=== PATIENT | female | born 1950 | race Caucasian/White ===

== ENCOUNTER 2017-06-07 08:33 | Emergency (ER) | payer MEDICARE ==
[2017-06-07 09:12] LABS: BASOPHILS 0.1 % (0-2); EOSINOPHILS 0 % (0-7); HEMATOCRIT 36.7 % (36.0-48.0); HEMOGLOBIN 11.9 g/dL (12-16); IMMATURE GRANULOCYTES 0.1 % (0-5); LYMPHOCYTES 7.4 % (15-50); MCH 28.7 pg (26.0-34.0); MCHC 32.4 g/dL (31.0-37.0); MCV 88.4 fL (80.0-100.0); MEAN PLATELET VOLUME 8.7 fL (7.4-10.4); MONOCYTES 7.2 % (2-11); NEUTROPHILS 85.2 % (40-80); PLATELET COUNT 190 10x3/uL (130-400); RBC 4.15 10x6/uL (4.00-5.40); WBC 8.9 10x3/uL (4.8-10.8)
[2017-06-07 09:29] LABS: ALBUMIN 3.5 g/dL (3.4-5.0); ANION GAP 12.9 mmol/L (8-16); BILIRUBIN - TOTAL 0.43 mg/dL (0.2-1.3); CALCIUM 9.4 mg/dL (8.5-10.1); CARBON DIOXIDE 27.6 mmol/L (21.0-32.0); POTASSIUM - SERUM 3.5 mmol/L (3.5-5.1); PROTEIN - SERUM 7.9 g/dL (6.4-8.2)
[2017-06-07 10:12] LABS: APPEARANCE SLT CLOUDY (CLEAR); BACTERIA FEW /hpf (NONE SEEN); BILIRUBIN NEGATIVE (NEGATIVE); COLOR YELLOW (YELLOW); EPITHELIAL CELLS 0-5 /hpf (0-5); GLUCOSE NEGATIVE (NEGATIVE); KETONE NEGATIVE (NEGATIVE); NITRITE NEGATIVE (NEGATIVE); PROTEIN NEGATIVE (NEGATIVE); RED CELLS - URINE OCC /hpf (0-5); SPECIFIC GRAVITY 1.005 (1.005-1.020); UROBILINOGEN NORMAL (NORMAL); WHITE CELLS - URINE OCC /hpf (0-5)
[2017-06-07 10:13] LABS: HYALINE CAST 0-5 /lpf (NONE SEEN); MUCUS >1+ /lpf (NONE SEEN); WAXY CAST RARE /lpf (NONE SEEN)
== END 2017-06-07 13:24 | disposition home or self-care (01) ==
LOC: D.ER 08:33
PROVIDERS: Emergency Medicine
DX: K52.9 Noninfective gastroenteritis and colitis, unspecified (principal); R00.0 Tachycardia, unspecified

== ENCOUNTER 2018-11-04 16:21 | Inpatient (IN) | payer OTHER ==
[~2018-11-04] VITALS: Ht 160 cm; Wt 55.2 kg
--- NOTE | ~2018-11-04 | OP ---
PATIENT NAME: CHON LUI MEDICAL RECORD: [id number] :50 LOCATION:[facility] D.2316 ADMISSION DATE:11/04/18 SURGEON: RINA RITTER MD DATE OF OPERATION: 11/23/2018 PREOPERATIVE DIAGNOSES: 1. 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 2. Bilateral pneumonia. POSTOPERATIVE DIAGNOSES: 1. 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 2. Bilateral pneumonia. 3. Very thick secretions in both lungs. The secretions were so thick, they were almost sludge-like. PROCEDURE: 1. Resection of gastrocutaneous stoma with partial gastrectomy. 2. Placement of wound VAC over the resection site. 3. Therapeutic bronchoscopy with bronchoalveolar lavage. SURGEON: Rina Ritter MD BLOCK GREASER: None. BLOOD LOSS: Minimal. ANESTHESIA: General. COMPLICATIONS: None. OPERATIVE COURSE: The patient was conveyed to the operating room electively on 11/23/2018. General anesthesia was induced by the anesthesia staff. A bronchoscopic adapter was applied to the tracheostomy tube. I then advanced a well-lubricated bronchoscope. I first interrogated the right lung and then the left lung. The secretions were dark and almost sludge-like. This required a good bit of bronchoalveolar lavage with normal saline. Cultures were obtained. I irrigated all the segmental bronchi until they were all completely clear. This was done on both sides. The bronchoscope was then withdrawn. The bronchoscopic adapter was then removed. The abdomen was then sterilely prepped and draped. A circular incision was accomplished around the gastrocutaneous stoma in the left upper quadrant. I dissected down to the abdominal wall fascia. I then dissected in toward the gastrocutaneous stoma. The stomach was identified. I then bluntly dissected the stomach from around the peritoneum. I was able to elevate the stomach out through the fascial defect. I then stapled across the opening in the stomach performing a partial tangential gastrectomy with a TA-30 stapler. I transected the stomach distal to the staple line. I then oversewed the staple line with multiple interrupted horizontal mattress 3-0 Vicryl sutures. The stomach was then returned to the abdominal cavity. The muscle and fascia of the abdominal wall was closed with multiple interrupted horizontal mattress #1 Vicryls. Subcutaneous tissues were closed loosely with horizontal mattress #1 Vicryls. I then applied a cellophane type dressing over OPERATIVE REPORT [id number] CHON LUI the open area and then scored this and placed a black wound VAC sponge over the wound. I then bridged this out onto the left flank. An incision was accomplished over the cellophane type dressings on the left flank and a wound VAC disc was then applied and attached to suction, which held a good "raisin." The patient was then extubated and conveyed to the post-anesthesia care unit where she was in stable condition. We can begin using the indwelling gastrostomy tube immediately for food and medications. From my standpoint, the patient could travel and go to the long-term care facility in [place] in transfer tomorrow. TRANSINT:[id number] Voice Confirmation ID: [id number] DOCUMENT ID: [id number] RINA RITTER MD CC: DIANA PRUITT MD, MARY KAY SARKAR MD and DEEPALI MONTAÑO DO [id number] DICTATION DATE: 11/23/182212 LITHOGRAPHED PLATE INSPECTOR: 11/24/18 0250 ADM IN [place] [address] [place] [address]
[2018-11-04 17:37] VITALS: BP 131/47
[2018-11-04 17:56] LABS: BASOPHILS 0.2 % (0-2); EOSINOPHILS 0.5 % (0-7); HEMOGLOBIN 11.6 g/dL (12-16); IMMATURE GRANULOCYTES 0.5 % (0-5); LYMPHOCYTES 8.5 % (15-50); MCH 27.5 pg (26.0-34.0); MCHC 32.2 g/dL (31.0-37.0); MCV 85.3 fL (80.0-100.0); MEAN PLATELET VOLUME 8.7 fL (7.4-10.4); MONOCYTES 3.8 % (2-11); NEUTROPHILS 86.5 % (40-80); RBC 4.22 10x6/uL (4.00-5.40); RDW 18.9 % (11.5-14.5); WBC 6.4 10x3/uL (4.8-10.8)
[2018-11-04 18:10] LABS: PLATELET COUNT 280 10x3/uL (130-400)
[2018-11-04 18:31] LABS: ALBUMIN 2.8 g/dL (3.4-5.0); ALKALINE PHOSPHATASE 92 U/L (46-116); ALT (SGPT) 18 U/L (10-68); BILIRUBIN - TOTAL 0.52 mg/dL (0.2-1.3); CALC OSMOLALITY 275 mosm/kg (275-300); CALCIUM 8.6 mg/dL (8.5-10.1); CARBON DIOXIDE 28.9 mmol/L (21.0-32.0); CHLORIDE - SERUM 96 mmol/L (98-107); CREATININE - SERUM 0.7 mg/dL (0.6-1.3); GLUCOSE 114 mg/dL (74-106); POTASSIUM - SERUM 3.8 mmol/L (3.5-5.1); SODIUM 136 mmol/L (136-145); UREA NITROGEN 20 mg/dL (7-18); eGFR NON AFRICAN AMERICAN 88 mL/min (90-120)
[2018-11-04 20:00] VITALS: BP 96/53
--- NOTE | 2018-11-04 21:50 | NUR ---
PT ALERT & ORIENTED. RED DRAINAGE AROUND PEG TUBE. PT C/O PAIN AND ASKS IF SHE CAN EAT/DRINK. PAGED ON-CALL PHYSICIAN. PT ON REGULAR DIET AND GAVE NORCO-5 FOR PAIN PER TELEPHONE ORDER. PT'S DAUGHTER BRINGING HOME MED LIST UP LATER. NO OTHER NEEDS. WILL CONTINUE TO MONITOR.
[2018-11-04] MEDS ORDERED: IPRAT-ALBUT 0.5-3 ML UPD (23:05)
[2018-11-04] MEDS ORDERED: ASPIRIN EC81 M1 PO (23:06)
[2018-11-04] MEDS ORDERED: LIPITOR20 MG PO (23:07)
[2018-11-04] MEDS ORDERED: SYNTHROID75 MCG PO (23:08)
[2018-11-04] MEDS ORDERED: LOPRESSOR25 MG PO (23:09)
[2018-11-04] MEDS ORDERED: PLAVIX75 MG PO (23:09)
[2018-11-04] MEDS ORDERED: HYDROCODON-ACE1 EAC2 PO (23:11)
[2018-11-04] MEDS ORDERED: HYDROCODON-ACET15 ML PO (23:12)
[2018-11-04 23:55] VITALS: BP 86/40
[2018-11-05 04:00] VITALS: BP 116/59
[2018-11-05 06:31] LABS: ALBUMIN 2.2 g/dL (3.4-5.0); ALKALINE PHOSPHATASE 72 U/L (46-116); BASOPHILS 0.2 % (0-2); BILIRUBIN - TOTAL 0.38 mg/dL (0.2-1.3); CALCIUM 7.8 mg/dL (8.5-10.1); CARBON DIOXIDE 28.5 mmol/L (21.0-32.0); CHLORIDE - SERUM 101 mmol/L (98-107); CREATININE - SERUM 0.6 mg/dL (0.6-1.3); GLUCOSE 85 mg/dL (74-106); HEMATOCRIT 30.6 % (36.0-48.0); HEMOGLOBIN 9.7 g/dL (12-16); IMMATURE GRANULOCYTES 0.2 % (0-5); LYMPHOCYTES 13.8 % (15-50); MCH 27.4 pg (26.0-34.0); MCHC 31.7 g/dL (31.0-37.0); MCV 86.4 fL (80.0-100.0); MEAN PLATELET VOLUME 8.5 fL (7.4-10.4); MONOCYTES 6.2 % (2-11); NEUTROPHILS 77.6 % (40-80); PLATELET COUNT 226 10x3/uL (130-400); PROTEIN - SERUM 6.1 g/dL (6.4-8.2); RBC 3.54 10x6/uL (4.00-5.40); SODIUM 136 mmol/L (136-145); eGFR NON AFRICAN AMERICAN > 90 mL/min (90-120)
[2018-11-05 06:33] LABS: ALT (SGPT) 13 U/L (10-68); CALC OSMOLALITY 270 mosm/kg (275-300); POTASSIUM - SERUM 3.2 mmol/L (3.5-5.1); UREA NITROGEN 12 mg/dL (7-18)
[2018-11-05 06:43] LABS: WBC 4.1 10x3/uL (4.8-10.8)
[2018-11-05 09:04] VITALS: BP 103/46
--- NOTE | 2018-11-05 10:33 | NUR ---
ALERT AND ORIENTED X3. SLIGHT SOB NOTED WITH INSPIRATORY CRACKLES NOTED TO BUQ ANTERIOR. TELEMETRY INTACT SR100 WITH PAC. PEG TUBE INTACT WITH DRAINAGE NOTED WITH DRESSING CHANGED. ENCOURAGD TO USE CALL LIGHT FOR ASSIST.
[2018-11-05 12:54] VITALS: BMI 20.5
[2018-11-05 14:14] VITALS: BP 100/44
[2018-11-05 14:32] VITALS: BP 100/44
--- NOTE | 2018-11-05 14:56 | NUR ---
RESTING WITH EYES CLOSED WITH SCD'S IN PLACE WITHOUT ANY S/S OF THROMBOSIS NOTED.VERBALIZED RELIEF OF PAIN AT THIS TIME WITH CALL LIGHT IN REACH
[2018-11-05 17:53] VITALS: BP 129/61
[2018-11-05 20:00] VITALS: BP 150/77
--- NOTE | 2018-11-05 23:45 | NUR ---
PT INCONTINENT OF URINE. CHANGED BED AND GOWN. PT EXTREMELY SHORT OF BREATH TRYING TO WALK TO TOILET WITH WALKER. PUT PT ON O2 2L/NC. PT HAS DIFFICULTY SWALLOWING PILLS. COMPLETE ASSESSMENT PER FLOW-SHEET. WILL CONTINUE TO MONITOR.
[2018-11-06] VITALS: BP 141/69
--- NOTE | 2018-11-06 02:00 | NUR ---
LOUD HIGH PITCHED SOUND UPON INSPIRATION WHILE PT IS SLEEPING. UPON AUSCULTATION, SOUND MAY BE COMING FROM THROAT RATHER THAN CHEST. PT STATES SHE FEELS FINE AND DENIES CHEST PAIN. OXYGEN SAT IS 96% ON 2L/NC. CALLED RESP TO ASSESS.
--- NOTE | 2018-11-06 02:43 | NUR ---
RT KAYCEE ASSESSED PT. SHE AGREES THAT SOUND IS COMING FROM PT'S THROAT RATHER THAN AIRWAY. OXYGEN SAT IS 99%. PT STATES SHE FEELS FINE. PT TOLD RT THAT SHE "ALWAYS SOUNDS LIKE THAT". NO DISTRESS NOTED. WILL CONTINUE TO MONITOR CLOSELY.
[2018-11-06 04:00] VITALS: BP 90/40
[2018-11-06 05:14] LABS: BASOPHILS 0.1 % (0-2); EOSINOPHILS 0.1 % (0-7); HEMOGLOBIN 10.1 g/dL (12-16); IMMATURE GRANULOCYTES 0.2 % (0-5); LYMPHOCYTES 8.2 % (15-50); MCH 27.8 pg (26.0-34.0); MCHC 32.6 g/dL (31.0-37.0); MCV 85.4 fL (80.0-100.0); MEAN PLATELET VOLUME 8.5 fL (7.4-10.4); MONOCYTES 3.2 % (2-11); NEUTROPHILS 88.2 % (40-80); PLATELET COUNT 208 10x3/uL (130-400); RBC 3.63 10x6/uL (4.00-5.40); RDW 18.5 % (11.5-14.5)
[2018-11-06 05:16] LABS: WBC 9.3 10x3/uL (4.8-10.8)
[2018-11-06 05:40] LABS: ALKALINE PHOSPHATASE 68 U/L (46-116); ALT (SGPT) 12 U/L (10-68); BILIRUBIN - TOTAL 0.68 mg/dL (0.2-1.3); CALC OSMOLALITY 269 mosm/kg (275-300); CALCIUM 7.8 mg/dL (8.5-10.1); CARBON DIOXIDE 23.7 mmol/L (21.0-32.0); CHLORIDE - SERUM 104 mmol/L (98-107); CREATININE - SERUM 0.6 mg/dL (0.6-1.3); GLUCOSE 121 mg/dL (74-106); POTASSIUM - SERUM 3.6 mmol/L (3.5-5.1); SODIUM 136 mmol/L (136-145); UREA NITROGEN 4 mg/dL (7-18); eGFR NON AFRICAN AMERICAN > 90 mL/min (90-120)
[2018-11-06 09:45] VITALS: BP 115/49
--- NOTE | 2018-11-06 10:31 | NUR ---
ALERT AND ORIENTED WITH INCREASED WEAKNESS NOTED. REQUIRES ASSIST TO BSC AND UNABLE TO AMBULATE TO BATHROOM. INCREASED DYSPHASIA BUT ABLE TO TAKE MEDICATIONS CRUSHED AND IN PUDDING. EXPIRATIORY WHEEZING NOTED WITH G-TUBE INTACT AND SITE CLEANED WITH SOROUS DRAINAGE NOTED. ENCOURAGED TO USE CALL LIGHT FOR ASSIST.
[2018-11-06 13:46] VITALS: BP 110/49
[2018-11-06 17:35] VITALS: BP 102/59
[2018-11-06 20:00] VITALS: BP 117/45
--- NOTE | 2018-11-06 20:00 | NUR ---
PT ALERT & ORIENTED. C/O ABDOMINAL PAIN 03/25. GAVE MORPHINE 2 MG IV PUSH. GAVE SCHEDULED MEDS. ASSISTED PT UP TO BEDSIDE COMMODE TO VOID. NO OTHER NEEDS. WILL REASSESS AND CONTINUE TO MONITOR.
[2018-11-07] VITALS: BP 114/43
[2018-11-07 04:00] VITALS: BP 102/54
[2018-11-07 05:50] LABS: BASOPHILS 0.2 % (0-2); EOSINOPHILS 1.2 % (0-7); HEMATOCRIT 30.1 % (36.0-48.0); HEMOGLOBIN 9.5 g/dL (12-16); IMMATURE GRANULOCYTES 0.2 % (0-5); LYMPHOCYTES 13.6 % (15-50); MCH 27.2 pg (26.0-34.0); MCHC 31.6 g/dL (31.0-37.0); MCV 86.2 fL (80.0-100.0); MEAN PLATELET VOLUME 8.3 fL (7.4-10.4); MONOCYTES 5.2 % (2-11); NEUTROPHILS 79.6 % (40-80); PLATELET COUNT 198 10x3/uL (130-400); RBC 3.49 10x6/uL (4.00-5.40); RDW 19.1 % (11.5-14.5)
[2018-11-07 06:16] LABS: ALBUMIN 1.9 g/dL (3.4-5.0); ALKALINE PHOSPHATASE 80 U/L (46-116); ALT (SGPT) 11 U/L (10-68); BILIRUBIN - TOTAL 0.49 mg/dL (0.2-1.3); CALC OSMOLALITY 270 mosm/kg (275-300); CALCIUM 7.7 mg/dL (8.5-10.1); CARBON DIOXIDE 25.8 mmol/L (21.0-32.0); CHLORIDE - SERUM 103 mmol/L (98-107); CREATININE - SERUM 0.7 mg/dL (0.6-1.3); GLUCOSE 93 mg/dL (74-106); SODIUM 137 mmol/L (136-145); UREA NITROGEN 3 mg/dL (7-18); eGFR NON AFRICAN AMERICAN 88 mL/min (90-120)
--- NOTE | 2018-11-07 08:07 | NUR ---
AWAKE AND ALERT. ORIENTED X3. NO C/O AT THIS TIME. LUNGS ARE CLEAR BIALTERALLY, NO COUGH NOTED. SKIN IS INTACT WITHOUT REDNESS EXCEPT PEG SITE WHICH IS LEAKING AT THIS TIME. LEFT PORT IS PATENT WITHOUT REDNESS AT INSERTION SITE. DENIES NEEDS.
[2018-11-07 08:55] VITALS: BP 104/53
--- NOTE | 2018-11-07 10:47 | NUR ---
AMBULATED ALMOST 100 FEET WITH PT. UP IN [facility].
--- NOTE | 2018-11-07 12:30 | NUR ---
ATE ONLY A FEW BITES OF LUNCH. DENIES NEEDS.
[2018-11-07 13:00] VITALS: BP 120/53
--- NOTE | 2018-11-07 13:30 | NUR ---
UP TO [facility] [place] ONE PERSON ASSIST. VOIDED WITHOUT DIFFICULTY.
--- NOTE | 2018-11-07 15:10 | NUR ---
REQUESTED AND GIVNE ONE HYDROCODONE PO FOR C/O PAIN AROUND PEG SITE. DENIES NEEDS.
--- NOTE | 2018-11-07 15:16 | MORECARE ---
CASE MANAGEMENT DISCHARGE SUMMARY PATIENT: CHON LUI UNIT: [id number] ADM DATE: 11/04/18 AGE: 68 : 50 SEX: F ROOM/BED: D.[facility] AUTHOR: NATALIA HEALY PHYSICIAN: REFERRING PHYSICIAN: DEEPALI MONTAÑO DO DATE OF SERVICE: 11/07/18 Discharge Plan Patient Name: CHON LUI Facility: [facility]:[place] : 1950 Planned Disposition: Home with Home Health Anticipated Discharge Date: Discharge Date: Expected LOS: Initial Reviewer: [email or web address] Initial Review Date: 11/07/2018 Generated: 11/07/18 4:16 pm Patient Name: CHON LUI Page [id number] at 1516 All edits/amendments must be made on the electronic document DICTATION DATE: 11/07/181514 HEALTHCARE APPLICATIONS ANALYST: NAHUN 11/07/181514 RPT#: [id number] DC DATE: STATUS: ADM IN [facility] [address] [place] [address] END OF REPORT
--- NOTE | 2018-11-07 15:28 | MORECARE ---
CASE MANAGEMENT DISCHARGE SUMMARY PATIENT: CHON LUI UNIT: [id number] ADM DATE: 11/04/18 AGE: 68 : 50 SEX: F ROOM/BED: D.2231 AUTHOR: NATALIA HEALY PHYSICIAN: REFERRING PHYSICIAN: DEEPALI MONTAÑO DO DATE OF SERVICE: 11/07/18 Discharge Plan Patient Name: CHON LUI Facility: [facility]:[place] [facility] : 1950 Planned Disposition: Home with Home Health Anticipated Discharge Date: Discharge Date: Expected LOS: Initial Reviewer: [email or web address] Initial Review Date: 11/07/2018 Generated: 11/07/18 4:28 pm Comments DCP- Discharge Planning Updated by [email or web address]: Maryse Simpson on 11/07/18 2:[address] Patient Name: CHON LUI Admission Status: Elective Accout number: [id number] Admission Date: 11-04-2018 : 1950 Admission Diagnosis: Attending: DEEPALI MONTAÑO Current LOS: 3 Anticipated DC Date: Planned Disposition: Home with Home Health Primary Insurance: [employer] Discharge Planning Comments: CM met with patient to discuss discharge planning, she is alone in the room. She lives with her daughter, son in law and 3 grand children. She states she uses a walker for ambulation, otherwise is independent with her ADL's. States she can drive, but usually has her daughter or son in law take her where she needs to go. States she gives her own tube feeding with a syringe and gets her feeding supplies from [facility]. I discussed the availability of rehab, SNF, home health and DME, she states her discharge plan is to return home with [facility] (she is current with them and has nursing and PT come out 3 times a week). CM will continue to follow and assist with discharge planning/needs. Compatibility Test Engineer: Maryse Simpson DCPIA - Discharge Planning Initial Assessment Updated by [email or web address]: Maryse Simpson on 11/07/18 3:17 pm * Is the patient Alert and Oriented? Yes * How many steps to enter\exit or inside your home? 1/0 * PCP Dr. Montaño * Pharmacy [facility] * Preadmission Environment Home with Family * ADLs Partial Dependent * Partial ADLs (Assistance needed) Ambulation * Equipment Enteral Feeding and Supplies Nebulizer Walker * List name and contact numbers for known caregivers / representatives who currently or will assist patient after discharge: Tanna Gaffney [facility] - [phone] * Verbal permission to speak to the caregivers and representatives has been obtained from the patient. Yes * Community resources currently utilized Home Health * Please name any agencies selected above. [facility] for Enteral supplies * Additional services required to return to the preadmission environment? No * Can the patient safely return to the preadmission environment? Yes * Has this patient been hospitalized within the prior 30 days at any hospital? Yes Last DP export: 11/07/18 2:16 p Patient Name: CHON LUI Page [phone] at 1528 All edits/amendments must be made on the electronic document DICTATION DATE: 11/07/181527 STOPPER MAKER HELPER: NAHUN 11/07/181527 RPT#: [id number] DC DATE: STATUS: ADM IN [facility] [address] [place] [address] END OF REPORT
[2018-11-07 16:00] VITALS: BP 98/47
--- NOTE | 2018-11-07 18:26 | NUR ---
ATE A FEW BITES OF SUPPER BUT HAD EATEN AN APPLESAUCE WITH [employer] EARLIER. NO CHANGES NOTED. DENIES NEEDS.
[2018-11-07 20:00] VITALS: BP 122/61
--- NOTE | 2018-11-07 20:00 | NUR ---
SITTING UP IN BED, NO C/O OR REQUEST, SEE SHIFT ASSESSMENT CALL LIGHT IN REACH
[2018-11-08] VITALS (57 sets, daily range): BP systolic 60–151; BP diastolic 37–82
[2018-11-08 06:52] LABS: ALKALINE PHOSPHATASE 98 U/L (46-116); ALT (SGPT) 11 U/L (10-68); BILIRUBIN - TOTAL 0.37 mg/dL (0.2-1.3); CALC OSMOLALITY 273 mosm/kg (275-300); CALCIUM 7.9 mg/dL (8.5-10.1); CARBON DIOXIDE 28.8 mmol/L (21.0-32.0); CHLORIDE - SERUM 102 mmol/L (98-107); CREATININE - SERUM 0.6 mg/dL (0.6-1.3); GLUCOSE 109 mg/dL (74-106); PROTEIN - SERUM 6.5 g/dL (6.4-8.2); SODIUM 138 mmol/L (136-145); UREA NITROGEN 3 mg/dL (7-18); eGFR NON AFRICAN AMERICAN > 90 mL/min (90-120)
[2018-11-08 07:00] LABS: BASOPHILS 0.3 % (0-2); EOSINOPHILS 1.8 % (0-7); HEMATOCRIT 31.7 % (36.0-48.0); HEMOGLOBIN 9.9 g/dL (12-16); IMMATURE GRANULOCYTES 0.5 % (0-5); LYMPHOCYTES 15.8 % (15-50); MCH 27.2 pg (26.0-34.0); MCHC 31.2 g/dL (31.0-37.0); MCV 87.1 fL (80.0-100.0); MEAN PLATELET VOLUME 8.4 fL (7.4-10.4); MONOCYTES 6.4 % (2-11); NEUTROPHILS 75.2 % (40-80); PLATELET COUNT 215 10x3/uL (130-400); RBC 3.64 10x6/uL (4.00-5.40); RDW 18.8 % (11.5-14.5); WBC 3.9 10x3/uL (4.8-10.8)
[2018-11-08 07:21] LABS: POTASSIUM - SERUM 2.8 mmol/L (3.5-5.1)
--- NOTE | 2018-11-08 07:59 | NUR ---
AWAKE AND ALERT. ORIENTED X3. NO C/O AT THIS TIME. LUNGS ARE CLEAR BILATERALLY, NO COUGH NOTED. SKIN IS INTACT IWTHOUT REDNESS EXCEPT PEG SITE WHICH IS LEAKING THICK LIGHT BRROWN FLUIDS. LEFT PORT IS PATENT WITHOUT REDNESS AT INSERTION SITE. DENIES NEEDS. NPO FOR PROCEDURE THIS AM.
--- NOTE | 2018-11-08 10:07 | NUR ---
PT RECIEVED. GI TEAM AT BEDSIDE. VS STATED HR 118 SINUS TACK BP 88/54 O2 SAT 95% O2 VIA VENT REFER TO FLOW SHEET FOR SETTINGS. DR SARKAR AT BEDSIDE GIVEN UDPATE. FAMILY IN WAITING AREA GIVEN UPDATE BUT UNABLE TO COME BACK AT THIS TIME WILL BRING BACK IN 15 MINUTES STATED OKAY.
--- NOTE | 2018-11-08 10:14 | NUR ---
DR RITTER AT [facility] GIVEN UPDATE
--- NOTE | 2018-11-08 10:18 | NUR ---
0945-SEE ANESTHESIA FLOW SHEET-CODE BLUE CALLED, CPR INTIATED. SEE CODE SHEET. 1000-ETTUBE PLACED, PATIENT ON PORTABLE VENT, WITH PORTABLE MONITOR. ESCORTED ON BED TO ICU ROOM 2316, RENETTA RHODES RN, DESIREE DALTON RT, STANFORD JEWELL RN.
--- NOTE | 2018-11-08 10:21 | NUR ---
DAUGHTER SAROJ GIVEN UPDATE CVL NEEDED ALL QUESTIONS ANSWERED CONSENT OBTAINED. DR RITTER AT BEDSIDE.
--- NOTE | 2018-11-08 11:15 | NUR ---
16FR FAIRCHILD PLACED AT THIS TIME, PT TOLERATED WELL, COMPLETE LINEN CHANGE, PT TOLERATED WELL
--- NOTE | 2018-11-08 11:45 | NUR ---
DAUGHTER AT BEDSIDE, UPDATE GIVEN, WILL CON'T TO MONITOR
--- NOTE | 2018-11-08 12:58 | NUR ---
NUTRITION F/U PT NOW IN ICU ON VENT. WILL MONITOR PT PROGRESS. ASSIST WITH NUTRITION SUPPORT IF NEEDED. RD FOLLOWING
--- NOTE | 2018-11-08 13:15 | NUR ---
COMPLETE BATH AND LINEN CHANGE,
[2018-11-08 14:22] LABS: CKMB 0.3 U/L (0.0-3.6); CREATINE KINASE 14 UL (21-215)
[2018-11-08 14:23] LABS: TROPONIN-I < 0.017 ng/mL (0.000-0.060)
--- NOTE | 2018-11-08 15:15 | NUR ---
PT AWAKE AT THIS TIME, BANGING ON SIDE RAILS, DR. SARKAR UPDATED,
--- NOTE | 2018-11-08 15:51 | NUR ---
UPDATE CALLED TO DR. GÓMEZ, NEW ORDERS RECIEVED,
--- NOTE | 2018-11-08 17:00 | NUR ---
FAMILY AT BEDSIDE, UPDATE GIVEN
--- NOTE | 2018-11-08 19:46 | NUR ---
PT RECEIVED WITH EYES CLOSED. ON VENT A/C RATE 20, TV 400, O2 40%, PEEP 5.0. PT WITH LEFT CHEST PORT ACCESSED WITH NS 100ML/HR AND LEVOPHED 13.1ML/HR OR 7MCG/MIN AND RIGHT GROIN CVL SALINE LOCKED. PT FOLLOWS COMMANDS. FAIRCHILD PATENT WITH YELLOW URINE NOTED. BILATERAL WRIST RESTRAINTS IN USE. WILL CONTINUE TO OBSERVE.
[2018-11-08 20:01] LABS: CKMB 0.2 U/L (0.0-3.6); CREATINE KINASE 13 UL (21-215)
[2018-11-08 20:11] LABS: TROPONIN-I < 0.017 ng/mL (0.000-0.060)
--- NOTE | 2018-11-08 21:28 | NUR ---
PT RESTING WITH EYES CLOSED. CONTINUES SEDATION. VITAL SIGNS STABLE. WILL CONTINUE TO OBSERVE.
[2018-11-09] VITALS (40 sets, daily range): BP systolic 101–156; BP diastolic 52–96
--- NOTE | 2018-11-09 01:15 | NUR ---
SCHEDULED CARDIAC LABS DRAWN FROM RIGHT GROIN CVL WITHOUT DIFFICULTY. PT TOLERATED WELL. VITAL SIGNS STABLE WILL CONTINUE TO OBSERVE.
[2018-11-09 03:36] LABS: CKMB 0.1 U/L (0.0-3.6); CREATINE KINASE 14 UL (21-215); TROPONIN-I 0.017 ng/mL (0.000-0.060)
[2018-11-09 05:03] LABS: BASOPHILS 0.3 % (0-2); EOSINOPHILS 0.5 % (0-7); HEMATOCRIT 26.2 % (36.0-48.0); HEMOGLOBIN 8.4 g/dL (12-16); IMMATURE GRANULOCYTES 0.3 % (0-5); LYMPHOCYTES 25.7 % (15-50); MCH 27.2 pg (26.0-34.0); MCHC 32.1 g/dL (31.0-37.0); MEAN PLATELET VOLUME 8.5 fL (7.4-10.4); MONOCYTES 10.1 % (2-11); NEUTROPHILS 63.1 % (40-80); PLATELET COUNT 177 10x3/uL (130-400); RBC 3.09 10x6/uL (4.00-5.40); RDW 18.7 % (11.5-14.5); WBC 3.9 10x3/uL (4.8-10.8)
[2018-11-09 05:11] LABS: MCV 84.8 fL (80.0-100.0)
--- NOTE | 2018-11-09 05:25 | NUR ---
PT WITH EYES CLOSED AND CHEST RISING. VSS. WILL CONTINUE TO OBSERVE.
[2018-11-09 05:36] LABS: ALBUMIN 1.6 g/dL (3.4-5.0); ALKALINE PHOSPHATASE 64 U/L (46-116); BILIRUBIN - TOTAL 0.41 mg/dL (0.2-1.3); CHLORIDE - SERUM 107 mmol/L (98-107); CREATININE - SERUM 0.5 mg/dL (0.6-1.3); GLUCOSE 108 mg/dL (74-106); PROTEIN - SERUM 5.1 g/dL (6.4-8.2); SODIUM 142 mmol/L (136-145); eGFR NON AFRICAN AMERICAN > 90 mL/min (90-120)
--- NOTE | 2018-11-09 05:40 | NUR ---
RT CHANGED VENT SETTINGS RATE OF 14 AND O2 30% DUE TO RESULTS OF ABG.
[2018-11-09 06:41] LABS: ALT (SGPT) 31 U/L (10-68); CALC OSMOLALITY 280 mosm/kg (275-300); UREA NITROGEN 4 mg/dL (7-18)
[2018-11-09 06:42] LABS: POTASSIUM - SERUM 2.6 mmol/L (3.5-5.1)
[2018-11-09 06:43] LABS: CALCIUM 6.9 mg/dL (8.5-10.1)
--- NOTE | 2018-11-09 07:15 | NUR ---
REPORT RECIEVED, SHIFT ASSESSMENT COMPLETE, PT IS ON VENT, FOLLOWS COMMANDS, ALL PPP, VSS, WILL CON'T TO MONITOR
--- NOTE | 2018-11-09 07:20 | NUR ---
POTASSIUM 2.[address] MONTAÑO MADE AWARE. FOLLOW ELECTROLYTE PROTOCOLS.
--- NOTE | 2018-11-09 09:30 | NUR ---
CONSENTS SIGNED FOR PROCEDURE TODAY, FAMILY AT BEDSIDE,
--- NOTE | 2018-11-09 10:52 | NUR ---
PT TO GI LAB AT THIS TIME,
--- NOTE | 2018-11-09 11:53 | NUR ---
PT BACK FROM GI LAB, HOOKED TO MONITORS, NEW PEG TO ABDOMEN, OLD PEG SITE CDI
--- NOTE | 2018-11-09 14:50 | OP ---
PATIENT NAME: CHON LUI MEDICAL RECORD: [id number] :50 LOCATION:[facility] D.2316 ADMISSION DATE:11/04/18 SURGEON: TERRY RITTER MD DATE OF OPERATION: 11/09/2018 PREOPERATIVE DIAGNOSIS: Malfunctioning gastrostomy tube. POSTOPERATIVE DIAGNOSES: Malfunctioning gastrostomy tube with scarring of the proximal esophagus that prevented a gastroscope from passing. PROCEDURE: Gastroduodenoscopy with 20-Mosotho percutaneous endoscopic gastrostomy tube placement. SURGEON: Terry Ritter MD GREENSMAN: None. BLOOD LOSS: Minimal. ANESTHESIA: General. The patient arrived in the OR intubated, being mechanically ventilated from the ICU. COMPLICATIONS: None. FINDINGS: Yesterday, during an attempt at a PEG placement the patient suffered a cardiopulmonary arrest. This was before the esophagus was even intubated. She has done pretty well overnight, is writing notes, is awake and we are planning on extubation today. The current G-tube is present within a fold on the left side, is causing ulcerations in the area as well as erythema. I would like to place this gastrostomy tube more centrally where it is less likely to cause ulceration of the underlying skin. OPERATIVE COURSE: The patient was conveyed to the operating room electively on 11/09/2018. General anesthesia was induced by the anesthesia staff. A bite-block was inserted. The patient was positioned in the reverse Trendelenburg position. A pillow was placed underneath her thoracolumbar spine. The abdomen was sterilely prepped and draped. I inserted a gastroscope into the mouth. I intubated the hypopharynx. Despite maneuvers such as jaw thrust extending the neck, flexing the neck and lifting up on the larynx, I was unable to safely intubate the esophagus due to scarring and likely due to the anterior pressure of the endotracheal tube. This approach was abandoned. Sutures to the indwelling left upper quadrant gastrostomy tube were cut. Through the gastrocutaneous stoma, the gastroscope was advanced through the pylorus into the duodenum. I then withdrew back into the stomach. I transilluminated. I found a spot I thought was going to be a pretty satisfactory spot for insertion of the gastrostomy tube and this was in the epigastrium. I transilluminated here, we could visualize this with the lights off in the room. A small skin incision was accomplished. Through the skin incision, I advanced an Angiocath and punctured the antrum of the stomach on the first try. I advanced a guidewire. This was grasped with an endoscopic snare and was withdrawn out through the gastrocutaneous stoma. The wire was attached to a pull-type gastrostomy tube, which was then pulled into place. I then reintubated the gastrocutaneous stoma, OPERATIVE REPORT [id number] CHON LUI visualized that the PEG tube was well placed. Hub and flange devices were attached. I then withdrew the gastroscope and we placed a stomal appliance over the gastrocutaneous stoma in the left upper quadrant. The patient was then conveyed back to the intensive care unit in a critical, but stable condition. TRANSINT:[id number] Voice Confirmation ID: [id number] DOCUMENT ID: [id number] TERRY RITTER MD at 1450 CC: [id number] DICTATION DATE: 11/09/18 1205 LEARNING SPECIALIST: 11/09/[address] [facility] [address] [place] [address]
--- NOTE | 2018-11-09 14:51 | OP ---
PATIENT NAME: CHON LUI MEDICAL RECORD: [id number] :50 LOCATION:[facility] D.2316 ADMISSION DATE:11/04/18 SURGEON: RINA RITTER MD DATE OF OPERATION: 11/08/2018 PREOPERATIVE DIAGNOSIS: Malfunctioning gastrostomy tube. POSTOPERATIVE DIAGNOSES: 1. Malfunctioning gastrostomy tube. 2. Cardiopulmonary arrest. PROCEDURE: 1. Attempted EGD. 2. Placement of right groin 16-cm triple lumen central venous catheter. SURGEON: Rina Ritter MD DIRECTOR OF DIAGNOSTIC IMAGING: None. BLOOD LOSS: Minimal. The risks, possible complications, and alternatives to the procedure were explained to the patient. She elects to proceed. I told the patient that if we are unable to place the PEG tube in a more favorable location, centrally in the abdomen between the xiphoid process and the umbilicus that we would not attempt to place a new gastrostomy tube and she would be left with the current gastrostomy tube. OPERATIVE COURSE: The patient was conveyed to the GI lab electively on 11/08/2018. IV sedation was induced by the anesthesia staff. She really did not receive much propofol at all. I intubated the hypopharynx. As I was getting ready to intubate the esophagus, the patient desaturated very quickly. We began bag valve masked ventilation. Due to prior radiation of the neck, it was difficult to ventilate her. We could not tilt her neck back. It was difficult to perform a jaw thrust maneuver as well. She continued to desat until she developed cardiopulmonary arrest. Wilmer cueto was called. We had ample people who came very quickly to assist with the code blue efforts. The code blue resuscitation was run by Dr. Henderson. Please see the code note. We were able to get the patient intubated and at the time that we transported the patient to the ICU, she had heart rate and pulse. I saw her in the ICU. I went and saw the patient's family. I told them of the events. We needed additional IV access for fluid bolus and IV medications. I discussed her case with Dr. Morillo. The family gave verbal consent for the central venous line. The right groin was sterilely prepped and draped. I avoided the internal jugular site as well as the subclavian site due to a very thickened skin and her history of radiation in these areas. I percutaneously accessed the right common femoral vein in an antegrade fashion. A guidewire passed easily. A small skin reny was accomplished. A vessel dilator was used to dilate the subcutaneous tract. A 16-cm triple lumen central venous catheter was inserted to the hub. It was sutured in place times 3. All lumens flushed easily and aspirated dark, nonpulsatile blood. No x-ray is necessary. I told the nursing staff that they can begin using the OPERATIVE REPORT [id number] CHON LUI central venous line immediately. TRANSINT:[id number] Voice Confirmation ID: [id number] DOCUMENT ID: [id number] RINA RITTER MD at 1451 CC: MARY KAY HENDERSON MD, DEEPALI MONTAÑO DO and FLORINA MORILLO [id number] DICTATION DATE: 11/08/18 1045 DEGREASING SOLUTION RECLAIMER: 11/08/18 1214 ADM IN [address] [place] [address]
--- NOTE | 2018-11-09 14:52 | NUR ---
EXTUBATED TO 4L NC, O2 SAT 98% O2 SAT
--- NOTE | 2018-11-09 17:00 | NUR ---
COMPLETE LINEN CHANGE, PT TOLERATED WELL
--- NOTE | 2018-11-09 19:15 | NUR ---
PT RECEIVED WITH EYES OPEN. VSS. N/C AT 4LPM. PT ALERT AND ORIENTED. STRIDER WITH HX NOTED DUE TO SCARING. PT WITH HX CANCER W/RADIATION. NO S/S OF DISTRESS. WILL CONTINUE TO OBSERVE
--- NOTE | 2018-11-09 23:15 | NUR ---
PT WITH INCREASED STRIDER AND ELEVATED HR. DR GÓMEZ CALLED WITH ORDERS FOR BIPAP. RT ATTEMPTING TO SET UP BIPAP AND PT WITH INCREASED DIFFICULTY WITH BREATHING. ANESTH PAGED DUE TO HX OF DIFFICULTY INTUBATING PER DR GÓMEZ. PT UNABLE TO MAINTAIN O2 SATURATION ER CALLED AND ER PHYSICAN ATTEMPTED AND INTUBATED PT WITH 6FR ETT. DR TONEY PAGED AND RECEIVED ORDERS FOR RESTRAINTS, PROPOFOL, ABGS AND X-RAY. PT SP02 >92% ON 100% O2 ON VENT. HR DROPPED INTO 50'S PRIOR TO INTUBATION AND TACHY AFTER. BP REMAINS STABLE. PROPOFOL AT 5MCG. WITH PT RESTING BUT ABLE TO FOLLOW COMMANDS. WILL CONTINUE TO OBSERVE.
--- NOTE | 2018-11-09 23:50 | NUR ---
DAUGHTER CALL AND MADE AWARE, AT BEDSIDE AT THIS TIME. UPDATE GIVEN AND QUESTIONS ANSWERED.
[2018-11-10] VITALS (25 sets, daily range): BP systolic 71–132; BP diastolic 40–77
[2018-11-10 05:21] LABS: BASOPHILS 0 % (0-2); EOSINOPHILS 0 % (0-7); HEMATOCRIT 27.8 % (36.0-48.0); HEMOGLOBIN 8.6 g/dL (12-16); IMMATURE GRANULOCYTES 0.3 % (0-5); LYMPHOCYTES 7.1 % (15-50); MCH 26.9 pg (26.0-34.0); MCHC 30.9 g/dL (31.0-37.0); MONOCYTES 4.7 % (2-11); NEUTROPHILS 87.9 % (40-80); PLATELET COUNT 172 10x3/uL (130-400); RDW 18.8 % (11.5-14.5)
[2018-11-10 05:22] LABS: MCV 86.9 fL (80.0-100.0); WBC 6.6 10x3/uL (4.8-10.8)
[2018-11-10 05:37] LABS: CALCIUM 7.6 mg/dL (8.5-10.1); CARBON DIOXIDE 23.2 mmol/L (21.0-32.0); CHLORIDE - SERUM 106 mmol/L (98-107); CREATININE - SERUM 0.6 mg/dL (0.6-1.3); GLUCOSE 144 mg/dL (74-106); MAGNESIUM - SERUM 1.6 mg/dL (1.8-2.4); PHOSPHOROUS 2.3 mg/dL (2.5-4.9); SODIUM 140 mmol/L (136-145); eGFR NON AFRICAN AMERICAN > 90 mL/min (90-120)
[2018-11-10 05:38] LABS: CALC OSMOLALITY 279 mosm/kg (275-300); POTASSIUM - SERUM 3.8 mmol/L (3.5-5.1); UREA NITROGEN 6 mg/dL (7-18)
--- NOTE | 2018-11-10 07:55 | NUR ---
Nutrition follow-up/consult for TF: Pt reintubated. PEG placed yesterday. Wt: 122# Labs reviewed RDN will order Pulmocare @ 15 ml/hr with increase to goal rate of 40 ml/hr with 25 ml H2O flush Q hour. RDN following.
--- NOTE | 2018-11-10 16:24 | NUR ---
0700 AWAKE WHILE ON VENT FOLLOWS COMMANDS USES WRITING BOARD FOR COMMUNICATION ASSESSMENT COMPLETE
--- NOTE | 2018-11-10 16:28 | NUR ---
0900 ORAL CARE PERFORMED REPOSITIONED IN BED CALL LIGHT IN REACH
--- NOTE | 2018-11-10 16:28 | NUR ---
1100 LINENS CHANGED RIGHT GROIN CENTRAL LINE DISCONTINUED. PRESSURE DDRESSING APPLIED AFTER MANUAL PRESSURE HELD BY NURSE. DAUGHTER AT BEDSIDE UPDATE GIVEN
--- NOTE | 2018-11-10 16:31 | NUR ---
1300 RESTING QUIETLY ON RIGHT SIDE TURNED PROPOFOL ON INFUSING AT 2.5 MCG/MIN
--- NOTE | 2018-11-10 19:10 | NUR ---
PT RECEIVED WITH EYES CLOSED. ON VENT A/C 18, 400, 60%, 5.0. FAIRCHILD PATENT WITH YELLOW URINE. DRESSING TO RIGHT GROIN WITH MINIMAL BLEEDING NOTED. LEFT CHEST INFUSAPORT PATENT WITH NS, SODIUM PHOS. AND PROPOFOL. EASILY AROUSED TO VERBAL STIMULI. DENIES PAIN AT THIS TIME. BP LOW BUT WITHIN NORMAL LIMITS. HR NS. SPO2 MID 90'S. WILL CONTINUE TO OBSERVE.
--- NOTE | 2018-11-10 19:46 | NUR ---
1500 C/O PAIN DILAUDIN 1MG GIVEN
--- NOTE | 2018-11-10 21:20 | NUR ---
ORAL CARE PROVIDED. DENIES PAIN. B/P WNL. SLEEPS AND EASILY AWOKEN. NO S/S OF DISTRESS. WILL CONTINUE TO OBSERVE.
[2018-11-11] VITALS (23 sets, daily range): BP systolic 86–118; BP diastolic 42–68; Ht 160 cm; Wt 55.2 kg
--- NOTE | 2018-11-11 01:50 | NUR ---
PT WITHOUT RESIDUAL NOTED BY ASPIRATION OF PEG. RATE INCREASED TO 25ML/HR. COLLECTION HARDWARE TO OLD PEG SITE LEAKING, REMOVED AND REPLACED. PT TOLERATED WELL
--- NOTE | 2018-11-11 02:53 | NUR ---
LEAKAGE NOTED FROM PEG OR OLD PEG SITE. PT GIVEN A BATH WITH TOWEL PLACED AT SIDE. PT TOLERATED BATH WELL. REPOSITIONED SELF WITH MIN ASSIST TO CHANGE LINENS. NO S/S OF DISTRESS. WILL CONTINUE TO OBSERVE.
--- NOTE | 2018-11-11 05:21 | NUR ---
PORT CHANGED DUE TO NO DATE NOTED AND COULD NOT DRAW BLOOD. STERILE PROCEDURE USED. UNABLE TO DRAW WITH NEW ACCESS. LAB NOTIFED FOR LAB DRAW. NEW LINES AND FLUIDS. NO LEAKAGE NOTED TO DRAINAGE COLLECTION WITH DRAINAGE NOTED. PT ALERT. WILL CONTINUE TO OBSERVE.
[2018-11-11 06:48] LABS: BASOPHILS 0 % (0-2); EOSINOPHILS 0 % (0-7); HEMATOCRIT 25.3 % (36.0-48.0); IMMATURE GRANULOCYTES 0.2 % (0-5); MCH 27.3 pg (26.0-34.0); MCHC 31.6 g/dL (31.0-37.0); MCV 86.3 fL (80.0-100.0); MEAN PLATELET VOLUME 9.1 fL (7.4-10.4); MONOCYTES 5.9 % (2-11); NEUTROPHILS 82.9 % (40-80); PLATELET COUNT 152 10x3/uL (130-400); RBC 2.93 10x6/uL (4.00-5.40); RDW 19.3 % (11.5-14.5)
[2018-11-11 06:59] LABS: CALC OSMOLALITY 283 mosm/kg (275-300); CALCIUM 7.8 mg/dL (8.5-10.1); CHLORIDE - SERUM 108 mmol/L (98-107); CREATININE - SERUM 0.6 mg/dL (0.6-1.3); GLUCOSE 139 mg/dL (74-106); POTASSIUM - SERUM 3.6 mmol/L (3.5-5.1); SODIUM 142 mmol/L (136-145); eGFR NON AFRICAN AMERICAN > 90 mL/min (90-120)
--- NOTE | 2018-11-11 07:00 | NUR ---
REPORT RECEVIED FROM THE OFF GOING RN. SEE ASSESSMENT IN THE PTS FLOW SHEET. PT AWAKE AND ALERT AND ABLE TO COMMUNICATE WITH PEN AND PAPER. PT ON THE VENTILATOR. SEE ASSESSMENT FOR MORE DETAILS. LEFT UPPER CHEST INFUSAPORT NOTED. SEE IV FLUIDS IN FLOW SHEET. PEG TUBE NOTED WITH NO RESIDUAL. RIGHT NEXT TO THE PEG TUBE, OLD PEG TUBE SITE NOTED WITH A COLOSTOMY BAG COVERING THE STOMA. GREEN BILE DRAINAGE NOTED. FC NOTED WITH CLEAR, YELLOW URINE. CALL LIGHT IN REACH. WILL CONT POC.
[2018-11-11 07:04] LABS: UREA NITROGEN 11 mg/dL (7-18)
[2018-11-11 07:05] LABS: WBC 4.9 10x3/uL (4.8-10.8)
--- NOTE | 2018-11-11 10:44 | NUR ---
150 CC OF YELLOW/GREEN SECREATIONS EMPTYIED FROM ABD COLOSTOMY/DRAIN BAG.
--- NOTE | 2018-11-11 11:08 | NUR ---
Nutrition Follow Up: Pt was asleep at the time of RD visit. Interview deferred. Chart reviewed. Pt continues on vent. Pt is tolerating current TF regimen of Pulmocare @ 25 ml/hr with goal rate of 40 ml/hr. H2O flushes 25 ml/hr. I>O Wt gain noted Labs reviewed Meds noted including Levo, Diprivan @ 1.7 ml/hr - providing 45 kcal/d Rec continue advancing TF 10 ml every 6-8 hours as tolerated to goal rate of 40 ml/hr. H2O flushes 25 ml/hr. RD following.
--- NOTE | 2018-11-11 13:02 | NUR ---
PT CONT TO BE REPOSITIONED Q 2 HOURS. TUBE FEEDINGS INCREASED. NO RESIDUAL IN PEG TUBE BUT YELLOW/GREEN TUBE COLOR SECREATIONS COMING FROM STOMA (OLD PEG TUBE). WILL CONT POC.
--- NOTE | 2018-11-11 15:18 | NUR ---
ASKED THE PT IF SHE WAS HURTING AND SHE SHOOK HER HEAD YES. PRN HYDROMORPHONE GIVEN. SEE MAR.
--- NOTE | 2018-11-11 16:00 | NUR ---
DR SARKAR CALLED AND NOTIFIED ABOUT I&O'S. NO N.O'S WILL CONT POC.
--- NOTE | 2018-11-11 19:45 | NUR ---
RECEIVED CARE OF PT, ASSESSMENT PER FLOWSHEET. ORAL CARE AND SUCTIONING PROVIDED, POSITIONED FOR COMFORT, HR SR ON CM, WILL MONITOR.
--- NOTE | 2018-11-11 23:45 | NUR ---
REASSESSMENT PER FLOWSHEET, SOME DRAINAGE NOTED FROM PEG SITE-DRESSING CHANGED, PARTIAL LINEN CHANGE DONE. VSS
[2018-11-12] VITALS (24 sets, daily range): BP systolic 89–156; BP diastolic 45–89
--- NOTE | 2018-11-12 01:50 | NUR ---
PT RESTING IN BED WITH EYES CLOSED, VSS, CONT POC.
--- NOTE | 2018-11-12 02:19 | NUR ---
PT C/O PAIN, PRN DILAUDID 1 MG ADMINISTERED VIA SIVP PER MD ORDER, WILL MONITOR FOR DESIRED EFFECT. PT POSITIONED FOR COMFORT SUPPORTED WITH PILLOWS.
[2018-11-12 04:58] LABS: CALC OSMOLALITY 287 mosm/kg (275-300); CALCIUM 7.6 mg/dL (8.5-10.1); CARBON DIOXIDE 21.7 mmol/L (21.0-32.0); CHLORIDE - SERUM 109 mmol/L (98-107); CREATININE - SERUM 0.5 mg/dL (0.6-1.3); GLUCOSE 143 mg/dL (74-106); PHOSPHOROUS 2.6 mg/dL (2.5-4.9); POTASSIUM - SERUM 3.6 mmol/L (3.5-5.1); SODIUM 143 mmol/L (136-145); eGFR NON AFRICAN AMERICAN > 90 mL/min (90-120)
[2018-11-12 04:59] LABS: UREA NITROGEN 16 mg/dL (7-18)
--- NOTE | 2018-11-12 05:10 | NUR ---
AM LABS REVIEWED, NOTHING TO TREAT PER ELECTROLYTE PROTOCOL.
--- NOTE | 2018-11-12 08:13 | NUR ---
AWAKE, ALERT, FOLLOWS COMMANDS, F/C COLLECTION BAG ATTACHED TO OLD PEG TUBE SITE DRAIN TO REDUCE BACK FLOW.
--- NOTE | 2018-11-12 09:46 | NUR ---
PATIENT EXTUBATED TO 3LPM/NC, YA WELL, RESTRAINTS REMOVED AT THAT TIME ALSO, O2 SAT 96%
[2018-11-12 13:18] LABS: CKMB 0.1 U/L (0.0-3.6); CREATINE KINASE 15 UL (21-215)
[2018-11-12 13:21] LABS: TROPONIN-I < 0.017 ng/mL (0.000-0.060)
--- NOTE | 2018-11-12 13:21 | NUR ---
DC INSTRUCTIONS GIVEN, IV REMOVED, RX GIVEN TO , TO WC AND TAKEN TO FRONT DOOR.
--- NOTE | 2018-11-12 14:25 | NUR ---
SPOKE WITH PATIENT, SHE DENIES AND COMPLAINT AT PRESENT, RESTING QUIETLY EYES OPEN AND RESPONS QUICKLY AND APPROPRIATELY TO VERBAL CUE.
--- NOTE | 2018-11-12 21:00 | NUR ---
1 UNIT PRBC STARTED AT THIS TIME.
--- NOTE | 2018-11-12 23:00 | NUR ---
PT IN BED REPOSITIONED PER REQUEST DENIES FURTHER NEEDS.
[2018-11-13] VITALS (24 sets, daily range): BP systolic 112–160; BP diastolic 56–96
--- NOTE | 2018-11-13 01:00 | NUR ---
PT IN BED WITH EYES CLOSED RESTING QUIETLY. EVEN AND UNLABORED RESPIRATIONS NOTED AT THIS TIME.
--- NOTE | 2018-11-13 03:00 | NUR ---
DRESSING TO OLD PEG SITE HAD BECOME SOILED AND LOOSE. DRESSING CHANGED. PT DENIES NEEDS AT THIS TIME.
--- NOTE | 2018-11-13 04:00 | NUR ---
PT RESTING IN BED EYES CLOSED, VSS, NOTES REVIEWED, AGREE WITH PREVIOUS ASSESSMENTS.
--- NOTE | 2018-11-13 05:36 | NUR ---
PT IN BED EYES CLOSED. EVEN AND UNLABORED RESPIRATIONS NOTED AT THIS TIME
[2018-11-13 07:15] LABS: ALBUMIN 1.9 g/dL (3.4-5.0); ALKALINE PHOSPHATASE 63 U/L (46-116); ALT (SGPT) 21 U/L (10-68); BILIRUBIN - TOTAL 0.61 mg/dL (0.2-1.3); CALC OSMOLALITY 279 mosm/kg (275-300); CARBON DIOXIDE 26.3 mmol/L (21.0-32.0); CHLORIDE - SERUM 105 mmol/L (98-107); CREATININE - SERUM 0.3 mg/dL (0.6-1.3); GLUCOSE 115 mg/dL (74-106); MAGNESIUM - SERUM 1.5 mg/dL (1.8-2.4); PHOSPHOROUS 1.8 mg/dL (2.5-4.9); PROTEIN - SERUM 5.6 g/dL (6.4-8.2); SODIUM 141 mmol/L (136-145); UREA NITROGEN 7 mg/dL (7-18); eGFR NON AFRICAN AMERICAN > 90 mL/min (90-120)
[2018-11-13 07:16] LABS: POTASSIUM - SERUM 2.6 mmol/L (3.5-5.1)
[2018-11-13 07:17] LABS: CALCIUM 6.8 mg/dL (8.5-10.1)
[2018-11-13 07:41] LABS: BASOPHILS 0 % (0-2); EOSINOPHILS 0 % (0-7); HEMOGLOBIN 9.9 g/dL (12-16); IMMATURE GRANULOCYTES 0.3 % (0-5); LYMPHOCYTES 8.8 % (15-50); MCH 26.8 pg (26.0-34.0); MCHC 31.9 g/dL (31.0-37.0); MONOCYTES 6.2 % (2-11); NEUTROPHILS 84.7 % (40-80); PLATELET COUNT 209 10x3/uL (130-400); RBC 3.69 10x6/uL (4.00-5.40); RDW 18.5 % (11.5-14.5); WBC 6.8 10x3/uL (4.8-10.8)
--- NOTE | 2018-11-13 09:20 | NUR ---
UP TO CHAIR VIA ONE PT AND ONE RN, YA WELL,
--- NOTE | 2018-11-13 15:00 | NUR ---
NO CHANGES NOTED AT PRESENT
--- NOTE | 2018-11-13 19:30 | NUR ---
RECEIVED CARE OF PT, ASSESSMENT PER FLOWSHEET. PT POSITIONED FOR COMFORT SUPPORTED WITH PILLOWS, SOME LEAKAGE NOTED AROUND PEG SITE-REINFORCED AND PARTIAL LINEN CHANGE DONE.
--- NOTE | 2018-11-13 21:40 | NUR ---
PT DAUGHTER CALLED PER PT REQUEST, STATES SHE WILL BE BY TO VISIT IN A "LITTLE BIT." PT INFORMED.
--- NOTE | 2018-11-13 23:11 | NUR ---
DR GÓMEZ CALLED AND UPDATED REGARDING ABG'S AND PT CONDITION, NO FURTHER ORDERS RECEIVED AT THIS TIME.
--- NOTE | 2018-11-13 23:15 | NUR ---
PT DAUGHTER CALLED, PASSWORD PROVIDED UPDATE GIVEN REGARDING PT CONDITION, ALL QUESTIONS ANSWERED.
[2018-11-14] VITALS (24 sets, daily range): BP systolic 76–156; BP diastolic 52–475
[2018-11-14 06:57] LABS: ALKALINE PHOSPHATASE 81 U/L (46-116); ALT (SGPT) 26 U/L (10-68); BILIRUBIN - TOTAL 0.58 mg/dL (0.2-1.3); CALC OSMOLALITY 268 mosm/kg (275-300); CALCIUM 7.7 mg/dL (8.5-10.1); CHLORIDE - SERUM 97 mmol/L (98-107); GLUCOSE 151 mg/dL (74-106); PROTEIN - SERUM 6.2 g/dL (6.4-8.2); SODIUM 134 mmol/L (136-145); UREA NITROGEN 8 mg/dL (7-18)
[2018-11-14 07:00] LABS: CREATININE - SERUM 0.6 mg/dL (0.6-1.3); MAGNESIUM - SERUM 1.9 mg/dL (1.8-2.4); POTASSIUM - SERUM 3.2 mmol/L (3.5-5.1); eGFR NON AFRICAN AMERICAN > 90 mL/min (90-120)
[2018-11-14 07:02] LABS: PHOSPHOROUS 1.2 mg/dL (2.5-4.9)
[2018-11-14 07:34] LABS: BASOPHILS 0 % (0-2); EOSINOPHILS 1.3 % (0-7); HEMATOCRIT 35.8 % (36.0-48.0); HEMOGLOBIN 11.8 g/dL (12-16); IMMATURE GRANULOCYTES 0.8 % (0-5); LYMPHOCYTES 9.7 % (15-50); MCH 27.2 pg (26.0-34.0); MCV 82.5 fL (80.0-100.0); MEAN PLATELET VOLUME 9.1 fL (7.4-10.4); MONOCYTES 2.3 % (2-11); NEUTROPHILS 85.9 % (40-80); PLATELET COUNT 254 10x3/uL (130-400); RBC 4.34 10x6/uL (4.00-5.40); RDW 18.1 % (11.5-14.5); WBC 3.8 10x3/uL (4.8-10.8)
--- NOTE | 2018-11-14 11:00 | NUR ---
NO CHANGE NOTED
--- NOTE | 2018-11-14 13:01 | NUR ---
NUTRITION F/U PT ON BIPAP. PEG TUBE. PULMOCARE AT GOAL RATE 40 CC/HR. RD FOLLOWING
--- NOTE | 2018-11-14 15:00 | NUR ---
NO CHANGE NOTED
--- NOTE | 2018-11-14 19:12 | NUR ---
REPORT RECEIVED, CARE ASSUMED. PT IS RESTING IN BED ON THE BIPAP AT THIS TIME. NO NEEDS VOICED. INITIAL ASSESSMENT COMPLETED, SEE FLOWSHEET FOR DETAILS. NO SIGNS OF ACUTE DISTRESS. WILL CONTINUE TO MONITOR.
--- NOTE | 2018-11-14 21:12 | NUR ---
PT IS RESTING IN BED ON THE BIPAP. NO NEEDS VOICED/NOTED. NO SIGNS OF ACUTE DISTRESS. FAMILY AT BEDSIDE AT THIS TIME. WILL CONTINUE TO MONITOR.
--- NOTE | 2018-11-14 23:13 | NUR ---
REASSESSMENT COMPLETED, SEE FLOWSHEET FOR DETAILS. PT IS RESTING IN BED ON THE BIPAP AT THIS TIME. PT VOICES NO NEEDS. NO SIGNS OF ACUTE DISTRESS. WILL CONTINUE TO MONITOR.
[2018-11-15] VITALS (24 sets, daily range): BP systolic 95–134; BP diastolic 50–97
--- NOTE | 2018-11-15 01:13 | NUR ---
PT IS RESTING IN BED WITH BIPAP ON. PT VOICES NO NEEDS AT THIS TIME. NO SIGNS OF ACUTE DISTRESS. WILL CONTINUE TO MONITOR.
--- NOTE | 2018-11-15 03:14 | NUR ---
REASSESSMENT COMPLETED, SEE FLOWSHEET FOR DETAILS. PT IS RESTING IN BED WITH BIPAP ON. PT HAS BEEN PULLING AT MASK OCASSIONALLY. REINFORCED NEED TO LEAVE BIPAP ON AT THIS TIME. NO SIGNS OF ACUTE DISTRESS. WILL CONTINUE TO MONITOR.
[2018-11-15 04:47] LABS: ALBUMIN 1.5 g/dL (3.4-5.0); ALKALINE PHOSPHATASE 77 U/L (46-116); ALT (SGPT) 20 U/L (10-68); CALC OSMOLALITY 271 mosm/kg (275-300); CALCIUM 7.9 mg/dL (8.5-10.1); CARBON DIOXIDE 29.8 mmol/L (21.0-32.0); CHLORIDE - SERUM 99 mmol/L (98-107); CREATININE - SERUM 0.6 mg/dL (0.6-1.3); GLUCOSE 160 mg/dL (74-106); HEMATOCRIT 33.3 % (36.0-48.0); HEMOGLOBIN 10.8 g/dL (12-16); MAGNESIUM - SERUM 1.9 mg/dL (1.8-2.4); MCH 27.2 pg (26.0-34.0); MCHC 32.4 g/dL (31.0-37.0); MCV 83.9 fL (80.0-100.0); MEAN PLATELET VOLUME 9.3 fL (7.4-10.4); PLATELET COUNT 207 10x3/uL (130-400); POTASSIUM - SERUM 3.7 mmol/L (3.5-5.1); PROTEIN - SERUM 5.6 g/dL (6.4-8.2); RBC 3.97 10x6/uL (4.00-5.40); RDW 18.6 % (11.5-14.5); SODIUM 135 mmol/L (136-145); eGFR NON AFRICAN AMERICAN > 90 mL/min (90-120)
[2018-11-15 04:55] LABS: WBC 6.7 10x3/uL (4.8-10.8)
[2018-11-15 04:59] LABS: UREA NITROGEN 11 mg/dL (7-18)
[2018-11-15 05:06] LABS: LYMPHOCYTES 4 % (15-50); MONOCYTES 1 % (2-11); NEUTROPHILS 78 % (40-80); PLATELET ESTIMATE NORMAL
--- NOTE | 2018-11-15 05:14 | NUR ---
PT IS RESTING IN BED WITH THE BIPAP ON. PT IS CONTINUING TO PULL AT MASK. CONTINUED REINFORCEMENT OF NEED FOR BIPAP. PT VOICES NO FURTHER NEEDS. NO SIGNS OF ACUTE DISTRESS. WILL CONTINUE TO MONITOR.
--- NOTE | 2018-11-15 07:17 | NUR ---
BED BATH AND TOTAL LINEN CHANGE PROVIDED AT THIS TIME. DRAINAGE SYSTEM FOR OLD PEG HAS BEEN CHANGED OUT WELL. ALSO NOTED PT TEMP OF 93.6, BEAR HUGGER PLACED. WILL CONTINUE PLAN OF CARE.
--- NOTE | 2018-11-15 09:16 | NUR ---
RESIDUAL NOTED AT 10ML TO PEG.
--- NOTE | 2018-11-15 10:15 | NUR ---
UP IN BED RESTING AT THIS TIME. NO ACUTE DISTRESS NOTED. PT RESPIRATIONS STEADY AND UNLABORED. ABLE TO STATE NEEDS. TEMP HAS RISEN TO 96.3 AT THIS TIME, BEAR HUGGER STILL IN USE. PT AWAKENS EASILY WHEN SPOKEN TO. WILL CONTINUE PLAN OF CARE.
--- NOTE | 2018-11-15 11:07 | NUR ---
TEMP 97.6. PT COMPLAINT THAT SHE FEELS TOO WARM. BEAR HUGGER TURNED OFF FOR NOW. PHYSICIAN IN ROOM. WILL CONTINUE PLAN OF CARE.
--- NOTE | 2018-11-15 12:40 | NUR ---
BIPAP BACK IN PLACE AT THIS TIME. PT NOTED TO HAVE TROUBLE BREATHING. AFTER BIPAP PLACED, OXYGEN SATURATION NOTED AT 98%. NO ACUTE DISTRESS NOTED. PT TURNED Q2H AND ORAL CARE PROVIDED Q2H. SHAVON CARE AND FAIRCHILD CARE ALSO PROVIDED. PARTIAL LINEN CHANGE PROVIDED. NO ACUTE DISTRESS NOTED. WILL CONTINUE PLAN OF CARE.
--- NOTE | 2018-11-15 14:36 | NUR ---
TEMPERATURE NOW 95.8, BEAR HUGGER TURNED ON. WILL CONTINUE PLAN OF CARE.
--- NOTE | 2018-11-15 16:05 | NUR ---
TEMP 97.6.
--- NOTE | 2018-11-15 16:17 | NUR ---
UP IN BED WATCHING TV AT THIS TIME. DENIES ANY NEEDS. PT TURNED Q2H. ORAL CARE PROVIDED Q2H. NOTED REDNESS TO PTS NOSE FROM BIPAP USE. MEPILEX DRESSING CUT TO FIT OVER TOP OF NOSE FOR PT TO HELP PROTECT SKIN FROM BIPAP MASK. PT STATED AFTER BIPAP WAS PLACED IT FELT MUCH BETTER. NO ACUTE DISTRESS NOTED. WILL CONTINUE PLAN OF CARE.
--- NOTE | 2018-11-15 16:37 | NUR ---
DR PRUITT AND DR RITTER NOTIFIED OF PTS LOW TEMPERATURES TODAY WELL THAT TEMPERATURE WILL DROP WHEN BEAR HUGGER IS REMOVED. NO NEW ORDERS RECIEVED. THEY BOTH STATED WE WILL WATCH IT. WILL CONTINUE PLAN OF CARE.
--- NOTE | 2018-11-15 18:02 | NUR ---
RESIDUAL NOTED AT 120 ML TO PEG.
--- NOTE | 2018-11-15 23:45 | NUR ---
PT SUDDENLY C/O FEELING SOB. O2 SAT IS UNCHANGED. LAID BACK IN BED AND BECAME UNRESPONSIVE. HEART RATE IS DECREASING . BIPAP REMOVED AND START BAGGING. DIFFICULT TO GET CHEST RISE. CODE BLUE INITIATED. SEE CODE BLUE SHEET.
[2018-11-16] VITALS (39 sets, daily range): BP systolic 69–179; BP diastolic 37–97
--- NOTE | 2018-11-16 00:25 | NUR ---
CALLED HERMINIA PALAFOX APN DUE TO DECREASE IN BP. ORDER RECIEVED FOR LEVOPHED TO BE TITRATED TO MAINTAIN SBP > 90.
--- NOTE | 2018-11-16 03:00 | NUR ---
RE-ASSESSMENT COMPLETE, PER NURSING FLOWSHEET. PATIENT REPOSITIONED, ORAL CARE PROVIDED, NO OTHER NEEDS COMMUNICATED OR NOTED, C/L IN REACH
[2018-11-16 04:57] LABS: BASOPHILS 0.1 % (0-2); EOSINOPHILS 0 % (0-7); HEMATOCRIT 29.2 % (36.0-48.0); HEMOGLOBIN 9.4 g/dL (12-16); IMMATURE GRANULOCYTES 0.3 % (0-5); LYMPHOCYTES 0.8 % (15-50); MCH 26.8 pg (26.0-34.0); MCHC 32.2 g/dL (31.0-37.0); MCV 83.2 fL (80.0-100.0); MEAN PLATELET VOLUME 9.6 fL (7.4-10.4); MONOCYTES 2.8 % (2-11); RBC 3.51 10x6/uL (4.00-5.40); RDW 18.2 % (11.5-14.5)
[2018-11-16 05:02] LABS: PLATELET COUNT 262 10x3/uL (130-400); WBC 11.1 10x3/uL (4.8-10.8)
[2018-11-16 05:21] LABS: ALBUMIN 1.3 g/dL (3.4-5.0); ALKALINE PHOSPHATASE 99 U/L (46-116); ALT (SGPT) 82 U/L (10-68); BILIRUBIN - TOTAL 0.52 mg/dL (0.2-1.3); CALC OSMOLALITY 282 mosm/kg (275-300); CALCIUM 7.4 mg/dL (8.5-10.1); CARBON DIOXIDE 31.8 mmol/L (21.0-32.0); CHLORIDE - SERUM 100 mmol/L (98-107); CREATININE - SERUM 0.6 mg/dL (0.6-1.3); GLUCOSE 204 mg/dL (74-106); MAGNESIUM - SERUM 1.9 mg/dL (1.8-2.4); POTASSIUM - SERUM 3.3 mmol/L (3.5-5.1); PROTEIN - SERUM 5.2 g/dL (6.4-8.2); SODIUM 137 mmol/L (136-145); UREA NITROGEN 20 mg/dL (7-18); eGFR NON AFRICAN AMERICAN > 90 mL/min (90-120)
--- NOTE | 2018-11-16 07:00 | NUR ---
LYING IN BED ON VENT AT THIS TIME. PT DOES NOT FOLLOW COMMANDS. DOES FLEX ARMS INWARD IN A POSTURING ACTION, BOTH ARMS, WELL SOME EYEBROW FURROWING TO DISCOMFORT NOTED. PULSE RATE NOTED AT 149 SINUS TACH WITH PVC AND BLOOD PRESSURE 179/97. REPOSITIONGING PROVIDED, SHAVON CARE AND FAIRCHILD CARE PROVIDED. WILL CONTINUE TO OBSERVE.
--- NOTE | 2018-11-16 09:08 | NUR ---
PT RECIEVED SCHEDULED BETA KARSON AN HOUR AGO. HEART RATE NOW NOTED AT 103 SINUS TACH WITH SOME PVS AND BLOOD PRESSURE 131/24. WILL CONTINUE TO OBSERVE.
--- NOTE | 2018-11-16 09:39 | NUR ---
NUTRITION F/U CHART REVIEWED. PT INTUBATED. NURSING REPORTS PULMOCARE OFF S/P CODE BLUE. WILL MONITOR PT PROGRESS, PROVIDE PULMOCARE WHEN RESUMED. RD FOLLOWING
--- NOTE | 2018-11-16 11:42 | NUR ---
INFUSAPORT NEEDLE, FORBES NEEDLE, CHANGED OUT AT THIS TIME ACCORDING TO HOSPITAL POLICY USING STERILE PROCEDURE. NEW SITE FLUSHES WELL, DOES NOT DRAW. THE OLD ACCESS DID NOT DRAW EITHER. NO ACUTE DISTRESS NOTED. WILL CONTINUE PLAN OF CARE.
--- NOTE | 2018-11-16 12:00 | NUR ---
PTS FAMILY HAVE SPOKEN WITH DR PRUITT AND DR GONZALEZ, ALL QUESTIONS AND CONCERNS ADRESSED. NO DECISIONS HAVE BEEN MADE REGARDING CHANGING PLAN OF CARE. PT IS STILL FULL CODE. PTS DAUGHTER STATES SHE WISHES TO HAVE MORE TIME TO MAKE ANY NEW DECISIONS. WILL CONTINUE PLAN OF CARE.
--- NOTE | 2018-11-16 14:04 | NUR ---
BED BATH AND TOTAL LINEN CHANGE PROVIDED AT THIS TIME. ALSO NOTED DRAINAGE SYSTEM OVER OLD PEG HAS BEEN CHANGED AND SURGICAL SPONGE DRESSING CHANGED TO PEG. PEG IS CLAMPED AT THIS TIME PER DR PRUITT ORDERS WHO STATED TO NOT START TUBE FEEDS UNTIL TOMORROW. NOTED PT WITHDREW TO DISCOMFORT SLIGHTLY AND SLIGHTLY OPENED EYES, A YAWN WAS ALSO SEEN DURING THIS TIME. PT TURNED Q2H. FAMILY AT BEDSIDE. ORAL CARE PROVIDED Q2H. WILL CONTINUE PLAN OF CARE.
--- NOTE | 2018-11-16 14:52 | NUR ---
POTASSIUM RECHECK NOTED AT 3.4 AFTER REPLACED EARLIER TODAY. REPLACED AGAIN PER ELEVTROLYTE PROTOCOL, RECHECK SCHEDULED FOR 1899. ALSO NOTED PHOSPHEROUS THIS AM WAS 2.0, COVERED PER ELECTROLYTE PROTOCOL, RECHECK SCHEDULED WITH AM LABS. WILL CONTINUE PLAN OF CARE.
--- NOTE | 2018-11-16 16:23 | NUR ---
NO ACUTE DISTRESS NOTED. PT EYES OPEN AND PT BLINKING, DOES NOT FOLLOW COMMANDS, BUT DOES TURN HEAD TOWARDS VOICE. NO ACUTE DISTRESS NOTED. PT TURNED Q2H. ORAL CARE PROVIDED Q2H. SHAVON CARE AND FAIRCHILD CARE PROVIDED. WILL CONTINUE PLAN OF CARE.
--- NOTE | 2018-11-16 18:24 | NUR ---
NO ACUTE DISTRESS NOTED. NO CHANGE. PT TURNED Q2H. ORAL CARE PROVIDED Q2H. WILL CONTINUE PLAN OF CARE.
[2018-11-17] VITALS (24 sets, daily range): BP systolic 101–151; BP diastolic 46–86
[2018-11-17 04:33] LABS: BASOPHILS 0.1 % (0-2); EOSINOPHILS 0 % (0-7); HEMATOCRIT 25.5 % (36.0-48.0); HEMOGLOBIN 8.1 g/dL (12-16); IMMATURE GRANULOCYTES 0.4 % (0-5); LYMPHOCYTES 3.4 % (15-50); MCH 26.7 pg (26.0-34.0); MCHC 31.8 g/dL (31.0-37.0); MCV 84.2 fL (80.0-100.0); MEAN PLATELET VOLUME 9.7 fL (7.4-10.4); MONOCYTES 4.3 % (2-11); NEUTROPHILS 91.8 % (40-80); RBC 3.03 10x6/uL (4.00-5.40)
[2018-11-17 04:53] LABS: PLATELET COUNT 193 10x3/uL (130-400)
[2018-11-17 05:02] LABS: ALBUMIN 1.2 g/dL (3.4-5.0); ALKALINE PHOSPHATASE 72 U/L (46-116); BILIRUBIN - TOTAL 0.48 mg/dL (0.2-1.3); CALCIUM 7.6 mg/dL (8.5-10.1); CARBON DIOXIDE 29.5 mmol/L (21.0-32.0); CHLORIDE - SERUM 103 mmol/L (98-107); CREATININE - SERUM 0.7 mg/dL (0.6-1.3); MAGNESIUM - SERUM 1.8 mg/dL (1.8-2.4); PHOSPHOROUS 2.4 mg/dL (2.5-4.9); POTASSIUM - SERUM 3.8 mmol/L (3.5-5.1); SODIUM 140 mmol/L (136-145); UREA NITROGEN 23 mg/dL (7-18); eGFR NON AFRICAN AMERICAN 88 mL/min (90-120)
[2018-11-17 05:04] LABS: ALT (SGPT) 47 U/L (10-68); CALC OSMOLALITY 284 mosm/kg (275-300); GLUCOSE 134 mg/dL (74-106)
--- NOTE | 2018-11-17 07:00 | NUR ---
REC'D REPORT AND RESUMED CARE, ETT TO VENTILATION AND SECURED, FIO2 40%, SAT 97%, LEFT SC PORT ACCESSED WITH NS INFUSING AT KVO, RT FA PIV SL, FAIRCHILD CATH WITH CLOUDY YELLOW DRAINAGE, B/L RESTRAINTS, ASSESSMENT COMPLETED PER FLOWSHEET, VSS, EYES OPEN FOLLOWS COMMANDS, INCONTINENT OF SOFT STOOL, SKINCARE AND LINEN CHANGE COMPLETED, REPOSITIONED TO RIGHT SIDE WITH PILLOW PROPPED TO BACK AND HEELS FLOATED
--- NOTE | 2018-11-17 09:15 | NUR ---
MORNING MEDS GIVEN PER E MAR FLOWSHEET,
--- NOTE | 2018-11-17 10:27 | NUR ---
INCONTINENT OF SOFT STOOL, SKINCARE AND PARTIAL LINEN CHANGE COMPLETED
--- NOTE | 2018-11-17 11:00 | NUR ---
NO ACUTE CHANGE FROM PREVIOUS ASSESSMENT, VSS, ORAL CARE AND SUCTION COMPLETED, WATCHING TV, FOLLOWS COMMANDS
--- NOTE | 2018-11-17 13:00 | NUR ---
REPOSTIIONED TO BACK WITH HEELS FLOATED, DR MONTERO AT BEDSIDE FOR EVAL DECISION MADE TO TAKE PATIENT TO SURGERY ON 11/18 FOR TRACH, AND TO PLACE TUBE IN OLD SITE TO HELP WITH EXCESS LEAKAGE AT SITE
--- NOTE | 2018-11-17 14:21 | NUR ---
HOLDING VANC, TROUGH ELEVATED, MEHDI IN PHARMACY NOTIFIED, AND WILL REDOSE
--- NOTE | 2018-11-17 15:00 | NUR ---
NO AUCTE CHANGE FROM PREVIOUS ASSESSMENT. VSS, WILL CONTINUE WITH POC
--- NOTE | 2018-11-17 17:00 | NUR ---
INCONTINENT OF DIARRHEA STOOL, SKINCARE AND LINEN CHANGE COMPLETED
--- NOTE | 2018-11-17 19:30 | NUR ---
SHIFT ASSESSMENT COMPLETE, PER NURSING FLOWSHEET, PATIENT REPOSITIONED, ORAL CARE PROVIDED, NO OTHER NEEDS VOICED OR NOTED AT THIS TIME
--- NOTE | 2018-11-17 21:00 | NUR ---
PATIENT REPOSITIONED, FAMILY AT BEDSIDE, UPDATE GIVEN, NO OTHER NEEDS VOICED OR NOTED AT THIS TIME
--- NOTE | 2018-11-17 23:00 | NUR ---
RE-ASSESSMENT COMPLETE, PER NURSING FLOWSHEET, PATIENT REPOSITIONED, ORAL CARE PROVIDED, NO OTHER NEEDS COMMUNICATED OR NOTED, CONTINUE POC
[2018-11-18] VITALS (24 sets, daily range): BP systolic 106–153; BP diastolic 50–77
--- NOTE | 2018-11-18 01:00 | NUR ---
PATIENT REPOSITIONED, FAIRCHILD CARE PROVIDED, VSS, C/L IN REACH
--- NOTE | 2018-11-18 03:00 | NUR ---
RE-ASSESSMENT COMPLETE, PER NURSING FLOWSHEET, PATIENT REPOSITIONED, ORAL CARE PROVIDED, VSS, WILL CONTINUE TO MONITOR
--- NOTE | 2018-11-18 05:00 | NUR ---
PATIENT REPOSITIONED, FAMILY AT BEDSIDE, UPDATE GIVEN, ATTEMPTING TO FIND APPROXIMATE TIME OF THIS PATIENT'S PROCEDURE TODAY. CONTINUE POC
--- NOTE | 2018-11-18 07:00 | NUR ---
REC'D REPORT AND RESUMED CARE, AWAKE AND FOLLOWS COMMANDS, ETT TO VENTILATION AND SECURED, VSS, SHAKES HEAD NO RE: PAIN, ORAL CARE AND SUCTION COMPLETED, ASSESSMENT COMPLETED PER FLOWSHEET, REPOSITIONED TO LEFT SIDE WITH PILLOW PROPPED TO BACK AND HEELS FLOATED
[2018-11-18 07:25] LABS: BASOPHILS 0 % (0-2); EOSINOPHILS 0 % (0-7); HEMATOCRIT 26.8 % (36.0-48.0); HEMOGLOBIN 8.5 g/dL (12-16); IMMATURE GRANULOCYTES 0.6 % (0-5); LYMPHOCYTES 6.5 % (15-50); MCH 26.7 pg (26.0-34.0); MCHC 31.7 g/dL (31.0-37.0); MCV 84.3 fL (80.0-100.0); MEAN PLATELET VOLUME 9.6 fL (7.4-10.4); NEUTROPHILS 84.9 % (40-80); PLATELET COUNT 195 10x3/uL (130-400); RBC 3.18 10x6/uL (4.00-5.40); RDW 18.9 % (11.5-14.5); WBC 5.3 10x3/uL (4.8-10.8)
[2018-11-18 08:12] LABS: ALBUMIN 1.5 g/dL (3.4-5.0); ALKALINE PHOSPHATASE 70 U/L (46-116); BILIRUBIN - TOTAL 0.59 mg/dL (0.2-1.3); CALC OSMOLALITY 281 mosm/kg (275-300); CALCIUM 7.5 mg/dL (8.5-10.1); CARBON DIOXIDE 27.1 mmol/L (21.0-32.0); CHLORIDE - SERUM 102 mmol/L (98-107); CREATININE - SERUM 0.6 mg/dL (0.6-1.3); GLUCOSE 127 mg/dL (74-106); POTASSIUM - SERUM 3.5 mmol/L (3.5-5.1); PROTEIN - SERUM 4.9 g/dL (6.4-8.2); SODIUM 138 mmol/L (136-145); UREA NITROGEN 25 mg/dL (7-18); VANCOMYCIN - RANDOM 15.1 ug/mL (10.0-20.0); eGFR NON AFRICAN AMERICAN > 90 mL/min (90-120)
[2018-11-18 08:18] LABS: ALT (SGPT) 35 U/L (10-68)
--- NOTE | 2018-11-18 09:00 | NUR ---
MORNING MEDS GIVNE PER OCT FLOWSHEET
--- NOTE | 2018-11-18 09:35 | NUR ---
TO SURGERY SUITE VIA BED WITH HOSPITAL PERSONNEL X2, AMBU BAG AND PORTABLE MONITOR IN USE
[2018-11-18 09:57] LABS: MAGNESIUM - SERUM 2.1 mg/dL (1.8-2.4)
[2018-11-18 10:10] LABS: PHOSPHOROUS 3.1 mg/dL (2.5-4.9)
--- NOTE | 2018-11-18 10:25 | NUR ---
BACK FROM SURGERY, VS: BP 175/81, HR 145, RESP 18, O2=VIA AMBU BAG, 93%, TRACH SITE WITH SMALL AMOUNT OF BLEEDING, DRAIN SPONGE APPLIED, HOB L30 DEGREES, FRESH TRACH SIGN OVER HOB
--- NOTE | 2018-11-18 10:55 | NUR ---
SBP 220, DR PRUITT HERE FOR EVAL, NEW ORDERS GIVEN
--- NOTE | 2018-11-18 11:00 | NUR ---
CARDENE GTT INITIATED AT 5 MCG/HR, FENTANYL GTT INITIATED AT 25 MCG/HR PER ORDER
--- NOTE | 2018-11-18 11:45 | NUR ---
FAMILY AT BEDSIDE, STATUS UPDATED, VOICES NO NEEDS AT THIS TIME
--- NOTE | 2018-11-18 12:24 | NUR ---
NUTRITION F/U CHART REVIEWED. NURSING REPORTS PT NPO FOR TRACH. PULMOCARE TUBE FEEDS TO RESUME PER PEG AFTER PROCEDURE. CURRENT GOAL RATE 40 CC/HR. RD FOLLOWING
--- NOTE | 2018-11-18 12:30 | NUR ---
SBP 106, CARA PALAFOX DC'D
--- NOTE | 2018-11-18 15:00 | NUR ---
RESTING WITH NO SIGN OF DISTRESS, VSS, DENIES PAIN, ASSESSMENT COMPLETED PER FLOWSHEET, NO ACUTE CHANGE FROM PREVIOUS
--- NOTE | 2018-11-18 16:32 | MORECARE ---
CASE MANAGEMENT DISCHARGE SUMMARY PATIENT: CHON LUI UNIT: [id number] ADM DATE: 11/04/18 AGE: 68 : 50 SEX: F ROOM/BED: D.2316 AUTHOR: MONET,DOC PHYSICIAN: REFERRING PHYSICIAN: DEEPALI MONTAÑO DO DATE OF SERVICE: 11/18/18 Discharge Plan Patient Name: CHON LUI Facility: [facility]:[place] : 1950 Planned Disposition: Home with Home Health Anticipated Discharge Date: Discharge Date: Expected LOS: Initial Reviewer: [email or web address] Initial Review Date: 11/07/2018 Generated: 11/18/18 5:32 pm Comments DCP- Discharge Planning Updated by [email or web address]: Cassandra Ling on 11/18/18 3:[address] CM SPOKE WITH DAUGHTER DEBORAH REGARDING POSSIBLY LTACH PLACEMENT. DEBORAH GAVE VERBAL CONSENT FOR [facility]. CM will continue to follow and assist as needed with discharge planning / needs. DCP- Discharge Planning Updated by [id number]: Maryse Simpson on 11/07/18 2:[address] Patient Name: CHON LUI Admission Status: Elective Accout number: [id number] Admission Date: 11-04-2018 : 1950 Admission Diagnosis: Attending: DEEPALI MONTAÑO Current LOS: 3 Anticipated DC Date: Planned Disposition: Home with Home Health [facility] Discharge Planning Comments: CM met with patient to discuss discharge planning, she is alone in the room. She lives with her daughter, son in law and 3 grand children. She states she uses a walker for ambulation, otherwise is independent with her ADL's. States she can drive, but usually has her daughter or son in law take her where she needs to go. States she gives her own tube feeding with a syringe and gets her feeding supplies from [employer]. I discussed the availability of rehab, SNF, home health and DME, she states her discharge plan is to return home with [facility] health (she is current with them and has nursing and PT come out 3 times a week). CM will continue to follow and assist with discharge planning/needs. Pbx Teacher: Maryse Simpson DCPIA - Discharge Planning Initial Assessment Updated by [email or web address]: Maryse Calvin on 11/07/18 3:17 pm * Is the patient Alert and Oriented? Yes * How many steps to enter\exit or inside your home? 1/0 * PCP Dr. Montaño * Pharmacy [facility] * Preadmission Environment Home with Family * ADLs Partial Dependent * Partial ADLs (Assistance needed) Ambulation * Equipment Enteral Feeding and Supplies Nebulizer Walker * List name and contact numbers for known caregivers / representatives who currently or will assist patient after discharge: [facility] - [phone] * Verbal permission to speak to the caregivers and representatives has been obtained from the patient. Yes * Community resources currently utilized Home Health * Please name any agencies selected above. [facility] [employer] for Enteral supplies * Additional services required to return to the preadmission environment? No * Can the patient safely return to the preadmission environment? Yes * Has this patient been hospitalized within the prior 30 days at any hospital? Yes Last DP export: 11/07/18 2:28 p Patient Name: CHON LUI Page [id number] at [id number] All edits/amendments must be made on the electronic document DICTATION DATE: 11/18/181630 BILINGUAL CUSTOMER SERVICE: NAHUN 11/18/181630 RPT#: [id number] DC DATE: STATUS: ADM IN [facility] [address] [place] [address] END OF REPORT
--- NOTE | 2018-11-18 17:53 | NUR ---
KCL DRAWN BY LAB, C/O PAIN IN THROAT, FENTANYL TITRATED TO 150 MCG/3CC/HR
--- NOTE | 2018-11-18 19:30 | NUR ---
SHIFT ASSESSMENT COMPLETE, PER NURSING FLOWSHEET, PATIENT REPOSITIONED, ORAL CARE PROVIDED, C/L IN HAND
--- NOTE | 2018-11-18 21:00 | NUR ---
FAMILY AT BEDSIDE, QUESTIONS ANSWERED, UPDATE GIVEN, DR. MONTERO NOTIFIED THAT TUBE FEEDING IS LEAKING FROM OLD PEG TUBE SITE AROUND DRAIN THAT HAS BEEN PLACED, TUBE FEEDING CURRENTLY TURNED OFF, NO NEW ORDERS RECEIVED AT THIS TIME
--- NOTE | 2018-11-18 23:00 | NUR ---
RE-ASSESSMENT COMPLETE, PER NURSING FLOWSHEET, PATIENT REPOSITIONED, ORAL CARE PROVIDED, VSS
[2018-11-19] VITALS (24 sets, daily range): BP systolic 90–148; BP diastolic 45–100
--- NOTE | 2018-11-19 01:00 | NUR ---
PATIENT REPOSITIONED, FAIRCHILD CARE PROVIDED, VSS
[2018-11-19 03:53] LABS: BASOPHILS 0 % (0-2); EOSINOPHILS 0 % (0-7); HEMATOCRIT 27.3 % (36.0-48.0); HEMOGLOBIN 8.7 g/dL (12-16); IMMATURE GRANULOCYTES 0.8 % (0-5); LYMPHOCYTES 8.1 % (15-50); MCH 26.9 pg (26.0-34.0); MCHC 31.9 g/dL (31.0-37.0); MCV 84.5 fL (80.0-100.0); MEAN PLATELET VOLUME 9.1 fL (7.4-10.4); MONOCYTES 5.3 % (2-11); NEUTROPHILS 85.8 % (40-80); PLATELET COUNT 181 10x3/uL (130-400); RBC 3.23 10x6/uL (4.00-5.40); RDW 18.5 % (11.5-14.5); WBC 5.1 10x3/uL (4.8-10.8)
[2018-11-19 04:06] LABS: ALBUMIN 1.6 g/dL (3.4-5.0); ALKALINE PHOSPHATASE 66 U/L (46-116); ALT (SGPT) 29 U/L (10-68); CALC OSMOLALITY 277 mosm/kg (275-300); CALCIUM 7.9 mg/dL (8.5-10.1); CARBON DIOXIDE 27.5 mmol/L (21.0-32.0); CHLORIDE - SERUM 102 mmol/L (98-107); CREATININE - SERUM 0.5 mg/dL (0.6-1.3); GLUCOSE 113 mg/dL (74-106); MAGNESIUM - SERUM 2.1 mg/dL (1.8-2.4); PHOSPHOROUS 2.7 mg/dL (2.5-4.9); POTASSIUM - SERUM 3.9 mmol/L (3.5-5.1); PROTEIN - SERUM 5.6 g/dL (6.4-8.2); SODIUM 137 mmol/L (136-145); UREA NITROGEN 22 mg/dL (7-18); VANCOMYCIN - RANDOM 15.3 ug/mL (10.0-20.0); eGFR NON AFRICAN AMERICAN > 90 mL/min (90-120)
--- NOTE | 2018-11-19 05:00 | NUR ---
PATIENT REPOSITIONED, PARTIAL LINEN CHANGE, VSS, CONTINUE POC
--- NOTE | 2018-11-19 08:00 | NUR ---
ASSESSMENT COMPLETE - PT DENIED PAIN - CPOC
--- NOTE | 2018-11-19 08:10 | NUR ---
CALLED PHARMACY TO REQEUST VANC RX AND TO INFORM NEED VANC LABS - AWATIING DELIVERY
--- NOTE | 2018-11-19 10:45 | NUR ---
DR. GONZALEZ AT BEDSIDE FOR ASSESSMENT - ORDERED NYSTAIN AROUND OLD G TUBE - DR. FREEMAN ORDERED DOPPLER LUE - TO KEEP LUE ELEVATED - CHANGED VENT SETTING TO SMIV 12, TV 500, 3-00%, PEEP 5 PS 10 - R.T AWARE
--- NOTE | 2018-11-19 12:26 | NUR ---
PT RESTING WITH EYES CLOSED - RESPIRATIONS REG RATE AND RHYTHM - CPOC
--- NOTE | 2018-11-19 13:57 | NUR ---
AUDIENCE COORDINATOR BROUGHT UP WOUND VAC TO RN FOR PLACEMENT CPOC
--- NOTE | 2018-11-19 14:34 | NUR ---
WOUND VAC PLACED PER DR. MONTERO ORDER - CHECKED FOR LEAKS - GOOD SEAL - WILL RESTART TUBE FEEDING - CPOC
--- NOTE | 2018-11-19 15:15 | NUR ---
STARTED PULMOCARE AT 10ML/HR WITH H2O 50ML/4 HOURS - MONITOR CLOSELY AND REPORT FINING
--- NOTE | 2018-11-19 17:36 | NUR ---
FAMILY AT BEDSIDE VISITNG - ANWERED QUESTIONS TO ELENI SATISFACTION - CPOC
--- NOTE | 2018-11-19 18:00 | NUR ---
MEDICATION GIVEN - SEE MAR - PT RESTING - EAISLY AWAKENED BY TACTILE STIMULI
--- NOTE | 2018-11-19 19:30 | NUR ---
SHIFT ASSESSMENT COMPLETE, PER NURSING FLOWSHEET. PATIENT RE-POSITIONED, ORAL CARE PROVIDED, VSS
--- NOTE | 2018-11-19 19:35 | NUR ---
FAIRCHILD FLUSHED AND REPOSITIONED, IMMEDIATE 350 CC OF URINE RETURN, WILL CONTINUE TO MONITOR
--- NOTE | 2018-11-19 21:00 | NUR ---
PATIENT REPOSTIONED, WOUND VAC REMAINS PATENT. PATIENT UPDATE GIVEN TO DAUGHTER, DEBORAH, VIA TELEPHONE, CONTINUE POC
--- NOTE | 2018-11-19 23:00 | NUR ---
RE-ASSESSMENT COMPLETE, PER NURSING FLOWSHEET. PATIENT REPOSITIONED, ORAL CARE PROVIDED, NO OTHER NEEDS VOICED OR NOTED AT THIS TIME
[2018-11-20] VITALS (23 sets, daily range): BP systolic 89–161; BP diastolic 53–97
--- NOTE | 2018-11-20 01:00 | NUR ---
PATIENT REPOSITIONED, FAIRCHILD CARE PROVIDED, NO OTHER NEEDS COMMUNICATED OR NOTED AT THIS TIME.
[2018-11-20 02:44] LABS: BASOPHILS 0 % (0-2); EOSINOPHILS 0 % (0-7); HEMATOCRIT 25.8 % (36.0-48.0); HEMOGLOBIN 8.3 g/dL (12-16); IMMATURE GRANULOCYTES 0.9 % (0-5); LYMPHOCYTES 6.6 % (15-50); MCH 26.9 pg (26.0-34.0); MCHC 32.2 g/dL (31.0-37.0); MCV 83.5 fL (80.0-100.0); MEAN PLATELET VOLUME 9.3 fL (7.4-10.4); MONOCYTES 5.3 % (2-11); NEUTROPHILS 87.2 % (40-80); PLATELET COUNT 206 10x3/uL (130-400); RBC 3.09 10x6/uL (4.00-5.40); RDW 18.2 % (11.5-14.5)
[2018-11-20 02:49] LABS: WBC 6.9 10x3/uL (4.8-10.8)
[2018-11-20 02:57] LABS: CALC OSMOLALITY 274 mosm/kg (275-300); CALCIUM 7.6 mg/dL (8.5-10.1); CARBON DIOXIDE 23.8 mmol/L (21.0-32.0); CHLORIDE - SERUM 104 mmol/L (98-107); CREATININE - SERUM 0.5 mg/dL (0.6-1.3); GLUCOSE 100 mg/dL (74-106); MAGNESIUM - SERUM 1.8 mg/dL (1.8-2.4); POTASSIUM - SERUM 3.6 mmol/L (3.5-5.1); SODIUM 136 mmol/L (136-145); UREA NITROGEN 21 mg/dL (7-18); eGFR NON AFRICAN AMERICAN > 90 mL/min (90-120)
--- NOTE | 2018-11-20 03:00 | NUR ---
RE-ASSESSMENT COMPLETE, PER NURSING FLOWSHEET. PATIENT REPOSITIONED, ORAL CARE PROVIDED, CONTINUE POC
--- NOTE | 2018-11-20 04:55 | NUR ---
PATIENT REPOSITIONED, VSS, NO NEEDS COMMUNICATED OR NOTED, WILL CONTINUE TO MONITOR
--- NOTE | 2018-11-20 07:00 | NUR ---
RECEIVED PT FROM OFFGOING NURSE. PT RESTING IN BED ALERT WITH STABLE VS. VENTILATED PER TRACH PER ORDERED SETTINGS. [facility] WOUND VAC TO ABDOMEN FROM OLD PEG SITE. NO OBVIOUS DRAINAGE. TUBE FEED TO NEW PEG SITE. WILL CONTINUE TO [facility]
--- NOTE | 2018-11-20 09:00 | NUR ---
PT RESTING IN BED LIGHTLY SEDATED WITH FENTANYL AT 150MCG. INCREASED TO 200MCG PATIENT IS COMPLAINING OF PAIN AROUND OLD PEG SITE. VSS. WILL CONTINUE TO MONITOR
--- NOTE | 2018-11-20 11:00 | NUR ---
PT RESTING IN BED C CALL COBB IN REACH. VSS. PULLED UP IN BED AND TURNED TO RIGHT SIDE.WILL CONTINUE TO MONITOR
--- NOTE | 2018-11-20 13:00 | NUR ---
VSS. WILL CONTINUE TO MONITOR
--- NOTE | 2018-11-20 15:00 | NUR ---
EDEN BACK LESS THAN 10 CC RESIDUAL FROM PEG TUBE. INCREASED INFUSION RATE TO GOAL OF 40ML/HR.
--- NOTE | 2018-11-20 16:00 | NUR ---
DECREASED FENTANYL INFUSIONG BACK TO 200MCG/HR
--- NOTE | 2018-11-20 16:31 | NUR ---
CHANGED OUT PADS UNDERNEATH PATIENT, PULLED UP IN BED AND TURNED TO RIGHT SIDE. VSS.
--- NOTE | 2018-11-20 17:00 | NUR ---
PT RESTING IN BED WITH VSS. FAMILY IN ROOM VISITING WITH PATIENT
--- NOTE | 2018-11-20 19:30 | NUR ---
SHIFT ASSESSMENT COMPLETE, PER NURSING FLOWSHEET, PATIENT REPOSITIONED, ORAL ARE PROVIDED, NO OTHER NEEDS VOICED OR NOTED
--- NOTE | 2018-11-20 21:00 | NUR ---
PATIENT REPOSITIONED, VSS, NO OTHER NEEDS COMMUNICATED OR NOTED AT THIS TIME
--- NOTE | 2018-11-20 23:00 | NUR ---
RE-ASSESSMENT COMPLETE, PER NURSING FLOWSHEET, PATIENT REPOSITIONED, ORAL CARE PROVIDED, CONTINUE POC
[2018-11-21] VITALS (23 sets, daily range): BP systolic 91–180; BP diastolic 53–100
--- NOTE | 2018-11-21 01:00 | NUR ---
PATIENT REPOSITIONED, FAIRCHILD CARE PROVIDED, PATIENT RESTING, IN NO APPARENT DISTRESS, WILL CONTINUE TO MONITOR
--- NOTE | 2018-11-21 03:00 | NUR ---
RE-ASSESSMENT COMPLETE, PER NURSING FLOWSHEET, PATIENT REPOSTIONED, ORAL CARE PROVIDED, NO OTHER NEEDS COMMUNICATED OR NOTED
--- NOTE | 2018-11-21 05:00 | NUR ---
SUCTITON CANISTER TO WOUND VAC CHANGED, SECONDARY TO FAILURE TO MAINTAIN SUCTION, ISSUE RESOLVED WITH NEW CANNISTER. PATIENT REPOSITIONED, PARTIAL LINEN CHANGE
[2018-11-21 05:52] LABS: BASOPHILS 0 % (0-2); EOSINOPHILS 0 % (0-7); HEMATOCRIT 26.5 % (36.0-48.0); HEMOGLOBIN 8.6 g/dL (12-16); IMMATURE GRANULOCYTES 0.9 % (0-5); LYMPHOCYTES 1.6 % (15-50); MCH 26.9 pg (26.0-34.0); MCHC 32.5 g/dL (31.0-37.0); MCV 82.8 fL (80.0-100.0); MEAN PLATELET VOLUME 9.4 fL (7.4-10.4); MONOCYTES 2.1 % (2-11); NEUTROPHILS 95.4 % (40-80); PLATELET COUNT 214 10x3/uL (130-400); RDW 17.9 % (11.5-14.5); WBC 11.1 10x3/uL (4.8-10.8)
[2018-11-21 05:56] LABS: CALC OSMOLALITY 274 mosm/kg (275-300); CALCIUM 7.6 mg/dL (8.5-10.1); CHLORIDE - SERUM 99 mmol/L (98-107); CREATININE - SERUM 0.5 mg/dL (0.6-1.3); MAGNESIUM - SERUM 1.9 mg/dL (1.8-2.4); POTASSIUM - SERUM 3.6 mmol/L (3.5-5.1); SODIUM 134 mmol/L (136-145); UREA NITROGEN 17 mg/dL (7-18); eGFR NON AFRICAN AMERICAN > 90 mL/min (90-120)
[2018-11-21 05:59] LABS: GLUCOSE 187 mg/dL (74-106)
--- NOTE | 2018-11-21 07:00 | NUR ---
REPORT RECEIVED FROM THE OFF GOING RN. PT SEDATED ON THE VENT. PT ANSWERING YES AND NO QUSTIONS. TRACH NOTED. LEFT SUBCLAVIAN INFUSAPORT NOTED AND ACCESSED. DRESSING C/D/I. PATENT. SEE IV FLUIDS IN THE FLOW SHEET. PEG TUBE NOTED. DRESSING C/D/I WITH 75ML OF RESIDUAL NOTED. RIGHT BELOW THE PEG TUBE IS THE OLD PEG TUBE SITE HOOKED TO A WOUND VAC AT 125 HG. CLEAR GREENISH SECREATIONS NOTED. AROUND THE FOAM AND THE DRESSING IS LEAKING TUBE FEED LOOKING SECREATIONS. FC NOTED WITH CLEAR, YELLOW URINE. CALL LIGHT IN REACH. WILL CONT POC.
--- NOTE | 2018-11-21 08:30 | NUR ---
FULL BED BATH GIVEN INCLUDING LINENS CHANGE. PEG TUBE DRESSING CHANGED. TUBE FEEDINGS STILL LEAKING AROUND THE WOULD VAC. TUBE FEEDINS HELD. DR RITTER PAGED AND THE WOULD CARE NURSE PAGED.
--- NOTE | 2018-11-21 10:37 | NUR ---
DR RITTER PAGED AGAIN AND WOUND CARE NURSE PAGED AGAIN. SPOKE WITH THE WOULD CARE NURSE AND SHE WILL BE BY SOON TO LOOK AT DRESSING
--- NOTE | 2018-11-21 10:55 | NUR ---
OLD PEG TUBE SITE REMAINS TO LEAK STOMACH CONTENT. WOUND NURSE, CALLIE, AT THE PTS BEDSIDE. SHE CHANGED THE WOUND VAC DRESSING AND CLEANED THE SITE. REDDNESS NOTED TO OLD PEG TUBE SITE. WILL CONT POC.
--- NOTE | 2018-11-21 11:08 | NUR ---
DR PRUITT AT THE PTS BEDSIDE. PLAN FOR BRONCH TODAY.
--- NOTE | 2018-11-21 11:39 | NUR ---
SPOKE WITH DEBORAH BLUE, DAUGHTER, VIA TELEPHONE. EXPLAINED THAT DR PRUITT PLANS FOR BRONCH. PT'S DAUGHTER UNDERSTANDS WHAT THE PROCEDURE IS AND GIVES HER CONSENT. WITTNESSED BY SUSANNE DO. CONSENT IN THE CHART.
--- NOTE | 2018-11-21 12:01 | NUR ---
Wound vac dressing located at nonhealing PEG tube site was changed out due to drainage under the drape. Pt tolerated well.
--- NOTE | 2018-11-21 12:03 | NUR ---
DR PRUITT AT THE PTS BEDSIDE AND BRONCH PREFORMED. PT TOLERATED WELL. WILL CONT TO MONITOR.
--- NOTE | 2018-11-21 12:41 | NUR ---
NUTRITION F/U NURSING REPORTS PT TUBE FEEDS OFF 2/2 LEAKAGE AT PEG SITE. S/P TRACH. WILL PROVIDE PULMOCARE WHEN RESUMED, MONITOR TOLERANCE. RD FOLLOWING
--- NOTE | 2018-11-21 13:49 | NUR ---
DR RITTER AND JONY PABON PAGED RT OLD PEG TUBE LEAKING TUBE FEEDINGS. JONY PAGED PAGE. SHE STATED TO KEEP TUBE FEEDINS OFF AND TO KEEP OLD SITE DRY POSSIBLE. SHE WILL SPEAK WITH DR BRAVO AND STOP BY LATER. DRESSING RENFORCED. WILL CONT POC.
--- NOTE | 2018-11-21 19:04 | NUR ---
BEDSIDE SHIFT REPORT GIVEN BY DEPARTING RN. LAILA WILKS. DENIES PAIN. VOICES NO NEEDS OR CONCERNS. VENTILATED AND SLIGHTLY SEDATED ON VENT. LEFT SUBCLAVIAN PORT C,D,I. REPOSITIONED IN BED. ORAL CARE PROVIDED. F/C NOTED. SAFETY MEASURES IN PLACE. CBIR.
--- NOTE | 2018-11-21 21:51 | NUR ---
HS MEDS TAKEN WITHOUT DIFFICULTY PPT. REPOSITIONED AND ORAL CARE PROVIDED. SEE FLOWSHEET FOR DETAILS. SAFETY MEASURES IN PLACE. CBIR.
--- NOTE | 2018-11-21 23:38 | NUR ---
REASSESSMENT COMPLETE. NO CHANGES NOTED TO PT CONDITION. VSS. REPOSITIONED AND ORAL CARE PROVIDED.
[2018-11-22] VITALS (24 sets, daily range): BP systolic 81–168; BP diastolic 37–94
--- NOTE | 2018-11-22 01:29 | NUR ---
REPOSITIONED. ORAL CARE PROVIDED. TOLERATED WELL.
[2018-11-22 05:21] LABS: BASOPHILS 0 % (0-2); EOSINOPHILS 0 % (0-7); HEMATOCRIT 26.7 % (36.0-48.0); HEMOGLOBIN 8.5 g/dL (12-16); IMMATURE GRANULOCYTES 0.6 % (0-5); LYMPHOCYTES 2.9 % (15-50); MCH 27.1 pg (26.0-34.0); MCHC 31.8 g/dL (31.0-37.0); MEAN PLATELET VOLUME 9.8 fL (7.4-10.4); MONOCYTES 1.1 % (2-11); NEUTROPHILS 95.4 % (40-80); PLATELET COUNT 263 10x3/uL (130-400); RBC 3.14 10x6/uL (4.00-5.40); RDW 18.1 % (11.5-14.5); WBC 10.8 10x3/uL (4.8-10.8)
[2018-11-22 06:00] LABS: CALC OSMOLALITY 269 mosm/kg (275-300); CALCIUM 7.8 mg/dL (8.5-10.1); CARBON DIOXIDE 30.3 mmol/L (21.0-32.0); CHLORIDE - SERUM 99 mmol/L (98-107); CREATININE - SERUM 0.4 mg/dL (0.6-1.3); GLUCOSE 154 mg/dL (74-106); POTASSIUM - SERUM 3.9 mmol/L (3.5-5.1); SODIUM 133 mmol/L (136-145); UREA NITROGEN 14 mg/dL (7-18); eGFR NON AFRICAN AMERICAN > 90 mL/min (90-120)
[2018-11-22 15:14] LABS: AFB SPECIMEN PROCESSING Concentration (())
--- NOTE | 2018-11-22 19:07 | NUR ---
BEDSIDE SHIFT REPORT GIVEN BY DEPARTING RN. BRETT. AAOX4. FOLLOWS COMMANDS. TRACH VENT ON RESTRAINTS. SEDATED YET FOLLOWS COMMANDS. F/C, LEFT SUBCLAVIAN CHEST PORT, AND TRACH VENT SETTINGS NOTED. SAFETY MEASURES IN PLACE. CBIR.
--- NOTE | 2018-11-22 19:27 | NUR ---
0700 AWAKES TO VOICE REPOSITION IN BED ASSESSMENT COMPLETE
--- NOTE | 2018-11-22 19:28 | NUR ---
0900 ORAL CARE WITH DARK DRAINAGE NOTED
--- NOTE | 2018-11-22 19:28 | NUR ---
1100 CONT WITH FENTANYL TUB ATTENDANT INCUSIOIN ORAL CARE PROVIDED
--- NOTE | 2018-11-22 19:29 | NUR ---
1300 DR RITTER AT BEDSIDE UPDATE PROVIDED TO FAMILY MEMBER
--- NOTE | 2018-11-22 19:29 | NUR ---
WOUND VAC LEAKING D/C WOUND VAC DRESSING APPLIED TO ABDOMINAL INCISION
--- NOTE | 2018-11-22 19:31 | NUR ---
1700 DR RITTER AWARE OF DARK DRAINAGE FROM MOUTH AFTER ORAL CARE PLANNING OR SURGERY [place] AFTERNOON. PLAN IS TO TRANSFER TO [facility] IN [place] ON FRIDAY 11/24
--- NOTE | 2018-11-22 21:36 | NUR ---
HS MEDS GIVEN. PO MEDS CRUSHED AND ADMINISTERED PPT. TOLERATED WELL. REPOSITIONED FOR COMFORT.
--- NOTE | 2018-11-22 23:56 | NUR ---
REASSESSMENT COMPLETE. NO CHANGES NOTED. REPOSITIONED IN BED. LINENS CHANGED. ORAL CARE PROVIDED. SHAVON CARE COMPLETE.
[2018-11-23] VITALS (25 sets, daily range): BP systolic 113–174; BP diastolic 56–100
--- NOTE | 2018-11-23 01:17 | NUR ---
LAYING IN BED ASLEEP. IV TUBING CHANGED PER PROTOCOL. REPOSITIONED IN BED. ORAL CARE PROVIDED. DARK RED MATTER REMAINS IN PT MOUTH.
--- NOTE | 2018-11-23 03:56 | NUR ---
REASSESSMENT COMPLETE. NO CHANGES NOTED IN PT CONDITION. ASLEEP SHOWING NO SS OF DISTRESS. REPOSITIONED. ORAL CARE PROVIDED.
[2018-11-23 04:58] LABS: CALC OSMOLALITY 270 mosm/kg (275-300); CALCIUM 7.9 mg/dL (8.5-10.1); CARBON DIOXIDE 31.2 mmol/L (21.0-32.0); CHLORIDE - SERUM 99 mmol/L (98-107); CREATININE - SERUM 0.5 mg/dL (0.6-1.3); GLUCOSE 162 mg/dL (74-106); POTASSIUM - SERUM 3.9 mmol/L (3.5-5.1); SODIUM 133 mmol/L (136-145); UREA NITROGEN 14 mg/dL (7-18); eGFR NON AFRICAN AMERICAN > 90 mL/min (90-120)
[2018-11-23 05:25] LABS: BASOPHILS 0 % (0-2); EOSINOPHILS 0 % (0-7); HEMATOCRIT 25.2 % (36.0-48.0); HEMOGLOBIN 8.4 g/dL (12-16); IMMATURE GRANULOCYTES 0.6 % (0-5); LYMPHOCYTES 2.7 % (15-50); MCH 28.1 pg (26.0-34.0); MCHC 33.3 g/dL (31.0-37.0); MCV 84.3 fL (80.0-100.0); MEAN PLATELET VOLUME 9.2 fL (7.4-10.4); MONOCYTES 1.6 % (2-11); NEUTROPHILS 95.1 % (40-80); PLATELET COUNT 246 10x3/uL (130-400); RBC 2.99 10x6/uL (4.00-5.40)
[2018-11-23 05:52] LABS: WBC 7.7 10x3/uL (4.8-10.8)
--- NOTE | 2018-11-23 07:15 | NUR ---
SHIFT ASSESSMENT COMPLETE, PT IS SEDATED ON VENT, FOLLOWS COMMANDS, CHLORHEXADINE BATH GIVEN, REPOSITIONE FOR COMFORT, ALL PPP, VSS, WILL CON'T TO MONITOR
--- NOTE | 2018-11-23 10:32 | NUR ---
[facility] IN [place] CALLED "SUNDAY" PHONE NUMBER [phone]. REGARDING PATIENT TRANSFERED. INFORMED IT WOULD BE WEDNESDAY MORNING BEFORE WOULD BE READY FOR TRANSFERE
--- NOTE | 2018-11-23 10:57 | NUR ---
REPOSITIONED ON RIGHT SIDE. BILATERAL LUNG SOUNDS EQUAL. DARK BROWN SECRETIONS FROM TRACH AND ORALLY. FAIRCHILD CATH PATENT. HEAD OF BED ELEVATED 30 DEGREES. PEG CLAMPED NPO FOR SURGERY TODAY. LEFT PORT INFUSING WITH PROCALAMINE AT 75 ML LHOUR. NS KVO. FENTANYL AT 75 MG HOUR. STILL AWAKE AND OBEYING COMMANDS. SCD ON LOWER LEGS.
--- NOTE | 2018-11-23 11:30 | NUR ---
extremely anxious, blood pressure elevated. dr. sanchez here orders received for ativan 1 mg iv now. meds given. and effective.
--- NOTE | 2018-11-23 13:00 | NUR ---
resting well no distress. repositioned.
--- NOTE | 2018-11-23 13:09 | NUR ---
NUTRITION F/U VENT/TRACH. PROCALAMINE AT 75 CC/HR. TUBE FEEDS OFF FOR PROCEDURE. WILL RESUME TUBE FEEDS WHEN APPROPRIATE. RD FOLLOWING
[2018-11-23 13:17] LABS: ACID FAST SMEAR Negative (()); FUNGUS STAIN Final report (())
--- NOTE | 2018-11-23 15:00 | NUR ---
eaton cath leaking all over bed. new eaton inserted in document management technician. patient tolerated well no distress. immediate return clear pale yellow urine. abd soft no distress. dressing left abd below peg dry and intact
--- NOTE | 2018-11-23 17:00 | NUR ---
resting well daughter here. consent for bronch obtained.no questions repositioned. monitor sr. no distress
--- NOTE | 2018-11-23 18:03 | NUR ---
to or per bed. family at bedside.
--- NOTE | 2018-11-23 19:30 | NUR ---
REC'D FROM O.R. VIA BED TO 2316. PT REMAINS SEDATED, ICU MONITORS ON, VSS. TO MECH VIA TRACH, PER R.T. CONT IVFS PER MD ORDERS TO L CHEST INFUSAPORT, DSG C/D/I. CONT B/L SOFT WRIST RESTRAINTS PER MD ORDERS. PEG CLAMPED. L ABD INCISION WITH WOUND VAC C/D/I - TO SXN, LIGHT BLOODY DRAINAGE NOTED. ALARMS ON AND C/L IN REACH.
--- NOTE | 2018-11-23 20:30 | NUR ---
FAMILY AT BS, PT WAKING UP, ORIENTED TO SITUATION BY NURSE. WILL TITRATE FENTANYL GTT FOR EFFECT PER MD ORDERS.
--- NOTE | 2018-11-23 22:00 | NUR ---
PT RESTING QUIETLY, NO SIGN OF DISTRESS. VSS.
--- NOTE | 2018-11-23 23:00 | NUR ---
REASSESSMENT PER FLOWSHEET. NO ACUTE CHANGES. BED PAD DAMP WITH URINE, SHAVON-CARE AND PAD CHANGE DONE. CLEAR, YELLOW URINE NOTED IN FAIRCHILD TUBING - PATENT. WILL CONT CLOSE MONITORING. CONT Q2H TURNING AND ORAL CARE.
[2018-11-24] VITALS (24 sets, daily range): BP systolic 100–176; BP diastolic 48–95
--- NOTE | 2018-11-24 01:05 | NUR ---
REPOSITIONED UP IN BED, ORAL CARE PROVIDED, PT RESISTANT AT TIMES, REORIENTED TO SITUATION, NO SIGN OF DISTRESS.
--- NOTE | 2018-11-24 03:00 | NUR ---
REASSESSMENT PER FLOWSHEET, NO ACUTE CHANGES, NO SIGN OF DISTRESS. UP IN BED TO R SIDE WITH PILLOWS. ORAL CARE DONE. ALARMS ON.
[2018-11-24 04:30] LABS: HEMATOCRIT 22.3 % (36.0-48.0); MCHC 31.8 g/dL (31.0-37.0); MCV 84.8 fL (80.0-100.0); MEAN PLATELET VOLUME 9.1 fL (7.4-10.4); PLATELET COUNT 246 10x3/uL (130-400); RBC 2.63 10x6/uL (4.00-5.40); RDW 18.3 % (11.5-14.5)
[2018-11-24 04:35] LABS: WBC 11.9 10x3/uL (4.8-10.8)
[2018-11-24 04:36] LABS: HEMOGLOBIN 7.1 g/dL (12-16)
[2018-11-24 04:41] LABS: CALC OSMOLALITY 279 mosm/kg (275-300); CALCIUM 7.4 mg/dL (8.5-10.1); CHLORIDE - SERUM 103 mmol/L (98-107); CREATININE - SERUM 0.5 mg/dL (0.6-1.3); GLUCOSE 146 mg/dL (74-106); POTASSIUM - SERUM 4.2 mmol/L (3.5-5.1); SODIUM 138 mmol/L (136-145); UREA NITROGEN 14 mg/dL (7-18); eGFR NON AFRICAN AMERICAN > 90 mL/min (90-120)
--- NOTE | 2018-11-24 05:00 | NUR ---
COMPLETE BATH AND LINEN CHANGE DONE.
[2018-11-24 05:04] LABS: LYMPHOCYTES 2 % (15-50); MONOCYTES 1 % (2-11); NEUTROPHILS 96 % (40-80); PLATELET ESTIMATE NORMAL
--- NOTE | 2018-11-24 06:00 | NUR ---
DR. RITTER PAGED RE: JC ASHTON.
--- NOTE | 2018-11-24 06:25 | NUR ---
NEW PIV SITED TO R WRIST X 1 STICK, GOOD BLOOD RETURN.
--- NOTE | 2018-11-24 06:31 | NUR ---
DR. RITTER NOTIFIED OF AM LAB, NEW ORDER REC'D.
--- NOTE | 2018-11-24 07:30 | NUR ---
AWAKES TO STIMULATION. SLOW TO RESPOND. BARRELY OPENS EYES. SKIN WARM AND DRY. LEFT INFUSAPORT INFUSING WITH PROCALAMINE AT 75 ML HOUR. NS KVO. FENTANYL 150 MG/HOUR. WOUND LEFT ABD DRESSING COMPRESSED SCANT AMOUNT OF BLOODY DRAINAGE. PEG DRESSING DRY AND INTACT. PEG CLAMPED. FAIRCHILD CATH PATENT. SCD ON LOWER LEGS. HEAD OF BED ELEVATED [address] TRACH INTACT NO BLEEDING OR DRAINAGE AT TRACH SITE. TO VENT. HEELS ELEVATED ON PILLOWS.
--- NOTE | 2018-11-24 09:00 | NUR ---
FIRST UNIT OF BLOOD INFUSING. NO REACTION. FENTANYL DECREASED TO 100 MG HOUR. TO ALLOW PATIENT TO WAKE UP. ON CPAP PER VENT TOLERATING WELL AT THIS TIME. PULSE OX GREATER THAN 95% RESP RATE BELOW 20. NO DISTRESS.
--- NOTE | 2018-11-24 11:00 | NUR ---
REPOSITIONED. FENTANYL DECREASED TO 50 MG HOUR. PATIENT STILL SLOW TO RESPOND AND WAKE UP. RETURNS TO SLEEP EASILY.
[2018-11-24 12:16] LABS: FUNGUS MYCOLOGY CULTURE Preliminary report (())
--- NOTE | 2018-11-24 13:00 | NUR ---
2 ND UNIT OF BLOOD INFUSING WITHOUT REACTION. FENTANYL OFF PER DR. PRUITT, MAY RESTART IF NEEDED. REPOSITIONED. BLOODY ORAL SECRETIONS NOTED.
--- NOTE | 2018-11-24 15:00 | NUR ---
BLOOD COMPLETE. REPOSITIONED MORE AWAKE AND RESPONSIVE. DAUGHTER NOTIFIED THAT PATIENT WILL NOT BEING GOING TO [facility] TODAY. MAYBE TOMORROW IF LAB STABLE. OK TO RESTART TUBE FEEDING
--- NOTE | 2018-11-24 17:00 | NUR ---
REPOSITIONED. FRESH PAD APPLIED. AWAKES EASILY . NODES HEAD TO YES AND NO QUESTIONS. TRIES TO TALK. DENIES PAIN. TUBE FEEDING STARTED PULMOCARE AT 20 ML HOUR. NO DISTRESS. TOLERATED FAIR.
--- NOTE | 2018-11-24 19:45 | NUR ---
REC'D TO CARE,, OCEAN EXPORT AGENT PER FLOWSHEET. PT ON VENT VIA TRACH. PT OPENS EYES AND FOLLOWS SIMPLE COMMANDS, AGITATED AT TIMES. WILL TITRATE FENTANYL GTT PER ORDERS. CM - ST. ROM DONE, CONT B/L SOFT WRIST RESTRAINTS PER MD ORDERS - SEE FLOWSHEET. TF INFUSING TO PEG, DSG C/D/I - SEE FLOWSHEET. FEET WARM, 1+ EDEMA NOTED, HEELS BRIDGED. SMALL AMT REDNESS TO COCCYX NOTED, WILL CONT Q2H TURN AND ORAL CARE. ALARMS ON , PT IN SIGHT OF NURSE STATION.
--- NOTE | 2018-11-24 21:15 | NUR ---
FAMILY AT BS, PT AWAKE, UPDATE GIVEN.
--- NOTE | 2018-11-24 23:30 | NUR ---
REASSESSMENT PER FLOWSHEET, NO ACUTE CHANGES. FENTANYL GTT AT 100MCG/HR PER MD ORDERS, NO SIGN OF DISTRESS.
[2018-11-25] VITALS (9 sets, daily range): BP systolic 140–168; BP diastolic 63–91
--- NOTE | 2018-11-25 01:00 | NUR ---
PT REPOSITIONED UP IN BED, ORAL CARE DONE AND ROM DONE.
--- NOTE | 2018-11-25 03:00 | NUR ---
COMPLETE BATH AND LINEN CHANGE DONE. SHAVON-CARE, FAIRCHILD CARE DONE. LOTION TO DRY SKIN. REASSESSMENT PER FLOWSHEET, NO ACUTE CHANGES.
[2018-11-25 03:32] LABS: BASOPHILS 0 % (0-2); EOSINOPHILS 0.4 % (0-7); HEMOGLOBIN 11.7 g/dL (12-16); IMMATURE GRANULOCYTES 1.7 % (0-5); LYMPHOCYTES 1.8 % (15-50); MCHC 33.2 g/dL (31.0-37.0); MCV 84.2 fL (80.0-100.0); MEAN PLATELET VOLUME 9.2 fL (7.4-10.4); MONOCYTES 2.3 % (2-11); NEUTROPHILS 93.8 % (40-80); PLATELET COUNT 197 10x3/uL (130-400); RBC 4.18 10x6/uL (4.00-5.40); RDW 16.6 % (11.5-14.5); WBC 9.4 10x3/uL (4.8-10.8)
[2018-11-25 03:33] LABS: HEMATOCRIT 35.2 % (36.0-48.0)
[2018-11-25 03:46] LABS: ALKALINE PHOSPHATASE 108 U/L (46-116); ALT (SGPT) 22 U/L (10-68); CALC OSMOLALITY 276 mosm/kg (275-300); CALCIUM 7.8 mg/dL (8.5-10.1); CARBON DIOXIDE 24.7 mmol/L (21.0-32.0); CHLORIDE - SERUM 99 mmol/L (98-107); CREATININE - SERUM 0.5 mg/dL (0.6-1.3); PROTEIN - SERUM 6.8 g/dL (6.4-8.2); SODIUM 134 mmol/L (136-145); UREA NITROGEN 17 mg/dL (7-18); eGFR NON AFRICAN AMERICAN > 90 mL/min (90-120)
[2018-11-25 03:47] LABS: GLUCOSE 225 mg/dL (74-106)
--- NOTE | 2018-11-25 07:00 | NUR ---
REC'D REPORT AND RESUMED CARE, VENT TO TRACH AND SECURED, 40% FIO2, SAT 98%, OPENS EYES TO SPEECH, DOES NOT FOLLOW COMMANDS, VSS, ASSESSMENT COMPLETE PER FLOWSHEET, REPOSITIONED TO LEFT SIDE WITH PILLOW PROPPED TO BACK AND HEELS FLOATED
--- NOTE | 2018-11-25 08:30 | NUR ---
MORNING MEDS GIVEN PER MAR FLOWSHEET, TF OFF, FLUSHED, AND CLAMPED FOR PENDING TRAVEL TO [facility],
--- NOTE | 2018-11-25 11:11 | NUR ---
Wound vac tubing clamped off and disconnected for transfer to [facility].
--- NOTE | 2018-11-25 11:29 | NUR ---
DISCHARGED WITH [facility], EMT'S, VIA STRETCHER, VSS, AWAKE AND ALERT,
--- NOTE | 2018-11-25 12:03 | MORECARE ---
CASE MANAGEMENT DISCHARGE SUMMARY PATIENT: CHON LUI UNIT: [id number] ADM DATE: 11/04/18 AGE: 68 : 50 SEX: F ROOM/BED: D.2316 AUTHOR: MONET,DOC PHYSICIAN: REFERRING PHYSICIAN: DEEPALI MONTAÑO DO DATE OF SERVICE: 11/25/18 Discharge Plan Patient Name: CHON LUI Facility: [facility]:[place] : 1950 Planned Disposition: [facility] Anticipated Discharge Date: Discharge Date: 11/25/2018 Expected LOS: Initial Reviewer: [email or web address] Initial Review Date: 11/07/2018 Generated: 11/25/18 1:03 pm Comments DCP- Discharge Planning Updated by [email or web address]: Cassandra Ling on 11/25/18 11:[address] LATE ENTRY - 11/22/17 @ 1730 CM SPOKE WITH SUNDAY AT [facility] IN [place]. SHE CAME TO EVAULATE PATIENT AND SPOKE WITH FAMILY. PLAN FOR PATIENT TO TRANSFER TO [facility] ON OR WEDNESDAY THIS WEEK. 11/24/18 - [facility] HAS RECEIVED AUTH FROM INSURANCE AND APPROVED PATIENT. DR. SARKAR DID P2P WITH PHYSICIAN. DR. MELISSA IS ACCEPTING MD. PATIENT RECIEVING BLOOD TODAY WILL PLAN DISCHARGE IN AM IF H&H IS STABLE. 11/25/18 - CM SPOKE WITH EMRE AT [facility] INFORMED OF H&H, NURSING TO CALL REPORT, [facility] NOTIFIED OF TRANSFER, NURSING FAXED UPDATED OCT. DCP- Discharge Planning Updated by [email or web address]: Cassandra Ling on 11/18/18 3:[address] CM SPOKE WITH DAUGHTER DEBORAH REGARDING POSSIBLY [facility] PLACEMENT. DEBORAH GAVE VERBAL CONSENT FOR 1ST CHOICE [facility] 2ND [facility]. CM will continue to follow and assist as needed with discharge planning / needs. DCP- Discharge Planning Updated by [id number]: Maryse Simpson on 11/07/18 2:[address] Patient Name: CHON LUI Admission Status: Elective Accout number: [id number] Admission Date: 11-04-2018 : 1950 Admission Diagnosis: Attending: DEEPALI MONTAÑO Current LOS: 3 Anticipated DC Date: Planned Disposition: Home with Home Health Primary Insurance: [email or web address] Discharge Planning Comments: CM met with patient to discuss discharge planning, she is alone in the room. She lives with her daughter, son in law and 3 grand children. She states she uses a walker for ambulation, otherwise is independent with her ADL's. States she can drive, but usually has her daughter or son in law take her where she needs to go. States she gives her own tube feeding with a syringe and gets her feeding supplies from [employer]. I discussed the availability of rehab, SNF, home health and DME, she states her discharge plan is to return home with [facility] (she is current with them and has nursing and PT come out 3 times a week). CM will continue to follow and assist with discharge planning/needs. Chief Talent Officer: Maryse Calvin DCPIA - Discharge Planning Initial Assessment Updated by [email or web address]: Maryse Simpson on 11/07/18 3:17 pm * Is the patient Alert and Oriented? Yes * How many steps to enter\exit or inside your home? 1/0 * PCP Dr. Montaño * Pharmacy [facility] * Preadmission Environment Home with Family * ADLs Partial Dependent * Partial ADLs (Assistance needed) Ambulation * Equipment Enteral Feeding and Supplies Nebulizer Walker * List name and contact numbers for known caregivers / representatives who currently or will assist patient after discharge: Deborah Gaffney - DTR - [phone] * Verbal permission to speak to the caregivers and representatives has been obtained from the patient. Yes * Community resources currently utilized Home Health * Please name any agencies selected above. [facility] [employer] for Enteral supplies * Additional services required to return to the preadmission environment? No * Can the patient safely return to the preadmission environment? Yes * Has this patient been hospitalized within the prior 30 days at any hospital? Yes Last DP export: 11/18/18 3:32 pm Patient Name: CHON LUI Page [id number] at 1203 All edits/amendments must be made on the electronic document DICTATION DATE: 11/25/18 120 FLAT CUTTER: NAHUN 11/25/181201 RPT#: [id number] DC DATE:11/25/18 STATUS: DIS IN [facility] [address] [place] [address] END OF REPORT
[2018-11-25 13:16] LABS: FUNGUS STAIN Final report (())
[2018-11-25 18:08] LABS: ACID FAST SMEAR Negative (()); AFB SPECIMEN PROCESSING Concentration (())
[2018-11-26 18:07] LABS: FUNGUS CULTURE RESULT 1 Candida parapsilosis (())
== END 2018-11-25 11:36 | disposition short-term general hospital (02) | DRG 3 ==
LOC: D.MS 16:21 → D.ICU 16:21 → D.MS 16:45 → D.ICU 11-08 10:12
PROVIDERS: Emergency Medicine; Family Medicine; Internal Medicine Nephrology; Internal Medicine Pulmonary Disease; Surgery; ADMIT Family Medicine; ATTEND Family Medicine
PROC: 0BH17EZ Insertion of Endotracheal Airway into Trachea, Via Natural or Artificial Opening (ICD-10-PCS; 2018-11-08)
PROC: 06HY33Z Insertion of Infusion Device into Lower Vein, Percutaneous Approach (ICD-10-PCS; 2018-11-08)
PROC: 5A1935Z Respiratory Ventilation, Less than 24 Consecutive Hours (ICD-10-PCS; principal; 2018-11-08 08:45)
PROC: 5A1945Z Respiratory Ventilation, 24-96 Consecutive Hours (ICD-10-PCS; 2018-11-09)
PROC: 0BH17EZ Insertion of Endotracheal Airway into Trachea, Via Natural or Artificial Opening (ICD-10-PCS; 2018-11-09)
PROC: 0DW63UZ Revision of Feeding Device in Stomach, Percutaneous Approach (ICD-10-PCS; 2018-11-09 10:45)
PROC: 5A1955Z Respiratory Ventilation, Greater than 96 Consecutive Hours (ICD-10-PCS; 2018-11-16)
PROC: 0BH17EZ Insertion of Endotracheal Airway into Trachea, Via Natural or Artificial Opening (ICD-10-PCS; 2018-11-16)
PROC: 0B113F4 Bypass Trachea to Cutaneous with Tracheostomy Device, Percutaneous Approach (ICD-10-PCS; 2018-11-18)
PROC: 0DH63UZ Insertion of Feeding Device into Stomach, Percutaneous Approach (ICD-10-PCS; 2018-11-18)
PROC: 0B968ZZ Drainage of Right Lower Lobe Bronchus, Via Natural or Artificial Opening Endoscopic (ICD-10-PCS; 2018-11-21)
PROC: 0B948ZZ Drainage of Right Upper Lobe Bronchus, Via Natural or Artificial Opening Endoscopic (ICD-10-PCS; 2018-11-21)
PROC: 0B958ZZ Drainage of Right Middle Lobe Bronchus, Via Natural or Artificial Opening Endoscopic (ICD-10-PCS; 2018-11-21)
PROC: 0B938ZZ Drainage of Right Main Bronchus, Via Natural or Artificial Opening Endoscopic (ICD-10-PCS; 2018-11-21)
DX: T85.848A Pain due to other internal prosthetic devices, implants and grafts, initial encounter (principal); E43 Unspecified severe protein-calorie malnutrition; I46.9 Cardiac arrest, cause unspecified; K72.00 Acute and subacute hepatic failure without coma; J96.21 Acute and chronic respiratory failure with hypoxia; J18.9 Pneumonia, unspecified organism; J44.1 Chronic obstructive pulmonary disease with (acute) exacerbation; G72.81 Critical illness myopathy; K94.29 Other complications of gastrostomy; Z85.89 Personal history of malignant neoplasm of other organs and systems; Z85.118 Personal history of other malignant neoplasm of bronchus and lung; I10 Essential (primary) hypertension; D64.9 Anemia, unspecified; Z68.20 Body mass index [BMI] 20.0-20.9, adult; E87.8 Other disorders of electrolyte and fluid balance, not elsewhere classified; R00.0 Tachycardia, unspecified; R47.02 Dysphasia; Y95 Nosocomial condition

== ENCOUNTER 2019-02-16 17:05 | Inpatient (IN) | payer OTHER ==
[~2019-02-16] VITALS: Ht 160 cm; Wt 49.9 kg
[~2019-02-16 17:05] MED LIST: ASPIRIN EC81 M1 PEG; HYDROCODON-ACE1 EAC2 PO; HYDROCODON-ACET15 ML PO; IPRAT-ALBUT 0.5-3 ML UPD; LIPITOR20 MG PO; LOPRESSOR25 MG PO; PLAVIX75 MG PO; SYNTHROID75 MCG PO
[2019-02-16 17:48] LABS: HEMATOCRIT 23.4 % (36.0-48.0); MCH 26.1 pg (26.0-34.0); MCHC 31.6 g/dL (31.0-37.0); MCV 82.4 fL (80.0-100.0); MEAN PLATELET VOLUME 7.7 fL (7.4-10.4); RBC 2.84 10x6/uL (4.00-5.40); RDW 16.7 % (11.5-14.5); WBC 13.6 10x3/uL (4.8-10.8)
[2019-02-16 17:55] LABS: HEMOGLOBIN 7.4 g/dL (12-16); PLATELET COUNT 361 10x3/uL (130-400)
[2019-02-16 18:16] LABS: ALBUMIN 1.9 g/dL (3.4-5.0); ALKALINE PHOSPHATASE 78 U/L (46-116); ALT (SGPT) 15 U/L (10-68); BILIRUBIN - TOTAL 0.39 mg/dL (0.2-1.3); CALC OSMOLALITY 264 mosm/kg (275-300); CALCIUM 8.8 mg/dL (8.5-10.1); CARBON DIOXIDE 29.7 mmol/L (21.0-32.0); CHLORIDE - SERUM 94 mmol/L (98-107); CREATININE - SERUM 0.6 mg/dL (0.6-1.3); POTASSIUM - SERUM 3.5 mmol/L (3.5-5.1); PROTEIN - SERUM 7.4 g/dL (6.4-8.2); SODIUM 131 mmol/L (136-145); UREA NITROGEN 17 mg/dL (7-18); eGFR NON AFRICAN AMERICAN > 90 mL/min (90-120)
[2019-02-16 18:18] LABS: GLUCOSE 107 mg/dL (74-106)
[2019-02-16 18:24] LABS: PRO BNP 1752 pg/mL (0-125)
[2019-02-16 18:39] LABS: EOSINOPHILS 2 % (0-7); LYMPHOCYTES 20 % (15-50); MONOCYTES 1 % (2-11); NEUTROPHILS 74 % (40-80); PLATELET ESTIMATE NORMAL
[2019-02-16 19:05] LABS: APTT 27.6 SECONDS (22.8-39.4); INR 1.23 (0.85-1.17); PROTIME 14.9 SECONDS (11.6-15.0)
[2019-02-16 19:20] LABS: CKMB 1.9 U/L (0.0-3.6); CREATINE KINASE 12 UL (21-215); TROPONIN-I < 0.017 ng/mL (0.000-0.060)
--- NOTE | 2019-02-16 20:15 | NUR ---
RECIEVED TRANSFER REPORT FROM [facility]. PT ARRIVED UNIT IN BED, AAOX2, NO S/S OF DISTRESS NOTED. INFUSAPORT PATENT. CEFTRIAXONE INFUSING ON ARRIVAL. AZITHROMYCIN ORDERED TO BE GIVEN @ 1800 BUT NOT GIVEN IN THE E.R. WILL INFUSE WHEN CEFTRIAXONE IS COMPLETED. TRACH NOTED, APPEARS INTACT, PT ABLE TO COMMUNICATE WITH TRACH. PEG TUBE INTACT, PT STATE SHE HAS NOT HAD ANY FEEDING ALL DAY. WILL NOTIFY [facility] OF PT'S TRACH, AND PEG TUBE. 1 UNIT OF BLOOD ORDERED BY E.R DOCTOR. WILL TRANFUSE WHEN ATBX THERAPY IS COMPLETED. PT CURRENTLY RESTING IN BED. FAMILY @BEDSIDE. WILL CPOC. CL WITHIN REACH, BED IN LOW, SR UP X2.
--- NOTE | 2019-02-16 20:30 | NUR ---
[facility] ORDERED A TRACH SUCTION. NOTIFIED RT. RT IN PT'S ROOM AT THIS TIME. AN ADDITIONAL 1 UNIT OF BLOOD ORDERED BY [facility] TO MAKE IT A TOTAL OF 2UNIT TO BE INFUSED. JEVITY 1.2 GHULAM/ 24OML ALSO OREDERED @35MLS/HR. AZITHROMYCIN INFUSING AT THIS TIME. WILL CPOC. CL WITHIN REACH.
--- NOTE | 2019-02-16 22:11 | NUR ---
RT PLACED PT ON 4L NC. PT 02SAT 96 AT THIS TIME. NO S/S OF DISTRESS.
[2019-02-16 22:50] LABS: THYROID STIMULATING HORMONE 2.53 uIU/mL (0.36-3.74)
[2019-02-16 22:51] LABS: % SATURATION 4 % (15-55); IRON 10 ug/dl (35-150); TOTAL IRON BIND CAPACITY 216 ug/dl (260-445); UNSAT IRON BIND CAPACITY 206 ug/dl (150-375)
--- NOTE | 2019-02-16 23:20 | NUR ---
FIRST UNIT OF PRBC'S INFUSING AT THIS TIME INITIAL VS, T. 99, P.90, RR 18, BP 116/53. PT LAYING IN BED WITH EYES CLOSE. NO S/S OF DISTRESS NOTED. FAMILY AT BEDSIDE. ADMISSION ASSESSMENT COMPLETED. DAUGHTER STATES SHE WILL BRING IN THE FULL LIST OF PT'S MEDICATION IN THE AM. JEVITY INFUSING @ 35MLS/HR. WILL CTM. CL IN REACH, BED IN LOW, SR UP X2.
[2019-02-16] MEDS ORDERED: CELEXA20 MG PEG (23:28)
[2019-02-16 23:31] VITALS: BP 116/53; BMI 19.5
--- NOTE | 2019-02-17 02:50 | NUR ---
SECOND UNIT OF PRBC INFUSING INITIAL VSS. NO S/S DISTRESS. RR EVEN AND UNLABORED. PT RESTING IN BED WITH EYES CLOSE. WILL CTM. CL WITHIN REACH.
--- NOTE | 2019-02-17 06:23 | NUR ---
SECOND UNIT OF PRBC COMPLETED. VSS. AAOX4, NO S/S OF RESP. DISTRESS. CLEANED PT UP AND PROVIDED FRESH LINEN. PT VOICED THANKS. SUPERVISOR SILVERING DEPARTMENT IN PT ROOM AT THIS TIME. WILL CPOC. CL WITHIN REACH.
[2019-02-17 07:22] LABS: ALBUMIN 1.9 g/dL (3.4-5.0); ALKALINE PHOSPHATASE 85 U/L (46-116); ALT (SGPT) 15 U/L (10-68); BILIRUBIN - TOTAL 0.66 mg/dL (0.2-1.3); CALC OSMOLALITY 275 mosm/kg (275-300); CALCIUM 9.2 mg/dL (8.5-10.1); CARBON DIOXIDE 27.3 mmol/L (21.0-32.0); CHLORIDE - SERUM 98 mmol/L (98-107); CREATININE - SERUM 0.6 mg/dL (0.6-1.3); GLUCOSE 230 mg/dL (74-106); PROTEIN - SERUM 7.7 g/dL (6.4-8.2); SODIUM 134 mmol/L (136-145); UREA NITROGEN 16 mg/dL (7-18); eGFR NON AFRICAN AMERICAN > 90 mL/min (90-120)
[2019-02-17 07:27] LABS: BASOPHILS 0 % (0-2); EOSINOPHILS 0 % (0-7); IMMATURE GRANULOCYTES 0.2 % (0-5); LYMPHOCYTES 11.6 % (15-50); MCH 27.8 pg (26.0-34.0); MCHC 33.2 g/dL (31.0-37.0); MCV 83.7 fL (80.0-100.0); MEAN PLATELET VOLUME 8.3 fL (7.4-10.4); MONOCYTES 2.1 % (2-11); NEUTROPHILS 86.1 % (40-80); PLATELET COUNT 350 10x3/uL (130-400); RDW 15.4 % (11.5-14.5)
[2019-02-17 07:31] LABS: HEMATOCRIT 34.3 % (36.0-48.0); HEMOGLOBIN 11.4 g/dL (12-16); WBC 5.8 10x3/uL (4.8-10.8)
[2019-02-17] MEDS ORDERED: OMEPRAZOLE20 M1 PEG (09:52)
[2019-02-17] MEDS ORDERED: TRAZODONE HCL150 MG PEG (09:53)
[2019-02-17] MEDS ORDERED: FLOMAX0.4 MG PEG (09:54)
[2019-02-17] MEDS ORDERED: CYCLOBENZAPRINE5 MG PEG (09:54)
--- NOTE | 2019-02-17 09:56 | NUR ---
ENTERED MORE HOME MEDICATIONS PER DAUGHTER ON MED REC AT THIS TIME.
[2019-02-17 13:01] VITALS: BP 140/65
[2019-02-17 13:53] VITALS: Ht 160 cm; Wt 49.9 kg
--- NOTE | 2019-02-17 14:35 | NUR ---
PT RESTING IN BED. TF ADJUSTED TO MEET DIETARY ORDERS. PT DENIES NEEDS. WCTM.
[2019-02-17 15:11] VITALS: BP 146/70
--- NOTE | 2019-02-17 16:52 | NUR ---
PT ASSISTED TO BEDSIDE COMMODE. ATTEMPTED TO GET UA OR STOOL SAMPLE. PT HAD MIXED SPECIMEN IN HAT. WILL ATTEMPT AGAIN LATER.
[2019-02-17 20:00] VITALS: BP 137/70
[2019-02-18] VITALS: BP 130/73
--- NOTE | 2019-02-18 01:45 | NUR ---
Assessed patient at beginning of shift. Patient is alert and oriented. She has PEG Tube infusing with feeding as per orders. Trach care was performed during previous shift by Respiratory. Patient has port located at left side of chest, patent with IV fluids and antibiotics infusing as ordered. She is nonambulatory due to weakness.
[2019-02-18 02:27] LABS: COLOR YELLOW (YELLOW)
[2019-02-18 02:28] LABS: APPEARANCE HAZY (CLEAR); BILIRUBIN NEGATIVE (NEGATIVE); GLUCOSE 250 mg/dL (NEGATIVE); KETONE NEGATIVE (NEGATIVE); NITRITE NEGATIVE (NEGATIVE); PROTEIN NEGATIVE (NEGATIVE); SPECIFIC GRAVITY 1.015 (1.005-1.020); UROBILINOGEN NORMAL (NORMAL)
[2019-02-18 04:00] VITALS: BP 147/68
[2019-02-18 07:02] LABS: BASOPHILS 0 % (0-2); EOSINOPHILS 0 % (0-7); HEMATOCRIT 32.8 % (36.0-48.0); HEMOGLOBIN 10.7 g/dL (12-16); IMMATURE GRANULOCYTES 0.4 % (0-5); LYMPHOCYTES 10.1 % (15-50); MCH 27.5 pg (26.0-34.0); MCHC 32.6 g/dL (31.0-37.0); MCV 84.3 fL (80.0-100.0); MEAN PLATELET VOLUME 8.1 fL (7.4-10.4); MONOCYTES 3.7 % (2-11); NEUTROPHILS 85.8 % (40-80); PLATELET COUNT 331 10x3/uL (130-400); RBC 3.89 10x6/uL (4.00-5.40); RDW 15.7 % (11.5-14.5)
[2019-02-18 07:05] LABS: WBC 7.5 10x3/uL (4.8-10.8)
[2019-02-18 07:16] LABS: ALBUMIN 1.8 g/dL (3.4-5.0); ALKALINE PHOSPHATASE 90 U/L (46-116); ALT (SGPT) 26 U/L (10-68); BILIRUBIN - TOTAL 0.29 mg/dL (0.2-1.3); CALC OSMOLALITY 277 mosm/kg (275-300); CALCIUM 8.8 mg/dL (8.5-10.1); CARBON DIOXIDE 27.8 mmol/L (21.0-32.0); CHLORIDE - SERUM 101 mmol/L (98-107); CREATININE - SERUM 0.6 mg/dL (0.6-1.3); GLUCOSE 187 mg/dL (74-106); MAGNESIUM - SERUM 1.9 mg/dL (1.8-2.4); POTASSIUM - SERUM 3.8 mmol/L (3.5-5.1); PROTEIN - SERUM 7.2 g/dL (6.4-8.2); SODIUM 135 mmol/L (136-145); UREA NITROGEN 21 mg/dL (7-18); eGFR NON AFRICAN AMERICAN > 90 mL/min (90-120)
[2019-02-18 08:05] VITALS: BP 110/50
--- NOTE | 2019-02-18 08:30 | NUR ---
PT RESTING WITH EYES CLOSED. NO ACUTE DISTRESS NOTED AT THIS TIME. TRACH INTACT WITH TALKING CAP IN PLACE. PORT TO LEFT CHEST ACCESSED WITH NS @ 75ML/HR INFUSING VIA PUMP. SITE WITHOUT REDNESS OR EDEMA. PEG TUBE INTACT WITH JEVITY 1.2 GHULAM INFUSING AT 45ML/HR PER PUMP, NO RESIDUAL NOTED AT THIS TIME. DENIES FURTHER NEEDS AT THIS TIME. CL WITHIN REACH. ENCOURAGED TO CALL WITH NEEDS. CONTINUE POC
--- NOTE | 2019-02-18 10:50 | NUR ---
PT HAD INCONTINENT SPELL. PROVIDED SHAVON CARE AT THIS TIME.
[2019-02-18 17:17] VITALS: BP 130/70
[2019-02-18 18:44] VITALS: BP 112/58
--- NOTE | 2019-02-18 19:25 | NUR ---
RECIEVED BEDSIDE REPORT. ROUNDS COMPLETED. VSS, AAOX4, NO S/S OF DISTRESS. RR EVEN AND UNLABORED. PIV INTACT WITH NS INFUSING @ 75MLS/HR. PEG-TUBE TO INTACT. FEEDING 1.2CAL JEVITY, 10CC'S FROM RESIDUAL. TRACH SITE C/D/I. ENCOURAGE PT TO USE THE CALL LIGHT WHENEVER SHE NEEDS HELP. DENIES ANY FURTHER NEEDS AT THIS TIME. WILL CPOC. CALL WITHIN REACH, BED IN LOW, SR UP X2.
--- NOTE | 2019-02-18 20:32 | NUR ---
PT REFUSED SOLU-MEDROL STATES MEDICATION MAKES HER SHAKY.
[2019-02-19 00:10] VITALS: BP 137/83
--- NOTE | 2019-02-19 03:47 | NUR ---
PT HAD ONE EPISODE OF INCONTINENT BLADDER. CLEAN PT SHAVON-AREA, AND HELP PT PUT ON A DEPEND. PROVIDED FRESH LINEN. PT VOICEDN THANKS. RESIDUAL OF PEG-TUBE FEEDING 20CC'S. WILL CONTINUE FEEDING. CL WITHIN REACH, BED IN LOW, SR UP X2.
[2019-02-19 04:00] VITALS: BP 145/73
--- NOTE | 2019-02-19 04:50 | NUR ---
RT IN PT ROOM AT THIS TIME PERFORMING TRACH SUCTION.
[2019-02-19 06:32] LABS: BASOPHILS 0 % (0-2); EOSINOPHILS 0 % (0-7); HEMATOCRIT 35.4 % (36.0-48.0); HEMOGLOBIN 11.6 g/dL (12-16); IMMATURE GRANULOCYTES 0.5 % (0-5); MCHC 32.8 g/dL (31.0-37.0); MCV 85.3 fL (80.0-100.0); MEAN PLATELET VOLUME 8.2 fL (7.4-10.4); MONOCYTES 7.3 % (2-11); NEUTROPHILS 73.2 % (40-80); PLATELET COUNT 303 10x3/uL (130-400); RBC 4.15 10x6/uL (4.00-5.40); WBC 8.5 10x3/uL (4.8-10.8)
[2019-02-19 07:07] LABS: ALBUMIN 1.9 g/dL (3.4-5.0); ALKALINE PHOSPHATASE 97 U/L (46-116); ALT (SGPT) 27 U/L (10-68); BILIRUBIN - TOTAL 0.27 mg/dL (0.2-1.3); CALC OSMOLALITY 269 mosm/kg (275-300); CALCIUM 8.6 mg/dL (8.5-10.1); CARBON DIOXIDE 29.8 mmol/L (21.0-32.0); CHLORIDE - SERUM 99 mmol/L (98-107); CREATININE - SERUM 0.5 mg/dL (0.6-1.3); GLUCOSE 121 mg/dL (74-106); MAGNESIUM - SERUM 1.8 mg/dL (1.8-2.4); POTASSIUM - SERUM 3.4 mmol/L (3.5-5.1); PROTEIN - SERUM 6.9 g/dL (6.4-8.2); SODIUM 134 mmol/L (136-145); UREA NITROGEN 16 mg/dL (7-18); VANCOMYCIN - TROUGH 16.3 ug/mL (10.0-20.0); eGFR NON AFRICAN AMERICAN > 90 mL/min (90-120)
[2019-02-19 07:30] VITALS: BP 156/78
--- NOTE | 2019-02-19 10:48 | EC ---
PATIENT:CHON LUI DATE OF SERVICE: 02/16/19 SEX: F MEDICAL RECORD: [id number] DATE OF : [birth year] LOCATION:D.M3 D.120 AGE OF PATIENT: 68 ADMISSION DATE: 02/16/19 REFERRING PHYSICIAN: INTERPRETING PHYSICIAN: BRICE CASTELLANOS MD ECHOCARDIOGRAM REPORT ECHO CHARGES 4 ECHO COMPLETE Date: 02/17/19 CLINICAL DIAGNOSIS: CHF ECHOCARDIOGRAPHIC MEASUREMENTS (adult normal given) AC root (d.<3.7cm) 3.1 cm LV Septum d (<1.2 cm> 0.9 cm Valve Excursion 1.8 cm LV Septum (systole) 1.3 cm Left Atria (s.<4.0cm> 2.2 cm LVPW d(<1.2cm) 0.9 cm RV (d.<2.3cm) 2.4 cm LVPW (sytole) 1.3 cm LV diastole(<5.6CM) 4.7 cm MV E-F(>70mm/sec) cm LV systole 3.7 cm LVOT Diameter 1.5 cm MV exc.(>10mm) cm Est.ejection fraction (50-75%) % DOPPLER: LVIT cm/sec A 140 cm/sec E 128 cm/sec LA cm/sec RVSP 25.1 mmHg LVOT 123 cm/sec AOP1/2T m/s Asc. Ao 170 cm/sec RVOT 60 cm/sec RA cm/sec PA 79 cm/sec AV Gradient Peak 11.5 mmHg AV Mean 4.3 mmHg AV Area 1.5 cm MV Gradient Peak 10.1 mmHg MV Mean 6.6 mmHg MV Area cm COMMENTS: Oil Well Cable Tool Driller: Junaid DICKINSON Bartender Server: 3 Dr. Charles TAPE# PACS Pericardial Effusion N DATE OF SERVICE: Adequate 2-D, color-flow and spectral Doppler, and M-mode. No LVH. LV internal dimensions are normal. LV is mildly globally hypo with LV function mildly reduced. Estimated EF 40% to 45%. Aortic valve is tricuspid. No evidence of stenosis by Doppler interrogation. Left atrium normal at 3.2 cm. Mitral valve shows no prolapse. Mild MR. Right-sided chambers are grossly normal. Trace TR. ECHOCARDIOGRAM REPORT [id number] CHON LUI TRANSINT:[id number] Voice Confirmation ID: [id number] DOCUMENT ID: [id number] BRICE CASTELLANOS MD at 1048 CC: [id number] DICTATION DATE: 02/18/19 1029 SOCIAL WORK PROGRAM COORDINATOR: 02/18/19 1306 ADM IN [facility] [address] [id number]
[2019-02-19 11:30] VITALS: BP 148/76
[2019-02-19 15:49] VITALS: BP 134/77
--- NOTE | 2019-02-19 19:29 | NUR ---
PATIENT RESTING IN BED WITH NO S/S OF DISTRESS AND DENIES NEEDS AT THIS TIME. BED IN LOWEST POSITION AND CALL LIGHT WITHIN REACH. ENCOURAGED THE PATIENT TO CALL IF SHE HAS NEEDS. WILL CONTINUE TO MONITOR.
[2019-02-20 06:18] LABS: BASOPHILS 0 % (0-2); EOSINOPHILS 0.2 % (0-7); HEMATOCRIT 40.8 % (36.0-48.0); HEMOGLOBIN 13.1 g/dL (12-16); IMMATURE GRANULOCYTES 1.4 % (0-5); LYMPHOCYTES 20.8 % (15-50); MCH 27.8 pg (26.0-34.0); MCHC 32.1 g/dL (31.0-37.0); MCV 86.4 fL (80.0-100.0); MEAN PLATELET VOLUME 8.1 fL (7.4-10.4); MONOCYTES 10.3 % (2-11); NEUTROPHILS 67.3 % (40-80); PLATELET COUNT 338 10x3/uL (130-400); RBC 4.72 10x6/uL (4.00-5.40); RDW 15.8 % (11.5-14.5)
[2019-02-20 06:25] LABS: WBC 6.3 10x3/uL (4.8-10.8)
[2019-02-20 06:43] LABS: ALBUMIN 2.1 g/dL (3.4-5.0); ALKALINE PHOSPHATASE 107 U/L (46-116); ALT (SGPT) 33 U/L (10-68); BILIRUBIN - TOTAL 0.22 mg/dL (0.2-1.3); CALC OSMOLALITY 267 mosm/kg (275-300); CARBON DIOXIDE 30.5 mmol/L (21.0-32.0); CHLORIDE - SERUM 98 mmol/L (98-107); CREATININE - SERUM 0.4 mg/dL (0.6-1.3); GLUCOSE 132 mg/dL (74-106); POTASSIUM - SERUM 4.2 mmol/L (3.5-5.1); PROTEIN - SERUM 7.3 g/dL (6.4-8.2); SODIUM 133 mmol/L (136-145); UREA NITROGEN 13 mg/dL (7-18); eGFR NON AFRICAN AMERICAN > 90 mL/min (90-120)
[2019-02-20 08:00] VITALS: BP 121/76
--- NOTE | 2019-02-20 08:00 | NUR ---
PATIENT LYING IN BED WITH EYES CLOSED. NO DISTRESS NOTED AT THIS TIME. TRACH CAPPED OFF FOR TALKING. IV INFUSAPORT IN USE WITH NS @ 75 CC/HR. JEVITY 1.2 GHULAM RUNNING VIA PUMP AT 45 CC/HR. AND FLUSSH AT 10 CC/HR. NO RESIDUAL. CONTINUE TO MONITOR.
--- NOTE | 2019-02-20 13:10 | NUR ---
Nutrition follow-up: Pt NPO Jevity 1.2 mary infusing @ 45 ml/hr via PEG tube with 20 ml H2O flsuh Q hour Labs reviewed Wt: 109# Pt tolerating TF; up to chair and breathing better. RDN following.
--- NOTE | 2019-02-20 15:34 | MORECARE ---
CASE MANAGEMENT DISCHARGE SUMMARY PATIENT: CHON LUI UNIT: [id number] ADM DATE: 02/16/19 AGE: 68 : 50 SEX: F ROOM/BED: D.1205 AUTHOR: NATALIA HEALY PHYSICIAN: REFERRING PHYSICIAN: MARY KAY SARKAR MD DATE OF SERVICE: 02/20/19 Discharge Plan Patient Name: CHON LUI Facility: [facility]:[place] : 1950 Planned Disposition: Home with Home Health Anticipated Discharge Date: 02/20/19 Discharge Date: Expected LOS: 4 Initial Reviewer: [email or web address] Initial Review Date: 02/16/2019 Generated: 02/20/19 4:34 pm DCPIA - Discharge Planning Initial Assessment Updated by [email or web address]: Daria Acuna on 02/20/19 3:32 pm * Is the patient Alert and Oriented? Yes * PCP DR MONTAÑO * Pharmacy [facility] * Preadmission Environment Home with Family * ADLs Partial Dependent * Partial ADLs (Assistance needed) Ambulation Bathing Dressing Medication Management Toileting * Equipment Bedside Commode Enteral Feeding and Supplies Hospital Bed Oxygen Rolling Walker Wheelchair * Other Equipment [facility] PROVIDES DME * List name and contact numbers for known caregivers / representatives who currently or will assist patient after discharge: DEBORAH WALDEN- [phone] * Verbal permission to speak to the caregivers and representatives has been obtained from the patient. Yes * Community resources currently utilized Home Health * Please name any agencies selected above. [facility] * Additional services required to return to the preadmission environment? Yes * Can the patient safely return to the preadmission environment? Yes * Has this patient been hospitalized within the prior 30 days at any hospital? Yes Patient Name: CHON LUI Page 68569 at 1534 All edits/amendments must be made on the electronic document DICTATION DATE: 02/20/19 1534 PET CARE ATTENDANT: NAHUN 02/20/19 1534 RPT#: [id number] DC DATE: STATUS: ADM IN [facility] [address] [place] [address] END OF REPORT
--- NOTE | 2019-02-20 15:55 | MORECARE ---
CASE MANAGEMENT DISCHARGE SUMMARY PATIENT: CHON LUI UNIT: [id number] ADM DATE: 02/16/19 AGE: 68 : 50 SEX: F ROOM/BED: D.1205 AUTHOR: MONET,DOC PHYSICIAN: REFERRING PHYSICIAN: MARY KAY SARKAR MD DATE OF SERVICE: 02/20/19 Discharge Plan Patient Name: CHON LUI Facility: [facility]:[place] : 1950 Planned Disposition: Home with Home Health Anticipated Discharge Date: 02/20/19 Discharge Date: Expected LOS: 4 Initial Reviewer: [id number] Initial Review Date: 02/16/2019 Generated: 02/20/19 4:54 pm Comments DCP- Discharge Planning Updated by [email or web address]: Daria Acuna on 02/20/19 2:[address] LATE ENTRY 1300 CM MET WITH THE PATIENT AND HER DAUGHTER IN THE PATIENT'S ROOM. CM EXPLAINED MY ROLE AND ASK PERMISSION TO PROCEED W/ ASSESSMENT. PATIENT WAS REPORTEDLY JUST DISCHARGED FROM [facility] IN [place] 3 DAYS PRIOR TO ADMISSION AT [facility]. THE PATIENT STAYS WITH HER DAUGHTER AND THE DAUGHTER'S FAMILY. SHE IS ACTIVELY ON SERVICE W/ [facility] FOR [facility] AND PHYSICAL THERAPY. PCP- DR MONTAÑO [facility] TUBE FEEDINGS- [facility] [place] HAD QUESTIONS ABOUT OUTPATIENT PHYSICAL THERAPY VS HOME HEALTH PT. SHE WORRIES THAT THE PATIENT PROGRESS WELL W/ H/H PHYSICAL THERAPY. SHE ALSO DISCUSSED HER MOTHER'S TUBE FEEDINGS IE CONTINOUS VS BOLUS. SHE ALSO HAD QUESTIONS REGARDING ELIGIBILTY FOR TRANSPORTATION. CM EXPLAINED DISCHARGE IMM TO PATIENT AND DTR. PATIENT ASK THE DAUGHTER TO SIGN. SIGNATURE OBTAINED. PATIENT CHOICE FORM FOR HOME HEALTH ALSO OBTAINED. CM CALLED THE DIETITIAN TO SPEAK WITH THE PATIENT AND FAMILY ABOUT THE TUBE FEEDING. CM CALLED [facility] TO ADVISE THE PATIENT MAY BE DISCHARGED TODAY. CM SHARED ALL OF THE DAUGHTER'S CONCERNS NOTED ABOVE. CM FAXED CLINICAL. HAD NO DISCHARGE ORDERS OR DISCHARGE SUMMARY. CM WILL CALL [facility] REGARDING TUBE FEEDING AND PUMP/ POLE. DCPIA - Discharge Planning Initial Assessment Updated by [email or web address]: Daria Acuna on 02/20/19 3:32 pm * Is the patient Alert and Oriented? Yes * PCP DR MONTAÑO * Pharmacy [facility] [place] * Preadmission Environment Home with Family * ADLs Partial Dependent * Partial ADLs (Assistance needed) Ambulation Bathing Dressing Medication Management Toileting * Equipment Bedside Commode Enteral Feeding and Supplies Hospital Bed Oxygen Rolling Walker Wheelchair * Other Equipment [facility] [place] PROVIDES DME * List name and contact numbers for known caregivers / representatives who currently or will assist patient after discharge: DEBORAH WALDEN- [phone] * Verbal permission to speak to the caregivers and representatives has been obtained from the patient. Yes * Community resources currently utilized Home Health * Please name any agencies selected above. [facility] * Additional services required to return to the preadmission environment? Yes * Can the patient safely return to the preadmission environment? Yes * Has this patient been hospitalized within the prior 30 days at any hospital? Yes Last DP export: 02/20/19 2:34 pm Patient Name: CHON LUI Page [id number] at 1555 All edits/amendments must be made on the electronic document DICTATION DATE: 02/20/191553 BIOMED TECH: NAHUN 02/20/191553 RPT#: [id number] DC DATE: STATUS: ADM IN [facility] [address] [place] [address] END OF REPORT
[2019-02-20 16:00] VITALS: BP 113/47
[2019-02-20] MEDS ORDERED: PREDNISONE10 MG PO (16:17)
--- NOTE | 2019-02-20 16:25 | NUR ---
DR. GÓMEZ CALLED BACK FOR ANTIBIOTICS ORALLY FOR DISCHARGE. AUGMENTIN 750 MG PO ONE TWICE A DAY X 5 DAYS.
[2019-02-20] MEDS ORDERED: AUGMENTIN 875-11 TAB PO (16:30)
--- NOTE | 2019-02-20 16:30 | NUR ---
BETTINA COOL NOTIFIED OF ANTIOBIOTIC: AUGMENTIN 750 MG PO ONE TWICE A DAY. X 5 DAYS.
--- NOTE | 2019-02-20 16:39 | MORECARE ---
CASE MANAGEMENT DISCHARGE SUMMARY PATIENT: CHON LUI UNIT: [id number] ADM DATE: 02/16/19 AGE: 68 : 50 SEX: F ROOM/BED: D.1205 AUTHOR: MONET,DOC PHYSICIAN: REFERRING PHYSICIAN: MARY KAY SARKAR MD DATE OF SERVICE: 02/20/19 Discharge Plan Patient Name: CHON LUI Facility: [facility]:[place] : 1950 Planned Disposition: Home with Home Health Anticipated Discharge Date: 02/20/19 Discharge Date: Expected LOS: 4 Initial Reviewer: [email or web address] Initial Review Date: 02/16/2019 Generated: 02/20/19 5:38 pm Comments DCP- Discharge Planning Updated by [email or web address]: Daria Acuna on 02/20/19 3:[address] TC TO [facility]. SPOKE WITH BETHEL. SHE STATED THE PATIENT HAD NOT BEEN WITH THEM SINCE OCTOBER. SHE WAS BEING TRANSFERED TO A FACILITY IN [place]. CM EXPLAINED THE PATIENT WAS DISCHARGED 02/13/19. THEY DID NOT GET A REFERRAL. TC TO [employer] [facility]. SPOKE W/ THE PATIENT'S NURSE. SHE HAD CONTACTED DR MONTAÑO'S OFFICE REGARDING TUBE FEEDING ORDERS. TC TO DR MONTAÑO'S OFFICE. SPOKE WITH HIS NURSE REGARDING FEEDING ISSUE. PROVIDED HER WITH THE CONTACT NUMBER [phone] AND CONTACT NAME, BETHEL, FOR [facility]. CM ALSO ADVISED HER WHY THE PATIENT HAD MISSED HER 02/17/19 APPOINTMENT. DCP- Discharge Planning Updated by [email or web address]: Daria Acuna on 02/20/19 2:[address] LATE ENTRY 1300 CM MET WITH THE PATIENT AND HER DAUGHTER IN THE PATIENT'S ROOM. CM EXPLAINED MY ROLE AND ASK PERMISSION TO PROCEED W/ ASSESSMENT. PATIENT WAS REPORTEDLY JUST DISCHARGED FROM LT[facility] IN [place] 3 DAYS PRIOR TO ADMISSION AT [facility]. THE PATIENT STAYS WITH HER DAUGHTER AND THE DAUGHTER'S FAMILY. SHE IS ACTIVELY ON SERVICE W/ [employer] [facility] FOR [facility] AND PHYSICAL THERAPY. PCP- DR MONTAÑO PHARMACY- [facility] DME- [facility] TUBE FEEDINGS- [facility] IN [place] HAD QUESTIONS ABOUT OUTPATIENT PHYSICAL THERAPY VS HOME HEALTH PT. SHE WORRIES THAT THE PATIENT PROGRESS WELL W/ H/H PHYSICAL THERAPY. SHE ALSO DISCUSSED HER MOTHER'S TUBE FEEDINGS IE CONTINOUS VS BOLUS. SHE ALSO HAD QUESTIONS REGARDING ELIGIBILTY FOR TRANSPORTATION. CM EXPLAINED DISCHARGE IMM TO PATIENT AND DTR. PATIENT ASK THE DAUGHTER TO SIGN. SIGNATURE OBTAINED. PATIENT CHOICE FORM FOR HOME HEALTH ALSO OBTAINED. CM CALLED THE DIETITIAN TO SPEAK WITH THE PATIENT AND FAMILY ABOUT THE TUBE FEEDING. CM CALLED [facility] TO ADVISE THE PATIENT MAY BE DISCHARGED TODAY. CM SHARED ALL OF THE DAUGHTER'S CONCERNS NOTED ABOVE. CM FAXED CLINICAL. HAD NO DISCHARGE ORDERS OR DISCHARGE SUMMARY. CM WILL CALL [facility] REGARDING TUBE FEEDING AND PUMP/ POLE. DCPIA - Discharge Planning Initial Assessment Updated by [email or web address]: Daria Aucna on 02/20/19 3:32 pm * Is the patient Alert and Oriented? Yes * PCP DR MONTAÑO * Pharmacy [facility] [place] * Preadmission Environment Home with Family * ADLs Partial Dependent * Partial ADLs (Assistance needed) Ambulation Bathing Dressing Medication Management Toileting * Equipment Bedside Commode Enteral Feeding and Supplies Hospital Bed Oxygen Rolling Walker Wheelchair * Other Equipment [facility] [place] PROVIDES DME * List name and contact numbers for known caregivers / representatives who currently or will assist patient after discharge: DEBORAH BLUE- DAUGHTER- [phone] * Verbal permission to speak to the caregivers and representatives has been obtained from the patient. Yes * Community resources currently utilized Home Health * Please name any agencies selected above. [email or web address] [facility] * Additional services required to return to the preadmission environment? Yes * Can the patient safely return to the preadmission environment? Yes * Has this patient been hospitalized within the prior 30 days at any hospital? Yes Last DP export: 02/20/19 2:54 pm Patient Name: CHON LUI Page 11870 at 1639 All edits/amendments must be made on the electronic document DICTATION DATE: 02/20/191637 CARDIOLOGY FELLOW: NAHUN 02/20/191637 RPT#: [id number] DC DATE: STATUS: ADM IN [facility] [address] [place] [address] END OF REPORT
--- NOTE | 2019-02-20 19:18 | NUR ---
RECIEVED REPORT FROM DAY SHIFT. PT RESTING IN BED NO S/S OF DISTRESS, FAMILY AT BEDSIDE. DENIES ANY OTHER NEEDS AT THIS TIME. BED IN LOWEST POSTION, SIDERAILS X2, CALL LIGHT WITHIN REACH. WILL CONTINUE TO MONITOR.
[2019-02-20 20:40] VITALS: BP 126/64
--- NOTE | 2019-02-20 23:00 | NUR ---
ASSISTED PT IN USING BEDPAN. NO S/S OF DISTRESS. DENIES OTHER NEEDS AT THIS TIME. WILL CONTINUE TO MONITOR.
--- NOTE | 2019-02-21 01:03 | NUR ---
PT RESTING IN BED SUPINE WITH EYES CLOSED, BREATHING EVEN AND UNLABORED. NO S/S OF DISTRESS. ASSISTED PT ON AND OFF OF BED GR. READJUSTED PT IN BED. VITAL SIGNS ARE STABLE. DENIES OTHER NEEDS AT THIS TIME. WILL CONTINUE TO MONITOR.
[2019-02-21 01:08] VITALS: BP 156/82
--- NOTE | 2019-02-21 02:41 | NUR ---
CHANGED PT FEEDING BAGS, INITIAL, TIME AND DATE ON BAG. ADDED 2 CONTAINERS OF JEVITY 1.2. TOELRATED PROCEDURE WELL. DENIES OTHER NEEDS AT THIS TIME. WILL CONTINUE TO MONITOR.
--- NOTE | 2019-02-21 03:27 | NUR ---
I have reviewed this patient and I concur with the Shift Assessment completed by the Licensed Practical Nurse today this shift.
--- NOTE | 2019-02-21 03:45 | NUR ---
PT RESTING SUPINE IN BED WITH EYES CLOSED, BREATHING EVEN AND UNLABORED. NO S/S OF DISTRESS. BED IN LOWEST POSITION, SIDERAILS X2, CALL LIGHT WITHIN REACH. WILL CONTINUE TO MONITOR.
[2019-02-21 04:39] VITALS: BP 125/60
--- NOTE | 2019-02-21 04:50 | NUR ---
ASSISTED PT ON AND OFF OF BEDPAN, CHANGED SOILED SHEETS. NO S/S OF DISTRESS. DENIES OTHER NEEDS AT THIS TIME. CALL LIGHT WITHIN REACH, BED RAILS X2. WILL CONTINUE TO MONITOR.
--- NOTE | 2019-02-21 06:09 | NUR ---
PT RESTING SUPINE IN BED WITH EYES CLOSED, BREATHING EVEN AND UNLABORED. NO S/S OF DISTRESS. BED IN LOWEST POSITION, BEDRAILS X2, CALL LIGHT WITHIN REACH. WILL CONTINUE TO MONITOR.
[2019-02-21 07:12] LABS: BASOPHILS 0.1 % (0-2); EOSINOPHILS 1.4 % (0-7); HEMATOCRIT 40.4 % (36.0-48.0); HEMOGLOBIN 12.9 g/dL (12-16); IMMATURE GRANULOCYTES 3.1 % (0-5); LYMPHOCYTES 17.9 % (15-50); MCH 27.9 pg (26.0-34.0); MCHC 31.9 g/dL (31.0-37.0); MCV 87.3 fL (80.0-100.0); MONOCYTES 8.2 % (2-11); NEUTROPHILS 69.3 % (40-80); PLATELET COUNT 323 10x3/uL (130-400); RBC 4.63 10x6/uL (4.00-5.40); RDW 16.3 % (11.5-14.5); WBC 8.4 10x3/uL (4.8-10.8)
[2019-02-21 07:24] LABS: ALBUMIN 1.9 g/dL (3.4-5.0); ALKALINE PHOSPHATASE 110 U/L (46-116); ALT (SGPT) 27 U/L (10-68); BILIRUBIN - TOTAL 0.26 mg/dL (0.2-1.3); CALC OSMOLALITY 266 mosm/kg (275-300); CALCIUM 8.5 mg/dL (8.5-10.1); CHLORIDE - SERUM 101 mmol/L (98-107); CREATININE - SERUM 0.5 mg/dL (0.6-1.3); GLUCOSE 101 mg/dL (74-106); MAGNESIUM - SERUM 1.9 mg/dL (1.8-2.4); POTASSIUM - SERUM 4.5 mmol/L (3.5-5.1); PROTEIN - SERUM 6.4 g/dL (6.4-8.2); SODIUM 133 mmol/L (136-145); UREA NITROGEN 14 mg/dL (7-18); eGFR NON AFRICAN AMERICAN > 90 mL/min (90-120)
--- NOTE | 2019-02-21 07:41 | NUR ---
PT IN BED USING BREATHING TREATMENT. AXO. RR EVEN AND UNLABORED. NO DISTRESS NOTED. WILL CONTINUE TO MONITOR.
[2019-02-21 08:00] VITALS: BP 124/57
--- NOTE | 2019-02-21 08:50 | MORECARE ---
CASE MANAGEMENT DISCHARGE SUMMARY PATIENT: CHON LUI UNIT: [id number] ADM DATE: 02/16/19 AGE: 68 : 50 SEX: F ROOM/BED: D.1205 AUTHOR: MONET,DOC PHYSICIAN: REFERRING PHYSICIAN: MARY KAY SARKAR MD DATE OF SERVICE: 02/21/19 Discharge Plan Patient Name: CHON LUI Facility: [facility]:[place] : 1950 Planned Disposition: Home with Home Health Anticipated Discharge Date: 02/20/19 Discharge Date: Expected LOS: 4 Initial Reviewer: [email or web address] Initial Review Date: 02/16/2019 Generated: 02/21/19 9:49 am Comments DCP- Discharge Planning Updated by [email or web address]: Daria Acuna on 02/21/19 7:[address] PATIENT REMAINS IN HOUSE THIS AM. NO ADDITIONAL MD NOTE FROM DISCHARGE NOTE NOR ANY NURSING DOCUMENTATION REGARDING 02/20/19 DISCHARGE. TC TO DIETITIAN REGARDING DISCHARGE TUBE FEEDING INSTRUCTIONS . SHE STATED THE PATIENT HAD BEEN ON BOLUS FEEDINGD PRIOR TO ADMISSION 9 CANS / DAILY PER THE FAMILY. SHE FELT THIS WAS TOO MUCH FOR THIS PATIENT. PATIENT WAS PLACED ON CONTINOUS FEEDINGS AT [facility] AT 45 ML/ HR WITH H2O 20 ML FLUSHES AND HR. TC TO [facility] INFORMATION DEPT FOR COPY OF PATIENT'S DISCHARGE INSTRUCTIONS AND D/C MED LIST. DCP- Discharge Planning Updated by [email or web address]: Daria Acuna on 02/20/19 3:[address] TC TO [facility]. SPOKE WITH BETHEL. SHE STATED THE PATIENT HAD NOT BEEN WITH THEM SINCE OCTOBER. SHE WAS BEING TRANSFERED TO A FACILITY IN [place]. CM EXPLAINED THE PATIENT WAS DISCHARGED 02/13/19. THEY DID NOT GET A REFERRAL. TC TO [facility]. SPOKE W/ THE PATIENT'S NURSE. SHE HAD CONTACTED DR MONTAÑO'S OFFICE REGARDING TUBE FEEDING ORDERS. TC TO DR MONTAÑO'S OFFICE. SPOKE WITH HIS NURSE REGARDING FEEDING ISSUE. PROVIDED HER WITH THE CONTACT NUMBER [phone] AND CONTACT NAME, BETHEL, FOR [facility]. CM ALSO ADVISED HER WHY THE PATIENT HAD MISSED HER 02/17/19 APPOINTMENT. DCP- Discharge Planning Updated by [email or web address]: Daria Acuna on 02/20/19 2:[address] LATE ENTRY 1300 CM MET WITH THE PATIENT AND HER DAUGHTER IN THE PATIENT'S ROOM. CM EXPLAINED MY ROLE AND ASK PERMISSION TO PROCEED W/ ASSESSMENT. PATIENT WAS REPORTEDLY JUST DISCHARGED FROM LT[facility] IN [place] 3 DAYS PRIOR TO ADMISSION AT [facility]. THE PATIENT STAYS WITH HER DAUGHTER AND THE DAUGHTER'S FAMILY. SHE IS ACTIVELY ON SERVICE W/ [employer] [facility] FOR RESIDENTIAL AND PHYSICAL THERAPY. PCP- DR MONTAÑO PHARMACY- [facility] DME- [facility] TUBE FEEDINGS- [facility] IN [place] D[place] HAD QUESTIONS ABOUT OUTPATIENT PHYSICAL THERAPY VS HOME HEALTH PT. SHE WORRIES THAT THE PATIENT PROGRESS WELL W/ H/H PHYSICAL THERAPY. SHE ALSO DISCUSSED HER MOTHER'S TUBE FEEDINGS IE CONTINOUS VS BOLUS. SHE ALSO HAD QUESTIONS REGARDING ELIGIBILTY FOR TRANSPORTATION. CM EXPLAINED DISCHARGE IMM TO PATIENT AND DTR. PATIENT ASK THE DAUGHTER TO SIGN. SIGNATURE OBTAINED. PATIENT CHOICE FORM FOR HOME HEALTH ALSO OBTAINED. CM CALLED THE DIETITIAN TO SPEAK WITH THE PATIENT AND FAMILY ABOUT THE TUBE FEEDING. CM CALLED [facility] TO ADVISE THE PATIENT MAY BE DISCHARGED TODAY. CM SHARED ALL OF THE DAUGHTER'S CONCERNS NOTED ABOVE. CM FAXED CLINICAL. HAD NO DISCHARGE ORDERS OR DISCHARGE SUMMARY. CM WILL CALL [facility] REGARDING TUBE FEEDING AND PUMP/ POLE. DCPIA - Discharge Planning Initial Assessment Updated by [id number]: Daria Acuna on 02/20/19 3:32 pm * Is the patient Alert and Oriented? Yes * PCP DR MONTAÑO * [facility] * Preadmission Environment Home with Family * ADLs Partial Dependent * Partial ADLs (Assistance needed) Ambulation Bathing Dressing Medication Management Toileting * Equipment Bedside Commode Enteral Feeding and Supplies Hospital Bed Oxygen Rolling Walker Wheelchair * Other Equipment [facility] PROVIDES DME * List name and contact numbers for known caregivers / representatives who currently or will assist patient after discharge: DEBORAH BLUE- DAUGHTER- [phone] * Verbal permission to speak to the caregivers and representatives has been obtained from the patient. Yes * Community resources currently utilized Home Health * Please name any agencies selected above. [email or web address] * Additional services required to return to the preadmission environment? Yes * Can the patient safely return to the preadmission environment? Yes * Has this patient been hospitalized within the prior 30 days at any hospital? Yes Last DP export: 02/20/19 3:38 pm Patient Name: CHON LUI Page 58794 at 0850 All edits/amendments must be made on the electronic document DICTATION DATE: 02/21/1949 MANAGER INSPECTION: NAHUN 02/21/1949 RPT#: [id number] DC DATE: STATUS: ADM IN [facility] [address] [place] [address] END OF REPORT
--- NOTE | 2019-02-21 12:20 | MORECARE ---
CASE MANAGEMENT DISCHARGE SUMMARY PATIENT: CHON LUI UNIT: [id number] ADM DATE: 02/16/19 AGE: 68 : 50 SEX: F ROOM/BED: D.1205 AUTHOR: MONET,DOC PHYSICIAN: REFERRING PHYSICIAN: MARY KAY SARKAR MD DATE OF SERVICE: 02/21/19 Discharge Plan Patient Name: CHON LUI Facility: [facility]:[place] : 1950 Planned Disposition: Home with Home Health Anticipated Discharge Date: 02/20/19 Discharge Date: Expected LOS: 4 Initial Reviewer: [email or web address] Initial Review Date: 02/16/2019 Generated: 02/21/19 1:19 pm Comments DCP- Discharge Planning Updated by [email or web address]: Daria Acuna on 02/21/19 11:[address] TC TO [facility], REGARDING SPECIFIC TUBE FEEDING ORDERS. DIETITIAN CONSULT ORDER OBTAINED. RELEASE FOR RELEASE OF HEALTH INFORMATION OBTAINED FROM THE PATIENT. COPY TO THE CHART. TC TO HEALTH INFORMATION AT [facility]. SPOKE W/ NAOMY. SHE IS TO FAX D/C SUMMARY, D/C INSTRUCTIONS AND DISCHARGE MED LIST TO MED II THE MED III FAX IS NOT RECEIVING CORRECTLY. DELAY AND D/C PLAN UPDATED DISCUSSED IN IDT MEETING THIS AM. DCP- Discharge Planning Updated by [id number]: Daria Acuna on 02/21/19 7:[address] PATIENT REMAINS IN HOUSE THIS AM. NO ADDITIONAL MD NOTE FROM DISCHARGE NOTE NOR ANY NURSING DOCUMENTATION REGARDING 02/20/19 DISCHARGE. TC TO DIETITIAN REGARDING DISCHARGE TUBE FEEDING INSTRUCTIONS . SHE STATED THE PATIENT HAD BEEN ON BOLUS FEEDINGD PRIOR TO ADMISSION 9 CANS / DAILY PER THE FAMILY. SHE FELT THIS WAS TOO MUCH FOR THIS PATIENT. PATIENT WAS PLACED ON CONTINOUS FEEDINGS AT [facility] AT 45 ML/ HR WITH H2O 20 ML FLUSHES AND HR. TC TO [facility] [place] [facility] [place] [facility] INFORMATION DEPT FOR COPY OF PATIENT'S DISCHARGE INSTRUCTIONS AND D/C MED LIST. DCP- Discharge Planning Updated by [id number]: Daria Acuna on 02/20/19 3:[address] TC TO [employer] [facility]. SPOKE WITH BETHEL. SHE STATED THE PATIENT HAD NOT BEEN WITH THEM SINCE OCTOBER. SHE WAS BEING TRANSFERED TO A FACILITY IN [place]. CM EXPLAINED THE PATIENT WAS DISCHARGED 02/13/19. THEY DID NOT GET A REFERRAL. TC TO [email or web address] [facility]. SPOKE W/ THE PATIENT'S NURSE. SHE HAD CONTACTED DR MONTAÑO'S OFFICE REGARDING TUBE FEEDING ORDERS. TC TO DR MONTAÑO'S OFFICE. SPOKE WITH HIS NURSE REGARDING FEEDING ISSUE. PROVIDED HER WITH THE CONTACT NUMBER [phone] AND CONTACT NAME, BETHEL, FOR [facility]. CM ALSO ADVISED HER WHY THE PATIENT HAD MISSED HER 02/17/19 APPOINTMENT. DCP- Discharge Planning Updated by [email or web address]: Daria Acuna on 02/20/19 2:[address] LATE ENTRY 1300 CM MET WITH THE PATIENT AND HER DAUGHTER IN THE PATIENT'S ROOM. CM EXPLAINED MY ROLE AND ASK PERMISSION TO PROCEED W/ ASSESSMENT. PATIENT WAS REPORTEDLY JUST DISCHARGED FROM LTAC IN [place] 3 DAYS PRIOR TO ADMISSION AT [facility]. THE PATIENT STAYS WITH HER DAUGHTER AND THE DAUGHTER'S FAMILY. SHE IS ACTIVELY ON SERVICE W/ [facility] FOR [facility] AND PHYSICAL THERAPY. PCP- DR MONTAÑO PHARMACY- [facility] IN [facility] DME- [facility] TUBE FEEDINGS- [facility] IN [place] D[place] HAD QUESTIONS ABOUT OUTPATIENT PHYSICAL THERAPY VS HOME HEALTH PT. SHE WORRIES THAT THE PATIENT PROGRESS WELL W/ H/H PHYSICAL THERAPY. SHE ALSO DISCUSSED HER MOTHER'S TUBE FEEDINGS IE CONTINOUS VS BOLUS. SHE ALSO HAD QUESTIONS REGARDING ELIGIBILTY FOR TRANSPORTATION. CM EXPLAINED DISCHARGE IMM TO PATIENT AND DTR. PATIENT ASK THE DAUGHTER TO SIGN. SIGNATURE OBTAINED. PATIENT CHOICE FORM FOR HOME HEALTH ALSO OBTAINED. CM CALLED THE DIETITIAN TO SPEAK WITH THE PATIENT AND FAMILY ABOUT THE TUBE FEEDING. CM CALLED [facility] TO ADVISE THE PATIENT MAY BE DISCHARGED TODAY. CM SHARED ALL OF THE DAUGHTER'S CONCERNS NOTED ABOVE. CM FAXED CLINICAL. HAD NO DISCHARGE ORDERS OR DISCHARGE SUMMARY. CM WILL CALL [facility] REGARDING TUBE FEEDING AND PUMP/ POLE. DCPIA - Discharge Planning Initial Assessment Updated by [id number]: Daria Acuna on 02/20/19 3:32 pm * Is the patient Alert and Oriented? Yes * PCP DR MONTAÑO * Pharmacy [facility] * Preadmission Environment Home with Family * ADLs Partial Dependent * Partial ADLs (Assistance needed) Ambulation Bathing Dressing Medication Management Toileting * Equipment Bedside Commode Enteral Feeding and Supplies Hospital Bed Oxygen Rolling Walker Wheelchair * Other Equipment [facility] PROVIDES DME * List name and contact numbers for known caregivers / representatives who currently or will assist patient after discharge: DEBORAH WALDEN- [phone] * Verbal permission to speak to the caregivers and representatives has been obtained from the patient. Yes * Community resources currently utilized Home Health * Please name any agencies selected above. [facility] * Additional services required to return to the preadmission environment? Yes * Can the patient safely return to the preadmission environment? Yes * Has this patient been hospitalized within the prior 30 days at any hospital? Yes Last DP export: 02/21/19 7:49 am Patient Name: CHON LUI Page 92451 at 1220 All edits/amendments must be made on the electronic document DICTATION DATE: 02/21/19 121 CLARIFYING PLANT OPERATOR: NAHUN 02/21/19 1219 RPT#: [id number] DC DATE: STATUS: ADM IN [facility] [address] [place] [address] END OF REPORT
--- NOTE | 2019-02-21 14:31 | NUR ---
Nutrition consult: Home bolus TF regimen: Jevity 1.5 mary 4 cans/day as follows: 0800, 1200, 1600, 2000 Flush feeding tube with 90 ml H2O before and after each bolus to meet pts estimated fluid needs. Pt to sit upright during bolus feeds; do not lay down for at least 30 minutes. This bolus TF regimen will provide: 1420 kcal 61 gm protein 1440 ml free H2O Pt should be weighed at least 2 times per week to make sure pt is not losing weight. If pt is losing wt would add an additional can Jevity 1.5 mary. Thank you for the consult.
[2019-02-21 16:00] VITALS: BP 128/71
--- NOTE | 2019-02-21 18:16 | MORECARE ---
CASE MANAGEMENT DISCHARGE SUMMARY PATIENT: CHON LUI UNIT: [id number] ADM DATE: 02/16/19 AGE: 68 : 50 SEX: F ROOM/BED: D.1205 AUTHOR: MONET,DOC PHYSICIAN: REFERRING PHYSICIAN: MARY KAY SARKAR MD DATE OF SERVICE: 02/21/19 Discharge Plan Patient Name: CHON LUI Facility: [facility]:[place] : 1950 Planned Disposition: Home with Home Health Anticipated Discharge Date: 02/20/19 Discharge Date: Expected LOS: 4 Initial Reviewer: [email or web address] Initial Review Date: 02/16/2019 Generated: 02/21/19 7:15 pm Comments DCP- Discharge Planning Updated by [id number]: Daria Acuna on 02/21/19 11:[address] TC TO [facility], REGARDING SPECIFIC TUBE FEEDING ORDERS. DIETITIAN CONSULT ORDER OBTAINED. RELEASE FOR RELEASE OF HEALTH INFORMATION OBTAINED FROM THE PATIENT. COPY TO THE CHART. TC TO HEALTH INFORMATION AT [facility]. SPOKE W/ NAOMY. SHE IS TO FAX D/C SUMMARY, D/C INSTRUCTIONS AND DISCHARGE MED LIST TO MED II THE MED III FAX IS NOT RECEIVING CORRECTLY. DELAY AND D/C PLAN UPDATED DISCUSSED IN IDT MEETING THIS AM. DCP- Discharge Planning Updated by [id number]: Daria Acuna on 02/21/19 7:[address] PATIENT REMAINS IN HOUSE THIS AM. NO ADDITIONAL MD NOTE FROM DISCHARGE NOTE NOR ANY NURSING DOCUMENTATION REGARDING 02/20/19 DISCHARGE. TC TO DIETITIAN REGARDING DISCHARGE TUBE FEEDING INSTRUCTIONS . SHE STATED THE PATIENT HAD BEEN ON BOLUS FEEDINGD PRIOR TO ADMISSION 9 CANS / DAILY PER THE FAMILY. SHE FELT THIS WAS TOO MUCH FOR THIS PATIENT. PATIENT WAS PLACED ON CONTINOUS FEEDINGS AT [facility] AT 45 ML/ HR WITH H2O 20 ML FLUSHES AND HR. TC TO [facility] IN [place] ANAND ID HEALTH INFORMATION DEPT FOR COPY OF PATIENT'S DISCHARGE INSTRUCTIONS AND D/C MED LIST. DCP- Discharge Planning Updated by [id number]: Daria Acuna on 02/20/19 3:[address] TC TO [employer] [facility]. SPOKE WITH BETHEL. SHE STATED THE PATIENT HAD NOT BEEN WITH THEM SINCE OCTOBER. SHE WAS BEING TRANSFERED TO A FACILITY IN [place]. CM EXPLAINED THE PATIENT WAS DISCHARGED 02/13/19. THEY DID NOT GET A REFERRAL. TC TO [facility]. SPOKE W/ THE PATIENT'S NURSE. SHE HAD CONTACTED DR MONTAÑO'S OFFICE REGARDING TUBE FEEDING ORDERS. TC TO DR MONTAÑO'S OFFICE. SPOKE WITH HIS NURSE REGARDING FEEDING ISSUE. PROVIDED HER WITH THE CONTACT NUMBER [phone] AND CONTACT NAME, BETHEL, FOR [facility]. CM ALSO ADVISED HER WHY THE PATIENT HAD MISSED HER 02/17/19 APPOINTMENT. DCP- Discharge Planning Updated by [id number]: Daria Acuna on 02/20/19 2:[address] LATE ENTRY 1300 CM MET WITH THE PATIENT AND HER DAUGHTER IN THE PATIENT'S ROOM. CM EXPLAINED MY ROLE AND ASK PERMISSION TO PROCEED W/ ASSESSMENT. PATIENT WAS REPORTEDLY JUST DISCHARGED FROM [facility] IN [place] 3 DAYS PRIOR TO ADMISSION AT [facility]. THE PATIENT STAYS WITH HER DAUGHTER AND THE DAUGHTER'S FAMILY. SHE IS ACTIVELY ON SERVICE W/ [facility] AND PHYSICAL THERAPY. PCP- DR MONTAÑO PHARMACY- [facility] DME- [facility] TUBE FEEDINGS- [facility] IN [place] DTR HAD QUESTIONS ABOUT OUTPATIENT PHYSICAL THERAPY VS HOME HEALTH PT. SHE WORRIES THAT THE PATIENT PROGRESS WELL W/ H/H PHYSICAL THERAPY. SHE ALSO DISCUSSED HER MOTHER'S TUBE FEEDINGS IE CONTINOUS VS BOLUS. SHE ALSO HAD QUESTIONS REGARDING ELIGIBILTY FOR TRANSPORTATION. CM EXPLAINED DISCHARGE IMM TO PATIENT AND DTR. PATIENT ASK THE DAUGHTER TO SIGN. SIGNATURE OBTAINED. PATIENT CHOICE FORM FOR HOME HEALTH ALSO OBTAINED. CM CALLED THE DIETITIAN TO SPEAK WITH THE PATIENT AND FAMILY ABOUT THE TUBE FEEDING. CM CALLED [facility] TO ADVISE THE PATIENT MAY BE DISCHARGED TODAY. CM SHARED ALL OF THE DAUGHTER'S CONCERNS NOTED ABOVE. CM FAXED CLINICAL. HAD NO DISCHARGE ORDERS OR DISCHARGE SUMMARY. CM WILL CALL [facility] REGARDING TUBE FEEDING AND PUMP/ POLE. DCPIA - Discharge Planning Initial Assessment Updated by [id number]: Daria Acuna on 02/20/19 3:32 pm * Is the patient Alert and Oriented? Yes * PCP DR MONTAÑO * Pharmacy [facility] * Preadmission Environment Home with Family * ADLs Partial Dependent * Partial ADLs (Assistance needed) Ambulation Bathing Dressing Medication Management Toileting * Equipment Bedside Commode Enteral Feeding and Supplies Hospital Bed Oxygen Rolling Walker Wheelchair * Other Equipment [facility] PROVIDES DME * List name and contact numbers for known caregivers / representatives who currently or will assist patient after discharge: DEBORAH WALDEN- [phone] * Verbal permission to speak to the caregivers and representatives has been obtained from the patient. Yes * Community resources currently utilized Home Health * Please name any agencies selected above. [facility] * Additional services required to return to the preadmission environment? Yes * Can the patient safely return to the preadmission environment? Yes * Has this patient been hospitalized within the prior 30 days at any hospital? Yes Last DP export: 02/21/19 11:20 am Patient Name: CHON LUI Page [id number] at 1816 All edits/amendments must be made on the electronic document DICTATION DATE: 02/21/191814 SERVICE COORDINATOR: NAHUN 02/21/191814 RPT#: [id number] DC DATE: STATUS: ADM IN [facility] [address] [place] [address] END OF REPORT
--- NOTE | 2019-02-21 18:23 | MORECARE ---
CASE MANAGEMENT DISCHARGE SUMMARY PATIENT: CHON LUI UNIT: [id number] ADM DATE: 02/16/19 AGE: 68 : 50 SEX: F ROOM/BED: D.1205 AUTHOR: MONET,DOC PHYSICIAN: REFERRING PHYSICIAN: MARY KAY SARKAR MD DATE OF SERVICE: 02/21/19 Discharge Plan Patient Name: CHON LUI Facility: [facility]:[place] : 1950 Planned Disposition: Home with Home Health Anticipated Discharge Date: 02/20/19 Discharge Date: Expected LOS: 4 Initial Reviewer: [email or web address] Initial Review Date: 02/16/2019 Generated: 02/21/19 7:22 pm Comments DCP- Discharge Planning Updated by [email or web address]: Daria Acuna on 02/21/19 5:[address] PATIENT WAS SEEN THIS AFTERNOON BY JOSEPHINE KERR. HERMINIA PABON WAS ROUNDING AND ALSO SPOKE WITH DIETITIAN. PLS REFERENCE DIETITIAN NOTE REGARDING THE FEEDINGS. WILL FAX TO [facility]. DAUGHTER WANTING IV POLE FOR TUBE FEEDING. TUBE FEEDING ISSUE TO BE ADDRESSED W/ HOME [facility]. TUBE FEEDING FOR 3 DAYS SENT HOME W/ THE PATIENT. DAUGHTER TO PROVIDE TRANSPORTATION TO HOME. PATIENT'S DISCHARGE SUMMARY, D/C MEDS LIST AND D/C INSTRUCTIONS WERE NEVER RECEIVED FROM [facility]. SIX TELEPHONE CALLS TO [facility]. TWO DIFFERENT FAX NUMBERS PROVIDED. DCP- Discharge Planning Updated by [id number]: Daria Acuna on 02/21/19 11:[address] TC TO [facility], REGARDING SPECIFIC TUBE FEEDING ORDERS. DIETITIAN CONSULT ORDER OBTAINED. RELEASE FOR RELEASE OF HEALTH INFORMATION OBTAINED FROM THE PATIENT. COPY TO THE CHART. TC TO HEALTH INFORMATION AT [facility]. SPOKE W/ NAOMY. SHE IS TO FAX D/C SUMMARY, D/C INSTRUCTIONS AND DISCHARGE MED LIST TO MED II THE MED III FAX IS NOT RECEIVING CORRECTLY. DELAY AND D/C PLAN UPDATED DISCUSSED IN IDT MEETING THIS AM. DCP- Discharge Planning Updated by [id number]: Daria Acuna on 02/21/19 7:[address] PATIENT REMAINS IN HOUSE THIS AM. NO ADDITIONAL MD NOTE FROM DISCHARGE NOTE NOR ANY NURSING DOCUMENTATION REGARDING 02/20/19 DISCHARGE. TC TO DIETITIAN REGARDING DISCHARGE TUBE FEEDING INSTRUCTIONS . SHE STATED THE PATIENT HAD BEEN ON BOLUS FEEDINGD PRIOR TO ADMISSION 9 CANS / DAILY PER THE FAMILY. SHE FELT THIS WAS TOO MUCH FOR THIS PATIENT. PATIENT WAS PLACED ON CONTINOUS FEEDINGS AT [facility] AT 45 ML/ HR WITH H2O 20 ML FLUSHES AND HR. TC TO [facility] [place], [place] HEALTH INFORMATION DEPT FOR COPY OF PATIENT'S DISCHARGE INSTRUCTIONS AND D/C MED LIST. DCP- Discharge Planning Updated by [id number]: Daria Acuna on 02/20/19 3:[address] TC TO [facility]. SPOKE WITH BETHEL. SHE STATED THE PATIENT HAD NOT BEEN WITH THEM SINCE OCTOBER. SHE WAS BEING TRANSFERED TO A FACILITY IN [place]. CM EXPLAINED THE PATIENT WAS DISCHARGED 02/13/19. THEY DID NOT GET A REFERRAL. TC TO [facility]. SPOKE W/ THE PATIENT'S NURSE. SHE HAD CONTACTED DR MONTAÑO'S OFFICE REGARDING TUBE FEEDING ORDERS. TC TO DR MONTAÑO'S OFFICE. SPOKE WITH HIS NURSE REGARDING FEEDING ISSUE. PROVIDED HER WITH THE CONTACT NUMBER [phone] AND CONTACT NAME, BETHEL, FOR [facility]. CM ALSO ADVISED HER WHY THE PATIENT HAD MISSED HER 02/17/19 APPOINTMENT. DCP- Discharge Planning Updated by [id number]: Daria Acuna on 02/20/19 2:[address] LATE ENTRY 1300 CM MET WITH THE PATIENT AND HER DAUGHTER IN THE PATIENT'S ROOM. CM EXPLAINED MY ROLE AND ASK PERMISSION TO PROCEED W/ ASSESSMENT. PATIENT WAS REPORTEDLY JUST DISCHARGED FROM [facility] IN [place] 3 DAYS PRIOR TO ADMISSION AT [facility]. THE PATIENT STAYS WITH HER DAUGHTER AND THE DAUGHTER'S FAMILY. SHE IS ACTIVELY ON SERVICE W/ [email or web address] PHYSICAL THERAP[facility]. PCP- DR MONTAÑO PHARMACY- [facility] DME- [facility] TUBE FEEDINGS- [facility] IN [place] DTR HAD QUESTIONS ABOUT OUTPATIENT PHYSICAL THERAPY VS HOME HEALTH PT. SHE WORRIES THAT THE PATIENT PROGRESS WELL W/ H/H PHYSICAL THERAPY. SHE ALSO DISCUSSED HER MOTHER'S TUBE FEEDINGS IE CONTINOUS VS BOLUS. SHE ALSO HAD QUESTIONS REGARDING ELIGIBILTY FOR TRANSPORTATION. CM EXPLAINED DISCHARGE IMM TO PATIENT AND DTR. PATIENT ASK THE DAUGHTER TO SIGN. SIGNATURE OBTAINED. PATIENT CHOICE FORM FOR HOME HEALTH ALSO OBTAINED. CM CALLED THE DIETITIAN TO SPEAK WITH THE PATIENT AND FAMILY ABOUT THE TUBE FEEDING. CM CALLED [facility] TO ADVISE THE PATIENT MAY BE DISCHARGED TODAY. CM SHARED ALL OF THE DAUGHTER'S CONCERNS NOTED ABOVE. CM FAXED CLINICAL. HAD NO DISCHARGE ORDERS OR DISCHARGE SUMMARY. CM WILL CALL [facility] REGARDING TUBE FEEDING AND PUMP/ POLE. DCPIA - Discharge Planning Initial Assessment Updated by [id number]: Daria Acuna on 02/20/19 3:32 pm * Is the patient Alert and Oriented? Yes * PCP DR MONTAÑO * Pharmacy [facility] IN [place] * Preadmission Environment Home with Family * ADLs Partial Dependent * Partial ADLs (Assistance needed) Ambulation Bathing Dressing Medication Management Toileting * Equipment Bedside Commode Enteral Feeding and Supplies Hospital Bed Oxygen Rolling Walker Wheelchair * Other Equipment [facility] PROVIDES DME * List name and contact numbers for known caregivers / representatives who currently or will assist patient after discharge: DEBORAH BLUE- IRAM- [phone] * Verbal permission to speak to the caregivers and representatives has been obtained from the patient. Yes * Community resources currently utilized Home Health * Please name any agencies selected above. [email or web address] * Additional services required to return to the preadmission environment? Yes * Can the patient safely return to the preadmission environment? Yes * Has this patient been hospitalized within the prior 30 days at any hospital? Yes Last DP export: 02/21/19 5:16 pm Patient Name: CHON LUI Page 21067 at 1823 All edits/amendments must be made on the electronic document DICTATION DATE: 02/21/191821 FLEXBOARD OPERATOR: NAHUN 02/21/191821 RPT#: [id number] DC DATE: STATUS: ADM IN [facility] [address] [place] [address] END OF REPORT
--- NOTE | 2019-02-21 19:15 | NUR ---
PORT ACCESS D/C. IP NEEDLE TIP INTACT.
== END 2019-02-21 19:53 | disposition home health service (06) | DRG 177 ==
LOC: D.ER 17:05 → D.M3 18:53
PROVIDERS: Family Medicine; ADMIT Internal Medicine Nephrology; ATTEND Internal Medicine Nephrology
DX: J15.212 Pneumonia due to Methicillin resistant Staphylococcus aureus (principal); J96.21 Acute and chronic respiratory failure with hypoxia; E43 Unspecified severe protein-calorie malnutrition; Z68.1 Body mass index [BMI] 19.9 or less, adult; J44.0 Chronic obstructive pulmonary disease with (acute) lower respiratory infection; E87.1 Hypo-osmolality and hyponatremia; J44.1 Chronic obstructive pulmonary disease with (acute) exacerbation; Z99.81 Dependence on supplemental oxygen; J15.6 Pneumonia due to other Gram-negative bacteria; D50.9 Iron deficiency anemia, unspecified; Z93.0 Tracheostomy status

== ENCOUNTER 2019-02-23 23:40 | Emergency (ER) | payer OTHER ==
[~2019-02-23] VITALS: Ht 160 cm; Wt 54.5 kg
[~2019-02-23 23:40] MED LIST changes: +AUGMENTIN 875-11 TAB PO; +CELEXA20 MG PEG; +CYCLOBENZAPRINE5 MG PEG; +FLOMAX0.4 MG PEG; +OMEPRAZOLE20 M1 PEG; +PREDNISONE10 MG PO; +TRAZODONE HCL150 MG PEG
[2019-02-23 23:48] VITALS: Ht 160 cm; Wt 54.5 kg
[2019-02-24] MEDS ORDERED: HYDROCODON-ACE1 EAC7 PO (04:26)
[2019-02-24 05:03] VITALS: BP 130/49
== END 2019-02-24 04:49 | disposition home or self-care (01) ==
LOC: D.ER 23:40
DX: K94.20 Gastrostomy complication, unspecified (principal)

== ENCOUNTER 2019-02-25 18:40 | Inpatient (IN) | payer OTHER ==
[~2019-02-25] VITALS: Ht 160 cm; Wt 54.4 kg
--- NOTE | ~2019-02-25 | CN ---
PATIENT NAME:CHON FABIAN MEDICAL RECORD: [id number] : 50 LOCATION:D. D.2129 ADMIT DATE: 02/25/19 ACCOUNT: [id number] CONSULTING PHYSICIAN: ABELARDO FREEMAN MD REFERRING PHYSICIAN: JEM MANN MD DATE OF CONSULTATION: 02/26/2019 CONSULT REQUESTING PHYSICIAN: Nixon Henderson MD REASON FOR CONSULTATION: Acute exacerbation of chronic obstructive pulmonary disease and shortness of breath. HISTORY OF PRESENT ILLNESS: Ms. Fabian is a 68-year-old female who was discharged from the hospital on 02/20/2019. She was admitted for pneumonia. She underwent bronchoscopy. While she was at home, she was feeling weak. She has shortness of breath with exertion. She was coughing yellow greenish phlegm. She denies any fever and chills, no night sweats. The patient came into the ER last night. She has a leukocytosis, but the chest x-ray did not show any new infiltrate. REVIEW OF SYSTEMS: As in history of present illness. PAST MEDICAL HISTORY: 1. Small cell carcinoma of the lung, treated with chemotherapy. 2. History of head and neck surgery. 3. Gastroesophageal reflux disease. 4. Pneumonia. 5. Hypothyroidism. 6. Anxiety and depression. PAST SURGICAL HISTORY: 1. Knee surgery. 2. She has a tracheostomy and PEG tube placement. 3. Hysterectomy. ALLERGIES: There is no known drug allergy. MEDICATIONS: [employer] is reviewed. PERSONAL AND SOCIAL HISTORY: The patient is an ex-smoker. She is a nondrinker. FAMILY HISTORY: Noncontributory. PHYSICAL EXAMINATION: GENERAL: Now, the patient is lying comfortably. She is not in acute distress. VITAL SIGNS: The blood pressure is 118/48, pulse is 88, respiration is 17, temperature 98.6, and SpO2 97% on 2 liters nasal cannula. HEENT: Conjunctivae are pink. Sclerae are not icteric. NECK: Supple. No JVD. CHEST: There is coarse breath sounds. Wheezing on forceful expiration. HEART: Rhythm regular, normal sound, no murmur. ABDOMEN: Soft, bowel sounds present. No hepatosplenomegaly. RECTAL: Deferred. EXTREMITIES: No cyanosis, no clubbing, no pedal edema. CENTRAL NERVOUS SYSTEM: The patient is awake and alert. There is no obvious CONSULT REPORT [id number] CHON FABIAN cranial nerve abnormality. The gait was not tested. CHEST RADIOGRAPH: There is no acute infiltrate. OTHER LABORATORY DATA: CBC: WBC 12.5, hemoglobin 12.8, hematocrit 39.5, the platelet count is 283. Chemistry: Sodium 132, potassium 4.2, BUN is 19, and creatinine 0.6. IMPRESSION: 1. Acute exacerbation of chronic obstructive pulmonary disease. 2. Tracheobronchitis. 3. Leukocytosis. 4. Annkx-rs-qmcmosp hypoxic respiratory failure. 5. History of small cell carcinoma of the lung. 6. Gastroesophageal reflux disease. 7. History of head and neck cancer. 8. Status post PEG tube placement and tracheostomy. RECOMMENDATION: 1. Continue empiric Levaquin. 2. Start on Brovana and budesonide nebulizer. 3. Albuterol ipratropium nebulizer. 4. Methylprednisolone IV. 5. Check the sputum culture. 6. The patient was advised not to wear [place] wall as the patient's significant sputum production. Follow up labs and chest radiograph. Dr. Henderson, thank you for involving me in the care of Ms. Fabian. TRANSINT:[id number] Voice Confirmation ID: [id number] DOCUMENT ID: [id number] ABELARDO FREEMAN MD CC: [id number] DICTATION DATE: 02/26/191448 HIGH SCHOOL COMPUTER SCIENCE TEACHER: 02/26/192153 ADM IN [facility] [id number] [place] [address]
[~2019-02-25 18:40] MED LIST changes: +HYDROCODON-ACE1 EAC7 PO
--- NOTE | 2019-02-25 19:04 | NUR ---
PT RESTING ON BED. PT ON 3L O2 AT THIS TIME. O2 SAT 94%.
[2019-02-25 19:15] LABS: BASOPHILS 0.2 % (0-2); EOSINOPHILS 0.6 % (0-7); HEMATOCRIT 39.5 % (36.0-48.0); HEMOGLOBIN 12.8 g/dL (12-16); IMMATURE GRANULOCYTES 0.6 % (0-5); LYMPHOCYTES 13.4 % (15-50); MCH 28.5 pg (26.0-34.0); MCHC 32.4 g/dL (31.0-37.0); MEAN PLATELET VOLUME 8.2 fL (7.4-10.4); MONOCYTES 4.9 % (2-11); NEUTROPHILS 80.3 % (40-80); PLATELET COUNT 283 10x3/uL (130-400); RBC 4.49 10x6/uL (4.00-5.40); RDW 17.6 % (11.5-14.5); WBC 12.5 10x3/uL (4.8-10.8)
[2019-02-25 19:23] LABS: APTT 35.3 SECONDS (22.8-39.4); INR 1.14 (0.85-1.17); PROTIME 14.1 SECONDS (11.6-15.0)
[2019-02-25 19:24] LABS: D-DIMER-QUANTITATIVE 0.87 ug/mLFEU (0.20-0.54)
[2019-02-25 19:30] VITALS: BP 105/81
[2019-02-25 19:38] LABS: ALBUMIN 2.5 g/dL (3.4-5.0); ALKALINE PHOSPHATASE 120 U/L (46-116); ALT (SGPT) 37 U/L (10-68); BILIRUBIN - TOTAL 0.44 mg/dL (0.2-1.3); CALC OSMOLALITY 267 mosm/kg (275-300); CALCIUM 8.6 mg/dL (8.5-10.1); CARBON DIOXIDE 32.2 mmol/L (21.0-32.0); CHLORIDE - SERUM 95 mmol/L (98-107); CREATININE - SERUM 0.6 mg/dL (0.6-1.3); GLUCOSE 118 mg/dL (74-106); POTASSIUM - SERUM 4.2 mmol/L (3.5-5.1); PROTEIN - SERUM 6.5 g/dL (6.4-8.2); SODIUM 132 mmol/L (136-145); UREA NITROGEN 19 mg/dL (7-18); eGFR NON AFRICAN AMERICAN > 90 mL/min (90-120)
[2019-02-25 19:48] LABS: CKMB 0.3 U/L (0.0-3.6); CREATINE KINASE 7 UL (21-215); PRO BNP 274 pg/mL (0-125)
[2019-02-25 19:52] LABS: TROPONIN-I < 0.017 ng/mL (0.000-0.060)
--- NOTE | 2019-02-25 20:50 | NUR ---
PT LEFT ED VIA STRETCHER FOR CTA.
--- NOTE | 2019-02-25 21:15 | NUR ---
PT RETURNED FROM CT.
[2019-02-25 21:30] VITALS: BP 113/45
--- NOTE | 2019-02-25 21:30 | NUR ---
PT RESTING ON BED. FAMILY AT BEDSIDE.
--- NOTE | 2019-02-25 21:52 | NUR ---
PA AT PT BEDSIDE. PLAN OF CARE DISCUSSED WITH PT AND FAMILY.
--- NOTE | 2019-02-25 23:05 | NUR ---
PT ASSISTED ONTO BEDPAN.
[2019-02-26] MEDS ORDERED: TIROSINT13 MCG PEG (00:22)
[2019-02-26 02:01] VITALS: BP 123/59
--- NOTE | 2019-02-26 02:18 | NUR ---
RECIEVED REPORT FROM KAYCEE DO IN ER. RECIEVED TO FLOOR ON STRETCHER. TRANSFER TO BED BY 3 STAFF. ALERT AND ORIENTED X4. DAUGHTER AT BEDISDE AND HELPS ANSWER QUESTIONS. O2@2 LITERS PER N/C. PEG TUBE TO RIGHT UPPER QUADRANT. CHECKED FOR PATENCY AND FLUSHED. PT HAS BEEN NPO AND RECIEVES JEVITY 1.2. 2 CANS QID.UNABLE TO WEIGHT. STATED WT 120. COCCYX SLIGHTLY JJ. TRACH SUCTIONED AND CANNULA CLEANED. PORT ACCESSED IN ER AND INFUSING NS AT 70CC/HR. DENIES ANY NEEDS AT THIS TIME.
[2019-02-26 04:00] VITALS: BP 97/52
--- NOTE | 2019-02-26 07:45 | NUR ---
PT ALERT AND ORIENTED. TRACH INTACT. NO DRAINAGE NOTED. ASSESSMENT DONE. PT DENIES NEEDS AT THIS TIME. RR EVEN AND UNLABORED. WILL CONTINUE TO MONITOR. 0945- PT REQUESTED TO BE SUCTIONED. RESPIRATORY THERAPY AT [facility]. DEEP SUCTION COMPLETE. SCANT AMOUNT OF PINK MUCOUS SUCTIONED OUT.
[2019-02-26 09:39] LABS: APPEARANCE CLOUDY (CLEAR); BILIRUBIN NEGATIVE (NEGATIVE); COLOR YELLOW (YELLOW); GLUCOSE NEGATIVE (NEGATIVE); KETONE NEGATIVE (NEGATIVE); NITRITE NEGATIVE (NEGATIVE); PROTEIN NEGATIVE (NEGATIVE); UROBILINOGEN NORMAL (NORMAL)
[2019-02-26 09:40] VITALS: BP 118/48
[2019-02-26 09:44] LABS: BACTERIA FEW /hpf (NONE SEEN); EPITHELIAL CELLS 0-5 /hpf (0-5); RED CELLS - URINE 0-5 /hpf (0-5); WHITE CELLS - URINE 0-5 /hpf (0-5)
--- NOTE | 2019-02-26 10:38 | NUR ---
TUBE FEEDING GIVEN PER ORDER. NO RESIDUAL NOTED BEFORE FEED. PT TOLERATED WELL.
--- NOTE | 2019-02-26 14:45 | NUR ---
FEEDING COMPLETE PER ORDER. 50ML RESIDUAL PULLED AND REPLACED BEFORE ADMINISTERED. PT TOLERATED WELL.
[2019-02-26 17:00] VITALS: BP 106/46
--- NOTE | 2019-02-26 17:50 | NUR ---
FAMILY AT BEDSIDE. DENIES NEEDS AT THIS TIME. NO DISTRESS NOTED. SCD'S PLACED. RR EVEN AND UNLABORED.
--- NOTE | 2019-02-26 18:13 | NUR ---
TUBE FEEDING COMPLETE. 55ML RESIDUAL PULLED AND REPLACED BEFORE FEEDING. PT TOLERATED WELL.
--- NOTE | 2019-02-26 19:23 | NUR ---
RECIEVED UP IN BED WITH EYES OPEN AND TV ON. ALERT AND ORIENTED X4. O2@ 2 LITERS PER N/C. PEG TUBE TO LEFT UPPER QUADRANT. TRACH INTACT. IV TO LEFT CHEST PORT SL. DENIES ANY NEEDS AT THIS TIME.
[2019-02-26 20:00] VITALS: BP 104/41
--- NOTE | 2019-02-26 22:59 | NUR ---
UNABLE TO DO FEEDING. 190CC RESIDUAL RETURNED AND FEEDING HELD. GAVE AMBIEN WITH SMALL FLUSH OF 30CC. ELEVATED HIGHER IN BED. CANNULA CLEANSE AND PLACED BACK WITH VOICE BOX. STATED " IT FEELS MUCH BETTER". DENIES ANY OTHER NEEDS AT THIS TIME.
[2019-02-27] VITALS: BP 111/46
--- NOTE | 2019-02-27 02:15 | NUR ---
RECHECKED RESIDUAL AND RECIEVED 75CC RETURNED. GAVE 1 CAN JEVITY 1.2 AND KEPT UP IN 45 DEGREE ANGLE IN BED. DENIES ANY NAUSEA OR DISCOMFORT.
[2019-02-27 04:00] VITALS: BP 112/49
[2019-02-27 05:56] LABS: BASOPHILS 0 % (0-2); EOSINOPHILS 0 % (0-7); HEMATOCRIT 33.9 % (36.0-48.0); HEMOGLOBIN 10.9 g/dL (12-16); IMMATURE GRANULOCYTES 0.3 % (0-5); LYMPHOCYTES 8.1 % (15-50); MCH 27.9 pg (26.0-34.0); MCHC 32.2 g/dL (31.0-37.0); MCV 86.9 fL (80.0-100.0); MEAN PLATELET VOLUME 8.5 fL (7.4-10.4); NEUTROPHILS 89.6 % (40-80); PLATELET COUNT 283 10x3/uL (130-400); RDW 17.6 % (11.5-14.5)
[2019-02-27 06:12] LABS: ALBUMIN 2.1 g/dL (3.4-5.0); ALKALINE PHOSPHATASE 114 U/L (46-116); ALT (SGPT) 28 U/L (10-68); BILIRUBIN - TOTAL 0.16 mg/dL (0.2-1.3); CALC OSMOLALITY 274 mosm/kg (275-300); CARBON DIOXIDE 25.8 mmol/L (21.0-32.0); CHLORIDE - SERUM 100 mmol/L (98-107); CREATININE - SERUM 0.6 mg/dL (0.6-1.3); GLUCOSE 213 mg/dL (74-106); MAGNESIUM - SERUM 1.8 mg/dL (1.8-2.4); POTASSIUM - SERUM 4.4 mmol/L (3.5-5.1); PROTEIN - SERUM 6.1 g/dL (6.4-8.2); SODIUM 132 mmol/L (136-145); UREA NITROGEN 23 mg/dL (7-18); eGFR NON AFRICAN AMERICAN > 90 mL/min (90-120)
--- NOTE | 2019-02-27 07:39 | NUR ---
BED SIDE REPORT COMPLETE. PT SITTING HIGH FOWLERS. RR EVEN AND UNLABORED ON 2L NC. PT DENIES NEEDS AT THIS TIME. NO DISTRESS NOTED. WILL CONTINUE TO MONITOR.
[2019-02-27 09:12] VITALS: BP 120/55
--- NOTE | 2019-02-27 10:28 | NUR ---
DEEP SUCTION COMPLETE WITHOUT BREAKING STERILE AND PER ORDERS. LIGHT YELLOW SPUTUM NOTED. FEEDING COMPLETE WITH NO RESIDUAL PULLED BEFORE FEED. 2 CANS GIVEN PER ORDER. PT TOLERATED WELL. PEG TUBE DRESSING HAD SCANT AMOUNT OF BLOOD AND YELLOW AND BROWN DRAINAGE. DRESSING CHANGED CDI. PT DENIES NEEDS AT THIS TIME.
[2019-02-27 13:47] VITALS: Ht 160 cm; Wt 54.4 kg
--- NOTE | 2019-02-27 15:33 | MORECARE ---
CASE MANAGEMENT DISCHARGE SUMMARY PATIENT: CHON LUI UNIT: [id number] ADM DATE: 02/25/19 AGE: 68 : 50 SEX: F ROOM/BED: D.6439 AUTHOR: MONET,DOC PHYSICIAN: REFERRING PHYSICIAN: JEM MANN MD DATE OF SERVICE: 02/27/19 Discharge Plan Patient Name: CHON LUI Facility: [facility]:[place] : 1950 Planned Disposition: Inpatient Rehab Anticipated Discharge Date: 02/28/19 Discharge Date: Expected LOS: 3 Initial Reviewer: [email or web address] Initial Review Date: 02/27/2019 Generated: 02/27/19 4:33 pm DCPIA - Discharge Planning Initial Assessment Updated by DEVON: Bryn Ha on 02/27/19 3:32 pm * Is the patient Alert and Oriented? Yes * How many steps to enter\exit or inside your home? NONE * PCP DR. MONTAÑO * Pharmacy [facility] * Preadmission Environment Home with Family * ADLs Partial Dependent * Partial ADLs (Assistance needed) Ambulation Bathing Dressing Medication Management Toileting * Equipment Bedside Commode Enteral Feeding and Supplies Hospital Bed Oxygen Walker Wheelchair * Other Equipment HOME OXYGEN ONLY [facility] * List name and contact numbers for known caregivers / representatives who currently or will assist patient after discharge: DEBORAH BLUE DTR/[place]O, * Verbal permission to speak to the caregivers and representatives has been obtained from the patient. Yes * Community resources currently utilized Home Health * Please name any agencies selected above. [facility], NURSING, OCCUPATIONAL AND PHYSICAL THERAPY * Additional services required to return to the preadmission environment? Yes * Can the patient safely return to the preadmission environment? Yes * Has this patient been hospitalized within the prior 30 days at any hospital? Yes Coverage Notice Reviewer: [id number] - Bryn Ha Notice Issued Date-Time: 02/27/2019 12:50 Notice Type: Patient Choice Letter Notice Delivered To: Patient Relationship to Patient: Production Honing Machine Operator Name: Delivery Method: HAND - Hand Delivered Cassandra Days: Prior Verbal Notification: Recipient Understood Notice: Yes Recipient Signature: Yes Med Rec Note Co-signed by Attending: Coverage Notice Comment: [facility] Reviewer: [id number] Holly Bryn Ha Notice Issued Date-Time: 02/27/2019 12:50 Notice Type: IM Discharge Notice Notice Delivered To: Patient Relationship to Patient: Production Honing Machine Operator Name: Delivery Method: HAND - Hand Delivered Cassandra Days: Prior Verbal Notification: Recipient Understood Notice: Yes Recipient Signature: Yes Med Rec Note Co-signed by Attending: Coverage Notice Comment: DC IM 02-27-19, 1250. TB Patient Name: CHON LUI Page 91246 at 1533 All edits/amendments must be made on the electronic document DICTATION DATE: 02/27/19 1533 EMPLOYMENT PROGRAM REPRESENTATIVE: NAHUN 02/27/19 1533 RPT#: [id number] DC DATE: STATUS: ADM IN [facility] [address] [place] [address] END OF REPORT
[2019-02-27 15:42] VITALS: BP 108/46
--- NOTE | 2019-02-27 15:44 | MORECARE ---
CASE MANAGEMENT DISCHARGE SUMMARY PATIENT: CHON LUI UNIT: [id number] ADM DATE: 02/25/19 AGE: 68 : 50 SEX: F ROOM/BED: D.5550 AUTHOR: MONET,DOC PHYSICIAN: REFERRING PHYSICIAN: JEM MANN MD DATE OF SERVICE: 02/27/19 Discharge Plan Patient Name: CHON LUI Facility: [facility]:[employer] : 1950 Planned Disposition: Inpatient Rehab Anticipated Discharge Date: 02/28/19 Discharge Date: Expected LOS: 3 Initial Reviewer: [id number] Initial Review Date: 02/27/2019 Generated: 02/27/19 4:43 pm Comments DCP- Discharge Planning Updated by [id number]: Bryn Ha on 02/27/19 2:[address] Patient Name: CHON LUI Admission Status: ER Accout number: [id number] Admission Date: 02-25-2019 : 1950 Admission Diagnosis: Attending: JEM MANN Current LOS: 2 Anticipated DC Date: 02-28-2019 Planned Disposition: Inpatient Rehab Primary Insurance: [employer] PLANNED EXTERNAL PROVIDER: [facility] IN[facility] Discharge Planning Comments: CM MET WITH PT IN ROOM TO DISCUSS DISCHARGE PLANNING AND NEEDS. PT REPORTS LIVING AT HOME DEPENDENT UPON HER ADULT DAUGHTER FOR BATHING, TOILETING, TRANSFERS, DRESSING AND FEEDING TUBE CARE / FEEDING/MEDICATIONS. PT HAS BEDSIDE COMMODE, FEEDING TUBE SUPPLIES, HOSPITAL BED, HOME OXYGEN, WALKER AND WHEELCHAIR. PT USES [employer] FOR MEDICAL EQUIPMENT. PT HAS [facility] FOR NURSING, OCCUPATIONAL AND PHYSICAL THERAPY AT HOME. CM DISCUSSED AVAILABILITY OF HOME HEALTH, REHAB SERVICES AND MEDICAL EQUIPMENT. PT DENIES DISCHARGE NEEDS, REPORTS PLAN TO RETURN HOME WITH [employer] [facility], REPORTS HER DAUGHTER WILL PICK HER UP FOR DISCHARGE HOME. IMPORTANT MESSAGE FROM MEDICARE PROVIDED AND EXPLAINED. CHOICE FOR [facility] [facility] SIGNED. CM RECEVIED MESSAGE FROM DAUGHTER/POA, JANIYA BLUE, WHO INFORMED CM THAT THEY WANT PT REFERRED TO [facility] AT DISCHARGE. CM SPOKE TO PT IN ROOM WHO AGREES WITH PLAN. CM CALLED [facility], , PROVIDED REFERRAL INFORMATION TO [facility] WHO WILL SCREEN PT FOR REHAB ADMISSION. CM FAXED REFERRAL TO [facility] AT [phone]. CM WAITING ADMISSION DETERMINATION FROM [facility]. Recycling Attendant: Bryn Ha DCPIA - Discharge Planning Initial Assessment Updated by [id number]: Bryn Ha on 02/27/19 3:32 pm * Is the patient Alert and Oriented? Yes * How many steps to enter\exit or inside your home? NONE * PCP DR. MONTAÑO * Pharmacy [facility] * Preadmission Environment Home with Family * ADLs Partial Dependent * Partial ADLs (Assistance needed) Ambulation Bathing Dressing Medication Management Toileting * Equipment Bedside Commode Enteral Feeding and Supplies Hospital Bed Oxygen Walker Wheelchair * Other Equipment HOME OXYGEN ONLY [facility] * List name and contact numbers for known caregivers / representatives who currently or will assist patient after discharge: DEBORAH BLUE DTR/CHAPARRO, * Verbal permission to speak to the caregivers and representatives has been obtained from the patient. Yes * Community resources currently utilized Home Health * Please name any agencies selected above. [facility], NURSING, OCCUPATIONAL AND PHYSICAL THERAPY * Additional services required to return to the preadmission environment? Yes * Can the patient safely return to the preadmission environment? Yes * Has this patient been hospitalized within the prior 30 days at any hospital? Yes External Providers [facility] Next Contact Date: 02/27/2019 Service Request Date: Service Type: Resolution: Reviewer: Comments: Coverage Notice Reviewer: [id number] Holly Ha Notice Issued Date-Time: 02/27/2019 12:50 Notice Type: Patient Choice Letter Notice Delivered To: Patient Relationship to Patient: Volunteer Services Assistant Name: Delivery Method: HAND - Hand Delivered Cassandra Days: Prior Verbal Notification: Recipient Understood Notice: Yes Recipient Signature: Yes Med Rec Note Co-signed by Attending: Coverage Notice Comment: [facility] Reviewer: [id number] Holly Ha Notice Issued Date-Time: 02/27/2019 12:50 Notice Type: IM Discharge Notice Notice Delivered To: Patient Relationship to Patient: Volunteer Services Assistant Name: Delivery Method: HAND - Hand Delivered Cassandra Days: Prior Verbal Notification: Recipient Understood Notice: Yes Recipient Signature: Yes Med Rec Note Co-signed by Attending: Coverage Notice Comment: FRANCISCO IM 02-27-19, 1250. TB Last DP export: 02/27/19 2:33 p Patient Name: CHON LUI Page 74114 at 1544 All edits/amendments must be made on the electronic document DICTATION DATE: 02/27/191542 INDEPENDENT VIDEO PRODUCER: NAHUN 02/27/191542 RPT#: [id number] DC DATE: STATUS: ADM IN [facility] [address] [place] [address] END OF REPORT
--- NOTE | 2019-02-27 18:20 | NUR ---
FAMILY AT BEDSIDE. EDUCATED PT AND FAMILY ABOUT PEG TUBE FEEDINGS AND CHECKING RESIDUAL BEFORE FEED. VERBALIZES UNDERSTANDING AND NO FURTHER QUESTIONS.
--- NOTE | 2019-02-27 19:13 | NUR ---
RECIEVED UP IN BED WITH HOB ELEVATED. ALERT AND ORIENTED X4. BEDFAST AT THIS TIME. O2@ 2 LITERS PER N/C IN PLACE. IV TO LEFT PORT SL.. TRACH INTACT. PEG TUBE CHECKED FOR PATENCY WITH [address] PL[address]. DENIES ANY NEEDS AT THIS TIME.
[2019-02-27 21:12] VITALS: BP 109/55
[2019-02-28] VITALS: BP 160/98
[2019-02-28 04:00] VITALS: BP 124/64
[2019-02-28 06:05] LABS: BASOPHILS 0 % (0-2); EOSINOPHILS 0 % (0-7); HEMATOCRIT 34.7 % (36.0-48.0); HEMOGLOBIN 11.2 g/dL (12-16); IMMATURE GRANULOCYTES 0.1 % (0-5); LYMPHOCYTES 7.2 % (15-50); MCH 28.2 pg (26.0-34.0); MCHC 32.3 g/dL (31.0-37.0); MCV 87.4 fL (80.0-100.0); MEAN PLATELET VOLUME 8.7 fL (7.4-10.4); MONOCYTES 3.4 % (2-11); NEUTROPHILS 89.3 % (40-80); PLATELET COUNT 293 10x3/uL (130-400); RBC 3.97 10x6/uL (4.00-5.40); RDW 17.8 % (11.5-14.5); WBC 7.1 10x3/uL (4.8-10.8)
[2019-02-28 06:31] LABS: ALBUMIN 2.1 g/dL (3.4-5.0); ALKALINE PHOSPHATASE 96 U/L (46-116); ALT (SGPT) 25 U/L (10-68); BILIRUBIN - TOTAL 0.19 mg/dL (0.2-1.3); CALC OSMOLALITY 270 mosm/kg (275-300); CALCIUM 8.1 mg/dL (8.5-10.1); CARBON DIOXIDE 28.3 mmol/L (21.0-32.0); CHLORIDE - SERUM 100 mmol/L (98-107); CREATININE - SERUM 0.5 mg/dL (0.6-1.3); GLUCOSE 148 mg/dL (74-106); MAGNESIUM - SERUM 1.9 mg/dL (1.8-2.4); POTASSIUM - SERUM 4.6 mmol/L (3.5-5.1); PROTEIN - SERUM 6.2 g/dL (6.4-8.2); SODIUM 132 mmol/L (136-145); UREA NITROGEN 22 mg/dL (7-18); eGFR NON AFRICAN AMERICAN > 90 mL/min (90-120)
--- NOTE | 2019-02-28 07:19 | NUR ---
RESTING, NO DISTRESS NOTED. RESP EVEN AND UNLABORED. CL IN REACH.
[2019-02-28 08:45] VITALS: BP 155/68
[2019-02-28 11:29] VITALS: BP 142/61
--- NOTE | 2019-02-28 12:00 | MORECARE ---
CASE MANAGEMENT DISCHARGE SUMMARY PATIENT: CHON LUI UNIT: [id number] ADM DATE: 02/25/19 AGE: 68 : 50 SEX: F ROOM/BED: D.1484 AUTHOR: MONET,DOC PHYSICIAN: REFERRING PHYSICIAN: JEM MANN MD DATE OF SERVICE: 02/28/19 Discharge Plan Patient Name: CHON LUI Facility: [facility]:[place] : 1950 Planned Disposition: Inpatient Rehab Anticipated Discharge Date: 02/28/19 Discharge Date: Expected LOS: 3 Initial Reviewer: [id number] Initial Review Date: 02/27/2019 Generated: 02/28/19 1:00 pm Comments DCP- Discharge Planning Updated by [id number]: Bryn Ha on 02/28/19 10:[address] Patient Name: CHON LUI Encounter No: [id number] : 1950 Primary Insurance: [employer]ASYNebo.ruCR Anticipated DC Date: 02-28-2019 Planned Disposition: Inpatient Rehab External Planned Provider: [facility] INPATIENT [facility] DISCHARGE PLANNING NOTES: CM FAXED REFERRAL UDPATE TO [facility] AT [phone]. CM WILL FAX PHYSICAL THERAPY NOTE AND OCCUPATIONAL THERAPY EVALUATION WHEN DOCUMENTED. CM WAITING ADMISSION DETERMINATION FROM [facility] INPAT[facility] WELL INSURANCE AUTHORIZATION FOR REHAB SERVICES. Sewer: Bryn Ha DCP- Discharge Planning Updated by [id number]: Bryn Ha on 02/27/19 2:[address] Patient Name: CHON LUI Admission Status: ER Accout number: [id number] Admission Date: 02-25-2019 : 1950 Admission Diagnosis: Attending: JEM MANN Current LOS: 2 Anticipated DC Date: 02-28-2019 Planned Disposition: Inpatient Rehab Primary Insurance: [employer]YN[employer]o.ruCR PLANNED EXTERNAL PROVIDER: [facility] Discharge Planning Comments: CM MET WITH PT IN ROOM TO DISCUSS DISCHARGE PLANNING AND NEEDS. PT REPORTS LIVING AT HOME DEPENDENT UPON HER ADULT DAUGHTER FOR BATHING, TOILETING, TRANSFERS, DRESSING AND FEEDING TUBE CARE / FEEDING/MEDICATIONS. PT HAS BEDSIDE COMMODE, FEEDING TUBE SUPPLIES, HOSPITAL BED, HOME OXYGEN, WALKER AND WHEELCHAIR. PT USES [facility] FOR MEDICAL EQUIPMENT. PT HAS [facility] FOR NURSING, OCCUPATIONAL AND PHYSICAL THERAPY AT HOME. CM DISCUSSED AVAILABILITY OF HOME HEALTH, REHAB SERVICES AND MEDICAL EQUIPMENT. PT DENIES DISCHARGE NEEDS, REPORTS PLAN TO RETURN HOME WITH [facility], REPORTS HER DAUGHTER WILL PICK HER UP FOR DISCHARGE HOME. IMPORTANT MESSAGE FROM MEDICARE PROVIDED AND EXPLAINED. CHOICE FOR [facility] SIGNED. CM RECEVIED MESSAGE FROM DAUGHTER/POA, JANIYA BLUE, WHO INFORMED CM THAT THEY WANT PT REFERRED TO [facility] INPAT[facility] RE[facility] AT DISCHARGE. CM SPOKE TO PT IN ROOM WHO AGREES WITH PLAN. CM CALLED [facility], , PROVIDED REFERRAL INFORMATION TO [facility] WHO WILL SCREEN PT FOR REHAB ADMISSION. CM FAXED REFERRAL TO [facility] AT [phone]. CM WAITING ADMISSION DETERMINATION FROM [facility]. Sewer: [facility] Planning Initial Assessment Updated by [id number]: Bryn Ha on 02/27/19 3:32 pm * Is the patient Alert and Oriented? Yes * How many steps to enter\exit or inside your home? NONE * PCP DR. MONTAÑO * Pharmacy [facility] * Preadmission Environment Home with Family * ADLs Partial Dependent * Partial ADLs (Assistance needed) Ambulation Bathing Dressing Medication Management Toileting * Equipment Bedside Commode Enteral Feeding and Supplies Hospital Bed Oxygen Walker Wheelchair * Other Equipment HOME OXYGEN ONLY [facility] * List name and contact numbers for known caregivers / representatives who currently or will assist patient after discharge: DEBORAH BLUE DTR/CHAPARRO, * Verbal permission to speak to the caregivers and representatives has been obtained from the patient. Yes * Community resources currently utilized Home Health * Please name any agencies selected above. [facility], NURSING, OCCUPATIONAL AND PHYSICAL THERAPY * Additional services required to return to the preadmission environment? Yes * Can the patient safely return to the preadmission environment? Yes * Has this patient been hospitalized within the prior 30 days at any hospital? Yes Coverage Notice Reviewer: [id number] - Bryn Ha Notice Issued Date-Time: 02/27/2019 12:50 Notice Type: Patient Choice Letter Notice Delivered To: Patient Relationship to Patient: Piano Assembler Name: Delivery Method: HAND - Hand Delivered Cassandra Days: Prior Verbal Notification: Recipient Understood Notice: Yes Recipient Signature: Yes Med Rec Note Co-signed by Attending: Coverage Notice Comment: [facility] Reviewer: [id number] Holly Clemente Leland Notice Issued Date-Time: 02/27/2019 12:50 Notice Type: IM Discharge Notice Notice Delivered To: Patient Relationship to Patient: Piano Assembler Name: Delivery Method: HAND - Hand Delivered Cassandra Days: Prior Verbal Notification: Recipient Understood Notice: Yes Recipient Signature: Yes Med Rec Note Co-signed by Attending: Coverage Notice Comment: DC IM 02-27-19, 1250. TB Last DP export: 02/27/19 2:43 p Patient Name: CHON LUI Page [id number] at 1200 All edits/amendments must be made on the electronic document DICTATION DATE: 02/28/19 1159 CARD PLAYER: NAHUN 02/28/19 1159 RPT#: [id number] DC DATE: STATUS: ADM IN [facility] [address] [place] [address] END OF REPORT
--- NOTE | 2019-02-28 13:02 | NUR ---
REPOSITINED IN BED. HOB 45 DEGRESS. SCDS ARE ON. NO C/O PAIN. TOLERATING TUBE FEEDINGS WO DIFFICULTY. CL IN REACH.
--- NOTE | 2019-02-28 14:20 | MORECARE ---
CASE MANAGEMENT DISCHARGE SUMMARY PATIENT: CHON LUI UNIT: [id number] ADM DATE: 02/25/19 AGE: 68 : 50 SEX: F ROOM/BED: D.1036 AUTHOR: MONETDOC PHYSICIAN: REFERRING PHYSICIAN: JEM MANN MD DATE OF SERVICE: 02/28/19 Discharge Plan Patient Name: CHON LUI Facility: [facility]:[place] : 1950 Planned Disposition: Inpatient Rehab Anticipated Discharge Date: 02/28/19 Discharge Date: Expected LOS: 3 Initial Reviewer: [email or web address] Initial Review Date: 02/27/2019 Generated: 02/28/19 3:20 pm Comments DCP- Discharge Planning Updated by [id number]: Bryn Ha on 02/28/19 1:[address] Patient Name: CHON LUI Encounter No: [id number] : 1950 Primary Insurance: NOVASYWunsch-BrautkleidCR Anticipated DC Date: 02-28-2019 Planned Disposition: Inpatient Rehab External Planned Provider: [facility] CM FAXED OCCUPATIONAL THERAPY EVALUATION TO [facility]. CM WAITING ADMISSION DETERMINATION FROM [facility] WELL INSURANCE AUTHORIZATION FOR REHAB SERVICES. District Court Administrator: Bryn Ha DCP- Discharge Planning Updated by [id number]: Bryn Ha on 02/28/19 10:[address] Patient Name: CHON LUI Encounter No: [id number] : 1950 Primary Insurance: NOVASYSMCR Anticipated DC Date: 02-28-2019 Planned Disposition: Inpatient Rehab External Planned Provider: [facility] DISCHARGE PLANNING NOTES: CM FAXED REFERRAL UDPATE TO [facility] AT [phone]. CM WILL FAX PHYSICAL THERAPY NOTE AND OCCUPATIONAL THERAPY EVALUATION WHEN DOCUMENTED. CM WAITING ADMISSION DETERMINATION FROM [facility] WELL INSURANCE AUTHORIZATION FOR REHAB SERVICES. District Court Administrator: Bryn Ha DCP- Discharge Planning Updated by [id number]: Bryn Ha on 02/27/19 2:[address] Patient Name: CHON LUI Admission Status: ER Accout number: [id number] Admission Date: 02-25-2019 : 1950 Admission Diagnosis: Attending: JEM MANN Current LOS: 2 Anticipated DC Date: 02-28-2019 Planned Disposition: Inpatient Rehab [facility] PLANNED EXTERNAL PROVIDER: [facility] INPAT[facility] Discharge Planning Comments: CM MET WITH PT IN ROOM TO DISCUSS DISCHARGE PLANNING AND NEEDS. PT REPORTS LIVING AT HOME DEPENDENT UPON HER ADULT DAUGHTER FOR BATHING, TOILETING, TRANSFERS, DRESSING AND FEEDING TUBE CARE / FEEDING/MEDICATIONS. PT HAS BEDSIDE COMMODE, FEEDING TUBE SUPPLIES, HOSPITAL BED, HOME OXYGEN, WALKER AND WHEELCHAIR. PT USES [facility] FOR MEDICAL EQUIPMENT. PT HAS [facility] FOR NURSING, OCCUPATIONAL AND PHYSICAL THERAPY AT HOME. CM DISCUSSED AVAILABILITY OF HOME HEALTH, REHAB SERVICES AND MEDICAL EQUIPMENT. PT DENIES DISCHARGE NEEDS, REPORTS PLAN TO RETURN HOME WITH [facility], REPORTS HER DAUGHTER WILL PICK HER UP FOR DISCHARGE HOME. IMPORTANT MESSAGE FROM MEDICARE PROVIDED AND EXPLAINED. CHOICE FOR [facility] SIGNED. CM RECEVIED MESSAGE FROM DAUGHTER/POA, JANIYA BLUE, WHO INFORMED CM THAT THEY WANT PT REFERRED TO [facility] AT DISCHARGE. CM SPOKE TO PT IN ROOM WHO AGREES WITH PLAN. CM CALLED [facility], , PROVIDED REFERRAL INFORMATION TO [facility] WHO WILL SCREEN PT FOR REHAB ADMISSION. CM FAXED REFERRAL TO [facility] AT [phone]. CM WAITING ADMISSION DETERMINATION FROM [facility]. District Court Administrator: Bryn Ha DCPIA - Discharge Planning Initial Assessment Updated by [id number]: Bryn Ha on 02/27/19 3:32 pm * Is the patient Alert and Oriented? Yes * How many steps to enter\exit or inside your home? NONE * PCP DR. MONTAÑO * Pharmacy [facility] * Preadmission Environment Home with Family * ADLs Partial Dependent * Partial ADLs (Assistance needed) Ambulation Bathing Dressing Medication Management Toileting * Equipment Bedside Commode Enteral Feeding and Supplies Hospital Bed Oxygen Walker Wheelchair * Other Equipment HOME OXYGEN ONLY [facility] * List name and contact numbers for known caregivers / representatives who currently or will assist patient after discharge: DEBORAH BLUE DTR/CHAPARRO, * Verbal permission to speak to the caregivers and representatives has been obtained from the patient. Yes * Community resources currently utilized Home Health * Please name any agencies selected above. [facility], NURSING, OCCUPATIONAL AND PHYSICAL THERAPY * Additional services required to return to the preadmission environment? Yes * Can the patient safely return to the preadmission environment? Yes * Has this patient been hospitalized within the prior 30 days at any hospital? Yes Coverage Notice Reviewer: [id number] Holly Ha Notice Issued Date-Time: 02/27/2019 12:50 Notice Type: Patient Choice Letter Notice Delivered To: Patient Relationship to Patient: Coverage Specialist Name: Delivery Method: HAND - Hand Delivered Cassandra Days: Prior Verbal Notification: Recipient Understood Notice: Yes Recipient Signature: Yes Med Rec Note Co-signed by Attending: Coverage Notice Comment: [facility] Reviewer: [id number] Holly Ha Notice Issued Date-Time: 02/27/2019 12:50 Notice Type: IM Discharge Notice Notice Delivered To: Patient Relationship to Patient: Coverage Specialist Name: Delivery Method: HAND - Hand Delivered Cassandra Days: Prior Verbal Notification: Recipient Understood Notice: Yes Recipient Signature: Yes Med Rec Note Co-signed by Attending: Coverage Notice Comment: DC IM 02-27-19, 1250. TB Last DP export: 02/28/19 11:00 a Patient Name: CHON LUI Page 53186 at 1420 All edits/amendments must be made on the electronic document DICTATION DATE: 02/28/191418 INVERTEBRATE PALEONTOLOGIST: NAHUN 02/28/191418 RPT#: [id number] DC DATE: STATUS: ADM IN [facility] [address] [place] [address] END OF REPORT
[2019-02-28 15:05] VITALS: BP 128/65
--- NOTE | 2019-02-28 17:11 | NUR ---
NO CHANGE IN ASSESSMENT. ALERT ADN OPRIENTED. WILL HAVE BRONCHOSCOPY AT 11:00 TOMORROW. WILL BE NPO AFTER MN TONIGHT. INSTRUCTED PATIENT (NO TUBE FEEDINGS/MEDS AFTER MN). WILL NOTIFY ONCOMING SHIFT. CL IN REACH. NO DISTRESS NOTED.
--- NOTE | 2019-02-28 19:30 | NUR ---
EVENING ROUNDS MADE. PT SITTING UP IN BED RESTING. A/O X 4. TRACH COLLAR IN PLACE. PEG TUBE TO LUQ, PATENT, DRSG CHANGED. L CHEST INFUSA PORT, KELLI C/D/I, PATENT, NS @ [facility]. SCDS ON. PT STATES SHE WOULD LIKE A SLEEPING PILL WITH HER NIGHT MEDS. NO FURTHER CONCERNS AT THIS TIME. PT AWARE TO BE NPO AFTER MIDNGIHT. BED LOWERED AND LOCKED. CL IN REACH. WILL CTM.
[2019-02-28 22:14] VITALS: BP 129/71
--- NOTE | 2019-02-28 22:25 | NUR ---
MEDS GIVEN PER PED TUBE. JEVITY 1.5 GIVEN PER PEG TUBE. TUBE PATENT. PEG DRSG CHANGED AND CLEANED. AMBIEN GIVEN FOR INSONMIA. DENIES FURTHER NEED AT THIS TIME. BED LOWERED AND LOCKED. CL IN REACH. WILL CTM.
[2019-03-01 01:01] VITALS: BP 161/78
[2019-03-01 05:16] VITALS: BP 154/77
--- NOTE | 2019-03-01 06:01 | NUR ---
PT L CHEST INFUSAPORT UNABLE TO DRAW BLOOD FROM THIS AM. PT STATED THAT IT HASNT DRAWN BLOOD IN A WHILE. FLUSHED PORT WITH NS. NO FURTHER CONCERNS AT THIS TIME BED LOWERED AND LOCKED. CL IN REACH. WILL CTM.
[2019-03-01 06:16] LABS: BASOPHILS 0 % (0-2); EOSINOPHILS 0 % (0-7); HEMATOCRIT 35.6 % (36.0-48.0); HEMOGLOBIN 11.5 g/dL (12-16); IMMATURE GRANULOCYTES 0.5 % (0-5); LYMPHOCYTES 16.1 % (15-50); MCH 28.2 pg (26.0-34.0); MCHC 32.3 g/dL (31.0-37.0); MCV 87.3 fL (80.0-100.0); MEAN PLATELET VOLUME 8.5 fL (7.4-10.4); MONOCYTES 10.6 % (2-11); NEUTROPHILS 72.8 % (40-80); PLATELET COUNT 287 10x3/uL (130-400); RBC 4.08 10x6/uL (4.00-5.40); RDW 17.9 % (11.5-14.5); WBC 6.3 10x3/uL (4.8-10.8)
[2019-03-01 06:48] LABS: ALBUMIN 2.1 g/dL (3.4-5.0); ALKALINE PHOSPHATASE 94 U/L (46-116); ALT (SGPT) 22 U/L (10-68); BILIRUBIN - TOTAL 0.18 mg/dL (0.2-1.3); CALC OSMOLALITY 270 mosm/kg (275-300); CALCIUM 8.5 mg/dL (8.5-10.1); CHLORIDE - SERUM 99 mmol/L (98-107); CREATININE - SERUM 0.4 mg/dL (0.6-1.3); GLUCOSE 82 mg/dL (74-106); POTASSIUM - SERUM 4.6 mmol/L (3.5-5.1); SODIUM 135 mmol/L (136-145); UREA NITROGEN 18 mg/dL (7-18); eGFR NON AFRICAN AMERICAN > 90 mL/min (90-120)
[2019-03-01 08:41] VITALS: BP 114/61
--- NOTE | 2019-03-01 09:18 | NUR ---
OT NOTE: PT STATING THAT SHE WAS NOT FEELING WELL; REPORTED THAT SHE GOT VERY LITTLE SLEEP LAST NIGHT. BED MOB WITH MIN ASSIST; PT INCONT OF URINE; ASSISTED WITH HYGIENE. ABLE TO AMB IN ROOM WITH RW AND MIN ASSIST. SIMPLE GROOMING TASKS WITH SET UP. TRANSFER TO CHAIR WITH CGA. BRIAN BYNRE, OTR/L
--- NOTE | 2019-03-01 09:39 | MORECARE ---
CASE MANAGEMENT DISCHARGE SUMMARY PATIENT: CHON LUI UNIT: [id number] ADM DATE: 02/25/19 AGE: 68 : 50 SEX: F ROOM/BED: D.0122 AUTHOR: NATALIA HEALY PHYSICIAN: REFERRING PHYSICIAN: JEM MANN MD DATE OF SERVICE: 03/01/19 Discharge Plan Patient Name: CHON LUI Facility: [facility]:[place] : 1950 Planned Disposition: Inpatient Rehab Anticipated Discharge Date: 02/28/19 Discharge Date: Expected LOS: 3 Initial Reviewer: [id number] Initial Review Date: 02/27/2019 Generated: 03/01/19 10:39 am Comments DCP- Discharge Planning Updated by [email or web address]: Bryn Ha on 03/01/19 8:[address] Patient Name: CHON LUI Encounter No: [id number] : 1950 Primary Insurance: NOVASYSMCR Anticipated DC Date: 02-28-2019 Planned Disposition: Inpatient Rehab External Planned Provider: [facility] CM FAXED HOSPITAL UPDATE TO [facility]. CM SPOKE TO SONJA WHO REPORTS WAITING INSURANCE AUTH. CM WAITING INSURANCE AUTHORIZATION FOR REHAB SERVICES AT [facility]. Steam Plant Operator: Bryn Ha DCP- Discharge Planning Updated by [id number]: Bryn Ha on 02/28/19 1:[address] Patient Name: CHON LUI Encounter No: [id number] : 1950 Primary Insurance: NOVASYSMCR Anticipated DC Date: 02-28-2019 Planned Disposition: Inpatient Rehab External Planned Provider: [facility] CM FAXED OCCUPATIONAL THERAPY EVALUATION TO [facility]. CM WAITING ADMISSION DETERMINATION FROM [facility] WELL INSURANCE AUTHORIZATION FOR REHAB SERVICES. Steam Plant Operator: Bryn Ha DCP- Discharge Planning Updated by [id number]: Bryn Ha on 02/28/19 10:[address] Patient Name: CHON LUI Encounter No: [id number] : 1950 Primary Insurance: NOVASYSMCR Anticipated DC Date: 02-28-2019 Planned Disposition: Inpatient Rehab External Planned Provider: [facility] DISCHARGE PLANNING NOTES: CM FAXED REFERRAL UDPATE TO [facility] AT [phone]. CM WILL FAX PHYSICAL THERAPY NOTE AND OCCUPATIONAL THERAPY EVALUATION WHEN DOCUMENTED. CM WAITING ADMISSION DETERMINATION FROM [facility] WELL INSURANCE AUTHORIZATION FOR REHAB SERVICES. Steam Plant Operator: Bryn Ha DCP- Discharge Planning Updated by [id number]: Bryn Ha on 02/27/19 2:[address] Patient Name: CHON LUI Admission Status: ER Accout number: [id number] Admission Date: 02-25-2019 : 1950 Admission Diagnosis: Attending: JEM MANN Current LOS: 2 Anticipated DC Date: 02-28-2019 Planned Disposition: Inpatient Rehab Primary Insurance: [employer] PLANNED EXTERNAL PROVIDER: [facility] Discharge Planning Comments: CM MET WITH PT IN ROOM TO DISCUSS DISCHARGE PLANNING AND NEEDS. PT REPORTS LIVING AT HOME DEPENDENT UPON HER ADULT DAUGHTER FOR BATHING, TOILETING, TRANSFERS, DRESSING AND FEEDING TUBE CARE / FEEDING/MEDICATIONS. PT HAS BEDSIDE COMMODE, FEEDING TUBE SUPPLIES, HOSPITAL BED, HOME OXYGEN, WALKER AND WHEELCHAIR. PT USES [employer] FOR MEDICAL EQUIPMENT. PT HAS [employer] [facility] FOR NURSING, OCCUPATIONAL AND PHYSICAL THERAPY AT HOME. CM DISCUSSED AVAILABILITY OF HOME HEALTH, REHAB SERVICES AND MEDICAL EQUIPMENT. PT DENIES DISCHARGE NEEDS, REPORTS PLAN TO RETURN HOME WITH [facility], REPORTS HER DAUGHTER WILL PICK HER UP FOR DISCHARGE HOME. IMPORTANT MESSAGE FROM MEDICARE PROVIDED AND EXPLAINED. CHOICE FOR [facility] SIGNED. CM RECEVIED MESSAGE FROM DAUGHTER/POA, JANIYA BLUE, WHO INFORMED CM THAT THEY WANT PT REFERRED TO [facility] AT DISCHARGE. CM SPOKE TO PT IN ROOM WHO AGREES WITH PLAN. CM CALLED [facility], , PROVIDED REFERRAL INFORMATION TO [facility] WHO WILL SCREEN PT FOR REHAB ADMISSION. CM FAXED REFERRAL TO [facility] AT [phone]. CM WAITING ADMISSION DETERMINATION FROM [facility]. Steam Plant Operator: Bryn Ha DCPIA - Discharge Planning Initial Assessment Updated by [email or web address]: Bryn Ha on 02/27/19 3:32 pm * Is the patient Alert and Oriented? Yes * How many steps to enter\exit or inside your home? NONE * PCP DR. MONTAÑO * Pharmacy [facility] * Preadmission Environment Home with Family * ADLs Partial Dependent * Partial ADLs (Assistance needed) Ambulation Bathing Dressing Medication Management Toileting * Equipment Bedside Commode Enteral Feeding and Supplies Hospital Bed Oxygen Walker Wheelchair * Other Equipment HOME OXYGEN ONLY [facility] * List name and contact numbers for known caregivers / representatives who currently or will assist patient after discharge: DEBORAH BLUE DTR/CHAPARRO, * Verbal permission to speak to the caregivers and representatives has been obtained from the patient. Yes * Community resources currently utilized Home Health * Please name any agencies selected above. [facility], NURSING, OCCUPATIONAL AND PHYSICAL THERAPY * Additional services required to return to the preadmission environment? Yes * Can the patient safely return to the preadmission environment? Yes * Has this patient been hospitalized within the prior 30 days at any hospital? Yes Coverage Notice Reviewer: [id number] Holly Ha Notice Issued Date-Time: 02/27/2019 12:50 Notice Type: Patient Choice Letter Notice Delivered To: Patient Relationship to Patient: Promos Executive Producer Name: Delivery Method: HAND - Hand Delivered Cassandra Days: Prior Verbal Notification: Recipient Understood Notice: Yes Recipient Signature: Yes Med Rec Note Co-signed by Attending: Coverage Notice Comment: [facility] Reviewer: [id number] Ha Notice Issued Date-Time: 02/27/2019 12:50 Notice Type: IM Discharge Notice Notice Delivered To: Patient Relationship to Patient: Promos Executive Producer Name: Delivery Method: HAND - Hand Delivered Cassandra Days: Prior Verbal Notification: Recipient Understood Notice: Yes Recipient Signature: Yes Med Rec Note Co-signed by Attending: Coverage Notice Comment: FRANCISCO 02-27-19, 1250. TB Last DP export: 02/28/19 1:20 p Patient Name: CHON LUI Page [id number] at 0939 All edits/amendments must be made on the electronic document DICTATION DATE: 03/01/19937 VISITOR SERVICES REPRESENTATIVE: NAHUN 03/01/19937 RPT#: [id number] DC DATE: STATUS: ADM IN [facility] [address] [place] [address] END OF REPORT
--- NOTE | 2019-03-01 15:00 | NUR ---
Nutrition follow-up: Pt receiving Jevity 1.5 mary - 4 cans per day per bolus feeding regimen Pt tolerating bolus TF at this time Labs reviewed WT: 120# RDN following.
[2019-03-01 15:46] VITALS: BP 119/66
--- NOTE | 2019-03-01 19:30 | NUR ---
EVENING ROUNDS MADE. PT LAYING IN BED RESTING. DENIES PAIN AT THIS TIME. NO FUTHER CONCERNS. FALL PRECAUTIONS IN PLACE. BED LOWERED AND LOCKED. CL IN REACH. WILL CTM
[2019-03-01 20:00] VITALS: BP 98/50
--- NOTE | 2019-03-01 22:14 | NUR ---
VITALS STABLE. MEDS GIVEN VIA PEG TUBE. PEG PATENT. PT C/O HEADACHE. TYLENOL GIVEN. AMBIEN GIVEN FOR SLEEP. DRSG CHANGED, C/D/I. PT ASSISTED UP IN BED. NO FURTHER CONCERNS AT THIS TIME. TRACH COLLAR IN PLACE. FALL PRECAUTIONS IN PLACE. BED LOWERED AND LOCKED. CL IN REACH. WILL CTM.
--- NOTE | 2019-03-01 22:16 | NUR ---
RESP IN ROOM.
[2019-03-02] VITALS: BP 119/54
--- NOTE | 2019-03-02 02:55 | NUR ---
pt requested to have trach suctioned. resp to suction trach. no further concerns at this time.
[2019-03-02 04:00] VITALS: BP 117/63
[2019-03-02 06:16] LABS: BASOPHILS 0 % (0-2); EOSINOPHILS 0 % (0-7); HEMATOCRIT 37.3 % (36.0-48.0); HEMOGLOBIN 12.1 g/dL (12-16); IMMATURE GRANULOCYTES 0.2 % (0-5); LYMPHOCYTES 5.2 % (15-50); MCHC 32.4 g/dL (31.0-37.0); MCV 86.3 fL (80.0-100.0); MEAN PLATELET VOLUME 8.9 fL (7.4-10.4); MONOCYTES 2.8 % (2-11); NEUTROPHILS 91.8 % (40-80); PLATELET COUNT 272 10x3/uL (130-400); RBC 4.32 10x6/uL (4.00-5.40); RDW 18.2 % (11.5-14.5)
[2019-03-02 06:19] LABS: ALBUMIN 2.2 g/dL (3.4-5.0); ALKALINE PHOSPHATASE 93 U/L (46-116); ALT (SGPT) 22 U/L (10-68); BILIRUBIN - TOTAL 0.26 mg/dL (0.2-1.3); CALC OSMOLALITY 273 mosm/kg (275-300); CALCIUM 8.6 mg/dL (8.5-10.1); CARBON DIOXIDE 28.2 mmol/L (21.0-32.0); CHLORIDE - SERUM 98 mmol/L (98-107); CREATININE - SERUM 0.5 mg/dL (0.6-1.3); POTASSIUM - SERUM 4.4 mmol/L (3.5-5.1); PROTEIN - SERUM 6.2 g/dL (6.4-8.2); SODIUM 134 mmol/L (136-145); UREA NITROGEN 18 mg/dL (7-18); eGFR NON AFRICAN AMERICAN > 90 mL/min (90-120)
[2019-03-02 06:32] LABS: GLUCOSE 179 mg/dL (74-106)
[2019-03-02 06:36] LABS: WBC 8.3 10x3/uL (4.8-10.8)
--- NOTE | 2019-03-02 07:35 | NUR ---
PT DID NOT WANT TO BE SUCTIONED THIS AM.
[2019-03-02 12:25] VITALS: BP 97/48
--- NOTE | 2019-03-02 12:32 | NUR ---
OT NOTE: PT VERY WEAK TODAY. BED MOB WITH MIN ASSIST; AROM EXS WHILE SITTING ON EOB. ATTEMPTED IN ROOM AMBULATION WITH WALKER, HOWEVER, PT ONLY ABLE TO TAKE APPROX 5 STEPS... STATED THAT SHE WAS TOO WEAK AND HAD TO SIT DOWN. PROVIDED WASHCLOTH FOR FACE AND HANDS AND PT ABLE TO WASH WITH SET UP. CONT EXS TO IMPROVE STRENGTH AND ENDURANCE. BRIAN BYRNE, OTR/L
[2019-03-02] MEDS ORDERED: LEVOFLOXAC750 MG/150 IV (13:59)
[2019-03-02] MEDS ORDERED: FLAGYL 500500 MG/100 IV (13:59)
[2019-03-02] MEDS ORDERED: BROVANA15 MCG/2 M INH (14:00)
[2019-03-02] MEDS ORDERED: IPRAT-ALBUT 0.5-3 ML UPD (14:01)
[2019-03-02] MEDS ORDERED: PULMICORT0.5 MG/21 UPD (14:01)
[2019-03-02] MEDS ORDERED: ROBITUSSIN DM 110 ML PO (14:01)
[2019-03-02] MEDS ORDERED: PREDNISONE10 MG PO (14:03)
--- NOTE | 2019-03-02 14:49 | MORECARE ---
CASE MANAGEMENT DISCHARGE SUMMARY PATIENT: CHON LUI UNIT: [id number] ADM DATE: 02/25/19 AGE: 68 : 50 SEX: F ROOM/BED: D.4307 AUTHOR: NATALIA EHALY PHYSICIAN: REFERRING PHYSICIAN: JEM MANN MD DATE OF SERVICE: 03/02/19 Discharge Plan Patient Name: CHON LUI Facility: [facility]:[place] : 1950 Planned Disposition: Inpatient Rehab Anticipated Discharge Date: 03/02/19 Discharge Date: Expected LOS: 5 Initial Reviewer: [id number] Initial Review Date: 02/27/2019 Generated: 03/02/19 3:49 pm DCP- Discharge Planning Updated by [email or web address]: Bryn Ha on 03/01/19 8:[address] Patient Name: CHON LUI Encounter No: [id number] : 1950 Primary Insurance: NOVASYSMCR Anticipated DC Date: 02-28-2019 Planned Disposition: Inpatient Rehab External Planned Provider: [facility] INPAT[facility] CM FAXED HOSPITAL UPDATE TO [facility]. CM SPOKE TO SONJA WHO REPORTS WAITING INSURANCE AUTH. CM WAITING INSURANCE AUTHORIZATION FOR REHAB SERVICES AT [facility]. Database Security Administrator: Bryn Ha DCP- Discharge Planning Updated by [id number]: Bryn Ha on 02/28/19 1:[address] Patient Name: CHON LUI Encounter No: [id number] : 1950 Primary Insurance: NOVASYSMCR Anticipated DC Date: 02-28-2019 Planned Disposition: Inpatient Rehab External Planned Provider: [facility] CM FAXED OCCUPATIONAL THERAPY EVALUATION TO [facility]. CM WAITING ADMISSION DETERMINATION FROM [facility] INPAT[facility] WELL INSURANCE AUTHORIZATION FOR REHAB SERVICES. Database Security Administrator: Bryn Ha DCP- Discharge Planning Updated by [id number]: Bryn Ha on 02/28/19 10:[address] Patient Name: CHON LUI Encounter No: [id number] : 1950 Primary Insurance: NOVASYSMCR Anticipated DC Date: 02-28-2019 Planned Disposition: Inpatient Rehab External Planned Provider: [facility] DISCHARGE PLANNING NOTES: CM FAXED REFERRAL UDPATE TO [facility] AT [phone]. CM WILL FAX PHYSICAL THERAPY NOTE AND OCCUPATIONAL THERAPY EVALUATION WHEN DOCUMENTED. CM WAITING ADMISSION DETERMINATION FROM [facility] INPATIENT RE[facility] WELL INSURANCE AUTHORIZATION FOR REHAB SERVICES. Database Security Administrator: Bryn Ha DCP- Discharge Planning Updated by [id number]: Bryn Ha on 02/27/19 2:[address] Patient Name: CHON LUI Admission Status: ER Accout number: [id number] Admission Date: 02-25-2019 : 1950 Admission Diagnosis: Attending: JEM MANN Current LOS: 2 Anticipated DC Date: 02-28-2019 Planned Disposition: Inpatient Rehab Primary Insurance: [employer] PLANNED EXTERNAL PROVIDER: [facility] Discharge Planning Comments: CM MET WITH PT IN ROOM TO DISCUSS DISCHARGE PLANNING AND NEEDS. PT REPORTS LIVING AT HOME DEPENDENT UPON HER ADULT DAUGHTER FOR BATHING, TOILETING, TRANSFERS, DRESSING AND FEEDING TUBE CARE / FEEDING/MEDICATIONS. PT HAS BEDSIDE COMMODE, FEEDING TUBE SUPPLIES, HOSPITAL BED, HOME OXYGEN, WALKER AND WHEELCHAIR. PT USES [employer] FOR MEDICAL EQUIPMENT. PT HAS [employer] [place] [employer] FOR NURSING, OCCUPATIONAL AND PHYSICAL THERAPY AT HOME. CM DISCUSSED AVAILABILITY OF HOME HEALTH, REHAB SERVICES AND MEDICAL EQUIPMENT. PT DENIES DISCHARGE NEEDS, REPORTS PLAN TO RETURN HOME WITH [employer] [facility], REPORTS HER DAUGHTER WILL PICK HER UP FOR DISCHARGE HOME. IMPORTANT MESSAGE FROM MEDICARE PROVIDED AND EXPLAINED. CHOICE FOR [facility] SIGNED. CM RECEVIED MESSAGE FROM DAUGHTER/POA, JANIYA BLUE, WHO INFORMED CM THAT THEY WANT PT REFERRED TO [facility]PAT[facility] AT DISCHARGE. CM SPOKE TO PT IN ROOM WHO AGREES WITH PLAN. [facility], , PROVIDED REFERRAL INFORMATION TO [facility] WHO WILL SCREEN PT FOR REHAB ADMISSION. CM FAXED REFERRAL TO [facility] AT [phone]. CM WAITING ADMISSION DETERMINATION FROM [facility] INPATIENT RE[facility]. Database Security Administrator: Bryn Ha DCPIA - Discharge Planning Initial Assessment Updated by [id number]: Bryn Ha on 02/27/19 3:32 pm * Is the patient Alert and Oriented? Yes * How many steps to enter\exit or inside your home? NONE * PCP DR. MONTAÑO * Pharmacy [facility] * Preadmission Environment Home with Family * ADLs Partial Dependent * Partial ADLs (Assistance needed) Ambulation Bathing Dressing Medication Management Toileting * Equipment Bedside Commode Enteral Feeding and Supplies Hospital Bed Oxygen Walker Wheelchair * Other Equipment HOME OXYGEN ONLY [facility] * List name and contact numbers for known caregivers / representatives who currently or will assist patient after discharge: DEBORAH BLUE DTR/CHAPARRO, * Verbal permission to speak to the caregivers and representatives has been obtained from the patient. Yes * Community resources currently utilized Home Health * Please name any agencies selected above. [facility], NURSING, OCCUPATIONAL AND PHYSICAL THERAPY * Additional services required to return to the preadmission environment? Yes * Can the patient safely return to the preadmission environment? Yes * Has this patient been hospitalized within the prior 30 days at any hospital? Yes Coverage Notice Reviewer: [id number] Holly Ha Notice Issued Date-Time: 02/27/2019 12:50 Notice Type: Patient Choice Letter Notice Delivered To: Patient Relationship to Patient: Pipefitter Welder Name: Delivery Method: HAND - Hand Delivered Cassandra Days: Prior Verbal Notification: Recipient Understood Notice: Yes Recipient Signature: Yes Med Rec Note Co-signed by Attending: Coverage Notice Comment: [facility] Reviewer: [id number] Ha Notice Issued Date-Time: 02/27/2019 12:50 Notice Type: IM Discharge Notice Notice Delivered To: Patient Relationship to Patient: Pipefitter Welder Name: Delivery Method: HAND - Hand Delivered Cassandra Days: Prior Verbal Notification: Recipient Understood Notice: Yes Recipient Signature: Yes Med Rec Note Co-signed by Attending: Coverage Notice Comment: FRANCISCO IM 02-27-19, 1250. TB Last DP export: 03/01/19 8:39 a Patient Name: CHON LUI Page 70910 at 1449 All edits/amendments must be made on the electronic document DICTATION DATE: 03/02/19 1449 PRINTING BINDERY ASSISTANT: NAHUN 03/02/19 1449 RPT#: [id number] DC DATE: STATUS: ADM IN [facility] [address] [place] [address] END OF REPORT
--- NOTE | 2019-03-02 15:09 | MORECARE ---
CASE MANAGEMENT DISCHARGE SUMMARY PATIENT: CHON LUI UNIT: [id number] ADM DATE: 02/25/19 AGE: 68 : 50 SEX: F ROOM/BED: D.5693 AUTHOR: NATALIA HEALY PHYSICIAN: REFERRING PHYSICIAN: JEM MANN MD DATE OF SERVICE: 03/02/19 Discharge Plan Patient Name: CHON LUI Facility: [facility]:[place] : 1950 Planned Disposition: Inpatient Rehab Anticipated Discharge Date: 03/02/19 Discharge Date: Expected LOS: 5 Initial Reviewer: [id number] Initial Review Date: 02/27/2019 Generated: 03/02/19 4:08 pm DCP- Discharge Planning Updated by [id number]: Bryn Ha on 03/01/19 8:[address] Patient Name: CHON LUI Encounter No: [id number] : 1950 Primary Insurance: NOVASYSMCR Anticipated DC Date: 02-28-2019 Planned Disposition: Inpatient Rehab External Planned Provider: [facility] INPATIENT REH[facility] CM FAXED HOSPITAL UPDATE TO [facility]PAT[facility]. CM SPOKE TO SONJA WHO REPORTS WAITING INSURANCE AUTH. CM WAITING INSURANCE AUTHORIZATION FOR REHAB SERVICES AT [facility]. Catering Assistant: Bryn Ha DCP- Discharge Planning Updated by [id number]: Bryn Ha on 02/28/19 1:[address] Patient Name: CHON LUI Encounter No: [id number] : 1950 Primary Insurance: NOVASYSMCR Anticipated DC Date: 02-28-2019 Planned Disposition: Inpatient Rehab External Planned Provider: [facility] IN[facility] CM FAXED OCCUPATIONAL THERAPY EVALUATION TO [facility]. CM WAITING ADMISSION DETERMINATION FROM [facility] INPAT[facility] WELL INSURANCE AUTHORIZATION FOR REHAB SERVICES. Catering Assistant: Bryn Ha DCP- Discharge Planning Updated by [id number]: Bryn Ha on 02/28/19 10:[address] Patient Name: CHON LUI Encounter No: [id number] : 1950 Primary Insurance: NOVASYSMCR Anticipated DC Date: 02-28-2019 Planned Disposition: Inpatient Rehab External Planned Provider: [facility] INPAT[facility] DISCHARGE PLANNING NOTES: CM FAXED REFERRAL UDPATE TO [facility] AT [phone]. CM WILL FAX PHYSICAL THERAPY NOTE AND OCCUPATIONAL THERAPY EVALUATION WHEN DOCUMENTED. CM WAITING ADMISSION DETERMINATION FROM [facility] INPATIENT REH[facility] WELL INSURANCE AUTHORIZATION FOR REHAB SERVICES. Catering Assistant: Bryn Ha DCP- Discharge Planning Updated by [id number]: Bryn Ha on 02/27/19 2:[address] Patient Name: CHON LUI Admission Status: ER Accout number: [id number] Admission Date: 02-25-2019 : 1950 Admission Diagnosis: Attending: JEM MANN Current LOS: 2 Anticipated DC Date: 02-28-2019 Planned Disposition: Inpatient Rehab Primary Insurance: [employer] PLANNED EXTERNAL PROVIDER: [facility] Discharge Planning Comments: CM MET WITH PT IN ROOM TO DISCUSS DISCHARGE PLANNING AND NEEDS. PT REPORTS LIVING AT HOME DEPENDENT UPON HER ADULT DAUGHTER FOR BATHING, TOILETING, TRANSFERS, DRESSING AND FEEDING TUBE CARE / FEEDING/MEDICATIONS. PT HAS BEDSIDE COMMODE, FEEDING TUBE SUPPLIES, HOSPITAL BED, HOME OXYGEN, WALKER AND WHEELCHAIR. PT USES [employer] FOR MEDICAL EQUIPMENT. PT HAS [employer] [place] [employer] FOR NURSING, OCCUPATIONAL AND PHYSICAL THERAPY AT HOME. CM DISCUSSED AVAILABILITY OF HOME HEALTH, REHAB SERVICES AND MEDICAL EQUIPMENT. PT DENIES DISCHARGE NEEDS, REPORTS PLAN TO RETURN HOME WITH [employer] [facility], REPORTS HER DAUGHTER WILL PICK HER UP FOR DISCHARGE HOME. IMPORTANT MESSAGE FROM MEDICARE PROVIDED AND EXPLAINED. CHOICE FOR [employer] [facility] SIGNED. CM RECEVIED MESSAGE FROM DAUGHTER/POA, JANIYA BLUE, WHO INFORMED CM THAT THEY WANT PT REFERRED TO [facility] INPATIENT [facility] AT DISCHARGE. CM SPOKE TO PT IN ROOM WHO AGREES WITH PLAN. CM CALLED [facility], , PROVIDED REFERRAL INFORMATION TO [facility] WHO WILL SCREEN PT FOR REHAB ADMISSION. CM FAXED REFERRAL TO [facility] AT [phone]. CM WAITING ADMISSION DETERMINATION FROM [facility] INPATIENT RE[facility]. Catering Assistant: Bryn Ha DCPIA - Discharge Planning Initial Assessment Updated by [id number]: Bryn Ha on 02/27/19 3:32 pm * Is the patient Alert and Oriented? Yes * How many steps to enter\exit or inside your home? NONE * PCP DR. MONTAÑO * Pharmacy [facility] * Preadmission Environment Home with Family * ADLs Partial Dependent * Partial ADLs (Assistance needed) Ambulation Bathing Dressing Medication Management Toileting * Equipment Bedside Commode Enteral Feeding and Supplies Hospital Bed Oxygen Walker Wheelchair * Other Equipment HOME OXYGEN ONLY [facility] * List name and contact numbers for known caregivers / representatives who currently or will assist patient after discharge: DEBORAH BLUE DTR/CHAPARRO, * Verbal permission to speak to the caregivers and representatives has been obtained from the patient. Yes * Community resources currently utilized Home Health * Please name any agencies selected above. [employer] [facility], NURSING, OCCUPATIONAL AND PHYSICAL THERAPY * Additional services required to return to the preadmission environment? Yes * Can the patient safely return to the preadmission environment? Yes * Has this patient been hospitalized within the prior 30 days at any hospital? Yes Coverage Notice Reviewer: [email or web address] Holly Ha Notice Issued Date-Time: 02/27/2019 12:50 Notice Type: Patient Choice Letter Notice Delivered To: Patient Relationship to Patient: Heel Seat Fitter Machine Name: Delivery Method: HAND - Hand Delivered Cassandra Days: Prior Verbal Notification: Recipient Understood Notice: Yes Recipient Signature: Yes Med Rec Note Co-signed by Attending: Coverage Notice Comment: [employer] [facility] Reviewer: [id number] Ha Notice Issued Date-Time: 02/27/2019 12:50 Notice Type: IM Discharge Notice Notice Delivered To: Patient Relationship to Patient: Heel Seat Fitter Machine Name: Delivery Method: HAND - Hand Delivered Cassandra Days: Prior Verbal Notification: Recipient Understood Notice: Yes Recipient Signature: Yes Med Rec Note Co-signed by Attending: Coverage Notice Comment: FRANCISCO IM 02-27-19, 1250. TB Last DP export: 03/02/19 1:49 p Patient Name: CHON LUI Page 74196 at 1509 All edits/amendments must be made on the electronic document DICTATION DATE: 03/02/19 1508 BUFFER INFLATED PAD: NAHUN 03/02/19 1508 RPT#: [id number] DC DATE: STATUS: ADM IN [facility] [address] [place] [address] END OF REPORT
--- NOTE | 2019-03-02 15:20 | MORECARE ---
CASE MANAGEMENT DISCHARGE SUMMARY PATIENT: CHON LUI UNIT: [id number] ADM DATE: 02/25/19 AGE: 68 : 50 SEX: F ROOM/BED: D.2510 AUTHOR: MONET,DOC PHYSICIAN: REFERRING PHYSICIAN: JEM MANN MD DATE OF SERVICE: 03/02/19 Discharge Plan Patient Name: CHON LUI Facility: [facility]:[place] : 1950 Planned Disposition: Inpatient Rehab Anticipated Discharge Date: 03/02/19 Discharge Date: Expected LOS: 5 Initial Reviewer: [id number] Initial Review Date: 02/27/2019 Generated: 03/02/19 4:19 pm Comments DCP- Discharge Planning Updated by [id number]: Bryn Ha on 03/02/19 2:[address] Patient Name: CHON LUI Encounter No: [id number] : 1950 Primary Insurance: NOVASYSMCR Anticipated DC Date: 03-02-2019 Planned Disposition: Inpatient Rehab External Planned Provider: [facility] DCP follow-up note: CM RECEIVED CALL FROM [facility], PT ACCEPTED, HAS INSURANCE AUTHORIZATION. CM NOTIFED PT WHO IS IN AGREEMENT WITH DISCHARGE TO REHAB TODAY. IMPORTANT MESSAGE FROM MEDICARE PROVIDED AND EXPLAINED. CM NOTIFIED DR PRUITT WHO IS IN AGREEMENT WITH DISCHARGE TO REHAB TODAY. CM NOTIFIED PEPPER BARNARD. CM FAXED DISCHARGE INFORMATION TO [facility] AT [phone]. JOCKEY AGENT NURSE NOTIFIED. NURSE REPORT TO BE CALLED TO [facility] AT [phone]. PT TO ADMIT TO ROOM 312. VAN GAS PLANT DISPATCHER AT 1530 HOURS. Bryn Ha CASE ROCIO DCP- Discharge Planning Updated by [id number]: Bryn Ha on 03/01/19 8:[address] Patient Name: CHON LUI Encounter No: [id number] : 1950 Primary Insurance: NOVASYSMCR Anticipated DC Date: 02-28-2019 Planned Disposition: Inpatient Rehab External [facility] CM FAXED HOSPITAL UPDATE [facility]. CM SPOKE TO SONJA WHO REPORTS WAITING INSURANCE AUTH. CM WAITING INSURANCE AUTHORIZATION FOR REHAB SERVICES AT [facility]. Insurance Examiner: Bryn Ha DCP- Discharge Planning Updated by [id number]: Bryn Ha on 02/28/19 1:[address] Patient Name: CHON LUI Encounter No: [id number] : 1950 Primary Insurance: NOVASYSMCR Anticipated DC Date: 02-28-2019 Planned Disposition: Inpatient Rehab External Planned Provider: [facility] CM FAXED OCCUPATIONAL THERAPY EVALUATION TO [facility]. CM WAITING ADMISSION DETERMINATION FROM [facility] WELL INSURANCE AUTHORIZATION FOR REHAB SERVICES. Insurance Examiner: Bryn Ha DCP- Discharge Planning Updated by [id number]: Bryn Ha on 02/28/19 10:[address] Patient Name: CHON LUI Encounter No: [id number] : 1950 Primary Insurance: NOVASYSMCR Anticipated DC Date: 02-28-2019 Planned Disposition: Inpatient Rehab External Planned Provider: [facility] DISCHARGE PLANNING NOTES: CM FAXED REFERRAL UDPATE TO [facility] AT [phone]. CM WILL FAX PHYSICAL THERAPY NOTE AND OCCUPATIONAL THERAPY EVALUATION WHEN DOCUMENTED. CM WAITING ADMISSION DETERMINATION FROM [facility] WELL INSURANCE AUTHORIZATION FOR REHAB SERVICES. Insurance Examiner: Bryn Ha DCP- Discharge Planning Updated by [id number]: Bryn Ha on 02/27/19 2:[address] Patient Name: CHON LUI Admission Status: ER Accout number: [id number] Admission Date: 02-25-2019 : 1950 Admission Diagnosis: Attending: JEM MANN Current LOS: 2 Anticipated DC Date: 02-28-2019 Planned Disposition: Inpatient Rehab Primary Insurance: NOVASYSMCR PLANNED EXTERNAL PROVIDER: ON LICENSE OF [facility] Discharge Planning Comments: CM MET WITH PT IN ROOM TO DISCUSS DISCHARGE PLANNING AND NEEDS. PT REPORTS LIVING AT HOME DEPENDENT UPON HER ADULT DAUGHTER FOR BATHING, TOILETING, TRANSFERS, DRESSING AND FEEDING TUBE CARE / FEEDING/MEDICATIONS. PT HAS BEDSIDE COMMODE, FEEDING TUBE SUPPLIES, HOSPITAL BED, HOME OXYGEN, WALKER AND WHEELCHAIR. PT USES [employer] FOR MEDICAL EQUIPMENT. PT HAS [facility] FOR NURSING, OCCUPATIONAL AND PHYSICAL THERAPY AT HOME. CM DISCUSSED AVAILABILITY OF HOME HEALTH, REHAB SERVICES AND MEDICAL EQUIPMENT. PT DENIES DISCHARGE NEEDS, REPORTS PLAN TO RETURN HOME WITH [facility], REPORTS HER DAUGHTER WILL PICK HER UP FOR DISCHARGE HOME. IMPORTANT MESSAGE FROM MEDICARE PROVIDED AND EXPLAINED. CHOICE FOR [facility] SIGNED. CM RECEVIED MESSAGE FROM DAUGHTER/POA, JANIYA BLUE, WHO INFORMED CM THAT THEY WANT PT REFERRED TO [facility] AT DISCHARGE. CM SPOKE TO PT IN ROOM WHO AGREES WITH PLAN. CM CALLED ON LICENSE OF [facility], , PROVIDED REFERRAL INFORMATION TO EDWARD WHO WILL SCREEN PT FOR REHAB ADMISSION. CM FAXED REFERRAL TO [facility] AT [phone]. CM WAITING ADMISSION DETERMINATION FROM [facility]. Insurance Examiner: Bryn Ha [facility] - Discharge Planning Initial Assessment Updated by [id number]: Bryn Ha on 02/27/19 3:32 pm * Is the patient Alert and Oriented? Yes * How many steps to enter\exit or inside your home? NONE * PCP DR. MONTAÑO * Pharmacy [facility] * Preadmission Environment Home with Family * ADLs Partial Dependent * Partial ADLs (Assistance needed) Ambulation Bathing Dressing Medication Management Toileting * Equipment Bedside Commode Enteral Feeding and Supplies Hospital Bed Oxygen Walker Wheelchair * Other Equipment HOME OXYGEN ONLY [facility] * List name and contact numbers for known caregivers / representatives who currently or will assist patient after discharge: DEBORAH BLUEBERNADETTER/DARRELAdilene, * Verbal permission to speak to the caregivers and representatives has been obtained from the patient. Yes * Community resources currently utilized Home Health * Please name any agencies selected above. [facility], NURSING, OCCUPATIONAL AND PHYSICAL THERAPY * Additional services required to return to the preadmission environment? Yes * Can the patient safely return to the preadmission environment? Yes * Has this patient been hospitalized within the prior 30 days at any hospital? Yes External Providers [facility] Next Contact Date: 02/27/2019 Service Request Date: Service Type: Resolution: Reviewer: Comments: Coverage Notice Reviewer: [id number] - Bryn Ha Notice Issued Date-Time: 02/27/2019 12:50 Notice Type: Patient Choice Letter Notice Delivered To: Patient Relationship to Patient: Transonic Engineer Name: Delivery Method: HAND - Hand Delivered Cassandra Days: Prior Verbal Notification: Recipient Understood Notice: Yes Recipient Signature: Yes Med Rec Note Co-signed by Attending: Coverage Notice Comment: [facility] Reviewer: [id number] Holly Ha Notice Issued Date-Time: 02/27/2019 12:50 Notice Type: IM Discharge Notice Notice Delivered To: Patient Relationship to Patient: Transonic Engineer Name: Delivery Method: HAND - Hand Delivered Cassandra Days: Prior Verbal Notification: Recipient Understood Notice: Yes Recipient Signature: Yes Med Rec Note Co-signed by Attending: Coverage Notice Comment: DC IM 02-27-19, 1250. TB Reviewer: [id number] Holly Ha Notice Issued Date-Time: 03/02/2019 9:55 Notice Type: IM Discharge Notice Notice Delivered To: Patient Relationship to Patient: Transonic Engineer Name: Delivery Method: HAND - Hand Delivered Cassandra Days: Prior Verbal Notification: Recipient Understood Notice: Yes Recipient Signature: Yes Med Rec Note Co-signed by Attending: Coverage Notice Comment: Last DP export: 03/02/19 2:09 p Patient Name: CHON LUI Page 02128 at 1520 All edits/amendments must be made on the electronic document DICTATION DATE: 03/02/191518 FUNERAL PRE ARRANGEMENT SPECIALIST: NAHUN 03/02/191518 RPT#: [id number] DC DATE: STATUS: ADM IN [facility] [address] [place] [address] END OF REPORT
[2019-03-02 16:08] LABS: ACID FAST SMEAR Negative (()); AFB SPECIMEN PROCESSING Concentration (())
== END 2019-03-02 15:56 | disposition home or self-care (01) | DRG 177 ==
LOC: D.ER 18:40 → D.M2 22:22
PROVIDERS: Emergency Medicine; Family Medicine; Internal Medicine Pulmonary Disease; ADMIT Family Medicine; ATTEND Family Medicine
PROC: 0B968ZZ Drainage of Right Lower Lobe Bronchus, Via Natural or Artificial Opening Endoscopic (ICD-10-PCS; 2019-03-01)
PROC: 0B9B8ZZ Drainage of Left Lower Lobe Bronchus, Via Natural or Artificial Opening Endoscopic (ICD-10-PCS; principal; 2019-03-01 11:33)
DX: J69.0 Pneumonitis due to inhalation of food and vomit (principal); E43 Unspecified severe protein-calorie malnutrition; J96.21 Acute and chronic respiratory failure with hypoxia; Z68.1 Body mass index [BMI] 19.9 or less, adult; C34.90 Malignant neoplasm of unspecified part of unspecified bronchus or lung; J44.1 Chronic obstructive pulmonary disease with (acute) exacerbation; I10 Essential (primary) hypertension; Z93.0 Tracheostomy status; K21.9 Gastro-esophageal reflux disease without esophagitis; D64.9 Anemia, unspecified

== ENCOUNTER 2019-03-19 17:52 | Inpatient (IN) | payer OTHER ==
[~2019-03-19] VITALS: Ht 160 cm; Wt 54.4 kg
[~2019-03-19 17:52] MED LIST changes: +BROVANA15 MCG/2 M INH; +FLAGYL 500500 MG/100 IV; +LEVOFLOXAC750 MG/150 IV; +PULMICORT0.5 MG/21 UPD; +ROBITUSSIN DM 110 ML PO; +TIROSINT13 MCG PEG
[2019-03-19 18:28] LABS: BASOPHILS 0.2 % (0-2); EOSINOPHILS 0.4 % (0-7); HEMATOCRIT 31.6 % (36.0-48.0); HEMOGLOBIN 10.7 g/dL (12-16); IMMATURE GRANULOCYTES 0.6 % (0-5); LYMPHOCYTES 16.6 % (15-50); MCH 28.7 pg (26.0-34.0); MCHC 33.9 g/dL (31.0-37.0); MCV 84.7 fL (80.0-100.0); MEAN PLATELET VOLUME 8.1 fL (7.4-10.4); MONOCYTES 12.7 % (2-11); NEUTROPHILS 69.5 % (40-80); RBC 3.73 10x6/uL (4.00-5.40); RDW 19.8 % (11.5-14.5); WBC 4.8 10x3/uL (4.8-10.8)
[2019-03-19 18:31] LABS: PLATELET COUNT 216 10x3/uL (130-400)
[2019-03-19 18:50] LABS: APPEARANCE CLEAR (CLEAR); COLOR YELLOW (YELLOW); SPECIFIC GRAVITY 1.005 (1.005-1.020)
[2019-03-19 18:51] LABS: BILIRUBIN NEGATIVE (NEGATIVE); GLUCOSE NEGATIVE (NEGATIVE); KETONE NEGATIVE (NEGATIVE); NITRITE NEGATIVE (NEGATIVE); PROTEIN NEGATIVE (NEGATIVE); UROBILINOGEN NORMAL (NORMAL)
[2019-03-19 19:04] LABS: ALBUMIN 2.3 g/dL (3.4-5.0); ALKALINE PHOSPHATASE 95 U/L (46-116); ALT (SGPT) 31 U/L (10-68); BILIRUBIN - TOTAL 0.34 mg/dL (0.2-1.3); CALC OSMOLALITY 262 mosm/kg (275-300); CALCIUM 8.6 mg/dL (8.5-10.1); CARBON DIOXIDE 27.4 mmol/L (21.0-32.0); CHLORIDE - SERUM 96 mmol/L (98-107); CREATININE - SERUM 0.4 mg/dL (0.6-1.3); POTASSIUM - SERUM 4.6 mmol/L (3.5-5.1); PROTEIN - SERUM 6.5 g/dL (6.4-8.2); SODIUM 131 mmol/L (136-145); UREA NITROGEN 12 mg/dL (7-18); eGFR NON AFRICAN AMERICAN > 90 mL/min (90-120)
[2019-03-19 19:05] LABS: GLUCOSE 90 mg/dL (74-106)
--- NOTE | 2019-03-19 19:05 | NUR ---
PT RESTING ON BED. NO S/S OF ACUTE DISTRESS NOTED. PT FAMILY AT BEDSIDE.
[2019-03-19 19:41] VITALS: BP 118/52
[2019-03-19 20:00] LABS: CREATINE KINASE 12 UL (21-215); MAGNESIUM - SERUM 2.1 mg/dL (1.8-2.4); PRO BNP 656 pg/mL (0-125)
[2019-03-19 20:09] LABS: TROPONIN-I < 0.017 ng/mL (0.000-0.060)
[2019-03-19] MEDS ORDERED: LASIX 40 M40 MG/5 ML PT (20:22)
--- NOTE | 2019-03-19 20:40 | NUR ---
MEDS ADMINISTERED ORDERED PER EMAR.
--- NOTE | 2019-03-19 21:30 | NUR ---
RECEIVED PT FROM ED. A/O X4. IV SITE TO THE RT HAND, SALINE LOCK, DRESSING INTACT. TRACHEOSTOMY AND PEG TUBE IN PLACE. IV SITE TO THE RT HAND, SALINE LOCK AND DRESSING INTACT. DENIES PAIN OR NEEDS AT THIS TIME. CONTINUE WITH PLAN OF CARE.
[2019-03-19 21:42] VITALS: BP 86/56; BMI 21.3
--- NOTE | 2019-03-19 21:55 | NUR ---
SPOKE WITH HANANE AT [facility] WHO STATED HE WILL SEND A COPY OF THE PATIENT'S MEDS SHORTLY
[2019-03-20 00:17] VITALS: BP 112/55
[2019-03-20 04:31] VITALS: BP 102/49
--- NOTE | 2019-03-20 07:30 | NUR ---
TALKED WITH CIRILO, FICTION AND NONFICTION AUTHOR REGAURDING PT FEEDING TUBE SCHEDULE. STATED SHE WOULD COME EVALUATE PT.
[2019-03-20 07:37] VITALS: BP 94/55
--- NOTE | 2019-03-20 08:06 | NUR ---
PT SITTING UP IN BED. RR EVEN AND UNLABORED. DENIES PAIN OR NEEDS AT THIS TIME. WILL CONTINUE TO MONITOR.
--- NOTE | 2019-03-20 08:40 | NUR ---
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 NOTIFIED NURSE AND PUT SIGNS UP.
--- NOTE | 2019-03-20 09:31 | NUR ---
CALLED RESPIRATORY FOR DEEP SUCTION PER PT REQUEST.
[2019-03-20 10:47] LABS: CARBON DIOXIDE 26.7 mmol/L (21.0-32.0); CHLORIDE - SERUM 97 mmol/L (98-107); CREATININE - SERUM 0.5 mg/dL (0.6-1.3); GLUCOSE 80 mg/dL (74-106); SODIUM 132 mmol/L (136-145); eGFR NON AFRICAN AMERICAN > 90 mL/min (90-120)
[2019-03-20 10:48] LABS: CALC OSMOLALITY 264 mosm/kg (275-300); POTASSIUM - SERUM 3.9 mmol/L (3.5-5.1); UREA NITROGEN 16 mg/dL (7-18)
[2019-03-20 10:55] LABS: BASOPHILS 0.4 % (0-2); EOSINOPHILS 0.4 % (0-7); HEMATOCRIT 33.7 % (36.0-48.0); HEMOGLOBIN 11.3 g/dL (12-16); IMMATURE GRANULOCYTES 0.7 % (0-5); LYMPHOCYTES 28.3 % (15-50); MCH 28.6 pg (26.0-34.0); MCHC 33.5 g/dL (31.0-37.0); MCV 85.3 fL (80.0-100.0); MEAN PLATELET VOLUME 8.3 fL (7.4-10.4); MONOCYTES 10.5 % (2-11); NEUTROPHILS 59.7 % (40-80); PLATELET COUNT 248 10x3/uL (130-400); RBC 3.95 10x6/uL (4.00-5.40); RDW 19.6 % (11.5-14.5); WBC 4.6 10x3/uL (4.8-10.8)
[2019-03-20 11:46] VITALS: BP 95/47
[2019-03-20 13:27] VITALS: BMI 21.2
--- NOTE | 2019-03-20 13:53 | NUR ---
UPON ENTERING ROOM, NOTICED BLOOD ON BEDSHEETS. BLOOD COMING FROM IV. IV D/C WITH CATHETER TIP INTACT. DRESSING PLACED OVER SITE, CDI.
--- NOTE | 2019-03-20 15:19 | NUR ---
I have reviewed this patient and I concur with the Shift Assessment completed by the Licensed Practical Nurse today this shift.
[2019-03-20 17:13] VITALS: Ht 160 cm; Wt 54.4 kg
--- NOTE | 2019-03-20 17:31 | NUR ---
TUBE FEEDING COMPLETE PER ORDER. PT TOLERATED WELL.
--- NOTE | 2019-03-20 19:30 | NUR ---
EVENING ROUNDS COMPLETE. VS T99.2, HR107, BP 107/53, O2 SAT 92% ON RA. PT C/O PAIN LEVEL OF 8/10. PT HAS NO IV ACCESS FOR PRN MORPHINE. WILL ATTEMPT ACCESS TO PORT IN L CHEST. NO SIGNS OF DISTRESS, PT DENIES ANY FURTHER NEEDS AT THIS TIME. WILL CONT WITH POC.
[2019-03-20 20:07] VITALS: BP 107/53
--- NOTE | 2019-03-20 22:50 | NUR ---
ACCESSED PATIENT'S PORT TO HER LEFT CHEST
[2019-03-21 01:01] VITALS: BP 99/45
--- NOTE | 2019-03-21 02:40 | NUR ---
PROVIDED TRACHE CARE CANJUNIOR PATENT
[2019-03-21 05:23] VITALS: BP 94/46
[2019-03-21 06:44] LABS: CALCIUM 8.6 mg/dL (8.5-10.1); CARBON DIOXIDE 28.7 mmol/L (21.0-32.0); CHLORIDE - SERUM 95 mmol/L (98-107); CREATININE - SERUM 0.6 mg/dL (0.6-1.3); SODIUM 131 mmol/L (136-145); eGFR NON AFRICAN AMERICAN > 90 mL/min (90-120)
[2019-03-21 06:45] LABS: CALC OSMOLALITY 268 mosm/kg (275-300); GLUCOSE 130 mg/dL (74-106); POTASSIUM - SERUM 3.1 mmol/L (3.5-5.1); UREA NITROGEN 24 mg/dL (7-18)
[2019-03-21 06:55] LABS: BASOPHILS 0.2 % (0-2); EOSINOPHILS 0.7 % (0-7); HEMATOCRIT 31.3 % (36.0-48.0); HEMOGLOBIN 10.4 g/dL (12-16); IMMATURE GRANULOCYTES 0.7 % (0-5); LYMPHOCYTES 37.3 % (15-50); MCH 28.1 pg (26.0-34.0); MCHC 33.2 g/dL (31.0-37.0); MCV 84.6 fL (80.0-100.0); MEAN PLATELET VOLUME 8.5 fL (7.4-10.4); MONOCYTES 10.2 % (2-11); NEUTROPHILS 50.9 % (40-80); PLATELET COUNT 267 10x3/uL (130-400); RDW 19.3 % (11.5-14.5); WBC 5.6 10x3/uL (4.8-10.8)
--- NOTE | 2019-03-21 07:46 | NUR ---
PT SITTING UP IN BED WITH PASSY-ROBI VALVE OFF. RESPIRATORY CALLED TO DEEP SUCTION TRACH. LEFT CHEST PORT INFUSING NS @ 50MLS/HR. DROPLET ISOLATION PRECAUTIONS IN PLACE. DENIES OTHER NEEDS AT THIS TIME. RR EVEN AND UNLABORED. WILL CONTINUE TO MONITOR.
--- NOTE | 2019-03-21 08:22 | NUR ---
POTASSIUM 3.1. BLOOD PRESSURE 95/46. LASIX HELD. HERMINIA PALAFOX, APPLICATIONS SCIENTIST PAGED.
[2019-03-21 08:50] VITALS: BP 95/46
--- NOTE | 2019-03-21 12:30 | NUR ---
FEEDING COMPLETE PER ORDER. 10MLS RESIDUAL PULLED AND REPLACED BEFORE FEEDING.
--- NOTE | 2019-03-21 13:08 | NUR ---
Nutrition Follow-up: RN reports pt tolerating TF (Jevity 1.5 1 can 4x/day + H20 flushes 90 mL before & after feeding Last BM: 03/19 per chart review Labs noted: Glu 130, K+ 3.1 Meds noted: Lasix Rec continue current TF as tolerated and d/c cardiac diet order. RD following.
--- NOTE | 2019-03-21 15:56 | NUR ---
OT NOTE: PT COMPLETED BED MOB TASKS WITH MOD A. PT COMPLETED UE AROM AXS . THANK YOU, CHADWICK BOLAÑOS
[2019-03-21 17:02] VITALS: BP 110/53
--- NOTE | 2019-03-21 17:31 | NUR ---
FEEDING COMPLETED PER ORDER. NO RESIDUAL PULLED BEFORE FEED. PT TOLERATED WELL.
--- NOTE | 2019-03-21 19:01 | MORECARE ---
CASE MANAGEMENT DISCHARGE SUMMARY PATIENT: CHON LUI UNIT: [id number] ADM DATE: 03/21/19 AGE: 68 : 50 SEX: F ROOM/BED: D.1210 AUTHOR: NATALIA HEALY PHYSICIAN: REFERRING PHYSICIAN: MARY KAY SARKAR MD DATE OF SERVICE: 03/21/19 Discharge Plan Patient Name: CHON LUI Facility: [facility]:[place] : 1950 Planned Disposition: Halfway Facility Anticipated Discharge Date: Discharge Date: Expected LOS: Initial Reviewer: [id number] Initial Review Date: 03/21/2019 Generated: 03/21/19 8:01 pm External Providers External Provider: OTHER-OTHER Next Contact Date: Service Request Date: Service Type: Resolution: Reviewer: Comments: External Provider: [facility] Next Contact Date: Service Request Date: Service Type: Resolution: Reviewer: Comments: Coverage Notice Reviewer: [id number] Holly Simpson Notice Issued Date-Time: 03/20/2019 16:59 Notice Type: Medicare Outpatient Observation Notice Notice Delivered To: Patient Relationship to Patient: Self Progress Developer Name: Delivery Method: HAND - Hand Delivered Cassandra Days: Prior Verbal Notification: Recipient Understood Notice: Yes Recipient Signature: Yes Med Rec Note Co-signed by Attending: Coverage Notice Comment: SORTO explained, signed, given, copy placed in MR Patient Name: CHON LUI Page 14680 at 1901 All edits/amendments must be made on the electronic document DICTATION DATE: 03/21/191900 GASOLINE TRACTOR OPERATOR: NAHUN 03/21/191900 RPT#: [id number] DC DATE: STATUS: ADM IN [facility] [address] [place] [address] END OF REPORT
--- NOTE | 2019-03-21 19:15 | MORECARE ---
CASE MANAGEMENT DISCHARGE SUMMARY PATIENT: CHON LUI UNIT: [id number] ADM DATE: 03/21/19 AGE: 68 : 50 SEX: F ROOM/BED: D.1210 AUTHOR: MONET,DOC PHYSICIAN: REFERRING PHYSICIAN: MARY KAY SARKAR MD DATE OF SERVICE: 03/21/19 Discharge Plan Patient Name: CHON LUI Facility: [facility]:[place] : 1950 Planned Disposition: Shelter Facility Anticipated Discharge Date: Discharge Date: Expected LOS: Initial Reviewer: [id number] Initial Review Date: 03/21/2019 Generated: 03/21/19 8:14 pm DCPIA - Discharge Planning Initial Assessment Updated by [id number]: Cassandra Ling on 03/21/19 7:08 pm * Is the patient Alert and Oriented? Yes * How many steps to enter\exit or inside your home? * Pharmacy [facility] * Preadmission Environment Home with Family * ADLs Partial Dependent * Partial ADLs (Assistance needed) Ambulation Bathing Dressing Eating Medication Management Toileting Transfers * Other Equipment WALKER, W/C, HOME 02, TRACH SUPPLIES, FEEDING SUPPLIES, BSC * List name and contact numbers for known caregivers / representatives who currently or will assist patient after discharge: MEÑO Barrera [facility] - [phone] * Verbal permission to speak to the caregivers and representatives has been obtained from the patient. Yes * Community resources currently utilized Home Health * Please name any agencies selected above. [facility] * Additional services required to return to the preadmission environment? No * Can the patient safely return to the preadmission environment? Yes * Has this patient been hospitalized within the prior 30 days at any hospital? Yes Coverage Notice Reviewer: [id number] Holly Simpson Notice Issued Date-Time: 03/20/2019 16:59 Notice Type: Medicare Outpatient Observation Notice Notice Delivered To: Patient Relationship to Patient: Self Scenic Artist Name: Delivery Method: HAND - Hand Delivered Cassandra Days: Prior Verbal Notification: Recipient Understood Notice: Yes Recipient Signature: Yes Med Rec Note Co-signed by Attending: Coverage Notice Comment: MACARIO explained, signed, given, copy placed in MR Last DP export: 03/21/19 6:01 pm Patient Name: CHON LUI Page 80787 at 1915 All edits/amendments must be made on the electronic document DICTATION DATE: 03/21/191913 VACCINE KEY CUSTOMER LEADER: NAHUN 03/21/191913 RPT#: [id number] DC DATE: STATUS: ADM IN [facility] [address] [place] [address] END OF REPORT
--- NOTE | 2019-03-21 19:20 | NUR ---
EVENING ROUNDS COMPLETE. PT LAYING IN BED. VSS, NO SIGNS OF DISTRESS. PT DENIES ANY PAIN OR NEEDS AT THIS TIME. WILL CONT WITH POC.
--- NOTE | 2019-03-21 19:22 | MORECARE ---
CASE MANAGEMENT DISCHARGE SUMMARY PATIENT: CHON LUI UNIT: [id number] ADM DATE: 03/21/19 AGE: 68 : 50 SEX: F ROOM/BED: D.1210 AUTHOR: MONET,DOC PHYSICIAN: REFERRING PHYSICIAN: MARY KAY SARKAR MD DATE OF SERVICE: 03/21/19 Discharge Plan Patient Name: CHON LUI Facility: [facility]:[place] : 1950 Planned Disposition: Penitentiary Facility Anticipated Discharge Date: Discharge Date: Expected LOS: Initial Reviewer: [id number] Initial Review Date: 03/21/2019 Generated: 03/21/19 8:21 pm Comments DCP- Discharge Planning Updated by [id number]: Cassandra Ling on 03/21/19 6:[address] Patient Name: CHON LUI Admission Status: ER Accout number: [id number] Admission Date: 03-21-2019 : 1950 Admission Diagnosis: Attending: MARY KAY SARKAR Current LOS: 1 Anticipated DC Date: Planned Disposition: Penitentiary Facility Primary Insurance: NOVGamemasterCR Discharge Planning Comments: CM received call today from patient daughter Meño MAYFIELD. Meño states that the patient needs placement in SNF and possible long-term care. Meño states that she is not able to take care of patient any longer at home. Meño states that she would like a facility that is close to [facility]. CM explained that we would work from the [facility] outward to find facility that will take a trach patient. Meño stated that if patient gets stronger and can be more independent then she will bring her back home. CM called [facility] in [place] they are not currently taking trach patients. CM sent out referral for [facility] still needing OT eval. CM will continue to follow and assist as needed with discharge planning needs. Lens Grinder Rough: Cassandra Ling DCPIA - Discharge Planning Initial Assessment Updated by [id number]: Cassandra Ling on 03/21/19 7:08 pm * Is the patient Alert and Oriented? Yes * How many steps to enter\exit or inside your home? * Pharmacy [facility] * Preadmission Environment Home with Family * ADLs Partial Dependent * Partial ADLs (Assistance needed) Ambulation Bathing Dressing Eating Medication Management Toileting Transfers * Other Equipment WALKER, W/C, HOME 02, TRACH SUPPLIES, FEEDING SUPPLIES, BSC * List name and contact numbers for known caregivers / representatives who currently or will assist patient after discharge: MEÑO WALDEN - [phone] * Verbal permission to speak to the caregivers and representatives has been obtained from the patient. Yes * Community resources currently utilized Home Health * Please name any agencies selected above. [facility] * Additional services required to return to the preadmission environment? No * Can the patient safely return to the preadmission environment? Yes * Has this patient been hospitalized within the prior 30 days at any hospital? Yes Coverage Notice Reviewer: [id number] Holly Simpson Notice Issued Date-Time: 03/20/2019 16:59 Notice Type: Medicare Outpatient Observation Notice Notice Delivered To: Patient Relationship to Patient: Self Mine Car Repairer Name: Delivery Method: HAND - Hand Delivered Cassandra Days: Prior Verbal Notification: Recipient Understood Notice: Yes Recipient Signature: Yes Med Rec Note Co-signed by Attending: Coverage Notice Comment: MACARIO explained, signed, given, copy placed in MR Last DP export: 03/21/19 6:15 pm Patient Name: CHON LUI Page 59098 at 1922 All edits/amendments must be made on the electronic document DICTATION DATE: 03/21/191920 BROKE BEATER MACHINE OPERATOR: NAHUN 03/21/191920 RPT#: [id number] [place] DATE: STATUS: ADM IN [facility] [address] [place] [address] END OF REPORT
[2019-03-21 19:50] VITALS: BP 103/53
[2019-03-21 23:39] VITALS: BP 120/49
[2019-03-22 04:38] VITALS: BP 118/51
--- NOTE | 2019-03-22 04:42 | NUR ---
PT LAYING IN BED, NO SIGNS OF DISTRESS.
[2019-03-22 07:19] VITALS: BP 97/42
[2019-03-22 07:54] LABS: CALC OSMOLALITY 264 mosm/kg (275-300); CARBON DIOXIDE 30.3 mmol/L (21.0-32.0); CHLORIDE - SERUM 96 mmol/L (98-107); CREATININE - SERUM 0.6 mg/dL (0.6-1.3); GLUCOSE 104 mg/dL (74-106); POTASSIUM - SERUM 3.5 mmol/L (3.5-5.1); SODIUM 131 mmol/L (136-145); UREA NITROGEN 19 mg/dL (7-18); eGFR NON AFRICAN AMERICAN > 90 mL/min (90-120)
[2019-03-22 08:03] LABS: BASOPHILS 0.2 % (0-2); EOSINOPHILS 0.9 % (0-7); HEMATOCRIT 29.6 % (36.0-48.0); HEMOGLOBIN 9.7 g/dL (12-16); IMMATURE GRANULOCYTES 0.9 % (0-5); MCH 27.6 pg (26.0-34.0); MCHC 32.8 g/dL (31.0-37.0); MCV 84.3 fL (80.0-100.0); MEAN PLATELET VOLUME 8.5 fL (7.4-10.4); MONOCYTES 10.6 % (2-11); NEUTROPHILS 65.4 % (40-80); PLATELET COUNT 262 10x3/uL (130-400); RBC 3.51 10x6/uL (4.00-5.40); RDW 18.9 % (11.5-14.5); WBC 5.5 10x3/uL (4.8-10.8)
--- NOTE | 2019-03-22 08:04 | NUR ---
PT RESTING IN BED. SHIFT ASSESSMENT PERFORMED. VSS AND WNL. DENIES ANY NEEDS AT THIS TIME, WILL CONT TO FOLLOW POC
--- NOTE | 2019-03-22 08:30 | NUR ---
JEVITY 1.5 TF GIVEN ORDERED VIA GRAVITY. PT TOLERATED WELL
--- NOTE | 2019-03-22 08:52 | NUR ---
PHYSICAL THERAPY HERE AND ASSISTED PT UP TO CHAIR. COMPLETE BED LINEN CHANGE PROVIDED.
--- NOTE | 2019-03-22 09:30 | NUR ---
PT HAD LARGE DIARRHEA STOOL. SAMPLE TAKEN AND SENT TO LAB. ASSISTED PT WITH SHAVON CARE. PHYSICAL THERAPY HERE AND ASSISTED RN WITH TRANSFERRING PT BACK TO BED. DENIES ANY FURTHER NEEDS AT THIS TIME. CALL LIGHT WITHIN REACH AND BED IN LOWEST POSITION
--- NOTE | 2019-03-22 09:32 | MORECARE ---
CASE MANAGEMENT DISCHARGE SUMMARY PATIENT: CHON LUI UNIT: [id number] ADM DATE: 03/21/19 AGE: 68 : 50 SEX: F ROOM/BED: D.1210 AUTHOR: MONET,DOC PHYSICIAN: REFERRING PHYSICIAN: MARY KAY SARKAR MD DATE OF SERVICE: 03/22/19 Discharge Plan Patient Name: CHON LUI Facility: [facility]:[place] : 1950 Planned Disposition: Half-Way Facility Anticipated Discharge Date: Discharge Date: Expected LOS: Initial Reviewer: [email or web address] Initial Review Date: 03/21/2019 Generated: 03/22/19 10:31 am Comments DCP- Discharge Planning Updated by [id number]: Cassandra Ling on 03/21/19 6:[address] Patient Name: CHON LUI Admission Status: ER Accout number: [id number] Admission Date: 03-21-2019 : 1950 Admission Diagnosis: Attending: MARY KAY SARKAR Current LOS: 1 Anticipated DC Date: Planned Disposition: Half-Way Facility Primary Insurance: NOVLedzworldCR Discharge Planning Comments: CM received call today from patient daughter Meño MAYFIELD. Meño states that the patient needs placement in SNF and possible long-term care. Meño states that she is not able to take care of patient any longer at home. Meño states that she would like a facility that is close to [facility]. CM explained that we would work from the [facility] outward to find facility that will take a trach patient. Meño stated that if patient gets stronger and can be more independent then she will bring her back home. CM called [facility] in [place] they are not currently taking trach patients. CM sent out referral for [facility] still needing OT eval. CM will continue to follow and assist as needed with discharge planning needs. Detective Bureau Chief: Cassandra Ling DCPIA - Discharge Planning Initial Assessment Updated by [id number]: Cassandra Ling on 03/21/19 7:08 pm * Is the patient Alert and Oriented? Yes * How many steps to enter\exit or inside your home? * Pharmacy [facility] * Preadmission Environment Home with Family * ADLs Partial Dependent * Partial ADLs (Assistance needed) Ambulation Bathing Dressing Eating Medication Management Toileting Transfers * Other Equipment WALKER, W/C, HOME 02, TRACH SUPPLIES, FEEDING SUPPLIES, BSC * List name and contact numbers for known caregivers / representatives who currently or will assist patient after discharge: MEÑO WALDEN - [phone] * Verbal permission to speak to the caregivers and representatives has been obtained from the patient. Yes * Community resources currently utilized Home Health * Please name any agencies selected above. [facility] * Additional services required to return to the preadmission environment? No * Can the patient safely return to the preadmission environment? Yes * Has this patient been hospitalized within the prior 30 days at any hospital? Yes External Providers External Provider: [facility] Next Contact Date: Service Request Date: Service Type: Resolution: Reviewer: Comments: Coverage Notice Reviewer: [id number] Holly Simpson Notice Issued Date-Time: 03/20/2019 16:59 Notice Type: Medicare Outpatient Observation Notice Notice Delivered To: Patient Relationship to Patient: Self Commissioning Manager Name: Delivery Method: HAND - Hand Delivered Cassandra Days: Prior Verbal Notification: Recipient Understood Notice: Yes Recipient Signature: Yes Med Rec Note Co-signed by Attending: Coverage Notice Comment: MACARIO explained, signed, given, copy placed in MR Last DP export: 03/21/19 6:22 pm Patient Name: CHON LUI Page 15987 at 0932 All edits/amendments must be made on the electronic document DICTATION DATE: 03/22/19930 STORE MANAGEMENT TRAINEE: NAHUN 03/22/19930 RPT#: [id number] DC DATE: STATUS: ADM IN [facility] [address] [place] [address] END OF REPORT
--- NOTE | 2019-03-22 11:19 | NUR ---
OT NOTE: PT CLEANED AND BRIEF CHANGED SECONDART TO DIARHHEA EPISODE. PT ABLE TO PERFORM FACE, HAND, AND UPPER BODY BATHING WITH SET UP; MOD/MAX ASSIST WITH LEGS AND FEET. ABLE TO VALENTINO GOWN WITH MIN ASSIST..MAX ASSIST WITH SOCKS. BED MOB WITH MOD ASSIST FOR ROLLING SIDE TO SIDE AND SUPINE TO SIT; MAX ASSIST FOR TRANSFER FROM BED TO CHAIR WITHOUT USE OF WALKER. UE AROM EXS WITH EXTENSIVE REST BREAKS. WILL REQUIRE CONTINUED THERAPY FROM IP OR SNF PRIOR TO RETURNING HOME. BRIAN BYRNE, OTR/L
[2019-03-22 12:30] VITALS: BP 90/50
--- NOTE | 2019-03-22 12:54 | NUR ---
JEVITY 1.5 TF GIVEN ORDERED VIA GRAVITY. PT TOLERATED WELL. FAMILY AT BEDSIDE, COMPLETE LINEN CHANGE PROVIDED DUE TO URINE INCONTINENCE.
--- NOTE | 2019-03-22 14:23 | NUR ---
Team Treatment Review: Diet: Bolus, Jevity 1.5 (Tolerating) Wt: 119 lbs on Mar 21 BM: Diarrhea x 2 on Mar 22 (no C-Diff present) Sig Meds: Lasix Sig Labs: Glucose- 130(H), Na- 131(L) Goals: Continue Jevity 1.5 as tolerated Diarrhea Cessation Will continue to monitor wt, BM frequency, TF, and nut related labs, Clinical Dietitian Following
--- NOTE | 2019-03-22 17:32 | NUR ---
OT NOTE:PT COMPLETED BED MOB WITH MIN A. PT COMPLETED TSF WITH MOD A. PT COMPLETED SELF BATHING WITH MIN A FOR UE AND MOD A LB. THANK YOU, CHADWICK BOLAÑOS
--- NOTE | 2019-03-22 18:07 | NUR ---
PT RESTING IN BED. DENIES ANY NEEDS AT THIS TIME. WILL CONT TO FOLLOW POC
[2019-03-22 18:42] VITALS: BP 100/50
--- NOTE | 2019-03-22 19:00 | NUR ---
EVENING ROUNDS COMPLETE, PT LAYING IN BED. VSS, NO SIGNS OF DISTRESS. C/O PAIN 01/23, PRN MORPHINE GIVEN WITH PRN ZOFRAN. WILL REASSESS PAIN AT 1929. PT DENIES ANY FURTHER NEEDS AT THIS TIME. CONT WITH POC.
[2019-03-22 20:00] VITALS: BP 74/46
--- NOTE | 2019-03-23 | NUR ---
PT LAYING IN BED, NO C/O PAIN AT THIS TIME. CONT WITH POC.
[2019-03-23 00:11] VITALS: BP 103/47
[2019-03-23 03:56] VITALS: BP 103/46
--- NOTE | 2019-03-23 05:59 | NUR ---
PT LAYING IN BED, C/O ITCH AROUND PORT ACCESS. ASSESSED PORT AND NOTICED RED RASH LIKE SPOTS UNDERNEATH TEGADERM. CALLED AND NOTIFIED PEPPER GALLAGHER. PEPPER GALLAGHER ORDERED BLOOD CULTURES X2 WITH MORNING LABS, DRESSING CHANGE NOW, PO 25MG BENADRYL X1 NOW TO BE ADMINISTERED THROUGH G-TUBE AND FLUSH WITH 30ML OF WATER.
[2019-03-23 06:48] LABS: BASOPHILS 0.2 % (0-2); EOSINOPHILS 0.8 % (0-7); HEMATOCRIT 29.1 % (36.0-48.0); HEMOGLOBIN 9.6 g/dL (12-16); LYMPHOCYTES 22.2 % (15-50); MCV 84.8 fL (80.0-100.0); MEAN PLATELET VOLUME 8.2 fL (7.4-10.4); MONOCYTES 8.8 % (2-11); PLATELET COUNT 247 10x3/uL (130-400); RBC 3.43 10x6/uL (4.00-5.40); WBC 6.2 10x3/uL (4.8-10.8)
[2019-03-23 07:15] LABS: CALC OSMOLALITY 268 mosm/kg (275-300); CALCIUM 7.9 mg/dL (8.5-10.1); CARBON DIOXIDE 29.3 mmol/L (21.0-32.0); CHLORIDE - SERUM 96 mmol/L (98-107); CREATININE - SERUM 0.6 mg/dL (0.6-1.3); GLUCOSE 99 mg/dL (74-106); POTASSIUM - SERUM 3.5 mmol/L (3.5-5.1); SODIUM 134 mmol/L (136-145); UREA NITROGEN 15 mg/dL (7-18); eGFR NON AFRICAN AMERICAN > 90 mL/min (90-120)
[2019-03-23 07:43] VITALS: BP 90/50
--- NOTE | 2019-03-23 07:44 | NUR ---
PT RESTING IN BED, SCDS IN PLACE. DENIES ANY NEEDS AT THIS TIME, VSS AND WNL. WILL CONT TO FOLLOW POC
--- NOTE | 2019-03-23 08:00 | NUR ---
PEG PLACEMENT VERIFIED VIA ASPIRATION AND AIR BOLUS. JEVITY 1.5 240ML ADMINISTERED VIA PEG WITH 90ML H2O FLUSH BEFORE AND AFTER. PT TOLERATED WELL.
--- NOTE | 2019-03-23 10:35 | NUR ---
SENIOR MANAGER MERGERS & ACQUISITIONS CALLED AND ALERTED NURSE THAT PT HAD A RUN OF 12 PAC/SVT. PT VSS AND WNL. PT DENIES CHEST PAIN OR SOB. PAGED HERMINIA MARIEE
[2019-03-23 11:30] VITALS: BP 87/46
--- NOTE | 2019-03-23 11:41 | NUR ---
PT SITTING UP IN CHAIR NEXT TO BED, DENIES ANY NEEDS AT THIS TIME. WILL CONT TO FOLLOW POC
--- NOTE | 2019-03-23 11:54 | MORECARE ---
CASE MANAGEMENT DISCHARGE SUMMARY PATIENT: CHON LUI UNIT: [id number] ADM DATE: 03/21/19 AGE: 68 : 50 SEX: F ROOM/BED: D.1210 AUTHOR: MONET,DOC PHYSICIAN: REFERRING PHYSICIAN: MARY KAY SARKAR MD DATE OF SERVICE: 03/23/19 Discharge Plan Patient Name: CHON LUI Facility: [facility]:[place] : 1950 Planned Disposition: Fpc Facility Anticipated Discharge Date: Discharge Date: Expected LOS: Initial Reviewer: [email or web address] Initial Review Date: 03/21/2019 Generated: 03/23/19 12:54 pm Comments DCP- Discharge Planning Updated by [id number]: Cassandra Ling on 03/21/19 6:[address] Patient Name: CHON LUI Admission Status: ER Accout number: [id number] Admission Date: 03-21-2019 : 1950 Admission Diagnosis: Attending: MARY KAY SARKAR Current LOS: 1 Anticipated DC Date: Planned Disposition: Fpc Facility Primary Insurance: [employer] Discharge Planning Comments: CM received call today from patient daughter Meño MAYFIELD. Meño states that the patient needs placement in SNF and possible long-term care. Meño states that she is not able to take care of patient any longer at home. Meño states that she would like a facility that is close to [facility]. CM explained that we would work from the [facility] outward to find facility that will take a trach patient. Meño stated that if patient gets stronger and can be more independent then she will bring her back home. CM called [facility] in [place] they are not currently taking trach patients. CM sent out referral for [facility] still needing OT eval. CM will continue to follow and assist as needed with discharge planning needs. Quality Assurance Intern: Cassandra Ling DCPIA - Discharge Planning Initial Assessment Updated by [email or web address]: Cassandra Lign on 03/21/19 7:08 pm * Is the patient Alert and Oriented? Yes * How many steps to enter\exit or inside your home? * Pharmacy [facility] * Preadmission Environment Home with Family * ADLs Partial Dependent * Partial ADLs (Assistance needed) Ambulation Bathing Dressing Eating Medication Management Toileting Transfers * Other Equipment WALKER, W/C, HOME 02, TRACH SUPPLIES, FEEDING SUPPLIES, BSC * List name and contact numbers for known caregivers / representatives who currently or will assist patient after discharge: MEÑO WALDEN - [phone] * Verbal permission to speak to the caregivers and representatives has been obtained from the patient. Yes * Community resources currently utilized Home Health * Please name any agencies selected above. [facility] * Additional services required to return to the preadmission environment? No * Can the patient safely return to the preadmission environment? Yes * Has this patient been hospitalized within the prior 30 days at any hospital? Yes Coverage Notice Reviewer: [id number] Holly Simpson Notice Issued Date-Time: 03/20/2019 16:59 Notice Type: Medicare Outpatient Observation Notice Notice Delivered To: Patient Relationship to Patient: Self Rock Mason Apprentice Name: Delivery Method: HAND - Hand Delivered Cassandra Days: Prior Verbal Notification: Recipient Understood Notice: Yes Recipient Signature: Yes Med Rec Note Co-signed by Attending: Coverage Notice Comment: MACARIO explained, signed, given, copy placed in MR Last DP export: 03/22/19 8:32 am Patient Name: CHON LUI Page [id number] at 1154 All edits/amendments must be made on the electronic document DICTATION DATE: 03/23/19 1154 BRAKE REPAIR MECHANIC: NAHUN 03/23/19 1154 RPT#: [id number] DE DATE: STATUS: ADM IN [facility] [address] [place] [address] END OF REPORT
--- NOTE | 2019-03-23 12:00 | NUR ---
PEG PLACEMENT VERIFIED VIA ASPIRATION AND AIR BOLUS. JEVITY 1.5 240ML ADMINISTERED VIA PEG WITH 90ML H2O FLUSH BEFORE AND AFTER. PT TOLERATED WELL.
--- NOTE | 2019-03-23 12:42 | MORECARE ---
CASE MANAGEMENT DISCHARGE SUMMARY PATIENT: CHON LUI UNIT: [id number] ADM DATE: 03/21/19 AGE: 68 : 50 SEX: F ROOM/BED: D.1210 AUTHOR: MONET,DOC PHYSICIAN: REFERRING PHYSICIAN: MARY KAY SARKAR MD DATE OF SERVICE: 03/23/19 Discharge Plan Patient Name: CHON LUI Facility: [facility]:[place] : 1950 Planned Disposition: Detention Facility Anticipated Discharge Date: Discharge Date: Expected LOS: Initial Reviewer: [id number] Initial Review Date: 03/21/2019 Generated: 03/23/19 1:42 pm Comments DCP- Discharge Planning Updated by [email or web address]: Cassandra Ling on 03/21/19 6:[address] Patient Name: CHON LUI Admission Status: ER Accout number: [id number] Admission Date: 03-21-2019 : 1950 Admission Diagnosis: Attending: MARY KAY SARKAR Current LOS: 1 Anticipated DC Date: Planned Disposition: Detention Facility Primary Insurance: [employer]OV[employer] Discharge Planning Comments: CM received call today from patient daughter Meño MAYFIELD. Meño states that the patient needs placement in SNF and possible long-term care. Meño states that she is not able to take care of patient any longer at home. Meño states that she would like a facility that is close to [facility]. CM explained that we would work from the [facility] outward to find facility that will take a trach patient. Meño stated that if patient gets stronger and can be more independent then she will bring her back home. CM called [facility] in [place] they are not currently taking trach patients. CM sent out referral for [facility] still needing OT eval. CM will continue to follow and assist as needed with discharge planning needs. Shovel Oiler: Cassandra Ling DCPIA - Discharge Planning Initial Assessment Updated by [id number]: Cassandra Ling on 03/21/19 7:08 pm * Is the patient Alert and Oriented? Yes * How many steps to enter\exit or inside your home? * Pharmacy [facility] * Preadmission Environment Home with Family * ADLs Partial Dependent * Partial ADLs (Assistance needed) Ambulation Bathing Dressing Eating Medication Management Toileting Transfers * Other Equipment WALKER, W/C, HOME 02, TRACH SUPPLIES, FEEDING SUPPLIES, BSC * List name and contact numbers for known caregivers / representatives who currently or will assist patient after discharge: MEÑO WALDEN - [phone] * Verbal permission to speak to the caregivers and representatives has been obtained from the patient. Yes * Community resources currently utilized Home Health * Please name any agencies selected above. [facility] * Additional services required to return to the preadmission environment? No * Can the patient safely return to the preadmission environment? Yes * Has this patient been hospitalized within the prior 30 days at any hospital? Yes External Providers External Provider: [facility] Next Contact Date: Service Request Date: Service Type: Resolution: Reviewer: Comments: Coverage Notice Reviewer: [id number] Holly Simpson Notice Issued Date-Time: 03/20/2019 16:59 Notice Type: Medicare Outpatient Observation Notice Notice Delivered To: Patient Relationship to Patient: Self Print Production Coordinator Name: Delivery Method: HAND - Hand Delivered Cassandra Days: Prior Verbal Notification: Recipient Understood Notice: Yes Recipient Signature: Yes Med Rec Note Co-signed by Attending: Coverage Notice Comment: MACARIO explained, signed, given, copy placed in MR Last DP export: 03/23/19 10:54 am Patient Name: CHON LUI Page [phone] at 1242 All edits/amendments must be made on the electronic document DICTATION DATE: 03/23/19 1242 FISH ROE PROCESSOR: NAHUN 03/23/19 1242 RPT#: [id number] DC DATE: STATUS: ADM IN [facility] [address] [place] [address] END OF REPORT
--- NOTE | 2019-03-23 12:47 | NUR ---
Nutrition Follow-up: RN reports pt tolerating TF. Reports diarrea x2 yesterday but none today. Diet: Jevity 1.5 1 can 4x/day + 90 mL H2O flushes before and after feedings. Labs reviewed Meds reviewed Rec continue current TF as tolerated. RD following.
--- NOTE | 2019-03-23 16:13 | NUR ---
OT NOTE: PT COMPLETED SUPINE TO SIT WITH MOD A. PT COMPLETED BED TO CHAIR TRANSFER WITH MAX A. PT COMPLETED BUE AROM AX. PT COMPLETED HYGIENE TASK WITH TOTAL A. PT EXHIBITS POOR ACTIVITY TOLERANCE AND REQUIRED EXTENSIVE ASSIST. THANK YOU, CHADWICK BOLAÑOS
--- NOTE | 2019-03-23 17:32 | NUR ---
PEG PLACEMENT VERIFIED VIA ASPIRATION AND AIR BOLUS. JEVITY 1.5 240ML ADMINISTERED VIA PEG WITH 90ML H2O FLUSH BEFORE AND AFTER. PT TOLERATED WELL.
--- NOTE | 2019-03-23 17:45 | NUR ---
COMPLETE BED LINEN CHANGE PROVIDED DUE TO URINARY INCONTINENCE
--- NOTE | 2019-03-23 18:17 | NUR ---
ASKED NURSE TO ORDER NS AT 75ML/HR AND TO OBTAIN LACTIC ACID AND TROPONIN DUE TO PT BOUT OF SVT EARLIER TODAY
[2019-03-23 18:25] VITALS: BP 99/50
--- NOTE | 2019-03-23 19:20 | NUR ---
RECEIVED PT. IN BED. DENIES PAIN AT THIS TIME. NO S/S OF DISTRESS NOTED AT THIS TIME. WILL CPOC.
[2019-03-23 20:00] VITALS: BP 125/60
[2019-03-24 00:21] VITALS: BP 126/62
[2019-03-24 07:02] LABS: CALCIUM 8.6 mg/dL (8.5-10.1); CARBON DIOXIDE 29.2 mmol/L (21.0-32.0); CHLORIDE - SERUM 100 mmol/L (98-107); GLUCOSE 84 mg/dL (74-106); POTASSIUM - SERUM 3.4 mmol/L (3.5-5.1); SODIUM 137 mmol/L (136-145)
[2019-03-24 07:05] LABS: CALC OSMOLALITY 271 mosm/kg (275-300); CREATININE - SERUM 0.4 mg/dL (0.6-1.3); UREA NITROGEN 10 mg/dL (7-18); eGFR NON AFRICAN AMERICAN > 90 mL/min (90-120)
[2019-03-24 07:15] LABS: BASOPHILS 0.2 % (0-2); EOSINOPHILS 1.1 % (0-7); HEMATOCRIT 32.5 % (36.0-48.0); HEMOGLOBIN 10.5 g/dL (12-16); IMMATURE GRANULOCYTES 1.8 % (0-5); LYMPHOCYTES 20.9 % (15-50); MCH 28.1 pg (26.0-34.0); MCHC 32.3 g/dL (31.0-37.0); MEAN PLATELET VOLUME 8.5 fL (7.4-10.4); MONOCYTES 9.6 % (2-11); NEUTROPHILS 66.4 % (40-80); RBC 3.74 10x6/uL (4.00-5.40); RDW 19.3 % (11.5-14.5); WBC 5.6 10x3/uL (4.8-10.8)
[2019-03-24 07:17] LABS: MCV 86.9 fL (80.0-100.0); PLATELET COUNT 311 10x3/uL (130-400)
--- NOTE | 2019-03-24 07:30 | NUR ---
PT RESTING IN BED, VSS AND WNL. SHIFT ASSESSMENT PERFORMED. DENIES ANY NEEDS AT THIS TIME, CALL LIGHT WITHIN REACH, WILL CONT TO FOLLOW POC
--- NOTE | 2019-03-24 08:00 | NUR ---
PEG PLACEMENT VERIFIED VIA ASPIRATION AND AIR BOLUS. JEVITY 1.5 240ML ADMINISTERED VIA PEG WITH 90ML H2O FLUSH BEFORE AND AFTER. PT TOLERATED WELL.
[2019-03-24 08:31] VITALS: BP 126/46
--- NOTE | 2019-03-24 12:00 | NUR ---
PEG PLACEMENT VERIFIED VIA ASPIRATION AND AIR BOLUS. JEVITY 1.5 240ML ADMINISTERED VIA PEG WITH 90ML H2O FLUSH BEFORE AND AFTER. PT TOLERATED WELL.
--- NOTE | 2019-03-24 12:00 | NUR ---
PT SITTING UP IN CHAIR AT BEDSIDE. DENIES ANY NEEDS AT THIS TIME. WILL CONT TO FOLLOW POC
[2019-03-24 13:00] VITALS: BP 90/46
--- NOTE | 2019-03-24 13:06 | NUR ---
Nutrition Follow-up: RN reports pt tolerating TF without issue. Diet: Jevity 1.5 1 can QID + 90 mL H2O flushes before and after feedings Last BM: 03/23 per chart No new wt Labs reviewed Meds reviewed Rec continue current TF as tolerated. RD following.
--- NOTE | 2019-03-24 16:19 | NUR ---
OT NOTE: PT REQUIRED MIN/MOD TO BRING LEGS OVER SIDE OF BED AND MAINTAIN TRUNK CONTROL FOR SUPINE TO SIT. PT IS WEAK. PT REQUIRED MAX A WITH TRANSFER. PT BORE LITTLE WEIGHT IN LES DURING TRANSFER. PT COMPLETED FACE WASH WITH SET UP. PT COMPLETED HAND WASH WITH SET UP OF [place]TTE. PT EXHIBITS DECREASED ACTIVTIY TOLERANCE. THANK YOU, CHADWICK BOLAÑOS
--- NOTE | 2019-03-24 17:00 | NUR ---
PEG PLACEMENT VERIFIED VIA ASPIRATION AND AIR BOLUS. JEVITY 1.5 240ML ADMINISTERED VIA PEG WITH 90ML H2O FLUSH BEFORE AND AFTER. PT TOLERATED WELL.
[2019-03-24 17:45] VITALS: BP 124/54
--- NOTE | 2019-03-24 18:10 | NUR ---
PT RESTING IN BED, FAMILY AT BEDSIDE, DENIES ANY NEEDS AT THIS TIME, WILL CONT TO FOLLOW POC
--- NOTE | 2019-03-24 20:00 | NUR ---
RECEIVED PT. PROVIDED LINEN CHANGE FOR INCONT. RR EVEN AND UNLABORED. NO VOICED C/O OR CONCERNS AT THIS TIME. NO S/S OF DISTRESS NOTED. WILL CPOC.
[2019-03-24 20:30] VITALS: BP 110/63
--- NOTE | 2019-03-24 22:49 | MORECARE ---
CASE MANAGEMENT DISCHARGE SUMMARY PATIENT: CHON LUI UNIT: [id number] ADM DATE: 03/21/19 AGE: 68 : 50 SEX: F ROOM/BED: D.1210 AUTHOR: MONET,DOC PHYSICIAN: REFERRING PHYSICIAN: MARY KAY SARKAR MD DATE OF SERVICE: 03/24/19 Discharge Plan Patient Name: CHON LUI Facility: [facility]:[place] : 1950 Planned Disposition: Residential Facility Anticipated Discharge Date: Discharge Date: Expected LOS: Initial Reviewer: [id number] Initial Review Date: 03/21/2019 Generated: 03/24/19 11:49 pm Comments DCP- Discharge Planning Updated by [id number]: Cassandra Ling on 03/24/19 9:[address] LATE ENTRY 03/22/19 -03/24/19 CM has contacted several [facility] - denied, [place] - denied, Allie Marquezaft with [facility] - denied. Allie state that she doesn't know any facility that accepts [employer] insurance. CM called [facility] to find out what facilities that they have contracts with was given a list of three facilities. CM called to check facilities and they are all hospital rehab facilities. CM spoke with patients daughter Meño and she stated that she was going to call the patient's CM at [facility] and see if she can find out anything. CM explained that she would keep trying to find a facility. CM will continue to follow and assist as needed with discharge planning / needs. DCP- Discharge Planning Updated by [id number]: Cassandra Ling on 03/21/19 6:[address] Patient Name: CHON LUI Admission Status: ER Accout number: [id number] Admission Date: 03-21-2019 : 1950 Admission Diagnosis: Attending: MARY KAY SARKAR Current LOS: 1 Anticipated DC Date: Planned Disposition: Residential Facility Primary Insurance: NOVASYSMCR Discharge Planning Comments: CM received call today from patient daughter Meño MAYFIELD. Meño states that the patient needs placement in SNF and possible long-term care. Meño states that she is not able to take care of patient any longer at home. Meño states that she would like a facility that is close to [facility]. CM explained that [place] [facility] [place] to find facility that will take a trach patient. Meño stated that if patient gets stronger and can be more independent then she will bring her back home. CM called [facility] in [place] they are not currently taking trach patients. CM sent out referral for [facility] still needing OT eval. CM will continue to follow and assist as needed with discharge planning needs. Sulphate Tester: Cassandra HUDDLESTON - Discharge Planning Initial Assessment Updated by [id number]: Cassandra Ling on 03/21/19 7:08 pm * Is the patient Alert and Oriented? Yes * How many steps to enter\exit or inside your home? * Pharmacy [facility] * Preadmission Environment Home with Family * ADLs Partial Dependent * Partial ADLs (Assistance needed) Ambulation Bathing Dressing Eating Medication Management Toileting Transfers * Other Equipment WALKER, W/C, HOME 02, TRACH SUPPLIES, FEEDING SUPPLIES, BSC * List name and contact numbers for known caregivers / representatives who currently or will assist patient after discharge: MEÑO WALDEN - [phone] * Verbal permission to speak to the caregivers and representatives has been obtained from the patient. Yes * Community resources currently utilized Home Health * Please name any agencies selected above. [facility] * Additional services required to return to the preadmission environment? No * Can the patient safely return to the preadmission environment? Yes * Has this patient been hospitalized within the prior 30 days at any hospital? Yes Coverage Notice Reviewer: [id number] Holly Simpson Notice Issued Date-Time: 03/20/2019 16:59 Notice Type: Medicare Outpatient Observation Notice Notice Delivered To: Patient Relationship to Patient: Self Metal Furniture Repairer Name: Delivery Method: HAND - Hand Delivered Cassandra Days: Prior Verbal Notification: Recipient Understood Notice: Yes Recipient Signature: Yes Med Rec Note Co-signed by Attending: Coverage Notice Comment: MACARIO explained, signed, given, copy placed in MR Last DP export: 03/23/19 11:42 am Patient Name: CHON LUI Page [id number] at 2249 All edits/amendments must be made on the electronic document DICTATION DATE: 03/24/192248 PAPER PLATE MACHINE TENDER: NAHUN 03/24/192248 RPT#: [id number] DC DATE: STATUS: ADM IN [facility] [address] [place] [address] END OF REPORT
--- NOTE | 2019-03-25 01:27 | NUR ---
PROVIDED LINEN CHANGE FOR INCONT. PT REFUSING SCDs.
[2019-03-25 06:04] VITALS: BP 111/50
--- NOTE | 2019-03-25 07:37 | NUR ---
PT RESTING IN BED. DENIES ANY NEEDS. NO S/S OF ACUTE DISTRESS. CL IN PLACE.
[2019-03-25 07:40] LABS: BASOPHILS 0.2 % (0-2); EOSINOPHILS 1.5 % (0-7); HEMATOCRIT 30.3 % (36.0-48.0); HEMOGLOBIN 9.9 g/dL (12-16); IMMATURE GRANULOCYTES 1.7 % (0-5); LYMPHOCYTES 20.2 % (15-50); MCHC 32.7 g/dL (31.0-37.0); MCV 85.8 fL (80.0-100.0); MEAN PLATELET VOLUME 8.4 fL (7.4-10.4); NEUTROPHILS 67.4 % (40-80); PLATELET COUNT 284 10x3/uL (130-400); RBC 3.53 10x6/uL (4.00-5.40); RDW 19.1 % (11.5-14.5); WBC 5.3 10x3/uL (4.8-10.8)
[2019-03-25 07:44] VITALS: BP 119/56
[2019-03-25 07:55] LABS: CALC OSMOLALITY 262 mosm/kg (275-300); CALCIUM 8.9 mg/dL (8.5-10.1); CARBON DIOXIDE 24.5 mmol/L (21.0-32.0); CHLORIDE - SERUM 103 mmol/L (98-107); CREATININE - SERUM 0.5 mg/dL (0.6-1.3); GLUCOSE 87 mg/dL (74-106); POTASSIUM - SERUM 4.3 mmol/L (3.5-5.1); SODIUM 133 mmol/L (136-145); eGFR NON AFRICAN AMERICAN > 90 mL/min (90-120)
[2019-03-25 07:56] LABS: UREA NITROGEN 6 mg/dL (7-18)
--- NOTE | 2019-03-25 11:07 | NUR ---
COMPLETE BED CHANGE DONE. MEPLILEX DRESSING CHANGED. TURNED TO L SIDE. OFFLOAED WITH A PILLOW. NO S/S OF ACUTE DISTRESS. CL IN PLACE.
[2019-03-25 12:25] VITALS: BP 101/50
[2019-03-25 15:56] VITALS: BP 104/47
--- NOTE | 2019-03-25 18:09 | NUR ---
PT CO OF "REINOSO 01/23". APAP GIVEN PER MD ORDER. NO S/S OF ACUTE DISTRESS. CL IN PLACE.
--- NOTE | 2019-03-25 19:34 | NUR ---
ASSUMED PT CARE. PT IN BED GETING UPDRAFT AT THIS TIME. NO NEEDS EXPRESSED. NO S/S OF DISTRESS NOTED. WILL CPOC.
--- NOTE | 2019-03-25 20:15 | NUR ---
PROVIDED TUBE FEEDING PER ORDER. PT TOLETATED WELL.
[2019-03-25 20:21] VITALS: BP 130/60
[2019-03-25 23:56] VITALS: BP 151/103
[2019-03-26 00:26] VITALS: BP 126/61
--- NOTE | 2019-03-26 03:20 | NUR ---
PROVIDED LINEN CHANGE FOR INCONT. PT STILL REFUSING SCDS.
[2019-03-26 06:55] LABS: BASOPHILS 0.2 % (0-2); EOSINOPHILS 1.8 % (0-7); HEMATOCRIT 33.8 % (36.0-48.0); IMMATURE GRANULOCYTES 2.5 % (0-5); LYMPHOCYTES 20.8 % (15-50); MCH 27.8 pg (26.0-34.0); MCHC 32.5 g/dL (31.0-37.0); MCV 85.6 fL (80.0-100.0); MEAN PLATELET VOLUME 8.2 fL (7.4-10.4); MONOCYTES 7.8 % (2-11); NEUTROPHILS 66.9 % (40-80); PLATELET COUNT 321 10x3/uL (130-400); RBC 3.95 10x6/uL (4.00-5.40); RDW 19.5 % (11.5-14.5); WBC 5.5 10x3/uL (4.8-10.8)
[2019-03-26 07:19] LABS: ALBUMIN 2.2 g/dL (3.4-5.0); ALKALINE PHOSPHATASE 95 U/L (46-116); ALT (SGPT) 19 U/L (10-68); BILIRUBIN - TOTAL 0.15 mg/dL (0.2-1.3); CALC OSMOLALITY 262 mosm/kg (275-300); CALCIUM 9.3 mg/dL (8.5-10.1); CARBON DIOXIDE 23.8 mmol/L (21.0-32.0); CHLORIDE - SERUM 101 mmol/L (98-107); CREATININE - SERUM 0.5 mg/dL (0.6-1.3); GLUCOSE 92 mg/dL (74-106); POTASSIUM - SERUM 4.3 mmol/L (3.5-5.1); PROTEIN - SERUM 7.2 g/dL (6.4-8.2); SODIUM 132 mmol/L (136-145); VANCOMYCIN - RANDOM 14.1 ug/mL (10.0-20.0); eGFR NON AFRICAN AMERICAN > 90 mL/min (90-120)
[2019-03-26 07:21] LABS: UREA NITROGEN 8 mg/dL (7-18)
--- NOTE | 2019-03-26 07:30 | NUR ---
PT RESTING IN BED, VSS AND WNL. SHIFT ASSESSMENT PERFORMED. DENIES ANY NEEDS AT THIS TIME. WILL CONT TO FOLLOW POC
[2019-03-26 08:00] VITALS: BP 136/60
--- NOTE | 2019-03-26 08:00 | NUR ---
PEG PLACEMENT VERIFIED VIA ASPIRATION AND AIR BOLUS. JEVITY 1.5 240ML ADMINISTERED VIA PEG WITH 90ML H2O FLUSH BEFORE AND AFTER. PT TOLERATED WELL.
--- NOTE | 2019-03-26 11:56 | NUR ---
PHYSICAL THERAPY PLACED PT IN CHAIR AT BEDSIDE. PT DENIES ANY NEEDS AT THIS TIME, WILL CONT TO FOLLOW POC
--- NOTE | 2019-03-26 12:10 | NUR ---
PEG PLACEMENT VERIFIED VIA ASPIRATION AND AIR BOLUS. JEVITY 1.5 240ML ADMINISTERED VIA PEG WITH 90ML H2O FLUSH BEFORE AND AFTER. PT TOLERATED WELL.
[2019-03-26 12:30] VITALS: BP 126/60
--- NOTE | 2019-03-26 16:53 | NUR ---
PEG PLACEMENT VERIFIED VIA ASPIRATION AND AIR BOLUS. JEVITY 1.5 240ML ADMINISTERED VIA PEG WITH 90ML H2O FLUSH BEFORE AND AFTER. PT TOLERATED WELL.
--- NOTE | 2019-03-26 19:10 | NUR ---
DROPLET ISOLATION OBSERVED PT IN BED LOW AND LOCKED CALL LIGHT WAS ON FLOOR AND PLACED BACK IN PT REACH LCTA SKIN WARM AND DRY PULSES INTACT PT ALERT AND OX4 DENIES ANY NEEDS AT THIS TIME TRACH NOTED AND CLEAN AND LEFT CHEST PORT IS ACESSED AND SL
[2019-03-26 19:45] VITALS: BP 132/60
--- NOTE | 2019-03-26 20:49 | NUR ---
JEVITY HAS BEEN GIVEN PER PEG
--- NOTE | 2019-03-27 00:33 | NUR ---
I have reviewed this patient and I concur with the Shift Assessment completed by the Licensed Practical Nurse today this shift.
[2019-03-27 00:54] VITALS: BP 116/62
[2019-03-27 06:16] LABS: BASOPHILS 0.6 % (0-2); EOSINOPHILS 1.7 % (0-7); HEMATOCRIT 32.4 % (36.0-48.0); HEMOGLOBIN 10.8 g/dL (12-16); IMMATURE GRANULOCYTES 3.2 % (0-5); LYMPHOCYTES 24.3 % (15-50); MCH 28.4 pg (26.0-34.0); MCHC 33.3 g/dL (31.0-37.0); MCV 85.3 fL (80.0-100.0); MEAN PLATELET VOLUME 8.1 fL (7.4-10.4); NEUTROPHILS 62.2 % (40-80); PLATELET COUNT 337 10x3/uL (130-400); RDW 19.6 % (11.5-14.5); WBC 5.4 10x3/uL (4.8-10.8)
[2019-03-27 06:37] VITALS: BP 132/64
[2019-03-27 06:39] LABS: ALBUMIN 2.1 g/dL (3.4-5.0); ALKALINE PHOSPHATASE 97 U/L (46-116); ALT (SGPT) 20 U/L (10-68); BILIRUBIN - TOTAL 0.11 mg/dL (0.2-1.3); CALC OSMOLALITY 266 mosm/kg (275-300); CALCIUM 9.2 mg/dL (8.5-10.1); CARBON DIOXIDE 27.8 mmol/L (21.0-32.0); CHLORIDE - SERUM 101 mmol/L (98-107); CREATININE - SERUM 0.6 mg/dL (0.6-1.3); GLUCOSE 83 mg/dL (74-106); POTASSIUM - SERUM 4.4 mmol/L (3.5-5.1); PROTEIN - SERUM 6.9 g/dL (6.4-8.2); SODIUM 135 mmol/L (136-145); UREA NITROGEN 8 mg/dL (7-18); eGFR NON AFRICAN AMERICAN > 90 mL/min (90-120)
[2019-03-27 07:41] VITALS: BP 159/75
--- NOTE | 2019-03-27 07:45 | NUR ---
PT RESTING IN BED, SHIFT ASSESSMENT PERFORMED. VSS AND WNL. WILL CONT TO FOLLOW POC
--- NOTE | 2019-03-27 08:00 | NUR ---
PEG PLACEMENT VERIFIED VIA ASPIRATION AND AIR BOLUS. JEVITY 1.5 240ML ADMINISTERED VIA PEG WITH 90ML H2O FLUSH BEFORE AND AFTER. PT TOLERATED WELL.
--- NOTE | 2019-03-27 11:30 | NUR ---
PT RESTING IN BED, DENIES ANY NEEDS AT THIS TIME. WILL CONT TO FOLLOW POC
[2019-03-27 12:00] VITALS: BP 78/58
--- NOTE | 2019-03-27 12:00 | NUR ---
PEG PLACEMENT VERIFIED VIA ASPIRATION AND AIR BOLUS. JEVITY 1.5 240ML ADMINISTERED VIA PEG WITH 90ML H2O FLUSH BEFORE AND AFTER. PT TOLERATED WELL.
--- NOTE | 2019-03-27 12:12 | NUR ---
OT NOTE: PT COMPLETED SUPINE TO SIT WITH MIN/CGA. PT COMPLETED SIT TO STAND WITH CGA/MIN A. PT COMPLETED ADL MOB WITH CGA. PT COMPLETED FACE WASH WITH SET UP. PT COMPLETED HAIR GROOMING UPRIGHT IN CHAIR WITH SET UP. PT IS IMPROVING IN ACTIVITY TOLERANCE AND REQUIRED LESS ASSISTANCE THAN PREVIOUS SESSION. THANK YOU, CHADWICK BOLAÑOS
[2019-03-27 14:52] VITALS: BP 113/52
--- NOTE | 2019-03-27 16:17 | MORECARE ---
CASE MANAGEMENT DISCHARGE SUMMARY PATIENT: CHON LUI UNIT: [id number] ADM DATE: 03/21/19 AGE: 68 : 50 SEX: F ROOM/BED: D.1210 AUTHOR: MONET,DOC PHYSICIAN: REFERRING PHYSICIAN: MARY KAY SARKAR MD DATE OF SERVICE: 03/27/19 Discharge Plan Patient Name: CHON LUI Facility: [facility]:[place] : 1950 Planned Disposition: Mcfp Facility Anticipated Discharge Date: Discharge Date: Expected LOS: Initial Reviewer: [id number] Initial Review Date: 03/21/2019 Generated: 03/27/19 5:17 pm DCP- Discharge Planning Updated by [id number]: Cassandra Ling on 03/24/19 9:[address] LATE ENTRY 03/22/19 -03/24/19 CM has contacted several [facility] - denied, [place] - denied, Allie Marquezaft with [facility] - denied. Allie state that she doesn't know any facility that accepts [employer] insurance. CM called [facility] to find out what facilities that they have contracts with was given a list of three facilities. CM called to check facilities and they are all hospital rehab facilities. CM spoke with patients daughter Meño and she stated that she was going to call the patient's CM at [facility] and see if she can find out anything. CM explained that she would keep trying to find a facility. CM will continue to follow and assist as needed with discharge planning / needs. DCP- Discharge Planning Updated by [id number]: Cassandra Ling on 03/21/19 6:[address] Patient Name: CHON LUI Admission Status: ER Accout number: [id number] Admission Date: 03-21-2019 : 1950 Admission Diagnosis: Attending: MARY KAY SARKAR Current LOS: 1 Anticipated DC Date: Planned Disposition: Mcfp Facility Primary Insurance: NOVASYSMCR Discharge Planning Comments: CM received call today from patient daughter Meño MAYFIELD. Meño states that the patient needs placement in SNF and possible long-term care. Meño states that she is not able to take care of patient any longer at home. Meño states that she would like a facility that is close to [facility]. CM explained that we would work from [place] to find facility that will take a trach patient. Meño stated that if patient gets stronger and can be more independent then she will bring her back home. CM called [facility] in [place] they are not currently taking trach patients. CM sent out referral for [facility] still needing OT eval. CM will continue to follow and assist as needed with discharge planning needs. Clinic Md Associate: Cassandra HUDDLESTON - Discharge Planning Initial Assessment Updated by [id number]: Cassandra Ling on 03/21/19 7:08 pm * Is the patient Alert and Oriented? Yes * How many steps to enter\exit or inside your home? * Pharmacy [facility] * Preadmission Environment Home with Family * ADLs Partial Dependent * Partial ADLs (Assistance needed) Ambulation Bathing Dressing Eating Medication Management Toileting Transfers * Other Equipment WALKER, W/C, HOME 02, TRACH SUPPLIES, FEEDING SUPPLIES, BSC * List name and contact numbers for known caregivers / representatives who currently or will assist patient after discharge: MEÑO WALDEN - [phone] * Verbal permission to speak to the caregivers and representatives has been obtained from the patient. Yes * Community resources currently utilized Home Health * Please name any agencies selected above. [facility] * Additional services required to return to the preadmission environment? No * Can the patient safely return to the preadmission environment? Yes * Has this patient been hospitalized within the prior 30 days at any hospital? Yes External Providers External Provider: [facility] Next Contact Date: Service Request Date: Service Type: Resolution: Reviewer: Comments: Coverage Notice Reviewer: [id number] Holly Simpson Notice Issued Date-Time: 03/20/2019 16:59 Notice Type: Medicare Outpatient Observation Notice Notice Delivered To: Patient Relationship to Patient: Self Corn Husker Name: Delivery Method: HAND - Hand Delivered Cassandra Days: Prior Verbal Notification: Recipient Understood Notice: Yes Recipient Signature: Yes Med Rec Note Co-signed by Attending: Coverage Notice Comment: MACARIO explained, signed, given, copy placed in MR Last DP export: 03/24/19 9:49 pm Patient Name: CHON LUI Page [id number] at 1617 All edits/amendments must be made on the electronic document DICTATION DATE: 03/27/191616 RUBBER TILE FLOOR LAYER: NAHUN 03/27/191616 RPT#: [id number] DC DATE: STATUS: ADM IN [facility] [address] [place] [address] END OF REPORT
--- NOTE | 2019-03-27 16:26 | MORECARE ---
CASE MANAGEMENT DISCHARGE SUMMARY PATIENT: CHON LUI UNIT: [id number] ADM DATE: 03/21/19 AGE: 68 : 50 SEX: F ROOM/BED: D.1210 AUTHOR: MONET,DOC PHYSICIAN: REFERRING PHYSICIAN: MARY KAY SARKAR MD DATE OF SERVICE: 03/27/19 Discharge Plan Patient Name: CHON LUI Facility: [facility]:[place] : 1950 Planned Disposition: Usp Facility Anticipated Discharge Date: Discharge Date: Expected LOS: Initial Reviewer: [id number] Initial Review Date: 03/21/2019 Generated: 03/27/19 5:26 pm DCP- Discharge Planning Updated by [email or web address]: Cassandra Ling on 03/24/19 9:[address] LATE ENTRY 03/22/19 -03/24/19 CM has contacted several [facility] - denied, [place] - denied, Allie Marquezaft with [facility] - denied. Allie state that she doesn't know any facility that accepts [employer] insurance. CM called [facility] to find out what facilities that they have contracts with was given a list of three facilities. CM called to check facilities and they are all hospital rehab facilities. CM spoke with patients daughter Meño and she stated that she was going to call the patient's CM at [facility] and see if she can find out anything. CM explained that she would keep trying to find a facility. CM will continue to follow and assist as needed with discharge planning / needs. DCP- Discharge Planning Updated by [email or web address]: Cassandra Ling on 03/21/19 6:[address] Patient Name: CHON LUI Admission Status: ER Accout number: [id number] Admission Date: 03-21-2019 : 1950 Admission Diagnosis: Attending: MARY KAY SARKAR Current LOS: 1 Anticipated DC Date: Planned Disposition: Usp Facility Primary Insurance: [employer]OVASYSMCR Discharge Planning Comments: CM received call today from patient daughter Meño [place]. Meño states that the patient needs placement in SNF and possible long-term care. Meño states that she is not able to take care of patient any longer at home. Meño states that she would like a facility that is close to [facility]. CM explained that [place] would work [place] to find facility that will take a trach patient. Meño stated that if patient gets stronger and can be more independent then she will bring her back home. CM called [facility] in [place] they are not currently taking trach patients. CM sent out referral for [facility] still needing OT eval. CM will continue to follow and assist as needed with discharge planning needs. Oracle Hrms Developer: Cassandra Ling DCPIAdilene - Discharge Planning Initial Assessment Updated by [id number]: Cassandra Ling on 03/21/19 7:08 pm * Is the patient Alert and Oriented? Yes * How many steps to enter\exit or inside your home? * Pharmacy [facility] * Preadmission Environment Home with Family * ADLs Partial Dependent * Partial ADLs (Assistance needed) Ambulation Bathing Dressing Eating Medication Management Toileting Transfers * Other Equipment WALKER, W/C, HOME 02, TRACH SUPPLIES, FEEDING SUPPLIES, BSC * List name and contact numbers for known caregivers / representatives who currently or will assist patient after discharge: MEÑO WALDEN - [phone] * Verbal permission to speak to the caregivers and representatives has been obtained from the patient. Yes * Community resources currently utilized Home Health * Please name any agencies selected above. [facility] * Additional services required to return to the preadmission environment? No * Can the patient safely return to the preadmission environment? Yes * Has this patient been hospitalized within the prior 30 days at any hospital? Yes External Providers [facility] Next Contact Date: Service Request Date: Service Type: Resolution: Reviewer: Comments: External Provider: [facility] Next Contact Date: Service Request Date: Service Type: Resolution: Reviewer: Comments: External Provider: [facility] Next Contact Date: Service Request Date: Service Type: Resolution: Reviewer: Comments: Coverage Notice Reviewer: [id number] Holly Simpson Notice Issued Date-Time: 03/20/2019 16:59 Notice Type: Medicare Outpatient Observation Notice Notice Delivered To: Patient Relationship to Patient: Self Work Study Student Name: Delivery Method: HAND - Hand Delivered Cassandra Days: Prior Verbal Notification: Recipient Understood Notice: Yes Recipient Signature: Yes Med Rec Note Co-signed by Attending: Coverage Notice Comment: MACARIO explained, signed, given, copy placed in MR Last DP export: 03/27/19 3:17 p Patient Name: CHON LUI Page [id number] at 1626 All edits/amendments must be made on the electronic document DICTATION DATE: 03/27/191624 ACTIVITY THERAPY SPECIALIST: NAHUN 03/27/191624 RPT#: [id number] DC DATE: STATUS: ADM IN [facility] [address] [place] [address] END OF REPORT
--- NOTE | 2019-03-27 16:34 | MORECARE ---
CASE MANAGEMENT DISCHARGE SUMMARY PATIENT: CHON LUI UNIT: [id number] ADM DATE: 03/21/19 AGE: 68 : 50 SEX: F ROOM/BED: D.1210 AUTHOR: MONET,DOC PHYSICIAN: REFERRING PHYSICIAN: MARY KAY SARKAR MD DATE OF SERVICE: 03/27/19 Discharge Plan Patient Name: CHON LUI Facility: [facility]:[place] : 1950 Planned Disposition: Prison Facility Anticipated Discharge Date: Discharge Date: Expected LOS: Initial Reviewer: [id number] Initial Review Date: 03/21/2019 Generated: 03/27/19 5:34 pm DCP- Discharge Planning Updated by [email or web address]: Cassandra Ling on 03/24/19 9:[address] LATE ENTRY 03/22/19 -03/24/19 CM has contacted several [facility] - denied, [place] - denied, Allie Marquezaft with [facility] - denied. Allie state that she doesn't know any facility that accepts [employer] insurance. CM called [facility] to find out what facilities that they have contracts with was given a list of three facilities. CM called to check facilities and they are all hospital rehab facilities. CM spoke with patients daughter Meño and she stated that she was going to call the patient's CM at [facility] and see if she can find out anything. CM explained that she would keep trying to find a facility. CM will continue to follow and assist as needed with discharge planning / needs. DCP- Discharge Planning Updated by [email or web address]: Cassandra Ling on 03/21/19 6:[address] Patient Name: CHON LUI Admission Status: ER Accout number: [id number] Admission Date: 03-21-2019 : 1950 Admission Diagnosis: Attending: MAR YKAY SARKAR Current LOS: 1 Anticipated DC Date: Planned Disposition: Prison Facility Primary Insurance: [employer]OVASYSMCR Discharge Planning Comments: CM received call today from patient daughter Meño MAYFIELD. Meño states that the patient needs placement in SNF and possible long-term care. Meño states that she is not able to take care of patient any longer at home. Meño states that she would like a facility that is close to [facility]. CM explained that we would work from [place] to find facility that will take a trach patient. Meño stated that if patient gets stronger and can be more independent then she will bring her back home. CM called [facility] in [place] they are not currently taking trach patients. CM sent out referral for [facility] still needing OT eval. CM will continue to follow and assist as needed with discharge planning needs. Fixed Wing Aircraft Flight Engineer: Cassandra [place] - Discharge Planning Initial Assessment Updated by [email or web address]: Cassandra Ling on 03/21/19 7:08 pm * Is the patient Alert and Oriented? Yes * How many steps to enter\exit or inside your home? * Pharmacy [facility] * Preadmission Environment Home with Family * ADLs Partial Dependent * Partial ADLs (Assistance needed) Ambulation Bathing Dressing Eating Medication Management Toileting Transfers * Other Equipment WALKER, W/C, HOME 02, TRACH SUPPLIES, FEEDING SUPPLIES, BSC * List name and contact numbers for known caregivers / representatives who currently or will assist patient after discharge: MEÑO WALDEN - [phone] * Verbal permission to speak to the caregivers and representatives has been obtained from the patient. Yes * Community resources currently utilized Home Health * Please name any agencies selected above. [facility] * Additional services required to return to the preadmission environment? No * Can the patient safely return to the preadmission environment? Yes * Has this patient been hospitalized within the prior 30 days at any hospital? Yes External Providers External Provider: [facility] Next Contact Date: Service Request Date: Service Type: Resolution: Reviewer: Comments: Coverage Notice Reviewer: [email or web address] Holly Simpson Notice Issued Date-Time: 03/20/2019 16:59 Notice Type: Medicare Outpatient Observation Notice Notice Delivered To: Patient Relationship to Patient: Self Manager Oracle Database Name: Delivery Method: HAND - Hand Delivered Cassandra Days: Prior Verbal Notification: Recipient Understood Notice: Yes Recipient Signature: Yes Med Rec Note Co-signed by Attending: Coverage Notice Comment: MCAARIO explained, signed, given, copy placed in MR Last DP export: 03/27/19 3:26 p Patient Name: CHON LUI Page [id number] at 1634 All edits/amendments must be made on the electronic document DICTATION DATE: 03/27/191633 CLOTH SHRINKING MACHINE OPERATOR HELPER: NAHUN 03/27/194 RPT#: [id number] DC DATE: STATUS: ADM IN [facility] [address] [place] [address] END OF REPORT
--- NOTE | 2019-03-27 17:04 | MORECARE ---
CASE MANAGEMENT DISCHARGE SUMMARY PATIENT: CHON LUI UNIT: [id number] ADM DATE: 03/21/19 AGE: 68 : 50 SEX: F ROOM/BED: D.1210 AUTHOR: MONET,DOC PHYSICIAN: REFERRING PHYSICIAN: MARY KAY SARKAR MD DATE OF SERVICE: 03/27/19 Discharge Plan Patient Name: CHON LUI Facility: [facility]:[place] : 1950 Planned Disposition: [facility] Facility Anticipated Discharge Date: Discharge Date: Expected LOS: Initial Reviewer: [email or web address] Initial Review Date: 03/21/2019 Generated: 03/27/19 6:03 pm Comments DCP- Discharge Planning Updated by [email or web address]: Cassandra Ling on 03/27/19 3:[address] CM received order for Inpatient Rehab but considering patient was just discharged from acute rehab facility then potential for denial to rehab is high. CM sent out information packet out to [facility], [facility], [facility], [facility], and [facility]. CM will see if any of these facilities will accept patient and insurance. CM awaiting decision from facilities. CM will continue to follow and assist in discharge planning / needs. DCP- Discharge Planning Updated by [email or web address]: Cassandra Ling on 03/24/19 9:[address] LATE ENTRY 03/22/19 -03/24/19 CM has contacted several [facility] - denied, [place] - denied, Allie Bolivar with [facility] - denied. Allie state that she doesn't know any facility that accepts [facility] insurance. CM called [facility] to find out what facilities that they have contracts with was given a list of three facilities. CM called to check facilities and they are all hospital rehab facilities. CM spoke with patients daughter Meño and she stated that she was going to call the patient's CM at [facility] and see if she can find out anything. CM explained that she would keep trying to find a facility. CM will continue to follow and assist as needed with discharge planning / needs. DCP- Discharge Planning Updated by [email or web address]: Cassandra Ling on 03/21/19 6:[address] Patient Name: CHON LUI Admission Status: ER Accout number: [id number] Admission Date: 03-21-2019 : 1950 Admission Diagnosis: Attending: MARY KAY SARKAR Current LOS: 1 Anticipated DC Date: Planned [facility]position[facility] Discharge Planning Comments: CM received call today from patient daughter Meño [place]. Meño states that the patient needs placement in SNF and possible long-term care. Meño states that she is not able to take care of patient any longer at home. Meño states that she would like a facility that is close to [facility]. CM explained that we would work from [place] to find facility that will take a trach patient. Meño stated that if patient gets stronger and can be more independent then she will bring her back home. CM called [facility] in [place] they are not currently taking trach patients. CM sent out referral for [facility] still needing OT eval. CM will continue to follow and assist as needed with discharge planning needs. Desktop Support Associate: Cassandra Ling [facility] - Discharge Planning Initial Assessment Updated by [email or web address]: Cassandra Ling on 03/21/19 7:08 pm * Is the patient Alert and Oriented? Yes * How many steps to enter\exit or inside your home? * Pharmacy [facility] * Preadmission Environment Home with Family * ADLs Partial Dependent * Partial ADLs (Assistance needed) Ambulation Bathing Dressing Eating Medication Management Toileting Transfers * Other Equipment WALKER, W/C, HOME 02, TRACH SUPPLIES, FEEDING SUPPLIES, BSC * List name and contact numbers for known caregivers / representatives who currently or will assist patient after discharge: MEÑO BLUE - IRAM - [phone] * Verbal permission to speak to the caregivers and representatives has been obtained from the patient. Yes * Community resources currently utilized Home Health * Please name any agencies selected above. [facility] * Additional services required to return to the preadmission environment? No * Can the patient safely return to the preadmission environment? Yes * Has this patient been hospitalized within the prior 30 days at any hospital? Yes Coverage Notice Reviewer: [email or web address] Holly Simpson Notice Issued Date-Time: 03/20/2019 16:59 Notice Type: Medicare Outpatient Observation Notice Notice Delivered To: Patient Relationship to Patient: Self Grain Elevator Agent Name: Delivery Method: HAND - Hand Delivered Cassandra Days: Prior Verbal Notification: Recipient Understood Notice: Yes Recipient Signature: Yes Med Rec Note Co-signed by Attending: Coverage Notice Comment: SORTO explained, signed, given, copy placed in MR Last DP export: 03/27/19 3:34 p Patient Name: CHON LUI Page [id number] at 1704 All edits/amendments must be made on the electronic document DICTATION DATE: 03/27/191702 VASCULAR ULTRASOUND TECHNOLOGIST: NAHUN 03/27/191702 RPT#: [id number] DC DATE: STATUS: ADM IN [facility] [address] [place] [address] END OF REPORT
--- NOTE | 2019-03-27 17:56 | NUR ---
PT RESTING IN BED, DENIES ANY NEEDS AT THIS TIME, WILL CONT TO FOLLOW POC
--- NOTE | 2019-03-27 19:10 | NUR ---
EVENING ROUNDS COMPLETE. PT LAYING IN BED, VSS, C/O REINOSO 01/23 PAIN. PRN TYLENOL TO BE GIVEN. NO SIGNS OF DISTRESS. CL IN REACH, BED IN LOWEST POSITION. CONT WITH POC.
[2019-03-27 20:41] VITALS: BP 110/59
[2019-03-28 00:43] VITALS: BP 110/51
[2019-03-28 04:51] VITALS: BP 96/47
--- NOTE | 2019-03-28 08:00 | NUR ---
PEG PLACEMENT VERIFIED VIA ASPIRATION AND AIR BOLUS. JEVITY 1.5 240ML ADMINISTERED VIA PEG WITH 90ML H2O FLUSH BEFORE AND AFTER. PT TOLERATED WELL.
[2019-03-28 08:02] LABS: BASOPHILS 0.5 % (0-2); EOSINOPHILS 1.1 % (0-7); HEMATOCRIT 32.4 % (36.0-48.0); HEMOGLOBIN 10.8 g/dL (12-16); IMMATURE GRANULOCYTES 3.9 % (0-5); LYMPHOCYTES 25.4 % (15-50); MCH 28.3 pg (26.0-34.0); MCHC 33.3 g/dL (31.0-37.0); MCV 84.8 fL (80.0-100.0); MEAN PLATELET VOLUME 8.3 fL (7.4-10.4); MONOCYTES 8.6 % (2-11); NEUTROPHILS 60.5 % (40-80); PLATELET COUNT 360 10x3/uL (130-400); RBC 3.82 10x6/uL (4.00-5.40); WBC 6.2 10x3/uL (4.8-10.8)
[2019-03-28 08:18] VITALS: BP 90/43
[2019-03-28 08:38] LABS: ALBUMIN 2.1 g/dL (3.4-5.0); ALKALINE PHOSPHATASE 98 U/L (46-116); BILIRUBIN - TOTAL 0.17 mg/dL (0.2-1.3); CALCIUM 9.2 mg/dL (8.5-10.1); CHLORIDE - SERUM 98 mmol/L (98-107); CREATININE - SERUM 0.7 mg/dL (0.6-1.3); GLUCOSE 85 mg/dL (74-106); POTASSIUM - SERUM 4.5 mmol/L (3.5-5.1); PROTEIN - SERUM 6.9 g/dL (6.4-8.2); SODIUM 133 mmol/L (136-145); eGFR NON AFRICAN AMERICAN 88 mL/min (90-120)
[2019-03-28 08:39] LABS: ALT (SGPT) 27 U/L (10-68); CALC OSMOLALITY 265 mosm/kg (275-300); UREA NITROGEN 16 mg/dL (7-18)
--- NOTE | 2019-03-28 10:44 | NUR ---
PT RESTING IN BED, DENIES ANY NEEDS AT THIS TIME. SHIFT ASSESSMENT PERFORMED. WILL CONT TO FOLLOW POC
[2019-03-28 12:00] VITALS: BP 93/50
--- NOTE | 2019-03-28 12:00 | NUR ---
PEG PLACEMENT VERIFIED VIA ASPIRATION AND AIR BOLUS. JEVITY 1.5 240ML ADMINISTERED VIA PEG WITH 90ML H2O FLUSH BEFORE AND AFTER. PT TOLERATED WELL.
--- NOTE | 2019-03-28 12:57 | NUR ---
PT RESTING IN BED, DENIES ANY NEEDS AT THIS TIME. WILL CONT TO FOLLOW POC
--- NOTE | 2019-03-28 14:18 | MORECARE ---
CASE MANAGEMENT DISCHARGE SUMMARY PATIENT: CHON LUI UNIT: [id number] ADM DATE: 03/21/19 AGE: 68 : 50 SEX: F ROOM/BED: D.1210 AUTHOR: MONET,DOC PHYSICIAN: REFERRING PHYSICIAN: MARY KAY SARKAR MD DATE OF SERVICE: 03/28/19 Discharge Plan Patient Name: CHON LUI Facility: [facility]:[place] : 1950 Planned Disposition: Long Term Facility Anticipated Discharge Date: Discharge Date: Expected LOS: Initial Reviewer: [email or web address] Initial Review Date: 03/21/2019 Generated: 03/28/19 3:18 pm Comments DCP- Discharge Planning Updated by [email or web address]: Cassandra Ling on 03/27/19 3:[address] CM received order for Inpatient Rehab but considering patient was just discharged from acute rehab facility then potential for denial to rehab is high. CM sent out information packet out to [facility], [facility], [facility], [facility], and [facility]. CM will see if any of these facilities will accept patient and insurance. CM awaiting decision from facilities. CM will continue to follow and assist in discharge planning / needs. DCP- Discharge Planning Updated by [email or web address]: Cassandra Ling on 03/24/19 9:[address] LATE ENTRY 03/22/19 -03/24/19 CM has contacted several [facility] - denied, [place] - denied, Allie Bolivar with [facility] - denied. Allie state that she doesn't know any facility that accepts [facility] insurance. CM called [facility] to find out what facilities that they have contracts with was given a list of three facilities. CM called to check facilities and they are all hospital rehab facilities. CM spoke with patients daughter Meño and she stated that she was going to call the patient's CM at [facility] and see if she can find out anything. CM explained that she would keep trying to find a facility. CM will continue to follow and assist as needed with discharge planning / needs. DCP- Discharge Planning Updated by [email or web address]: Cassandra Ling on 03/21/19 6:[address] Patient Name: CHON LUI Admission Status: ER Accout number: [id number] Admission Date: 03-21-2019 : 1950 Admission Diagnosis: Attending: MARY KAY SARKAR Current LOS: 1 Anticipated DC Date: Planned Disposition: Long Term Facility Primary [facility] Discharge Planning Comments: CM received call today from patient daughter Meño [place]. Meño states that the patient needs placement in SNF and possible long-term care. Meño states that she is not able to take care of patient any longer at home. Meño states that she would like a facility that is close to [facility]. CM explained that we would work from the [facility] outward to find facility that will take a trach patient. Meño stated that if patient gets stronger and can be more independent then she will bring her back home. CM called [facility] in [place] they are not currently taking trach patients. CM sent out referral for [facility] still needing OT eval. CM will continue to follow and assist as needed with discharge planning needs. Media Strategist: Cassandra Ling [facility] - Discharge Planning Initial Assessment Updated by [email or web address]: Cassandra Ling on 03/21/19 7:08 pm * Is the patient Alert and Oriented? Yes * How many steps to enter\exit or inside your home? * Pharmacy [facility] * Preadmission Environment Home with Family * ADLs Partial Dependent * Partial ADLs (Assistance needed) Ambulation Bathing Dressing Eating Medication Management Toileting Transfers * Other Equipment WALKER, W/C, HOME 02, TRACH SUPPLIES, FEEDING SUPPLIES, BSC * List name and contact numbers for known caregivers / representatives who currently or will assist patient after discharge: MEÑO BLUE - IRAM - [phone] * Verbal permission to speak to the caregivers and representatives has been obtained from the patient. Yes * Community resources currently utilized Home Health * Please name any agencies selected above. [facility] * Additional services required to return to the preadmission environment? No * Can the patient safely return to the preadmission environment? Yes * Has this patient been hospitalized within the prior 30 days at any hospital? Yes External Providers External Provider: [facility] Next Contact Date: Service Request Date: Service Type: Resolution: Reviewer: Comments: Coverage Notice Reviewer: [id number] Holly Maryse Laurabeatriz Notice Issued Date-Time: 03/20/2019 16:59 Notice Type: Medicare Outpatient Observation Notice Notice Delivered To: Patient Relationship to Patient: Self Quality Worker Name: Delivery Method: HAND - Hand Delivered Cassandra Days: Prior Verbal Notification: Recipient Understood Notice: Yes Recipient Signature: Yes Med Rec Note Co-signed by Attending: Coverage Notice Comment: MACARIO explained, signed, given, copy placed in MR Last DP export: 03/27/19 4:04 p Patient Name: CHON LUI Page [id number] at 1418 All edits/amendments must be made on the electronic document DICTATION DATE: 03/28/191417 DIRECTOR OF PHOTOGRAPHY: NAHUN 03/28/19 141 RPT#: [id number] DC DATE: STATUS: ADM IN [facility] [address] [place] [address] END OF REPORT
[2019-03-28 15:06] VITALS: BP 91/49
--- NOTE | 2019-03-28 15:36 | NUR ---
OT NOTE: PT COMPLETED BED MOB WITH CGA/MIN A. PT COMPLETED SIT TO STAND WITH MIN/MOD A. PT COMPLETED HYGIENE TASKS WITH MAX A WHILE STANDING. PT STATES SHE IS WEAKER THIS AM. THANK YOU, CHADWICK BOLAÑOS
--- NOTE | 2019-03-28 15:40 | NUR ---
OT NOTE: PT BLOOD PRESSURE FALLING. NURSING PAGED THERAPY FOR ASSISTANCE BACK TO BED . PT REQUIRED MAX/MOD A WITH CHAIR TO BED TRANSFER. PT REQUIRED MOD A FOR BED MOB. THANK YOU, CHADWICK BOLAÑOS
--- NOTE | 2019-03-28 17:35 | NUR ---
PT RESTING IN BED. DENIES ANY NEEDS AT THIS TIME, WILL CONT TO FOLLOW POC
--- NOTE | 2019-03-28 17:54 | NUR ---
PEG PLACEMENT VERIFIED VIA ASPIRATION AND AIR BOLUS. JEVITY 1.5 240ML ADMINISTERED VIA PEG WITH 90ML H2O FLUSH BEFORE AND AFTER. PT TOLERATED WELL.
--- NOTE | 2019-03-28 18:33 | MORECARE ---
CASE MANAGEMENT DISCHARGE SUMMARY PATIENT: CHON LUI UNIT: [id number] ADM DATE: 03/21/19 AGE: 68 : 50 SEX: F ROOM/BED: D.1210 AUTHOR: MONET,DOC PHYSICIAN: REFERRING PHYSICIAN: MARY KAY SARKAR MD DATE OF SERVICE: 03/28/19 Discharge Plan Patient Name: CHON LUI Facility: [facility]:[place] : 1950 Planned Disposition: Senior Care Facility Anticipated Discharge Date: Discharge Date: Expected LOS: Initial Reviewer: [email or web address] Initial Review Date: 03/21/2019 Generated: 03/28/19 7:32 pm Comments DCP- Discharge Planning Updated by [email or web address]: Cassandra Ling on 03/28/19 5:[address] CM received call back from [place] [facility], [facility], [facility], [facility] all denied patient either d/t [employer] insurance not being in network and her not having out of network benefits. or d/t the patient having a trach. [facility] are suppose to within network. CM called and spoke with Emily to find out if they would accept patient with trach and [employer] insurance. CM faxed over records and awaiting determination. CM will continue to follow and assist as needed with discharge planning / needs. DCP- Discharge Planning Updated by [id number]: Cassandra Ling on 03/27/19 3:[address] CM received order for Inpatient Rehab but considering patient was just discharged from acute rehab facility then potential for denial to rehab is high. CM sent out information packet out to [facility], [facility], [facility], [facility], and [facility]. CM will see if any of these facilities will accept patient and insurance. CM awaiting decision from facilities. CM will continue to follow and assist in discharge planning / needs. DCP- Discharge Planning Updated by [email or web address]: Cassandra Ling on 03/24/19 9:[address] LATE ENTRY 03/22/19 -03/24/19 CM has contacted several [facility] - denied, [facility] - denied, Allie Españacraft with [facility] - denied. Allie state that she doesn't know any facility that accepts [facility] insurance. CM called [facility] to find out what facilities that they have contracts with was given a list of three facilities. CM called to check facilities and they are all hospital rehab facilities. CM spoke with patients daughter Meño and she stated that she was going to call the patient's CM at [facility] and see if she can find out anything. CM explained that she would keep trying to find a facility. CM will continue to follow and assist as needed with discharge planning / needs. DCP- Discharge Planning Updated by [id number]: Cassandra Ling on 03/21/19 6:[address] Patient Name: CHON LUI Admission Status: ER Accout number: [id number] Admission Date: 03-21-2019 : 1950 Admission Diagnosis: Attending: MARY KAY SARKAR Current LOS: 1 Anticipated DC Date: Planned Disposition: Senior Care Facility Primary Insurance: [employer] Discharge Planning Comments: CM received call today from patient daughter Meño [place]. Meño states that the patient needs placement in SNF and possible long-term care. Meño states that she is not able to take care of patient any longer at home. Meño states that she would like a facility that is close to [facility]. CM explained that we would work from the [facility] outward to find facility that will take a trach patient. Meño stated that if patient gets stronger and can be more independent then she will bring her back home. CM called [facility] in [place] they are not currently taking trach patients. CM sent out referral for [facility] still needing OT eval. CM will continue to follow and assist as needed with discharge planning needs. Senior Lead Java Developer: Cassandra Ling DCPIA - Discharge Planning Initial Assessment Updated by [email or web address]: Cassandra Ling on 03/21/19 7:08 pm * Is the patient Alert and Oriented? Yes * How many steps to enter\exit or inside your home? * Pharmacy [facility] * Preadmission Environment Home with Family * ADLs Partial Dependent * Partial ADLs (Assistance needed) Ambulation Bathing Dressing Eating Medication Management Toileting Transfers * Other Equipment WALKER, W/C, HOME 02, TRACH SUPPLIES, FEEDING SUPPLIES, BSC * List name and contact numbers for known caregivers / representatives who currently or will assist patient after discharge: MEÑO WALDEN - [phone] * Verbal permission to speak to the caregivers and representatives has been obtained from the patient. Yes * Community resources currently utilized Home Health * Please name any agencies selected above. [facility] * Additional services required to return to the preadmission environment? No * Can the patient safely return to the preadmission environment? Yes * Has this patient been hospitalized within the prior 30 days at any hospital? Yes Coverage Notice Reviewer: [id number] Holly Simpson Notice Issued Date-Time: 03/20/2019 16:59 Notice Type: Medicare Outpatient Observation Notice Notice Delivered To: Patient Relationship to Patient: Self Director Of Exhibits Name: Delivery Method: HAND - Hand Delivered Cassandra Days: Prior Verbal Notification: Recipient Understood Notice: Yes Recipient Signature: Yes Med Rec Note Co-signed by Attending: Coverage Notice Comment: MACARIO explained, signed, given, copy placed in MR Last DP export: 03/28/19 1:18 p Patient Name: CHON LUI Page [id number] at 1833 All edits/amendments must be made on the electronic document DICTATION DATE: 03/28/191831 AUTOMOBILE OR TRUCK RENTAL DISPATCHER: NAHUN 03/28/191831 RPT#: [id number] DC DATE: STATUS: ADM IN [facility] [address] [place] [address] END OF REPORT
--- NOTE | 2019-03-28 19:10 | NUR ---
EVENING ROUNDS COMPLETE, PT LAYING IN BED. NO SIGNS OF DISTRESS, PT DENIES ANY PAIN OR NEEDS AT THIS TIME. CL IN REACH, BED IN LOWEST POSITION. CONT WITH POC.
[2019-03-28 21:00] VITALS: BP 121/65
[2019-03-29 06:53] LABS: BASOPHILS 0.3 % (0-2); EOSINOPHILS 0.7 % (0-7); HEMATOCRIT 31.7 % (36.0-48.0); HEMOGLOBIN 10.5 g/dL (12-16); IMMATURE GRANULOCYTES 3.3 % (0-5); LYMPHOCYTES 25.6 % (15-50); MCH 28.1 pg (26.0-34.0); MCHC 33.1 g/dL (31.0-37.0); MCV 84.8 fL (80.0-100.0); MEAN PLATELET VOLUME 8.1 fL (7.4-10.4); MONOCYTES 8.8 % (2-11); NEUTROPHILS 61.3 % (40-80); PLATELET COUNT 313 10x3/uL (130-400); RBC 3.74 10x6/uL (4.00-5.40); WBC 6.1 10x3/uL (4.8-10.8)
[2019-03-29 07:24] LABS: ALBUMIN 2.3 g/dL (3.4-5.0); ALKALINE PHOSPHATASE 97 U/L (46-116); ALT (SGPT) 24 U/L (10-68); BILIRUBIN - TOTAL 0.16 mg/dL (0.2-1.3); CALC OSMOLALITY 276 mosm/kg (275-300); CALCIUM 9.3 mg/dL (8.5-10.1); CARBON DIOXIDE 26.9 mmol/L (21.0-32.0); CHLORIDE - SERUM 100 mmol/L (98-107); CREATININE - SERUM 0.6 mg/dL (0.6-1.3); GLUCOSE 108 mg/dL (74-106); POTASSIUM - SERUM 4.5 mmol/L (3.5-5.1); SODIUM 137 mmol/L (136-145); UREA NITROGEN 17 mg/dL (7-18); eGFR NON AFRICAN AMERICAN > 90 mL/min (90-120)
--- NOTE | 2019-03-29 07:45 | NUR ---
ROUNDING DONE WITH PATIENT BEING IN DROPLET ISOLATION. ON HEART MONITOR SHOWING SR, HR 96. ON ROOM AIR. ON EP, K+ IS 4.5. LEFT IP SEEN WITH SALINE LOCK. TRACH COLLAR SEEN CAPPED. LEFT G TUBE SEEN WITH CLEAN DRESSING ARUOND SITE, CLAMPED. PATIENT REPORTS BOLUS TUBE FEEDING 4 X A DAY. ON LOVENOX. CALL LIGHT AT SIDE.
[2019-03-29 08:11] VITALS: BP 88/43
--- NOTE | 2019-03-29 09:30 | NUR ---
NUTRITION F/U CHART REVIEWED. PT REMAINS IN ISOLATION. NURSING REPORTS PT TOLERATING BOLUS TUBE FEEDS JEVITY 1.5 QID. WILL CONTINUE TO PROVIDE TUBE FEEDS, MONITOR SPEECH THERAPY NOTES FOR POSSIBLE DIET ADVANCEMENT. RD FOLLOWING
--- NOTE | 2019-03-29 10:31 | NUR ---
I CALLED LISA IN INFECTION CONTROL AND SHE STATES THAT PATIENT NEEDS TO STAY IN DROPLET ISOLATION.
[2019-03-29] MEDS ORDERED: VIBRAMYCIN 100100 MG PEG (10:56)
[2019-03-29] MEDS ORDERED: PROTONIX FOR OR40 MG PEG (10:57)
[2019-03-29 12:21] VITALS: BP 94/43
--- NOTE | 2019-03-29 12:43 | NUR ---
I TRIED TO CALL REPORT TO [facility]. THEY STATE THAT THEY HAVE NOT GOTTEN THE FINAL ACCETANCE ON HER EVEN THOUGH ELSA COTTRELL WAS TOLD THEY HAD. SIMBA HUNTER IS CALLING THEM.
--- NOTE | 2019-03-29 14:24 | NUR ---
OT NOTE: PT REQUIRED CGA FOR SUPINE TO SIT. PT COMPLETED EOB SITTING BALANCE WITH CGA/SBA. PT COMPLETED HAIR GROOMING AT EOB WITH SET UP. PT COMPLETED BUE AROM EXS AT EOB. PT STATED SHE WAS GOING TO REHAB TODAY. THANK YOU,CHADWICK BOLAÑOS
--- NOTE | 2019-03-29 14:34 | NUR ---
C/O OF NECK PAIN. REQUESTS TYLENOL. CRUSHED AND GIVEN THROUGH PEG WITH FLUSHING WITH 100 CC WATER BEFORE AND AFTER.
--- NOTE | 2019-03-29 15:28 | NUR ---
DR PRUITT IN TO SEE PATIENT.
[2019-03-29 15:50] VITALS: BP 105/43
--- NOTE | 2019-03-29 19:03 | NUR ---
EVENING ROUNDS COMPLETE. PT IS LAYING IN BED, NO SIGNS OF DISTRESS. PT DENIES ANY PAIN AT THIS TIME. CL IN REACH, BED IN LOWEST POSITION. CONT WITH POC.
--- NOTE | 2019-03-29 20:30 | NUR ---
PT REFUSES SCD'S AT THIS TIME. CONT WITH POC.
--- NOTE | 2019-03-29 20:58 | MORECARE ---
CASE MANAGEMENT DISCHARGE SUMMARY PATIENT: CHON LUI UNIT: [id number] ADM DATE: 03/21/19 AGE: 68 : 50 SEX: F ROOM/BED: D.1210 AUTHOR: MONET,DOC PHYSICIAN: REFERRING PHYSICIAN: MARY KAY SARKAR MD DATE OF SERVICE: 03/29/19 Discharge Plan Patient Name: CHON LUI Facility: [facility]:[place] : 1950 Planned Disposition: [facility] Facility Anticipated Discharge Date: Discharge Date: Expected LOS: Initial Reviewer: [email or web address] Initial Review Date: 03/21/2019 Generated: 03/29/19 9:58 pm Comments DCP- Discharge Planning Updated by [id number]: Cassandra Ling on 03/29/19 7:[address] CM received call from Catina Daniel Liaison for [facility]. Catina stated that she needed questions answered regarding patients trach. CM had respiratory speak to Aleta the system administrator at facility so they could order the correct equipment for patient. [facility] did explain that patient is in droplet isolation for MRSA. CM received call that all we need is discharge order and that the facility will transport patient when ready. CM called back to Catina and left message that discharge order has been received and will plan for discharge around 1330. D/C IMM explained and served 03/29/19 @ 1120. ELSA called and left message for patient daughter Tanna that patient has been accepted and will be transferred most likely today. Nursing called [facility] and reported that they had attempted to call report to facility and was told that they haven't accepted patient yet. ELSA then called Aleta system administrator to find out what the problem is. Aleta stated that they are waiting for a PA from insurance. [facility]SA was later notified that facility has just sent off for auth at 1430 today. Patient will be delayed discharge d/t auth pending for SNF. CM will continue to follow and assist as needed with discharge planning / needs. DCP- Discharge Planning Updated by [email or web address]: Cassandra Ling on 03/28/19 5:[address] CM received call back from [facility], [place], [facility] all denied patient either d/t [employer] insurance not being in network and her not having out of network benefits. or d/t the patient having a trach. [facility]) are suppose to within network. CM called and spoke with Emily to find out if they would accept patient with trach and [employer] insurance. CM faxed over records and awaiting determination. CM will continue to follow and assist as needed with discharge planning / needs. DCP- Discharge Planning Updated by [email or web address]: Cassandra Ling on 03/27/19 3:[address] CM received order for Inpatient Rehab but considering patient was just discharged from acute rehab facility then potential for denial to rehab is high. CM sent out information packet out to [facility], [facility], [facility], [facility], and [facility]. CM will see if any of these facilities will accept patient and insurance. CM awaiting decision from facilities. CM will continue to follow and assist in discharge planning / needs. DCP- Discharge Planning Updated by [id number]: Cassandra Ling on 03/24/19 9:[address] LATE ENTRY 03/22/19 -03/24/19 CM has contacted several [facility] - denied, [place] - denied, Allie Bolivar with [facility] - denied. Allie state that she doesn't know any facility that accepts [employer] insurance. CM called [facility] to find out what facilities that they have contracts with was given a list of three facilities. CM called to check facilities and they are all hospital rehab facilities. CM spoke with patients daughter Meño and she stated that she was going to call the patient's CM at [facility] and see if she can find out anything. CM explained that she would keep trying to find a facility. CM will continue to follow and assist as needed with discharge planning / needs. DCP- Discharge Planning Updated by [id number]: Cassandra Ling on 03/21/19 6:[address] Patient Name: CHON LUI Admission Status: ER Accout number: [id number] Admission Date: 03-21-2019 : 1950 Admission Diagnosis: Attending: MARY KAY SARKAR Current LOS: 1 Anticipated DC Date: Planned Disposition: [facility] Facility Primary Insurance: [employer] Discharge Planning Comments: CM received call today from patient daughter Meño [place]. Meño states that the patient needs placement in SNF and possible long-term care. Meño states that she is not able to take care of patient any longer at home. Meño states that she would like a facility that is close to [facility]. CM explained that [place] to find facility that will take a trach patient. Meño stated that if patient gets stronger and can be more independent then she will bring her back home. CM called [facility] in [place] they are not currently taking trach patients. CM sent out referral for [facility] still needing OT eval. CM will continue to follow and assist as needed with discharge planning needs. Welding Process Specialist: Cassandra HUDDLESTON - Discharge Planning Initial Assessment Updated by [email or web address]: Cassandra Ling on 03/21/19 7:08 pm * Is the patient Alert and Oriented? Yes * How many steps to enter\exit or inside your home? * Pharmacy [facility] * Preadmission Environment Home with Family * ADLs Partial Dependent * Partial ADLs (Assistance needed) Ambulation Bathing Dressing Eating Medication Management Toileting Transfers * Other Equipment WALKER, W/C, HOME 02, TRACH SUPPLIES, FEEDING SUPPLIES, BSC * List name and contact numbers for known caregivers / representatives who currently or will assist patient after discharge: MEÑO BLUE - DAUGHTER - [phone] * Verbal permission to speak to the caregivers and representatives has been obtained from the patient. Yes * Community resources currently utilized Home Health * Please name any agencies selected above. [facility] * Additional services required to return to the preadmission environment? No * Can the patient safely return to the preadmission environment? Yes * Has this patient been hospitalized within the prior 30 days at any hospital? Yes Coverage Notice Reviewer: [id number] - Maryse Simpson Notice Issued Date-Time: 03/20/2019 16:59 Notice Type: Medicare Outpatient Observation Notice Notice Delivered To: Patient Relationship to Patient: Self Assistant Terminal Manager Name: Delivery Method: HAND - Hand Delivered Cassandra Days: Prior Verbal Notification: Recipient Understood Notice: Yes Recipient Signature: Yes Med Rec Note Co-signed by Attending: Coverage Notice Comment: SORTO explained, signed, given, copy placed in MR Reviewer: [id number] - Cassandra Sushil Notice Issued Date-Time: 03/29/2019 11:20 Notice Type: IM Discharge Notice Notice Delivered To: Patient Relationship to Patient: Self Assistant Terminal Manager Name: Delivery Method: HAND - Hand Delivered Cassandra Days: Prior Verbal Notification: Recipient Understood Notice: Yes Recipient Signature: Yes Med Rec Note Co-signed by Attending: Coverage Notice Comment: Last DP export: 03/28/19 5:32 p Patient Name: CHON LUI Page [id number] at 2058 All edits/amendments must be made on the electronic document DICTATION DATE: 03/29/192056 RISK CONTROL DIRECTOR: NAHUN 03/29/192056 RPT#: [id number] MD DATE: STATUS: ADM IN [facility] [address] [place] [address] END OF REPORT
[2019-03-30 00:06] VITALS: BP 106/64; BP 147/68
[2019-03-30 06:16] VITALS: BP 101/53
[2019-03-30 06:23] LABS: BASOPHILS 0.4 % (0-2); EOSINOPHILS 0.6 % (0-7); HEMATOCRIT 31.9 % (36.0-48.0); HEMOGLOBIN 10.4 g/dL (12-16); IMMATURE GRANULOCYTES 2.6 % (0-5); LYMPHOCYTES 24.7 % (15-50); MCHC 32.6 g/dL (31.0-37.0); MCV 85.8 fL (80.0-100.0); MEAN PLATELET VOLUME 8.4 fL (7.4-10.4); NEUTROPHILS 61.7 % (40-80); PLATELET COUNT 313 10x3/uL (130-400); RBC 3.72 10x6/uL (4.00-5.40); RDW 20.3 % (11.5-14.5); WBC 6.9 10x3/uL (4.8-10.8)
[2019-03-30 06:46] LABS: ALBUMIN 2.3 g/dL (3.4-5.0); ALKALINE PHOSPHATASE 98 U/L (46-116); ALT (SGPT) 29 U/L (10-68); BILIRUBIN - TOTAL 0.17 mg/dL (0.2-1.3); CALC OSMOLALITY 266 mosm/kg (275-300); CALCIUM 9.1 mg/dL (8.5-10.1); CHLORIDE - SERUM 97 mmol/L (98-107); CREATININE - SERUM 0.7 mg/dL (0.6-1.3); GLUCOSE 103 mg/dL (74-106); POTASSIUM - SERUM 4.6 mmol/L (3.5-5.1); PROTEIN - SERUM 7.1 g/dL (6.4-8.2); SODIUM 133 mmol/L (136-145); UREA NITROGEN 15 mg/dL (7-18); eGFR NON AFRICAN AMERICAN 88 mL/min (90-120)
--- NOTE | 2019-03-30 07:10 | NUR ---
ROUNDING DONE WITH PATIENT BEING IN DROPLET ISOLATION FOR MRSA SPUTUM. PATIENT HAS EYES CLOSED, RESP ARE EVEN. ON HEART MONITOR SHOWING SR, HR 91. ON ROOM AIR. LEFT IP SEEN WITH INTACT DRESSING, SALINE LOCK. ON EP, K+ IS 4.6. LEFT G TUBE SEEN CLAMPED, BOLUS TUBE FEEDING WILL BE DONE. PATIENT IS INCONT. OF URINE AND STOOL. ON LOVENOX.
[2019-03-30 08:29] VITALS: BP 87/50
[2019-03-30 11:03] VITALS: BP 99/49
--- NOTE | 2019-03-30 12:38 | NUR ---
PATIENT HAS BEEN USING THE BEDPAN FOR THIS ENITRE SHIFT AT THIS TIME. SHE WAS INCONT. OF URINE TO START SHIFT SHE JUST WOKE UP. BOTTOM IS LOOKING BETTER WITH NYSTATIN POWDER. WILL CPOC.
--- NOTE | 2019-03-30 15:28 | NUR ---
OT NOTE: PT COMPLETED SUPINE TO SIT WITH MIN A. PT COMPLETED EOB SITTING WITH SBA. PT COMPLETED BUE AROM EX AT EOB WITH SBA. PT COMPLETED GROOMING TASK AT EOB WITH SBA. PT EXHIBITS FAIR ACTIVITY TOLERANCE WITH THE NEED FOR SEVERAL BREAKS WITH ACTIVITY. THANK YOU, CHADWICK BOLAÑOS
[2019-03-30 16:02] VITALS: BP 92/41
--- NOTE | 2019-03-30 16:53 | NUR ---
PATIENT HAS BEEN CONTINENT THIS SHIFT. TOLERATED BOLUS TUBE FEEDINGS OF JEVITY 1.5 WITH 90 CC WATER FLUSH BEFORE AND AFTER EACH FEEDING ALONG WITH SAME WITH MEDS. NO RESIDUALS WHEN CHECKED.
--- NOTE | 2019-03-30 16:57 | MORECARE ---
CASE MANAGEMENT DISCHARGE SUMMARY PATIENT: CHON LUI UNIT: [id number] ADM DATE: 03/21/19 AGE: 68 : 50 SEX: F ROOM/BED: D.1210 AUTHOR: MONET,DOC PHYSICIAN: REFERRING PHYSICIAN: MARY KAY SARKAR MD DATE OF SERVICE: 03/30/19 Discharge Plan Patient Name: CHON LUI Facility: [facility]:[place] : 1950 Planned Disposition: Shelter Facility Anticipated Discharge Date: Discharge Date: Expected LOS: Initial Reviewer: [email or web address] Initial Review Date: 03/21/2019 Generated: 03/30/19 5:57 pm Comments DCP- Discharge Planning Updated by [email or web address]: Cassandra Ling on 03/30/19 3:[address] CM spoke with Catina requesting update on auth. CM faxed over updates. Still awaiting auth approval. Dinh Cisse will meet with Catina this evening to sign admission papers. ELSA will continue to follow and assist as needed with discharge planning / needs. DCP- Discharge Planning Updated by [email or web address]: Cassandra Ling on 03/29/19 7:[address] CM received call from Catina Daniel Liaison for [facility]. Catina stated that she needed questions answered regarding patients trach. CM had respiratory speak to Aleta the practice administrator at facility so they could order the correct equipment for patient. ELSA did explain that patient is in droplet isolation for MRSA. CM received call that all we need is discharge order and that the facility will transport patient when ready. CM called back to Catina and left message that discharge order has been received and will plan for discharge around 1330. D/C IMM explained and served 03/29/19 @ 1120. ELSA called and left message for patient dinh Cisse that patient has been accepted and will be transferred most likely today. Nursing called ELSA and reported that they had attempted to call report to facility and was told that they haven't accepted patient yet. ELSA then called Aleta practice administrator to find out what the problem is. Aleta stated that they are waiting for a PA from insurance. ELSA was later notified that facility has just sent off for auth at 1430 today. Patient will be delayed discharge d/t auth pending for SNF. CM will continue to follow and assist as needed with discharge planning / needs. DCP- Discharge Planning Updated by [email or web address]: Cassandra Ling on 03/28/19 5:[address] CM received call back from [place], [facility], [place], [facility] all denied patient either d/t [employer] insurance not being in network and her not having out of network benefits. or d/t the patient having a trach. [facility] ([facility]) are suppose to within network. CM called and spoke with Emily to find out if they would accept patient with trach and [employer] insurance. CM faxed over records and awaiting determination. CM will continue to follow and assist as needed with discharge planning / needs. DCP- Discharge Planning Updated by [email or web address]: Cassandra Ling on 03/27/19 3:[address] CM received order for Inpatient Rehab but considering patient was just discharged from acute rehab facility then potential for denial to rehab is high. CM sent out information packet out to [facility], [facility], [facility], [facility], and [facility]. CM will see if any of these facilities will accept patient and insurance. CM awaiting decision from facilities. CM will continue to follow and assist in discharge planning / needs. DCP- Discharge Planning Updated by [id number]: Cassandra Ling on 03/24/19 9:[address] LATE ENTRY 03/22/19 -03/24/19 CM has contacted several SNF [facility] - denied, [place] - denied, Allie Boliavr with [facility] - denied. Allie state that she doesn't know any facility that accepts [employer] insurance. CM called [facility] to find out what facilities that they have contracts with was given a list of three facilities. CM called to check facilities and they are all hospital rehab facilities. CM spoke with patients daughter Meño and she stated that she was going to call the patient's CM at [facility] and see if she can find out anything. CM explained that she would keep trying to find a facility. CM will continue to follow and assist as needed with discharge planning / needs. DCP- Discharge Planning Updated by [id number]: Cassandra Ling on 03/21/19 6:[address] Patient Name: CHON LUI Admission Status: ER Accout number: [id number] Admission Date: 03-21-2019 : 1950 Admission Diagnosis: Attending: MARY KAY SARKAR Current LOS: 1 Anticipated DC Date: Planned Disposition: Shelter Facility Primary Insurance: [facility] Discharge Planning Comments: CM received call today from patient daughter Meño [place]. Meño states that the patient needs placement in SNF and possible long-term care. Meño states that she is not able to take care of patient any longer at home. Meño states that she would like a facility that is close to [facility]. CM explained that we would work from the [facility] outward to find facility that will take a trach patient. Meño stated that if patient gets stronger and can be more independent then she will bring her back home. CM called [facility] in [place] they are not currently taking trach patients. CM sent out referral for [facility] still needing OT eval. CM will continue to follow and assist as needed with discharge planning needs. Belt Turner: Cassandra Sushil ORTIZA - Discharge Planning Initial Assessment Updated by [id number]: Cassandra Sushil on 03/21/19 7:08 pm * Is the patient Alert and Oriented? Yes * How many steps to enter\exit or inside your home? * Pharmacy [facility] * Preadmission Environment Home with Family * ADLs Partial Dependent * Partial ADLs (Assistance needed) Ambulation Bathing Dressing Eating Medication Management Toileting Transfers * Other Equipment WALKER, W/C, HOME 02, TRACH SUPPLIES, FEEDING SUPPLIES, BSC * List name and contact numbers for known caregivers / representatives who currently or will assist patient after discharge: MEÑO BLUE - DINH - [phone] * Verbal permission to speak to the caregivers and representatives has been obtained from the patient. Yes * Community resources currently utilized Home Health * Please name any agencies selected above. [facility] * Additional services required to return to the preadmission environment? No * Can the patient safely return to the preadmission environment? Yes * Has this patient been hospitalized within the prior 30 days at any hospital? Yes Coverage Notice Reviewer: [id number] Holly Simpson Notice Issued Date-Time: 03/20/2019 16:59 Notice Type: Medicare Outpatient Observation Notice Notice Delivered To: Patient Relationship to Patient: Self Millwright Instructor Name: Delivery Method: HAND - Hand Delivered Cassandra Days: Prior Verbal Notification: Recipient Understood Notice: Yes Recipient Signature: Yes Med Rec Note Co-signed by Attending: Coverage Notice Comment: MACARIO explained, signed, given, copy placed in MR Reviewer: [id number] - Cassandra Ling Notice Issued Date-Time: 03/29/2019 11:20 Notice Type: IM Discharge Notice Notice Delivered To: Patient Relationship to Patient: Self Millwright Instructor Name: Delivery Method: HAND - Hand Delivered Cassandra Days: Prior Verbal Notification: Recipient Understood Notice: Yes Recipient Signature: Yes Med Rec Note Co-signed by Attending: Coverage Notice Comment: Last DP export: 03/29/19 7:58 p Patient Name: CHON LUI Page [id number] at 1657 All edits/amendments must be made on the electronic document DICTATION DATE: 03/30/191655 PIPE LINER: NAHUN 03/30/191655 RPT#: [id number] [place] DATE: STATUS: ADM IN [facility] [address] [place] [address] END OF REPORT
--- NOTE | 2019-03-30 18:37 | NUR ---
COMPLETE BED LINEN CHANGE DONE FOR INCONT. OF LOOSE STOOL. FAMILY MEMBERS AT BEDSIDE.
--- NOTE | 2019-03-30 19:00 | NUR ---
EVENING ROUNDS COMPLETE. PT LAYING IN BED, NO SIGNS OF DISTRESS. VSS, NO C/O PAIN AT THIS TIME. PT DENIES ANY NEEDS. CL IN REACH, BED IN LOWEST POSITION, RENETTA ALARM ON. CONT WITH POC.
[2019-03-31 03:31] VITALS: BP 106/70
--- NOTE | 2019-03-31 08:22 | NUR ---
PT ASSISTED TO SITTING POSITION AND TF ADMINISTERED PER ORDERS. PT HAD INCONT BM X3 AND VOIDED ONCE ON BEDPAN WHILE THIS NURSE WAS IN ROOM. PT CLEANED AND NYSTATIN APPLIED TO BOTTOM. PT DENIES NEEDS AT THIS TIME. WCTM.
[2019-03-31 08:51] VITALS: BP 114/59
--- NOTE | 2019-03-31 09:20 | NUR ---
PT AM MEDS ADMINISTERED BY TUBE. PRN TYLENOL ADMINISTERED AT THIS TIME. WCTM.
--- NOTE | 2019-03-31 10:51 | NUR ---
CALLED REPORT TO [facility].
[2019-03-31 12:01] VITALS: BP 92/43
--- NOTE | 2019-03-31 12:58 | NUR ---
AMBULANCE PICKED UP PT FOR TRANSPORT TO [facility]. PAPERWORK SENT WITH LUMBER DRIVER.
--- NOTE | 2019-03-31 17:28 | MORECARE ---
CASE MANAGEMENT DISCHARGE SUMMARY PATIENT: CHON LUI UNIT: [id number] ADM DATE: 03/21/19 AGE: 68 : 50 SEX: F ROOM/BED: D.1210 AUTHOR: MONET,DOC PHYSICIAN: REFERRING PHYSICIAN: MARY KAY SARKAR MD DATE OF SERVICE: 03/31/19 Discharge Plan Patient Name: CHON LUI Facility: [facility]:[place] : 1950 Planned Disposition: Halfway Facility Anticipated Discharge Date: 03/31/19 Discharge Date: 03/31/2019 Expected LOS: 10 Initial Reviewer: [id number] Initial Review Date: 03/21/2019 Generated: 03/31/19 6:28 pm DCP- Discharge Planning Updated by [id number]: Cassandra Ling on 03/30/19 3:[address] CM spoke with Catina requesting update on auth. CM faxed over updates. Still awaiting auth approval. Dinh Cisse will meet with Catina this evening to sign admission papers. ELSA will continue to follow and assist as needed with discharge planning / needs. DCP- Discharge Planning Updated by [id number]: Cassandra Ling on 03/29/19 7:[address] CM received call from Catina Daniel Liaison for [facility]. Catina stated that she needed questions answered regarding patients trach. CM had respiratory speak to Aleta the long term care administrator at facility so they could order the correct equipment for patient. ELSA did explain that patient is in droplet isolation for MRSA. CM received call that all we need is discharge order and that the facility will transport patient when ready. ELSA called back to Catina and left message that discharge order has been received and will plan for discharge around 1330. D/C IMM explained and served 03/29/19 @ 1120. ELSA called and left message for patient dinh Cisse that patient has been accepted and will be transferred most likely today. Nursing called ELSA and reported that they had attempted to call report to facility and was told that they haven't accepted patient yet. ELSA then called Aleta long term care administrator to find out what the problem is. Aleta stated that they are waiting for a PA from insurance. CM was later notified that facility has just sent off for auth at 1430 today. Patient will be delayed discharge d/t auth pending for SNF. CM will continue to follow and assist as needed with discharge planning / needs. DCP- Discharge Planning Updated by [id number]: Cassandra Ling on 03/28/19 5:[address] CM received call back from [place], [facility], [facility], [facility] all denied patient either d/t [employer] insurance not being in network and her not having out of network benefits. or d/t the patient having a trach. [facility] ([facility]) are suppose to within network. CM called and spoke with Emily to find out if they would accept patient with trach and [employer] insurance. CM faxed over records and awaiting determination. CM will continue to follow and assist as needed with discharge planning / needs. DCP- Discharge Planning Updated by [id number]: Cassandra Ling on 03/27/19 3:[address] CM received order for Inpatient Rehab but considering patient was just discharged from acute rehab facility then potential for denial to rehab is high. CM sent out information packet out to [facility], [facility], [facility], [facility], and [facility]. CM will see if any of these facilities will accept patient and insurance. CM awaiting decision from facilities. CM will continue to follow and assist in discharge planning / needs. DCP- Discharge Planning Updated by [id number]: Cassandra Ling on 03/24/19 9:[address] LATE ENTRY 03/22/19 -03/24/19 CM has contacted several SNF [facility] - denied, [facility] - denied, Allie Bolivar with [facility] - denied. Allie state that she doesn't know any facility that accepts [employer] insurance. CM called [facility] to find out what facilities that they have contracts with was given a list of three facilities. CM called to check facilities and they are all hospital rehab facilities. CM spoke with patients daughter Meño and she stated that she was going to call the patient's CM at [facility] and see if she can find out anything. CM explained that she would keep trying to find a facility. CM will continue to follow and assist as needed with discharge planning / needs. DCP- Discharge Planning Updated by [id number]: Cassandra Ling on 03/21/19 6:[address] Patient Name: CHON LUI Admission Status: ER Accout number: [id number] Admission Date: 03-21-2019 : 1950 Admission Diagnosis: Attending: MARY KAY SARKAR Current LOS: 1 Anticipated DC Date: Planned Disposition: Halfway Facility Primary Insurance: [id number] Discharge Planning Comments: CM received call today from patient daughter Meño [place]. Meño states that the patient needs placement in SNF and possible long-term care. Meño states that she is not able to take care of patient any longer at home. Meño states that she would like a facility that is close to [facility]. CM explained that we would work from the [facility] outward to find facility that will take a trach patient. Meño stated that if patient gets stronger and can be more independent then she will bring her back home. CM called [facility] in [place] they are not currently taking trach patients. CM sent out referral for [facility] still needing OT eval. CM will continue to follow and assist as needed with discharge planning needs. Supervisor Show Operations: Cassandra Ling DCPIA - Discharge Planning Initial Assessment Updated by [email or web address]: Cassandra Sushil on 03/21/19 7:08 pm * Is the patient Alert and Oriented? Yes * How many steps to enter\exit or inside your home? * Pharmacy [facility] * Preadmission Environment Home with Family * ADLs Partial Dependent * Partial ADLs (Assistance needed) Ambulation Bathing Dressing Eating Medication Management Toileting Transfers * Other Equipment WALKER, W/C, HOME 02, TRACH SUPPLIES, FEEDING SUPPLIES, BSC * List name and contact numbers for known caregivers / representatives who currently or will assist patient after discharge: MEÑO BLUE - DINH - [phone] * Verbal permission to speak to the caregivers and representatives has been obtained from the patient. Yes * Community resources currently utilized Home Health * Please name any agencies selected above. [facility] * Additional services required to return to the preadmission environment? No * Can the patient safely return to the preadmission environment? Yes * Has this patient been hospitalized within the prior 30 days at any hospital? Yes Coverage Notice Reviewer: [id number] Holly Simpson Notice Issued Date-Time: 03/20/2019 16:59 Notice Type: Medicare Outpatient Observation Notice Notice Delivered To: Patient Relationship to Patient: Self Experience Specialist Name: Delivery Method: HAND - Hand Delivered Cassandra Days: Prior Verbal Notification: Recipient Understood Notice: Yes Recipient Signature: Yes Med Rec Note Co-signed by Attending: Coverage Notice Comment: MACARIO explained, signed, given, copy placed in MR Reviewer: [id number] Holly Ling Notice Issued Date-Time: 03/29/2019 11:20 Notice Type: IM Discharge Notice Notice Delivered To: Patient Relationship to Patient: Self Experience Specialist Name: Delivery Method: HAND - Hand Delivered Cassandra Days: Prior Verbal Notification: Recipient Understood Notice: Yes Recipient Signature: Yes Med Rec Note Co-signed by Attending: Coverage Notice Comment: Last DP export: 03/30/19 3:57 p Patient Name: CHON LUI Page [id number] at 1728 All edits/amendments must be made on the electronic document DICTATION DATE: 03/31/191727 OILING MACHINE OPERATOR: NAHUN 03/31/191727 RPT#: [id number] DC DATE:03/31/19 STATUS: DIS IN [facility] [address] [place] [address] END OF REPORT
--- NOTE | 2019-03-31 17:45 | MORECARE ---
CASE MANAGEMENT DISCHARGE SUMMARY PATIENT: CHON LUI UNIT: [id number] ADM DATE: 03/21/19 AGE: 68 : 50 SEX: F ROOM/BED: D.1210 AUTHOR: MONET,DOC PHYSICIAN: REFERRING PHYSICIAN: MARY KAY SARKAR MD DATE OF SERVICE: 03/31/19 Discharge Plan Patient Name: CHON LUI Facility: [facility]:[place] : 1950 Planned Disposition: [facility] Facility Anticipated Discharge Date: 03/31/19 Discharge Date: 03/31/2019 Expected LOS: 10 Initial Reviewer: [id number] Initial Review Date: 03/21/2019 Generated: 03/31/19 6:44 pm Comments DCP- Discharge Planning Updated by [id number]: Daria Acuna on 03/31/19 4:[address] LATE ENTRY 1030 CM CALLED [facility] REGARDING AUTH. [facility] ADVIS[facility]IENT AUTH HAD BEEN RECEIVED. PLAN FOR [facility] TO PROVIDE TRANSPORTATION AT NOON. NURSE PROVIDED WITH CONTACT PHONE NUMBER TO CALL REPORT. 1200 CM RECEIVED TELEPHONE CALL THAT THE PATIENT WILL NEED TO COME BY AMBULANCE. THE TRANSPORT VAN WAS BROKEN. NURSING FACILITY TO ASSUME COST FOR TRANSPORT. PCS FORM COMPLETED. ADVISED THE PRIMARY NURSE. TC TO [facility] FOR SERVICE. PLAN FOR 1230 TRANSPORT. CM ADVISED PRIMARY NURSE. PATIENT DISCHARGED TO SKILLED FACILITY. DCP- Discharge Planning Updated by [email or web address]: Cassandra Ling on 03/30/19 3:[address] CM spoke with Arron requesting update on auth. CM faxed over updates. Still awaiting auth approval. Daughter Tanna will meet with Arron this evening to sign admission papers. CM will continue to follow and assist as needed with discharge planning / needs. DCP- Discharge Planning Updated by [id number]: Cassandra Ling on 03/29/19 7:[address] CM received call from Arron Daniel Liaison for [facility] and [facility]. Arron stated that she needed questions answered regarding patients trach. CM had respiratory speak to Aleta the construction administrator at facility so they could order the correct equipment for patient. CM did explain that patient is in droplet isolation for MRSA. CM received call that all we need is discharge order and that the facility will transport patient when ready. CM called back to Arron and left message that discharge order has been received and will plan for discharge around 1330. D/C IMM explained and served 03/29/19 @ 1120. CM called and left message for patient daughter Tanna that patient has been accepted and will be transferred most likely today. Nursing called CM and reported that they had attempted to call report to facility and was told that they haven't accepted patient yet. CM then called Aleta construction administrator to find out what the problem is. Aleta stated that they are waiting for a PA from insurance. CM was later notified that facility has just sent off for auth at 1430 today. Patient will be delayed discharge d/t auth pending for SNF. CM will continue to follow and assist as needed with discharge planning / needs. DCP- Discharge Planning Updated by [id number]: Cassandra Ling on 03/28/19 5:[address] CM received call back from [facility], [facility], [facility], [facility] all denied patient either d/t [employer] insurance not being in network and her not having out of network benefits. or d/t the patient having a trach. [facility] are suppose to within network. CM called and spoke with Emily to find out if they would accept patient with trach and [employer] insurance. CM faxed over records and awaiting determination. CM will continue to follow and assist as needed with discharge planning / needs. DCP- Discharge Planning Updated by [id number]: Cassandra Ling on 03/27/19 3:[address] CM received order for Inpatient Rehab but considering patient was just discharged from acute rehab facility then potential for denial to rehab is high. CM sent out information packet out to [facility], [facility], [facility], [facility], and [facility]. CM will see if any of these facilities will accept patient and insurance. CM awaiting decision from facilities. CM will continue to follow and assist in discharge planning / needs. DCP- Discharge Planning Updated by [id number]: Cassandra Ling on 03/24/19 9:[address] LATE ENTRY 03/22/19 -03/24/19 CM has contacted several SNF [facility] - denied, [facility] - denied, Allie Bolivar with [facility] - denied. Allie state that she doesn't know any facility that accepts [facility]. CM called [facility] to find out what facilities that they have contracts with was given a list of three facilities. CM called to check facilities and they are all hospital rehab facilities. CM spoke with patients daughter Meño and she stated that she was going to call the patient's CM at [facility] and see if she can find out anything. CM explained that she would keep trying to find a facility. CM will continue to follow and assist as needed with discharge planning / needs. DCP- Discharge Planning Updated by [id number]: Cassandra Ling on 03/21/19 6:[address] Patient Name: CHON LUI Admission Status: ER Accout number: [id number] Admission Date: 03-21-2019 : 1950 Admission Diagnosis: Attending: MARY KAY SARKAR Current LOS: 1 Anticipated DC Date: Planned Disposition: [facility] Facility Primary Insurance: [employer] Discharge Planning Comments: CM received call today from patient daughter Meño [place]. Meño states that the patient needs placement in SNF and possible long-term care. Meño states that she is not able to take care of patient any longer at home. Meño states that she would like a facility that is close to [facility]. CM explained that we would work from the [facility] outward to find facility that will take a trach patient. Meño stated that if patient gets stronger and can be more independent then she will bring her back home. CM called [facility] in [place] they are not currently taking trach patients. CM sent out referral for [facility] still needing OT eval. CM will continue to follow and assist as needed with discharge planning needs. Rn Concurrent Review: Cassandra Ling DCPIA - Discharge Planning Initial Assessment Updated by [id number]: Cassandra Ling on 03/21/19 7:08 pm * Is the patient Alert and Oriented? Yes * How many steps to enter\exit or inside your home? * Pharmacy [facility] * Preadmission Environment Home with Family * ADLs Partial Dependent * Partial ADLs (Assistance needed) Ambulation Bathing Dressing Eating Medication Management Toileting Transfers * Other Equipment WALKER, W/C, HOME 02, TRACH SUPPLIES, FEEDING SUPPLIES, BSC * List name and contact numbers for known caregivers / representatives who currently or will assist patient after discharge: MÑEO WALDEN - [phone] * Verbal permission to speak to the caregivers and representatives has been obtained from the patient. Yes * Community resources currently utilized Home Health * Please name any agencies selected above. [facility] * Additional services required to return to the preadmission environment? No * Can the patient safely return to the preadmission environment? Yes * Has this patient been hospitalized within the prior 30 days at any hospital? Yes Coverage Notice Reviewer: [id number] Holly Simpson Notice Issued Date-Time: 03/20/2019 16:59 Notice Type: Medicare Outpatient Observation Notice Notice Delivered To: Patient Relationship to Patient: Self Military Technology Specialist Name: Delivery Method: HAND - Hand Delivered Cassandra Days: Prior Verbal Notification: Recipient Understood Notice: Yes Recipient Signature: Yes Med Rec Note Co-signed by Attending: Coverage Notice Comment: SORTO explained, signed, given, copy placed in MR Reviewer: [id number] Holly Ling Notice Issued Date-Time: 03/29/2019 11:20 Notice Type: IM Discharge Notice Notice Delivered To: Patient Relationship to Patient: Self Military Technology Specialist Name: Delivery Method: HAND - Hand Delivered Cassandra Days: Prior Verbal Notification: Recipient Understood Notice: Yes Recipient Signature: Yes Med Rec Note Co-signed by Attending: Coverage Notice Comment: Last DP export: 03/31/19 4:28 p Patient Name: CHON LUI Page 36811 at 1745 All edits/amendments must be made on the electronic document DICTATION DATE: 03/31/191743 MILLWRIGHT SUPERVISOR: NAHUN 03/31/191743 RPT#: [id number] DC DATE:03/31/19 STATUS: DIS IN [facility] [address] [place] [address] END OF REPORT
== END 2019-03-31 12:59 | DRG 177 ==
LOC: D.ER 17:52 → OBSVTIME 20:34 → D.M3 20:34
PROVIDERS: Emergency Medicine; Internal Medicine Pulmonary Disease; ADMIT Internal Medicine Nephrology; ATTEND Internal Medicine Nephrology
DX: J15.212 Pneumonia due to Methicillin resistant Staphylococcus aureus (principal); J96.21 Acute and chronic respiratory failure with hypoxia; E43 Unspecified severe protein-calorie malnutrition; I50.23 Acute on chronic systolic (congestive) heart failure; N17.9 Acute kidney failure, unspecified; E87.1 Hypo-osmolality and hyponatremia; J44.1 Chronic obstructive pulmonary disease with (acute) exacerbation; I47.1 Supraventricular tachycardia; R53.1 Weakness; Z99.81 Dependence on supplemental oxygen; Z68.21 Body mass index [BMI] 21.0-21.9, adult; D50.9 Iron deficiency anemia, unspecified; K21.9 Gastro-esophageal reflux disease without esophagitis; R51 Headache; M54.2 Cervicalgia; R19.7 Diarrhea, unspecified; E03.9 Hypothyroidism, unspecified; I95.9 Hypotension, unspecified; Z93.0 Tracheostomy status; Z85.118 Personal history of other malignant neoplasm of bronchus and lung; Z85.89 Personal history of malignant neoplasm of other organs and systems

== ENCOUNTER → 2019-05-08 12:39 | Outpatient (CLI) | payer OTHER ==
[2019-03-20 17:13] VITALS: BMI 21.2
[~2019-05-08 12:39] MED LIST changes: +LASIX 40 M40 MG/5 ML PT; +PROTONIX FOR OR40 MG PEG; +VIBRAMYCIN 100100 MG PEG
== END | disposition home or self-care (01) ==
LOC: D.RAD 12:39
PROVIDERS: ATTEND Legal Medicine
DX: R13.10 Dysphagia, unspecified (principal)

== ENCOUNTER 2019-06-30 13:48 | Emergency (ER) | payer OTHER ==
[~2019-06-30] VITALS: Ht 160 cm; Wt 50.0 kg
[2019-06-30 13:59] VITALS: Ht 160 cm; Wt 50.0 kg
[2019-06-30] MEDS ORDERED: MELATONIN5 MG PEG (14:02)
[2019-06-30] MEDS ORDERED: MYLANTA / MAALO30 ML PO (14:03)
[2019-06-30] MEDS ORDERED: SULFAMETHOXAZOL1 TA2 PEG (14:03)
[2019-06-30] MEDS ORDERED: NYSTATIN OINTME15 GM TOPICAL (14:04)
[2019-06-30] MEDS ORDERED: PROMOD LIQUID P30 M1 PEG (14:04)
[2019-06-30] MEDS ORDERED: THERMOTABS 1 GM1 GM PEG (14:05)
[2019-06-30] MEDS ORDERED: IMODIUM2 MG PEG (14:06)
[2019-06-30 17:14] VITALS: BP 102/50
== END 2019-06-30 16:50 | disposition home or self-care (01) ==
LOC: D.ER 13:48
DX: K94.23 Gastrostomy malfunction (principal); Y83.9 Surgical procedure, unspecified as the cause of abnormal reaction of the patient, or of later complication, without mention of misadventure at the time of the procedure

== ENCOUNTER 2019-07-01 16:31 | Inpatient (IN) | payer OTHER, MEDICAID ==
[~2019-07-01] VITALS: Ht 160 cm; Wt 49.9 kg
[~2019-07-01 16:31] MED LIST changes: +IMODIUM2 MG PEG; +MELATONIN5 MG PEG; +MYLANTA / MAALO30 ML PO; +NYSTATIN OINTME15 GM TOPICAL; +PROMOD LIQUID P30 M1 PEG; +SULFAMETHOXAZOL1 TA2 PEG; +THERMOTABS 1 GM1 GM PEG
--- NOTE | 2019-07-01 16:48 | NUR ---
PT SUCTIONED THROUGH TRACH PER RESPATORY , TRACH CLEANED, NEW DRESSING APPLIED VIA RESP TECH, O2@5L VIA VENTI TO TRACH, SAO2 UP TO 92%.
[2019-07-01 17:32] LABS: BASOPHILS 0.2 % (0-2); EOSINOPHILS 1.2 % (0-7); HEMATOCRIT 34.9 % (36.0-48.0); HEMOGLOBIN 11.3 g/dL (12-16); IMMATURE GRANULOCYTES 0.3 % (0-5); LYMPHOCYTES 12.3 % (15-50); MCH 30.2 pg (26.0-34.0); MCHC 32.4 g/dL (31.0-37.0); MCV 93.3 fL (80.0-100.0); MEAN PLATELET VOLUME 8.4 fL (7.4-10.4); MONOCYTES 5.6 % (2-11); NEUTROPHILS 80.4 % (40-80); RBC 3.74 10x6/uL (4.00-5.40); RDW 14.9 % (11.5-14.5); WBC 11.1 10x3/uL (4.8-10.8)
[2019-07-01 17:35] LABS: PLATELET COUNT 247 10x3/uL (130-400)
[2019-07-01 17:37] LABS: CALC OSMOLALITY 272 mosm/kg (275-300); CALCIUM 8.9 mg/dL (8.5-10.1); CARBON DIOXIDE 25.9 mmol/L (21.0-32.0); CHLORIDE - SERUM 100 mmol/L (98-107); CREATININE - SERUM 0.8 mg/dL (0.6-1.3); GLUCOSE 170 mg/dL (74-106); POTASSIUM - SERUM 3.6 mmol/L (3.5-5.1); SODIUM 134 mmol/L (136-145); UREA NITROGEN 14 mg/dL (7-18); eGFR NON AFRICAN AMERICAN 75 mL/min (90-120)
[2019-07-01 17:43] LABS: ALBUMIN 2.5 g/dL (3.4-5.0); ALKALINE PHOSPHATASE 95 U/L (46-116); ALT (SGPT) 20 U/L (10-68); BILIRUBIN - TOTAL 0.21 mg/dL (0.2-1.3); MAGNESIUM - SERUM 1.8 mg/dL (1.8-2.4); PROTEIN - SERUM 7.8 g/dL (6.4-8.2)
[2019-07-01 18:18] VITALS: BP 111/76
[2019-07-01 18:31] VITALS: BP 111/76
--- NOTE | 2019-07-01 20:35 | NUR ---
RECEIVED FROM ER VIA MARIA ANTONIA A&O, ANTIBONIC INFUSING-RFA, PLACED OF TELEMTRY, HAS A PEG TUBE, COLOSTOMY, TRACH, DENIES ANY NEEDS AT THIS TIME, BED IS LOW, SRX2, CALL LIGHT IN REACH, WILL CONTINUE GR OF CARE
--- NOTE | 2019-07-01 22:22 | NUR ---
SET UP SUCTION IN ROOM
[2019-07-02] VITALS (7 sets, daily range): BP systolic 93–109; BP diastolic 38–56; BMI 19.5
--- NOTE | 2019-07-02 07:39 | NUR ---
PATIENT IS AWAKE AND ALERT. SHE C/O PAIN IN HER ABDOMEN WHERE HER NEW PEG TUBE IS PLACED. SHE HAS A TRACH AND REQUESTED IT BE SUCTIONED. I CALLED RESPIRATORY AND WE DEEP SUCTIONED IT TOGETHER. LATER WE WILL TAKE IT ALL APART AND CLEAN IT. THERE IS AN ODOR AND COPIOUS AMOUNTS OF MUCOUS BUILD UP IN THE TUBING. SHE IS FEELING BETTER AFTER BEING SUCTIONED. SHE WILL NEED HER FEEDINGS STARTED. SHE CAN NOT TAKE ANYTHING BY MOUTH.
--- NOTE | 2019-07-02 08:17 | NUR ---
CALLED DR OFFICE REGARDING PATIENT WANTING MORPHINE BECAUSE HER B/P IS SO LOW. WAITING FOR DR TO ROUND. EXPLAINED THE REASONING TO THE PATIENT AND SHE VOICES THAT SHE UNDERSTANDS.
--- NOTE | 2019-07-02 13:53 | NUR ---
PATIENT IS RESTING ON HER BACK IN BED. DIETARY CONSULTED BECAUSE THIS PATIENT IS NOT GETTING HER FEEDINGS. SHE IS NOT IN ANY PAIN AND SPOKE TO DAVID CONCERNING HER PAIN MEDICATION AND BLOOD PRESSURE. MEDCATIONS HAVE BEEN ADJUSTED ACCORDINGLY AND PATIENT APPEARS TO BE DOING WELL. DENIES ANY NEEDS AT THIS TIME.
--- NOTE | 2019-07-02 15:22 | NUR ---
CALLED DIETARY , APRIL IS GOING TO ORDER SOME FEEDINGS FOR THIS PATIENT.
--- NOTE | 2019-07-02 15:33 | NUR ---
Nutrition consult: Received written order to begin. Chart reviewed Jevity 1.5 mary to start @ 25 ml/hr with increase to goal rate of ml/hr with ml H2O flush Q 4 hours. HOB > [address] following.
--- NOTE | 2019-07-02 15:54 | NUR ---
FAMILY CAME AND VISITED. CALLED DIETARY AGAIN TO GET THE ORDER FOR THE PATIENT TO START HER FEEDINGS. STARTING FEEDINGS NOW.
--- NOTE | 2019-07-02 19:51 | NUR ---
IV TO RIGHT HAND LEAKING, IV CATH REMOVED, TIP INTACT. COVERED WITH 2X2 AND TAPE. RESITED IV TO RIGHT WRIST, 20 GUAGE, FIRST ATTEMPT. PT TOLERTED WELL.
--- NOTE | 2019-07-02 21:04 | NUR ---
HS MEDS GIVEN VIA PEG TUBE. NORCO 1 TAB GIVEN AT PT REQUEST FOR C/O PAIN.
[2019-07-03] VITALS: BP 95/40
--- NOTE | 2019-07-03 00:58 | NUR ---
RESTING WITH EYES CLOSED, RESPERATIONS EVEN, NO S/S DISTRESS NOTED.
--- NOTE | 2019-07-03 03:59 | NUR ---
I have reviewed this patient and I concur with the Shift Assessment completed by the Licensed Practical Nurse today this shift.
[2019-07-03 04:00] VITALS: BP 101/50
[2019-07-03 05:30] LABS: BASOPHILS 0.1 % (0-2); EOSINOPHILS 1.8 % (0-7); HEMATOCRIT 31.7 % (36.0-48.0); HEMOGLOBIN 10.1 g/dL (12-16); IMMATURE GRANULOCYTES 0.3 % (0-5); LYMPHOCYTES 20.2 % (15-50); MCH 30.1 pg (26.0-34.0); MCHC 31.9 g/dL (31.0-37.0); MCV 94.3 fL (80.0-100.0); MEAN PLATELET VOLUME 8.5 fL (7.4-10.4); MONOCYTES 7.3 % (2-11); NEUTROPHILS 70.3 % (40-80); PLATELET COUNT 227 10x3/uL (130-400); RBC 3.36 10x6/uL (4.00-5.40); RDW 14.9 % (11.5-14.5)
[2019-07-03 05:33] LABS: WBC 7.3 10x3/uL (4.8-10.8)
[2019-07-03 05:54] LABS: CALCIUM 8.5 mg/dL (8.5-10.1); CARBON DIOXIDE 27.6 mmol/L (21.0-32.0); CHLORIDE - SERUM 103 mmol/L (98-107); CREATININE - SERUM 0.8 mg/dL (0.6-1.3); POTASSIUM - SERUM 3.5 mmol/L (3.5-5.1); SODIUM 137 mmol/L (136-145); eGFR NON AFRICAN AMERICAN 75 mL/min (90-120)
[2019-07-03 05:55] LABS: CALC OSMOLALITY 273 mosm/kg (275-300); GLUCOSE 121 mg/dL (74-106); UREA NITROGEN 9 mg/dL (7-18)
--- NOTE | 2019-07-03 07:30 | NUR ---
PT SITTING UP 45 DEGREES. ASSISTED ONTO AND OFF OF BEDPAN. VOID X1, CLEAR YELLOW. O RESIDUAL NOTED. SCD PLACED. FEEDINGS INCREASED TO 40MLS/HR PER ORDER. REPOSITIONED PT TO COMFORT. ASSESSMENT COMPLETE. BED IN LOWEST POSITION. CALL LIGHT WITHIN REACH. WILL CONTINUE TO MONITOR.
[2019-07-03 11:13] VITALS: BP 114/50
--- NOTE | 2019-07-03 12:33 | NUR ---
I have reviewed this patient and I concur with the Shift Assessment completed by the Licensed Practical Nurse today this shift.
[2019-07-03 14:57] VITALS: BP 123/49
[2019-07-03 14:59] VITALS: Ht 160 cm; Wt 49.9 kg
[2019-07-03 17:33] VITALS: BP 131/53
[2019-07-03 20:34] VITALS: BP 110/50
[2019-07-04 01:10] VITALS: BP 105/54
--- NOTE | 2019-07-04 01:27 | NUR ---
TUBING TO FEEDING PUMP CHANGED, JEVITY 1.5 INFUSING AT 40 CC/HR.
[2019-07-04 05:14] LABS: BASOPHILS 0.2 % (0-2); EOSINOPHILS 0 % (0-7); HEMATOCRIT 30.5 % (36.0-48.0); HEMOGLOBIN 9.6 g/dL (12-16); LYMPHOCYTES 22.7 % (15-50); MCH 29.3 pg (26.0-34.0); MCHC 31.5 g/dL (31.0-37.0); MEAN PLATELET VOLUME 8.6 fL (7.4-10.4); MONOCYTES 8.3 % (2-11); NEUTROPHILS 68.8 % (40-80); PLATELET COUNT 267 10x3/uL (130-400); RBC 3.28 10x6/uL (4.00-5.40); RDW 14.6 % (11.5-14.5)
[2019-07-04 05:27] LABS: WBC 4.2 10x3/uL (4.8-10.8)
[2019-07-04 05:29] LABS: CALC OSMOLALITY 277 mosm/kg (275-300); CALCIUM 8.9 mg/dL (8.5-10.1); CARBON DIOXIDE 28.7 mmol/L (21.0-32.0); CHLORIDE - SERUM 102 mmol/L (98-107); CREATININE - SERUM 0.6 mg/dL (0.6-1.3); GLUCOSE 156 mg/dL (74-106); POTASSIUM - SERUM 3.7 mmol/L (3.5-5.1); SODIUM 138 mmol/L (136-145); UREA NITROGEN 9 mg/dL (7-18); eGFR NON AFRICAN AMERICAN > 90 mL/min (90-120)
[2019-07-04 05:58] VITALS: BP 103/58
--- NOTE | 2019-07-04 06:01 | NUR ---
I have reviewed this patient and I concur with the Shift Assessment completed by the Licensed Practical Nurse today this shift.
--- NOTE | 2019-07-04 07:34 | NUR ---
PATIENT IS ALERT AND AWAKE. SHE DENIES ANY NEEDS AT THIS TIME.
[2019-07-04 09:31] VITALS: BP 101/48
--- NOTE | 2019-07-04 10:53 | NUR ---
PATIENT IS SITTING UP IN BED USING MOUTH SWAPS. TALKED TO CASE MANAGMENT ABOUT THE DAUGHTER NOT BEING HAPPY WITH THE DETENTION. ALL MEDS GIVEN THOUGHT PEG TUBE, AND THIS MORNING AT 8:00 THERE WAS ZERO RESIDUAL IN THE PEG TUBE. PATIENT DENIES ANY NEEDS AT THIS TIME.
[2019-07-04 12:00] VITALS: BP 136/60
--- NOTE | 2019-07-04 14:28 | NUR ---
TOTAL TACH CARE COMPLETED. SUCTION COMPLETED. DRESSING CHANGED OVER PEG TUBE. DRESSING CHANGED AROUND TRACH. PATIENT TOLERATED. IV IN RIGHT FOREARM REMOVED BECAUSE IT HAD DISLODGED.
--- NOTE | 2019-07-04 14:29 | NUR ---
NEW IV STARTED IN LEFT FOREARM, 22G, ONE STICK. PATIENT TOLERATED.
[2019-07-04 16:00] VITALS: BP 122/70
[2019-07-04 20:00] VITALS: BP 106/46
[2019-07-05] VITALS: BP 111/58
--- NOTE | 2019-07-05 03:19 | NUR ---
I have reviewed this patient and I concur with the Shift Assessment completed by the Licensed Practical Nurse today this shift.
[2019-07-05 04:00] VITALS: BP 140/58
--- NOTE | 2019-07-05 07:10 | NUR ---
REPORT RECEIVED FROM HIDE AND SKIN PROCESSING WORKER AND PATIENT CARE ASSUMED. PATIENT LAYING IN BED ON BACK AWAKE, ALERT AND ORIENTED X 4. ELECTRIC METER INSTALLER IN ROOM CLEANING PATIENT AND CHANGING LINEN. PATIENT IS STABLE AND VSS. WILL CONTINUE WITH PLAN OF CARE. SR UP X 2 BED IN LOW POSITION AND CALL LIGHT IN REACH.
--- NOTE | 2019-07-05 08:37 | MORECARE ---
CASE MANAGEMENT DISCHARGE SUMMARY PATIENT: CHON LUI UNIT: [id number] ADM DATE: 07/01/19 AGE: 68 : 50 SEX: F ROOM/BED: D.8302 AUTHOR: NATALIA HEALY PHYSICIAN: REFERRING PHYSICIAN: CHERELLE NAVARRETE MD DATE OF SERVICE: 07/05/19 Discharge Plan Patient Name: CHON LUI Facility: [facility]:[place] : 1950 Planned Disposition: Assisted Facility Anticipated Discharge Date: 07/06/19 Discharge Date: Expected LOS: 5 Initial Reviewer: [id number] Initial Review Date: 07/04/2019 Generated: 07/05/19 9:37 am Comments DCP- Discharge Planning Updated by [id number]: Randa Guido on 07/04/19 8:[address] RECEIVED A CALL FROM [facility] WITH [facility]. REQUESTED UPDATED GIVEN. SHE LEFT HER CELL # ([phone]) IF WE HAD ANY NEEDS, QUESTIONS, OR KNEW POTENTIAL DISCHARGE DATE. Coverage Notice Reviewer: [id number] Holly Ha Notice Issued Date-Time: 07/04/2019 15:00 Notice Type: Patient Choice Letter Notice Delivered To: Patient Relationship to Patient: Graphic Design Manager Name: Delivery Method: HAND - Hand Delivered Cassandra Days: Prior Verbal Notification: Recipient Understood Notice: Yes Recipient Signature: Yes Med Rec Note Co-signed by Attending: Coverage Notice Comment: [facility] Reviewer: [id number] Holly Ha Notice Issued Date-Time: 07/05/2019 15:00 Notice Type: IM Discharge Notice Notice Delivered To: Patient Relationship to Patient: Graphic Design Manager Name: Delivery Method: HAND - Hand Delivered Cassandra Days: Prior Verbal Notification: Recipient Understood Notice: Yes Recipient Signature: Yes Med Rec Note Co-signed by Attending: Coverage Notice Comment: Patient Name: CHON LUI Page 99397 at 0837 All edits/amendments must be made on the electronic document DICTATION DATE: 07/05/19835 BRIDGE REPAIRER: NAHUN 07/05/19835 RPT#: [id number] DC DATE: STATUS: ADM IN [address] [place] [address] END OF REPORT
--- NOTE | 2019-07-05 08:44 | MORECARE ---
CASE MANAGEMENT DISCHARGE SUMMARY PATIENT: CHON LUI UNIT: [id number] ADM DATE: 07/01/19 AGE: 68 : 50 SEX: F ROOM/BED: D.2132 AUTHOR: MONET,DOC PHYSICIAN: REFERRING PHYSICIAN: CHERELLE NAVARRETE MD DATE OF SERVICE: 07/05/19 Discharge Plan Patient Name: CHON LUI Facility: [facility]:[place] : 1950 Planned Disposition: Penitentiary Facility Anticipated Discharge Date: 07/06/19 Discharge Date: Expected LOS: 5 Initial Reviewer: [id number] Initial Review Date: 07/04/2019 Generated: 07/05/19 9:44 am Comments DCP- Discharge Planning Updated by [email or web address]: Randa Guido on 07/04/19 8:[address] RECEIVED A CALL FROM SUNDAY WITH [facility]. REQUESTED UPDATED GIVEN. SHE LEFT HER CELL # ([phone]) IF WE HAD ANY NEEDS, QUESTIONS, OR KNEW POTENTIAL DISCHARGE DATE. DCPIA - Discharge Planning Initial Assessment Updated by [id number]: Bryn Ha on 07/05/19 8:38 am * Is the patient Alert and Oriented? Yes * How many steps to enter\exit or inside your home? NONE * PCP PATIENT CANNOT REMEMBER HER PRIMARY CARE DOCTOR * Pharmacy [facility] * Preadmission Environment Penitentiary Facility * Facility Name [facility] * ADLs Partial Dependent * Partial ADLs (Assistance needed) Ambulation Bathing Dressing Medication Management Toileting Transfers * Equipment Bedside Commode Enteral Feeding and Supplies Oxygen Trach Care Supplies Walker Wheelchair * Other Equipment PATIENT CANNOT REMEMBER MEDICAL EQUIPMENT PROVIDER * List name and contact numbers for known caregivers / representatives who currently or will assist patient after discharge: DEBORAH KELLY DTR, * Verbal permission to speak to the caregivers and representatives has been obtained from the patient. Yes * Community resources currently utilized None * Please name any agencies selected above. NONE * Additional services required to return to the preadmission environment? No * Can the patient safely return to the preadmission environment? Yes * Has this patient been hospitalized within the prior 30 days at any hospital? No Coverage Notice Reviewer: [id number] Holly Ha Notice Issued Date-Time: 07/04/2019 15:00 Notice Type: Patient Choice Letter Notice Delivered To: Patient Relationship to Patient: Load Dropper Name: Delivery Method: HAND - Hand Delivered Cassandra Days: Prior Verbal Notification: Recipient Understood Notice: Yes Recipient Signature: Yes Med Rec Note Co-signed by Attending: Coverage Notice Comment: [facility] Reviewer: [id number] Holly Ha Notice Issued Date-Time: 07/05/2019 15:00 Notice Type: IM Discharge Notice Notice Delivered To: Patient Relationship to Patient: Load Dropper Name: Delivery Method: HAND - Hand Delivered Cassandra Days: Prior Verbal Notification: Recipient Understood Notice: Yes Recipient Signature: Yes Med Rec Note Co-signed by Attending: Coverage Notice Comment: Last DP export: 07/05/19 7:37 Patient Name: CHON LUI Page 71254 at 0844 All edits/amendments must be made on the electronic document DICTATION DATE: 07/05/19843 WOOD TECHNOLOGIST: NAHUN 07/05/19843 RPT#: [id number] DC DATE: STATUS: ADM IN [facility] [address] [place] [address] END OF REPORT
--- NOTE | 2019-07-05 08:51 | MORECARE ---
CASE MANAGEMENT DISCHARGE SUMMARY PATIENT: CHON LUI UNIT: [id number] ADM DATE: 07/01/19 AGE: 68 : 50 SEX: F ROOM/BED: D.1722 AUTHOR: MONET,DOC PHYSICIAN: REFERRING PHYSICIAN: CHERELLE NAVARRETE MD DATE OF SERVICE: 07/05/19 Discharge Plan Patient Name: CHON LUI Facility: [facility]:[place] : 1950 Planned Disposition: Custodial Facility Anticipated Discharge Date: 07/06/19 Discharge Date: Expected LOS: 5 Initial Reviewer: [id number] Initial Review Date: 07/04/2019 Generated: 07/05/19 9:51 am Comments DCP- Discharge Planning Updated by [id number]: Bryn Ha on 07/05/19 7:[address] Patient Name: CHON LUI Admission Status: ER Accout number: [id number] Admission Date: 07-01-2019 : 1950 Admission Diagnosis: Attending: CHERELLE NAVARRETE Current LOS: 4 Anticipated DC Date: 07-06-2019 Planned Disposition: Custodial Facility Primary Insurance: [employer] PLANNED EXTERNAL PROVIDER: [facility] REHAB BED Discharge Planning Comments: CM RECEIVED CALL FROM DEBORAH PEDERSENE, PT'S DAUGHTER, , WHO ADVISED THAT PT WILL NOT BE RETURNING TO [facility] DUE TO POOR CONDITIONS THERE. THEY WANT PT MOVED TO [facility] AND HAVE CALLED AND TALKED TO THE FACILITY ALREADY. CM MET WITH PT IN ROOM TO DISCUSS DISCHARGE PLANNING AND NEEDS. PT REPORTS SHE WAS IN REHAB AT [facility] AND DOES NOT WANT TO GO BACK THERE. SHE WANTS TO GO TO [facility] AND HER FAMILY HAS ALREADY CONTACTED THE FACILITY. CHOICE SIGNED BY PT. PT HAS WALKER, WHEELCHAIR, HOME OXYGEN, TRACH AND FEEDING SUPPLIES BUT CANNOT REMEMBER THE NAME OF HER HOME EQUIOPMENT PROVIDER. PT HAS BEEN RECEIVING ALL EQUIPMENT RECENTLY FROM [facility]. PT STATES SHE IS IN [facility] UNTIL SHE CAN TAKE CARE OF HERSELF AT HOME. IMPORTANT MESSAGE FROM MEDICARE PROVIDED AND EXPLAINED. CM CALLED [facility], , SPOKE TO [facility] OF ADMISSIONS PROVIDED REFERRAL INFORMATION. CM FAXED REFERRAL TO [facility] AT [phone]. CM WAITING ADMISSION DETERMINATION FROM [facility]. Weatherization Director: Bryn Ha DCP- Discharge Planning Updated by [email or web address]: Randa Guido on 07/04/19 8:[address] RECEIVED A CALL FROM SUNDAY WITH [facility]. REQUESTED UPDATED GIVEN. SHE LEFT HER CELL # ([phone]) IF WE HAD ANY NEEDS, QUESTIONS, OR KNEW POTENTIAL DISCHARGE DATE. DCPIA - Discharge Planning Initial Assessment Updated by [id number]: Bryn Ha on 07/05/19 8:38 am * Is the patient Alert and Oriented? Yes * How many steps to enter\exit or inside your home? NONE * PCP PATIENT CANNOT REMEMBER HER PRIMARY CARE DOCTOR * Pharmacy [facility] * Preadmission Environment Custodial Facility * Facility Name [facility] * ADLs Partial Dependent * Partial ADLs (Assistance needed) Ambulation Bathing Dressing Medication Management Toileting Transfers * Equipment Bedside Commode Enteral Feeding and Supplies Oxygen Trach Care Supplies Walker Wheelchair * Other Equipment PATIENT CANNOT REMEMBER MEDICAL EQUIPMENT PROVIDER * List name and contact numbers for known caregivers / representatives who currently or will assist patient after discharge: DEBORAH KELLY, DTR, * Verbal permission to speak to the caregivers and representatives has been obtained from the patient. Yes * Community resources currently utilized None * Please name any agencies selected above. NONE * Additional services required to return to the preadmission environment? No * Can the patient safely return to the preadmission environment? Yes * Has this patient been hospitalized within the prior 30 days at any hospital? No External Providers External Provider: [facility] Next Contact Date: 07/05/2019 Service Request Date: Service Type: Resolution: Reviewer: Comments: Coverage Notice Reviewer: [id number] Holly Ha Notice Issued Date-Time: 07/04/2019 15:00 Notice Type: Patient Choice Letter Notice Delivered To: Patient Relationship to Patient: Sheet Metal Installer Name: Delivery Method: HAND - Hand Delivered Cassandra Days: Prior Verbal Notification: Recipient Understood Notice: Yes Recipient Signature: Yes Med Rec Note Co-signed by Attending: Coverage Notice Comment: [facility] Reviewer: [id number] Holly Ha Notice Issued Date-Time: 07/05/2019 15:00 Notice Type: IM Discharge Notice Notice Delivered To: Patient Relationship to Patient: Sheet Metal Installer Name: Delivery Method: HAND - Hand Delivered Cassandra Days: Prior Verbal Notification: Recipient Understood Notice: Yes Recipient Signature: Yes Med Rec Note Co-signed by Attending: Coverage Notice Comment: Last DP export: 07/05/19 7:44 Patient Name: CHON LUI Page 88870 at 0851 All edits/amendments must be made on the electronic document DICTATION DATE: 07/05/1951 SOURCING INTERN: NAHUN 07/05/19 0851 RPT#: [id number] DC DATE: STATUS: ADM IN [facility] [address] [place] [address] END OF REPORT
--- NOTE | 2019-07-05 08:58 | MORECARE ---
CASE MANAGEMENT DISCHARGE SUMMARY PATIENT: CHON LUI UNIT: [id number] ADM DATE: 07/01/19 AGE: 68 : 50 SEX: F ROOM/BED: D.5312 AUTHOR: MONET,DOC PHYSICIAN: REFERRING PHYSICIAN: CHERELLE NAVARRETE MD DATE OF SERVICE: 07/05/19 Discharge Plan Patient Name: CHON LUI Facility: [facility]:[place] : 1950 Planned Disposition: Correction Facility Anticipated Discharge Date: 07/06/19 Discharge Date: Expected LOS: 5 Initial Reviewer: [id number] Initial Review Date: 07/04/2019 Generated: 07/05/19 9:58 am Comments DCP- Discharge Planning Updated by [id number]: Bryn Ha on 07/05/19 7:[address] Patient Name: CHON LUI Admission Status: ER Accout number: [id number] Admission Date: 07-01-2019 : 1950 Admission Diagnosis: Attending: CHERELLE NAVARRETE Current LOS: 4 Anticipated DC Date: 07-06-2019 Planned Disposition: Correction Facility Primary Insurance: [employer] PLANNED EXTERNAL PROVIDER: [facility], MEDICARE REHAB BED Discharge Planning Comments: CM RECEIVED CALL FROM DEBORAH PEDERSENE, PT'S DAUGHTER, , WHO ADVISED THAT PT WILL NOT BE RETURNING TO [facility] DUE TO POOR CONDITIONS THERE. THEY WANT PT MOVED TO [facility] AND HAVE CALLED AND TALKED TO THE FACILITY ALREADY. CM MET WITH PT IN ROOM TO DISCUSS DISCHARGE PLANNING AND NEEDS. PT REPORTS SHE WAS IN REHAB AT [facility] AND DOES NOT WANT TO GO BACK THERE. SHE WANTS TO GO TO [facility] AND HER FAMILY HAS ALREADY CONTACTED THE FACILITY. CHOICE SIGNED BY PT. PT HAS WALKER, WHEELCHAIR, HOME OXYGEN, TRACH AND FEEDING SUPPLIES BUT CANNOT REMEMBER THE NAME OF HER HOME EQUIPMENT PROVIDER. PT HAS BEEN RECEIVING ALL EQUIPMENT RECENTLY FROM THE SNF. PT STATES SHE IS IN THE SNF UNTIL SHE CAN TAKE CARE OF HERSELF AT HOME. IMPORTANT MESSAGE FROM MEDICARE PROVIDED AND EXPLAINED. CM CALLED [facility], , SPOKE TO TRACEY OF ADMISSIONS PROVIDED REFERRAL INFORMATION. CM FAXED REFERRAL TO [facility] AT [phone]. CM WAITING ADMISSION DETERMINATION FROM [facility]. Vulnerability Assessment Analyst: Bryn Ha DCP- Discharge Planning Updated by [id number]: Randa Guido on 07/04/19 8:[address] RECEIVED A CALL FROM SUNDAY WITH [facility]. REQUESTED UPDATED GIVEN. SHE LEFT HER CELL # ([phone]) IF WE HAD ANY NEEDS, QUESTIONS, OR KNEW POTENTIAL DISCHARGE DATE. DCPIA - Discharge Planning Initial Assessment Updated by [id number]: Bryn Ha on 07/05/19 8:38 am * Is the patient Alert and Oriented? Yes * How many steps to enter\exit or inside your home? NONE * PCP PATIENT CANNOT REMEMBER HER PRIMARY CARE DOCTOR * Pharmacy [facility] * Preadmission Environment Correction Facility * Facility Name [facility] ([facility]) * ADLs Partial Dependent * Partial ADLs (Assistance needed) Ambulation Bathing Dressing Medication Management Toileting Transfers * Equipment Bedside Commode Enteral Feeding and Supplies Oxygen Trach Care Supplies Walker Wheelchair * Other Equipment PATIENT CANNOT REMEMBER MEDICAL EQUIPMENT PROVIDER * List name and contact numbers for known caregivers / representatives who currently or will assist patient after discharge: DEBORAH KELLY, DTR, * Verbal permission to speak to the caregivers and representatives has been obtained from the patient. Yes * Community resources currently utilized None * Please name any agencies selected above. NONE * Additional services required to return to the preadmission environment? No * Can the patient safely return to the preadmission environment? Yes * Has this patient been hospitalized within the prior 30 days at any hospital? No Coverage Notice Reviewer: [id number] Holly Ha Notice Issued Date-Time: 07/04/2019 15:00 Notice Type: Patient Choice Letter Notice Delivered To: Patient Relationship to Patient: Assistant Office Manager Name: Delivery Method: HAND - Hand Delivered Cassandra Days: Prior Verbal Notification: Recipient Understood Notice: Yes Recipient Signature: Yes Med Rec Note Co-signed by Attending: Coverage Notice Comment: [facility] TANNER Reviewer: [id number] Holly Ha Notice Issued Date-Time: 07/05/2019 15:00 Notice Type: IM Discharge Notice Notice Delivered To: Patient Relationship to Patient: Assistant Office Manager Name: Delivery Method: HAND - Hand Delivered Cassandra Days: Prior Verbal Notification: Recipient Understood Notice: Yes Recipient Signature: Yes Med Rec Note Co-signed by Attending: Coverage Notice Comment: Last DP export: 07/05/19 7:51 Patient Name: CHON LUI Page 45959 at 0858 All edits/amendments must be made on the electronic document DICTATION DATE: 07/05/19857 REGIONAL OWNER OPERATOR TRUCK DRIVER: NAHUN 07/05/19857 RPT#: [id number] DC DATE: STATUS: ADM IN [facility] [address] [place] [address] END OF REPORT
[2019-07-05 09:55] VITALS: BP 94/50
--- NOTE | 2019-07-05 10:39 | NUR ---
PATIENT LAYING IN BED ON BACK AWAKE AND ALERT. PATIENT IS UNCHANGED AND VSS. PATIENT DENIES ANY NEEDS OR PAIN. WILL CONTINUE TO MONITOR. SR UP X 2 BED IN LOW POSITION AND CALL LIGHT IN REACH.
[2019-07-05 12:09] LABS: FUNGUS STAIN Final report (())
[2019-07-05 13:34] VITALS: BP 113/60
--- NOTE | 2019-07-05 14:28 | NUR ---
Nutrition Follow-up: Nurse reports pt tolerating TF at goal rate (40 mL/hr) without issue. Diet: Jevity 1.2 @ 40 No new wt Last BM: 07/05 Labs noted: Glu 156 Meds noted: Prednisone, Lasix -Continue current TF as tolerated. -RD following.
--- NOTE | 2019-07-05 15:14 | NUR ---
PATIENT IS STABLE AND UMCHANGED. PATIENT WATCHING TV. PATIENT DENIES ANY NEEDS OR PAIN. WILL CONTINUE TO MONITOR. SR UP X 2 BED IN LOW POSITION AND CALL LIGHT IN REACH.
--- NOTE | 2019-07-05 16:13 | MORECARE ---
CASE MANAGEMENT DISCHARGE SUMMARY PATIENT: CHON LUI UNIT: [id number] ADM DATE: 07/01/19 AGE: 68 : 50 SEX: F ROOM/BED: D.4718 AUTHOR: MONET,DOC PHYSICIAN: REFERRING PHYSICIAN: CHERELLE NAVARRETE MD DATE OF SERVICE: 07/05/19 Discharge Plan Patient Name: CHON LUI Facility: [facility]:[place] : 1950 Planned Disposition: Nursing Facility GINA Cert Anticipated Discharge Date: 07/06/19 Discharge Date: Expected LOS: 5 Initial Reviewer: [id number] Initial Review Date: 07/04/2019 Generated: 07/05/19 5:13 pm Comments DCP- Discharge Planning Updated by [id number]: Bryn Ha on 07/05/19 7:[address] Patient Name: CHON LUI Admission Status: ER Accout number: [id number] Admission Date: 07-01-2019 : 1950 Admission Diagnosis: Attending: CHERELLE NAVARRETE Current LOS: 4 Anticipated DC Date: 07-06-2019 Planned Disposition: Fpc Facility Primary Insurance: [employer] PLANNED EXTERNAL PROVIDER: [facility], MEDICARE REHAB BED Discharge Planning Comments: CM RECEIVED CALL FROM DEBORAH , PT'S DAUGHTER, , WHO ADVISED THAT PT WILL NOT BE RETURNING TO [facility] DUE TO POOR CONDITIONS THERE. THEY WANT PT MOVED TO [facility] AND HAVE CALLED AND TALKED TO THE FACILITY ALREADY. CM MET WITH PT IN ROOM TO DISCUSS DISCHARGE PLANNING AND NEEDS. PT REPORTS SHE WAS IN REHAB AT [facility] AND DOES NOT WANT TO GO BACK THERE. SHE WANTS TO GO TO [facility] AND HER FAMILY HAS ALREADY CONTACTED THE FACILITY. CHOICE SIGNED BY PT. PT HAS WALKER, WHEELCHAIR, HOME OXYGEN, TRACH AND FEEDING SUPPLIES BUT CANNOT REMEMBER THE NAME OF HER HOME EQUIPMENT PROVIDER. PT HAS BEEN RECEIVING ALL EQUIPMENT RECENTLY FROM THE SHELTER. PT STATES SHE IS IN THE SHELTER UNTIL SHE CAN TAKE CARE OF HERSELF AT HOME. IMPORTANT MESSAGE FROM MEDICARE PROVIDED AND EXPLAINED. CM CALLED [facility], , SPOKE TO TRACEY OF ADMISSIONS PROVIDED REFERRAL INFORMATION. CM FAXED REFERRAL TO [facility] AT [phone]. CM WAITING ADMISSION DETERMINATION FROM [facility]. Label Machine Operator: Bryn Ha DCP- Discharge Planning Updated by [id number]: Randa Guido on 07/04/19 8:[address] RECEIVED A CALL FROM SUNDAY WITH [facility]. REQUESTED UPDATED GIVEN. SHE LEFT HER CELL # ([phone]) IF WE HAD ANY NEEDS, QUESTIONS, OR KNEW POTENTIAL DISCHARGE DATE. DCPIA - Discharge Planning Initial Assessment Updated by [id number]: Bryn Ha on 07/05/19 8:38 am * Is the patient Alert and Oriented? Yes * How many steps to enter\exit or inside your home? NONE * PCP PATIENT CANNOT REMEMBER HER PRIMARY CARE DOCTOR * Pharmacy [facility] * Preadmission Environment Fpc Facility * Facility Name [facility] ([facility]) * ADLs Partial Dependent * Partial ADLs (Assistance needed) Ambulation Bathing Dressing Medication Management Toileting Transfers * Equipment Bedside Commode Enteral Feeding and Supplies Oxygen Trach Care Supplies Walker Wheelchair * Other Equipment PATIENT CANNOT REMEMBER MEDICAL EQUIPMENT PROVIDER * List name and contact numbers for known caregivers / representatives who currently or will assist patient after discharge: DEBORAH KELLY, DTR, * Verbal permission to speak to the caregivers and representatives has been obtained from the patient. Yes * Community resources currently utilized None * Please name any agencies selected above. NONE * Additional services required to return to the preadmission environment? No * Can the patient safely return to the preadmission environment? Yes * Has this patient been hospitalized within the prior 30 days at any hospital? No Coverage Notice Reviewer: [id number] Holly Ha Notice Issued Date-Time: 07/04/2019 15:00 Notice Type: Patient Choice Letter Notice Delivered To: Patient Relationship to Patient: Clinical Tech Name: Delivery Method: HAND - Hand Delivered Cassandra Days: Prior Verbal Notification: Recipient Understood Notice: Yes Recipient Signature: Yes Med Rec Note Co-signed by Attending: Coverage Notice Comment: KHADRA TANNER Reviewer: [id number] Holly Ha Notice Issued Date-Time: 07/05/2019 15:00 Notice Type: IM Discharge Notice Notice Delivered To: Patient Relationship to Patient: Clinical Tech Name: Delivery Method: HAND - Hand Delivered Cassandra Days: Prior Verbal Notification: Recipient Understood Notice: Yes Recipient Signature: Yes Med Rec Note Co-signed by Attending: Coverage Notice Comment: Last DP export: 07/05/19 7:58 Patient Name: CHON LUI Page 91864 at 1613 All edits/amendments must be made on the electronic document DICTATION DATE: 07/05/191612 PROPERTY AND EQUIPMENT CLERK: NAHUN 07/05/191612 RPT#: [id number] DC DATE: STATUS: ADM IN [facility] [address] [place] [address] END OF REPORT
--- NOTE | 2019-07-05 16:22 | MORECARE ---
CASE MANAGEMENT DISCHARGE SUMMARY PATIENT: CHON LUI UNIT: [id number] ADM DATE: 07/01/19 AGE: 68 : 50 SEX: F ROOM/BED: D.2132 AUTHOR: MONET,DOC PHYSICIAN: REFERRING PHYSICIAN: CHERELLE NAVARRETE MD DATE OF SERVICE: 07/05/19 Discharge Plan Patient Name: CHON LUI Facility: [facility]:[place] : 1950 Planned Disposition: Nursing Facility GINA Cert Anticipated Discharge Date: 07/06/19 Discharge Date: Expected LOS: 5 Initial Reviewer: [id number] Initial Review Date: 07/04/2019 Generated: 07/05/19 5:22 pm Comments DCP- Discharge Planning Updated by [id number]: Bryn Ha on 07/05/19 3:[address] Patient Name: CHON LUI Encounter No: [id number] : 1950 Primary Insurance: [employer] Anticipated DC Date: 07-06-2019 Planned Disposition: Nursing Facility [facility] Cert External Planned Provider: [facility]M CARE MEDICAID BED Discharge Planning Comments: CM RECEIVED CALL FROM ARRON OF [facility], PT IS IN SNF CARE BED, THEY ARE AWARE AT FACLITY THAT PT'S DAUGHTER IS UNHAPPY AND SHE HAS TALKED TO ADMINISTRATION. ARRON ASKED TO BE KEPT INFORMED IF PT IS ACCEPTED SOMEWHERE ELSE. TRACEY OF [facility] EVALUATED PT IN HOSPITAL ROOM TODAY, CM PROVIDED ADDITIONAL MEDICAL INFORMATION REQUESTED FOR ADMISSION REVIEW. CM WAITING ADMISSION DETERMINATION FROM [facility]. Dental Secretary: Bryn Ha DCP- Discharge Planning Updated by [id number]: Bryn Ha on 07/05/19 7:[address] Patient Name: CHON LUI Admission Status: ER Accout number: [id number] Admission Date: 07-01-2019 : 1950 Admission Diagnosis: Attending: CHERELLE NAVARRETE Current LOS: 4 Anticipated DC Date: 07-06-2019 Planned Disposition: Intermediate Facility Primary Insurance: [employer] PLANNED EXTERNAL PROVIDER: [facility], MEDICARE REHAB BED Discharge Planning Comments: CM RECEIVED CALL FROM DEBORAH BLUE, PT'S DAUGHTER, , WHO ADVISED THAT PT WILL NOT BE RETURNING TO [facility] DUE TO POOR CONDITIONS THERE. THEY WANT PT MOVED TO [facility] AND HAVE CALLED AND TALKED TO THE FACILITY ALREADY. CM MET WITH PT IN ROOM TO DISCUSS DISCHARGE PLANNING AND NEEDS. PT REPORTS SHE WAS IN REHAB AT [facility] AND DOES NOT WANT TO GO BACK THERE. SHE WANTS TO GO TO [facility] AND HER FAMILY HAS ALREADY CONTACTED THE FACILITY. CHOICE SIGNED BY PT. PT HAS WALKER, WHEELCHAIR, HOME OXYGEN, TRACH AND FEEDING SUPPLIES BUT CANNOT REMEMBER THE NAME OF HER HOME EQUIPMENT PROVIDER. PT HAS BEEN RECEIVING ALL EQUIPMENT RECENTLY FROM THE [facility]. PT STATES SHE IS IN THE [facility] UNTIL SHE CAN TAKE CARE OF HERSELF AT HOME. IMPORTANT MESSAGE FROM MEDICARE PROVIDED AND EXPLAINED. CM CALLED [facility], , SPOKE TO TRACEY OF ADMISSIONS PROVIDED REFERRAL INFORMATION. CM FAXED REFERRAL TO [facility] AT [phone]. CM WAITING ADMISSION DETERMINATION FROM [facility]. Dental Secretary: Bryn Ha DCP- Discharge Planning Updated by [email or web address]: Rnada Guido on 07/04/19 8:[address] RECEIVED A CALL FROM SUNDAY WITH [facility]. REQUESTED UPDATED GIVEN. SHE LEFT HER CELL # ([phone]) IF WE HAD ANY NEEDS, QUESTIONS, OR KNEW POTENTIAL DISCHARGE DATE. DCPIA - Discharge Planning Initial Assessment Updated by [id number]: Bryn Ha on 07/05/19 8:38 am * Is the patient Alert and Oriented? Yes * How many steps to enter\exit or inside your home? NONE * PCP PATIENT CANNOT REMEMBER HER PRIMARY CARE DOCTOR * Pharmacy [facility] * Preadmission Environment Intermediate Facility * Facility Name [facility] [employer] [facility]) * ADLs Partial Dependent * Partial ADLs (Assistance needed) Ambulation Bathing Dressing Medication Management Toileting Transfers * Equipment Bedside Commode Enteral Feeding and Supplies Oxygen Trach Care Supplies Walker Wheelchair * Other Equipment PATIENT CANNOT REMEMBER MEDICAL EQUIPMENT PROVIDER * List name and contact numbers for known caregivers / representatives who currently or will assist patient after discharge: DEBORAH KELLY DTR, * Verbal permission to speak to the caregivers and representatives has been obtained from the patient. Yes * Community resources currently utilized None * Please name any agencies selected above. NONE * Additional services required to return to the preadmission environment? No * Can the patient safely return to the preadmission environment? Yes * Has this patient been hospitalized within the prior 30 days at any hospital? No Coverage Notice Reviewer: [id number] Holly Ha Notice Issued Date-Time: 07/04/2019 15:00 Notice Type: Patient Choice Letter Notice Delivered To: Patient Relationship to Patient: Bleacher [employer] Name: Delivery Method: HAND - Hand Delivered Cassandra Days: Prior Verbal Notification: Recipient Understood Notice: Yes Recipient Signature: Yes Med Rec Note Co-signed by Attending: Coverage Notice Comment: [facility] Reviewer: [id number] Holly Ha Notice Issued Date-Time: 07/05/2019 15:00 Notice Type: IM Discharge Notice Notice Delivered To: Patient Relationship to Patient: Bleacher [employer]ulf[employer] Pulp Name: Delivery Method: HAND - Hand Delivered Cassandra Days: Prior Verbal Notification: Recipient Understood Notice: Yes Recipient Signature: Yes Med Rec Note Co-signed by Attending: Coverage Notice Comment: Last DP export: 07/05/19 3:13 Patient Name: CHON LUI Page 19686 at 1622 All edits/amendments must be made on the electronic document DICTATION DATE: 07/05/191621 SITE INSPECTOR: NAHUN 07/05/191621 RPT#: [id number] DC DATE: STATUS: ADM IN [facility] [address] [place] [address] END OF REPORT
[2019-07-05 17:30] VITALS: BP 166/45
--- NOTE | 2019-07-05 18:26 | NUR ---
PATIENT LAYING IN BED ON BACK WITH HOB ELEVATED 20 DEGREES. PATIENT VISITING WITH FAMILY AT BS. PATIENT IS STABLE AND VSS. PATIENT DENIES ANY NEEDS OR PAIN. WILL CONTINUE TO MONITOR. SR UP X 2 BED IN LOW POSITION AND CALL LIGHT IN REACH.
[2019-07-05 20:00] VITALS: BP 116/54
--- NOTE | 2019-07-05 20:55 | NUR ---
PROVIDED [facility]AC[facility] CARE INNER CANULLA CLEAN AND PATENT
[2019-07-06 04:00] VITALS: BP 141/51
[2019-07-06 05:51] LABS: BASOPHILS 0.2 % (0-2); EOSINOPHILS 0 % (0-7); HEMATOCRIT 33.7 % (36.0-48.0); HEMOGLOBIN 10.5 g/dL (12-16); IMMATURE GRANULOCYTES 0.4 % (0-5); LYMPHOCYTES 30.5 % (15-50); MCH 29.6 pg (26.0-34.0); MCHC 31.2 g/dL (31.0-37.0); MCV 94.9 fL (80.0-100.0); MEAN PLATELET VOLUME 8.4 fL (7.4-10.4); MONOCYTES 9.2 % (2-11); NEUTROPHILS 59.7 % (40-80); PLATELET COUNT 296 10x3/uL (130-400); RBC 3.55 10x6/uL (4.00-5.40); RDW 14.4 % (11.5-14.5); WBC 5.2 10x3/uL (4.8-10.8)
[2019-07-06 06:16] LABS: CALC OSMOLALITY 276 mosm/kg (275-300); CALCIUM 8.9 mg/dL (8.5-10.1); CARBON DIOXIDE 31.5 mmol/L (21.0-32.0); CHLORIDE - SERUM 102 mmol/L (98-107); CREATININE - SERUM 0.6 mg/dL (0.6-1.3); GLUCOSE 114 mg/dL (74-106); SODIUM 137 mmol/L (136-145); UREA NITROGEN 17 mg/dL (7-18); eGFR NON AFRICAN AMERICAN > 90 mL/min (90-120)
--- NOTE | 2019-07-06 07:54 | NUR ---
PT RESTING. RR EVEN AND UNLABORED. DENIES NEEDS OR PAIN AT THIS TIME. HOB AT 30 DEGREES. BED IN LOWEST POSITION. CALL LIGHT WITHIN REACH. WILL CONTINUE TO MONITOR.
[2019-07-06 08:00] VITALS: BP 124/62
--- NOTE | 2019-07-06 09:16 | NUR ---
PT HAD WATERY BM X1. BED BATH GIVEN. LINENS AND GOWN CHANGED. ASSESSMENT COMPLETE. PT PULLED UP IN BED AND REPOSITIONED TO COMFORT AT 45 DEGREES. DENIES FUTHER NEEDS AT THIS TIME. WILL CONTINUE TO MONITOR.
--- NOTE | 2019-07-06 11:36 | NUR ---
BM X1. PT CLEANED, LINENS CHANGED. PT REPOSITIONED TO COMFORT AND HOB 45 DEGREES.
[2019-07-06 12:00] VITALS: BP 110/51
--- NOTE | 2019-07-06 14:51 | NUR ---
BM X1. PT CLEANED, LINENS CHANGED. REPOSITIONED TO COMFORT. HOB AT 45 DEGREES. WILL CONTINUE TO MONITOR.
[2019-07-06 16:34] VITALS: BP 98/46
--- NOTE | 2019-07-06 17:28 | NUR ---
I have reviewed this patient and I concur with the Shift Assessment completed by the Licensed Practical Nurse today this shift.
--- NOTE | 2019-07-06 17:36 | NUR ---
PT ASSISTED ONTO BEDPAN. VOID X1. PULLED UP IN BED AND REPOSITIONED TO COMFORT.
[2019-07-06 20:00] VITALS: BP 90/40
[2019-07-07] VITALS (7 sets, daily range): BP systolic 93–118; BP diastolic 40–56
[2019-07-07 06:58] LABS: CALC OSMOLALITY 274 mosm/kg (275-300); CALCIUM 8.7 mg/dL (8.5-10.1); CARBON DIOXIDE 28.3 mmol/L (21.0-32.0); CHLORIDE - SERUM 101 mmol/L (98-107); CREATININE - SERUM 0.5 mg/dL (0.6-1.3); GLUCOSE 110 mg/dL (74-106); POTASSIUM - SERUM 4.4 mmol/L (3.5-5.1); SODIUM 136 mmol/L (136-145); UREA NITROGEN 19 mg/dL (7-18); eGFR NON AFRICAN AMERICAN > 90 mL/min (90-120)
[2019-07-07 07:28] LABS: HEMOGLOBIN 10.7 g/dL (12-16); LYMPHOCYTES 33.6 % (15-50); MCH 30.2 pg (26.0-34.0); MCHC 32.4 g/dL (31.0-37.0); MCV 93.2 fL (80.0-100.0); MEAN PLATELET VOLUME 7.8 fL (7.4-10.4); NEUTROPHILS 58.4 % (40-80); PLATELET COUNT 343 10x3/uL (130-400); RBC 3.54 10x6/uL (4.00-5.40); RDW 13.9 % (11.5-14.5); WBC 5.8 10x3/uL (4.8-10.8)
--- NOTE | 2019-07-07 08:15 | NUR ---
ASSESSMENT DONE. DENIES NEEDS
--- NOTE | 2019-07-07 17:44 | NUR ---
I have reviewed this patient and I concur with the Shift Assessment completed by the Licensed Practical Nurse today this shift.
--- NOTE | 2019-07-07 19:37 | NUR ---
RECEIVED UP IN BED WITH FAMILY AT BEDSIDE. ALERT AND ORIETNED . BEDFAST AT THIS TIME. ABLE TO MOVE IN BED. PEG TUBE CHECKED FOR PATENCY WIT 10CC AIR. 0 ASPIRATED. FLUSHED PER ORDERS. JEVITY 1.5 IN FUSING AT 40CC/HR. DSG SOILED. AREA CLEANSED AND DSG CHANGED. SOME BLEEDING FROM SITE OBSERVED. SITE VERY ODOROUS PRIOR TO DSG CHANGE. 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 O2 PER TRACH COLLAR AT 13 LITERS . BOTTOM JJ D/T EXCORIATION. REPORTS OF LOOSE STOOLS BY OFF GOING NURSE. TELEMETRY IN PLACE. SUCTION IN PLACE. DENIES ANY NEEDS AT THIS TIME.
[2019-07-08 04:30] VITALS: BP 112/46
[2019-07-08 07:53] VITALS: BP 105/54
[2019-07-08 11:27] VITALS: BP 97/43
--- NOTE | 2019-07-08 14:57 | NUR ---
I have reviewed this patient and I concur with the Shift Assessment completed by the Licensed Practical Nurse today this shift.
[2019-07-08 15:44] VITALS: BP 93/41
--- NOTE | 2019-07-08 19:15 | NUR ---
RECEIVED REPORT, WILL ASSUMJE CARE OF PT, ASKING FOR AIR TO BE TURNED DOWN, DENIES ANY OTHER NEEDS AT THIS TIME, BED IS LOW, SRX2, CALL LIGHT IN REACH, WILL CONTINUE PLAN OF CARE
--- NOTE | 2019-07-08 19:53 | NUR ---
PLACED PT ON BED GR
[2019-07-08 20:00] VITALS: BP 136/60
[2019-07-09] VITALS: BP 139/54
--- NOTE | 2019-07-09 03:03 | NUR ---
CHANGED PEG TUBE BAG
--- NOTE | 2019-07-09 03:07 | NUR ---
I have reviewed this patient and I concur with the Shift Assessment completed by the Licensed Practical Nurse today this shift.
[2019-07-09 04:00] VITALS: BP 111/52
[2019-07-09 05:41] LABS: BASOPHILS 0.1 % (0-2); EOSINOPHILS 0.1 % (0-7); HEMATOCRIT 36.5 % (36.0-48.0); HEMOGLOBIN 11.7 g/dL (12-16); IMMATURE GRANULOCYTES 1.1 % (0-5); LYMPHOCYTES 29.5 % (15-50); MCH 30.1 pg (26.0-34.0); MCHC 32.1 g/dL (31.0-37.0); MCV 93.8 fL (80.0-100.0); MEAN PLATELET VOLUME 8.8 fL (7.4-10.4); MONOCYTES 8.5 % (2-11); NEUTROPHILS 60.7 % (40-80); PLATELET COUNT 331 10x3/uL (130-400); RBC 3.89 10x6/uL (4.00-5.40); RDW 14.7 % (11.5-14.5)
[2019-07-09 05:56] LABS: CALC OSMOLALITY 275 mosm/kg (275-300); CALCIUM 8.9 mg/dL (8.5-10.1); CARBON DIOXIDE 27.2 mmol/L (21.0-32.0); CHLORIDE - SERUM 100 mmol/L (98-107); CREATININE - SERUM 0.5 mg/dL (0.6-1.3); GLUCOSE 111 mg/dL (74-106); POTASSIUM - SERUM 4.2 mmol/L (3.5-5.1); SODIUM 136 mmol/L (136-145); UREA NITROGEN 21 mg/dL (7-18); eGFR NON AFRICAN AMERICAN > 90 mL/min (90-120)
--- NOTE | 2019-07-09 08:03 | NUR ---
PT RESTING. RR EVEN AND UNLABORED. ADJUSTED TEMPERATURE IN ROOM PER REQUEST. DENIES FURTHER NEEDS OR PAIN AT THIS TIME. BED IN LOWEST POSITION. CALL LIGHT WITHIN REACH. WILL CONTINUE TO MONITOR.
[2019-07-09 09:33] VITALS: BP 116/48
--- NOTE | 2019-07-09 12:04 | NUR ---
I have reviewed this patient and I concur with the Shift Assessment completed by the Licensed Practical Nurse today this shift.
[2019-07-09 13:32] VITALS: BP 118/53
[2019-07-09 17:32] VITALS: BP 121/45
--- NOTE | 2019-07-09 19:15 | NUR ---
RECEIVED REPORT, WILL ASSUME CARE OF PT, VISITING WITH FAMILY, DENIES ANY NEEDS AT THIS TIME, BED IS LOW, SRX2, CALL LIGHT IN REACH, WILL CONTINUE PLAN OF CARE
[2019-07-09 20:00] VITALS: BP 106/57
[2019-07-10] VITALS: BP 106/56
--- NOTE | 2019-07-10 02:50 | NUR ---
I have reviewed this patient and I concur with the Shift Assessment completed by the Licensed Practical Nurse today this shift.
[2019-07-10 04:30] VITALS: BP 118/57
--- NOTE | 2019-07-10 07:22 | NUR ---
PATIENT IS RESTING QUIETLY AT THIS TIME. SHE JUST RECIEVED HER BREATHING TREATMENT. DENIES ANY NEEDS AT THIS TIME.
[2019-07-10 09:04] VITALS: BP 106/41
--- NOTE | 2019-07-10 10:04 | NUR ---
CHECKED RESIDUAL, THERE IS 5ML OF RESIDUAL IN HER PEG TUBE. FEEDINGS CONTINUED ORDERED.
--- NOTE | 2019-07-10 12:34 | MORECARE ---
CASE MANAGEMENT DISCHARGE SUMMARY PATIENT: CHON LUI UNIT: [id number] ADM DATE: 07/01/19 AGE: 68 : 50 SEX: F ROOM/BED: D.4844 AUTHOR: MONET,DOC PHYSICIAN: REFERRING PHYSICIAN: CHERELLE NAVARRETE MD DATE OF SERVICE: 07/10/19 Discharge Plan Patient Name: CHON LUI Facility: [facility] : 1950 Planned Disposition: Nursing Facility GINA Cert Anticipated Discharge Date: 07/06/19 Discharge Date: Expected LOS: 5 Initial Reviewer: [id number] Initial Review Date: 07/04/2019 Generated: 07/10/19 1:34 pm Comments DCP- Discharge Planning Updated by [id number]: Bryn Ha on 07/10/19 11:[address] Patient Name: CHON LUI Encounter No: [id number] : 1950 Primary Insurance: NOVASYSMCR Anticipated DC Date: 07-06-2019 Planned Disposition: Nursing Facility GINA Cert External Planned Provider: [facility], LONG TERM CARE MEDICAID BED Discharge Planning Comments: CM FAXED REFERRAL UPDATE TO [facility], . CM CONTINUES WAITING ADMISSION DETERMINATION FROM [facility]. Cvt Rn: Bryn Ha DCP- Discharge Planning Updated by [id number]: Bryn Ha on 07/05/19 3:[address] Patient Name: CHON LUI Encounter No: [id number] : 1950 Primary Insurance: NOVASYSMCR Anticipated DC Date: 07-06-2019 Planned Disposition: Nursing Facility GINA Cert External Planned Provider: [facility], LONG TERM CARE MEDICAID BED Discharge Planning Comments: CM RECEIVED CALL FROM [facility], PT IS IN PRISON CARE BED, THEY ARE AWARE AT FACLITY THAT PT'S DAUGHTER IS UNHAPPY AND SHE HAS TALKED TO ADMINISTRATION. ARRON ASKED TO BE KEPT INFORMED IF PT IS ACCEPTED SOMEWHERE ELSE. [facility] EVALUATED PT IN HOSPITAL ROOM TODAY, CM PROVIDED ADDITIONAL MEDICAL INFORMATION REQUESTED FOR ADMISSION REVIEW. CM WAITING ADMISSION DETERMINATION FROM [facility]. Cvt Rn: [place] [place] DCP- Discharge Planning Updated by [id number]: Bryn Ha on 07/05/19 7:[address] Patient Name: CHON LUI Admission Status: ER Accout number: [id number] Admission Date: 07-01-2019 : 1950 Admission Diagnosis: Attending: CHERELLE NAVARRETE Current LOS: 4 Anticipated DC Date: 07-06-2019 Planned Disposition: Intermediate Facility Primary Insurance: NOVASYSMCR PLANNED EXTERNAL PROVIDER: [facility] MEDICARE REHAB BED Discharge Planning Comments: CM RECEIVED CALL FROM DEBORAH BLUE, PT'S DAUGHTER, , WHO ADVISED THAT PT WILL NOT BE RETURNING TO [facility] DUE TO POOR CONDITIONS THERE. THEY WANT PT MOVED TO [facility] AND HAVE CALLED AND TALKED TO THE FACILITY ALREADY. CM MET WITH PT IN ROOM TO DISCUSS DISCHARGE PLANNING AND NEEDS. PT REPORTS SHE WAS IN REHAB AT [facility] AND DOES NOT WANT TO GO BACK THERE. SHE WANTS TO GO TO [facility] AND HER FAMILY HAS ALREADY CONTACTED THE FACILITY. CHOICE SIGNED BY PT. PT HAS WALKER, WHEELCHAIR, HOME OXYGEN, TRACH AND FEEDING SUPPLIES BUT CANNOT REMEMBER THE NAME OF HER HOME EQUIPMENT PROVIDER. PT HAS BEEN RECEIVING ALL EQUIPMENT RECENTLY FROM THE RESIDENTIAL. PT STATES SHE IS IN THE RESIDENTIAL UNTIL SHE CAN TAKE CARE OF HERSELF AT HOME. IMPORTANT MESSAGE FROM MEDICARE PROVIDED AND EXPLAINED. CM CALLED [facility], , SPOKE TO [facility] OF ADMISSIONS PROVIDED REFERRAL INFORMATION. CM FAXED REFERRAL TO [facility] AT [phone]. CM WAITING ADMISSION DETERMINATION FROM [facility]. Cvt Rn: Bryn Ha DCP- Discharge Planning Updated by [id number]: Randa Guido on 07/04/19 8:[address] RECEIVED A CALL FROM SUNDAY WITH [facility]. REQUESTED UPDATED GIVEN. SHE LEFT HER CELL # ([phone]) IF WE HAD ANY NEEDS, QUESTIONS, OR KNEW POTENTIAL DISCHARGE DATE. DCPIA - Discharge Planning Initial Assessment Updated by [id number]: Bryn Ha on 07/05/19 8:38 am * Is the patient Alert and Oriented? Yes * How many steps to enter\exit or inside your home? NONE * PCP PATIENT CANNOT REMEMBER HER PRIMARY CARE DOCTOR * Pharmacy [facility] * Preadmission Environment Intermediate Facility * Facility Name [facility] ([facility]) * ADLs Partial Dependent * Partial ADLs (Assistance needed) Ambulation Bathing Dressing Medication Management Toileting Transfers * Equipment Bedside Commode Enteral Feeding and Supplies Oxygen Trach Care Supplies Walker Wheelchair * Other Equipment PATIENT CANNOT REMEMBER MEDICAL EQUIPMENT PROVIDER * List name and contact numbers for known caregivers / representatives who currently or will assist patient after discharge: DEBORHA KELLY, DTR, * Verbal permission to speak to the caregivers and representatives has been obtained from the patient. Yes * Community resources currently utilized None * Please name any agencies selected above. NONE * Additional services required to return to the preadmission environment? No * Can the patient safely return to the preadmission environment? Yes * Has this patient been hospitalized within the prior 30 days at any hospital? No Coverage Notice Reviewer: [id number] Holly Ha Notice Issued Date-Time: 07/04/2019 15:00 Notice Type: Patient Choice Letter Notice Delivered To: Patient Relationship to Patient: Licensed Final Expense Agents Name: Delivery Method: HAND - Hand Delivered Cassandra Days: Prior Verbal Notification: Recipient Understood Notice: Yes Recipient Signature: Yes Med Rec Note Co-signed by Attending: Coverage Notice Comment: [facility] Reviewer: [id number] Holly Ha Notice Issued Date-Time: 07/05/2019 15:00 Notice Type: IM Discharge Notice Notice Delivered To: Patient Relationship to Patient: Licensed Final Expense Agents Name: Delivery Method: HAND - Hand Delivered Cassandra Days: Prior Verbal Notification: Recipient Understood Notice: Yes Recipient Signature: Yes Med Rec Note Co-signed by Attending: Coverage Notice Comment: Last DP export: 07/05/19 3:22 Patient Name: CHON LUI Page 76181 at 1234 All edits/amendments must be made on the electronic document DICTATION DATE: 07/10/19 1234 PEELED POTATO INSPECTOR: NAHUN 07/10/19 1234 RPT#: [id number] DC DATE: STATUS: ADM IN [facility] [address] [place] [address] END OF REPORT
--- NOTE | 2019-07-10 13:52 | NUR ---
Nutrition Follow-up: Receiving Jevity 1.5 @ 40 mL/hr with tolerance. RN reports no diarrhea or large residuals. Diet: Jevity 1.5 @ 40 No new wt Last BM: 07/08 per chart Labs reviewed Meds reviewed -Continue current TF as tolerated. -RD following.
[2019-07-10 13:54] VITALS: BP 99/45
[2019-07-10 16:08] LABS: FUNGUS MYCOLOGY CULTURE Preliminary report (())
--- NOTE | 2019-07-10 16:14 | NUR ---
PATIENT HAS BEEN REPOSITIONED SEVERAL TIMES. SHE DENIES ANY NEEDS AT THIS TIME. SHE HAS USED THE BED GR 3X. SHE SUCCESSFULLY REQUEST THE BEDPAN AND HAS NOT BEEN INCONTIENENT.
[2019-07-10 17:00] VITALS: BP 98/52
--- NOTE | 2019-07-10 17:17 | MORECARE ---
CASE MANAGEMENT DISCHARGE SUMMARY PATIENT: CHON LUI UNIT: [id number] ADM DATE: 07/01/19 AGE: 68 : 50 SEX: F ROOM/BED: D.6822 AUTHOR: MONET,DOC PHYSICIAN: REFERRING PHYSICIAN: CHERELLE NAVARRETE MD DATE OF SERVICE: 07/10/19 Discharge Plan Patient Name: CHON LUI Facility: [facility] : 1950 Planned Disposition: Shelter Facility Anticipated Discharge Date: 07/11/19 Discharge Date: Expected LOS: 10 Initial Reviewer: [id number] Initial Review Date: 07/04/2019 Generated: 07/10/19 6:16 pm Comments DCP- Discharge Planning Updated by [id number]: Bryn Ha on 07/10/19 4:[address] Patient Name: CHON LUI Encounter No: [id number] : 1950 Primary Insurance: NOVASYSMCR Anticipated DC Date: 07-11-2019 Planned Disposition: Shelter Facility External Planned Provider: [facility], MEDICARE REHAB BED DCP follow-up note: CM RECEIVED CALL FROM [facility], THEY WILL ACCEPT PT AT DISCHARGE, PT WILL GO TO SKILLED BED. UPDATE FAXED TO [facility] AT [phone]. FOR DISCHARGE TO [facility], FAX DISCHARGE INFORMATION TO [facility] AT [phone]; NURSE REPORT TO BE CALLED TO [facility] AT [phone]. PT TO TRANSPORT VIA AMBULANCE . DIMITRI Howell DCP- Discharge Planning Updated by [id number]: Bryn Ha on 07/10/19 11:[address] Patient Name: CHON LUI Encounter No: [id number] : 1950 Primary Insurance: NOVASYSMCR Anticipated DC Date: 07-06-2019 Planned Disposition: Nursing Facility GINA Cert External Planned Provider: [facility] CHCF CARE MEDICAID BED Discharge Planning Comments: CM FAXED REFERRAL UPDATE TO [facility], . CM CONTINUES WAITING ADMISSION DETERMINATION FROM [facility]. Permit Review Assistant: Bryn Ha DCP- Discharge Planning Updated by [id number]: Bryn Ha on 07/05/19 3:[address] Patient Name: CHON LUI Encounter No: [id number] : 1950 Primary Insurance: NOVASYSMCR Anticipated DC Date: 07-06-2019 Planned Disposition: Nursing Facility GINA Cert External Planned Provider: [facility] CH[facility] CARE MEDICAID BED Discharge Planning Comments: CM RECEIVED CALL FROM ARRON OF [facility], PT IS IN [employer] G[employer]ERING [employer] PERSON CARE BED, THEY ARE AWARE AT FACLITY THAT PT'S DAUGHTER IS UNHAPPY AND SHE HAS TALKED TO ADMINISTRATION. ARRON ASKED TO BE KEPT INFORMED IF PT IS ACCEPTED SOMEWHERE ELSE. [facility] OF [facility] EVALUATED PT IN HOSPITAL ROOM TODAY, CM PROVIDED ADDITIONAL MEDICAL INFORMATION REQUESTED FOR ADMISSION REVIEW. CM WAITING ADMISSION DETERMINATION FROM [facility]. Permit Review Assistant: Bryn Ha DCP- Discharge Planning Updated by [id number]: Bryn Ha on 07/05/19 7:[address] Patient Name: CHON LUI Admission Status: ER Accout number: [id number] Admission Date: 07-01-2019 : 1950 Admission Diagnosis: Attending: CHERELLE NAVARRETE Current LOS: 4 Anticipated DC Date: 07-06-2019 Planned Disposition: Shelter Facility Primary Insurance: NOVASYSMCR PLANNED EXTERNAL PROVIDER: [facility] MEDICARE REHAB BED Discharge Planning Comments: CM RECEIVED CALL FROM DEBORAH BLUE, PT'S DAUGHTER, , WHO ADVISED THAT PT WILL NOT BE RETURNING TO [facility] DUE TO POOR CONDITIONS THERE. THEY WANT PT MOVED TO [facility] AND HAVE CALLED AND TALKED TO THE FACILITY ALREADY. CM MET WITH PT IN ROOM TO DISCUSS DISCHARGE PLANNING AND NEEDS. PT REPORTS SHE WAS IN REHAB AT [facility] AND DOES NOT WANT TO GO BACK THERE. SHE WANTS TO GO TO [facility] AND HER FAMILY HAS ALREADY CONTACTED THE FACILITY. CHOICE SIGNED BY PT. PT HAS WALKER, WHEELCHAIR, HOME OXYGEN, TRACH AND FEEDING SUPPLIES BUT CANNOT REMEMBER THE NAME OF HER HOME EQUIPMENT PROVIDER. PT HAS BEEN RECEIVING ALL EQUIPMENT RECENTLY FROM [facility]. PT STATES SHE IS IN THE [facility] UNTIL SHE CAN TAKE CARE OF HERSELF AT HOME. IMPORTANT MESSAGE FROM MEDICARE PROVIDED AND EXPLAINED. CM CALLED [facility], , SPOKE TO [facility] OF ADMISSIONS PROVIDED REFERRAL INFORMATION. CM FAXED REFERRAL TO [facility] AT [phone]. CM WAITING ADMISSION DETERMINATION FROM [facility]. Permit Review Assistant: Bryn Ha DCP- Discharge Planning Updated by [id number]: Randa Guido on 07/04/19 8:[address] RECEIVED A CALL FROM SUNDAY WITH [facility]. REQUESTED UPDATED GIVEN. SHE LEFT HER CELL # ([phone]) IF WE HAD ANY NEEDS, QUESTIONS, OR KNEW POTENTIAL DISCHARGE DATE. DCPIA - Discharge Planning Initial Assessment Updated by [id number]: Bryn Ha on 07/05/19 8:38 am * Is the patient Alert and Oriented? Yes * How many steps to enter\exit or inside your home? NONE * PCP PATIENT CANNOT REMEMBER HER PRIMARY CARE DOCTOR * Pharmacy [facility] * Preadmission Environment Shelter Facility * Facility Name [facility] ([facility]) * ADLs Partial Dependent * Partial ADLs (Assistance needed) Ambulation Bathing Dressing Medication Management Toileting Transfers * Equipment Bedside Commode Enteral Feeding and Supplies Oxygen Trach Care Supplies Walker Wheelchair * Other Equipment PATIENT CANNOT REMEMBER MEDICAL EQUIPMENT PROVIDER * List name and contact numbers for known caregivers / representatives who currently or will assist patient after discharge: DEBORAH KELLY DTR, * Verbal permission to speak to the caregivers and representatives has been obtained from the patient. Yes * Community resources currently utilized None * Please name any agencies selected above. NONE * Additional services required to return to the preadmission environment? No * Can the patient safely return to the preadmission environment? Yes * Has this patient been hospitalized within the prior 30 days at any hospital? No Coverage Notice Reviewer: [id number] Holly Ha Notice Issued Date-Time: 07/04/2019 15:00 Notice Type: Patient Choice Letter Notice Delivered To: Patient Relationship to Patient: Print Inspector Name: Delivery Method: HAND - Hand Delivered Cassandra Days: Prior Verbal Notification: Recipient Understood Notice: Yes Recipient Signature: Yes Med Rec Note Co-signed by Attending: Coverage Notice Comment: [facility] Reviewer: [id number] Holly Ha Notice Issued Date-Time: 07/05/2019 15:00 Notice Type: IM Discharge Notice Notice Delivered To: Patient Relationship to Patient: Print Inspector Name: Delivery Method: HAND - Hand Delivered Cassandra Days: Prior Verbal Notification: Recipient Understood Notice: Yes Recipient Signature: Yes Med Rec Note Co-signed by Attending: Coverage Notice Comment: Last DP export: 07/10/19 11:34 Patient Name: CHON LUI Page 22513 at 1717 All edits/amendments must be made on the electronic document DICTATION DATE: 07/10/191715 DESIGN MANAGER: NAHUN 07/10/191715 RPT#: [id number] DC DATE: STATUS: ADM IN [facility] [address] [place] [address] END OF REPORT
--- NOTE | 2019-07-10 19:15 | NUR ---
RECEIVED REPORT, WILL ASSUME CARE OF PT, DENIES ANY NEEDS, BED IS LOW, SRX2, CALL LIGHT IN REACH, WILL CONTINUE PLAN OF CARE
[2019-07-10 20:00] VITALS: BP 134/50
[2019-07-11] VITALS: BP 107/51
--- NOTE | 2019-07-11 03:51 | NUR ---
I have reviewed this patient and I concur with the Shift Assessment completed by the Licensed Practical Nurse today this shift.
[2019-07-11 04:00] VITALS: BP 135/48
[2019-07-11 05:30] LABS: BASOPHILS 0.3 % (0-2); EOSINOPHILS 0.7 % (0-7); HEMATOCRIT 33.6 % (36.0-48.0); HEMOGLOBIN 10.8 g/dL (12-16); IMMATURE GRANULOCYTES 1.2 % (0-5); MCH 30.3 pg (26.0-34.0); MCHC 32.1 g/dL (31.0-37.0); MCV 94.1 fL (80.0-100.0); MEAN PLATELET VOLUME 8.6 fL (7.4-10.4); MONOCYTES 7.2 % (2-11); NEUTROPHILS 61.6 % (40-80); PLATELET COUNT 288 10x3/uL (130-400); RBC 3.57 10x6/uL (4.00-5.40); WBC 6.8 10x3/uL (4.8-10.8)
[2019-07-11 05:55] LABS: CALC OSMOLALITY 277 mosm/kg (275-300); CALCIUM 8.5 mg/dL (8.5-10.1); CARBON DIOXIDE 28.9 mmol/L (21.0-32.0); CHLORIDE - SERUM 101 mmol/L (98-107); CREATININE - SERUM 0.6 mg/dL (0.6-1.3); GLUCOSE 109 mg/dL (74-106); POTASSIUM - SERUM 4.2 mmol/L (3.5-5.1); SODIUM 137 mmol/L (136-145); UREA NITROGEN 22 mg/dL (7-18); eGFR NON AFRICAN AMERICAN > 90 mL/min (90-120)
--- NOTE | 2019-07-11 07:04 | NUR ---
RECIEVED REPORT. PATIENT IS ALERT AND AWAKE. SHE IS RESTING ON HER BACK AT THIS TIME. SHE DENIES ANY NEEDS AT THIS TIME.
[2019-07-11 09:01] VITALS: BP 117/42
[2019-07-11 13:25] VITALS: BP 128/75
[2019-07-11 17:15] VITALS: BP 114/52
--- NOTE | 2019-07-11 18:22 | NUR ---
CHANGED DRESSING AROUND PEG TUBE.
--- NOTE | 2019-07-11 19:23 | NUR ---
AWAKE AND ALERT TUBE FEEDING GOING AT THIS TIME PT TOLERATING WELL HOB UP SRX2 AND CALL LIGHT IS IN REACH LCTA BED LOW AND LOCKED
[2019-07-11 20:00] VITALS: BP 127/45
[2019-07-12] VITALS: BP 125/47
--- NOTE | 2019-07-12 02:56 | NUR ---
I have reviewed this patient and I concur with the Shift Assessment completed by the Licensed Practical Nurse today this shift.
[2019-07-12 06:27] VITALS: BP 111/49
--- NOTE | 2019-07-12 08:20 | NUR ---
PEG TUBE FEEDING BAG CHANGED.
[2019-07-12 09:36] VITALS: BP 127/88
--- NOTE | 2019-07-12 09:50 | NUR ---
PT RECEIVED BED BATH BY KETURAH.
[2019-07-12 11:10] LABS: FUNGUS CULTURE RESULT 1 Candida albicans (())
--- NOTE | 2019-07-12 13:49 | NUR ---
PER PULMONOLOGY NOTE IT IS OK FOR PT TO DISCHARGE TODAY. [facility] HAS CALLED DR. NAVARRETE'S OFFICE TWICE TO SPEAK WITH [facility] GOLDBER[facility] WITH NO CALL BACK. I CALLED OFFICE AND STATED TO THEM THAT [facility] NEEDS TO SPEAK WITH [facility] ANP AND PULMONOLGY SIGNED OFF FOR DISCAHRGE ON PT. THEY STATED THEY WILL GET A MESSAGE BACK TO [facility].
--- NOTE | 2019-07-12 14:05 | NUR ---
Nutrition Follow-up: Per nurse, pt tolerating TF at goal rate. Diet: Jevity 1.5 @ 40 No new wt Last BM: 07/09 per chart Labs noted: Glu 109 Meds noted: Lasix, Sodium Chloride, Florastor -Continue current TF as tolerated. -RD following.
[2019-07-12] MEDS ORDERED: OMNICEF300 MG PO (14:25)
--- NOTE | 2019-07-12 14:27 | NUR ---
[facility] FELIPE APN TO CALL WITH NEW ORDERS. I REVIEWED THE DISCHARGE MEDS WITH HIM.
--- NOTE | 2019-07-12 15:20 | MORECARE ---
CASE MANAGEMENT DISCHARGE SUMMARY PATIENT: CHON LUI UNIT: [id number] ADM DATE: 07/01/19 AGE: 68 : 50 SEX: F ROOM/BED: D.0302 AUTHOR: MONET,DOC PHYSICIAN: REFERRING PHYSICIAN: CHERELLE NAVARRETE MD DATE OF SERVICE: 07/12/19 Discharge Plan Patient Name: CHON LUI Facility: [facility]:[place] : 1950 Planned Disposition: [facility] Facility Anticipated Discharge Date: 07/11/19 Discharge Date: Expected LOS: 10 Initial Reviewer: [id number] Initial Review Date: 07/04/2019 Generated: 07/12/19 4:19 pm Comments DCP- Discharge Planning Updated by [id number]: Bryn Ha on 07/10/19 4:[address] Patient Name: CHON LUI Encounter No: [id number] : 1950 Primary Insurance: NOVASYSMCR Anticipated DC Date: 07-11-2019 Planned Disposition: [facility] Facility External Planned Provider: [facility], MEDICARE REHAB BED DCP follow-up note: CM RECEIVED CALL FROM [facility], THEY WILL ACCEPT PT AT DISCHARGE, PT WILL GO TO SKILLED BED. UPDATE FAXED TO [facility] AT [phone]. FOR DISCHARGE TO [facility], FAX DISCHARGE INFORMATION TO [facility] AT [phone]; NURSE REPORT TO BE CALLED TO [facility] AT [phone]. PT TO TRANSPORT VIA AMBULANCE . DIMITRI Howell DCP- Discharge Planning Updated by [id number]: Bryn Ha on 07/10/19 11:[address] Patient Name: CHON LUI Encounter No: [id number] : 1950 Primary Insurance: NOVASYSMCR Anticipated DC Date: 07-06-2019 Planned Disposition: Nursing Facility GINA Cert External Planned Provider: [facility] CHCF CARE MEDICAID BED Discharge Planning Comments: CM FAXED REFERRAL UPDATE TO [facility], . CM CONTINUES WAITING ADMISSION DETERMINATION FROM [facility]. 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 ARRON ASKED TO BE KEPT INFORMED IF PT IS ACCEPTED SOMEWHERE ELSE. [facility] OF [facility] EVALUATED PT IN HOSPITAL ROOM TODAY, CM PROVIDED ADDITIONAL MEDICAL INFORMATION REQUESTED FOR ADMISSION REVIEW. CM WAITING ADMISSION DETERMINATION FROM [facility]. Mortgage Processing Manager: Bryn Ha DCP- Discharge Planning Updated by [id number]: Bryn Ha on 07/05/19 7:[address] Patient Name: CHON LUI Admission Status: ER Accout number: [id number] Admission Date: 07-01-2019 : 1950 Admission Diagnosis: Attending: CHERELLE NAVARRETE Current LOS: 4 Anticipated DC Date: 07-06-2019 Planned Disposition: [facility] Facility Primary Insurance: NOVASYSMCR PLANNED EXTERNAL PROVIDER: [facility] MEDICARE REHAB BED Discharge Planning Comments: CM RECEIVED CALL FROM DEBORAH BLUE, PT'S DAUGHTER, , WHO ADVISED THAT PT WILL NOT BE RETURNING TO [facility] DUE TO POOR CONDITIONS THERE. THEY WANT PT MOVED TO [facility] AND HAVE CALLED AND TALKED TO THE FACILITY ALREADY. CM MET WITH PT IN ROOM TO DISCUSS DISCHARGE PLANNING AND NEEDS. PT REPORTS SHE WAS IN REHAB AT [facility] AND DOES NOT WANT TO GO BACK THERE. SHE WANTS TO GO TO [facility] AND HER FAMILY HAS ALREADY CONTACTED THE FACILITY. CHOICE SIGNED BY PT. PT HAS WALKER, WHEELCHAIR, HOME OXYGEN, TRACH AND FEEDING SUPPLIES BUT CANNOT REMEMBER THE NAME OF HER HOME EQUIPMENT PROVIDER. PT HAS BEEN RECEIVING ALL EQUIPMENT RECENTLY FROM THE [facility]. PT STATES SHE IS IN THE [facility] UNTIL SHE CAN TAKE CARE OF HERSELF AT HOME. IMPORTANT MESSAGE FROM MEDICARE PROVIDED AND EXPLAINED. CM CALLED [facility], , SPOKE TO [facility] OF ADMISSIONS PROVIDED REFERRAL INFORMATION. CM FAXED REFERRAL TO [facility] AT [phone]. CM WAITING ADMISSION DETERMINATION FROM [facility]. Mortgage Processing Manager: rByn Ha DCP- Discharge Planning Updated by [id number]: Randa Hay on 07/04/19 8:[address] RECEIVED A CALL FROM SUNDAY WITH [facility]. REQUESTED UPDATED GIVEN. SHE LEFT HER CELL # ([phone]) IF WE HAD ANY NEEDS, QUESTIONS, OR KNEW POTENTIAL DISCHARGE DATE. DCPIA - Discharge Planning Initial Assessment Updated by [id number]: Bryn Ha on 07/05/19 8:38 am * Is the patient Alert and Oriented? Yes * How many steps to enter\exit or inside your home? NONE * PCP PATIENT CANNOT REMEMBER HER PRIMARY CARE DOCTOR * Pharmacy [facility] * Preadmission Environment [facility] Facility * Facility Name [facility] ([facility]) * ADLs Partial Dependent * Partial ADLs (Assistance needed) Ambulation Bathing Dressing Medication Management Toileting Transfers * Equipment Bedside Commode Enteral Feeding and Supplies Oxygen Trach Care Supplies Walker Wheelchair * Other Equipment PATIENT CANNOT REMEMBER MEDICAL EQUIPMENT PROVIDER * List name and contact numbers for known caregivers / representatives who currently or will assist patient after discharge: DEBORAH KELLY DTR, * Verbal permission to speak to the caregivers and representatives has been obtained from the patient. Yes * Community resources currently utilized None * Please name any agencies selected above. NONE * Additional services required to return to the preadmission environment? No * Can the patient safely return to the preadmission environment? Yes * Has this patient been hospitalized within the prior 30 days at any hospital? No External Providers External Provider: [facility] Next Contact Date: 07/05/2019 Service Request Date: Service Type: Resolution: Reviewer: Comments: Coverage Notice Reviewer: [id number] - Bryn Ha Notice Issued Date-Time: 07/04/2019 15:00 Notice Type: Patient Choice Letter Notice Delivered To: Patient Relationship to Patient: Deputy Chief Executive Name: Delivery Method: HAND - Hand Delivered Cassandra Days: Prior Verbal Notification: Recipient Understood Notice: Yes Recipient Signature: Yes Med Rec Note Co-signed by Attending: Coverage Notice Comment: [facility] Reviewer: [id number] Holly Ha Notice Issued Date-Time: 07/05/2019 15:00 Notice Type: IM Discharge Notice Notice Delivered To: Patient Relationship to Patient: Deputy Chief Executive Name: Delivery Method: HAND - Hand Delivered Cassandra Days: Prior Verbal Notification: Recipient Understood Notice: Yes Recipient Signature: Yes Med Rec Note Co-signed by Attending: Coverage Notice Comment: Last DP export: 07/10/19 4:17 Patient Name: CHON LUI Page 15233 at 1520 All edits/amendments must be made on the electronic document DICTATION DATE: 07/12/191518 TURN LASTER: NAHUN 07/12/191518 RPT#: [id number] DC DATE: STATUS: ADM IN [facility] [address] [place] [address] END OF REPORT
--- NOTE | 2019-07-12 15:25 | NUR ---
CALLED REPORT TO CHENTE NURSE AT [facility]. SHE STATES THE [facility] WILL BRING O2 BUT TO FLUSH PEG TUBE AND SHE WILL RESTART TF WHEN PT GETS THERE. I VERBALIZED UNDERSTANDING.
--- NOTE | 2019-07-12 15:28 | MORECARE ---
CASE MANAGEMENT DISCHARGE SUMMARY PATIENT: CHON LUI UNIT: [id number] ADM DATE: 07/01/19 AGE: 68 : 50 SEX: F ROOM/BED: D.2108 AUTHOR: MONET,DOC PHYSICIAN: REFERRING PHYSICIAN: CHERELLE NAVARRETE MD DATE OF SERVICE: 07/12/19 Discharge Plan Patient Name: CHON LUI Facility: [facility]:[place] : 1950 Planned Disposition: Alf Facility Anticipated Discharge Date: 07/11/19 Discharge Date: Expected LOS: 10 Initial Reviewer: [id number] Initial Review Date: 07/04/2019 Generated: 07/12/19 4:27 pm Comments DCP- Discharge Planning Updated by [email or web address]: Bryn Ha on 07/12/19 2:[address] Patient Name: CHON LUI Encounter No: [id number] : 1950 Primary Insurance: NOVASYSMCR Anticipated DC Date: 07-11-2019 Planned Disposition: Alf Facility External Planned Provider: [facility], LONG TERM CARE MEDICAID BED DCP follow-up note: CM RECEIVED CALL FROM [facility] WHO REPORTS THAT THEY CAN ACCEPT PT FOR [facility] TODAY AND IF POSSIBLE, CAN CM HAVE THE DOCTOR DO A PEER TO PEER WITH INSURANCE COMPANY TO TRY TO GET THEM TO APPROVE REHAB SERVICES FOR PT. CM CALLED [facility] ASKING FOR RETURN CALL. ELSA RECEIVED NOTE FROM NURSE INFORMING THAT DR. GÓMEZ STATES PT IS READY TO DISCHARGE IF THE INTERMEDIATE HAS SUCTION, OXYGEN AND DEHUMIDIFICATION. CM CALLED [facility] VERIFIED THEY HAVE EVERYTHING FOR PT. CM SPOKE TO PT IN ROOM, PT IN AGREEMENT WITH DISCHARGE TO [facility]. CM CALLED AND NOTIFIED PT'S DAUGHTER, AT PT'S REQUEST. CM RECEIVED CALL FROM [facility] WHO AGREES WITH [employer], WILL NOT AGREE TO DO PEER TO PEER FOR REHAB SERVICES. CM NOTIFED GARFIELD AT [facility]. ELECTRICAL TECHNICIAN INSTRUCTOR NURSE NOTIFIED. CM FAXED DISCHARGE INFORMATION TO [facility] AT [phone]. NURSE REPORT TO BE CALLED TO [facility] AT [phone]. [facility] TO ARRANGE VAN TRANSPORTATION FOR 4PM TODAY. . DIMITRI Howell DCP- Discharge Planning Updated by [email or web address]: Bryn Ha on 07/10/19 4:[address] Patient Name: CHON LUI Encounter No: [id number] : 1950 Primary Insurance: NOVASYSMCR Anticipated DC Date: 07-11-2019 Planned Disposition: Alf Facility External Planned Provider: [facility] DCP follow-up note: CM RECEIVED CALL FROM [facility], THEY WILL ACCEPT PT AT DISCHARGE, PT WILL GO TO SKILLED BED. UPDATE FAXED TO [facility] AT [phone]. FOR DISCHARGE TO [facility], FAX DISCHARGE INFORMATION TO [facility] AT [phone]; NURSE REPORT TO BE CALLED TO [facility] AT [phone]. PT TO TRANSPORT VIA AMBULANCE . DIMITRI Howell DCP- Discharge Planning Updated by [id number]: Bryn Ha on 07/10/19 11:[address] Patient Name: CHON LUI Encounter No: [id number] : 1950 Primary Insurance: NOVASYSMCR Anticipated DC Date: 07-06-2019 Planned Disposition: Nursing Facility GINA Cert External Planned Provider: [facility] TERM CARE MEDICAID BED Discharge Planning Comments: [facility] . CM CONTINUES WAITING ADMISSION DETERMINATION FROM [facility]. Track Sweeper: Bryn Ha DCP- Discharge Planning Updated by [id number]: Bryn Ha on 07/05/19 3:[address] Patient Name: CHON LUI Encounter No: [id number] : 1950 Primary Insurance: NOVASYSMCR Anticipated DC Date: 07-06-2019 Planned Disposition: Nursing Facility [facility] Cert External Planned Provider: [facility] TERM CARE MEDICAID BED Discharge Planning Comments: CM RECEIVED CALL FROM [facility], PT IS [facility] BED, THEY ARE AWARE AT FACLITY THAT PT'S DAUGHTER IS UNHAPPY AND SHE HAS TALKED TO ADMINISTRATION. [facility] ASKED TO BE KEPT INFORMED IF PT IS ACCEPTED SOMEWHERE ELSE. [facility] EVALUATED PT IN HOSPITAL ROOM TODAY, CM PROVIDED ADDITIONAL MEDICAL INFORMATION REQUESTED FOR ADMISSION REVIEW. CM WAITING ADMISSION DETERMINATION FROM [facility]. Track Sweeper: Bryn Ha DCP- Discharge Planning Updated by [id number]: Bryn Ha on 07/05/19 7:[address] Patient Name: CHON LUI Admission Status: ER Accout number: [id number] Admission Date: 07-01-2019 : 1950 Admission Diagnosis: Attending: CHERELLE NAVARRETE Current LOS: 4 Anticipated DC Date: 07-06-2019 Planned Disposition: Alf Facility Primary Insurance: [employer] PLANNED EXTERNAL PROVIDER: [facility] MEDICARE REHAB BED Discharge Planning Comments: CM RECEIVED CALL FROM DEBORAH BLUE, PT'S DAUGHTER, , WHO ADVISED THAT PT WILL NOT BE RETURNING TO [facility] DUE TO POOR CONDITIONS THERE. THEY WANT PT MOVED TO [facility] AND HAVE CALLED AND TALKED TO THE FACILITY ALREADY. CM MET WITH PT IN ROOM TO DISCUSS DISCHARGE PLANNING AND NEEDS. PT REPORTS SHE WAS IN REHAB AT [facility] AND DOES NOT WANT TO GO BACK THERE. SHE WANTS TO GO TO [facility] AND HER FAMILY HAS ALREADY CONTACTED THE FACILITY. CHOICE SIGNED BY PT. PT HAS WALKER, WHEELCHAIR, HOME OXYGEN, TRACH AND FEEDING SUPPLIES BUT CANNOT REMEMBER THE NAME OF HER HOME EQUIPMENT PROVIDER. PT HAS BEEN RECEIVING ALL EQUIPMENT RECENTLY FROM THE INTERMEDIATE. PT STATES SHE IS IN THE INTERMEDIATE UNTIL SHE CAN TAKE CARE OF HERSELF AT HOME. IMPORTANT MESSAGE FROM MEDICARE PROVIDED AND EXPLAINED. CM CALLED [facility], , SPOKE TO [facility] OF [facility] PROVIDED REFERRAL INFORMATION. CM FAXED REFERRAL TO [facility] AT [phone]. CM WAITING ADMISSION DETERMINATION FROM [facility]. Track Sweeper: Bryn Ha DCP- Discharge Planning Updated by [id number]: Randa Guido on 07/04/19 8:[address] RECEIVED A CALL FROM SUNDAY WITH [facility]. REQUESTED UPDATED GIVEN. SHE LEFT HER CELL # ([phone]) IF WE HAD ANY NEEDS, QUESTIONS, OR KNEW POTENTIAL DISCHARGE DATE. DCPIA - Discharge Planning Initial Assessment Updated by [id number]: Bryn Ha on 07/05/19 8:38 am * Is the patient Alert and Oriented? Yes * How many steps to enter\exit or inside your home? NONE * PCP PATIENT CANNOT REMEMBER HER PRIMARY CARE DOCTOR * Pharmacy [facility] * Preadmission Environment Alf Facility * Facility Name [facility]) * ADLs Partial Dependent * Partial ADLs (Assistance needed) Ambulation Bathing Dressing Medication Management Toileting Transfers * Equipment Bedside Commode Enteral Feeding and Supplies Oxygen Trach Care Supplies Walker Wheelchair * Other Equipment PATIENT CANNOT REMEMBER MEDICAL EQUIPMENT PROVIDER * List name and contact numbers for known caregivers / representatives who currently or will assist patient after discharge: DEBORAH KELLY DTR, * Verbal permission to speak to the caregivers and representatives has been obtained from the patient. Yes * Community resources currently utilized None * Please name any agencies selected above. NONE * Additional services required to return to the preadmission environment? No * Can the patient safely return to the preadmission environment? Yes * Has this patient been hospitalized within the prior 30 days at any hospital? No External Providers [facility] Next Contact Date: 07/05/2019 Service Request Date: Service Type: Resolution: Reviewer: Comments: Coverage Notice Reviewer: [id number] Ha Notice Issued Date-Time: 07/04/2019 15:00 Notice Type: Patient Choice Letter Notice Delivered To: Patient Relationship to Patient: Director Of Labor Relations Name: Delivery Method: HAND - Hand Delivered Cassandra Days: Prior Verbal Notification: Recipient Understood Notice: Yes Recipient Signature: Yes Med Rec Note Co-signed by Attending: Coverage Notice Comment: [facility] Reviewer: [id number] Ha Notice Issued Date-Time: 07/05/2019 15:00 Notice Type: IM Discharge Notice Notice Delivered To: Patient Relationship to Patient: Director Of Labor Relations Name: Delivery Method: HAND - Hand Delivered Cassandra Days: Prior Verbal Notification: Recipient Understood Notice: Yes Recipient Signature: Yes Med Rec Note Co-signed by Attending: Coverage Notice Comment: Reviewer: [id number] Ha Notice Issued Date-Time: 07/12/2019 12:40 Notice Type: IM Discharge Notice Notice Delivered To: Patient Relationship to Patient: Director Of Labor Relations Name: Delivery Method: HAND - Hand Delivered Cassandra Days: Prior Verbal Notification: Recipient Understood Notice: Yes Recipient Signature: Yes Med Rec Note Co-signed by Attending: Coverage Notice Comment: Last DP export: 07/12/19 2:20 Patient Name: CHON LUI Page 31254 at 1528 All edits/amendments must be made on the electronic document DICTATION DATE: 07/12/191526 ENVIRONMENTAL COMPLIANCE INSPECTOR: NAHUN 07/12/191526 RPT#: [id number] DC DATE: STATUS: ADM IN [facility] [address] [place] [address] END OF REPORT
--- NOTE | 2019-07-12 15:36 | NUR ---
TELEMETRY DC'D. LEFT FA IV DC'D WITH CATH INTACT.
--- NOTE | 2019-07-12 15:43 | NUR ---
DISCHARGE INSTRUCTIONS EXPLAINED AND GIVEN TO PT. PT HAS NO FURTHER QUESTIONS. DISCHARGE PAPERS SIGNED. PT DRESSED AND WITING FOR [facility].
--- NOTE | 2019-07-12 15:49 | MORECARE ---
CASE MANAGEMENT DISCHARGE SUMMARY PATIENT: CHON LUI UNIT: [id number] ADM DATE: 07/01/19 AGE: 68 : 50 SEX: F ROOM/BED: D.9419 AUTHOR: MONET,DOC PHYSICIAN: REFERRING PHYSICIAN: CHERELLE NAVARRETE MD DATE OF SERVICE: 07/12/19 Discharge Plan Patient Name: CHON LUI Facility: [facility]:[place] : 1950 Planned Disposition: Chcf Facility Anticipated Discharge Date: 07/12/19 Discharge Date: Expected LOS: 11 Initial Reviewer: [id number] Initial Review Date: 07/04/2019 Generated: 07/12/19 4:48 pm Comments DCP- Discharge Planning Updated by [email or web address]: Bryn aH on 07/12/19 2:[address] Patient Name: CHON LUI Encounter No: [id number] : 1950 Primary Insurance: NOVASYSMCR Anticipated DC Date: 07-11-2019 Planned Disposition: Chcf Facility External Planned Provider: [facility], LONG TERM CARE MEDICAID BED DCP follow-up note: CM RECEIVED CALL FROM [facility] WHO REPORTS THAT THEY CAN ACCEPT PT FOR NURSING HOME CARE TODAY AND IF POSSIBLE, CAN CM HAVE THE DOCTOR DO A PEER TO PEER WITH INSURANCE COMPANY TO TRY TO GET THEM TO APPROVE REHAB SERVICES FOR PT. CM CALLED [facility] ASKING FOR RETURN CALL. ELSA RECEIVED NOTE FROM NURSE INFORMING THAT DR. GÓMEZ STATES PT IS READY TO DISCHARGE IF THE SKILLED NURSING HAS SUCTION, OXYGEN AND DEHUMIDIFICATION. CM CALLED [facility] VERIFIED THEY HAVE EVERYTHING FOR PT. CM SPOKE TO PT IN ROOM, PT IN AGREEMENT WITH DISCHARGE TO [facility]. CM CALLED AND NOTIFIED PT'S DAUGHTER, AT PT'S REQUEST. CM RECEIVED CALL FROM [facility]ENTES WHO AGREES WITH [employer] [facility], WILL NOT AGREE TO DO PEER TO PEER FOR REHAB SERVICES. CM NOTIFED GARFIELD AT [facility]. INTERNAL INVESTIGATOR NURSE NOTIFIED. CM FAXED DISCHARGE INFORMATION TO [facility] AT [phone]. NURSE REPORT TO BE CALLED TO [facility] AT [phone]. [facility] TO ARRANGE VAN TRANSPORTATION FOR 4PM TODAY. . DIMITRI Howell DCP- Discharge Planning Updated by [id number]: Bryn Ha on 07/10/19 4:[address] Patient Name: CHON LUI Encounter No: [id number] : 1950 Primary Insurance: NOVASYSMCR Anticipated DC Date: 07-11-2019 Planned Disposition: Chcf Facility External Planned Provider: [facility] B[facility] DCP follow-up note: CM RECEIVED CALL FROM [facility], THEY WILL ACCEPT PT AT DISCHARGE, PT WILL GO TO SKILLED BED. UPDATE FAXED TO [facility] AT [phone]. FOR DISCHARGE TO [facility], FAX DISCHARGE INFORMATION TO [facility] AT [phone]; NURSE REPORT TO BE CALLED TO [facility] AT [phone]. PT TO TRANSPORT VIA AMBULANCE . DIMITRI Howell DCP- Discharge Planning Updated by [id number]: Bryn Ha on 07/10/19 11:[address] Patient Name: CHON LUI Encounter No: [id number] : 1950 Primary Insurance: NOVASYSMCR Anticipated DC Date: 07-06-2019 Planned Disposition: Nursing Facility GINA Cert External Planned Provider: [facility] TERM CARE MEDICAID BED Discharge Planning Comments: [facility], . CM CONTINUES WAITING ADMISSION DETERMINATION FROM [facility]. Safety And Health Manager: Bryn Ha DCP- Discharge Planning Updated by [id number]: Bryn Ha on 07/05/19 3:[address] Patient Name: CHON LUI Encounter No: [id number] : 1950 Primary Insurance: NOVASYSMCR Anticipated DC Date: 07-06-2019 Planned Disposition: Nursing Facility GINA Cert External Planned Provider: [facility] TERM CARE MEDICAID BED Discharge Planning Comments: CM RECEIVED CALL FROM [facility], PT IS IN NURSING HOME CARE BED, THEY ARE AWARE AT FACLITY THAT PT'S DAUGHTER IS UNHAPPY AND SHE HAS TALKED TO ADMINISTRATION. [facility] ASKED TO BE KEPT INFORMED IF PT IS ACCEPTED SOMEWHERE ELSE. [facility] EVALUATED PT IN HOSPITAL ROOM TODAY, CM PROVIDED ADDITIONAL MEDICAL INFORMATION REQUESTED FOR ADMISSION REVIEW. CM WAITING ADMISSION DETERMINATION FROM [facility]. Safety And Health Manager: Bryn Ha DCP- Discharge Planning Updated by [id number]: Bryn Ha on 07/05/19 7:[address] Patient Name: CHON LUI Admission Status: ER Accout number: [id number] Admission Date: 07-01-2019 : 1950 Admission Diagnosis: Attending: CHERELLE NAVARRETE Current LOS: 4 Anticipated DC Date: 07-06-2019 Planned Disposition: Chcf Facility Primary Insurance: [employer] PLANNED EXTERNAL PROVIDER: [facility] MEDICARE REHAB BED Discharge Planning Comments: CM RECEIVED CALL FROM DEBORAH BLUE, PT'S DAUGHTER, , WHO ADVISED THAT PT WILL NOT BE RETURNING TO [facility] DUE TO POOR CONDITIONS THERE. THEY WANT PT MOVED TO [facility] AND HAVE CALLED AND TALKED TO THE FACILITY ALREADY. CM MET WITH PT IN ROOM TO DISCUSS DISCHARGE PLANNING AND NEEDS. PT REPORTS SHE WAS IN REHAB AT [facility] AND DOES NOT WANT TO GO BACK THERE. SHE WANTS TO GO TO [facility] AND HER FAMILY HAS ALREADY CONTACTED THE FACILITY. CHOICE SIGNED BY PT. PT HAS WALKER, WHEELCHAIR, HOME OXYGEN, TRACH AND FEEDING SUPPLIES BUT CANNOT REMEMBER THE NAME OF HER HOME EQUIPMENT PROVIDER. PT HAS BEEN RECEIVING ALL EQUIPMENT RECENTLY FROM THE SKILLED NURSING. PT STATES SHE IS IN THE SKILLED NURSING UNTIL SHE CAN TAKE CARE OF HERSELF AT HOME. IMPORTANT MESSAGE FROM MEDICARE PROVIDED AND EXPLAINED. CM CALLED [facility], , SPOKE TO [facility] OF [facility] PROVIDED REFERRAL INFORMATION. CM FAXED REFERRAL TO [facility] AT [phone]. CM WAITING ADMISSION DETERMINATION FROM [facility]. Safety And Health Manager: Bryn Ha DCP- Discharge Planning Updated by [email or web address]: Randa Guido on 07/04/19 8:[address] RECEIVED A CALL FROM SUNDAY WITH [facility]. REQUESTED UPDATED GIVEN. SHE LEFT HER CELL # ([phone]) IF WE HAD ANY NEEDS, QUESTIONS, OR KNEW POTENTIAL DISCHARGE DATE. DCPIA - Discharge Planning Initial Assessment Updated by [email or web address]: Bryn Ha on 07/05/19 8:38 am * Is the patient Alert and Oriented? Yes * How many steps to enter\exit or inside your home? NONE * PCP PATIENT CANNOT REMEMBER HER PRIMARY CARE DOCTOR * Pharmacy [facility] * Preadmission Environment Chcf Facility * Facility Name [facility] [employer] [facility]) * ADLs Partial Dependent * Partial ADLs (Assistance needed) Ambulation Bathing Dressing Medication Management Toileting Transfers * Equipment Bedside Commode Enteral Feeding and Supplies Oxygen Trach Care Supplies Walker Wheelchair * Other Equipment PATIENT CANNOT REMEMBER MEDICAL EQUIPMENT PROVIDER * List name and contact numbers for known caregivers / representatives who currently or will assist patient after discharge: DEBORAH KELLY DTR, * Verbal permission to speak to the caregivers and representatives has been obtained from the patient. Yes * Community resources currently utilized None * Please name any agencies selected above. NONE * Additional services required to return to the preadmission environment? No * Can the patient safely return to the preadmission environment? Yes * Has this patient been hospitalized within the prior 30 days at any hospital? No Coverage Notice Reviewer: DEVON Ha Notice Issued Date-Time: 07/04/2019 15:00 Notice Type: Patient Choice Letter Notice Delivered To: Patient Relationship to Patient: Senior Oracle Developer Name: Delivery Method: HAND - Hand Delivered Cassandra Days: Prior Verbal Notification: Recipient Understood Notice: Yes Recipient Signature: Yes Med Rec Note Co-signed by Attending: Coverage Notice Comment: [facility] Reviewer: DEVON Ha Notice Issued Date-Time: 07/05/2019 15:00 Notice Type: IM Discharge Notice Notice Delivered To: Patient Relationship to Patient: Senior Oracle Developer Name: Delivery Method: HAND - Hand Delivered Cassandra Days: Prior Verbal Notification: Recipient Understood Notice: Yes Recipient Signature: Yes Med Rec Note Co-signed by Attending: Coverage Notice Comment: Reviewer: DEVON Ha Notice Issued Date-Time: 07/12/2019 12:40 Notice Type: IM Discharge Notice Notice Delivered To: Patient Relationship to Patient: Senior Oracle Developer Name: Delivery Method: HAND - Hand Delivered Cassandra Days: Prior Verbal Notification: Recipient Understood Notice: Yes Recipient Signature: Yes Med Rec Note Co-signed by Attending: Coverage Notice Comment: Last DP export: 07/12/19 2:28 Patient Name: CHON LUI Page 66487 at 1549 All edits/amendments must be made on the electronic document DICTATION DATE: 07/12/191547 POWER MARKETER: NAHUN 07/12/191547 RPT#: [id number] DC DATE: STATUS: ADM IN [facility] [address] [place] [address] END OF REPORT
--- NOTE | 2019-07-12 15:50 | NUR ---
PEG TUBE FLUSHED WITH 60ML OF H20.
--- NOTE | 2019-07-12 16:36 | NUR ---
PT LEFT VIA WC BY [employer] [facility] NEEDS CHILD CAREGIVER IN [place]. PT HAS ALL BELONGINGS.
== END 2019-07-12 16:44 | DRG 193 ==
LOC: D.ER 16:31 → D.M2 19:03
PROVIDERS: Family Medicine; ADMIT Legal Medicine; ATTEND Legal Medicine
DX: J18.1 Lobar pneumonia, unspecified organism (principal); J96.21 Acute and chronic respiratory failure with hypoxia; J44.1 Chronic obstructive pulmonary disease with (acute) exacerbation; E44.0 Moderate protein-calorie malnutrition; Z68.1 Body mass index [BMI] 19.9 or less, adult; E87.1 Hypo-osmolality and hyponatremia; J44.0 Chronic obstructive pulmonary disease with (acute) lower respiratory infection; K21.9 Gastro-esophageal reflux disease without esophagitis; D64.9 Anemia, unspecified; Z93.0 Tracheostomy status; E03.9 Hypothyroidism, unspecified

== ENCOUNTER 2019-10-04 13:48 | Inpatient (IN) | payer MEDICARE, MEDICAID ==
[~2019-10-04] VITALS: Ht 160 cm; Wt 49.9 kg
--- NOTE | ~2019-10-04 | OP ---
PATIENT NAME: CHON LUI MEDICAL RECORD: [id number] :[birth year] LOCATION:[facility] [place]- ADMISSION DATE:10/06/19 SURGEON: TERRY RITTER MD DATE OF OPERATION: 10/06/2019 PREOPERATIVE DIAGNOSES: 1. Malfunctioning gastrostomy tube. 2. Chemical burn causing a rash around the gastrostomy tube insertion site. 3. Pyogenic granuloma. PROCEDURE: 1. Gastrostomy tube change out. 2. Electrodesiccation and curettage of a pyogenic granuloma in the gastrocutaneous tract. SURGEON: Terry Ritter MD NURSE ANESTHETIST: None. BLOOD LOSS: 25 cc. ANESTHESIA: Sedation. The risks, possible complications, and alternatives to the procedure were explained to the patient. She and her family elects to proceed. I saw her in the outpatient department. The entire examination was performed with the presence of a female nurse. I want to upsize her gastrostomy tube. She has got a pretty impressive rash, which I do not believe is an allergy to the tubing or the flange. The rash extends beyond where the flange would cause an allergic reaction. So I think this is a chemical burn from fluid that is passing out through the gastrocutaneous fistula and then on to the surrounding skin. The patient also has a pyogenic granuloma within the tract. I told them that after removal that undoubtedly is going to grow back. OPERATIVE COURSE: The patient was conveyed to the operating room electively on 10/06/2019. IV sedation was induced by the anesthesia staff. The abdomen was sterilely prepped and draped. I deflated the balloon on the gastrostomy tube and removed in its entirety. I rubbed vigorously with a prep sponge in order to remove any material from the area that was involved with the rash. I performed curettage of the gastrocutaneous fistulous tract and removed the pyogenic granuloma. Hemostasis was achieved with electrocautery. I then advanced a 22-British balloon-type gastrostomy tube into the stomach and inflated it. The balloon was then inflated with 20 cc of water. I then took a mixture of stoma paste and Nystatin powder and mixed it up into a very thick batter. I applied this to the rash. This is essentially what I would call "Nu-Skin." We allowed this to dry. On top of this, I placed an Adaptic and then drain sponges, 4 x 4s. We then pushed down the flange. The patient was then conveyed to the recovery room. Through the gastrostomy tube, I had the radiology therapist instill Gastrografin. A radiograph was obtained that revealed intragastric placement of the gastrostomy tube. My request is going to be that the Adaptic, the drain, sponges, and 4 x 4s can be changed; however, I do not want the Nu-Skin being removed for at least a OPERATIVE REPORT [id number] CHON LUI. The longer it stays in place, the greater the likelihood is that the rash will improve as this will provide a protective barrier where the stomach acid will not burn the surrounding skin. TRANSINT:[id number] Voice Confirmation ID: [id number] DOCUMENT ID: [id number] TERRY RITTER MD CC: [id number] DICTATION DATE: 10/06/191407 REFRIGERATION SERVICE INSPECTOR: 10/06/19 2330 DIS IN 10/06/19 [facility] [address] [place] [address]
[~2019-10-04 13:48] MED LIST changes: +OMNICEF300 MG PO
[2019-10-05] MEDS ORDERED: RESTORIL7.5 MG PO (10:22)
[2019-10-06 07:06] LABS: BASOPHILS 0.3 % (0-2); EOSINOPHILS 2.1 % (0-7); HEMATOCRIT 37.2 % (36.0-48.0); HEMOGLOBIN 11.8 g/dL (12-16); IMMATURE GRANULOCYTES 0.4 % (0-5); LYMPHOCYTES 22.9 % (15-50); MCH 30.6 pg (26.0-34.0); MCHC 31.7 g/dL (31.0-37.0); MCV 96.4 fL (80.0-100.0); MEAN PLATELET VOLUME 8.4 fL (7.4-10.4); NEUTROPHILS 66.3 % (40-80); RBC 3.86 10x6/uL (4.00-5.40); RDW 15.1 % (11.5-14.5); WBC 7.7 10x3/uL (4.8-10.8)
[2019-10-06 07:12] LABS: PLATELET COUNT 217 10x3/uL (130-400)
[2019-10-06 07:13] LABS: ANION GAP 6.1 mmol/L (8-16); CALCIUM 9.3 mg/dL (8.5-10.1); CARBON DIOXIDE 34.3 mmol/L (21.0-32.0); CREATININE - SERUM 0.9 mg/dL (0.6-1.3); POTASSIUM - SERUM 4.4 mmol/L (3.5-5.1)
[2019-10-06 07:15] LABS: APTT 38.1 SECONDS (22.8-39.4); INR 1.05 (0.85-1.17); PROTIME 13.7 SECONDS (11.6-15.0)
[2019-10-06 07:45] VITALS: BP 99/45; Ht 160 cm; Wt 49.9 kg
--- NOTE | 2019-10-06 11:11 | NUR ---
1053 OXYGEN AT 40% VIA HUMIDIFIED TRACH MASK PER Trent GRIFFIN CRNA
--- NOTE | 2019-10-09 16:02 | HP ---
PATIENT: CHON LUI MEDICAL RECORD: [id number] ACCOUNT: [id number] LOCATION:[facility] [place] [place]- : 50 ADMISSION DATE: 10/06/19 PCP: DEEPALI MONTAÑO DO HISTORY AND PHYSICAL EXAMINATION CHIEF COMPLAINT: Malfunctioning gastrostomy tube. HISTORY OF PRESENT ILLNESS: The patient has a leaking gastrostomy tube. I am going to plan to remove the gastrostomy tube and also upsize it. She has a pretty significant rash around the flange of the gastrostomy tube. It extends out beyond the flange and this may represent an allergic reaction or may represent a rash due to soilage from drainage around the gastrostomy tube. There is a pyogenic granulomata. I am going to plan to curettage that and electrodesiccated. I am going to try to apply some Nu-Skin to the area around the gastrostomy tube to hopefully allow the rash to heal up. I saw her in the office on 09/04/2019. PAST MEDICAL AND SURGICAL HISTORY: Yeast infection of the skin, pharyngeal cancer, lung cancer, hypothyroidism, on replacement therapy, hypercholesterolemia, coronary artery disease, pneumonia, malfunctioning gastrostomy tube as described above, history of throat cancer, history of nonsmall cell lung cancer, hypertension. SOCIAL HISTORY: Former smoker, quit in 2007. ALLERGIES: No known drug allergies. MEDICATIONS: Recent medications that I can see that have been filled include Brovana, budesonide nebulized treatments, Carafate, citalopram, antifungal steroid cream, Humulin insulin, levothyroxine, metoprolol. PHYSICAL EXAMINATION: GENERAL: The patient does not appear acutely ill. She does appear chronically ill. VITAL SIGNS: Reviewed. EARS: External ears appear normal. EYES: Extraocular movements are intact. CHEST: No intercostal retractions. PULMONARY: Mildly labored. ABDOMEN: As described above. IMPRESSION: 1. Malfunctioning gastrostomy tube with leakage. 2. Allergic reaction around the gastrostomy tube flange. 3. Pyogenic granuloma. PLAN: As described above. TRANSINT:[id number] Voice Confirmation ID: [id number] DOCUMENT ID: [id number] HISTORY AND PHYSICAL [id number] HURINA BARROS MD at 1602 CC: DEEPALI MONTAÑO DO [id number] DICTATION DATE: 10/06/19 0907 BLOWER AND COMPRESSOR ASSEMBLER: 10/06/19 1033 DIS IN 10/06/19 [facility] [address] [id number]
== END 2019-10-06 14:55 | disposition home or self-care (01) | DRG 395 ==
LOC: D.SDCHOLD 10-06 06:41
PROVIDERS: Anesthesiology; ADMIT Surgery; ATTEND Surgery
PROC: 0H57XZZ Destruction of Abdomen Skin, External Approach (ICD-10-PCS; 2019-10-06)
PROC: 0D20XUZ Change Feeding Device in Upper Intestinal Tract, External Approach (ICD-10-PCS; principal; 2019-10-06 08:30)
DX: K94.23 Gastrostomy malfunction (principal); L98.0 Pyogenic granuloma; T30.4 Corrosion of unspecified body region, unspecified degree; E03.9 Hypothyroidism, unspecified; E78.00 Pure hypercholesterolemia, unspecified; I10 Essential (primary) hypertension; Z85.118 Personal history of other malignant neoplasm of bronchus and lung

== ENCOUNTER 2019-10-11 00:33 | Emergency (ER) | payer MEDICARE ==
[~2019-10-11] VITALS: Ht 160 cm; Wt 52.3 kg
[~2019-10-11 00:33] MED LIST changes: +RESTORIL7.5 MG PO
[2019-10-11 00:35] VITALS: Ht 160 cm; Wt 52.3 kg
[2019-10-11] MEDS ORDERED: HYDROCODON-ACE1 EAC7 PO (00:46)
[2019-10-11 02:29] LABS: BASOPHILS 0.3 % (0-2); EOSINOPHILS 3.3 % (0-7); HEMATOCRIT 35.1 % (36.0-48.0); HEMOGLOBIN 11.2 g/dL (12-16); IMMATURE GRANULOCYTES 0.3 % (0-5); LYMPHOCYTES 24.4 % (15-50); MCH 30.7 pg (26.0-34.0); MCHC 31.9 g/dL (31.0-37.0); MCV 96.2 fL (80.0-100.0); MEAN PLATELET VOLUME 8.4 fL (7.4-10.4); MONOCYTES 8.7 % (2-11); PLATELET COUNT 208 10x3/uL (130-400); RBC 3.65 10x6/uL (4.00-5.40); RDW 14.9 % (11.5-14.5); WBC 7.5 10x3/uL (4.8-10.8)
[2019-10-11 02:41] LABS: CALC OSMOLALITY 274 mosm/kg (275-300); CALCIUM 8.8 mg/dL (8.5-10.1); CARBON DIOXIDE 33.1 mmol/L (21.0-32.0); CHLORIDE - SERUM 100 mmol/L (98-107); CREATININE - SERUM 0.8 mg/dL (0.6-1.3); GLUCOSE 85 mg/dL (74-106); POTASSIUM - SERUM 4.5 mmol/L (3.5-5.1); SODIUM 137 mmol/L (136-145); UREA NITROGEN 18 mg/dL (7-18); eGFR NON AFRICAN AMERICAN 75 mL/min (90-120)
[2019-10-11 02:54] LABS: ALBUMIN 2.9 g/dL (3.4-5.0); ALKALINE PHOSPHATASE 98 U/L (30-120); ALT (SGPT) 25 U/L (10-68); BILIRUBIN - TOTAL 0.28 mg/dL (0.2-1.3); LIPASE 60 U/L (73-393); PRO BNP 291 pg/mL (0-125); PROTEIN - SERUM 7.4 g/dL (6.4-8.2); TROPONIN-I < 0.017 ng/mL (0.000-0.060)
[2019-10-11 03:37] LABS: BILIRUBIN NEGATIVE (NEGATIVE); GLUCOSE NEGATIVE (NEGATIVE); KETONE NEGATIVE (NEGATIVE); NITRITE NEGATIVE (NEGATIVE); SPECIFIC GRAVITY 1.005 (1.005-1.020); UROBILINOGEN NORMAL (NORMAL)
[2019-10-11 05:16] VITALS: BP 97/34
== END 2019-10-11 05:10 ==
LOC: D.ER 00:33
PROVIDERS: Family Medicine
DX: K94.23 Gastrostomy malfunction (principal); E07.9 Disorder of thyroid, unspecified; I10 Essential (primary) hypertension; K21.9 Gastro-esophageal reflux disease without esophagitis

== ENCOUNTER 2019-10-15 08:05 | Emergency (ER) | payer MEDICARE ==
[~2019-10-15] VITALS: Ht 160 cm; Wt 54.5 kg
[2019-10-15 08:07] VITALS: Ht 160 cm; Wt 54.5 kg
[2019-10-15 09:55] VITALS: BP 112/72
== END 2019-10-15 10:00 | disposition home or self-care (01) ==
LOC: D.ER 08:05
DX: K94.23 Gastrostomy malfunction (principal); J44.9 Chronic obstructive pulmonary disease, unspecified; I10 Essential (primary) hypertension; K21.9 Gastro-esophageal reflux disease without esophagitis

== ENCOUNTER 2019-10-19 19:20 | Inpatient (IN) | payer MEDICARE ==
[~2019-10-19] VITALS: Ht 160 cm; Wt 54.4 kg
[2019-10-19 20:29] LABS: BASOPHILS 0.2 % (0-2); EOSINOPHILS 3.1 % (0-7); HEMATOCRIT 35.5 % (36.0-48.0); HEMOGLOBIN 11.4 g/dL (12-16); IMMATURE GRANULOCYTES 0.3 % (0-5); LYMPHOCYTES 22.1 % (15-50); MCH 31.1 pg (26.0-34.0); MCHC 32.1 g/dL (31.0-37.0); MEAN PLATELET VOLUME 8.3 fL (7.4-10.4); MONOCYTES 6.9 % (2-11); NEUTROPHILS 67.4 % (40-80); RBC 3.66 10x6/uL (4.00-5.40); RDW 14.7 % (11.5-14.5)
[2019-10-19 20:30] LABS: PLATELET COUNT 262 10x3/uL (130-400)
[2019-10-19 20:40] LABS: CALC OSMOLALITY 275 mosm/kg (275-300); CALCIUM 9.1 mg/dL (8.5-10.1); CARBON DIOXIDE 32.9 mmol/L (21.0-32.0); CHLORIDE - SERUM 101 mmol/L (98-107); CREATININE - SERUM 0.7 mg/dL (0.6-1.3); GLUCOSE 94 mg/dL (74-106); POTASSIUM - SERUM 4.5 mmol/L (3.5-5.1); SODIUM 137 mmol/L (136-145); UREA NITROGEN 19 mg/dL (7-18); eGFR NON AFRICAN AMERICAN 88 mL/min (90-120)
[2019-10-19 20:48] LABS: ALKALINE PHOSPHATASE 115 U/L (30-120); ALT (SGPT) 16 U/L (10-68); BILIRUBIN - TOTAL 0.18 mg/dL (0.2-1.3); PROTEIN - SERUM 7.7 g/dL (6.4-8.2)
[2019-10-19 21:21] LABS: INR 1.05 (0.85-1.17); PROTIME 13.6 SECONDS (11.6-15.0)
[2019-10-19 21:59] LABS: BILIRUBIN NEGATIVE (NEGATIVE); GLUCOSE NEGATIVE (NEGATIVE); KETONE NEGATIVE (NEGATIVE); NITRITE NEGATIVE (NEGATIVE); SPECIFIC GRAVITY 1.005 (1.005-1.020); UROBILINOGEN NORMAL (NORMAL)
[2019-10-19 22:01] LABS: BACTERIA FEW /hpf (NEGATIVE); RED CELLS - URINE RARE /hpf (0-5); WHITE CELLS - URINE 0-5 /hpf (NEGATIVE)
[2019-10-20] VITALS: BP 113/61
[2019-10-20 00:19] VITALS: BMI 21.3
[2019-10-20 04:00] VITALS: BP 112/48
[2019-10-20 04:48] LABS: BASOPHILS 0.3 % (0-2); EOSINOPHILS 3.1 % (0-7); HEMOGLOBIN 9.7 g/dL (12-16); IMMATURE GRANULOCYTES 0.3 % (0-5); LYMPHOCYTES 28.8 % (15-50); MCH 30.3 pg (26.0-34.0); MCHC 31.3 g/dL (31.0-37.0); MCV 96.9 fL (80.0-100.0); MEAN PLATELET VOLUME 8.7 fL (7.4-10.4); MONOCYTES 6.5 % (2-11); PLATELET COUNT 227 10x3/uL (130-400); RDW 14.7 % (11.5-14.5); WBC 7.8 10x3/uL (4.8-10.8)
[2019-10-20 05:03] LABS: ALBUMIN 2.4 g/dL (3.4-5.0); ALKALINE PHOSPHATASE 85 U/L (30-120); ALT (SGPT) 13 U/L (10-68); BILIRUBIN - TOTAL 0.22 mg/dL (0.2-1.3); CALC OSMOLALITY 275 mosm/kg (275-300); CALCIUM 8.2 mg/dL (8.5-10.1); CARBON DIOXIDE 29.1 mmol/L (21.0-32.0); CHLORIDE - SERUM 105 mmol/L (98-107); CREATININE - SERUM 0.8 mg/dL (0.6-1.3); GLUCOSE 81 mg/dL (74-106); POTASSIUM - SERUM 4.3 mmol/L (3.5-5.1); PROTEIN - SERUM 6.4 g/dL (6.4-8.2); SODIUM 138 mmol/L (136-145); UREA NITROGEN 16 mg/dL (7-18); eGFR NON AFRICAN AMERICAN 75 mL/min (90-120)
[2019-10-20 08:43] VITALS: BP 107/47
--- NOTE | 2019-10-20 09:00 | NUR ---
ASSESSMENT PER FLOW SHEET. PATIENT IS WITHOUT DISTRESS.CALL LIGHT IN REACH
[2019-10-20 12:12] VITALS: BP 99/42
[2019-10-20 12:42] VITALS: BMI 21.2
[2019-10-20 17:03] VITALS: BP 193/83
[2019-10-20 20:26] VITALS: BP 144/44
[2019-10-21] VITALS (7 sets, daily range): BP systolic 89–118; BP diastolic 31–66; Ht 160 cm; Wt 54.4 kg
[2019-10-21 05:36] LABS: BASOPHILS 0.4 % (0-2); HEMATOCRIT 30.1 % (36.0-48.0); HEMOGLOBIN 9.5 g/dL (12-16); IMMATURE GRANULOCYTES 0.2 % (0-5); LYMPHOCYTES 33.9 % (15-50); MCH 30.7 pg (26.0-34.0); MCHC 31.6 g/dL (31.0-37.0); MCV 97.4 fL (80.0-100.0); MEAN PLATELET VOLUME 8.5 fL (7.4-10.4); MONOCYTES 7.7 % (2-11); NEUTROPHILS 52.8 % (40-80); PLATELET COUNT 215 10x3/uL (130-400); RBC 3.09 10x6/uL (4.00-5.40); RDW 14.7 % (11.5-14.5)
[2019-10-21 05:41] LABS: WBC 5.6 10x3/uL (4.8-10.8)
[2019-10-21 05:57] LABS: CALC OSMOLALITY 269 mosm/kg (275-300); CALCIUM 8.5 mg/dL (8.5-10.1); CHLORIDE - SERUM 102 mmol/L (98-107); CREATININE - SERUM 0.8 mg/dL (0.6-1.3); GLUCOSE 78 mg/dL (74-106); POTASSIUM - SERUM 3.8 mmol/L (3.5-5.1); SODIUM 136 mmol/L (136-145); eGFR NON AFRICAN AMERICAN 75 mL/min (90-120)
[2019-10-21 05:59] LABS: UREA NITROGEN 11 mg/dL (7-18)
--- NOTE | 2019-10-21 08:07 | NUR ---
RESTING IN BED, NO DISTRESS NOTED, CONT TO MONITOR INTAKE AND OUTPUT,
--- NOTE | 2019-10-21 12:30 | NUR ---
MEDS GIVEN PER G TUBE, YA WELL, CONT TO MONITOR
--- NOTE | 2019-10-21 19:15 | NUR ---
PATIENT LYING IN BED. NO SIGNS OF ACUTE DISTRESS AT THIS TIME. IV IN RIGHT FA, NS @100, NO SIGNS OF REDNESS OR SWELLING. FAIRCHILD IN PLACE OF PEG TUBE, REDNESS AROUND THE SITE. PATIENT SAYS HER PAIN IS A 7/10 BUT HAS NO OTHER NEEDS AT THIS TIME. BED IN LOW POSITION, RAILS X2. BEDSIDE TABLE AND CALL LIGHTS WITHIN REACH.
[2019-10-22] VITALS: BP 107/54
[2019-10-22 04:00] VITALS: BP 137/74
[2019-10-22 06:43] LABS: BASOPHILS 0.5 % (0-2); EOSINOPHILS 5.7 % (0-7); HEMATOCRIT 31.7 % (36.0-48.0); HEMOGLOBIN 10.1 g/dL (12-16); IMMATURE GRANULOCYTES 0.2 % (0-5); LYMPHOCYTES 30.2 % (15-50); MCH 30.1 pg (26.0-34.0); MCHC 31.9 g/dL (31.0-37.0); MEAN PLATELET VOLUME 8.6 fL (7.4-10.4); MONOCYTES 7.3 % (2-11); NEUTROPHILS 56.1 % (40-80); PLATELET COUNT 243 10x3/uL (130-400); RBC 3.35 10x6/uL (4.00-5.40); RDW 14.3 % (11.5-14.5); WBC 5.5 10x3/uL (4.8-10.8)
[2019-10-22 06:46] LABS: MCV 94.6 fL (80.0-100.0)
[2019-10-22 07:10] LABS: CALC OSMOLALITY 262 mosm/kg (275-300); CALCIUM 8.7 mg/dL (8.5-10.1); CARBON DIOXIDE 24.8 mmol/L (21.0-32.0); CHLORIDE - SERUM 100 mmol/L (98-107); CREATININE - SERUM 0.6 mg/dL (0.6-1.3); POTASSIUM - SERUM 3.7 mmol/L (3.5-5.1); SODIUM 133 mmol/L (136-145); UREA NITROGEN 10 mg/dL (7-18); eGFR NON AFRICAN AMERICAN > 90 mL/min (90-120)
[2019-10-22 07:13] LABS: GLUCOSE 68 mg/dL (74-106)
[2019-10-22 08:38] VITALS: BP 131/67
--- NOTE | 2019-10-22 09:26 | NUR ---
RESTING IN BED, NO DISTRESS NOTED, MEDS GIVEN PER PEG, IV INFUSING, CONT TO MONITOR PAIN AND GI, REMAINS NPO
[2019-10-22 12:33] VITALS: BP 107/46
--- NOTE | 2019-10-22 13:17 | NUR ---
GIVEN 240CC OF JEVITY 1.5, YA WELL FLUSHED WITH WATER, CONT TO MONITOR
[2019-10-22 17:07] VITALS: BP 95/43
--- NOTE | 2019-10-22 19:25 | NUR ---
PATIENT LYING IN BED. NO ACUTE DISTRESS NOTED AT THIS TIME. IV IN RIGHT FOREARM, NS @100, NO REDNESS OR SWELLING TO THE IV SITE. PEG TUBE PLACED IN ABDOMEN. PATIENT HAS TRACH. ENCOURAGED PATIENT TO CALL WITH ANY NEEDS. BED IN LOW POSITION, RAILS X2. BEDSIDE TABLE AND CALL LIGHT WITHIN REACH.
[2019-10-22 19:52] VITALS: BP 138/77
[2019-10-23] VITALS: BP 91/40
[2019-10-23 04:00] VITALS: BP 110/56
--- NOTE | 2019-10-23 08:00 | NUR ---
ASSESSMENT PER FLOW SHEET. PATIENT IS WITHOUT DIASTRESS.CALL LIGHT IN REACH
[2019-10-23 08:56] VITALS: BP 99/51
--- NOTE | 2019-10-23 13:07 | MORECARE ---
CASE MANAGEMENT DISCHARGE SUMMARY PATIENT: CHON LUI UNIT: [id number] ADM DATE: 10/20/19 AGE: 69 : 50 SEX: F ROOM/BED: D.2215 AUTHOR: MONETDOC PHYSICIAN: REFERRING PHYSICIAN: CHERELLE NAVARRETE MD DATE OF SERVICE: 10/23/19 Discharge Plan Patient Name: CHON LUI Facility: [facility]:[place] : 1950 Planned Disposition: Custodial Facility Anticipated Discharge Date: Discharge Date: Expected LOS: Initial Reviewer: [email or web address] Initial Review Date: 10/19/2019 Generated: 10/23/19 2:07 pm Comments DCP- Discharge Planning Updated by [email or web address]: Magaly Duran on 10/23/19 12:[address] Patient Name: CHON LUI Admission Status: ER Accout number: [id number] Admission Date: 10-20-2019 : 1950 Admission Diagnosis: Attending: CHERELLE NAVARRETE Current LOS: 3 Anticipated DC Date: Planned Disposition: Custodial Facility Primary Insurance: MEDICARE A & B Discharge Planning Comments: CM met with patient to complete initial dc planning assessment. CM educated patient on the CM role and verbal consent given by patient to complete assessment. Patient lives at home with her daughter, but was currently at [facility] for [facility]. At discharge patient plans to return back to [facility] and feels this is a safe discharge. CM discussed availability of home health, rehab services, and medical equipment. She said at home she has feeding supplies, trach and suction supplies, home o2, concentrator, nebulizer, walker, WC, BSC. She get her supplies from [address] for [facility] and an IMM served and explained. Patient denied known discharge needs at this time. CM will continue to follow and will assist as needed with dc plans/needs. Bottom Steep Tender: Maglay Duran DCPIA - Discharge Planning Initial Assessment Updated by [email or web address]: Magaly Duran on 10/23/19 1:03 pm * Is the patient Alert and Oriented? Yes * PCP ROSALBA * Pharmacy [facility] * Preadmission Environment Custodial Facility * Facility Name [facility] * ADLs Partial Dependent * Partial ADLs (Assistance needed) Medication Management * Equipment Bedside Commode Enteral Feeding and Supplies Nebulizer Other Oxygen Rolling Walker Suction and Supplies Trach Care Supplies Walker Wheelchair * List name and contact numbers for known caregivers / representatives who currently or will assist patient after discharge: DEBORAH BLUE (DAUGHTER) [phone] * Verbal permission to speak to the caregivers and representatives has been obtained from the patient. N/A * Community resources currently utilized None * Additional services required to return to the preadmission environment? No * Can the patient safely return to the preadmission environment? Yes * Has this patient been hospitalized within the prior 30 days at any hospital? No Patient Name: CHON LUI Page [phone] at 1307 All edits/amendments must be made on the electronic document DICTATION DATE: 10/23/19 1307 CADD INSTRUCTOR: NAHUN 10/23/19 1307 RPT#: [id number] DC DATE: STATUS: ADM IN [facility] [address] [place] [address] END OF REPORT
[2019-10-23 13:24] VITALS: BP 112/74
[2019-10-23 17:28] VITALS: BP 117/49
[2019-10-23 20:00] VITALS: BP 153/69
[2019-10-24] VITALS: BP 117/56
[2019-10-24 04:00] VITALS: BP 118/63
--- NOTE | 2019-10-24 04:12 | NUR ---
PATIENT RESTING IN BED. NO SIGNS OF ACUTE DISTRESS NOTED AT THIS TIME. PATIENT REQUESTS PAIN MEDS FOR 02/22 PAIN. BED IN LOW POSITION, RAILS X2. BEDSIDE TABLE AND CALL LIGHT WITHIN REACH.
[2019-10-24] MEDS ORDERED: DOXYCYCLINE HY100 M2 PO (07:24)
--- NOTE | 2019-10-24 07:43 | NUR ---
ALERT AND ORIENTED. LUNGS DIMINISHED BILATERALLY. HEART SOUNDS S1 AD S2 HEARD IN ALL PRUITT. BOWEL SOUNDS ACTIVE X 4. PEG TUBE PATENT WITH JEVITY 1.5 INFUSING AT 40ML/HR. TRACH NOTED. IV TO RFA PATENT WITHOUT REDNESS. DENIES NEEDS. BED LOW. FALL PRECAUTIONS IN PLACE. CALL COBB AND PERSONAL ITEMS IN REACH. WILL CONTINUE TO MONITOR.
[2019-10-24 10:07] VITALS: BP 152/61
--- NOTE | 2019-10-24 10:37 | MORECARE ---
CASE MANAGEMENT DISCHARGE SUMMARY PATIENT: CHON LUI UNIT: [id number] ADM DATE: 10/20/19 AGE: 69 : 50 SEX: F ROOM/BED: D.2215 AUTHOR: MONETDOC PHYSICIAN: REFERRING PHYSICIAN: CHERELLE NAVARRETE MD DATE OF SERVICE: 10/24/19 Discharge Plan Patient Name: CHON LUI Facility: [facility]:[place] : 1950 Planned Disposition: Alf Facility Anticipated Discharge Date: Discharge Date: Expected LOS: Initial Reviewer: [email or web address] Initial Review Date: 10/19/2019 Generated: 10/24/19 11:37 am Comments DCP- Discharge Planning Updated by [email or web address]: Magaly Duran on 10/23/19 12:[address] Patient Name: CHON LUI Admission Status: ER Accout number: [id number] Admission Date: 10-20-2019 : 1950 Admission Diagnosis: Attending: CHERELLE NAVARRETE Current LOS: 3 Anticipated DC Date: Planned Disposition: Alf Facility Primary Insurance: MEDICARE A & B Discharge Planning Comments: CM met with patient to complete initial dc planning assessment. CM educated patient on the CM role and verbal consent given by patient to complete assessment. Patient lives at home with her daughter, but was currently at [facility] [place]. At discharge patient plans to return back to [facility] and feels this is a safe discharge. CM discussed availability of home health, rehab services, and medical equipment. She said at home she has feeding supplies, trach and suction supplies, home o2, concentrator, nebulizer, walker, WC, BSC. She get her supplies from [address] for [facility] and an IMM served and explained. Patient denied known discharge needs at this time. CM will continue to follow and will assist as needed with dc plans/needs. Fusing Furnace Loader: Magaly Duran DCPIA - Discharge Planning Initial Assessment Updated by [email or web address]: Magaly Duran on 10/23/19 1:03 pm * Is the patient Alert and Oriented? Yes * PCP ROSALBA * Pharmacy [facility] * Preadmission Environment Alf Facility * Facility Name [facility] * ADLs Partial Dependent * Partial ADLs (Assistance needed) Medication Management * Equipment Bedside Commode Enteral Feeding and Supplies Nebulizer Other Oxygen Rolling Walker Suction and Supplies Trach Care Supplies Walker Wheelchair * List name and contact numbers for known caregivers / representatives who currently or will assist patient after discharge: DEBORAH BLUE (DAUGHTER) [phone] * Verbal permission to speak to the caregivers and representatives has been obtained from the patient. N/A * Community resources currently utilized None * Additional services required to return to the preadmission environment? No * Can the patient safely return to the preadmission environment? Yes * Has this patient been hospitalized within the prior 30 days at any hospital? No External Providers External Provider: [facility] Next Contact Date: Service Request Date: Service Type: Resolution: Reviewer: Comments: Coverage Notice Reviewer: [email or web address] Holly Duran Notice Issued Date-Time: 10/23/2019 12:55 Notice Type: IM Discharge Notice Notice Delivered To: Patient Relationship to Patient: Electron Gun Assembler Name: Delivery Method: HAND - Hand Delivered Cassandra Days: Prior Verbal Notification: Recipient Understood Notice: Yes Recipient Signature: Yes Med Rec Note Co-signed by Attending: Coverage Notice Comment: Reviewer: [id number] Holly Duran Notice Issued Date-Time: 10/23/2019 12:55 Notice Type: Patient Choice Letter Notice Delivered To: Patient Relationship to Patient: Electron Gun Assembler Name: Delivery Method: HAND - Hand Delivered Cassandra Days: Prior Verbal Notification: Recipient Understood Notice: Yes Recipient Signature: Yes Med Rec Note Co-signed by Attending: Coverage Notice Comment: [facility] Last DP export: 10/23/19 12:07 pm Patient Name: CHON LUI Page [phone] at 1037 All edits/amendments must be made on the electronic document DICTATION DATE: 10/24/19 1037 SALES ROUTE DRIVER HELPER: NAHUN 10/24/19 1037 RPT#: [id number] DC DATE: STATUS: ADM IN [facility] [address] [place] [address] END OF REPORT
--- NOTE | 2019-10-24 11:23 | NUR ---
DISCHARGE EDUCATION PROVIDED BOTH WRITTEN AND VERBAL. VERBALIZED UNDERSTANDING. DENIES FURTHER QUESTIONS. IV REMOVED FROM RFA WITH TIP INTACT. WAITING VAN TO TAKE PATIENT BACK TO [facility]. REPORT CALLED TO NURSE AT [facility]. DENIES QUESTIONS.
--- NOTE | 2019-10-24 11:42 | MORECARE ---
CASE MANAGEMENT DISCHARGE SUMMARY PATIENT: CHON LUI UNIT: [id number] ADM DATE: 10/20/19 AGE: 69 : 50 SEX: F ROOM/BED: D.2215 AUTHOR: MONETDOC PHYSICIAN: REFERRING PHYSICIAN: CHERELLE NAVARRETE MD DATE OF SERVICE: 10/24/19 Discharge Plan Patient Name: CHON LUI Facility: [facility]:[place] : 1950 Planned Disposition: Assisted Facility Anticipated Discharge Date: Discharge Date: Expected LOS: Initial Reviewer: [email or web address] Initial Review Date: 10/19/2019 Generated: 10/24/19 12:41 pm Comments DCP- Discharge Planning Updated by [email or web address]: Magaly Duran on 10/24/19 10:[address] Patient will be discharging back to [facility] today, they will be picking her up. She will be going to a skilled bed. I called patients daughter Deborah to let her know about discharge. She asked to speak to Dr Castillo about the peg tube & that has not happened yet. I told her I would ask Dr Castillo to give her a call, but I could not promise that would happen, but I would ask. CM will continue to follow and assist as needed. DCP- Discharge Planning Updated by [email or web address]: Magaly Duran on 10/23/19 12:[address] Patient Name: CHON LUI Admission Status: ER Accout number: [id number] Admission Date: 10-20-2019 : 1950 Admission Diagnosis: Attending: CHERELLE NAVARRETE Current LOS: 3 Anticipated DC Date: Planned Disposition: Assisted Facility Primary Insurance: MEDICARE A & B Discharge Planning Comments: CM met with patient to complete initial dc planning assessment. CM educated patient on the CM role and verbal consent given by patient to complete assessment. Patient lives at home with her daughter, but was currently at [facility] for senior living. At discharge patient plans to return back to [facility] and feels this is a safe discharge. CM discussed availability of home health, rehab services, and medical equipment. She said at home she has feeding supplies, trach and suction supplies, home o2, concentrator, nebulizer, walker, WC, BSC. She get her supplies from [place] [address]. [place] for [facility] and an IMM served and explained. Patient denied known discharge needs at this time. CM will continue to follow and will assist as needed with dc plans/needs. Grocery Checker: Magaly Duran DCPIA - Discharge Planning Initial Assessment Updated by [email or web address]: Magaly Duran on 10/23/19 1:03 pm * Is the patient Alert and Oriented? Yes * PCP ROSALBA * Pharmacy [facility] * Preadmission Environment Assisted Facility * Facility Name [facility] * ADLs Partial Dependent * Partial ADLs (Assistance needed) Medication Management * Equipment Bedside Commode Enteral Feeding and Supplies Nebulizer Other Oxygen Rolling Walker Suction and Supplies Trach Care Supplies Walker Wheelchair * List name and contact numbers for known caregivers / representatives who currently or will assist patient after discharge: DEBORAH BLUE (DAUGHTER) [phone] * Verbal permission to speak to the caregivers and representatives has been obtained from the patient. N/A * Community resources currently utilized None * Additional services required to return to the preadmission environment? No * Can the patient safely return to the preadmission environment? Yes * Has this patient been hospitalized within the prior 30 days at any hospital? No Coverage Notice Reviewer: [id number] Holly Duran Notice Issued Date-Time: 10/23/2019 12:55 Notice Type: IM Discharge Notice Notice Delivered To: Patient Relationship to Patient: Endoscopy Support Specialist Name: Delivery Method: HAND - Hand Delivered Cassnadra Days: Prior Verbal Notification: Recipient Understood Notice: Yes Recipient Signature: Yes Med Rec Note Co-signed by Attending: Coverage Notice Comment: Reviewer: [email or web address] Holly Duran Notice Issued Date-Time: 10/23/2019 12:55 Notice Type: Patient Choice Letter Notice Delivered To: Patient Relationship to Patient: Endoscopy Support Specialist Name: Delivery Method: HAND - Hand Delivered Cassandra Days: Prior Verbal Notification: Recipient Understood Notice: Yes Recipient Signature: Yes Med Rec Note Co-signed by Attending: Coverage Notice Comment: [facility] Last DP export: 10/24/19 9:37 a Patient Name: CHON LUI Page [phone] at 1142 All edits/amendments must be made on the electronic document DICTATION DATE: 10/24/19 1141 TROUBLE SHOOTING MECHANIC: NAHUN 10/24/19 1141 RPT#: [id number] DC DATE: STATUS: ADM IN [facility] [address] [place] [address] END OF REPORT
== END 2019-10-24 14:13 | DRG 393 ==
LOC: D.ER 19:20 → D.MS 22:16 → OBSVTIME 22:16 → D.MS 10-20 16:19
PROVIDERS: Family Medicine; ADMIT Legal Medicine; ATTEND Legal Medicine
DX: K94.29 Other complications of gastrostomy (principal); J18.9 Pneumonia, unspecified organism; J96.11 Chronic respiratory failure with hypoxia; L03.90 Cellulitis, unspecified; R13.10 Dysphagia, unspecified; D64.9 Anemia, unspecified; I10 Essential (primary) hypertension; K21.9 Gastro-esophageal reflux disease without esophagitis

== ENCOUNTER 2019-12-10 04:23 | Inpatient (IN) | payer MEDICARE ==
[~2019-12-10] VITALS: Ht 160 cm; Wt 37.6 kg
[~2019-12-10 04:23] MED LIST changes: +DOXYCYCLINE HY100 M2 PO
--- NOTE | 2019-12-10 04:40 | NUR ---
RT AT BEDSIDE FOR TRACH CARE/SUCTION. PT BEING BAGGED VIA TRACH TOLERATED WELL
[2019-12-10 04:45] LABS: BASOPHILS 0.1 % (0-2); EOSINOPHILS 1.2 % (0-7); HEMATOCRIT 36.2 % (36.0-48.0); HEMOGLOBIN 11.2 g/dL (12-16); IMMATURE GRANULOCYTES 0.4 % (0-5); LYMPHOCYTES 8.9 % (15-50); MCH 29.8 pg (26.0-34.0); MCHC 30.9 g/dL (31.0-37.0); MCV 96.3 fL (80.0-100.0); MONOCYTES 13.5 % (2-11); NEUTROPHILS 75.9 % (40-80); PLATELET COUNT 235 10x3/uL (130-400); RBC 3.76 10x6/uL (4.00-5.40); RDW 13.9 % (11.5-14.5); WBC 7.6 10x3/uL (4.8-10.8)
[2019-12-10 04:56] LABS: INR 1.04 (0.85-1.17); PROTIME 13.6 SECONDS (11.6-15.0)
[2019-12-10 04:57] LABS: APTT 37.9 SECONDS (22.8-39.4)
--- NOTE | 2019-12-10 04:57 | NUR ---
RT AT BEDSIDE FOR SPUTUM COLLECTION
--- NOTE | 2019-12-10 04:58 | NUR ---
PT TRACH CAPPED VIA RESP AND PLACED ON 6 L NC AT THIS TIME PT TOLERATING WELL
[2019-12-10 05:11] LABS: CKMB 0.7 U/L (0.0-3.6); CREATINE KINASE 44 UL (21-215); PRO BNP 681 pg/mL (0-125); TROPONIN-I 0.041 ng/mL (0.000-0.060)
[2019-12-10 05:38] LABS: ALBUMIN 2.7 g/dL (3.4-5.0); ALKALINE PHOSPHATASE 116 U/L (30-120); ALT (SGPT) 16 U/L (10-68); BILIRUBIN - TOTAL 0.25 mg/dL (0.2-1.3); CALC OSMOLALITY 268 mosm/kg (275-300); CALCIUM 8.8 mg/dL (8.5-10.1); CHLORIDE - SERUM 96 mmol/L (98-107); CREATININE - SERUM 0.7 mg/dL (0.6-1.3); POTASSIUM - SERUM 4.5 mmol/L (3.5-5.1); PROTEIN - SERUM 7.8 g/dL (6.4-8.2); SODIUM 131 mmol/L (136-145); UREA NITROGEN 23 mg/dL (7-18); eGFR NON AFRICAN AMERICAN 88 mL/min (90-120)
[2019-12-10 05:45] LABS: GLUCOSE 138 mg/dL (74-106)
--- NOTE | 2019-12-10 06:26 | NUR ---
PT UA SENT TO LAB. REDNESS NOTED TO PT BUTTOCKS PT DEPENDS LEFT OFF AND ABSORBANT PAD PLACED. PT STATES THAT SHE CAN LET US KNOW IF SHE NEEDS TO URINATE.
[2019-12-10 10:34] VITALS: BP 85/41; BMI 14.7
[2019-12-10] MEDS ORDERED: BROVANA15 MCG/2 M INH (11:01)
[2019-12-10] MEDS ORDERED: OMNICEF250 MG/5 M PO (11:02)
[2019-12-10] MEDS ORDERED: SCOT-TUSSI10 MG/5 ML PEG (11:06)
[2019-12-10] MEDS ORDERED: MYLANTA / MAALO30 ML PEG (11:06)
[2019-12-10] MEDS ORDERED: PROMOD LIQUID P30 M1 PO (11:11)
[2019-12-10 12:51] VITALS: BMI 14.7
[2019-12-10 13:13] VITALS: Ht 160 cm; Wt 37.6 kg
[2019-12-10 13:13] LABS: T4 THYROXIN - FREE 0.91 ng/dL (0.76-1.46); THYROID STIMULATING HORMONE 3.73 uIU/mL (0.36-3.74)
[2019-12-10 13:49] VITALS: BP 92/47
[2019-12-10 14:02] LABS: BILIRUBIN NEGATIVE (NEGATIVE); GLUCOSE NEGATIVE (NEGATIVE); KETONE NEGATIVE (NEGATIVE); NITRITE NEGATIVE (NEGATIVE); SPECIFIC GRAVITY 1.005 (1.005-1.020); UROBILINOGEN NORMAL (NORMAL)
[2019-12-10 14:04] LABS: BACTERIA FEW /hpf (NEGATIVE); EPITHELIAL CELLS 0-5 /hpf (0-5); RED CELLS - URINE 0-5 /hpf (0-5); WHITE CELLS - URINE 0-5 /hpf (NEGATIVE)
[2019-12-10 16:00] VITALS: BP 90/43
--- NOTE | 2019-12-10 19:00 | NUR ---
PATIENT ALERT AND ORIENTED. PATIENT HAS TRACHESOTOMY WITH VENTILATION ATTACHED AT 40%. PATIENT HAS PEG TUBE AT ABDOMEN. NO RESIDUAL WHEN ASSESSED AND FLUSHES EASILY. TUBE FEEDS ORDERED. PATIENT HAS LEFT HAND IV 20G THAT IS SALINE LOCKED. AND 20G LEFT AC IV. PATIENT HAS REDNESS TO BOTTOM. EDUCATED ON FREUQENT REPOSITIONING. PATIENT VERBALIZES UNDERSTANDING. PATIENT HAS REDNESS TO RIGHT SIDED PERINEAL AREA. PATIENT USES BED GR WHEN THIS NURSE IS IN ROOM ASSESSING. DENIES PAIN AT THIS TIME. CALL LIGHT CLOSE TO PATIENT. HOSPITAL PHONE CLOSE TO PATIENT. CELL PHONE CLOSE TO PATIENT. CPOC.
[2019-12-10 20:00] VITALS: BP 100/54
--- NOTE | 2019-12-10 21:00 | NUR ---
SUCTIONED PATIENT PER REQUEST. RECEIVED THICK GREEN SPUTUM DURING SUCTIONING. PATIENT TOLERATED WELL. REAPPLIED OXYGENATION. DENIES FURTHER NEEDS AT THIS TIME. CPOC.
--- NOTE | 2019-12-11 01:57 | NUR ---
RESTING WITH NO SIGNS OR SYMPTOMS OF DISTRESS AT THIS TIME. CALL LIGHT CLOSE TO PATIENT.
[2019-12-11 04:30] VITALS: BP 88/41
[2019-12-11 04:34] LABS: BASOPHILS 0.2 % (0-2); EOSINOPHILS 2.3 % (0-7); HEMATOCRIT 33.3 % (36.0-48.0); HEMOGLOBIN 10.3 g/dL (12-16); IMMATURE GRANULOCYTES 0.2 % (0-5); LYMPHOCYTES 35.8 % (15-50); MCH 29.6 pg (26.0-34.0); MCHC 30.9 g/dL (31.0-37.0); MCV 95.7 fL (80.0-100.0); MONOCYTES 11.2 % (2-11); NEUTROPHILS 50.3 % (40-80); PLATELET COUNT 222 10x3/uL (130-400); RBC 3.48 10x6/uL (4.00-5.40); RDW 13.8 % (11.5-14.5)
[2019-12-11 04:44] LABS: CALC OSMOLALITY 275 mosm/kg (275-300); CALCIUM 8.6 mg/dL (8.5-10.1); CARBON DIOXIDE 28.1 mmol/L (21.0-32.0); CHLORIDE - SERUM 102 mmol/L (98-107); CREATININE - SERUM 0.7 mg/dL (0.6-1.3); GLUCOSE 95 mg/dL (74-106); POTASSIUM - SERUM 4.2 mmol/L (3.5-5.1); SODIUM 137 mmol/L (136-145); UREA NITROGEN 18 mg/dL (7-18); eGFR NON AFRICAN AMERICAN 88 mL/min (90-120)
[2019-12-11 04:47] LABS: WBC 4.8 10x3/uL (4.8-10.8)
[2019-12-11 07:53] VITALS: BP 92/44
--- NOTE | 2019-12-11 09:26 | NUR ---
SHE IS ALERT, TAKING. TRACH COLLAR ON 40%, PEG TUBE WITH FEEDING, TOLERATING THE GOAL RATE OF 50. DENIES ANY NEEDS, COUGHING WITH PRODUCTIVE SPUTUM.
[2019-12-11 12:35] VITALS: BP 97/44
--- NOTE | 2019-12-11 16:37 | NUR ---
new bag of tube feeding changed, peg tube site dressing changed. the peg tube site is red around.
[2019-12-11 17:13] VITALS: BP 97/53
[2019-12-11 20:05] VITALS: BP 99/44
[2019-12-12] VITALS: BP 87/50
--- NOTE | 2019-12-12 00:09 | NUR ---
REC'D WALKING ROUNDS CHGE OF SHIFT STATES I'VE BEEN TRYING TO GET HELP ON BED GR FOR 45MIN ASSISTED TO BEDPAN REQUESTES.NO RESULTS REPOSITIONED IN BED.HOB UP SEMI-SITTING POSITION.TRACH COLLAR INTACT AT 40%JEVITY FEEDING INFUSING VIA PEG AT 50ML/HR YA WELL DENIES NAUSEA.REMAINS NPO PREVIOUSLY ORDERED.WILL CONTINUE TO MONITOR FOR ANY CHGES IN CURRENT CONDITION AND FOLLOW CURRENT PLAN OF CARE. BED ARMED FOR SAFETY
[2019-12-12 04:00] VITALS: BP 92/48
[2019-12-12 05:31] LABS: BASOPHILS 0.2 % (0-2); EOSINOPHILS 2.5 % (0-7); HEMATOCRIT 33.1 % (36.0-48.0); HEMOGLOBIN 10.3 g/dL (12-16); IMMATURE GRANULOCYTES 0.4 % (0-5); LYMPHOCYTES 25.8 % (15-50); MCH 29.6 pg (26.0-34.0); MCHC 31.1 g/dL (31.0-37.0); MCV 95.1 fL (80.0-100.0); MEAN PLATELET VOLUME 8.9 fL (7.4-10.4); MONOCYTES 11.5 % (2-11); NEUTROPHILS 59.6 % (40-80); PLATELET COUNT 256 10x3/uL (130-400); RBC 3.48 10x6/uL (4.00-5.40); RDW 13.7 % (11.5-14.5); WBC 5.2 10x3/uL (4.8-10.8)
[2019-12-12 06:03] LABS: CALC OSMOLALITY 277 mosm/kg (275-300); CALCIUM 8.2 mg/dL (8.5-10.1); CARBON DIOXIDE 24.6 mmol/L (21.0-32.0); CHLORIDE - SERUM 104 mmol/L (98-107); GLUCOSE 122 mg/dL (74-106); POTASSIUM - SERUM 3.8 mmol/L (3.5-5.1); SODIUM 138 mmol/L (136-145); UREA NITROGEN 16 mg/dL (7-18)
[2019-12-12 06:07] LABS: CREATININE - SERUM 0.5 mg/dL (0.6-1.3); eGFR NON AFRICAN AMERICAN > 90 mL/min (90-120)
--- NOTE | 2019-12-12 07:44 | NUR ---
SHE IS GETTING CLEANED UP, PEG TUBE SITE IS RED. TOLERATING THE TUBE FEEDING. 40 % ON TRACH COLLAR SIZE 6. PRN GIVEN FOR PAIN.
[2019-12-12 08:48] VITALS: BP 129/59
[2019-12-12 12:59] VITALS: BP 89/46
[2019-12-12 16:38] VITALS: BP 132/47
[2019-12-12 20:00] VITALS: BP 115/46
--- NOTE | 2019-12-13 04:20 | NUR ---
I have reviewed this patient and I concur with the Shift Assessment completed by the Licensed Practical Nurse today this shift.
--- NOTE | 2019-12-13 04:22 | NUR ---
I have reviewed this patient and I concur with the Shift Assessment completed by the Licensed Practical Nurse today this shift.
[2019-12-13 05:40] LABS: BASOPHILS 0.4 % (0-2); HEMATOCRIT 33.4 % (36.0-48.0); HEMOGLOBIN 10.2 g/dL (12-16); IMMATURE GRANULOCYTES 0.4 % (0-5); LYMPHOCYTES 28.8 % (15-50); MCH 29.1 pg (26.0-34.0); MCHC 30.5 g/dL (31.0-37.0); MCV 95.2 fL (80.0-100.0); MEAN PLATELET VOLUME 8.9 fL (7.4-10.4); MONOCYTES 8.2 % (2-11); NEUTROPHILS 59.2 % (40-80); PLATELET COUNT 253 10x3/uL (130-400); RBC 3.51 10x6/uL (4.00-5.40); RDW 13.7 % (11.5-14.5); WBC 5.4 10x3/uL (4.8-10.8)
[2019-12-13 05:51] LABS: CALCIUM 8.6 mg/dL (8.5-10.1); CARBON DIOXIDE 26.4 mmol/L (21.0-32.0); CHLORIDE - SERUM 104 mmol/L (98-107); GLUCOSE 89 mg/dL (74-106); POTASSIUM - SERUM 4.1 mmol/L (3.5-5.1); SODIUM 138 mmol/L (136-145); eGFR NON AFRICAN AMERICAN 88 mL/min (90-120)
[2019-12-13 06:10] LABS: CALC OSMOLALITY 273 mosm/kg (275-300); CREATININE - SERUM 0.7 mg/dL (0.6-1.3); UREA NITROGEN 11 mg/dL (7-18)
--- NOTE | 2019-12-13 08:00 | NUR ---
ASSESSMENT PER FLOW SHEET. PATIENT IS WITHOUT DISTRESS.ISOLATION MAINTAINED.
[2019-12-13 08:54] VITALS: BP 138/62
--- NOTE | 2019-12-13 13:33 | NUR ---
Nutrition follow-up: Pt NPO; speech evaluating for swallow Trach PEG tube with Jevity 1.5 mary infusing @ 50 ml/hr Labs reviewed Wt: 82# ?? Please reweigh. RDN following.
[2019-12-13 13:48] VITALS: BP 137/58
[2019-12-13 17:28] VITALS: BP 107/46
[2019-12-13 20:00] VITALS: BP 118/52
[2019-12-14 04:00] VITALS: BP 90/42
[2019-12-14 05:42] LABS: BASOPHILS 0.4 % (0-2); EOSINOPHILS 2.9 % (0-7); HEMOGLOBIN 10.3 g/dL (12-16); IMMATURE GRANULOCYTES 0.7 % (0-5); LYMPHOCYTES 28.5 % (15-50); MCH 29.1 pg (26.0-34.0); MCHC 30.3 g/dL (31.0-37.0); MEAN PLATELET VOLUME 8.7 fL (7.4-10.4); MONOCYTES 10.3 % (2-11); NEUTROPHILS 57.2 % (40-80); PLATELET COUNT 264 10x3/uL (130-400); RBC 3.54 10x6/uL (4.00-5.40); RDW 13.4 % (11.5-14.5); WBC 5.6 10x3/uL (4.8-10.8)
[2019-12-14 05:47] LABS: CALC OSMOLALITY 271 mosm/kg (275-300); CALCIUM 8.7 mg/dL (8.5-10.1); CHLORIDE - SERUM 103 mmol/L (98-107); CREATININE - SERUM 0.7 mg/dL (0.6-1.3); GLUCOSE 82 mg/dL (74-106); SODIUM 137 mmol/L (136-145); UREA NITROGEN 9 mg/dL (7-18); eGFR NON AFRICAN AMERICAN 88 mL/min (90-120)
[2019-12-14 09:31] VITALS: BP 129/70
[2019-12-14 13:29] VITALS: BP 120/48
[2019-12-14 17:50] VITALS: BP 128/73
[2019-12-14 20:00] VITALS: BP 93/59
--- NOTE | 2019-12-14 20:00 | NUR ---
ALERT RESTING IN BED, DENIES PAIN OR NEEDS AT THSI TIME, SEE SHIFT ASSESSMENT, CALL LIGHT IN REACH
[2019-12-15] VITALS: BP 101/51
[2019-12-15 04:00] VITALS: BP 101/42
[2019-12-15 05:27] LABS: BASOPHILS 0.4 % (0-2); EOSINOPHILS 5.8 % (0-7); HEMATOCRIT 34.7 % (36.0-48.0); HEMOGLOBIN 10.6 g/dL (12-16); IMMATURE GRANULOCYTES 0.8 % (0-5); LYMPHOCYTES 28.3 % (15-50); MCH 29.1 pg (26.0-34.0); MCHC 30.5 g/dL (31.0-37.0); MCV 95.3 fL (80.0-100.0); MEAN PLATELET VOLUME 8.5 fL (7.4-10.4); MONOCYTES 8.4 % (2-11); NEUTROPHILS 56.3 % (40-80); PLATELET COUNT 258 10x3/uL (130-400); RBC 3.64 10x6/uL (4.00-5.40); RDW 13.3 % (11.5-14.5); WBC 5.3 10x3/uL (4.8-10.8)
[2019-12-15 06:09] LABS: CALC OSMOLALITY 271 mosm/kg (275-300); CALCIUM 8.2 mg/dL (8.5-10.1); CARBON DIOXIDE 26.6 mmol/L (21.0-32.0); CHLORIDE - SERUM 102 mmol/L (98-107); CREATININE - SERUM 0.6 mg/dL (0.6-1.3); GLUCOSE 75 mg/dL (74-106); POTASSIUM - SERUM 3.9 mmol/L (3.5-5.1); SODIUM 137 mmol/L (136-145); UREA NITROGEN 11 mg/dL (7-18); eGFR NON AFRICAN AMERICAN > 90 mL/min (90-120)
--- NOTE | 2019-12-15 09:10 | MORECARE ---
CASE MANAGEMENT DISCHARGE SUMMARY PATIENT: CHON LUI UNIT: [id number] ADM DATE: 12/10/19 AGE: 69 : 50 SEX: F ROOM/BED: D.[facility] AUTHOR: NATALIA HEALY PHYSICIAN: REFERRING PHYSICIAN: MARY KAY SARKAR MD DATE OF SERVICE: 12/15/19 Discharge Plan Patient Name: CHON LUI Facility: [facility]:[place] : 1950 Planned Disposition: Nursing Home Facility Anticipated Discharge Date: Discharge Date: Expected LOS: Initial Reviewer: [email or web address] Initial Review Date: 12/10/2019 Generated: 12/15/19 10:10 am DCPIA - Discharge Planning Initial Assessment Updated by [id number]: Magaly Duran on 12/15/19 9:09 am * PCP ROSALBA * Pharmacy [facility] * Preadmission Environment Nursing Home Facility * Facility Name [facility] * ADLs Partial Dependent * Partial ADLs (Assistance needed) Bathing Medication Management * Equipment Bedside Commode Enteral Feeding and Supplies Nebulizer Other Oxygen Rolling Walker Suction and Supplies Trach Care Supplies Walker Wheelchair * List name and contact numbers for known caregivers / representatives who currently or will assist patient after discharge: DEBORAH MIRZA [phone] * Additional services required to return to the preadmission environment? Yes * Can the patient safely return to the preadmission environment? Yes * Has this patient been hospitalized within the prior 30 days at any hospital? No Patient Name: CHON LUI Page [phone] at 0910 All edits/amendments must be made on the electronic document DICTATION DATE: 12/15/19909 COMPUTER ENGINEERING TECHNICIAN: NAHUN 12/15/19909 RPT#: [id number] DC DATE: STATUS: ADM IN [facility] [address] [place] [address] END OF REPORT
--- NOTE | 2019-12-15 09:17 | MORECARE ---
CASE MANAGEMENT DISCHARGE SUMMARY PATIENT: CHON LUI UNIT: [id number] ADM DATE: 12/10/19 AGE: 69 : 50 SEX: F ROOM/BED: D.2227 AUTHOR: NATALIA HEALY PHYSICIAN: REFERRING PHYSICIAN: MARY KAY SARKAR MD DATE OF SERVICE: 12/15/19 Discharge Plan Patient Name: CHON LUI Facility: [facility]:[place] : 1950 Planned Disposition: Detention Facility Anticipated Discharge Date: Discharge Date: Expected LOS: Initial Reviewer: [email or web address] Initial Review Date: 12/10/2019 Generated: 12/15/19 10:16 am Comments DCP- Discharge Planning Updated by [email or web address]: Magaly Duran on 12/15/19 8:[address] PATIENT WAS ADMITTED FROM [facility] IN A SKILLED BED, PRIOR TO [facility] SHE LIVED WITH HER DAUGHTER DEBORAH. PATIENT HAS A TRACH AND PEG TUBE HER DME INCLUDES: WALKER, WC, NEB, TRACH SUPPLIES, SUCTION SUPPLIES, TUBE FEEDINGS, O2, NEB. AT DISCHARGE I ANTICIPATE HER TO RETURN TO [facility] TO CONTINUE HER SKILLED THERAPY DCPIA - Discharge Planning Initial Assessment Updated by [email or web address]: Magaly Duran on 12/15/19 9:09 am * PCP ROSALBA * Pharmacy [facility] * Preadmission Environment Detention Facility * Facility Name [facility] * ADLs Partial Dependent * Partial ADLs (Assistance needed) Bathing Medication Management * Equipment Bedside Commode Enteral Feeding and Supplies Nebulizer Other Oxygen Rolling Walker Suction and Supplies Trach Care Supplies Walker Wheelchair * List name and contact numbers for known caregivers / representatives who currently or will assist patient after discharge: DEBORAH BLUE [phone] * Additional services required to return to the preadmission environment? Yes * Can the patient safely return to the preadmission environment? Yes * Has this patient been hospitalized within the prior 30 days at any hospital? No Last DP export: 12/15/19 8:10 am Patient Name: CHON LUI Page [phone] at 0917 All edits/amendments must be made on the electronic document DICTATION DATE: 12/15/19916 SURGICAL INSTRUMENT REPAIR SPECIALIST: NAHUN 12/15/19916 RPT#: [id number] DC DATE: STATUS: ADM IN [facility] [address] [place] [address] END OF REPORT
--- NOTE | 2019-12-15 09:53 | NUR ---
ALERT AND ORIENTED WITH TRACH O2 AT 1L PER TRACH COLLAR. PEG FEEDING INFUSING AT 50CC/HR AND FLUSHED WITHPLACEMENT NOTED PRIOR PER AUSCULATATION. IV TO LEFT F/A WITH NO S/S OF INFECTION/INFILTRATION. ENCOURAGED TO USE CALL LIGHT FOR ASSSIT AND DENIES ANY PAIN OR DISCOMFORT. LUNGS DIMINISHED X4 ANTERIOR AHD HRRR.
[2019-12-15 15:45] VITALS: BP 85/44
--- NOTE | 2019-12-15 16:12 | NUR ---
DISCOLORATION OF SHAVON AREA NOTED. THERE IS NO SKIN BREAKDOWN OR TENDERNESS.
--- NOTE | 2019-12-15 20:00 | NUR ---
ALERT RESTING IN BED DENIES PAIN OR NEEDS AT THIS TIME, CALL LIGHT IN REACH
[2019-12-16] VITALS: BP 98/45
[2019-12-16 04:00] VITALS: BP 100/47
[2019-12-16 08:32] VITALS: BP 107/47
--- NOTE | 2019-12-16 09:00 | NUR ---
ALERT AND ORIENTED X4. TRACH INTACT WITH HUMIDIFIED O2 1L N/C. PEG TUBE DRESSIGN CHANGED AND CLEANED. JEVITY INFUSING AT 50CC/HR. IV TNOTED TO LEFT FOREARM WITH IVF INFUSING AT 75CC/HR. ABDOMEN FIRM WITH BOWEL SOUNDS HYPOACTIVE AND STATES IS HAVING "GAS". DENIES ANY PAINOR DISCOMFORT AT THIS TIME AND ENCOURAGED TO USE CALL LIGHT FOR ASSSIT. LUNGS DININISHED X4 ANTERIOR AND HRRR.
[2019-12-16 11:47] VITALS: BP 107/44
[2019-12-16 14:05] LABS: BASOPHILS 0.2 % (0-2); EOSINOPHILS 2.1 % (0-7); HEMATOCRIT 36.3 % (36.0-48.0); HEMOGLOBIN 11.2 g/dL (12-16); IMMATURE GRANULOCYTES 0.9 % (0-5); MCH 29.4 pg (26.0-34.0); MCHC 30.9 g/dL (31.0-37.0); MCV 95.3 fL (80.0-100.0); MEAN PLATELET VOLUME 8.4 fL (7.4-10.4); NEUTROPHILS 53.8 % (40-80); PLATELET COUNT 270 10x3/uL (130-400); RBC 3.81 10x6/uL (4.00-5.40); RDW 13.5 % (11.5-14.5); WBC 6.5 10x3/uL (4.8-10.8)
[2019-12-16 14:16] LABS: ANION GAP 12.3 mmol/L (8-16); CALCIUM 8.1 mg/dL (8.5-10.1); CARBON DIOXIDE 26.7 mmol/L (21.0-32.0)
[2019-12-16 15:48] VITALS: BP 95/41
--- NOTE | 2019-12-16 19:20 | NUR ---
PATIENT ALERT AND ORIENTED WHEN ENTERING THE ROOM. PATIENT HAS TRACH COLAR THAT IS INTACT AND HAS OXYGEN ADMINISTRATION FLOWING AT 11L PER MINUTE. PATIENT HAS G TUBE TO THE ABDOMEN THAT IS CLEAN AND DRY. CURRENTLY HAS FEEDING INFUSING AT 50/ML HR PER ORDER WITH 30ML FLUSH. CHANGED FEEDING TUBE LINES. SOME EXPIRATORY WHEEZES NOTED UPON LUNG AUSCULTATION. PATIENT HAS LEFT FOREARM IV THAT IS PATENT AND INFUSING NS. PATIENT INCONTINUENET OF BOWEL, CHANGED PATIENT. STOOL YELLOW AND LOOSE. DENIES FURTHER NEEDS AT THIS TIME. CPOC.
[2019-12-16 20:00] VITALS: BP 107/48
--- NOTE | 2019-12-16 23:29 | NUR ---
RESTING WITH NO SIGNS OR SYMPTOMS OF DISTRESS. DOOR CRACKED TO MONITOR PATIENT. CALL LIGHT CLOSE. CPOC.
[2019-12-17] VITALS: BP 109/44
--- NOTE | 2019-12-17 02:15 | NUR ---
I have reviewed this patient and I concur with the Shift Assessment completed by the Licensed Practical Nurse today this shift.
[2019-12-17 04:00] VITALS: BP 141/68
[2019-12-17 05:39] LABS: BASOPHILS 0.4 % (0-2); EOSINOPHILS 2.6 % (0-7); HEMATOCRIT 32.8 % (36.0-48.0); HEMOGLOBIN 10.1 g/dL (12-16); IMMATURE GRANULOCYTES 0.8 % (0-5); LYMPHOCYTES 29.5 % (15-50); MCH 29.2 pg (26.0-34.0); MCHC 30.8 g/dL (31.0-37.0); MCV 94.8 fL (80.0-100.0); MEAN PLATELET VOLUME 8.3 fL (7.4-10.4); MONOCYTES 8.2 % (2-11); NEUTROPHILS 58.5 % (40-80); PLATELET COUNT 260 10x3/uL (130-400); RBC 3.46 10x6/uL (4.00-5.40); RDW 13.8 % (11.5-14.5)
[2019-12-17 05:55] LABS: ALBUMIN 2.2 g/dL (3.4-5.0); ALKALINE PHOSPHATASE 98 U/L (30-120); ALT (SGPT) 15 U/L (10-68); BILIRUBIN - TOTAL 0.18 mg/dL (0.2-1.3); CALC OSMOLALITY 278 mosm/kg (275-300); CALCIUM 8.1 mg/dL (8.5-10.1); CARBON DIOXIDE 29.4 mmol/L (21.0-32.0); CHLORIDE - SERUM 106 mmol/L (98-107); GLUCOSE 112 mg/dL (74-106); POTASSIUM - SERUM 3.8 mmol/L (3.5-5.1); PROTEIN - SERUM 6.1 g/dL (6.4-8.2); SODIUM 140 mmol/L (136-145); UREA NITROGEN 9 mg/dL (7-18)
[2019-12-17 05:56] LABS: CREATININE - SERUM 0.6 mg/dL (0.6-1.3); eGFR NON AFRICAN AMERICAN > 90 mL/min (90-120)
[2019-12-17 07:38] VITALS: BP 100/46
--- NOTE | 2019-12-17 08:43 | NUR ---
PT ALERT X 4. CRACKLES TO ALL PRUITT, 9L O2 PER NC. IV TO LEFT FOREARM, PATENT, DRESSING CDI. TRACH. PEG TUBE IN USE, FEEDING RUNNING AT 50ML/HR. PT REPORTING NO PAIN AT THIS TIME. SCD'S IN USE. BED LOW, CALL LIGHT IN REACH. NO OTHER NEEDS AT THIS TIME.
[2019-12-17 13:03] VITALS: BP 109/41
[2019-12-17 17:32] VITALS: BP 101/48
--- NOTE | 2019-12-17 19:31 | NUR ---
ASSISTED PATIENT ON AND OFF BEDPAN. PATIENT VOIDED 400ML. PATIENT DENIES OTHER NEEDS AT THIS TIME. BED IN LOWEST POSITION AND CALL LIGHT WITHIN REACH. ENCOURAGED THE PATIENT TO CALL IF SHE HAS NEEDS. WILL CONTINUE TO MONITOR.
[2019-12-17 20:00] VITALS: BP 134/81
[2019-12-18] VITALS: BP 116/54
[2019-12-18 04:00] VITALS: BP 135/52
[2019-12-18 05:48] LABS: BASOPHILS 0.3 % (0-2); HEMATOCRIT 33.9 % (36.0-48.0); HEMOGLOBIN 10.5 g/dL (12-16); IMMATURE GRANULOCYTES 0.4 % (0-5); LYMPHOCYTES 25.2 % (15-50); MCH 29.2 pg (26.0-34.0); MCV 94.4 fL (80.0-100.0); MEAN PLATELET VOLUME 8.3 fL (7.4-10.4); MONOCYTES 5.4 % (2-11); NEUTROPHILS 66.7 % (40-80); PLATELET COUNT 299 10x3/uL (130-400); RBC 3.59 10x6/uL (4.00-5.40); RDW 13.8 % (11.5-14.5)
[2019-12-18 05:54] LABS: WBC 7.7 10x3/uL (4.8-10.8)
[2019-12-18 06:10] LABS: ALBUMIN 2.4 g/dL (3.4-5.0); ALKALINE PHOSPHATASE 117 U/L (30-120); BILIRUBIN - TOTAL 0.13 mg/dL (0.2-1.3); CALC OSMOLALITY 275 mosm/kg (275-300); CALCIUM 8.4 mg/dL (8.5-10.1); CARBON DIOXIDE 28.4 mmol/L (21.0-32.0); CHLORIDE - SERUM 103 mmol/L (98-107); CREATININE - SERUM 0.6 mg/dL (0.6-1.3); GLUCOSE 115 mg/dL (74-106); MAGNESIUM - SERUM 1.8 mg/dL (1.8-2.4); PHOSPHOROUS 2.9 mg/dL (2.5-4.9); POTASSIUM - SERUM 3.7 mmol/L (3.5-5.1); PRO BNP 1974 pg/mL (0-125); PROTEIN - SERUM 6.6 g/dL (6.4-8.2); SODIUM 138 mmol/L (136-145); UREA NITROGEN 10 mg/dL (7-18); eGFR NON AFRICAN AMERICAN > 90 mL/min (90-120)
[2019-12-18 06:30] LABS: ALT (SGPT) 11 U/L (10-68)
[2019-12-18 07:48] VITALS: BP 121/46
[2019-12-18 12:27] VITALS: BP 97/41
--- NOTE | 2019-12-18 12:34 | NUR ---
Skin around Gtube is red/irritated. Dressing needs to be changed daily and as needed, cleansing skin with each dressing change. Wound care will monitor.
[2019-12-18 16:18] VITALS: BP 83/35
[2019-12-18 21:50] VITALS: BP 99/46
[2019-12-19] VITALS: BP 108/47
[2019-12-19 05:50] VITALS: BP 150/70
[2019-12-19 05:52] LABS: BASOPHILS 0.1 % (0-2); EOSINOPHILS 2.2 % (0-7); HEMATOCRIT 36.2 % (36.0-48.0); HEMOGLOBIN 11.1 g/dL (12-16); IMMATURE GRANULOCYTES 0.3 % (0-5); MCH 29.4 pg (26.0-34.0); MCHC 30.7 g/dL (31.0-37.0); MCV 95.8 fL (80.0-100.0); MEAN PLATELET VOLUME 8.5 fL (7.4-10.4); MONOCYTES 5.7 % (2-11); NEUTROPHILS 61.7 % (40-80); PLATELET COUNT 304 10x3/uL (130-400); RBC 3.78 10x6/uL (4.00-5.40); WBC 7.6 10x3/uL (4.8-10.8)
[2019-12-19 05:56] LABS: APTT 29.6 SECONDS (22.8-39.4); INR 1.02 (0.85-1.17); PROTIME 13.4 SECONDS (11.6-15.0)
[2019-12-19 06:21] LABS: ALBUMIN 2.5 g/dL (3.4-5.0); ALKALINE PHOSPHATASE 104 U/L (30-120); BILIRUBIN - TOTAL 0.29 mg/dL (0.2-1.3); CALC OSMOLALITY 277 mosm/kg (275-300); CALCIUM 8.8 mg/dL (8.5-10.1); CHLORIDE - SERUM 104 mmol/L (98-107); CREATININE - SERUM 0.7 mg/dL (0.6-1.3); GLUCOSE 98 mg/dL (74-106); PROTEIN - SERUM 6.7 g/dL (6.4-8.2); SODIUM 139 mmol/L (136-145); UREA NITROGEN 12 mg/dL (7-18); eGFR NON AFRICAN AMERICAN 88 mL/min (90-120)
[2019-12-19 06:22] LABS: ALT (SGPT) 14 U/L (10-68); POTASSIUM - SERUM 4.4 mmol/L (3.5-5.1)
[2019-12-19 09:16] VITALS: BP 104/62
[2019-12-19 13:20] VITALS: BP 119/48
--- NOTE | 2019-12-19 13:57 | NUR ---
Nutrition follow-up: Jevity 1.5 mary infusing @ 50 ml/hr with 25 ml H2O flush Pt tolerating TF Labs reviewed WT: 82# ?? Please get current wt - will speak with nurse. RDN following.
[2019-12-19 18:56] VITALS: BP 95/34
--- NOTE | 2019-12-19 19:40 | NUR ---
PT SITTING UP IN BED WITHOUT DISTRESS, AOX4. TRACH NOTED WITH O2 9L. GTUBE IN PLACE WITH FEEDING AT 50ML/HR. IV LEFT FA INFUSING NS @ KVO. SCDS ON. ASSISTED PT ON AND OFF BEDPAN TO VOID, 200ML. DENIES NEEDS AT THIS TIME. CL IN REACH, WILL CTM
[2019-12-19 20:00] VITALS: BP 93/31
--- NOTE | 2019-12-19 20:30 | NUR ---
PT INCONTINENT OF STOOL, CHANGED LINENS AND SHAVON CARE PROVIDED. CREAM PLACED ON RED SHAVON AREA AND BOTTOM. DENIES OTHER NEEDS, WILL CTM
--- NOTE | 2019-12-19 21:30 | NUR ---
PT PLACED ON AND OFF BEDPAN, VOIDED 200ML
--- NOTE | 2019-12-19 22:00 | NUR ---
GAVE HS MEDS ORDERED VIA GTUBE
--- NOTE | 2019-12-20 | NUR ---
PT NPO AFTER MN, STOPPED FEEDING AND FLUSHED AND GTUBE
--- NOTE | 2019-12-20 02:15 | NUR ---
PT SLEEPING WITHOUT DISTRESS, WILL CTM
[2019-12-20 04:00] VITALS: BP 89/38
[2019-12-20 05:30] LABS: BASOPHILS 0.5 % (0-2); EOSINOPHILS 2.9 % (0-7); HEMATOCRIT 34.6 % (36.0-48.0); HEMOGLOBIN 10.6 g/dL (12-16); IMMATURE GRANULOCYTES 0.3 % (0-5); MCH 29.2 pg (26.0-34.0); MCHC 30.6 g/dL (31.0-37.0); MCV 95.3 fL (80.0-100.0); MEAN PLATELET VOLUME 8.2 fL (7.4-10.4); MONOCYTES 6.7 % (2-11); NEUTROPHILS 54.6 % (40-80); PLATELET COUNT 281 10x3/uL (130-400); RBC 3.63 10x6/uL (4.00-5.40); WBC 6.5 10x3/uL (4.8-10.8)
[2019-12-20 05:51] LABS: ALBUMIN 2.3 g/dL (3.4-5.0); ALKALINE PHOSPHATASE 93 U/L (30-120); ALT (SGPT) 13 U/L (10-68); BILIRUBIN - TOTAL 0.27 mg/dL (0.2-1.3); CALC OSMOLALITY 275 mosm/kg (275-300); CALCIUM 8.7 mg/dL (8.5-10.1); CARBON DIOXIDE 30.1 mmol/L (21.0-32.0); CHLORIDE - SERUM 104 mmol/L (98-107); CREATININE - SERUM 0.7 mg/dL (0.6-1.3); GLUCOSE 100 mg/dL (74-106); POTASSIUM - SERUM 4.2 mmol/L (3.5-5.1); PROTEIN - SERUM 6.5 g/dL (6.4-8.2); SODIUM 138 mmol/L (136-145); UREA NITROGEN 12 mg/dL (7-18); eGFR NON AFRICAN AMERICAN 88 mL/min (90-120)
[2019-12-20 08:00] VITALS: BP 144/79
--- NOTE | 2019-12-20 08:43 | NUR ---
PATIENT TO GET THORACENTESIS.
[2019-12-20 12:00] VITALS: BP 146/82
[2019-12-20 14:43] LABS: EOS BF 6 %; MACROPHAGES BF 15 %; MESOTHELIALS BF 2 %; NEUT - BF 47 %
[2019-12-20 16:00] VITALS: BP 96/56
--- NOTE | 2019-12-20 18:55 | NUR ---
PATIENT IN BED WITH IV INTACT. NO COMPLAINTS OR SIGNS OF DISTRESS. TF INFUSING AT 50. CALL LIGHT WITHIN REACH. TRACH COLLAR ON. PATIENT STATED FEELING AND BREATHING MUCH BETTER AFTER THORACENTESIS.
[2019-12-20 20:00] VITALS: BP 97/40
--- NOTE | 2019-12-21 01:15 | NUR ---
PT RESTING IN BED. EYES CLOSED. NO SIGNS OF DISTRESS. BREATHING EVEN AND UNLABORED. IV SITE LT WRIST DRESSING CLEAN DRY AND INTACT. NO SIGNS OF INFECTION OR INFULTRATION. TRACH COLLAR SIZE 6. 40% OXYGEN. 12LO2. LUNG SOUNDS CRACKLES AND RALES. G TUBE PRESENT. CLEAN DRY AND INTACT. TUBE FEEDING GOING @50. GROIN REDDNESS PRESENT. NO LOWER LEG SWELLING PRESENT. WILL CONTINUE PLAN OF CARE. CALL LIGHT IN REACH. BED LOWERED AND LOCKED. BED RAILS UPX2.
[2019-12-21 04:00] VITALS: BP 132/58
--- NOTE | 2019-12-21 04:25 | NUR ---
I have reviewed this patient and I concur with the Shift Assessment completed by the Licensed Practical Nurse today this shift.
[2019-12-21 06:16] LABS: BASOPHILS 0.1 % (0-2); EOSINOPHILS 2.4 % (0-7); HEMATOCRIT 33.9 % (36.0-48.0); HEMOGLOBIN 10.6 g/dL (12-16); IMMATURE GRANULOCYTES 0.1 % (0-5); LYMPHOCYTES 34.2 % (15-50); MCH 29.4 pg (26.0-34.0); MCHC 31.3 g/dL (31.0-37.0); MCV 94.2 fL (80.0-100.0); MEAN PLATELET VOLUME 8.6 fL (7.4-10.4); MONOCYTES 6.4 % (2-11); NEUTROPHILS 56.8 % (40-80); PLATELET COUNT 288 10x3/uL (130-400); RDW 14.1 % (11.5-14.5); WBC 7.4 10x3/uL (4.8-10.8)
[2019-12-21 06:32] LABS: ALBUMIN 2.4 g/dL (3.4-5.0); ALKALINE PHOSPHATASE 100 U/L (30-120); ALT (SGPT) 15 U/L (10-68); BILIRUBIN - TOTAL 0.26 mg/dL (0.2-1.3); CALC OSMOLALITY 275 mosm/kg (275-300); CALCIUM 8.8 mg/dL (8.5-10.1); CARBON DIOXIDE 30.7 mmol/L (21.0-32.0); CHLORIDE - SERUM 98 mmol/L (98-107); CREATININE - SERUM 0.7 mg/dL (0.6-1.3); GLUCOSE 153 mg/dL (74-106); POTASSIUM - SERUM 3.6 mmol/L (3.5-5.1); PROTEIN - SERUM 6.7 g/dL (6.4-8.2); SODIUM 135 mmol/L (136-145); UREA NITROGEN 21 mg/dL (7-18); eGFR NON AFRICAN AMERICAN 88 mL/min (90-120)
[2019-12-21 08:00] VITALS: BP 94/43
[2019-12-21 12:00] VITALS: BP 87/39
[2019-12-21 16:00] VITALS: BP 96/46
--- NOTE | 2019-12-21 18:39 | NUR ---
I have reviewed this patient and I concur with the Shift Assessment completed by the Licensed Practical Nurse today this shift.
[2019-12-21 20:00] VITALS: BP 99/45
--- NOTE | 2019-12-21 20:00 | NUR ---
PATIENT RESTING IN BED WATCHING TV. NO S/S OF ACUTE DISTRESS. NO C/O AT THIS TIME. PATIENT HAS TRACHE AND A TRACHE COLLAR @ 40%. PATIENT HAS A LEFT WRIST NORMAL SALINE @ 30 ML/HR. IV IS PATENT WITHOUT REDNESS, SWELLING, OR TENDERNESS. PATIENT HAS A PEG TUBE WITH JEVITY 1.5 GHULAM @ 50 ML, AND FLUSH @ 25 ML. PEG TUBE DRESSING C/D/I. PATIENT HAD A RIGHT LUNG THORACENTESIS YESTERDAY. PATIENT IS NPO. PATIENT IS ON CONTACT ISOLATION. PATIENT USES BED GR. CALL LIGHT WITHIN REACH. WILL CONTINUE TO MONITOR.
--- NOTE | 2019-12-21 21:45 | NUR ---
PATIENT FEEDING TUBE AND KANGAROO BAG NEEDED TO BE CHANGED. THERE WAS NO JEVITY 1.5 GHULAM ON THE FLOOR. KITCHEN WAS CALLED-NO ANSWER. PAYROLL AND BENEFITS COORDINATOR WAS CALLED AND BROUGHT JEVITY 1.2 GHULAM. PAYROLL AND BENEFITS COORDINATOR STATED THAT THIS WAS ALL SHE COULD FIND. WHEN ASLED IF I SIMPLY STOP HER FEEDING, PAYROLL AND BENEFITS COORDINATOR (SHAN) SAID TO GO HEAD AND REFILL THE BAG WITH 1.2 GHULAM. I ALSO ASKED MY CHARGE NURSE ELINOR WHAT TO DO, SHE ALSO TOLD ME TO GO AHEAD AND CHANGE THE BAG AND PLACE THE 1.2 GHULAM. I HAVE REPLACED THE OLD KANGAROO BAG NOW WITH 1.2 GHULAM 700ML IN TOTAL. THE TUBE FEEDING IS RUNNING @ 50ML. CALL LIGHT WITHIN REACH. WILL CONTINUE TO MONITOR.
[2019-12-22] VITALS: BP 92/46
--- NOTE | 2019-12-22 00:13 | NUR ---
I have reviewed this patient and I concur with the Shift Assessment completed by the Licensed Practical Nurse today this shift.
[2019-12-22 04:00] VITALS: BP 109/45
--- NOTE | 2019-12-22 06:50 | NUR ---
ALERT AND ORIENTED, RESTING IN BED WITH EYES OPEN. NO C/O PAIN. NO S/S OF ACUTE DISTRESS NOTED. 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 TRACH COLLAR @ 40%. IV TO LEFT WRIST, NS INFUSING @ 30ML/HR. SITE PATENT WITHOUT REDNESS OR SWELLING. PEG TUBE TO LUQ, JEVITY 1.5 INFUSING @ 50ML/HR WITH 25ML FLUSH PER HOUR. SCDS PRESENT. DENIES ANY NEEDS AT THIS TIME. CALL LIGHT IN REACH. WILL CONTINUE TO MONITOR.
[2019-12-22 08:00] VITALS: BP 101/49
--- NOTE | 2019-12-22 10:22 | MORECARE ---
CASE MANAGEMENT DISCHARGE SUMMARY PATIENT: CHON LUI UNIT: [id number] ADM DATE: 12/10/19 AGE: 69 : 50 SEX: F ROOM/BED: D.2227 AUTHOR: MONET,DOC PHYSICIAN: REFERRING PHYSICIAN: MARY KAY SARKAR MD DATE OF SERVICE: 12/22/19 Discharge Plan Patient Name: CHON LUI Facility: [facility]:[place] : 1950 Planned Disposition: Penitentiary Facility Anticipated Discharge Date: Discharge Date: Expected LOS: Initial Reviewer: [id number] Initial Review Date: 12/10/2019 Generated: 12/22/19 11:21 am DCP- Discharge Planning Updated by [email or web address]: Magaly Duran on 12/15/19 8:[address] [facility], [facility] SHE LIVED WITH HER DAUGHTER DEBORAH. PATIENT HAS A TRACH AND PEG TUBE HER DME INCLUDES: WALKER, WC, NEB, TRACH SUPPLIES, SUCTION SUPPLIES, TUBE FEEDINGS, O2, NEB. AT DISCHARGE I ANTICIPATE HER TO RETURN TO [facility] TO CONTINUE HER SKILLED THERAPY DCPIA - Discharge Planning Initial Assessment Updated by [email or web address]: Magaly Duran on 12/15/19 9:09 am * PCP ROSALBA * Pharmacy [facility] * Preadmission Environment Penitentiary Facility * [facility] * ADLs Partial Dependent * Partial ADLs (Assistance needed) Bathing Medication Management * Equipment Bedside Commode Enteral Feeding and Supplies Nebulizer Other Oxygen Rolling Walker Suction and Supplies Trach Care Supplies Walker Wheelchair * List name and contact numbers for known caregivers / representatives who currently or will assist patient after discharge: DEBORAH BLUE [phone] * Additional services required to return to the preadmission environment? Yes * Can the patient safely return to the preadmission environment? Yes * Has this patient been hospitalized within the prior 30 days at any hospital? No External Providers External Provider: [facility] Next Contact Date: Service Request Date: Service Type: Resolution: Reviewer: Comments: Last DP export: 12/15/19 8:17 am Patient Name: CHON LUI Page [phone] at 1022 All edits/amendments must be made on the electronic document DICTATION DATE: 12/22/19 1021 ORDER EDITOR: NAHUN 12/22/19 1021 RPT#: [id number] DC DATE: STATUS: ADM IN [facility] [address] [place] [address] END OF REPORT
--- NOTE | 2019-12-22 11:50 | NUR ---
I have reviewed this patient and I concur with the Shift Assessment completed by the Licensed Practical Nurse today this shift.
[2019-12-22 12:00] VITALS: BP 89/43
--- NOTE | 2019-12-22 12:07 | MORECARE ---
CASE MANAGEMENT DISCHARGE SUMMARY PATIENT: CHON LUI UNIT: [id number] ADM DATE: 12/10/19 AGE: 69 : 50 SEX: F ROOM/BED: D.2227 AUTHOR: MONET,DOC PHYSICIAN: REFERRING PHYSICIAN: MARY KAY SARKAR MD DATE OF SERVICE: 12/22/19 Discharge Plan Patient Name: CHON LUI Facility: [facility]:[place] : 1950 Planned Disposition: Senior Care Facility Anticipated Discharge Date: Discharge Date: Expected LOS: Initial Reviewer: [email or web address] Initial Review Date: 12/10/2019 Generated: 12/22/19 1:07 pm Comments DCP- Discharge Planning Updated by [email or web address]: Ida Diaz on 12/22/19 11:[address] Patient Name: CHON LUI Admission Status: ER Accout number: [id number] Admission Date: 12-10-2019 : 1950 Admission Diagnosis:SHORTNESS OF BREATH Attending: MARY KAY SARKAR Current LOS: 12 Anticipated DC Date: Planned Disposition: Senior Care Facility Primary Insurance: MEDICARE A & B Discharge Planning Comments: [facility] ACCEPTING BACK TO SNF. RN GIVEN NUMBER TO CALL REPORT. PATIENT WILL BE TRANSPORTED BY AMBULANCE DUE TO 02 REQUIREMENTS. News Videographer: Ida Diaz DCP- Discharge Planning Updated by [email or web address]: Magaly Duran on 12/15/19 8:[address] PATIENT WAS ADMITTED FROM [facility] IN A SKILLED BED, PRIOR TO [facility] SHE LIVED WITH HER DAUGHTER DEBORAH. PATIENT HAS A TRACH AND PEG TUBE HER DME INCLUDES: WALKER, WC, NEB, TRACH SUPPLIES, SUCTION SUPPLIES, TUBE FEEDINGS, O2, NEB. AT DISCHARGE I ANTICIPATE HER TO RETURN TO [facility] TO CONTINUE HER SKILLED THERAPY DCPIA - Discharge Planning Initial Assessment Updated by [email or web address]: Magaly Duran on 12/15/19 9:09 am * PCP ROSALBA * Pharmacy [facility] * Preadmission Environment Senior Care Facility * Facility Name [facility] * ADLs Partial Dependent * Partial ADLs (Assistance needed) Bathing Medication Management * Equipment Bedside Commode Enteral Feeding and Supplies Nebulizer Other Oxygen Rolling Walker Suction and Supplies Trach Care Supplies Walker Wheelchair * List name and contact numbers for known caregivers / representatives who currently or will assist patient after discharge: DEBORAH BLUE [phone] * Additional services required to return to the preadmission environment? Yes * Can the patient safely return to the preadmission environment? Yes * Has this patient been hospitalized within the prior 30 days at any hospital? No Coverage Notice Reviewer: [email or web address] Holly Diaz Notice Issued Date-Time: 12/22/2019 11:37 Notice Type: IM Discharge Notice Notice Delivered To: Patient Relationship to Patient: Community Outreach Coordinator Name: Delivery Method: HAND - Hand Delivered Cassandra Days: Prior Verbal Notification: Recipient Understood Notice: Yes Recipient Signature: Yes Med Rec Note Co-signed by Attending: Coverage Notice Comment: Last DP export: 12/22/19 9:22 am Patient Name: CHON LUI Page [phone] at 1207 All edits/amendments must be made on the electronic document DICTATION DATE: 12/22/19 1207 CARRIAGE FEEDER: NAHUN 12/22/19 1207 RPT#: [id number] DC DATE: STATUS: ADM IN [facility] [address] [place] [address] END OF REPORT
--- NOTE | 2019-12-22 12:53 | NUR ---
PATIENT TO BE DISCHARGED TO [facility]IA AMBULANCE. CALLED REPORT LYRIC ROBERT.
--- NOTE | 2019-12-22 13:34 | NUR ---
DISCHARGED PATIENT TO [facility] VIA STRETCHER IN AN AMBULANCE. DISCONTINUED IV, CATHETER TIP INTACT. WENT OVER DISCHARGE INSTRUCTIONS WITH PATIENT, VERBALIZED UNDERSTANDING. DENIES ANYTHING FURTHER.
--- NOTE | 2019-12-22 17:22 | MORECARE ---
CASE MANAGEMENT DISCHARGE SUMMARY PATIENT: CHON LUI UNIT: [id number] ADM DATE: 12/10/19 AGE: 69 : 50 SEX: F ROOM/BED: D.2227 AUTHOR: MONET,DOC PHYSICIAN: REFERRING PHYSICIAN: MARY KAY SARKAR MD DATE OF SERVICE: 12/22/19 Discharge Plan Patient Name: CHON LUI Facility: [facility]:[place] : 1950 Planned Disposition: Retirement Facility Anticipated Discharge Date: Discharge Date: 12/22/2019 Expected LOS: Initial Reviewer: [id number] Initial Review Date: 12/10/2019 Generated: 12/22/19 6:21 pm Comments DCP- Discharge Planning Updated by [email or web address]: Ida Diaz on 12/22/19 11:[address] Patient Name: CHON LUI Admission Status: ER Accout number: [id number] Admission Date: 12-10-2019 : 1950 Admission Diagnosis:SHORTNESS OF BREATH Attending: MARY KAY SARKAR Current LOS: 12 Anticipated DC Date: Planned Disposition: Retirement Facility Primary Insurance: MEDICARE A & B Discharge Planning Comments: [facility] ACCEPTING BACK TO SNF. RN GIVEN NUMBER TO CALL REPORT. PATIENT WILL BE TRANSPORTED BY AMBULANCE DUE TO 02 REQUIREMENTS. Hook And Eye Machine Operator: Ida Diaz DCP- Discharge Planning Updated by [email or web address]: Magaly Duran on 12/15/19 8:[address] PATIENT WAS ADMITTED FROM [facility] IN A SKILLED BED, PRIOR TO [facility] SHE LIVED WITH HER DAUGHTER DEBORAH. PATIENT HAS A TRACH AND PEG TUBE HER DME INCLUDES: WALKER, WC, NEB, TRACH SUPPLIES, SUCTION SUPPLIES, TUBE FEEDINGS, O2, NEB. AT DISCHARGE I ANTICIPATE HER TO RETURN TO [facility] TO CONTINUE HER SKILLED THERAPY DCPIA - Discharge Planning Initial Assessment Updated by [id number]: Magaly Duran on 12/15/19 9:09 am * PCP ROSALBA * [facility] * Preadmission Environment Retirement Facility * Facility Name [facility] * ADLs Partial Dependent * Partial ADLs (Assistance needed) Bathing Medication Management * Equipment Bedside Commode Enteral Feeding and Supplies Nebulizer Other Oxygen Rolling Walker Suction and Supplies Trach Care Supplies Walker Wheelchair * List name and contact numbers for known caregivers / representatives who currently or will assist patient after discharge: DEBORAH BLUE [phone] * Additional services required to return to the preadmission environment? Yes * Can the patient safely return to the preadmission environment? Yes * Has this patient been hospitalized within the prior 30 days at any hospital? No Coverage Notice Reviewer: [email or web address] Holly Diaz Notice Issued Date-Time: 12/22/2019 11:37 Notice Type: IM Discharge Notice Notice Delivered To: Patient Relationship to Patient: Trailer Rental Clerk Name: Delivery Method: HAND - Hand Delivered Cassandra Days: Prior Verbal Notification: Recipient Understood Notice: Yes Recipient Signature: Yes Med Rec Note Co-signed by Attending: Coverage Notice Comment: Last DP export: 12/22/19 11:07 am Patient Name: CHON LUI Page [phone] at 1722 All edits/amendments must be made on the electronic document DICTATION DATE: 12/22/191720 ALARM MECHANISM ADJUSTER: NAHUN 12/22/191720 RPT#: [id number] DC DATE:12/22/19 STATUS: DIS IN [facility] [address] [place] [address] END OF REPORT
== END 2019-12-22 13:37 | DRG 177 ==
LOC: D.ER 04:23 → D.MS 06:24
PROVIDERS: Emergency Medicine; Family Medicine Adult Medicine; Internal Medicine Pulmonary Disease; Specialist; ADMIT Internal Medicine Nephrology; ATTEND Internal Medicine Nephrology
DX: J15.6 Pneumonia due to other Gram-negative bacteria (principal); J96.21 Acute and chronic respiratory failure with hypoxia; I50.43 Acute on chronic combined systolic (congestive) and diastolic (congestive) heart failure; J44.0 Chronic obstructive pulmonary disease with (acute) lower respiratory infection; J44.1 Chronic obstructive pulmonary disease with (acute) exacerbation; N17.9 Acute kidney failure, unspecified; E87.1 Hypo-osmolality and hyponatremia; E44.0 Moderate protein-calorie malnutrition; Z68.1 Body mass index [BMI] 19.9 or less, adult; J15.212 Pneumonia due to Methicillin resistant Staphylococcus aureus; J20.9 Acute bronchitis, unspecified; K21.9 Gastro-esophageal reflux disease without esophagitis; E03.9 Hypothyroidism, unspecified; F32.9 Major depressive disorder, single episode, unspecified; I11.0 Hypertensive heart disease with heart failure; D64.9 Anemia, unspecified; I25.10 Atherosclerotic heart disease of native coronary artery without angina pectoris

== ENCOUNTER → 2020-01-15 13:21 | Outpatient (CLI) | payer MEDICARE ==
[2019-12-10 13:13] VITALS: BMI 14.7
[~2020-01-15 13:21] MED LIST changes: +MYLANTA / MAALO30 ML PEG; +OMNICEF250 MG/5 M PO; +PROMOD LIQUID P30 M1 PO; +SCOT-TUSSI10 MG/5 ML PEG
== END | disposition home or self-care (01) ==
LOC: D.RAD 13:00
PROVIDERS: ATTEND Legal Medicine
DX: R13.12 Dysphagia, oropharyngeal phase (principal)

== ENCOUNTER 2020-04-23 22:16 | Inpatient (IN) | payer MEDICARE ==
[~2020-04-23] VITALS: Ht 160 cm; Wt 66.6 kg
--- NOTE | ~2020-04-23 | EC ---
PATIENT:CHON LUI DATE OF SERVICE: 04/24/20 SEX: F MEDICAL RECORD: [id number] DATE OF : [birth year] LOCATION:D.M2 D.210 AGE OF PATIENT: 69 ADMISSION DATE: 04/24/20 REFERRING PHYSICIAN: INTERPRETING PHYSICIAN: BRICE CASTELLANOS MD ECHOCARDIOGRAM REPORT ECHO CHARGES 4 ECHO COMPLETE Date: 04/30/20 CLINICAL DIAGNOSIS: R/O VEG ECHOCARDIOGRAPHIC MEASUREMENTS (adult normal given) AC root (d.<3.7cm) 3.0 cm LV Septum d (<1.2 cm> 0.9 cm Valve Excursion 0.8 cm LV Septum (systole) 1.2 cm Left Atria (s.<4.0cm> 3.1 cm LVPW d(<1.2cm) 1.0 cm RV (d.<2.3cm) 1.9 cm LVPW (sytole) 1.4 cm LV diastole(<5.6CM) 4.5 cm MV E-F(>70mm/sec) cm LV systole 3.4 cm LVOT Diameter 1.5 cm MV exc.(>10mm) 1.4 cm Est.ejection fraction (50-75%) % DOPPLER: LVIT cm/sec A 156 cm/sec E 123 cm/sec LA cm/sec RVSP 17 mmHg LVOT 80 cm/sec AOP1/2T m/s Asc. Ao 134 cm/sec RVOT 69 cm/sec RA cm/sec PA 64 cm/sec AV Gradient Peak 7.2 mmHg AV Mean 3.5 mmHg AV Area 1.5 cm MV Gradient Peak 11.8 mmHg MV Mean 4.4 mmHg MV Area cm COMMENTS: Sales Rep: Junaid DICKINSON Production Painter: 3 Dr. Charles TAPE# PACS Pericardial Effusion N DATE OF SERVICE: Adequate 2D, color flow imaging, spectral Doppler, and M-Mode. No LVH. LV internal dimension is normal. Wall motion is normal to 55%. Aortic valve is tricuspid. No evidence of stenosis by Doppler interrogation. Left atrium is normal at 3.1 cm. Mitral valve shows mitral annular calcification. Trivial MR. Right-sided chambers are grossly normal. Trivial TR. TRANSINT:[id number] Voice Confirmation ID: [id number] DOCUMENT ID: [id number] ECHOCARDIOGRAM REPORT [id number] HU,CHONBRICE GUZMAN MD CC: [id number] DICTATION DATE: 04/30/20 1525 COMBINATION WELDER APPRENTICE: 04/30/20 2251 ADM IN [place] [id number] [place] [id number]
[~2020-04-23 22:16] MED LIST changes: +SYNTHROID175 MCG PEG; -TIROSINT13 MCG PEG
[2020-04-23 23:08] LABS: BASOPHILS 0.2 % (0-2); EOSINOPHILS 0.1 % (0-7); HEMATOCRIT 34.5 % (36.0-48.0); HEMOGLOBIN 10.9 g/dL (12-16); IMMATURE GRANULOCYTES 0.2 % (0-5); LYMPHOCYTES 11.2 % (15-50); MCH 28.5 pg (26.0-34.0); MCHC 31.6 g/dL (31.0-37.0); MCV 90.1 fL (80.0-100.0); MEAN PLATELET VOLUME 8.9 fL (7.4-10.4); MONOCYTES 4.9 % (2-11); NEUTROPHILS 83.4 % (40-80); PLATELET COUNT 273 10x3/uL (130-400); RBC 3.83 10x6/uL (4.00-5.40); RDW 14.9 % (11.5-14.5); WBC 12.2 10x3/uL (4.8-10.8)
[2020-04-23 23:19] LABS: CALC OSMOLALITY 282 mosm/kg (275-300); CALCIUM 9.2 mg/dL (8.5-10.1); CARBON DIOXIDE 29.4 mmol/L (21.0-32.0); CHLORIDE - SERUM 101 mmol/L (98-107); CREATININE - SERUM 0.9 mg/dL (0.6-1.3); GLUCOSE 128 mg/dL (74-106); POTASSIUM - SERUM 4.4 mmol/L (3.5-5.1); SODIUM 138 mmol/L (136-145); UREA NITROGEN 27 mg/dL (7-18); eGFR NON AFRICAN AMERICAN 66 mL/min (90-120)
[2020-04-23 23:23] LABS: INR 1.17 (0.85-1.17); PROTIME 14.9 SECONDS (11.6-15.0)
[2020-04-23 23:24] LABS: APTT 46.1 SECONDS (22.8-39.4)
[2020-04-23 23:25] LABS: D-DIMER-QUANTITATIVE 1.08 ug/mLFEU (0.20-0.54)
[2020-04-23 23:33] LABS: ALBUMIN 2.7 g/dL (3.4-5.0); ALKALINE PHOSPHATASE 118 U/L (30-120); ALT (SGPT) 20 U/L (10-68); BILIRUBIN - TOTAL 0.44 mg/dL (0.2-1.3); CREATINE KINASE 12 UL (21-215); MAGNESIUM - SERUM 2.2 mg/dL (1.8-2.4); PRO BNP 552 pg/mL (0-125); PROTEIN - SERUM 7.8 g/dL (6.4-8.2); THYROID STIMULATING HORMONE 0.02 uIU/mL (0.36-3.74)
[2020-04-23 23:35] LABS: TROPONIN-I < 0.017 ng/mL (0.000-0.060)
[2020-04-23 23:49] LABS: BILIRUBIN NEGATIVE (NEGATIVE); KETONE NEGATIVE (NEGATIVE); NITRITE NEGATIVE (NEGATIVE); UROBILINOGEN NORMAL (NORMAL)
[2020-04-23 23:51] LABS: AMORPHOUS SEDIMENT >1+ /lpf (NONE SEEN); BACTERIA MODERATE /hpf (NONE SEEN); EPITHELIAL CELLS 0-5 /hpf (0-5)
[2020-04-24] VITALS (68 sets, daily range): BP systolic 76–141; BP diastolic 19–91; BMI 26.4; BMI 22.1
[2020-04-24 05:43] LABS: C-REACTIVE PROTEIN 12.3 mg/dL (0.0-0.9); CKMB 0.2 U/L (0.0-3.6); CREATINE KINASE 51 UL (21-215); FERRITIN 369 ng/mL (3-244); TROPONIN-I < 0.017 ng/mL (0.000-0.060)
[2020-04-24 06:01] LABS: ERYTHROCYTE SEDIMENTATION RATE 68 mm/hr (0-30)
--- NOTE | 2020-04-24 07:00 | NUR ---
REC'D REPORT AND RESUMED CARE, AAO, O2 VIA SOHA MASK TO TRACH, 40 % AND 10 LITERS, CHRONIC TRACH AND PEG IN USE, ASSESSMENT COMPLETED PER FLOWSHEET, NO NEEDS AT THIS TIME, PAIN
--- NOTE | 2020-04-24 09:00 | NUR ---
MORNING MED[facility]
--- NOTE | 2020-04-24 13:50 | NUR ---
CALLED TO ROOM, C/0 PAIN IN BACK, PERCOCET 5/325 GIVEN PER MAR ORDER, RT AT BEDSIDE FOR RESPIRATORY CULTURE
--- NOTE | 2020-04-24 16:00 | NUR ---
JEVITY TUBE FEED INITIATED VIA 13 GTT A MINUTE
[2020-04-25] VITALS (31 sets, daily range): BP systolic 81–142; BP diastolic 36–115
[2020-04-25 08:13] LABS: T3 - FREE 1.8 pg/mL (2.0-4.4)
[2020-04-25 10:12] LABS: THYROGLOBULIN ANTIBODY <1.0 IU/mL (0.0-0.9); THYROID PEROXIDASE ABS <9 IU/mL (0-34)
--- NOTE | 2020-04-25 14:09 | NUR ---
RECEIVED TRANSFER FROM ICU. TRANSFERRED TO UNIT VIA BED. VS 83/35, 93, 18, 94%. CHRONIC TRACH. NO SIGNS DISTRESS. DENIES PAIN. WILL CONTINUE PLAN OF CARE AND SAFETY PRECAUTIONS. CALL LIGHT IN REACH. BED IN LOWEST POSITION.
--- NOTE | 2020-04-25 18:32 | NUR ---
RESPIRATORY CLEANING TRACH. TUBE FEED STARTED AT 13GTT/MIN, JEVITY 1.5. FINAL FEED TODAY. NO RESIDUAL PULLED BACK BEFORE THE FEED, FLUSHED WITH 20ML.
--- NOTE | 2020-04-25 19:15 | NUR ---
TUBE FEEDING BAG IS EMPTY. PER PREVIOUS NURSE, PT HAD 3 CANS OF JEVITY 1.5 TODAY VIA DRIP RATE SINCE THEY DID NOT HAVE A KANGAROO PUMP. SPOKE TO CHARGE NURSE, HI FREIRE AND SHE IS CHECKING WITH SHIFT SUP TO FIND A PUMP FOR HER TUBE FEEDINGS. WILL FOLLOW UP. PT IS ALERT AND ORIENTED. DENIES PAIN OR NEEDS. BED LOW AND CALL LIGHT WITHIN REACH.
--- NOTE | 2020-04-25 19:30 | NUR ---
REPORT RECEIVED AND RESUMED CARE. PT IS AAO. TUBE FEEDING FINISHED. PER PREVIOUS NURSE, PT FINISHED HER 3RD CAN OF JEVITY 1.5 THROUGH PEG AT 15GTT/MIN. CHANGED THE DRESSING AROUND HER PEG TUBE. SHE IS ON 40% O2 WITH A TRACH COLLAR. IV TO RIGHT WRIST IS LEAKING. REMOVED IT WITHOUT DIFFICULTY AND PLACED A 22G TO HER LEFT FOREARM X 1 ATTEMPT. SHE TOLERATED WELL. SHE HAS NS INFUSING AT 50ML/HR. SHE WAS INCONTINENT OF URINE. CHANGED HER BRIEF AND DID A PARTIAL LINEN CHANGE. SHE DENIES PAIN NEEDS AT THIS TIME. BED IS LOW AND CALL LIGHT IN REACH.
[2020-04-26] VITALS: BP 110/48
[2020-04-26 04:02] VITALS: BP 113/54
--- NOTE | 2020-04-26 06:19 | NUR ---
FEEDING TUBE INFUSION SET CHANGED. JEVITY 1.5 RESUMED AT 30ML/HR ON KANGAROO PUMP WITH 25ML WATER FLUSHES EVERY HOUR.
[2020-04-26 06:52] LABS: BASOPHILS 0 % (0-2); EOSINOPHILS 0 % (0-7); HEMATOCRIT 30.6 % (36.0-48.0); HEMOGLOBIN 9.5 g/dL (12-16); IMMATURE GRANULOCYTES 0.2 % (0-5); LYMPHOCYTES 16.5 % (15-50); MCH 27.5 pg (26.0-34.0); MCV 88.7 fL (80.0-100.0); MEAN PLATELET VOLUME 9.2 fL (7.4-10.4); MONOCYTES 1.2 % (2-11); NEUTROPHILS 82.1 % (40-80); PLATELET COUNT 264 10x3/uL (130-400); RBC 3.45 10x6/uL (4.00-5.40); WBC 6.4 10x3/uL (4.8-10.8)
[2020-04-26 07:13] LABS: ALBUMIN 2.4 g/dL (3.4-5.0); ALKALINE PHOSPHATASE 81 U/L (30-120); ALT (SGPT) 16 U/L (10-68); BILIRUBIN - TOTAL 0.14 mg/dL (0.2-1.3); CALC OSMOLALITY 285 mosm/kg (275-300); CALCIUM 8.4 mg/dL (8.5-10.1); CARBON DIOXIDE 26.4 mmol/L (21.0-32.0); CHLORIDE - SERUM 106 mmol/L (98-107); CREATININE - SERUM 0.6 mg/dL (0.6-1.3); GLUCOSE 109 mg/dL (74-106); MAGNESIUM - SERUM 1.9 mg/dL (1.8-2.4); PHOSPHOROUS 3.6 mg/dL (2.5-4.9); POTASSIUM - SERUM 4.5 mmol/L (3.5-5.1); PROTEIN - SERUM 6.4 g/dL (6.4-8.2); SODIUM 141 mmol/L (136-145); THYROID STIMULATING HORMONE 0.01 uIU/mL (0.36-3.74); UREA NITROGEN 24 mg/dL (7-18); eGFR NON AFRICAN AMERICAN > 90 mL/min (90-120)
--- NOTE | 2020-04-26 07:25 | NUR ---
recieved patient lying in bed resting. no complaints at this time.
[2020-04-26 07:58] VITALS: BP 108/48
[2020-04-26 11:53] VITALS: BP 125/41
--- NOTE | 2020-04-26 13:51 | NUR ---
Nutrition Follow-up: TF order: Jevity 1.5 @ 40mL/hr + H2O @ 25mL/hr TF currently running at 30mL/hr + H2O @ 25mL/hr Last BM: 04/26/20. Wt: 146.6# (04/25/20); 148.8# (04/24/20) Meds noted: probiotic, NS@50. Labs noted: Glu 109(H) Recommend continue to advance TF to goal rate of 40mL/hr. RD following.
[2020-04-26 16:10] VITALS: BP 123/49
--- NOTE | 2020-04-26 16:58 | MORECARE ---
CASE MANAGEMENT DISCHARGE SUMMARY PATIENT: CHON LUI UNIT: [id number] ADM DATE: 04/24/20 AGE: 69 : 50 SEX: F ROOM/BED: D.3260 AUTHOR: NATALIA HEALY PHYSICIAN: REFERRING PHYSICIAN: BRICE CHILD MD DATE OF SERVICE: 04/26/20 Discharge Plan Patient Name: CHON LUI Facility: [facility]:[place] : 1950 Planned Disposition: Nursing Facility GINA Cert Anticipated Discharge Date: Discharge Date: Expected LOS: Initial Reviewer: [email or web address] Initial Review Date: 04/24/2020 Generated: 04/26/20 5:58 pm Comments DCP- Discharge Planning Updated by [email or web address]: Maryse Simpson on 04/26/20 3:[address] Patient Name: CHON LUI Admission Status: ER Accout number: [id number] Admission Date: 04-24-2020 : 1950 Admission Diagnosis: Attending: LUIS Current LOS: 2 Anticipated DC Date: Planned Disposition: Nursing Facility GINA Cert Primary Insurance: MEDICARE A & B Discharge Planning Comments: Patient lives at [facility] in a termite exterminator helper bed. I called Tomás and he states they will take her back when ready for discharge. I informed him that it may be on Wednesday and he states that is fine. CM will continue to follow and assist with discharge planning/needs. Gang Knife Fish Chopper: Maryse Calvin Patient Name: CHON LUI Page [phone] at 1658 All edits/amendments must be made on the electronic document DICTATION DATE: 04/26/201657 PAYER SPECIALIST: NAHUN 04/26/201657 RPT#: [id number] DC DATE: STATUS: ADM IN [facility] [address] [place] [address] END OF REPORT
--- NOTE | 2020-04-26 20:34 | NUR ---
RECIEVED UP IN BED WITH EYES OPEN AND TV ON. ALERT AND ORIETNED X4. O2@ 5 LITERS PER TRACH COLLAR. NO IV AT THIS TIME. NEW ORDER TO HOLD PEG TUBE FEEDINGS AND FLUSHES UNTIL TUBE REPLACED PER PEPPER PIMENTEL. PT AWARE OF NEW ORDER AND UPSET BECAUSE TUBE LEAKING. WRAPPED WITH TOWEL TO KEEP OFF PT. DENIES ANY NEEDS AT THIS TIME.
[2020-04-26 22:07] VITALS: BP 102/51
[2020-04-27] VITALS (7 sets, daily range): BP systolic 93–130; BP diastolic 40–58; Ht 160 cm; Wt 66.6 kg
[2020-04-27 06:10] LABS: BASOPHILS 0.1 % (0-2); EOSINOPHILS 0.1 % (0-7); HEMATOCRIT 32.7 % (36.0-48.0); HEMOGLOBIN 10.3 g/dL (12-16); IMMATURE GRANULOCYTES 0.3 % (0-5); LYMPHOCYTES 29.4 % (15-50); MCH 27.7 pg (26.0-34.0); MCHC 31.5 g/dL (31.0-37.0); MCV 87.9 fL (80.0-100.0); MONOCYTES 10.2 % (2-11); NEUTROPHILS 59.9 % (40-80); PLATELET COUNT 286 10x3/uL (130-400); RBC 3.72 10x6/uL (4.00-5.40); RDW 14.4 % (11.5-14.5); WBC 6.8 10x3/uL (4.8-10.8)
[2020-04-27 06:27] LABS: ALBUMIN 2.5 g/dL (3.4-5.0); ALKALINE PHOSPHATASE 78 U/L (30-120); ALT (SGPT) 15 U/L (10-68); BILIRUBIN - TOTAL 0.29 mg/dL (0.2-1.3); CALC OSMOLALITY 280 mosm/kg (275-300); CALCIUM 8.8 mg/dL (8.5-10.1); CARBON DIOXIDE 26.1 mmol/L (21.0-32.0); CHLORIDE - SERUM 104 mmol/L (98-107); CREATININE - SERUM 0.6 mg/dL (0.6-1.3); GLUCOSE 80 mg/dL (74-106); PROTEIN - SERUM 6.9 g/dL (6.4-8.2); SODIUM 139 mmol/L (136-145); UREA NITROGEN 24 mg/dL (7-18); eGFR NON AFRICAN AMERICAN > 90 mL/min (90-120)
[2020-04-27 06:29] LABS: POTASSIUM - SERUM 3.5 mmol/L (3.5-5.1)
--- NOTE | 2020-04-27 07:20 | NUR ---
recieved report no complaints pt resting in bed.
--- NOTE | 2020-04-27 16:09 | NUR ---
pt remains npo d/t malfunctioning Peg tube. Will conitnue to monitor IV fluids infusing as ordered.
--- NOTE | 2020-04-27 18:37 | NUR ---
Suctioned catheter x 2 this shift patient tolerated well.
--- NOTE | 2020-04-27 19:18 | NUR ---
RECIEVED UP IN BED WITH EYES OPENA ND TV ON. ALERT AND ORIETNED X4. REMAINS BEDFAST. IV TO LT FA WITH NS@ 50CC/HR. REMAINS IN DROPLET ISOLATION R/T POSSIBLE MRSA. TRACH WITH DSG INTACT. FEEDING AND FLUSHES ON HOLD AT THIS TIMED/T TUBE SPLIT. DENIES ANY NEEDS AT THIS TIME.
[2020-04-28 02:00] VITALS: BP 111/56
[2020-04-28 05:52] LABS: BASOPHILS 0.1 % (0-2); EOSINOPHILS 0.7 % (0-7); HEMATOCRIT 34.1 % (36.0-48.0); HEMOGLOBIN 10.7 g/dL (12-16); IMMATURE GRANULOCYTES 1.3 % (0-5); LYMPHOCYTES 14.2 % (15-50); MCH 27.8 pg (26.0-34.0); MCHC 31.4 g/dL (31.0-37.0); MCV 88.6 fL (80.0-100.0); MEAN PLATELET VOLUME 8.6 fL (7.4-10.4); MONOCYTES 2.3 % (2-11); NEUTROPHILS 81.4 % (40-80); PLATELET COUNT 261 10x3/uL (130-400); RBC 3.85 10x6/uL (4.00-5.40); RDW 14.3 % (11.5-14.5); WBC 6.8 10x3/uL (4.8-10.8)
--- NOTE | 2020-04-28 05:56 | NUR ---
WAITING FOR VANC TROUGH TO BE DRAWN TO START VANC.
[2020-04-28 06:07] LABS: ALBUMIN 2.4 g/dL (3.4-5.0); ALKALINE PHOSPHATASE 78 U/L (30-120); ALT (SGPT) 13 U/L (10-68); BILIRUBIN - TOTAL 0.38 mg/dL (0.2-1.3); CALC OSMOLALITY 273 mosm/kg (275-300); CALCIUM 8.3 mg/dL (8.5-10.1); CARBON DIOXIDE 25.8 mmol/L (21.0-32.0); CHLORIDE - SERUM 104 mmol/L (98-107); CREATININE - SERUM 0.6 mg/dL (0.6-1.3); GLUCOSE 79 mg/dL (74-106); MAGNESIUM - SERUM 2.1 mg/dL (1.8-2.4); PHOSPHOROUS 3.3 mg/dL (2.5-4.9); POTASSIUM - SERUM 4.3 mmol/L (3.5-5.1); PROTEIN - SERUM 6.7 g/dL (6.4-8.2); SODIUM 135 mmol/L (136-145); UREA NITROGEN 27 mg/dL (7-18); VANCOMYCIN - TROUGH 11.3 ug/mL (10.0-20.0); eGFR NON AFRICAN AMERICAN > 90 mL/min (90-120)
[2020-04-28 06:19] VITALS: BP 104/45
[2020-04-28 08:12] VITALS: BP 89/38
[2020-04-28 11:40] VITALS: BP 93/39
[2020-04-28 15:00] VITALS: BP 101/40
[2020-04-28 20:00] VITALS: BP 104/38
--- NOTE | 2020-04-28 20:05 | NUR ---
REPORT RECEIVED, WILL CONT POC. PT A&O, UP IN BED ON PHONE. NO S/S OF DISTRESS OBSERVED. RR EVEN AND UNLABORED. PT DENIES NEEDS AT THIS TIME. BED LOCKED AND LOWERED, CALL LIGHT IN REACH. ASSESSMENT COMPLETED AT THIS TIME. WILL CONT TO MONITOR.
[2020-04-29] VITALS: BP 131/56
--- NOTE | 2020-04-29 02:38 | NUR ---
PTS IV INFILTRATED. ATTEMPTED TO PLACE NEW IV ACCESS X3. ORDER FOR VASCULAR ACCESS NURSE ACTIVE.
[2020-04-29 04:00] VITALS: BP 110/43
--- NOTE | 2020-04-29 05:05 | NUR ---
PT REFUSES TO KEEP CPAP ON. STATES SOMETHING IS WRONG WITH THE MASK. NOTIFIED RT A SECOND TIME. ONCE AGAIN, RT STATES THEY WILL COME HELP PT.
[2020-04-29 05:28] LABS: BASOPHILS 0 % (0-2); EOSINOPHILS 0 % (0-7); HEMATOCRIT 33.3 % (36.0-48.0); HEMOGLOBIN 10.3 g/dL (12-16); IMMATURE GRANULOCYTES 0.6 % (0-5); LYMPHOCYTES 13.4 % (15-50); MCH 27.3 pg (26.0-34.0); MCHC 30.9 g/dL (31.0-37.0); MCV 88.3 fL (80.0-100.0); MEAN PLATELET VOLUME 8.7 fL (7.4-10.4); MONOCYTES 4.5 % (2-11); NEUTROPHILS 81.5 % (40-80); PLATELET COUNT 290 10x3/uL (130-400); RBC 3.77 10x6/uL (4.00-5.40); RDW 14.3 % (11.5-14.5)
[2020-04-29 06:05] LABS: ALBUMIN 2.3 g/dL (3.4-5.0); ALKALINE PHOSPHATASE 75 U/L (30-120); ALT (SGPT) 15 U/L (10-68); BILIRUBIN - TOTAL 0.27 mg/dL (0.2-1.3); CALC OSMOLALITY 275 mosm/kg (275-300); CALCIUM 8.1 mg/dL (8.5-10.1); CARBON DIOXIDE 22.9 mmol/L (21.0-32.0); CHLORIDE - SERUM 104 mmol/L (98-107); CREATININE - SERUM 0.7 mg/dL (0.6-1.3); POTASSIUM - SERUM 4.5 mmol/L (3.5-5.1); PROTEIN - SERUM 6.6 g/dL (6.4-8.2); SODIUM 136 mmol/L (136-145); UREA NITROGEN 29 mg/dL (7-18); eGFR NON AFRICAN AMERICAN 88 mL/min (90-120)
[2020-04-29 06:10] LABS: GLUCOSE 65 mg/dL (74-106)
[2020-04-29 07:26] VITALS: BP 109/39
[2020-04-29 11:56] VITALS: BP 101/42
--- NOTE | 2020-04-29 12:23 | MORECARE ---
CASE MANAGEMENT DISCHARGE SUMMARY PATIENT: CHON LUI UNIT: [id number] ADM DATE: 04/24/20 AGE: 69 : 50 SEX: F ROOM/BED: D.2101 AUTHOR: NATALIA HEALY PHYSICIAN: REFERRING PHYSICIAN: BRICE CHILD MD DATE OF SERVICE: 04/29/20 Discharge Plan Patient Name: CHON LUI Facility: [facility]:[place] : 1950 Planned Disposition: Nursing Facility [facility] Cert Anticipated Discharge Date: Discharge Date: Expected LOS: Initial Reviewer: [email or web address] Initial Review Date: 04/24/2020 Generated: 04/29/20 1:22 pm Comments DCP- Discharge Planning Updated by [email or web address]: [place] Cagle on 04/29/20 11:[address] CM called patient's daughter, Tanna Gaffney @[phone], regarding DC plans for her mother. left with my contact information. Await CB. DCP- Discharge Planning Updated by [email or web address]: Maryse Simpson on 04/26/20 3:[address] Patient Name: CHON LUI Admission Status: ER Accout number: [id number] Admission Date: 04-24-2020 : 1950 Admission Diagnosis: Attending: LUIS Current LOS: 2 Anticipated DC Date: Planned Disposition: Nursing Facility [facility] Cert Primary Insurance: MEDICARE A & B Discharge Planning Comments: Patient lives at [facility] in a superintendent container terminal bed. I called Tomás and he states they will take her back when ready for discharge. I informed him that it may be on Wednesday and he states that is fine. CM will continue to follow and assist with discharge planning/needs. Road Oiling Truck Driver: Maryse Calvin Last DP export: 04/26/20 3:58 p Patient Name: CHON LUI Page 74667 at 1223 All edits/amendments must be made on the electronic document DICTATION DATE: 04/29/20 1222 ORCHESTRA MUSICIAN: NAHUN 04/29/20 1222 RPT#: [id number] DC DATE: STATUS: ADM IN [facility] [address] [place] [address] END OF REPORT
--- NOTE | 2020-04-29 14:04 | MORECARE ---
CASE MANAGEMENT DISCHARGE SUMMARY PATIENT: CHON LIU UNIT: [id number] ADM DATE: 04/24/20 AGE: 69 : 50 SEX: F ROOM/BED: D.9586 AUTHOR: MONET,DOC PHYSICIAN: REFERRING PHYSICIAN: BRICE CHILD MD DATE OF SERVICE: 04/29/20 Discharge Plan Patient Name: CHON LUI Facility: [facility]:[place] : 1950 Planned Disposition: Nursing Facility [facility] Cert Anticipated Discharge Date: Discharge Date: Expected LOS: Initial Reviewer: [email or web address] Initial Review Date: 04/24/2020 Generated: 04/29/20 3:04 pm Comments DCP- Discharge Planning Updated by [email or web address]: [place] Cagle on 04/29/20 12:[address] 1355: CM was able to reach the patient's son-in-law, Gen Gaffney and he verifies that the patient will return to [facility], upon DC. Gen sates that his , Tanna is at work and unable to answer her phone. CM called patient's daughter, Tanna Gaffney @[phone], regarding DC plans for her mother. VM left with my contact information. Await CB. DCP- Discharge Planning Updated by [email or web address]: Maryse Simpson on 04/26/20 3:[address] Patient Name: CHON LUI Admission Status: ER Accout number: [id number] Admission Date: 04-24-2020 : 1950 Admission Diagnosis: Attending: LUIS Current LOS: 2 Anticipated DC Date: Planned Disposition: Nursing Facility [facility] Cert Primary Insurance: MEDICARE A & B Discharge Planning Comments: Patient lives at [facility] in a half-way bed. I called Tomás and he states they will take her back when ready for discharge. I informed him that it may be on Wednesday and he states that is fine. CM will continue to follow and assist with discharge planning/needs. Experimental Welder: Maryse Simpson DCPIA - Discharge Planning Initial Assessment Updated by [email or web address]: [place] Cagle on 04/29/20 2:02 pm * How many steps to enter\exit or inside your home? * PCP Dr. Armendariz * Pharmacy [facility] provides * Preadmission Environment Halfway Acute Care Facility * Facility Name [facility] Nursing[facility]Rehab * List name and contact numbers for known caregivers / representatives who currently or will assist patient after discharge: Tanna Gaffney (dtr) cell [phone] Gen gaffney (S-I-L) [phone] * Community resources currently utilized None * Please name any agencies selected above. NA * Additional services required to return to the preadmission environment? No * Can the patient safely return to the preadmission environment? Yes * Has this patient been hospitalized within the prior 30 days at any hospital? No Last DP export: 04/29/20 11:23 a Patient Name: CHON LUI Page 03596 at 1404 All edits/amendments must be made on the electronic document DICTATION DATE: 04/29/20 140 DEVIL DOG: NAHUN 04/29/20 1404 RPT#: [id number] DC DATE: STATUS: ADM IN [facility] [address] [place] [address] END OF REPORT
--- NOTE | 2020-04-29 14:13 | MORECARE ---
CASE MANAGEMENT DISCHARGE SUMMARY PATIENT: CHON LUI UNIT: [id number] ADM DATE: 04/24/20 AGE: 69 : 50 SEX: F ROOM/BED: D.2107 AUTHOR: MONET,DOC PHYSICIAN: REFERRING PHYSICIAN: BRICE CIHLD MD DATE OF SERVICE: 04/29/20 Discharge Plan Patient Name: CHON LUI Facility: [facility]:[place] : 1950 Planned Disposition: Nursing Facility [facility] Cert Anticipated Discharge Date: Discharge Date: Expected LOS: Initial Reviewer: [email or web address] Initial Review Date: 04/24/2020 Generated: 04/29/20 3:12 pm Comments DCP- Discharge Planning Updated by [email or web address]: [place] Cagle on 04/29/20 1:[address] 1355: CM was able to reach the patient's son-in-law, Gen Gaffney and he verifies that the patient will return to [facility], upon DC. Gen sates that his , Tanna is at work and unable to answer her phone. Verified with Loyda, with [facility] ([phone]) that patient is a resident of their facility. CM called patient's daughter, Tanna Gaffney @[phone], regarding DC plans for her mother. VM left with my contact information. Await CB. DCP- Discharge Planning Updated by [email or web address]: Maryse Simpson on 04/26/20 3:[address] Patient Name: CHON LUI Admission Status: ER Accout number: [id number] Admission Date: 04-24-2020 : 1950 Admission Diagnosis: Attending: LUIS Current LOS: 2 Anticipated DC Date: Planned Disposition: Nursing Facility [facility] Cert Primary Insurance: MEDICARE A & B Discharge Planning Comments: Patient lives at [facility] in a termite inspector bed. I called Tomás and he states they will take her back when ready for discharge. I informed him that it may be on Wednesday and he states that is fine. CM will continue to follow and assist with discharge planning/needs. Facility Security Officer: Maryse Simpson DCPIA - Discharge Planning Initial Assessment Updated by [email or web address]: [place] Cagle on 04/29/20 2:02 pm * How many steps to enter\exit or inside your home? * PCP Dr. Armendariz * Pharmacy [facility] provides * Preadmission Environment Prison Acute Care Facility * Facility Name [facility] Nursing/Rehab * List name and contact numbers for known caregivers / representatives who currently or will assist patient after discharge: Tanna (dtr) cell [phone] Gen gaffney (S-I-L) [phone] * Community resources currently utilized None * Please name any agencies selected above. NA * Additional services required to return to the preadmission environment? No * Can the patient safely return to the preadmission environment? Yes * Has this patient been hospitalized within the prior 30 days at any hospital? No Last DP export: 04/29/20 1:04 p Patient Name: CHON LUI Page 19756 at 1413 All edits/amendments must be made on the electronic document DICTATION DATE: 04/29/201411 PATCH SETTER: NAHUN 04/29/20 141 RPT#: [id number] DC DATE: STATUS: ADM IN [facility] [address] [place] [address] END OF REPORT
[2020-04-29 16:12] VITALS: BP 103/46
[2020-04-29 20:00] VITALS: BP 114/47
--- NOTE | 2020-04-29 20:15 | NUR ---
REPORT RECEIVED, WILL CONT POC. PT A&O, UP IN BED WATCHING TV. PT REPORTS HAVING A BM, CHANGED AND CLEANED PT AND APPLIED NEW BEDDING. NO S/S OF DISTRESS OBSERVED. RR EVEN AND UNLABORED ON 9 L AND 40% TRACH COLLAR. PT DENIES FURTHER NEEDS AT THIS TIME. BED LOCKED AND LOWERED, CALL LIGHT IN REACH. ASSESSMENT COMPLETED AT THIS TIME. WILL CONT TO MONITOR.
[2020-04-30 04:00] VITALS: BP 113/47
[2020-04-30 06:18] LABS: BASOPHILS 0 % (0-2); EOSINOPHILS 0 % (0-7); HEMATOCRIT 31.9 % (36.0-48.0); IMMATURE GRANULOCYTES 0.5 % (0-5); LYMPHOCYTES 12.3 % (15-50); MCH 27.5 pg (26.0-34.0); MCHC 31.3 g/dL (31.0-37.0); MCV 87.6 fL (80.0-100.0); MEAN PLATELET VOLUME 8.4 fL (7.4-10.4); MONOCYTES 1.1 % (2-11); NEUTROPHILS 86.1 % (40-80); PLATELET COUNT 245 10x3/uL (130-400); RBC 3.64 10x6/uL (4.00-5.40); RDW 14.4 % (11.5-14.5); WBC 5.7 10x3/uL (4.8-10.8)
[2020-04-30 06:35] LABS: ALBUMIN 2.2 g/dL (3.4-5.0); ALKALINE PHOSPHATASE 71 U/L (30-120); ALT (SGPT) 16 U/L (10-68); BILIRUBIN - TOTAL 0.28 mg/dL (0.2-1.3); CALCIUM 7.7 mg/dL (8.5-10.1); CHLORIDE - SERUM 105 mmol/L (98-107); CREATININE - SERUM 0.6 mg/dL (0.6-1.3); MAGNESIUM - SERUM 1.8 mg/dL (1.8-2.4); PHOSPHOROUS 2.5 mg/dL (2.5-4.9); POTASSIUM - SERUM 3.9 mmol/L (3.5-5.1); PROTEIN - SERUM 6.2 g/dL (6.4-8.2); SODIUM 133 mmol/L (136-145); eGFR NON AFRICAN AMERICAN > 90 mL/min (90-120)
[2020-04-30 06:37] LABS: CALC OSMOLALITY 268 mosm/kg (275-300); GLUCOSE 101 mg/dL (74-106); UREA NITROGEN 21 mg/dL (7-18)
[2020-04-30 07:00] VITALS: BP 127/49
--- NOTE | 2020-04-30 09:30 | NUR ---
0.5 CAN OF JEVITY GIVEN PER PT'S REQUEST. COMPLETE BED BATH GIVEN AND LINEN CHANGE DONE. BRUSHED PT'S HAIR. WILL SPEAK WITH MANAGER UTILIZATION MANAGEMENT ABOUT TF.
--- NOTE | 2020-04-30 10:12 | NUR ---
SPOKE WITH NURSE RECRUITER AND SHE STATES TO RESUME TF ORDERED BUT WE CAN START AT A LOWER RATE SO PT WILL BE ABLE TOLERATE TF. I VERBALIZED UNDERSTANDING.
[2020-04-30 11:00] VITALS: BP 105/44
--- NOTE | 2020-04-30 12:34 | NUR ---
Nutrition Follow-up: Nursing reports pt had diarrhea following TF last night. Noted pt given 1/2 can this AM. Discussed resuming TF per previous order as tolerated with nurse. Also discussed with IDT. Diet: Jevity 1.5 - goal rate 40 mL/hr + H2O 25 mL q hr Wt: 146.6# (04/25) Labs noted: Na 133, Ca 7.7, Alb 2.2 Meds noted: Florajen, Protonix, NS @ 50, electrolyte protocol -Resume TF as tolerated - goal rate 40 mL/hr. -Need new wt; noted daily wts ordered. -RD following.
[2020-04-30 14:00] VITALS: BP 104/42
--- NOTE | 2020-04-30 15:11 | OP ---
PATIENT NAME: CHON LUI MEDICAL RECORD: [id number] :[birth year] LOCATION:D.M2 D.2108 ADMISSION DATE:04/24/20 SURGEON: ETRRY RITTER MD DATE OF OPERATION: 04/28/2020 PREOPERATIVE DIAGNOSIS: Malfunctioning gastrostomy tube in a patient that is G-tube dependent for feedings. POSTOPERATIVE DIAGNOSIS: Malfunctioning gastrostomy tube in a patient that is G-tube dependent for feedings. PROCEDURE: Gastrostomy tube change out, 22-Moldovan. SURGEON: Terry Ritter MD YARDER PUNCHER: None. BLOOD LOSS: Zero. The patient's current gastrostomy tube has tubing that is split and is nonfunctional. OPERATIVE COURSE: The patient was seen at her bedside. The current gastrostomy tube balloon was deflated in its entirety. The gastrostomy tube was removed. I then prepped the area with Betadine. There was a pyogenic granuloma at the gastrocutaneous stoma and I told the patient that this is a normal finding with gastrostomy tubes. I then tested the balloon on a 22-Moldovan gastrostomy tube. The balloon was patent. I deflated the balloon. It was lubricated with K-Y jelly and inserted down through the gastrocutaneous stoma and then inflated. I then pushed the flange down against the abdominal wall. I am going to obtain a followup KUB with dye. If this dye study reveals intragastric placement of the gastrostomy tube, then we can begin using the gastrostomy tube for feedings. TRANSINT:[id number] Voice Confirmation ID: [id number] DOCUMENT ID: [id number] TERRY RITTER MD at 1511 CC: [id number] DICTATION DATE: 04/29/20 1423 FITNESS ASSISTANT: 04/30/20 0111 ADM IN [facility] [address] [place] [address]
--- NOTE | 2020-04-30 17:11 | NUR ---
0.5 JEVITY GIVEN VIA BOLUS WITH 110ML OF WATER. PT HAS TOLERATED THIS WELL. PT STATES SHE HAS NO FURTHER NEEDS AT THIS TIME. BED LOW. CL IN REACH.
--- NOTE | 2020-04-30 17:45 | NUR ---
I have reviewed this patient and I concur with the Shift Assessment completed by the Licensed Practical Nurse today this shift.
[2020-04-30 20:00] VITALS: BP 107/45
--- NOTE | 2020-04-30 20:00 | NUR ---
REPORT RECEIVED, WILL CONT POC. PT A&O, UP IN BED RESTING. NO S/S OF DISTRESS OBSERVED. RR EVEN AND UNLABORED ON 9L. PT REQUESTED BRIEF CHANGED, CLEANED AND CHANGED PT. PT DENIES OTHER NEEDS AT THIS TIME. BED LOCKED AND LOWERED. CALL LIGHT IN REACH. ASSESSMENT COMPLETED AT THIS TIME. WILL CONT TO MONITOR.
[2020-05-01 04:00] VITALS: BP 104/46
[2020-05-01 06:02] LABS: BASOPHILS 0 % (0-2); EOSINOPHILS 0 % (0-7); HEMATOCRIT 32.3 % (36.0-48.0); HEMOGLOBIN 10.1 g/dL (12-16); IMMATURE GRANULOCYTES 0.6 % (0-5); LYMPHOCYTES 19.3 % (15-50); MCH 27.4 pg (26.0-34.0); MCHC 31.3 g/dL (31.0-37.0); MCV 87.8 fL (80.0-100.0); MEAN PLATELET VOLUME 8.8 fL (7.4-10.4); MONOCYTES 2.1 % (2-11); PLATELET COUNT 253 10x3/uL (130-400); RBC 3.68 10x6/uL (4.00-5.40); RDW 14.8 % (11.5-14.5); WBC 5.2 10x3/uL (4.8-10.8)
[2020-05-01 06:16] LABS: CALC OSMOLALITY 270 mosm/kg (275-300); CALCIUM 7.9 mg/dL (8.5-10.1); CARBON DIOXIDE 25.8 mmol/L (21.0-32.0); CHLORIDE - SERUM 105 mmol/L (98-107); CREATININE - SERUM 0.6 mg/dL (0.6-1.3); GLUCOSE 100 mg/dL (74-106); MAGNESIUM - SERUM 1.9 mg/dL (1.8-2.4); POTASSIUM - SERUM 3.9 mmol/L (3.5-5.1); SODIUM 135 mmol/L (136-145); eGFR NON AFRICAN AMERICAN > 90 mL/min (90-120)
[2020-05-01 06:17] LABS: UREA NITROGEN 15 mg/dL (7-18)
--- NOTE | 2020-05-01 07:20 | MORECARE ---
CASE MANAGEMENT DISCHARGE SUMMARY PATIENT: CHON LUI UNIT: [id number] ADM DATE: 04/24/20 AGE: 69 : 50 SEX: F ROOM/BED: D.4320 AUTHOR: MONET,DOC PHYSICIAN: REFERRING PHYSICIAN: BRICE CHILD MD DATE OF SERVICE: 05/01/20 Discharge Plan Patient Name: CHON LUI Facility: [facility]:[place] : 1950 Planned Disposition: Nursing Facility [facility] Cert Anticipated Discharge Date: Discharge Date: Expected LOS: Initial Reviewer: [email or web address] Initial Review Date: 04/24/2020 Generated: 05/01/20 8:20 am Comments DCP- Discharge Planning Updated by [email or web address]: Maryse Simpson on 05/01/20 6:[address] CM spoke with Tomás, liaison for [facility], about possible discharge or Wednesday. He states patient is on 4 liters of oxygen at the facility, but they are able to accept the patient on 6 liters of oxygen. CM will continue to follow and assist with discharge planning/needs. DCP- Discharge Planning Updated by [email or web address]: [place] Cagle on 04/29/20 1:[address] 1355: CM was able to reach the patient's son-in-law, Gen Gaffney and he verifies that the patient will return to [facility], upon DC. Gen sates that his , Tanna is at work and unable to answer her phone. Verified with Loyda, with [facility] ([phone]) that patient is a resident of their facility. CM called patient's daughter, Tanna Gaffney @[phone], regarding DC plans for her mother. left with my contact information. Await CB. DCP- Discharge Planning Updated by [email or web address]: Maryse Simpson on 04/26/20 3:[address] Patient Name: CHON LUI Admission Status: ER Accout number: [id number] Admission Date: 04-24-2020 : 1950 Admission Diagnosis: Attending: LUIS Current LOS: 2 Anticipated DC Date: Planned Disposition: Nursing Facility [facility] Cert Primary Insurance: MEDICARE A & B Discharge Planning Comments: Patient lives at [facility] in a halfway bed. I called Tomás and he states they will take her back when ready for discharge. I informed him that it may be on Wednesday and he states that is fine. CM will continue to follow and assist with discharge planning/needs. Orange Picker: Maryse Simpson DCPIA - Discharge Planning Initial Assessment Updated by [email or web address]: [place] Cagle on 04/29/20 2:02 pm * How many steps to enter\exit or inside your home? * PCP Dr. Armendariz * Pharmacy [facility] provides * Preadmission Environment Creative Services Writer Acute Care Facility * Facility Name [facility] Nursing/Rehab * List name and contact numbers for known caregivers / representatives who currently or will assist patient after discharge: Tanna Gaffney (dtr) cell [phone] Gen gaffney (S-I-L) [phone] * Community resources currently utilized None * Please name any agencies selected above. NA * Additional services required to return to the preadmission environment? No * Can the patient safely return to the preadmission environment? Yes * Has this patient been hospitalized within the prior 30 days at any hospital? No Last DP export: 04/29/20 1:13 p Patient Name: CHON LUI Page 21039 at 0720 All edits/amendments must be made on the electronic document DICTATION DATE: 05/01/20719 ELEVATOR OPERATOR SERVICE: NAHUN 05/01/20719 RPT#: [id number] DC DATE: STATUS: ADM IN [facility] [address] [place] [address] END OF REPORT
--- NOTE | 2020-05-01 07:27 | MORECARE ---
CASE MANAGEMENT DISCHARGE SUMMARY PATIENT: CHON LUI UNIT: [id number] ADM DATE: 04/24/20 AGE: 69 : 50 SEX: F ROOM/BED: D.0854 AUTHOR: MONET,DOC PHYSICIAN: REFERRING PHYSICIAN: BRICE CHILD MD DATE OF SERVICE: 05/01/20 Discharge Plan Patient Name: CHON LUI Facility: [facility]:[place] : 1950 Planned Disposition: Nursing Facility [facility] Cert Anticipated Discharge Date: Discharge Date: Expected LOS: Initial Reviewer: [email or web address] Initial Review Date: 04/24/2020 Generated: 05/01/20 8:26 am Comments DCP- Discharge Planning Updated by [email or web address]: Maryse Simpson on 05/01/20 6:[address] CM spoke with Tomás, liaison for [facility], about possible discharge or Wednesday. He states patient is on 4 liters of oxygen at the facility, but they are able to accept the patient on 6 liters of oxygen. CM will continue to follow and assist with discharge planning/needs. DCP- Discharge Planning Updated by [email or web address]: [place] Cagle on 04/29/20 1:[address] 1355: CM was able to reach the patient's son-in-law, Gen Gaffney and he verifies that the patient will return to [facility], upon DC. Gen sates that his , Tanna is at work and unable to answer her phone. Verified with Loyda, with [facility] ([phone]) that patient is a resident of their facility. CM called patient's daughter, Tanna Gaffney @[phone], regarding DC plans for her mother. left with my contact information. Await CB. DCP- Discharge Planning Updated by [email or web address]: Maryse Simpson on 04/26/20 3:[address] Patient Name: CHON LUI Admission Status: ER Accout number: [id number] Admission Date: 04-24-2020 : 1950 Admission Diagnosis: Attending: LUIS Current LOS: 2 Anticipated DC Date: Planned Disposition: Nursing Facility [facility] Primary Insurance: MEDICARE A & B Discharge Planning Comments: Patient lives at [facility] in a nursing home bed. I called Tomás and he states they will take her back when ready for discharge. I informed him that it may be on Wednesday and he states that is fine. CM will continue to follow and assist with discharge planning/needs. Flare Maker: Maryse Simpson DCPIA - Discharge Planning Initial Assessment Updated by [email or web address]: [place] Cagle on 04/29/20 2:02 pm * How many steps to enter\exit or inside your home? * PCP Dr. Armendariz * Pharmacy [facility] provides * Preadmission Environment Assistant Passenger Locomotive Engineer Acute Care Facility * Facility Name [facility] Nursing/Rehab * List name and contact numbers for known caregivers / representatives who currently or will assist patient after discharge: Tanna Gaffney (dtr) cell [phone] Gen gaffney (S-I-L) [phone] * Community resources currently utilized None * Please name any agencies selected above. NA * Additional services required to return to the preadmission environment? No * Can the patient safely return to the preadmission environment? Yes * Has this patient been hospitalized within the prior 30 days at any hospital? No External Providers External Provider: [facility] Next Contact Date: Service Request Date: Service Type: Resolution: Reviewer: Comments: Last DP export: 05/01/20 6:20 a Patient Name: CHON LUI Page 92422 at 0727 All edits/amendments must be made on the electronic document DICTATION DATE: 05/01/20725 SOCIAL MEDIA EXECUTIVE: NAHUN 05/01/20725 RPT#: [id number] DC DATE: STATUS: ADM IN [facility] [address] [place] [address] END OF REPORT
[2020-05-01 07:59] VITALS: BP 120/39
--- NOTE | 2020-05-01 09:15 | NUR ---
turned o2 down to 8l o2 sat 94% will continue to monitor.
--- NOTE | 2020-05-01 09:24 | NUR ---
PEG TUBE SITE DRESSING CHANGED.
--- NOTE | 2020-05-01 09:28 | NUR ---
TURNED O2 DOWN TO 7L O2 SAT AT 97% WILL CONTINUE TO MONITOR.
--- NOTE | 2020-05-01 09:35 | NUR ---
GAVE BOLUS OF 0.5 CAN OF JEVITY 1.5 AND 120ML OF H20. PT TOLERATED WELL. WILL CONTINUE TO MONITOR. PT STATES SHE HAS NO FURTHER NEEDS AT THIS TIME. BED LOW. CL IN REACH.
[2020-05-01 11:35] VITALS: BP 105/50
--- NOTE | 2020-05-01 11:35 | NUR ---
WEANED 02 DOWN TO 5L O2 SAT 100%.
--- NOTE | 2020-05-01 11:39 | NUR ---
I have reviewed this patient and I concur with the Shift Assessment completed by the Licensed Practical Nurse today this shift.
--- NOTE | 2020-05-01 16:12 | NUR ---
GAVE BOLUS OF 0.5 CAN OF JEVITY 1.5 AND 60ML OF H20.
--- NOTE | 2020-05-01 16:19 | NUR ---
RESPIRATORY THERAPY SUCTIONED TRACH.
--- NOTE | 2020-05-01 18:21 | NUR ---
O2 WEANED TO 4L VIA TRACH COLLAR. O2 SAT 98%.
[2020-05-01 18:22] VITALS: BP 114/49
[2020-05-01 20:00] VITALS: BP 101/36
--- NOTE | 2020-05-01 20:30 | NUR ---
PT IN BED, AAO X 3, RESP EVEN AND UNLABORED. NO DISTRESS NOTED, CL N REACH, SR UP X 2.
[2020-05-02] VITALS: BP 105/50; BP 106/37
[2020-05-02 06:04] LABS: BASOPHILS 0 % (0-2); EOSINOPHILS 0 % (0-7); HEMOGLOBIN 9.9 g/dL (12-16); IMMATURE GRANULOCYTES 0.7 % (0-5); LYMPHOCYTES 18.3 % (15-50); MCH 27.4 pg (26.0-34.0); MCHC 30.9 g/dL (31.0-37.0); MCV 88.6 fL (80.0-100.0); MEAN PLATELET VOLUME 8.8 fL (7.4-10.4); MONOCYTES 2.2 % (2-11); NEUTROPHILS 78.8 % (40-80); PLATELET COUNT 251 10x3/uL (130-400); RBC 3.61 10x6/uL (4.00-5.40); RDW 14.8 % (11.5-14.5); WBC 4.6 10x3/uL (4.8-10.8)
[2020-05-02 06:43] LABS: CALC OSMOLALITY 274 mosm/kg (275-300); CARBON DIOXIDE 26.8 mmol/L (21.0-32.0); CHLORIDE - SERUM 104 mmol/L (98-107); CREATININE - SERUM 0.6 mg/dL (0.6-1.3); GLUCOSE 101 mg/dL (74-106); POTASSIUM - SERUM 3.8 mmol/L (3.5-5.1); SODIUM 137 mmol/L (136-145); UREA NITROGEN 15 mg/dL (7-18); VANCOMYCIN - RANDOM 17.8 ug/mL (10.0-20.0); eGFR NON AFRICAN AMERICAN > 90 mL/min (90-120)
[2020-05-02 07:50] VITALS: BP 88/45
[2020-05-02 11:42] VITALS: BP 91/37
--- NOTE | 2020-05-02 12:44 | NUR ---
Nutrition Follow-up: Spoke with nursing & WELDING ENGINEER this AM re: gravity TF 2/2 pump bags unavailable and limited tolerance of bolus feeds. Diet: Jevity 1.5 - goal rate 40 mL/hr + H2O flushes 25 mL q hr No new wt; last wt: 146.6# (04/25) Labs noted: Ca 8.0 Meds noted: Florajen, Protonix, electrolyte protocol -Order placed to start gravity TF (Jevity 1.5) @ 2 drips per 15 seconds (~25 mL/hr) and if tolerated increase to 3 drips per 15 seconds (~50 mL/hr) + H2O flushes 100 mL q 4 hrs. -Need new wt; noted daily wts ordered. -RD following.
--- NOTE | 2020-05-02 13:03 | MORECARE ---
CASE MANAGEMENT DISCHARGE SUMMARY PATIENT: CHON LUI UNIT: [id number] ADM DATE: 04/24/20 AGE: 69 : 50 SEX: F ROOM/BED: D.2102 AUTHOR: MONET,DOC PHYSICIAN: REFERRING PHYSICIAN: BRICE CHILD MD DATE OF SERVICE: 05/02/20 Discharge Plan Patient Name: CHON LUI Facility: [facility]:[place] : 1950 Planned Disposition: Nursing Facility [facility] Cert Anticipated Discharge Date: Discharge Date: Expected LOS: Initial Reviewer: [email or web address] Initial Review Date: 04/24/2020 Generated: 05/02/20 2:03 pm Comments DCP- Discharge Planning Updated by [email or web address]: Maryse Simpson on 05/02/20 11:[address] Updated notes faxed to [facility] and I informed them to anticipate discharge tomorrow. DCP- Discharge Planning Updated by [id number]: Maryse Simpson on 05/01/20 6:[address] CM spoke with Tomás, liaison for [facility], about possible discharge or Wednesday. He states patient is on 4 liters of oxygen at the facility, but they are able to accept the patient on 6 liters of oxygen. CM will continue to follow and assist with discharge planning/needs. DCP- Discharge Planning Updated by [email or web address]: [place] Cagle on 04/29/20 1:[address] 1355: CM was able to reach the patient's son-in-law, Gen Gaffney and he verifies that the patient will return to [facility], upon DC. Gen sates that his , Tanna is at work and unable to answer her phone. Verified with Loyda, with [facility] [phone]) that patient is a resident of their facility. CM called patient's daughter, Tanna Gaffney @[phone], regarding DC plans for her mother. VM left with my contact information. Await CB. DCP- Discharge Planning Updated by [email or web address]: Maryse Simpson on 04/26/20 3:[address] Patient Name: CHON HU Admission Status: ER Accout number: [id number] Admission Date: 04-24-2020 : 1950 Admission Diagnosis: Attending: LUIS Current LOS: 2 Anticipated DC Date: Planned Disposition: Nursing Facility [facility] Primary Insurance: MEDICARE A & B Discharge Planning Comments: Patient lives at [facility] in a penitentiary bed. I called Tomás and he states they will take her back when ready for discharge. I informed him that it may be on Wednesday and he states that is fine. CM will continue to follow and assist with discharge planning/needs. Hvac Sheet Metal Installer: Maryse Simpson DCPIA - Discharge Planning Initial Assessment Updated by [email or web address]: [place] Cagle on 04/29/20 2:02 pm * How many steps to enter\exit or inside your home? * PCP Dr. Armendariz * Pharmacy [facility] provides * Preadmission Environment Alf Acute Care Facility * Facility Name [facility] Nursing/Rehab * List name and contact numbers for known caregivers / representatives who currently or will assist patient after discharge: Tanna Gaffney (dtr) cell [phone] Gen gaffney (S-I-L) [phone] * Community resources currently utilized None * Please name any agencies selected above. NA * Additional services required to return to the preadmission environment? No * Can the patient safely return to the preadmission environment? Yes * Has this patient been hospitalized within the prior 30 days at any hospital? No Last DP export: 05/01/20 6:27 a Patient Name: CHON LUI Page 31278 at 1303 All edits/amendments must be made on the electronic document DICTATION DATE: 05/02/20 1303 ONLINE MERCHANT: NAHUN 05/02/20 1303 RPT#: [id number] DC DATE: STATUS: ADM IN [facility] [address] [place] [address] END OF REPORT
[2020-05-02 15:00] VITALS: BP 92/40
[2020-05-02 18:02] VITALS: BP 109/42
[2020-05-02 22:51] VITALS: BP 106/35
[2020-05-03 04:00] VITALS: BP 132/59
[2020-05-03 04:50] LABS: BASOPHILS 0 % (0-2); EOSINOPHILS 0.6 % (0-7); HEMATOCRIT 33.6 % (36.0-48.0); HEMOGLOBIN 10.6 g/dL (12-16); IMMATURE GRANULOCYTES 0.6 % (0-5); LYMPHOCYTES 36.4 % (15-50); MCHC 31.5 g/dL (31.0-37.0); MCV 88.9 fL (80.0-100.0); MEAN PLATELET VOLUME 8.8 fL (7.4-10.4); MONOCYTES 8.1 % (2-11); NEUTROPHILS 54.3 % (40-80); PLATELET COUNT 247 10x3/uL (130-400); RBC 3.78 10x6/uL (4.00-5.40); RDW 14.9 % (11.5-14.5); WBC 4.7 10x3/uL (4.8-10.8)
[2020-05-03 05:11] LABS: CALC OSMOLALITY 270 mosm/kg (275-300); CALCIUM 8.2 mg/dL (8.5-10.1); CARBON DIOXIDE 27.3 mmol/L (21.0-32.0); CHLORIDE - SERUM 103 mmol/L (98-107); CREATININE - SERUM 0.5 mg/dL (0.6-1.3); GLUCOSE 75 mg/dL (74-106); POTASSIUM - SERUM 3.6 mmol/L (3.5-5.1); SODIUM 136 mmol/L (136-145); UREA NITROGEN 12 mg/dL (7-18); eGFR NON AFRICAN AMERICAN > 90 mL/min (90-120)
[2020-05-03 07:54] VITALS: BP 94/39
[2020-05-03 11:29] VITALS: BP 109/44
[2020-05-03] MEDS ORDERED: DOXYCYCLINE HY100 M2 PO (13:48)
--- NOTE | 2020-05-03 14:08 | MORECARE ---
CASE MANAGEMENT DISCHARGE SUMMARY PATIENT: CHON LUI UNIT: [id number] ADM DATE: 04/24/20 AGE: 69 : 50 SEX: F ROOM/BED: D.4089 AUTHOR: MONET,DOC PHYSICIAN: REFERRING PHYSICIAN: BRICE CHILD MD DATE OF SERVICE: 05/03/20 Discharge Plan Patient Name: CHON LUI Facility: [facility] : 1950 Planned Disposition: Nursing Facility G[facility] Cert Anticipated Discharge Date: Discharge Date: Expected LOS: Initial Reviewer: [email or web address] Initial Review Date: 04/24/2020 Generated: 05/03/20 3:08 pm Comments DCP- Discharge Planning Updated by [email or web address]: Maryse Simpson on 05/03/20 1:[address] Received discharge order. I called Tomás from [facility] and Tomás states she will be returning to her senior care bed via ambulance. Nurse to call ambulance and call report to [facility] [phone] when ready for discharge. I called her daughter's phone and did not receive an answer and informed her of discharge today back to [facility]. DCP- Discharge Planning Updated by [email or web address]: Maryse Simpson on 05/02/20 11:[address] Updated notes faxed to [facility] and I informed them to anticipate discharge tomorrow. DCP- Discharge Planning Updated by [email or web address]: Maryse Simpson on 05/01/20 6:[address] CM spoke with Tomás, liaison for [facility], about possible discharge or Wednesday. He states patient is on 4 liters of oxygen at the facility, but they are able to accept the patient on 6 liters of oxygen. CM will continue to follow and assist with discharge planning/needs. DCP- Discharge Planning Updated by [email or web address]: Indiana Cagle on 04/29/20 1:[address] 1355: CM was able to reach the patient's son-in-law, Gen Gaffney and he verifies that the patient will return to [facility], upon DC. Gen sates that his , Tanna is at work and unable to answer her phone. Verified with Loyda, with [facility] ([phone]) that patient is a resident of their facility. CM called patient's daughter, Tanna Gaffney @[phone], regarding DC plans for her mother. VM left with my contact information. Await CB. DCP- Discharge Planning Updated by [email or web address]: Maryse Simpson on 04/26/20 3:[address] Patient Name: CHON LUI Admission Status: ER Accout number: [id number] Admission Date: 04-24-2020 : 1950 Admission Diagnosis: Attending: LUIS Current LOS: 2 Anticipated DC Date: Planned Disposition: Nursing Facility [facility] Primary Insurance: MEDICARE A & B Discharge Planning Comments: Patient lives at [facility] in a adjunct faculty for medical terminology bed. I called Tomás and he states they will take her back when ready for discharge. I informed him that it may be on Wednesday and he states that is fine. CM will continue to follow and assist with discharge planning/needs. Spiritual Minister: Maryse Simpson DCPIA - Discharge Planning Initial Assessment Updated by [email or web address]: Indiana Cagle on 04/29/20 2:02 pm * How many steps to enter\exit or inside your home? * PCP Dr. Armendariz * Pharmacy [facility] provides * Preadmission Environment Assisted Acute Care Facility * Facility Name [facility] * List name and contact numbers for known caregivers / representatives who currently or will assist patient after discharge: Tanna Gaffney (dtr) cell [phone] Gen gaffney (S-I-L) [phone] * Community resources currently utilized None * Please name any agencies selected above. NA * Additional services required to return to the preadmission environment? No * Can the patient safely return to the preadmission environment? Yes * Has this patient been hospitalized within the prior 30 days at any hospital? No Coverage Notice Reviewer: [id number] - Maryse Simpson Notice Issued Date-Time: 05/03/2020 13:56 Notice Type: IM Discharge Notice Notice Delivered To: Patient Relationship to Patient: Self Control Systems Engineer Name: Delivery Method: PHONE - Phone Cassandra Days: Prior Verbal Notification: Recipient Understood Notice: Yes Recipient Signature: Med Rec Note Co-signed by Attending: Coverage Notice Comment: IMM explained, given, copy placed in MR Last DP export: 05/02/20 12:03 p Patient Name: CHON LUI Page 22515 at 1408 All edits/amendments must be made on the electronic document DICTATION DATE: 05/03/201407 BARTENDER MANAGER: NAHUN 05/03/201407 RPT#: [id number] DC DATE: STATUS: ADM IN [facility] [address] [place] [address] END OF REPORT
--- NOTE | 2020-05-06 08:52 | MORECARE ---
CASE MANAGEMENT DISCHARGE SUMMARY PATIENT: CHON LUI UNIT: [id number] ADM DATE: 04/24/20 AGE: 69 : 50 SEX: F ROOM/BED: D.1315 AUTHOR: MONET,DOC PHYSICIAN: REFERRING PHYSICIAN: BRICE CHILD MD DATE OF SERVICE: 05/06/20 Discharge Plan Patient Name: CHON LUI Facility: [facility]:[place] : 1950 Planned Disposition: Nursing Facility [facility] Cert Anticipated Discharge Date: Discharge Date: 05/03/2020 Expected LOS: Initial Reviewer: [email or web address] Initial Review Date: 04/24/2020 Generated: 05/06/20 9:52 am Comments DCP- Discharge Planning Updated by [id number]: Maryse Simpson on 05/03/20 1:[address] Received discharge order. 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 Nurse to call ambulance and call report to [facility] [phone] when ready for discharge. I called her daughter's phone and did not receive an answer and informed her of discharge today back to [facility]. DCP- Discharge Planning Updated by [email or web address]: Maryse Simpson on 05/02/20 11:[address] Updated notes faxed to [facility] and I informed them to anticipate discharge tomorrow. DCP- Discharge Planning Updated by [email or web address]: Maryse Simpson on 05/01/20 6:[address] CM spoke with Tomás, liaison for [facility], about possible discharge or Wednesday. He states patient is on 4 liters of oxygen at the facility, but they are able to accept the patient on 6 liters of oxygen. CM will continue to follow and assist with discharge planning/needs. DCP- Discharge Planning Updated by [email or web address]: Indiana Cagle on 04/29/20 1:[address] 1355: CM was able to reach the patient's son-in-law, Gen Gaffney and he verifies that the patient will return to [facility], upon DC. Gen sates that his , Tanna is at work and unable to answer her phone. Verified with Loyda, with [facility] ([phone]) that patient is a resident of their facility. CM called patient's daughter, Tanna Gaffney @[phone], regarding DC plans for her mother. VM left with my contact information. Await CB. DCP- Discharge Planning Updated by [email or web address]: Maryse Simpson on 04/26/20 3:[address] Patient Name: CHON LUI Admission Status: ER Accout number: [id number] Admission Date: 04-24-2020 : 1950 Admission Diagnosis: Attending: LUIS Current LOS: 2 Anticipated DC Date: Planned Disposition: Nursing Facility [facility] Primary Insurance: MEDICARE A & B Discharge Planning Comments: Patient lives at [facility] in a group home bed. I called Tomás and he states they will take her back when ready for discharge. I informed him that it may be on Wednesday and he states that is fine. CM will continue to follow and assist with discharge planning/needs. Mothers Helper: Maryse Simpson DCPIA - Discharge Planning Initial Assessment Updated by [id number]: Indiana Cagle on 04/29/20 2:02 pm * How many steps to enter\exit or inside your home? * PCP Dr. Armendariz * Pharmacy [facility] provides * Preadmission Environment [facility] * Facility Name [facility] * List name and contact numbers for known caregivers / representatives who currently or will assist patient after discharge: Tanna Gaffney (dtr) cell [phone] Gen gaffney (S-I-L) [phone] * Community resources currently utilized None * Please name any agencies selected above. NA * Additional services required to return to the preadmission environment? No * Can the patient safely return to the preadmission environment? Yes * Has this patient been hospitalized within the prior 30 days at any hospital? No Coverage Notice Reviewer: [email or web address] Holly Simpson Notice Issued Date-Time: 05/03/2020 13:56 Notice Type: IM Discharge Notice Notice Delivered To: Patient Relationship to Patient: Self Concessions Manager Name: Delivery Method: PHONE - Phone Cassandra Days: Prior Verbal Notification: Recipient Understood Notice: Yes Recipient Signature: Med Rec Note Co-signed by Attending: Coverage Notice Comment: IMM explained, given, copy placed in MR Last DP export: 05/03/20 1:08 p Patient Name: CHON LUI Page 65204 at 0852 All edits/amendments must be made on the electronic document DICTATION DATE: 05/06/20851 EMERGENCY MEDICAL TECH: NAHUN 05/06/2052 RPT#: [id number] DC DATE:05/03/20 STATUS: DIS IN [facility] [address] [place] [address] END OF REPORT
== END 2020-05-03 16:49 | DRG 871 ==
LOC: D.ER 22:16 → D.EDHOLD 04-24 01:32 → D.M2 04-24 01:32 → D.ICU 04-24 01:55 → D.M2 04-25 14:00
PROVIDERS: Family Medicine; Internal Medicine Pulmonary Disease; ADMIT Family Medicine; ATTEND Family Medicine
PROC: 0D20XUZ Change Feeding Device in Upper Intestinal Tract, External Approach (ICD-10-PCS; principal; 2020-04-28)
DX: A41.9 Sepsis, unspecified organism (principal); R65.21 Severe sepsis with septic shock; J96.21 Acute and chronic respiratory failure with hypoxia; I50.43 Acute on chronic combined systolic (congestive) and diastolic (congestive) heart failure; J15.212 Pneumonia due to Methicillin resistant Staphylococcus aureus; K94.23 Gastrostomy malfunction; N39.0 Urinary tract infection, site not specified; J44.0 Chronic obstructive pulmonary disease with (acute) lower respiratory infection; G72.81 Critical illness myopathy; Y84.9 Medical procedure, unspecified as the cause of abnormal reaction of the patient, or of later complication, without mention of misadventure at the time of the procedure; I25.10 Atherosclerotic heart disease of native coronary artery without angina pectoris; E78.5 Hyperlipidemia, unspecified; I10 Essential (primary) hypertension; K21.9 Gastro-esophageal reflux disease without esophagitis; E05.90 Thyrotoxicosis, unspecified without thyrotoxic crisis or storm; I11.0 Hypertensive heart disease with heart failure; D64.9 Anemia, unspecified; F32.9 Major depressive disorder, single episode, unspecified

== ENCOUNTER 2020-05-04 12:23 | Inpatient (IN) | payer MEDICARE ==
[2020-05-04] VITALS (10 sets, daily range): BP systolic 79–165; BP diastolic 31–87
[~2020-05-04] VITALS: Ht 160 cm; Wt 119.5 kg
[2020-05-04 12:54] LABS: HEMATOCRIT 38.6 % (36.0-48.0); HEMOGLOBIN 12.4 g/dL (12-16); MCH 28.7 pg (26.0-34.0); MCHC 32.1 g/dL (31.0-37.0); MCV 89.4 fL (80.0-100.0); MEAN PLATELET VOLUME 8.6 fL (7.4-10.4); PLATELET COUNT 287 10x3/uL (130-400); RBC 4.32 10x6/uL (4.00-5.40); RDW 15.4 % (11.5-14.5); WBC 43.3 10x3/uL (4.8-10.8)
[2020-05-04 13:02] LABS: CALCIUM 8.7 mg/dL (8.5-10.1); CHLORIDE - SERUM 98 mmol/L (98-107); POTASSIUM - SERUM 3.4 mmol/L (3.5-5.1); SODIUM 133 mmol/L (136-145); eGFR NON AFRICAN AMERICAN 88 mL/min (90-120)
[2020-05-04 13:03] LABS: CALC OSMOLALITY 274 mosm/kg (275-300); CREATININE - SERUM 0.7 mg/dL (0.6-1.3); GLUCOSE 226 mg/dL (74-106); UREA NITROGEN 18 mg/dL (7-18)
[2020-05-04 13:06] LABS: APTT 36.1 SECONDS (22.8-39.4); INR 1.07 (0.85-1.17); PROTIME 13.9 SECONDS (11.6-15.0)
[2020-05-04 13:11] LABS: LYMPHOCYTES 3 % (15-50); MONOCYTES 1 % (2-11); NEUTROPHILS 95 % (40-80); PLATELET ESTIMATE NORMAL
[2020-05-04 13:12] LABS: ANISOCYTOSIS OCC; ELLIPTOCYTES OCC
[2020-05-04 13:22] LABS: ALBUMIN 2.9 g/dL (3.4-5.0); ALKALINE PHOSPHATASE 93 U/L (30-120); ALT (SGPT) 65 U/L (10-68); BILIRUBIN - TOTAL 0.43 mg/dL (0.2-1.3); CKMB 1.2 U/L (0.0-3.6); CREATINE KINASE 18 UL (21-215); PRO BNP 1883 pg/mL (0-125)
[2020-05-04 13:23] LABS: TROPONIN-I < 0.017 ng/mL (0.000-0.060)
[2020-05-04 14:28] LABS: NITRITE NEGATIVE (NEGATIVE)
[2020-05-04 14:29] LABS: BILIRUBIN NEGATIVE (NEGATIVE); EPITHELIAL CELLS 0-5 /hpf (0-5); KETONE NEGATIVE (NEGATIVE); UROBILINOGEN NORMAL mg/dL (< 2); YEAST >1+ WITH HYPHAE /hpf (NONE SEEN)
--- NOTE | 2020-05-04 15:04 | NUR ---
PT LAYING IN BED. NO DISTRESS NOTED. COLOR WNL FOR RACE. RESPIRATIONS ARE EVEN AND UNLABORED. WILL CONTINUE TO MONITOR. PT IV PATENT AND INFUSING WITHOUT SIGNS OF INFILTRATION NOTED.
[2020-05-04 15:24] LABS: C-REACTIVE PROTEIN 8.5 mg/dL (0.0-0.9)
--- NOTE | 2020-05-04 16:11 | NUR ---
PT BRIEF CHANGED AND PERICARE PROVIDED. NO DISTRESS NOTED. PT TOLERATED WELL.
[2020-05-04 16:36] LABS: ERYTHROCYTE SEDIMENTATION RATE 30 mm/hr (0-30)
[2020-05-04 17:06] LABS: CKMB 2.1 U/L (0.0-3.6); CREATINE KINASE 27 UL (21-215)
[2020-05-04 17:08] LABS: TROPONIN-I < 0.017 ng/mL (0.000-0.060)
--- NOTE | 2020-05-04 17:35 | NUR ---
PT REPORTS THAT SHE IS SOB. PT HAS BEEN SUCTIONED X2 BY RT. PT O2 IS 96%. CONTACTED RT AT THIS TIME.
--- NOTE | 2020-05-04 18:33 | NUR ---
PT REPORTS IMPROVEMENT IN BREATHING AFTER UPDRAFT.
--- NOTE | 2020-05-04 19:21 | NUR ---
DR. PRUITT TO BEDSIDE, PLACED HER ON 50% OXYGEN PER TACH, ORDERED A 250 BOLUS AND TRITRATED DOWN ON CARDIZEM TO 5MG/HR
--- NOTE | 2020-05-04 19:30 | NUR ---
REQUESTED SYNTHROID FROM [facility]. PATIENT HAS CALL LIGHT WITHIN REACH, DR. PRUITT TO BEDSIDE.
--- NOTE | 2020-05-04 19:31 | NUR ---
DR. PRUITT GAVE VERBAL ORDER TO CHANGE THIS PATIENT TO ICU.
--- NOTE | 2020-05-04 21:00 | NUR ---
IN THE ROOM MULTIPLE TIMES, RESP TO BEDSIDE TO SUCTION, I HAVE REPOSITIONED PATIENT, VITAL SIGNS STABLE
[2020-05-04 22:23] LABS: CKMB 2.7 U/L (0.0-3.6); CREATINE KINASE 28 UL (21-215)
[2020-05-04 22:27] LABS: TROPONIN-I 0.205 ng/mL (0.000-0.060)
--- NOTE | 2020-05-04 22:58 | NUR ---
[address] EL INFORMED HER OF THE TROP 0.205, A-FIB, HR 120'S, SHE SAID TO CALL DR. REICH FOR A CONSULT. CALLED DR. REICH. 2257 DR. REICH CALLED, DISCUSSED TROP, LACTIC ACID, A-FIB, HE STATED HE WOULD SEE THE PATIENT TOMORROW.
[2020-05-05] VITALS (20 sets, daily range): BP systolic 73–120; BP diastolic 40–73; BMI 25.0
--- NOTE | 2020-05-05 00:57 | NUR ---
PATIENT A+O X2, REORIENTED TO DATE, DAUGHTER TO BEDSIDE. PATIENT ABLE TO COMMUNICATE HER NEEDS, STATES SHE FEELS BETTER, NO SOB AT THIS TIME, MEDICATIONS INFUSING PER ORDER.
--- NOTE | 2020-05-05 01:30 | NUR ---
REC'D PT FROM ED VIA STRETCHER, AWAKE. TRANSFERD TO ICU BED. PROSTHETIC LAB TECHNICIAN ATTACHED. HOB UP, CALL LIGHT IN REACH. CONT TO MONITOR.
--- NOTE | 2020-05-05 07:30 | NUR ---
COMPLETE LINEN CHANGE COMPLETE BY LEAD GENERATOR, PT RESTING COMFORTABLE, WILL MONITOR
[2020-05-05 09:44] LABS: BASOPHILS 0 % (0-2); EOSINOPHILS 0 % (0-7); HEMATOCRIT 34.7 % (36.0-48.0); HEMOGLOBIN 10.8 g/dL (12-16); IMMATURE GRANULOCYTES 0.4 % (0-5); LYMPHOCYTES 3.4 % (15-50); MCH 28.4 pg (26.0-34.0); MCHC 31.1 g/dL (31.0-37.0); MCV 91.3 fL (80.0-100.0); NEUTROPHILS 93.2 % (40-80); PLATELET COUNT 286 10x3/uL (130-400); WBC 29.6 10x3/uL (4.8-10.8)
--- NOTE | 2020-05-05 10:00 | NUR ---
SPOKE WITH PATIENTS DAUGHTER AT THIS TIME
[2020-05-05 10:03] LABS: ALBUMIN 2.3 g/dL (3.4-5.0); ALKALINE PHOSPHATASE 78 U/L (30-120); ALT (SGPT) 59 U/L (10-68); BILIRUBIN - TOTAL 0.34 mg/dL (0.2-1.3); CALCIUM 7.7 mg/dL (8.5-10.1); CARBON DIOXIDE 26.7 mmol/L (21.0-32.0); CHLORIDE - SERUM 103 mmol/L (98-107); CREATININE - SERUM 0.6 mg/dL (0.6-1.3); POTASSIUM - SERUM 3.3 mmol/L (3.5-5.1); PROTEIN - SERUM 6.2 g/dL (6.4-8.2); SODIUM 136 mmol/L (136-145); eGFR NON AFRICAN AMERICAN > 90 mL/min (90-120)
[2020-05-05 10:11] LABS: CALC OSMOLALITY 272 mosm/kg (275-300); GLUCOSE 135 mg/dL (74-106); UREA NITROGEN 11 mg/dL (7-18)
[2020-05-05 10:20] LABS: CKMB 2.8 U/L (0.0-3.6); CREATINE KINASE 26 UL (21-215)
[2020-05-05 10:22] LABS: TROPONIN-I 0.243 ng/mL (0.000-0.060)
--- NOTE | 2020-05-05 11:30 | NUR ---
PTS O2 SAT 65% RT NOTIFIED AND AT BEDSIDE, FIO2 INCREASED TO 100%, O2 SAT 91%, WILL MONITOR
--- NOTE | 2020-05-05 12:24 | NUR ---
DR. CORDERO HERE SEEING PATIENT
--- NOTE | 2020-05-05 13:08 | NUR ---
PT RESTING WITH EYES CLOSED, NO DISTRESS NOTED, FIO2 AT 100%
--- NOTE | 2020-05-05 14:00 | NUR ---
DR. PRUITT HERE SEEING PATIENT
--- NOTE | 2020-05-05 15:31 | NUR ---
LYING IN BED RESTING WITH EYES CLOSED AT THIS TIME. VSS. CALL LIGHT IN REACH. RESPIRATIONS STEADY AND UNLABORED. AWAKENS EASILY WHEN SPOKEN TO. ASSISTED WITH REPOSITIONING Q2H. WILL CONTINUE PLAN OF CARE.
[2020-05-06] VITALS (23 sets, daily range): BP systolic 90–140; BP diastolic 50–94; BMI 23.8
[2020-05-06 04:40] LABS: BASOPHILS 0.1 % (0-2); EOSINOPHILS 0.1 % (0-7); IMMATURE GRANULOCYTES 0.3 % (0-5); LYMPHOCYTES 5.8 % (15-50); MCHC 30.6 g/dL (31.0-37.0); MCV 91.6 fL (80.0-100.0); MONOCYTES 3.6 % (2-11); NEUTROPHILS 90.1 % (40-80); PLATELET COUNT 251 10x3/uL (130-400); RBC 3.93 10x6/uL (4.00-5.40); RDW 16.1 % (11.5-14.5)
[2020-05-06 04:54] LABS: WBC 16.3 10x3/uL (4.8-10.8)
[2020-05-06 05:07] LABS: ALBUMIN 2.1 g/dL (3.4-5.0); ALKALINE PHOSPHATASE 73 U/L (30-120); BILIRUBIN - TOTAL 0.37 mg/dL (0.2-1.3); CALCIUM 7.8 mg/dL (8.5-10.1); CARBON DIOXIDE 31.5 mmol/L (21.0-32.0); CHLORIDE - SERUM 100 mmol/L (98-107); CREATININE - SERUM 0.5 mg/dL (0.6-1.3); GLUCOSE 117 mg/dL (74-106); POTASSIUM - SERUM 3.5 mmol/L (3.5-5.1); PROTEIN - SERUM 5.9 g/dL (6.4-8.2); SODIUM 134 mmol/L (136-145); eGFR NON AFRICAN AMERICAN > 90 mL/min (90-120)
[2020-05-06 05:09] LABS: ALT (SGPT) 43 U/L (10-68); CALC OSMOLALITY 265 mosm/kg (275-300); UREA NITROGEN 5 mg/dL (7-18)
--- NOTE | 2020-05-06 07:00 | NUR ---
PT REPORT RECEIVED FROM TUBE LASER OPERATOR NURSE. NO ACUTE SIGNS OF DISTRESS NOTED. SHIFT ASSESSMENT COMPLETED. WILL CONTINUE TO MONITOR
[2020-05-07] VITALS: BP 103/48
--- NOTE | 2020-05-07 03:00 | NUR ---
PEG FEEDING PAUSED AT 0230. BED BATH WITH FULL LINEN CHANGE PERFORMED. FAIRCHILD CARE. FAIRCHILD SECURED TO RIGHT LEG WITH STAT-LOCK. GREEN/BROWN DRAINAGE NOTED AROUND PEG INSERTION SITE. DRESSING REMOVED, AREA CLEANSED, AND NEW DRESSING APPLIED. HEEL PROTECTOR BOOTS AND SCDs APPLIED. PT REPORTS GENERALIZED PAIN 02/22. HOB AT 30 DEGREES. CTM.
--- NOTE | 2020-05-07 03:50 | NUR ---
I have reviewed this patient and I concur with the Shift Assessment completed by the Licensed Practical Nurse today this shift.
[2020-05-07 04:00] VITALS: BP 116/61
[2020-05-07 06:28] LABS: BASOPHILS 0.1 % (0-2); EOSINOPHILS 0.4 % (0-7); HEMATOCRIT 33.3 % (36.0-48.0); HEMOGLOBIN 10.1 g/dL (12-16); IMMATURE GRANULOCYTES 0.3 % (0-5); LYMPHOCYTES 10.1 % (15-50); MCH 27.9 pg (26.0-34.0); MCHC 30.3 g/dL (31.0-37.0); MEAN PLATELET VOLUME 8.8 fL (7.4-10.4); MONOCYTES 6.3 % (2-11); NEUTROPHILS 82.8 % (40-80); PLATELET COUNT 224 10x3/uL (130-400); RBC 3.62 10x6/uL (4.00-5.40); RDW 16.3 % (11.5-14.5)
[2020-05-07 06:56] LABS: ALBUMIN 1.9 g/dL (3.4-5.0); ALKALINE PHOSPHATASE 66 U/L (30-120); ALT (SGPT) 30 U/L (10-68); BILIRUBIN - TOTAL 0.38 mg/dL (0.2-1.3); CALC OSMOLALITY 271 mosm/kg (275-300); CALCIUM 8.1 mg/dL (8.5-10.1); CHLORIDE - SERUM 103 mmol/L (98-107); CREATININE - SERUM 0.5 mg/dL (0.6-1.3); GLUCOSE 65 mg/dL (74-106); POTASSIUM - SERUM 3.4 mmol/L (3.5-5.1); PROTEIN - SERUM 5.1 g/dL (6.4-8.2); SODIUM 138 mmol/L (136-145); UREA NITROGEN 7 mg/dL (7-18); eGFR NON AFRICAN AMERICAN > 90 mL/min (90-120)
[2020-05-07 07:00] LABS: WBC 11.7 10x3/uL (4.8-10.8)
[2020-05-07 08:56] VITALS: BP 114/56
[2020-05-07 12:20] VITALS: BP 100/56
--- NOTE | 2020-05-07 12:35 | NUR ---
0700 BEDSIDE REPORT RECIEVED ASSESSMENT COMPLETE TRACH COLLAR WI;TH O2 AT 100% AT 11L ENCOURAGED COUGH AND DEEP BREATHING COARSE PRODUCTIVE COUGH NOTED
--- NOTE | 2020-05-07 14:42 | MORECARE ---
CASE MANAGEMENT DISCHARGE SUMMARY PATIENT: CHON LUI UNIT: [id number] ADM DATE: 05/04/20 AGE: 69 : 50 SEX: F ROOM/BED: D.2240 AUTHOR: NATALIA HEALY PHYSICIAN: REFERRING PHYSICIAN: LUIS MIGUEL CORDERO MD DATE OF SERVICE: 05/07/20 Discharge Plan Patient Name: CHON LUI Facility: [facility]:[place] : 1950 Planned Disposition: Anticipated Discharge Date: Discharge Date: Expected LOS: Initial Reviewer: [email or web address] Initial Review Date: 05/07/2020 Generated: 05/07/20 3:41 pm Comments DCP- Discharge Planning Updated by [email or web address]: Ida Diaz on 05/07/20 1:[address] Patient Name: CHON LUI Admission Status: ER Accout number: [id number] Admission Date: 05-04-2020 : 1950 Admission Diagnosis:SEPSIS, UNSPECIFIED ORGANISM Attending: LUIS MIGUEL CORDERO Current LOS: 3 Anticipated DC Date: Planned Disposition: Primary Insurance: MEDICARE A & B Discharge Planning Comments: 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 THE PLAN IS TO RETURN TO [facility] AT DISCHARGE. SHE IS CURRENTLY ON 2L OF 02 AT [facility]. SHE IS ON 11 LITERS O2 HERE. I CALLED AND SPOKE WITH TYREE AND SHE STATES THEY WILL NEED A COVID TEST AND 02 AT 5 OR BELOW BEFORE THEY CAN TAKE HER BACK. CM TO FOLLOW AND ASSIST NEEDED. Sales Merchandising Specialist: Ida Diaz DCPIA - Discharge Planning Initial Assessment Updated by [id number]: Ida Diaz on 05/07/20 2:41 pm * PCP [facility] * Preadmission Environment [facility] * Facility Name [facility] * Other Equipment 02 * Additional services required to return to the preadmission environment? No * Can the patient safely return to the preadmission environment? Yes * Has this patient been hospitalized within the prior 30 days at any hospital? No External Providers External Provider: [facility] Next Contact Date: Service Request Date: Service Type: Resolution: Reviewer: Comments: Patient Name: CHON LUI Page 86398 at 1442 All edits/amendments must be made on the electronic document DICTATION DATE: 05/07/201441 LEARNING DEVELOPER: NAHUN 05/07/201441 RPT#: [id number] DC DATE: STATUS: ADM IN [facility] [address] [place] [address] END OF REPORT
[2020-05-07 18:08] VITALS: BP 106/52
[2020-05-07 20:00] VITALS: BP 115/41
--- NOTE | 2020-05-07 20:00 | NUR ---
PT SITTING UP IN BED WITHOUT DISTRESS, AOX4. TRACH COLLAR IN PLACE, 11L. SCDS ON. FAIRCHILD IN PLACE. BS 62, CALLED [facility], RECIEVED ORDER FOR D5 1/2NS WITH 20K @ 75 AND Q6 BS CHECKS, CALLED BACK AT 0000 IF BS <65. PT DAUGHTER AT BEDSIDE. REQUESTING SLEEPING PILL AND BREATHING TRX. NOTIFIED RESP. DENIES OTHER NEEDS AT THIS TIME. CL IN REACH, WILL CTM
[2020-05-08] VITALS: BP 131/60
[2020-05-08 04:00] VITALS: BP 134/54
[2020-05-08 08:30] LABS: BASOPHILS 0.1 % (0-2); EOSINOPHILS 1.1 % (0-7); HEMATOCRIT 37.3 % (36.0-48.0); HEMOGLOBIN 11.5 g/dL (12-16); IMMATURE GRANULOCYTES 0.2 % (0-5); LYMPHOCYTES 16.3 % (15-50); MCHC 30.8 g/dL (31.0-37.0); MEAN PLATELET VOLUME 8.9 fL (7.4-10.4); MONOCYTES 6.6 % (2-11); NEUTROPHILS 75.7 % (40-80); RDW 16.3 % (11.5-14.5); WBC 8.8 10x3/uL (4.8-10.8)
[2020-05-08 08:34] LABS: PLATELET COUNT 273 10x3/uL (130-400)
[2020-05-08 08:37] VITALS: BP 151/64
[2020-05-08 08:46] LABS: ALBUMIN 2.2 g/dL (3.4-5.0); ALKALINE PHOSPHATASE 77 U/L (30-120); ALT (SGPT) 26 U/L (10-68); BILIRUBIN - TOTAL 0.35 mg/dL (0.2-1.3); CALCIUM 8.5 mg/dL (8.5-10.1); CARBON DIOXIDE 30.3 mmol/L (21.0-32.0); CHLORIDE - SERUM 99 mmol/L (98-107); CREATININE - SERUM 0.6 mg/dL (0.6-1.3); GLUCOSE 79 mg/dL (74-106); POTASSIUM - SERUM 3.2 mmol/L (3.5-5.1); SODIUM 134 mmol/L (136-145); eGFR NON AFRICAN AMERICAN > 90 mL/min (90-120)
[2020-05-08 08:47] LABS: CALC OSMOLALITY 263 mosm/kg (275-300); PROTEIN - SERUM 6.6 g/dL (6.4-8.2); UREA NITROGEN 5 mg/dL (7-18)
[2020-05-08 14:38] VITALS: BP 152/62
--- NOTE | 2020-05-08 15:03 | NUR ---
Nutrition follow-up: Resting in bed; droplet isolation Jevity 1.5 mary infusing via gravity drip @ 45 ml/hr Labs reviewed Wt: 131# Pt strict NPO per speech RDN following.
[2020-05-08 17:19] VITALS: BP 105/39
[2020-05-08 20:00] VITALS: BP 122/49
--- NOTE | 2020-05-08 20:00 | NUR ---
PATIENT REQUESTS PRN PAIN MEDICATION. ADMINISTERED PER ORDER. CHANGED PATIENT FEEDING TUBE AND CALCULATED GTT PER MINUTE PER ORDER. DRAINING TO PEG TUBE WELL WITH NO RESIDUAL WHEN ASSESSED. FAIRCHILD BAG DRAINING YELLOW URINE. ASSESSMENT COMPLETE. DENIES FURTHER NEEDS AT THIS TIME. CALL LIGHT CLOSE. CPOC.
--- NOTE | 2020-05-08 23:05 | NUR ---
MARIO GALLAGHER APRN TO NOTIFY OF CRITICAL POTASSIUM RESULTS
--- NOTE | 2020-05-08 23:10 | NUR ---
ORDERS RECEIVED FROM SHIP RUNNER. FLUIDS CHANGED PER ORDER. ELECTROLYTE PROTOCAL INITIATED PER ORDER. CPOC.
[2020-05-09] VITALS: BP 99/46
[2020-05-09 04:00] VITALS: BP 94/48
[2020-05-09 07:22] LABS: BASOPHILS 0.3 % (0-2); HEMATOCRIT 32.8 % (36.0-48.0); HEMOGLOBIN 10.3 g/dL (12-16); IMMATURE GRANULOCYTES 0.3 % (0-5); LYMPHOCYTES 19.4 % (15-50); MCHC 31.4 g/dL (31.0-37.0); MCV 89.1 fL (80.0-100.0); MONOCYTES 7.1 % (2-11); NEUTROPHILS 71.9 % (40-80); PLATELET COUNT 243 10x3/uL (130-400); RBC 3.68 10x6/uL (4.00-5.40); RDW 16.4 % (11.5-14.5); WBC 7.7 10x3/uL (4.8-10.8)
[2020-05-09 08:27] LABS: ALBUMIN 1.9 g/dL (3.4-5.0); ALKALINE PHOSPHATASE 76 U/L (30-120); BILIRUBIN - TOTAL 0.25 mg/dL (0.2-1.3); CALCIUM 8.2 mg/dL (8.5-10.1); CARBON DIOXIDE 26.9 mmol/L (21.0-32.0); CHLORIDE - SERUM 103 mmol/L (98-107); CREATININE - SERUM 0.7 mg/dL (0.6-1.3); GLUCOSE 118 mg/dL (74-106); MAGNESIUM - SERUM 1.8 mg/dL (1.8-2.4); PROTEIN - SERUM 5.9 g/dL (6.4-8.2); SODIUM 135 mmol/L (136-145); eGFR NON AFRICAN AMERICAN 88 mL/min (90-120)
[2020-05-09 08:33] VITALS: BP 142/57
[2020-05-09 08:41] LABS: ALT (SGPT) 18 U/L (10-68); CALC OSMOLALITY 269 mosm/kg (275-300); PHOSPHOROUS 1.2 mg/dL (2.5-4.9); POTASSIUM - SERUM 4.3 mmol/L (3.5-5.1); UREA NITROGEN 9 mg/dL (7-18)
--- NOTE | 2020-05-09 12:23 | MORECARE ---
CASE MANAGEMENT DISCHARGE SUMMARY PATIENT: CHON LUI UNIT: [id number] ADM DATE: 05/04/20 AGE: 69 : 50 SEX: F ROOM/BED: D.2240 AUTHOR: MONET,DOC PHYSICIAN: REFERRING PHYSICIAN: LUIS MIGUEL CORDERO MD DATE OF SERVICE: 05/09/20 Discharge Plan Patient Name: CHON LUI Facility: [facility]:[place] : 1950 Planned Disposition: Anticipated Discharge Date: Discharge Date: Expected LOS: Initial Reviewer: [email or web address] Initial Review Date: 05/07/2020 Generated: 05/09/20 1:22 pm DCP- Discharge Planning Updated by [email or web address]: Ida Diaz on 05/07/20 1:[address] Patient Name: CHON LUI Admission Status: ER Accout number: [id number] Admission Date: 05-04-2020 : 1950 Admission Diagnosis:SEPSIS, UNSPECIFIED ORGANISM Attending: LUIS MIGUEL CORDERO Current LOS: 3 Anticipated DC Date: Planned Disposition: Primary Insurance: MEDICARE A & B Discharge Planning Comments: 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 THE PLAN IS TO RETURN TO [facility] AT DISCHARGE. SHE IS CURRENTLY ON 2L OF 02 AT [facility]. SHE IS ON 11 LITERS O2 HERE. I CALLED AND SPOKE WITH TYREE AND SHE STATES THEY WILL NEED A COVID TEST AND 02 AT 5 OR BELOW BEFORE THEY CAN TAKE HER BACK. CM TO FOLLOW AND ASSIST NEEDED. Table Lever Operator: Ida Diaz DCPIA - Discharge Planning Initial Assessment Updated by [id number]: Ida Diaz on 05/07/20 2:41 pm * PCP [facility] * Preadmission Environment [facility] * Facility Name [facility] * Other Equipment 02 * Additional services required to return to the preadmission environment? No * Can the patient safely return to the preadmission environment? Yes * Has this patient been hospitalized within the prior 30 days at any hospital? No External Providers External Provider: Genevieve Richardson Zoe Next Contact Date: Service Request Date: Service Type: Resolution: Reviewer: Comments: Last DP export: 05/07/20 1:42 p Patient Name: CHON LUI Page 84206 at 1223 All edits/amendments must be made on the electronic document DICTATION DATE: 05/09/201221 CUSTOMER ENGINEERING SPECIALIST: NAHUN 05/09/201221 RPT#: [id number] DC DATE: STATUS: ADM IN [facility] [address] [place] [address] END OF REPORT
[2020-05-09 12:33] VITALS: BP 114/47
--- NOTE | 2020-05-09 12:52 | MORECARE ---
CASE MANAGEMENT DISCHARGE SUMMARY PATIENT: CHON LUI UNIT: [id number] ADM DATE: 05/04/20 AGE: 69 : 50 SEX: F ROOM/BED: D.2240 AUTHOR: MONET,DOC PHYSICIAN: REFERRING PHYSICIAN: LUIS MIGUEL CORDERO MD DATE OF SERVICE: 05/09/20 Discharge Plan Patient Name: CHON LUI Facility: [facility]:[place] : 1950 Planned Disposition: Anticipated Discharge Date: Discharge Date: Expected LOS: Initial Reviewer: [email or web address] Initial Review Date: 05/07/2020 Generated: 05/09/20 1:51 pm Comments DCP- Discharge Planning Updated by [email or web address]: Ida Diaz on 05/09/20 11:[address] Patient Name: CHON LUI Admission Status: ER Accout number: [id number] Admission Date: 05-04-2020 : 1950 Admission Diagnosis:SEPSIS, UNSPECIFIED ORGANISM Attending: LUIS MIGUEL CORDERO Current LOS: 5 Anticipated DC Date: Planned Disposition: Primary Insurance: MEDICARE A & B Discharge Planning Comments: I AM TALKING WITH TIA AT [facility] TO SEE IF THIS PATIENT WOULD BE APROPRIATE FOR THEM FOR NEXT LEVEL OF CARE. WAITING CALL BACK. CM TO FOLLOW AND ASSIST. 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 THE PLAN IS TO RETURN TO [facility] AT DISCHARGE. SHE IS CURRENTLY ON 2L OF 02 AT [facility]. SHE IS ON 11 LITERS O2 HERE. I CALLED AND SPOKE WITH TYREE AND SHE STATES THEY WILL NEED A COVID TEST AND 02 AT 5 OR BELOW BEFORE THEY CAN TAKE HER BACK. CM TO FOLLOW AND ASSIST NEEDED. Deck Hand: Ida Emily DCPIA - Discharge Planning Initial Assessment Updated by [id number]: Ida Diaz on 05/07/20 2:41 pm * PCP [facility] * Preadmission Environment [employer] [facility] * Facility Name [facility] * Other Equipment 02 * Additional services required to return to the preadmission environment? No * Can the patient safely return to the preadmission environment? Yes * Has this patient been hospitalized within the prior 30 days at any hospital? No Last DP export: 05/09/20 11:23 a Patient Name: CHON LUI Page [id number] at 1252 All edits/amendments must be made on the electronic document DICTATION DATE: 05/09/20 1251 YEAST SUPERVISOR: NAHUN 05/09/20 1251 RPT#: [id number] DC DATE: STATUS: ADM IN [facility] [address] [place] [address] END OF REPORT
[2020-05-09 17:41] VITALS: BP 110/70
[2020-05-09 20:00] VITALS: BP 103/40
[2020-05-10] VITALS (8 sets, daily range): BP systolic 93–182; BP diastolic 42–137
--- NOTE | 2020-05-10 03:35 | NUR ---
ASSESSED AT THE BEGINNING OF THE SHIFT. PT IS ALERT AND ORIENTED, ABLE TO VERBALIZE NEEDS. SHE HAS A TRACH COLLAR AT 30% AND A G-TUBE FEEDING GOING AT 40CC BY GRAVITY FEED. SHE HAS NOT NEEDED COVERAGE FOR HER BLOOD SUGARS TONIGHT AND SHE REMAINS IN DROPLET ISOLATION.
--- NOTE | 2020-05-10 07:30 | NUR ---
REC'D IN BED WITH EYES CLOSED EASILY AROUSED WHEN NAME IS CALLED. RESP EVEN AND UNLABORED WITH NO DISTRESS NOTED. TRACH COLLAR IN USE. CAN EXPRESS NEEDS AND WANTS. NO C/O NOTED OR VOICED. C/L IN REACH AT BEDSIDE.
[2020-05-10 07:39] LABS: BASOPHILS 0.1 % (0-2); EOSINOPHILS 2.6 % (0-7); HEMOGLOBIN 11.1 g/dL (12-16); IMMATURE GRANULOCYTES 0.4 % (0-5); MCH 27.8 pg (26.0-34.0); MCHC 30.8 g/dL (31.0-37.0); MCV 90.2 fL (80.0-100.0); MEAN PLATELET VOLUME 9.2 fL (7.4-10.4); MONOCYTES 6.4 % (2-11); NEUTROPHILS 71.5 % (40-80); PLATELET COUNT 254 10x3/uL (130-400); RBC 3.99 10x6/uL (4.00-5.40); RDW 16.6 % (11.5-14.5); WBC 7.6 10x3/uL (4.8-10.8)
[2020-05-10 08:10] LABS: ALKALINE PHOSPHATASE 90 U/L (30-120); ALT (SGPT) 20 U/L (10-68); BILIRUBIN - TOTAL 0.24 mg/dL (0.2-1.3); CALC OSMOLALITY 269 mosm/kg (275-300); CALCIUM 7.7 mg/dL (8.5-10.1); CARBON DIOXIDE 27.7 mmol/L (21.0-32.0); CHLORIDE - SERUM 103 mmol/L (98-107); CREATININE - SERUM 0.6 mg/dL (0.6-1.3); GLUCOSE 145 mg/dL (74-106); MAGNESIUM - SERUM 1.8 mg/dL (1.8-2.4); PROTEIN - SERUM 5.6 g/dL (6.4-8.2); SODIUM 135 mmol/L (136-145); eGFR NON AFRICAN AMERICAN > 90 mL/min (90-120)
[2020-05-10 08:16] LABS: PHOSPHOROUS 2.9 mg/dL (2.5-4.9); UREA NITROGEN 5 mg/dL (7-18)
--- NOTE | 2020-05-10 09:52 | MORECARE ---
CASE MANAGEMENT DISCHARGE SUMMARY PATIENT: CHON LUI UNIT: [id number] ADM DATE: 05/04/20 AGE: 69 : 50 SEX: F ROOM/BED: D.2240 AUTHOR: MONET,DOC PHYSICIAN: REFERRING PHYSICIAN: LUIS MIGUEL CORDERO MD DATE OF SERVICE: 05/10/20 Discharge Plan Patient Name: CHON LUI Facility: [facility]:[place] : 1950 Planned Disposition: Anticipated Discharge Date: Discharge Date: Expected LOS: Initial Reviewer: [email or web address] Initial Review Date: 05/07/2020 Generated: 05/10/20 10:52 am Comments DCP- Discharge Planning Updated by [email or web address]: Ida Diaz on 05/09/20 11:[address] Patient Name: CHON LUI Admission Status: ER Accout number: [id number] Admission Date: 05-04-2020 : 1950 Admission Diagnosis:SEPSIS, UNSPECIFIED ORGANISM Attending: LUIS MIGUEL CORDERO Current LOS: 5 Anticipated DC Date: Planned Disposition: Primary Insurance: MEDICARE A & B Discharge Planning Comments: I AM TALKING WITH TIA AT [facility] TO SEE IF THIS PATIENT WOULD BE APROPRIATE FOR THEM FOR NEXT LEVEL OF CARE. WAITING CALL BACK. CM TO FOLLOW AND ASSIST. 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 THE PLAN IS TO RETURN TO [facility] AT DISCHARGE. SHE IS CURRENTLY ON 2L OF 02 AT [facility]. SHE IS ON 11 LITERS O2 HERE. I CALLED AND SPOKE WITH TYREE AND SHE STATES THEY WILL NEED A COVID TEST AND 02 AT 5 OR BELOW BEFORE THEY CAN TAKE HER BACK. CM TO FOLLOW AND ASSIST NEEDED. Hydrodynamics Professor: Ida Emily DCPIA - Discharge Planning Initial Assessment Updated by [email or web address]: Ida Diaz on 05/10/20 9:48 am * PCP ROSALBA * Preadmission Environment [facility] * Facility Name [facility] * Other Equipment 02 * Additional services required to return to the preadmission environment? No * Can the patient safely return to the preadmission environment? Yes * Has this patient been hospitalized within the prior 30 days at any hospital? Yes Last DP export: 05/09/20 11:52 a Patient Name: CHON LUI Page 15283 at 0952 All edits/amendments must be made on the electronic document DICTATION DATE: 05/10/20951 CORRECTIONS IDENTIFICATION TECHNICIAN: NAHUN 05/10/20951 RPT#: [id number] DC DATE: STATUS: ADM IN [facility] [address] [place] [address] END OF REPORT
--- NOTE | 2020-05-10 10:28 | NUR ---
PATIENT IN BED WATCHING TV. DENIES ANY NEEDS AT THIS TIME. FREE FROM SIGNS OF DISTRESS. BED LOW POSITION, CALL LIGHT IN REACH. WILL CONTINUE TO MONITOR.
--- NOTE | 2020-05-10 13:27 | MORECARE ---
CASE MANAGEMENT DISCHARGE SUMMARY PATIENT: CHON LUI UNIT: [id number] ADM DATE: 05/04/20 AGE: 69 : 50 SEX: F ROOM/BED: D.2240 AUTHOR: NATALIA HEALY PHYSICIAN: REFERRING PHYSICIAN: LUIS MIGUEL CORDERO MD DATE OF SERVICE: 05/10/20 Discharge Plan Patient Name: CHON LUI Facility: [facility]:[place] : 1950 Planned Disposition: Anticipated Discharge Date: Discharge Date: Expected LOS: Initial Reviewer: [email or web address] Initial Review Date: 05/07/2020 Generated: 05/10/20 2:27 pm Comments DCP- Discharge Planning Updated by [email or web address]: Ida Diaz on 05/10/20 12:[address] Patient Name: CHON LUI Admission Status: ER Accout number: [id number] Admission Date: 05-04-2020 : 1950 Admission Diagnosis:SEPSIS, UNSPECIFIED ORGANISM Attending: LUIS MIGUEL CORDERO Current LOS: 6 Anticipated DC Date: Planned Disposition: Primary Insurance: MEDICARE A & B Discharge Planning Comments: UPDATED CLINICALS FAXED TO TIA AT [facility], NO BED AVAILABLE AT THIS TIME. STATES POSSIBLE BED OPEN WEDNESDAY. CM TO FOLLOW AND ASSIST NEEDED. Train Gate Attendant: Ida Diaz DCP- Discharge Planning Updated by [email or web address]: Ida Diaz on 05/09/20 11:[address] Patient Name: CHON LUI Admission Status: ER Accout number: [id number] Admission Date: 05-04-2020 : 1950 Admission Diagnosis:SEPSIS, UNSPECIFIED ORGANISM Attending: LUIS MIGUEL CORDERO Current LOS: 5 Anticipated DC Date: Planned Disposition: Primary Insurance: MEDICARE A & B Discharge Planning Comments: I AM TALKING WITH TIA AT [facility] TO SEE IF THIS PATIENT WOULD BE APROPRIATE FOR THEM FOR NEXT LEVEL OF CARE. WAITING CALL BACK. CM TO FOLLOW AND ASSIST. Train Gate Attendant: Ida Diaz DCP- Discharge Planning Updated by [email or web address]: Ida Diaz on 05/07/20 1:[address] Patient Name: CHON LUI Admission Status: ER Accout number: [id number] Admission Date: 05-04-2020 : 1950 Admission Diagnosis:SEPSIS, UNSPECIFIED ORGANISM Attending: LUIS MIGUEL CORDERO Current LOS: 3 Anticipated DC Date: Planned Disposition: Primary Insurance: MEDICARE A & B Discharge Planning Comments: PATIENT IS A [facility] RESIDENT AT [facility]. THE PLAN IS TO RETURN TO [facility] AT DISCHARGE. SHE IS CURRENTLY ON 2L OF 02 AT [facility]. SHE IS ON 11 LITERS O2 HERE. I CALLED AND SPOKE WITH TYREE AND SHE STATES THEY WILL NEED A COVID TEST AND 02 AT 5 OR BELOW BEFORE THEY CAN TAKE HER BACK. CM TO FOLLOW AND ASSIST NEEDED. Train Gate Attendant: Ida Diaz DCPIA - Discharge Planning Initial Assessment Updated by [id number]: Ida Diaz on 05/10/20 9:48 am * PCP ROSALBA * Preadmission Environment [facility] * Facility Name [facility] * Other Equipment 02 * Additional services required to return to the preadmission environment? No * Can the patient safely return to the preadmission environment? Yes * Has this patient been hospitalized within the prior 30 days at any hospital? Yes Last DP export: 05/10/20 8:52 a Patient Name: CHON LUI Page 71685 at 1327 All edits/amendments must be made on the electronic document DICTATION DATE: 05/10/20 1327 REHABILITATION PROGRAM COORDINATOR: NAHUN 05/10/20 1327 RPT#: [id number] DC DATE: STATUS: ADM IN [facility] [address] [place] [address] END OF REPORT
--- NOTE | 2020-05-10 13:34 | NUR ---
WAS MEDICATED WITH NORCO AT THIS TIME FOR C/O PAIN. C/L IN REACH AT BEDSIDE. C/L IN REACH AT BEDSIDE.
--- NOTE | 2020-05-10 14:09 | NUR ---
Nutrition follow-up: Pt NPO with trach collar Jevity 1.5 infusing @ 40 ml/hr via gravity drip. Labs reviewed Wt: 131# Pt tolerating TF at this time RDN following.
--- NOTE | 2020-05-10 17:24 | NUR ---
Spoke with Dr. Morillo regarding breathing rate of 30s-40s and Hr 120s. Orders received.
--- NOTE | 2020-05-10 18:39 | NUR ---
Dr. Morillo in unit. Reported that pt continues have hr in 120-130s. Fentanyl drip to be initated at 25mcg/h. No titration. Maintain at 25mcg/hr.
--- NOTE | 2020-05-10 22:45 | NUR ---
NEW #20 IV STARTED IN RIGHT FOREARM/WRIST
[2020-05-11] VITALS (94 sets, daily range): BP systolic 78–143; BP diastolic 36–90; Ht 160 cm; Wt 119.5 kg
[2020-05-11 03:10] LABS: BASOPHILS 0.1 % (0-2); EOSINOPHILS 0 % (0-7); IMMATURE GRANULOCYTES 0.7 % (0-5); LYMPHOCYTES 9.4 % (15-50); MCH 28.6 pg (26.0-34.0); MCHC 32.1 g/dL (31.0-37.0); MCV 88.9 fL (80.0-100.0); MEAN PLATELET VOLUME 9.4 fL (7.4-10.4); MONOCYTES 5.3 % (2-11); NEUTROPHILS 84.5 % (40-80); PLATELET COUNT 218 10x3/uL (130-400); RBC 3.15 10x6/uL (4.00-5.40); RDW 16.5 % (11.5-14.5); WBC 17.8 10x3/uL (4.8-10.8)
[2020-05-11 03:24] LABS: ANION GAP 14.3 mmol/L (8-16); BILIRUBIN - TOTAL 0.45 mg/dL (0.2-1.3); CALCIUM 8.1 mg/dL (8.5-10.1); CARBON DIOXIDE 24.1 mmol/L (21.0-32.0); MAGNESIUM - SERUM 1.7 mg/dL (1.8-2.4); PHOSPHOROUS 3.2 mg/dL (2.5-4.9); POTASSIUM - SERUM 3.4 mmol/L (3.5-5.1); PROTEIN - SERUM 6.4 g/dL (6.4-8.2)
[2020-05-11 03:27] LABS: ALBUMIN 2.9 g/dL (3.4-5.0); CREATININE - SERUM 1.2 mg/dL (0.6-1.3)
--- NOTE | 2020-05-11 05:28 | NUR ---
[facility] TO CALL BACK TO UNIT WITH QUESTION OF VANCO MED AND ELEVATED CREATINE THIS AM. AWAITING CALL BACK.
--- NOTE | 2020-05-11 05:42 | NUR ---
PHARMACIST RETURN CALL AND STATED THAT VANCOMYCIN SHOUKD BE ORDERED Q24HR BASED ON KIDNEY FUNCTION. DR GÓMEZ TO BE MADE AWARE.
--- NOTE | 2020-05-11 05:47 | NUR ---
DR GÓMEZ PAGED TO UPDATE LABS AND VANCOMYCIN DOSING RECOMMENDED BY PHARMACY. WILL UPDATE MD ON CURRENT STATUS.
--- NOTE | 2020-05-11 06:29 | NUR ---
DR GÓMEZ CALLED BACK TO UNIT AND GOT STATUS UPDATE WELL ORDER GIVEN FOR VANCOMYCIN DOSE TO BE GIVEN Q24 HOURS. CARES CONTINUE.
--- NOTE | 2020-05-11 07:45 | NUR ---
PATIENT AWAKE AND ALERT ABLE TO POINT AT LETTERS AND COMMUNICATE NEEDS. TRACH TO VENT. NO DISTRESS. RESP DEEP AND REGULAR. PEG TUBE SITE IS LEAKING AROUND SITE. CLEAN DRESSING APPLIED WITH CLEAN TOWEL AROUND PEG SITE. IV'S RIGHT AND LEFT ARM WITHOUT REDNESS OR SWELLING. NEOSYNEPHRINE INFUSING AT 30 MCG/MIN. VASOPRESSING AT 0.04 UNITS. NS AT 125 ML HOUR. FAIRCHILD CATH PATENT. FENTANYL AT 25 MCG/HOUR CONTINOUSLY.
--- NOTE | 2020-05-11 09:22 | NUR ---
REPORT GIVEN TO NEW SHIFT RN. PT REMAINS ON PRESSERS AND IVF. MD UPDATED WITH STATUS AND ORDERS IMPLEMENTED. PT ALERT AND ORIENTED. SAFETY MAINTAINED. REPOSITIONED FREQUENTLY. VASOPRESSIN REMAINS AT 0.04 UNITS/MIN, ROE AT 40MCG AND NS AT 125ML. PT SAFE. CALLL LIGHT IN REACH
--- NOTE | 2020-05-11 10:30 | NUR ---
EXPLAINED THORACENTENSIS TO PATIENT SHE NODES HEAD IN AGREEMENT. TALKED TO DAUGHTER DEBORAH ON PHONE. PHONE CONSENT RECEIVED FROM DAUGHTER. ALL QUESTIONS ANSWERED.
--- NOTE | 2020-05-11 12:30 | NUR ---
DR. GÓMEZ HERE.THORACENTESIS PERFORMED RIGHT LUNG. PATIENT SAT ON SIDE OF THE BED WITH ASSISTANCES OF STAFF. AFTER ULTRASOUND PERFORMED. 300CC OF CLEAR YELLOW FLUID REMOVED. FLUID TAKEN TO LAB. PATIENT TOLERATED FAIR.
--- NOTE | 2020-05-11 14:00 | NUR ---
NO BLEEDING FROM THORACENTESIS SITE.
[2020-05-11 15:07] LABS: PROTEIN - BODY FLUID 3.8 G/DL
--- NOTE | 2020-05-11 15:30 | NUR ---
DR. RITTER HERE. RIGHT FEMEROL TRIPLE LUMEN INSERTED WITH GOOD BLOOD RETURN. SUTURE IN PLACE. IN ICE CREAM MAKER. ALL NEW LINES PLACED TO CENTRAL LINE.
--- NOTE | 2020-05-11 20:40 | OP ---
PATIENT NAME: CHON LUI MEDICAL RECORD: [id number] :[birth year] LOCATION:D.[facility] D.2305 ADMISSION DATE:05/04/20 SURGEON: TERRY RITTER MD DATE OF OPERATION: 05/11/2020 PREOPERATIVE DIAGNOSES: 1. Hypotension, on pressor therapy. 2. Ventilatory failure, requiring mechanical ventilation. POSTOPERATIVE DIAGNOSES: 1. Hypotension, on pressor therapy. 2. Ventilatory failure, requiring mechanical ventilation. PROCEDURE: Placement of right common femoral venous triple-lumen central catheter. SURGEON: Terry Ritter MD OUTER DIAMETER GRINDER TOOL: None. BLOOD LOSS: Minimal. ANESTHESIA: Local. The entire procedure was performed in the presence of a female nurse. The patient does have a port on the left side and she does not want this accessed. She has got a good bit of sputum production around her tracheostomy, so I believe that the subclavian or internal jugular sites would be at significant risk for bacterial contamination. She does not have much of an inguinal crease. Additionally, she does not have a pannicular fold. For these reasons, I think that the groin might be the safest site for insertion of a central line from a contamination standpoint. DESCRIPTION OF PROCEDURE: The patient was positioned in the reverse Trendelenburg position. The right groin was sterilely prepped and draped. A local anesthetic was used to infiltrate the skin and subcutaneous tissue at the base of the right groin. The right common femoral vein was percutaneously accessed in an antegrade fashion. The guidewire passed easily. A small skin reny was accomplished. A vessel dilator was used to dilate the subcutaneous tract. A 16 cm triple-lumen central venous catheter was inserted to the hub. It was sutured in place times 2. All lumens flushed easily and aspirated dark, nonpulsatile blood. No x-ray is necessary. The central venous line can be used immediately. NTS:[id number] Voice Confirmation ID: [id number] DOCUMENT ID: [id number] OPERATIVE REPORT [id number] CHON LUI ROBERT MD at 2040 CC: [id number] DICTATION DATE: 05/11/202004 WEBBING SUPERVISOR: 05/11/202028 ADM IN [place] [address] [place] [address]
[2020-05-12] VITALS (62 sets, daily range): BP systolic 89–147; BP diastolic 39–65
--- NOTE | 2020-05-12 01:41 | NUR ---
DAUGHTER JANIYA CALLED FOR PT UPDATE. QUESTIONS ANSWERED BEST POSSIBLE.
[2020-05-12 03:57] LABS: ALBUMIN 2.2 g/dL (3.4-5.0); ALKALINE PHOSPHATASE 56 U/L (30-120); ALT (SGPT) 12 U/L (10-68); BILIRUBIN - TOTAL 0.32 mg/dL (0.2-1.3); CALCIUM 7.9 mg/dL (8.5-10.1); CARBON DIOXIDE 27.4 mmol/L (21.0-32.0); CHLORIDE - SERUM 100 mmol/L (98-107); MAGNESIUM - SERUM 1.4 mg/dL (1.8-2.4); POTASSIUM - SERUM 3.3 mmol/L (3.5-5.1); SODIUM 135 mmol/L (136-145); eGFR NON AFRICAN AMERICAN 75 mL/min (90-120)
[2020-05-12 03:58] LABS: BASOPHILS 0.1 % (0-2); EOSINOPHILS 0.2 % (0-7); IMMATURE GRANULOCYTES 0.3 % (0-5); LYMPHOCYTES 9.6 % (15-50); MCH 27.3 pg (26.0-34.0); MCHC 30.5 g/dL (31.0-37.0); MCV 89.4 fL (80.0-100.0); MEAN PLATELET VOLUME 9.6 fL (7.4-10.4); MONOCYTES 3.1 % (2-11); NEUTROPHILS 86.7 % (40-80); PLATELET COUNT 203 10x3/uL (130-400); RBC 2.64 10x6/uL (4.00-5.40); RDW 16.9 % (11.5-14.5); WBC 14.8 10x3/uL (4.8-10.8)
[2020-05-12 03:59] LABS: HEMATOCRIT 26.8 % (36.0-48.0); HEMOGLOBIN 9.2 g/dL (12-16)
[2020-05-12 04:00] LABS: CALC OSMOLALITY 269 mosm/kg (275-300); CREATININE - SERUM 0.8 mg/dL (0.6-1.3); GLUCOSE 118 mg/dL (74-106); PHOSPHOROUS 2.1 mg/dL (2.5-4.9); UREA NITROGEN 9 mg/dL (7-18)
--- NOTE | 2020-05-12 09:00 | NUR ---
PATIENT RESTING COMFORTABLY ON FENTANYL 50 MCG/HR. TRACH TO VENT. AWAKE AND ALERT ABLE TO WRITE NOTES. WEANING NEOSYNEPHRINE GTT TOLERATED TO MAINTAIN SBP GREATHER THAN 90 AND MAP GREATER THAN 65. VASOPRESSING AT 0.04 UNITS, 6 ML HOUR. NS INFUSING AT 125 ML HOUR. FAIRCHILD CATH PATENT WITH PALE YELLOW URINE IN BAG. MONITOR SR. NO DISTRESS. SCD'S ON LOWER LEGS. HEEL PROTECTORS ON FEET. HEAD OF BED ELEVATED 30 DEGREES
--- NOTE | 2020-05-12 09:30 | NUR ---
RECEIVED FROM [facility] POST CODE JUANITO.
--- NOTE | 2020-05-12 10:05 | NUR ---
TO OR PER BED, WITH DR. RITTER. ABD OPEN IN ROOM WITH OR TEAM. POST CODE BLUE
--- NOTE | 2020-05-12 17:41 | NUR ---
CONTINUES TO REST COMFORTABLY ON FENTANYL 50 MCG/HOUR. NEOSYNEPHRINE WEAN TO 8 MCG/IMIN. WATCHING TV MOST OF DAY. ABLE TO WRITE NOTES TO MAKE NEEDS KNOWN
--- NOTE | 2020-05-12 18:04 | NUR ---
NEW 24FR PEG PLACED PER DR. RITTER. TYRON WITH GASTROGRAFT TO BE DONE BEFORE USE
[2020-05-13] VITALS (38 sets, daily range): BP systolic 97–153; BP diastolic 41–84
--- NOTE | 2020-05-13 07:10 | NUR ---
REPORT RECIEVEDFROM OFF GOING NURSE AND PATIENT CARE ASSUMED. PATIENT LAYING IN BED ON BACK HOB ELEVATED 30 DEGREES. PATIENT IS AWAKE AND ALERT. NON VERBAL DUE TO TRACHVENT AC 20 FIO2 35% TV400 PEEP 5. BP 155/86 HR92 O2SAT 96% R18. PAITENT IS STABLE AND VSS. PATIENT DENIES ANY NEEDS OR PAIN. WILL CONTINUE WITH PLAN OF CARE.SR UP X 2 BED IN LOW POSITION AND CALL LIGHT IN REACH.
[2020-05-13 07:43] LABS: ALBUMIN 2.3 g/dL (3.4-5.0); ALKALINE PHOSPHATASE 65 U/L (30-120); ALT (SGPT) 12 U/L (10-68); CALC OSMOLALITY 261 mosm/kg (275-300); CALCIUM 7.8 mg/dL (8.5-10.1); CARBON DIOXIDE 24.6 mmol/L (21.0-32.0); CHLORIDE - SERUM 95 mmol/L (98-107); CREATININE - SERUM 0.6 mg/dL (0.6-1.3); GLUCOSE 100 mg/dL (74-106); MAGNESIUM - SERUM 1.7 mg/dL (1.8-2.4); PHOSPHOROUS 2.6 mg/dL (2.5-4.9); PROTEIN - SERUM 5.7 g/dL (6.4-8.2); SODIUM 131 mmol/L (136-145); UREA NITROGEN 10 mg/dL (7-18); eGFR NON AFRICAN AMERICAN > 90 mL/min (90-120)
[2020-05-13 07:47] LABS: POTASSIUM - SERUM 2.8 mmol/L (3.5-5.1)
[2020-05-13 07:49] LABS: BASOPHILS 0.1 % (0-2); EOSINOPHILS 0.1 % (0-7); HEMATOCRIT 23.7 % (36.0-48.0); HEMOGLOBIN 7.6 g/dL (12-16); IMMATURE GRANULOCYTES 0.1 % (0-5); LYMPHOCYTES 14.5 % (15-50); MCHC 32.1 g/dL (31.0-37.0); MCV 87.5 fL (80.0-100.0); MEAN PLATELET VOLUME 9.7 fL (7.4-10.4); MONOCYTES 3.2 % (2-11); PLATELET COUNT 176 10x3/uL (130-400); RBC 2.71 10x6/uL (4.00-5.40); RDW 16.7 % (11.5-14.5)
[2020-05-13 07:52] LABS: WBC 8.1 10x3/uL (4.8-10.8)
--- NOTE | 2020-05-13 10:03 | NUR ---
Nutrition follow-up: Pt with trach to vent; pressors still in use PEG tube changed out 05/11 with 24 F tube Per Kenzie, RN PEG tube still leaking and TF remains off at this time Labs reviewed Wt:130# RDN following.
--- NOTE | 2020-05-13 12:07 | NUR ---
PATIENT COMPLAINS OF PAIN TO BACK REQUESTING HYDROCODONE. PATIENT MEDICATED PER MAR WITH HYDROCODONE 5/325 VIA PEG TUBE. KESHAWN CONTINUE TO MONITOR. SR UP X 2 BED IN LOW POSIITON AND CALL LIGHT IN REACH.
--- NOTE | 2020-05-13 14:48 | OP ---
PATIENT NAME: CHON LUI MEDICAL RECORD: [id number] :[birth year] LOCATION:[facility] D.2305 ADMISSION DATE:05/04/20 SURGEON: TERRY RITTER MD DATE OF OPERATION: 05/12/2020 PREOPERATIVE DIAGNOSIS: Leaking gastrostomy tube. POSTOPERATIVE DIAGNOSES: Leaking gastrostomy tube. PROCEDURE: Gastrostomy tube change out. The replacement gastrostomy tube is a 24-[place]an balloon-type gastrostomy tube. SURGEON: Terry Ritter MD IT TRAINEE: None. BLOOD LOSS: Zero. The procedure was performed in the presence of a female nurse. OPERATIVE COURSE: The patient was positioned in the reverse Trendelenburg position. I deflated the indwelling gastrostomy tube. It was removed in its entirety. I then sterilely prepped the gastrocutaneous stoma as well as the skin around the stoma. I checked the balloon on a well-lubricated 24-S[place]an gastrostomy tube. The balloon was patent. I then deflated the balloon and advanced the balloon down through the gastrocutaneous stoma and into the stomach. I then inflated the balloon with 20 cc of normal saline. I then pushed down the flange. A drain sponge was applied underneath the flange. A followup KUB performed after dye instillation through the tube revealed adequate placement. The feeding tube can be used immediately. TRANSINT:[id number] Voice Confirmation ID: [id number] DOCUMENT ID: [id number] TERRY RITTER MD at 1448 CC: [id number] DICTATION DATE: 05/12/201937 NURSE TRANSPLANT: 05/13/20 0413 ADM IN [place] [id number] [place] [id number]
[2020-05-13 15:11] LABS: AEROBE ID Final report (())
[2020-05-14] VITALS (44 sets, daily range): BP systolic 83–139; BP diastolic 34–94
[2020-05-14 05:43] LABS: BASOPHILS 0 % (0-2); EOSINOPHILS 0.5 % (0-7); HEMATOCRIT 23.3 % (36.0-48.0); HEMOGLOBIN 7.6 g/dL (12-16); IMMATURE GRANULOCYTES 0.4 % (0-5); LYMPHOCYTES 20.6 % (15-50); MCH 27.8 pg (26.0-34.0); MCHC 32.6 g/dL (31.0-37.0); MEAN PLATELET VOLUME 9.2 fL (7.4-10.4); MONOCYTES 5.6 % (2-11); NEUTROPHILS 72.9 % (40-80); PLATELET COUNT 201 10x3/uL (130-400); RBC 2.73 10x6/uL (4.00-5.40); RDW 16.1 % (11.5-14.5)
[2020-05-14 05:45] LABS: WBC 5.7 10x3/uL (4.8-10.8)
[2020-05-14 05:46] LABS: MCV 85.3 fL (80.0-100.0)
[2020-05-14 06:04] LABS: ALBUMIN 2.4 g/dL (3.4-5.0); ALKALINE PHOSPHATASE 64 U/L (30-120); BILIRUBIN - TOTAL 0.44 mg/dL (0.2-1.3); CALC OSMOLALITY 251 mosm/kg (275-300); CALCIUM 8.4 mg/dL (8.5-10.1); CARBON DIOXIDE 24.6 mmol/L (21.0-32.0); CHLORIDE - SERUM 90 mmol/L (98-107); GLUCOSE 130 mg/dL (74-106); MAGNESIUM - SERUM 1.4 mg/dL (1.8-2.4); PROTEIN - SERUM 6.6 g/dL (6.4-8.2); SODIUM 125 mmol/L (136-145); UREA NITROGEN 8 mg/dL (7-18)
[2020-05-14 06:08] LABS: ALT (SGPT) 6 U/L (10-68); CREATININE - SERUM 0.8 mg/dL (0.6-1.3); eGFR NON AFRICAN AMERICAN 75 mL/min (90-120)
[2020-05-14 06:09] LABS: POTASSIUM - SERUM 2.7 mmol/L (3.5-5.1)
[2020-05-15] VITALS (21 sets, daily range): BP systolic 87–152; BP diastolic 44–66
[2020-05-15 05:12] LABS: BASOPHILS 0.2 % (0-2); EOSINOPHILS 0.4 % (0-7); IMMATURE GRANULOCYTES 0.2 % (0-5); LYMPHOCYTES 16.6 % (15-50); MCH 28.5 pg (26.0-34.0); MCHC 32.7 g/dL (31.0-37.0); MEAN PLATELET VOLUME 9.3 fL (7.4-10.4); NEUTROPHILS 75.6 % (40-80); PLATELET COUNT 206 10x3/uL (130-400); RDW 16.1 % (11.5-14.5); WBC 4.9 10x3/uL (4.8-10.8)
[2020-05-15 05:31] LABS: HEMATOCRIT 29.7 % (36.0-48.0); HEMOGLOBIN 9.7 g/dL (12-16); MCV 87.4 fL (80.0-100.0)
[2020-05-15 05:55] LABS: ALKALINE PHOSPHATASE 57 U/L (30-120); BILIRUBIN - TOTAL 0.38 mg/dL (0.2-1.3); CALCIUM 8.1 mg/dL (8.5-10.1); CARBON DIOXIDE 24.9 mmol/L (21.0-32.0); CHLORIDE - SERUM 109 mmol/L (98-107); CREATININE - SERUM 0.7 mg/dL (0.6-1.3); MAGNESIUM - SERUM 1.6 mg/dL (1.8-2.4); PROTEIN - SERUM 5.9 g/dL (6.4-8.2); SODIUM 142 mmol/L (136-145); UREA NITROGEN 6 mg/dL (7-18); eGFR NON AFRICAN AMERICAN 88 mL/min (90-120)
[2020-05-15 06:13] LABS: ALT (SGPT) 10 U/L (10-68); CALC OSMOLALITY 279 mosm/kg (275-300); GLUCOSE 76 mg/dL (74-106)
[2020-05-15 06:15] LABS: POTASSIUM - SERUM 2.8 mmol/L (3.5-5.1)
--- NOTE | 2020-05-15 09:42 | NUR ---
20 meq KCl rider bag number 2 initiated at this time for a K+ of 2.8 on AM labs.
--- NOTE | 2020-05-15 10:57 | NUR ---
Nutrition follow-up: Pt sitting in bed watching TV Trach->vent Jevity 1.5 mary infusing @ 40 ml/hr Wt: 131# RDN following.
--- NOTE | 2020-05-15 11:33 | NUR ---
DR PRUITT AT BEDSIDE AT THIS TIME DISCUSSING FURTHER PLAN OF CARE WITH PATIENT.
--- NOTE | 2020-05-15 12:19 | NUR ---
Patient c/o back pain rated 6/10 on pain scale. PRN medication administered at this time.
--- NOTE | 2020-05-15 15:50 | NUR ---
Patient with possible bladder spasms noted as there has been some leakage from eaton. Partial linen change complete at this time. Rt groin CVL dressing change also completed at this time per sterile technique.
--- NOTE | 2020-05-15 16:22 | NUR ---
Spoke with daughter Tanna. Update given in regard to patient status.
[2020-05-16] VITALS (25 sets, daily range): BP systolic 61–168; BP diastolic 43–104
[2020-05-16 04:52] LABS: BASOPHILS 0.2 % (0-2); EOSINOPHILS 1.8 % (0-7); HEMATOCRIT 30.5 % (36.0-48.0); HEMOGLOBIN 9.6 g/dL (12-16); IMMATURE GRANULOCYTES 0.5 % (0-5); LYMPHOCYTES 35.1 % (15-50); MCHC 31.5 g/dL (31.0-37.0); MCV 88.9 fL (80.0-100.0); MEAN PLATELET VOLUME 9.4 fL (7.4-10.4); MONOCYTES 8.6 % (2-11); NEUTROPHILS 53.8 % (40-80); RBC 3.43 10x6/uL (4.00-5.40); RDW 16.4 % (11.5-14.5); WBC 5.5 10x3/uL (4.8-10.8)
[2020-05-16 05:06] LABS: PLATELET COUNT 258 10x3/uL (130-400)
[2020-05-16 05:11] LABS: ALBUMIN 1.9 g/dL (3.4-5.0); ALKALINE PHOSPHATASE 59 U/L (30-120); ALT (SGPT) 12 U/L (10-68); BILIRUBIN - TOTAL 0.39 mg/dL (0.2-1.3); CALCIUM 8.3 mg/dL (8.5-10.1); CARBON DIOXIDE 25.3 mmol/L (21.0-32.0); CHLORIDE - SERUM 108 mmol/L (98-107); CREATININE - SERUM 0.7 mg/dL (0.6-1.3); GLUCOSE 79 mg/dL (74-106); POTASSIUM - SERUM 3.5 mmol/L (3.5-5.1); PROTEIN - SERUM 5.9 g/dL (6.4-8.2); SODIUM 138 mmol/L (136-145); eGFR NON AFRICAN AMERICAN 88 mL/min (90-120)
[2020-05-16 05:31] LABS: CALC OSMOLALITY 271 mosm/kg (275-300); UREA NITROGEN 4 mg/dL (7-18)
--- NOTE | 2020-05-16 15:47 | MORECARE ---
CASE MANAGEMENT DISCHARGE SUMMARY PATIENT: CHON LUI UNIT: [id number] ADM DATE: 05/04/20 AGE: 69 : 50 SEX: F ROOM/BED: D.2305 AUTHOR: MONETDOC PHYSICIAN: REFERRING PHYSICIAN: LUIS MIGUEL CORDERO MD DATE OF SERVICE: 05/16/20 Discharge Plan Patient Name: CHON LUI Facility: [facility]:[place] : 1950 Planned Disposition: Anticipated Discharge Date: Discharge Date: Expected LOS: Initial Reviewer: [email or web address] Initial Review Date: 05/07/2020 Generated: 05/16/20 4:47 pm DCP- Discharge Planning Updated by [email or web address]: Ida Diaz on 05/10/20 12:[address] Patient Name: CHON LUI Admission Status: ER Accout number: [id number] Admission Date: 05-04-2020 : 1950 Admission Diagnosis:SEPSIS, UNSPECIFIED ORGANISM Attending: LUIS MIGUEL CORDERO Current LOS: 6 Anticipated DC Date: Planned Disposition: Primary Insurance: MEDICARE A & B Discharge Planning Comments: UPDATED CLINICALS FAXED TO TIA AT [facility], NO BED AVAILABLE AT THIS TIME. STATES POSSIBLE BED OPEN WEDNESDAY. CM TO FOLLOW AND ASSIST NEEDED. Print Room Worker: Ida Diaz DCP- Discharge Planning Updated by [email or web address]: Ida Diaz on 05/09/20 11:[address] Patient Name: CHON LUI Admission Status: ER Accout number: [id number] Admission Date: 05-04-2020 : 1950 Admission Diagnosis:SEPSIS, UNSPECIFIED ORGANISM Attending: LUIS MIGUEL CORDERO Current LOS: 5 Anticipated DC Date: Planned Disposition: Primary Insurance: MEDICARE A & B Discharge Planning Comments: I AM TALKING WITH TIA AT [facility] TO SEE IF THIS PATIENT WOULD BE APROPRIATE FOR THEM FOR NEXT LEVEL OF CARE. WAITING CALL BACK. CM TO FOLLOW AND ASSIST. 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 THE PLAN IS TO RETURN TO [facility] AT DISCHARGE. SHE IS CURRENTLY ON 2L OF 02 AT [facility]. SHE IS ON 11 LITERS O2 HERE. I CALLED AND SPOKE WITH TYREE AND SHE STATES THEY WILL NEED A COVID TEST AND 02 AT 5 OR BELOW BEFORE THEY CAN TAKE HER BACK. CM TO FOLLOW AND ASSIST NEEDED. Print Room Worker: Ida Diaz DCPIA - Discharge Planning Initial Assessment Updated by [email or web address]: Ida Diaz on 05/10/20 9:48 am * PCP ROSALBA * Preadmission Environment [facility] * Facility Name [facility] * Other Equipment 02 * Additional services required to return to the preadmission environment? No * Can the patient safely return to the preadmission environment? Yes * Has this patient been hospitalized within the prior 30 days at any hospital? Yes External Providers External Provider: Genevieve [facility] Next Contact Date: Service Request Date: Service Type: Resolution: Reviewer: Comments: Last DP export: 05/10/20 12:27 p Patient Name: CHON LUI Page 71312 at 1547 All edits/amendments must be made on the electronic document DICTATION DATE: 05/16/201546 MANAGER GROCERY: NAHUN 05/16/20 154 RPT#: [id number] DC DATE: STATUS: ADM IN [facility] [address] [place] [address] END OF REPORT
--- NOTE | 2020-05-16 21:20 | MORECARE ---
CASE MANAGEMENT DISCHARGE SUMMARY PATIENT: CHON LUI UNIT: [id number] ADM DATE: 05/04/20 AGE: 69 : 50 SEX: F ROOM/BED: D.2305 AUTHOR: MONETDOC PHYSICIAN: REFERRING PHYSICIAN: LUIS MIGUEL CORDERO MD DATE OF SERVICE: 05/16/20 Discharge Plan Patient Name: CHON LUI Facility: [facility]:[place] : 1950 Planned Disposition: Anticipated Discharge Date: Discharge Date: Expected LOS: Initial Reviewer: [email or web address] Initial Review Date: 05/07/2020 Generated: 05/16/20 10:20 pm DCP- Discharge Planning Updated by [email or web address]: Cassandra Ling on 05/16/20 8:[address] CM contacted Tia @ [facility]. Faxed new referral. CM will continue to follow and assist as needed with discharge planning / needs. DCP- Discharge Planning Updated by [id number]: Ida Diaz on 05/10/20 12:[address] Patient Name: CHON LUI Admission Status: ER Accout number: [id number] Admission Date: 05-04-2020 : 1950 Admission Diagnosis:SEPSIS, UNSPECIFIED ORGANISM Attending: LUIS MIGUEL CORDERO Current LOS: 6 Anticipated DC Date: Planned Disposition: Primary Insurance: MEDICARE A & B Discharge Planning Comments: UPDATED CLINICALS FAXED TO TIA AT [facility], NO BED AVAILABLE AT THIS TIME. STATES POSSIBLE BED OPEN WEDNESDAY. CM TO FOLLOW AND ASSIST NEEDED. Teacher Ballet: Ida Diaz DCP- Discharge Planning Updated by [email or web address]: Ida Diaz on 05/09/20 11:[address] Patient Name: CHON LUI Admission Status: ER Accout number: [id number] Admission Date: 05-04-2020 : 1950 Admission Diagnosis:SEPSIS, UNSPECIFIED ORGANISM Attending: LUIS MIGUEL CORDERO Current LOS: 5 Anticipated DC Date: Planned Disposition: Primary Insurance: MEDICARE A & B Discharge Planning Comments: I AM TALKING WITH TIA AT [facility] TO SEE IF THIS PATIENT WOULD BE APROPRIATE FOR THEM FOR NEXT LEVEL OF CARE. WAITING CALL BACK. CM TO FOLLOW AND ASSIST. 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 THE PLAN IS TO RETURN TO [facility] AT DISCHARGE. SHE IS CURRENTLY ON 2L OF 02 AT [facility]. SHE IS ON 11 LITERS O2 HERE. I CALLED AND SPOKE WITH TYREE AND SHE STATES THEY WILL NEED A COVID TEST AND 02 AT 5 OR BELOW BEFORE THEY CAN TAKE HER BACK. CM TO FOLLOW AND ASSIST NEEDED. Teacher Ballet: Ida Diaz DCPIA - Discharge Planning Initial Assessment Updated by [email or web address]: Ida Diaz on 05/10/20 9:48 am * PCP ROSALBA * Preadmission Environment Skilled Nursing Custodial * Facility Name [facility] * Other Equipment 02 * Additional services required to return to the preadmission environment? No * Can the patient safely return to the preadmission environment? Yes * Has this patient been hospitalized within the prior 30 days at any hospital? Yes Last DP export: 05/16/20 2:47 p Patient Name: CHON LUI Page 86057 at 2120 All edits/amendments must be made on the electronic document DICTATION DATE: 05/16/202119 OUTCOMES MANAGER: NAHUN 05/16/202119 RPT#: [id number] DC DATE: STATUS: ADM IN [facility] [address] [place] [address] END OF REPORT
--- NOTE | 2020-05-16 22:06 | MORECARE ---
CASE MANAGEMENT DISCHARGE SUMMARY PATIENT: CHON LUI UNIT: [id number] ADM DATE: 05/04/20 AGE: 69 : 50 SEX: F ROOM/BED: D.2305 AUTHOR: MONETDOC PHYSICIAN: REFERRING PHYSICIAN: LUIS MIGUEL CORDERO MD DATE OF SERVICE: 05/16/20 Discharge Plan Patient Name: CHON LUI Facility: [facility]:[place] : 1950 Planned Disposition: Anticipated Discharge Date: Discharge Date: Expected LOS: Initial Reviewer: [id number] Initial Review Date: 05/07/2020 Generated: 05/16/20 11:05 pm DCP- Discharge Planning Updated by [id number]: Cassandra Ling on 05/16/20 8:[address] CM contacted Tia @ [facility]. Faxed new referral. CM will continue to follow and assist as needed with discharge planning / needs. DCP- Discharge Planning Updated by [id number]: Ida Diaz on 05/10/20 12:[address] Patient Name: CHON LUI Admission Status: ER Accout number: [id number] Admission Date: 05-04-2020 : 1950 Admission Diagnosis:SEPSIS, UNSPECIFIED ORGANISM Attending: LUIS MIGUEL CORDERO Current LOS: 6 Anticipated DC Date: Planned Disposition: Primary Insurance: MEDICARE A & B Discharge Planning Comments: UPDATED CLINICALS FAXED TO TIA AT [facility], NO BED AVAILABLE AT THIS TIME. STATES POSSIBLE BED OPEN WEDNESDAY. CM TO FOLLOW AND ASSIST NEEDED. Hydroelectric Plant Operator: Ida Diaz DCP- Discharge Planning Updated by [id number]: Ida Diaz on 05/09/20 11:[address] Patient Name: CHON LUI Admission Status: ER Accout number: [id number] Admission Date: 05-04-2020 : 1950 Admission Diagnosis:SEPSIS, UNSPECIFIED ORGANISM Attending: LUIS MIGUEL CORDERO Current LOS: 5 Anticipated DC Date: Planned Disposition: Primary Insurance: MEDICARE A & B Discharge Planning Comments: I AM TALKING WITH TIA AT [facility] TO SEE IF THIS PATIENT WOULD BE APROPRIATE FOR THEM FOR NEXT LEVEL OF CARE. WAITING CALL BACK. CM TO FOLLOW AND ASSIST. 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 THE PLAN IS TO RETURN TO [facility] AT DISCHARGE. SHE IS CURRENTLY ON 2L OF 02 AT [facility]. SHE IS ON 11 LITERS O2 HERE. I CALLED AND SPOKE WITH TYREE AND SHE STATES THEY WILL NEED A COVID TEST AND 02 AT 5 OR BELOW BEFORE THEY CAN TAKE HER BACK. CM TO FOLLOW AND ASSIST NEEDED. Hydroelectric Plant Operator: Ida Diaz DCPIA - Discharge Planning Initial Assessment Updated by [id number]: Ida Diaz on 05/10/20 9:48 am * PCP ROSALBA * Preadmission Environment Detention Mcfp * Facility Name [facility] * Other Equipment 02 * Additional services required to return to the preadmission environment? No * Can the patient safely return to the preadmission environment? Yes * Has this patient been hospitalized within the prior 30 days at any hospital? Yes Last DP export: 05/16/20 8:20 p Patient Name: CHON LUI Page 77920 at 2206 All edits/amendments must be made on the electronic document DICTATION DATE: 05/16/202205 PATTERN CARRIER: NAHUN 05/16/202205 RPT#: [id number] DC DATE: STATUS: ADM IN [facility] [address] [place] [address] END OF REPORT
[2020-05-17] VITALS (25 sets, daily range): BP systolic 82–156; BP diastolic 41–92
[2020-05-17 04:51] LABS: CALCIUM 8.2 mg/dL (8.5-10.1); CARBON DIOXIDE 25.1 mmol/L (21.0-32.0); CHLORIDE - SERUM 105 mmol/L (98-107); CREATININE - SERUM 0.8 mg/dL (0.6-1.3); POTASSIUM - SERUM 3.8 mmol/L (3.5-5.1); SODIUM 137 mmol/L (136-145); eGFR NON AFRICAN AMERICAN 75 mL/min (90-120)
[2020-05-17 04:54] LABS: CALC OSMOLALITY 274 mosm/kg (275-300); GLUCOSE 146 mg/dL (74-106); UREA NITROGEN 8 mg/dL (7-18)
--- NOTE | 2020-05-17 07:10 | NUR ---
REPORT RECEIVED FROM OFF GOING NURSE AND PATIENT CARE ASSUMED. PATIENT LAYING IN BED ON BACK WITH EYES CLOSED AND BREATHING EVENLY ON VENT . WILL CONTINUE WITH PLAN OF CARE. SR UP X 2 BED IN LOW POSITION AND GHULAM LIGHT IN REACH.
--- NOTE | 2020-05-17 12:11 | NUR ---
Nutrition Follow-up: Trach -> vent. Receiving Jevity 1.5 @ 40 mL/hr. Wt: 128.9# (05/17) Labs noted: Glu 146, Ca 8.2 Meds noted: Florajen, Protonix, Sodium Chloride, NS @ 50, electrolyte protocol -RD following.
[2020-05-18] VITALS (24 sets, daily range): BP systolic 90–158; BP diastolic 45–80
--- NOTE | 2020-05-18 05:17 | NUR ---
PRN NORCO 5/325 MG ADMINISTERED PER PT REQUEST/MD ORDER.
[2020-05-18 05:26] LABS: BASOPHILS 0.2 % (0-2); EOSINOPHILS 2.6 % (0-7); HEMATOCRIT 30.9 % (36.0-48.0); HEMOGLOBIN 9.8 g/dL (12-16); IMMATURE GRANULOCYTES 0.5 % (0-5); LYMPHOCYTES 20.7 % (15-50); MCH 28.2 pg (26.0-34.0); MCHC 31.7 g/dL (31.0-37.0); MCV 88.8 fL (80.0-100.0); MEAN PLATELET VOLUME 9.4 fL (7.4-10.4); MONOCYTES 5.6 % (2-11); NEUTROPHILS 70.4 % (40-80); PLATELET COUNT 251 10x3/uL (130-400); RBC 3.48 10x6/uL (4.00-5.40); RDW 16.9 % (11.5-14.5); WBC 6.6 10x3/uL (4.8-10.8)
--- NOTE | 2020-05-18 06:22 | NUR ---
AM LABS REVIEWED, NOTHING TO TREAT PER ELECTROLYTE PROTOCOL.
--- NOTE | 2020-05-18 13:09 | NUR ---
SPOKE WITH PTS FAMILY, UPDATES PROVIDED.
--- NOTE | 2020-05-18 16:27 | NUR ---
SITTING UP IN BED AWAKE WATCHING TV AT THIS TIME. VSS. NO ACUTE DISTRESS NOTED. ASSISTED WITH REPOSITIONING Q2H. NO ACUTE DISTRESS NOTED. CALL LIGHT IN REACH. PT ABLE TO STATE NEEDS. WILL CONTINUE PLAN OF CARE.
[2020-05-19] VITALS (24 sets, daily range): BP systolic 78–141; BP diastolic 38–67
[2020-05-19 05:40] LABS: BASOPHILS 0.1 % (0-2); EOSINOPHILS 1.3 % (0-7); HEMATOCRIT 31.4 % (36.0-48.0); HEMOGLOBIN 10.1 g/dL (12-16); IMMATURE GRANULOCYTES 0.5 % (0-5); MCH 28.7 pg (26.0-34.0); MCHC 32.2 g/dL (31.0-37.0); MCV 89.2 fL (80.0-100.0); MONOCYTES 7.2 % (2-11); NEUTROPHILS 66.9 % (40-80); PLATELET COUNT 295 10x3/uL (130-400); RBC 3.52 10x6/uL (4.00-5.40); RDW 16.8 % (11.5-14.5); WBC 7.8 10x3/uL (4.8-10.8)
[2020-05-19 05:55] LABS: CALC OSMOLALITY 268 mosm/kg (275-300); CALCIUM 8.2 mg/dL (8.5-10.1); CARBON DIOXIDE 32.4 mmol/L (21.0-32.0); CHLORIDE - SERUM 100 mmol/L (98-107); CREATININE - SERUM 0.5 mg/dL (0.6-1.3); GLUCOSE 99 mg/dL (74-106); POTASSIUM - SERUM 3.7 mmol/L (3.5-5.1); SODIUM 135 mmol/L (136-145); UREA NITROGEN 11 mg/dL (7-18); eGFR NON AFRICAN AMERICAN > 90 mL/min (90-120)
--- NOTE | 2020-05-19 11:29 | NUR ---
CHG BATH PROVIDED AT THIS TIME. VSS. NO ACUTE DISTRESS NOTED. FAIRCHILD CARE ALSO PROVIDED. WILL CONTINUE PLAN OF CARE.
--- NOTE | 2020-05-19 15:29 | NUR ---
SITTING UP IN BED WATCHING TV AT THIS TIME. VSS. NO ACUTE DISTRESS NOTED. CALL LIGHT AND PERSONAL ITEMS IN REACH. WILL CONTINUE PLAN OF CARE.
[2020-05-20] VITALS (22 sets, daily range): BP systolic 81–145; BP diastolic 35–60
[2020-05-20 05:01] LABS: BASOPHILS 0.2 % (0-2); EOSINOPHILS 0.9 % (0-7); IMMATURE GRANULOCYTES 0.2 % (0-5); LYMPHOCYTES 26.3 % (15-50); MCH 28.2 pg (26.0-34.0); MCHC 31.6 g/dL (31.0-37.0); MCV 89.1 fL (80.0-100.0); MEAN PLATELET VOLUME 9.5 fL (7.4-10.4); MONOCYTES 8.5 % (2-11); NEUTROPHILS 63.9 % (40-80); RDW 16.8 % (11.5-14.5)
[2020-05-20 05:13] LABS: CALC OSMOLALITY 271 mosm/kg (275-300); CALCIUM 8.1 mg/dL (8.5-10.1); CHLORIDE - SERUM 102 mmol/L (98-107); CREATININE - SERUM 0.6 mg/dL (0.6-1.3); GLUCOSE 112 mg/dL (74-106); POTASSIUM - SERUM 3.5 mmol/L (3.5-5.1); SODIUM 135 mmol/L (136-145); eGFR NON AFRICAN AMERICAN > 90 mL/min (90-120)
[2020-05-20 05:19] LABS: UREA NITROGEN 15 mg/dL (7-18)
[2020-05-20 05:23] LABS: HEMATOCRIT 46.5 % (36.0-48.0); HEMOGLOBIN 14.7 g/dL (12-16); PLATELET COUNT 214 10x3/uL (130-400); RBC 5.22 10x6/uL (4.00-5.40); WBC 4.5 10x3/uL (4.8-10.8)
--- NOTE | 2020-05-20 11:03 | NUR ---
Nutrition follow-up: Pt remains with trach -> vent Jevity 1.5 mary @ 50 ml/hr CPAP trails today Labs reviewed Wt: 141# Pt tolerating TF at goal rate RDN following.
--- NOTE | 2020-05-20 16:51 | MORECARE ---
CASE MANAGEMENT DISCHARGE SUMMARY PATIENT: CHON LUI UNIT: [id number] ADM DATE: 05/04/20 AGE: 69 : 50 SEX: F ROOM/BED: D.2305 AUTHOR: MONET,DOC PHYSICIAN: REFERRING PHYSICIAN: LUI SMIGUEL CORDERO MD DATE OF SERVICE: 05/20/20 Discharge Plan Patient Name: CHON LUI Facility: [facility]:[place] : 1950 Planned Disposition: Anticipated Discharge Date: Discharge Date: Expected LOS: Initial Reviewer: [email or web address] Initial Review Date: 05/07/2020 Generated: 05/20/20 5:50 pm Comments DCP- Discharge Planning Updated by [id number]: Nasreen Nation on 05/20/20 3:[address] CM called and left message for Tia with [facility] requesting update on status of referral. DCP- Discharge Planning Updated by [id number]: Cassandra Ling on 05/16/20 8:[address] CM contacted Tia @ [facility]. Faxed new referral. CM will continue to follow and assist as needed with discharge planning / needs. DCP- Discharge Planning Updated by [email or web address]: Ida Diaz on 05/10/20 12:[address] Patient Name: CHON LUI Admission Status: ER Accout number: [id number] Admission Date: 05-04-2020 : 1950 Admission Diagnosis:SEPSIS, UNSPECIFIED ORGANISM Attending: LUIS MIGUEL CORDERO Current LOS: 6 Anticipated DC Date: Planned Disposition: Primary Insurance: MEDICARE A & B Discharge Planning Comments: UPDATED CLINICALS FAXED TO TIA AT [facility], NO BED AVAILABLE AT THIS TIME. STATES POSSIBLE BED OPEN WEDNESDAY. CM TO FOLLOW AND ASSIST NEEDED. Cathode Ray Tube Assembler: Ida Diaz DCP- Discharge Planning Updated by [id number]: Iad Diaz on 05/09/20 11:[address] Patient Name: CHON LUI Admission Status: ER Accout number: [id number] Admission Date: 05-04-2020 : 1950 Admission Diagnosis:SEPSIS, UNSPECIFIED ORGANISM Attending: LUIS MIGUEL CORDERO Current LOS: 5 Anticipated DC Date: Planned Disposition: Primary Insurance: MEDICARE A & B Discharge Planning Comments: I AM TALKING WITH TIA AT [facility] TO SEE IF THIS PATIENT WOULD BE APROPRIATE FOR THEM FOR NEXT LEVEL OF CARE. WAITING CALL BACK. CM TO FOLLOW AND ASSIST. 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. THE PLAN IS TO RETURN TO [facility] AT DISCHARGE. SHE IS CURRENTLY ON 2L OF [address] [facility]. SHE IS ON 11 LITERS O2 HERE. I CALLED AND SPOKE WITH TYREE AND SHE STATES THEY WILL NEED A COVID TEST AND 02 AT 5 OR BELOW BEFORE THEY CAN TAKE HER BACK. CM TO FOLLOW AND ASSIST NEEDED. Cathode Ray Tube Assembler: Ida Diaz DCPIA - Discharge Planning Initial Assessment Updated by [id number]: Ida Diaz on 05/10/20 9:48 am * PCP ROSALBA * Preadmission Environment Intermediate [facility] * Facility Name [facility] * Other Equipment 02 * Additional services required to return to the preadmission environment? No * Can the patient safely return to the preadmission environment? Yes * Has this patient been hospitalized within the prior 30 days at any hospital? Yes Last DP export: 05/16/20 9:06 p Patient Name: CHON LUI Page 21134 at 1651 All edits/amendments must be made on the electronic document DICTATION DATE: 05/20/201650 LIVESTOCK HAULIER: NAHUN 05/20/201650 RPT#: [id number] DC DATE: STATUS: ADM IN [facility] [address] [place] [address] END OF REPORT
--- NOTE | 2020-05-20 22:04 | NUR ---
PT IN BED, EYES OPEN. ALERT AND ORIENTED, ABLE TO MAKE NEEDS KNOWN. NO CONCERNS NOTED AT THIS TIME. CALL LIGHT IN REACH, SIDE RAILS UP X3, BED IN LOWEST POSITION. WILL CONTINUE TO MONITOR 220 FAMILY CALLED AND WERE UPDATED
[2020-05-21] VITALS (21 sets, daily range): BP systolic 75–127; BP diastolic 37–79
[2020-05-21 10:25] LABS: HEMATOCRIT 31.9 % (36.0-48.0); IMMATURE GRANULOCYTES 0.9 % (0-5); MCH 28.2 pg (26.0-34.0); MCHC 31.3 g/dL (31.0-37.0); MCV 89.9 fL (80.0-100.0); MEAN PLATELET VOLUME 9.2 fL (7.4-10.4); PLATELET COUNT 330 10x3/uL (130-400); RBC 3.55 10x6/uL (4.00-5.40); RDW 16.4 % (11.5-14.5); WBC 9.7 10x3/uL (4.8-10.8)
[2020-05-21 10:40] LABS: ALKALINE PHOSPHATASE 99 U/L (30-120); ALT (SGPT) 27 U/L (10-68); BILIRUBIN - TOTAL 0.23 mg/dL (0.2-1.3); CALC OSMOLALITY 265 mosm/kg (275-300); CALCIUM 8.5 mg/dL (8.5-10.1); CARBON DIOXIDE 28.7 mmol/L (21.0-32.0); CHLORIDE - SERUM 100 mmol/L (98-107); CREATININE - SERUM 0.5 mg/dL (0.6-1.3); GLUCOSE 98 mg/dL (74-106); POTASSIUM - SERUM 4.5 mmol/L (3.5-5.1); PROTEIN - SERUM 6.3 g/dL (6.4-8.2); SODIUM 132 mmol/L (136-145); UREA NITROGEN 14 mg/dL (7-18); eGFR NON AFRICAN AMERICAN > 90 mL/min (90-120)
[2020-05-21 10:52] LABS: LYMPHOCYTES 10 % (15-50); MONOCYTES 6 % (2-11); NEUTROPHILS 84 % (40-80)
[2020-05-21 10:58] LABS: BASOPHILS 0.1 % (0-2); EOSINOPHILS 2.1 % (0-7)
[2020-05-22] VITALS (15 sets, daily range): BP systolic 90–142; BP diastolic 32–59
[2020-05-22 04:45] LABS: BASOPHILS 0.3 % (0-2); EOSINOPHILS 3.1 % (0-7); HEMATOCRIT 32.3 % (36.0-48.0); HEMOGLOBIN 9.9 g/dL (12-16); IMMATURE GRANULOCYTES 1.5 % (0-5); LYMPHOCYTES 38.6 % (15-50); MCH 27.7 pg (26.0-34.0); MCHC 30.7 g/dL (31.0-37.0); MCV 90.2 fL (80.0-100.0); MEAN PLATELET VOLUME 9.1 fL (7.4-10.4); MONOCYTES 10.2 % (2-11); NEUTROPHILS 46.3 % (40-80); PLATELET COUNT 323 10x3/uL (130-400); RBC 3.58 10x6/uL (4.00-5.40); RDW 16.3 % (11.5-14.5)
[2020-05-22 04:52] LABS: WBC 5.8 10x3/uL (4.8-10.8)
[2020-05-22 05:10] LABS: ALKALINE PHOSPHATASE 109 U/L (30-120); ALT (SGPT) 25 U/L (10-68); CALC OSMOLALITY 272 mosm/kg (275-300); CALCIUM 8.5 mg/dL (8.5-10.1); CARBON DIOXIDE 30.9 mmol/L (21.0-32.0); CHLORIDE - SERUM 102 mmol/L (98-107); CREATININE - SERUM 0.5 mg/dL (0.6-1.3); GLUCOSE 103 mg/dL (74-106); MAGNESIUM - SERUM 2.6 mg/dL (1.8-2.4); PHOSPHOROUS 3.6 mg/dL (2.5-4.9); POTASSIUM - SERUM 4.6 mmol/L (3.5-5.1); PROTEIN - SERUM 6.2 g/dL (6.4-8.2); SODIUM 136 mmol/L (136-145); UREA NITROGEN 16 mg/dL (7-18); eGFR NON AFRICAN AMERICAN > 90 mL/min (90-120)
--- NOTE | 2020-05-22 11:19 | NUR ---
Nutrition Follow-up: Trach->vent. Receiving Jevity 1.5 @ 40 mL/hr; tolerating per nursing. Noted TF goal rate was increased to 50 mL/hr on 05/[address] Ly. Diet: Jevity 1.5 @ 50 mL/hr Last BM: 05/21 per chart Labs noted: Mg 2.6, Alb 2.0 Meds noted: Protonix, Florajen -Rec increase to goal rate of 50 mL/hr as tolerated. -RD following.
--- NOTE | 2020-05-23 02:31 | NUR ---
I have reviewed this patient and I concur with the Shift Assessment completed by the Licensed Practical Nurse today this shift.
[2020-05-23 04:00] VITALS: BP 115/50
[2020-05-23 08:00] VITALS: BP 150/63
[2020-05-23 10:14] LABS: BASOPHILS 0.3 % (0-2); EOSINOPHILS 1.6 % (0-7); HEMATOCRIT 36.8 % (36.0-48.0); HEMOGLOBIN 11.7 g/dL (12-16); IMMATURE GRANULOCYTES 0.9 % (0-5); LYMPHOCYTES 33.1 % (15-50); MCH 28.7 pg (26.0-34.0); MCHC 31.8 g/dL (31.0-37.0); MCV 90.2 fL (80.0-100.0); MEAN PLATELET VOLUME 8.7 fL (7.4-10.4); NEUTROPHILS 56.1 % (40-80); PLATELET COUNT 360 10x3/uL (130-400); RBC 4.08 10x6/uL (4.00-5.40); RDW 16.2 % (11.5-14.5)
[2020-05-23 10:19] LABS: WBC 7.5 10x3/uL (4.8-10.8)
--- NOTE | 2020-05-23 10:20 | MORECARE ---
CASE MANAGEMENT DISCHARGE SUMMARY PATIENT: CHON LUI UNIT: [id number] ADM DATE: 05/04/20 AGE: 69 : 50 SEX: F ROOM/BED: D.2224 AUTHOR: MONETDOC PHYSICIAN: REFERRING PHYSICIAN: LUIS MIGUEL CORDERO MD DATE OF SERVICE: 05/23/20 Discharge Plan Patient Name: CHON LUI Facility: [facility]:[place] : 1950 Planned Disposition: Anticipated Discharge Date: Discharge Date: Expected LOS: Initial Reviewer: [email or web address] Initial Review Date: 05/07/2020 Generated: 05/23/20 11:19 am Comments DCP- Discharge Planning Updated by [id number]: Nasreen Nation on 05/23/20 9:[address] CM received call back from Tia at [facility] stating that their facility is closing for 10 days to do "a deep clean" d/t increased COVID activity at their facility. States she will be back in her office 05/31/20 to start accepting referrals for an anticipated re-open date of 06/03/20. CM will contact family about selecting a different LTACH. DCP- Discharge Planning Updated by [email or web address]: Nasreen Nation on 05/20/20 3:[address] CM called and left message for Tia with [facility] requesting update on status of referral. DCP- Discharge Planning Updated by [id number]: Cassandra Ling on 05/16/20 8:[address] CM contacted Tia @ [facility]. Faxed new referral. CM will continue to follow and assist as needed with discharge planning / needs. DCP- Discharge Planning Updated by [id number]: Ida Diaz on 05/10/20 12:[address] Patient Name: CHON LUI Admission Status: ER Accout number: [id number] Admission Date: 05-04-2020 : 1950 Admission Diagnosis:SEPSIS, UNSPECIFIED ORGANISM Attending: LUIS MIGUEL CORDERO Current LOS: 6 Anticipated DC Date: Planned Disposition: Primary Insurance: MEDICARE A & B Discharge Planning Comments: UPDATED CLINICALS FAXED TO TIA AT [facility], NO BED AVAILABLE AT THIS TIME. STATES POSSIBLE BED OPEN WEDNESDAY. CM TO FOLLOW AND ASSIST NEEDED. Supervisor Lens Generating: Ida Diaz DCP- Discharge Planning Updated by [id number]: dIa Diaz on 05/09/20 11:[address] Patient Name: CHON LUI Admission Status: ER Accout number: [id number] Admission Date: 05-04-2020 : 1950 Admission Diagnosis:SEPSIS, UNSPECIFIED ORGANISM Attending: LUIS MIGUEL CORDERO Current LOS: 5 Anticipated DC Date: Planned Disposition: Primary Insurance: MEDICARE A & B Discharge Planning Comments: I AM TALKING WITH TIA AT [facility] TO SEE IF THIS PATIENT WOULD BE APROPRIATE FOR THEM FOR NEXT LEVEL OF CARE. WAITING CALL BACK. CM TO FOLLOW AND ASSIST. 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 THE PLAN IS TO RETURN TO [facility] AT DISCHARGE. SHE IS CURRENTLY ON 2L OF 02 AT [facility]. SHE IS ON 11 LITERS O2 HERE. I CALLED AND SPOKE WITH TYREE AND SHE STATES THEY WILL NEED A COVID TEST AND 02 AT 5 OR BELOW BEFORE THEY CAN TAKE HER BACK. CM TO FOLLOW AND ASSIST NEEDED. Supervisor Lens Generating: Ida Diaz DCA - Discharge Planning Initial Assessment Updated by [email or web address]: Ida Diaz on 05/10/20 9:48 am * PCP ROSALBA * Preadmission Environment Long-Term Snf * Facility Name [facility] * Other Equipment 02 * Additional services required to return to the preadmission environment? No * Can the patient safely return to the preadmission environment? Yes * Has this patient been hospitalized within the prior 30 days at any hospital? Yes Last DP export: 05/22/20 8:59 a Patient Name: CHON LUI Page 80395 at 1020 All edits/amendments must be made on the electronic document DICTATION DATE: 05/23/20 1019 FIELD ASSEMBLY SUPERVISOR: NAHUN 05/23/20 1019 RPT#: [id number] DC DATE: STATUS: ADM IN [facility] [address] [place] [address] END OF REPORT
[2020-05-23 10:50] LABS: ALBUMIN 2.5 g/dL (3.4-5.0); ALKALINE PHOSPHATASE 149 U/L (30-120); BILIRUBIN - TOTAL 0.22 mg/dL (0.2-1.3); CALC OSMOLALITY 273 mosm/kg (275-300); CALCIUM 8.7 mg/dL (8.5-10.1); CARBON DIOXIDE 33.3 mmol/L (21.0-32.0); CHLORIDE - SERUM 100 mmol/L (98-107); CREATININE - SERUM 0.6 mg/dL (0.6-1.3); GLUCOSE 117 mg/dL (74-106); POTASSIUM - SERUM 4.7 mmol/L (3.5-5.1); SODIUM 136 mmol/L (136-145); UREA NITROGEN 16 mg/dL (7-18); eGFR NON AFRICAN AMERICAN > 90 mL/min (90-120)
[2020-05-23 10:53] LABS: ALT (SGPT) 37 U/L (10-68)
[2020-05-23 11:56] VITALS: BP 116/43
[2020-05-23 16:17] VITALS: BP 133/52
[2020-05-23 20:00] VITALS: BP 127/42
[2020-05-24 04:00] VITALS: BP 121/41
--- NOTE | 2020-05-24 04:04 | NUR ---
I have reviewed this patient and I concur with the Shift Assessment completed by the Licensed Practical Nurse today this shift.
[2020-05-24 07:26] LABS: BASOPHILS 0.5 % (0-2); EOSINOPHILS 1.5 % (0-7); HEMATOCRIT 34.4 % (36.0-48.0); HEMOGLOBIN 10.8 g/dL (12-16); IMMATURE GRANULOCYTES 0.5 % (0-5); LYMPHOCYTES 26.4 % (15-50); MCH 28.2 pg (26.0-34.0); MCHC 31.4 g/dL (31.0-37.0); MCV 89.8 fL (80.0-100.0); MONOCYTES 8.5 % (2-11); NEUTROPHILS 62.6 % (40-80); PLATELET COUNT 379 10x3/uL (130-400); RBC 3.83 10x6/uL (4.00-5.40); RDW 16.1 % (11.5-14.5); WBC 8.9 10x3/uL (4.8-10.8)
[2020-05-24 07:32] LABS: ALBUMIN 2.3 g/dL (3.4-5.0); ALKALINE PHOSPHATASE 133 U/L (30-120); ALT (SGPT) 32 U/L (10-68); BILIRUBIN - TOTAL 0.23 mg/dL (0.2-1.3); CALC OSMOLALITY 269 mosm/kg (275-300); CALCIUM 8.8 mg/dL (8.5-10.1); CARBON DIOXIDE 30.9 mmol/L (21.0-32.0); CHLORIDE - SERUM 100 mmol/L (98-107); CREATININE - SERUM 0.5 mg/dL (0.6-1.3); GLUCOSE 132 mg/dL (74-106); POTASSIUM - SERUM 4.5 mmol/L (3.5-5.1); PROTEIN - SERUM 7.1 g/dL (6.4-8.2); SODIUM 134 mmol/L (136-145); UREA NITROGEN 13 mg/dL (7-18); eGFR NON AFRICAN AMERICAN > 90 mL/min (90-120)
--- NOTE | 2020-05-24 08:00 | NUR ---
ALERT AND ORIENTED WITH GENERALIZED WEAKNESS CVL NOTED TO RIGHT GROIN WITH NO S/S OF INFECTION/INFILTRATION WITH IVF INFUSING AT PRESCRIBED RATE. PEG TUBE INFUSING JEVITY 1.5 AT 40 CC/HR. FAIRCHILD CATH PATENT WITH JEIMY URINE WITH PERICARE DONE WITH EACH INCONT. EPISODE. REFUSES TO BE TURNED AT THIS TIME. TRACH INTACT WITH 30%O2. ENCOURAGED TO USE CALL LIGHT FOR ASSSIT.
[2020-05-24 09:29] VITALS: BP 137/50
--- NOTE | 2020-05-24 10:46 | MORECARE ---
CASE MANAGEMENT DISCHARGE SUMMARY PATIENT: CHON LUI UNIT: [id number] ADM DATE: 05/04/20 AGE: 69 : 50 SEX: F ROOM/BED: D.2224 AUTHOR: MONET,DOC PHYSICIAN: REFERRING PHYSICIAN: LUIS MIGUEL CORDERO MD DATE OF SERVICE: 05/24/20 Discharge Plan Patient Name: CHON LUI Facility: [facility]:[place] : 1950 Planned Disposition: Anticipated Discharge Date: Discharge Date: Expected LOS: Initial Reviewer: [email or web address] Initial Review Date: 05/07/2020 Generated: 05/24/20 11:45 am Comments DCP- Discharge Planning Updated by [email or web address]: Ida Diaz on 05/24/20 9:[address] Patient Name: CHON LUI Admission Status: ER Accout number: [id number] Admission Date: 05-04-2020 : 1950 Admission Diagnosis:SEPSIS, UNSPECIFIED ORGANISM Attending: LUIS MIGUEL CORDERO Current LOS: 20 Anticipated DC Date: Planned Disposition: Primary Insurance: MEDICARE A & B Discharge Planning Comments: CM SPOKE WITH PATIENT ABOUT LTAC FACILITIES OUTSIDE [place]. SHE IS AGREEABLE TO LTAC IN [facility]. I WILL FAX REFERRAL TO [facility] TODAY. Dirt Shoveler: Ida Diaz DCP- Discharge Planning Updated by [id number]: Nasreen Nation on 05/23/20 9:[address] CM received call back from Tia at [facility] stating that their facility is closing for 10 days to do "a deep clean" d/t increased COVID activity at their facility. States she will be back in her office 05/31/20 to start accepting referrals for an anticipated re-open date of 06/03/20. CM will contact family about selecting a different LTACH. DCP- Discharge Planning Updated by [email or web address]: Nasreen Nation on 05/20/20 3:[address] CM called and left message for Tia with [facility] requesting update on status of referral. DCP- Discharge Planning Updated by [id number]: Cassandra Ling on 05/16/20 8:[address] CM contacted Tia @ [facility]. Faxed new referral. CM will continue to follow and assist as needed with discharge planning / needs. DCP- Discharge Planning Updated by [email or web address]: Ida Diaz on 05/10/20 12:[address] Patient Name: CHON LUI Admission Status: ER Accout number: [id number] Admission Date: 05-04-2020 : 1950 Admission Diagnosis:SEPSIS, UNSPECIFIED ORGANISM Attending: LUIS MIGUEL CORDERO Current LOS: 6 Anticipated DC Date: Planned Disposition: Primary Insurance: MEDICARE A & B Discharge Planning Comments: UPDATED CLINICALS FAXED TO TIA AT [facility], NO BED AVAILABLE AT THIS TIME. STATES POSSIBLE BED OPEN WEDNESDAY. CM TO FOLLOW AND ASSIST NEEDED. Dirt Shoveler: Ida Diaz DCP- Discharge Planning Updated by [id number]: Ida Diaz on 05/09/20 11:[address] Patient Name: CHON LUI Admission Status: ER Accout number: [id number] Admission Date: 05-04-2020 : 1950 Admission Diagnosis:SEPSIS, UNSPECIFIED ORGANISM Attending: LUIS MIGUEL CORDERO Current LOS: 5 Anticipated DC Date: Planned Disposition: Primary Insurance: MEDICARE A & B Discharge Planning Comments: I AM TALKING WITH TIA AT [facility] TO SEE IF THIS PATIENT WOULD BE APROPRIATE FOR THEM FOR NEXT LEVEL OF CARE. WAITING CALL BACK. CM TO FOLLOW AND ASSIST. 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 THE PLAN IS TO RETURN TO [facility] AT DISCHARGE. SHE IS CURRENTLY ON 2L OF 02 AT [facility]. SHE IS ON 11 LITERS O2 HERE. I CALLED AND SPOKE WITH TYREE AND SHE STATES THEY WILL NEED A COVID TEST AND 02 AT 5 OR BELOW BEFORE THEY CAN TAKE HER BACK. CM TO FOLLOW AND ASSIST NEEDED. Dirt Shoveler: Ida Diaz DCPIA - Discharge Planning Initial Assessment Updated by [email or web address]: Ida Diaz on 05/10/20 9:48 am * PCP ROSALBA * Preadmission Environment Shower [facility] * Facility Name [facility] * Other Equipment 02 * Additional services required to return to the preadmission environment? No * Can the patient safely return to the preadmission environment? Yes * Has this patient been hospitalized within the prior 30 days at any hospital? Yes Last DP export: 05/23/20 9:20 a Patient Name: CHON LUI Page 86557 at 1046 All edits/amendments must be made on the electronic document DICTATION DATE: 05/24/201044 DEVIL TENDER: NAHUN 05/24/201044 RPT#: [id number] DC DATE: STATUS: ADM IN [facility] [address] [place] [address] END OF REPORT
--- NOTE | 2020-05-24 10:57 | MORECARE ---
CASE MANAGEMENT DISCHARGE SUMMARY PATIENT: CHON LUI UNIT: [id number] ADM DATE: 05/04/20 AGE: 69 : 50 SEX: F ROOM/BED: D.2224 AUTHOR: MONET,DOC PHYSICIAN: REFERRING PHYSICIAN: LUIS MIGUEL CORDERO MD DATE OF SERVICE: 05/24/20 Discharge Plan Patient Name: CHON LUI Facility: [facility]:[place] : 1950 Planned Disposition: Anticipated Discharge Date: Discharge Date: Expected LOS: Initial Reviewer: [id number] Initial Review Date: 05/07/2020 Generated: 05/24/20 11:56 am Comments DCP- Discharge Planning Updated by [id number]: Ida Diaz on 05/24/20 9:[address] Patient Name: CHON LUI Admission Status: ER Accout number: [id number] Admission Date: 05-04-2020 : 1950 Admission Diagnosis:SEPSIS, UNSPECIFIED ORGANISM Attending: LUIS MIGUEL CORDERO Current LOS: 20 Anticipated DC Date: Planned Disposition: Primary Insurance: MEDICARE A & B Discharge Planning Comments: CM SPOKE WITH PATIENT ABOUT LTAC FACILITIES OUTSIDE [place]. SHE IS AGREEABLE TO LTAC IN [facility]. I WILL FAX REFERRAL TO [facility] TODAY. Quality Analyst: Ida Diaz DCP- Discharge Planning Updated by [email or web address]: Nasreen Nation on 05/23/20 9:[address] CM received call back from Tia at [facility] stating that their facility is closing for 10 days to do "a deep clean" d/t increased COVID activity at their facility. States she will be back in her office 05/31/20 to start accepting referrals for an anticipated re-open date of 06/03/20. CM will contact family about selecting a different LTACH. DCP- Discharge Planning Updated by [email or web address]: Nasreen Nation on 05/20/20 3:[address] CM called and left message for Tia with [facility] requesting update on status of referral. DCP- Discharge Planning Updated by [email or web address]: Cassandra Ling on 05/16/20 8:[address] CM contacted Tia @ [facility]. Faxed new referral. CM will continue to follow and assist as needed with discharge planning / needs. DCP- Discharge Planning Updated by [email or web address]: Ida Diaz on 05/10/20 12:[address] Patient Name: CHON LUI Admission Status: ER Accout number: [id number] Admission Date: 05-04-2020 : 1950 Admission Diagnosis:SEPSIS, UNSPECIFIED ORGANISM Attending: LUIS MIGUEL CORDERO Current LOS: 6 Anticipated DC Date: Planned Disposition: Primary Insurance: MEDICARE A & B Discharge Planning Comments: UPDATED CLINICALS FAXED TO TIA AT [facility], NO BED AVAILABLE AT THIS TIME. STATES POSSIBLE BED OPEN WEDNESDAY. CM TO FOLLOW AND ASSIST NEEDED. Quality Analyst: Ida Diaz DCP- Discharge Planning Updated by [email or web address]: Ida Diaz on 05/09/20 11:[address] Patient Name: CHON LUI Admission Status: ER Accout number: [id number] Admission Date: 05-04-2020 : 1950 Admission Diagnosis:SEPSIS, UNSPECIFIED ORGANISM Attending: LUIS MIGUEL CORDERO Current LOS: 5 Anticipated DC Date: Planned Disposition: Primary Insurance: MEDICARE A & B Discharge Planning Comments: I AM TALKING WITH TIA AT [facility] TO SEE IF THIS PATIENT WOULD BE APROPRIATE FOR THEM FOR NEXT LEVEL OF CARE. WAITING CALL BACK. CM TO FOLLOW AND ASSIST. 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 THE PLAN IS TO RETURN TO [facility] AT DISCHARGE. SHE IS CURRENTLY ON 2L OF 02 AT [facility]. SHE IS ON 11 LITERS O2 HERE. I CALLED AND SPOKE WITH TYREE AND SHE STATES THEY WILL NEED A COVID TEST AND 02 AT 5 OR BELOW BEFORE THEY CAN TAKE HER BACK. CM TO FOLLOW AND ASSIST NEEDED. Quality Analyst: Ida Diaz DCPIA - Discharge Planning Initial Assessment Updated by [id number]: Ida Diaz on 05/10/20 9:48 am * PCP ROSALBA * Preadmission Environment Brazing Machine Tender [facility] * Facility Name [facility] * Other Equipment 02 * Additional services required to return to the preadmission environment? No * Can the patient safely return to the preadmission environment? Yes * Has this patient been hospitalized within the prior 30 days at any hospital? Yes External Providers External Provider: [facility] Next Contact Date: Service Request Date: Service Type: Resolution: Reviewer: Comments: Last DP export: 05/24/20 9:46 a Patient Name: CHON LUI Page 38129 at 1057 All edits/amendments must be made on the electronic document DICTATION DATE: 05/24/20 105 MOBILE MARKETING MANAGER: NAHUN 05/24/20 1056 RPT#: [id number] DC DATE: STATUS: ADM IN [facility] [address] [place] [address] END OF REPORT
--- NOTE | 2020-05-24 12:00 | NUR ---
OT NOTE: PERFORMED BED MOB WITH MOD ASSIST; SUPINE TO SIT WITH MAX ASSIST. TOLERATED SITTING ON EOB FOR ONLY A FEW MIN AND BECAME VERY FATIGUED AND REQUESTED TO LIE BACK DOWN. PT ABLE TO WASH FACE AND HANDS WITH WASH CLOTH BUT REQUIRES EXT ASSIST WITH REMAIND OF ADLS. PT REFUSED TO ATTEMPT TO STAND OR TRANSFER TODAY. BRIAN BYRNE,OTR/L [phone]
[2020-05-24 13:03] VITALS: BP 137/63
[2020-05-24 16:34] VITALS: BP 135/51
[2020-05-24 20:00] VITALS: BP 108/48
[2020-05-25 04:00] VITALS: BP 101/54
[2020-05-25 07:18] LABS: BASOPHILS 0.4 % (0-2); EOSINOPHILS 1.5 % (0-7); HEMATOCRIT 31.5 % (36.0-48.0); HEMOGLOBIN 9.7 g/dL (12-16); IMMATURE GRANULOCYTES 0.5 % (0-5); LYMPHOCYTES 32.9 % (15-50); MCH 27.7 pg (26.0-34.0); MCHC 30.8 g/dL (31.0-37.0); MEAN PLATELET VOLUME 9.1 fL (7.4-10.4); MONOCYTES 10.7 % (2-11); PLATELET COUNT 344 10x3/uL (130-400); RDW 15.9 % (11.5-14.5); WBC 7.8 10x3/uL (4.8-10.8)
[2020-05-25 07:45] LABS: ALBUMIN 2.1 g/dL (3.4-5.0); ALKALINE PHOSPHATASE 121 U/L (30-120); ALT (SGPT) 26 U/L (10-68); BILIRUBIN - TOTAL 0.27 mg/dL (0.2-1.3); CALC OSMOLALITY 275 mosm/kg (275-300); CALCIUM 8.6 mg/dL (8.5-10.1); CARBON DIOXIDE 30.1 mmol/L (21.0-32.0); CHLORIDE - SERUM 101 mmol/L (98-107); CREATININE - SERUM 0.6 mg/dL (0.6-1.3); GLUCOSE 123 mg/dL (74-106); POTASSIUM - SERUM 4.6 mmol/L (3.5-5.1); PROTEIN - SERUM 6.1 g/dL (6.4-8.2); SODIUM 137 mmol/L (136-145); UREA NITROGEN 16 mg/dL (7-18); eGFR NON AFRICAN AMERICAN > 90 mL/min (90-120)
[2020-05-25 09:21] VITALS: BP 98/40
--- NOTE | 2020-05-25 10:33 | NUR ---
PT NOT VERBAL DUE TO TRACH, BUT CAN COMMUNICATE NEEDS BY MOUTHING WORDS. CRACKLES TO ALL PRUITT. PEG TUBE IN USE, FEEDS RUNNING AT 50 ML/HR. RIGHT FEMORAL TRIPLE LUMEN IN PLACE, PATENT, DRESSING CDI. FAIRCHILD IN PLACE. PT REPORTING NO PAIN AT THIS TIME. BED LOW, CALL LIGHT IN REACH. NO OTHER NEEDS AT THIS TIME.
--- NOTE | 2020-05-25 11:53 | NUR ---
LOW BP CALLED TO DRGeovanny ORDERED 500ML BOLUS. STARTED AND MONITORING.
--- NOTE | 2020-05-25 13:13 | NUR ---
500 ML BOLUS COMPLETE. BP 100/38. PT STILL ASYMPTOMATIC
[2020-05-25 14:25] VITALS: BP 88/34
[2020-05-25 17:14] VITALS: BP 98/39
[2020-05-25 20:00] VITALS: BP 99/36
[2020-05-26] VITALS: BP 121/55
[2020-05-26 04:00] VITALS: BP 109/24
[2020-05-26 06:49] LABS: BASOPHILS 0.6 % (0-2); HEMATOCRIT 29.2 % (36.0-48.0); HEMOGLOBIN 9.1 g/dL (12-16); IMMATURE GRANULOCYTES 0.3 % (0-5); LYMPHOCYTES 30.8 % (15-50); MCHC 31.2 g/dL (31.0-37.0); MCV 89.8 fL (80.0-100.0); MEAN PLATELET VOLUME 9.3 fL (7.4-10.4); MONOCYTES 10.4 % (2-11); NEUTROPHILS 55.9 % (40-80); PLATELET COUNT 319 10x3/uL (130-400); RBC 3.25 10x6/uL (4.00-5.40); RDW 15.9 % (11.5-14.5); WBC 6.4 10x3/uL (4.8-10.8)
[2020-05-26 07:08] LABS: ALKALINE PHOSPHATASE 117 U/L (30-120); BILIRUBIN - TOTAL 0.22 mg/dL (0.2-1.3); CALC OSMOLALITY 274 mosm/kg (275-300); CALCIUM 8.6 mg/dL (8.5-10.1); CARBON DIOXIDE 30.5 mmol/L (21.0-32.0); CHLORIDE - SERUM 104 mmol/L (98-107); CREATININE - SERUM 0.5 mg/dL (0.6-1.3); GLUCOSE 111 mg/dL (74-106); POTASSIUM - SERUM 4.4 mmol/L (3.5-5.1); PROTEIN - SERUM 6.4 g/dL (6.4-8.2); SODIUM 136 mmol/L (136-145); UREA NITROGEN 17 mg/dL (7-18); eGFR NON AFRICAN AMERICAN > 90 mL/min (90-120)
[2020-05-26 07:16] LABS: ALT (SGPT) 36 U/L (10-68)
[2020-05-26 08:16] VITALS: BP 100/33
--- NOTE | 2020-05-26 09:00 | NUR ---
ALERT AND ORIENTED X4. SKIN INTACT WITH GENERALIZED WEAKNESS NOTED. IVF INFUSING TO RT. GROIN AT PRESCRIBED RATE. TRACH INTACT WITH 30% O2 PER TRACH COLLAR AND SUCTIONED PRN WITH LIGHT BROWN SECRETIONS. NO DYSPNEA WITH RESP. SHALLOW X4 ANTERIOR. ENCOURAGED TO USE CALL LIGHT FOR ASSSIT.
[2020-05-26 12:36] VITALS: BP 110/41
[2020-05-26 16:43] VITALS: BP 98/41
[2020-05-26 20:42] VITALS: BP 127/49
[2020-05-27 01:24] VITALS: BP 96/42
[2020-05-27 06:23] VITALS: BP 89/36
[2020-05-27 08:00] VITALS: BP 105/39
[2020-05-27 08:26] LABS: BASOPHILS 0.7 % (0-2); EOSINOPHILS 2.2 % (0-7); HEMATOCRIT 28.8 % (36.0-48.0); HEMOGLOBIN 8.8 g/dL (12-16); IMMATURE GRANULOCYTES 0.4 % (0-5); MCH 27.7 pg (26.0-34.0); MCHC 30.6 g/dL (31.0-37.0); MCV 90.6 fL (80.0-100.0); MEAN PLATELET VOLUME 9.1 fL (7.4-10.4); MONOCYTES 9.4 % (2-11); NEUTROPHILS 52.3 % (40-80); PLATELET COUNT 296 10x3/uL (130-400); RBC 3.18 10x6/uL (4.00-5.40); RDW 15.8 % (11.5-14.5); WBC 5.6 10x3/uL (4.8-10.8)
[2020-05-27 08:54] LABS: ALBUMIN 1.9 g/dL (3.4-5.0); ALKALINE PHOSPHATASE 109 U/L (30-120); ALT (SGPT) 39 U/L (10-68); CALC OSMOLALITY 277 mosm/kg (275-300); CALCIUM 8.5 mg/dL (8.5-10.1); CHLORIDE - SERUM 102 mmol/L (98-107); CREATININE - SERUM 0.5 mg/dL (0.6-1.3); GLUCOSE 109 mg/dL (74-106); POTASSIUM - SERUM 4.5 mmol/L (3.5-5.1); PROTEIN - SERUM 6.3 g/dL (6.4-8.2); SODIUM 138 mmol/L (136-145); UREA NITROGEN 15 mg/dL (7-18); eGFR NON AFRICAN AMERICAN > 90 mL/min (90-120)
[2020-05-27 12:20] VITALS: BP 96/53
[2020-05-27 16:00] VITALS: BP 126/47
--- NOTE | 2020-05-27 18:45 | NUR ---
I have reviewed this patient and I concur with the Shift Assessment completed by the Licensed Practical Nurse today this shift.
--- NOTE | 2020-05-27 19:27 | NUR ---
OT NOTE: PT REQUIRED MAX A FOR BED MOB TASKS. PT REQUIRED MAX A FOR SUPINE TO SIT. PT REQUIRED MAX A FOR POSITIONING. PT COMPLETED FACE AND HAND HYGIENE WITH MIN A. [phone] THANK YOU,CHADWICK BOLAÑOS
[2020-05-27 20:00] VITALS: BP 114/45
[2020-05-28 04:00] VITALS: BP 133/51
[2020-05-28 06:23] LABS: BASOPHILS 0.6 % (0-2); EOSINOPHILS 1.6 % (0-7); HEMOGLOBIN 9.5 g/dL (12-16); IMMATURE GRANULOCYTES 0.5 % (0-5); LYMPHOCYTES 30.7 % (15-50); MCH 27.8 pg (26.0-34.0); MCHC 30.6 g/dL (31.0-37.0); MCV 90.6 fL (80.0-100.0); MONOCYTES 11.5 % (2-11); NEUTROPHILS 55.1 % (40-80); PLATELET COUNT 341 10x3/uL (130-400); RBC 3.42 10x6/uL (4.00-5.40); RDW 15.8 % (11.5-14.5); WBC 8.6 10x3/uL (4.8-10.8)
[2020-05-28 07:27] LABS: ALBUMIN 2.2 g/dL (3.4-5.0); ALKALINE PHOSPHATASE 119 U/L (30-120); ALT (SGPT) 40 U/L (10-68); BILIRUBIN - TOTAL 0.09 mg/dL (0.2-1.3); CALC OSMOLALITY 266 mosm/kg (275-300); CALCIUM 9.1 mg/dL (8.5-10.1); CARBON DIOXIDE 28.7 mmol/L (21.0-32.0); CHLORIDE - SERUM 99 mmol/L (98-107); CREATININE - SERUM 0.5 mg/dL (0.6-1.3); GLUCOSE 107 mg/dL (74-106); PROTEIN - SERUM 7.1 g/dL (6.4-8.2); SODIUM 133 mmol/L (136-145); UREA NITROGEN 15 mg/dL (7-18); eGFR NON AFRICAN AMERICAN > 90 mL/min (90-120)
[2020-05-28 08:00] VITALS: BP 125/43
--- NOTE | 2020-05-28 10:19 | MORECARE ---
CASE MANAGEMENT DISCHARGE SUMMARY PATIENT: CHON LUI UNIT: [id number] ADM DATE: 05/04/20 AGE: 69 : 50 SEX: F ROOM/BED: D.2224 AUTHOR: NATALIA HEALY PHYSICIAN: REFERRING PHYSICIAN: LUIS MIGUEL CORDERO MD DATE OF SERVICE: 05/28/20 Discharge Plan Patient Name: CHON LUI Facility: [facility]:[place] : 1950 Planned Disposition: Anticipated Discharge Date: Discharge Date: Expected LOS: Initial Reviewer: [email or web address] Initial Review Date: 05/07/2020 Generated: 05/28/20 11:18 am Comments DCP- Discharge Planning Updated by [email or web address]: Ida Diaz on 05/28/20 9:[address] Patient Name: CHON LUI Admission Status: ER Accout number: [id number] Admission Date: 05-04-2020 : 1950 Admission Diagnosis:SEPSIS, UNSPECIFIED ORGANISM Attending: LUIS MIGUEL CORDERO Current LOS: 24 Anticipated DC Date: Planned Disposition: Primary Insurance: MEDICARE A & B Discharge Planning Comments: CALLED [facility] AND FAXED CLINICALS, PATIENT READY FOR DC BACK TO THEIR FACILITY. WAITING CALL BACK FROM [facility]. Hair Rooting Machine Operator: Ida Diaz DCP- Discharge Planning Updated by [email or web address]: Ida Diaz on 05/24/20 9:[address] Patient Name: CHON LUI Admission Status: ER Accout number: [id number] Admission Date: 05-04-2020 : 1950 Admission Diagnosis:SEPSIS, UNSPECIFIED ORGANISM Attending: LUIS MIGUEL CORDERO Current LOS: 20 Anticipated DC Date: Planned Disposition: Primary Insurance: MEDICARE A & B Discharge Planning Comments: CM SPOKE WITH PATIENT ABOUT LTAC FACILITIES OUTSIDE [place]. SHE IS AGREEABLE TO LTAC IN [facility]. I WILL FAX REFERRAL TO [facility] TODAY. Hair Rooting Machine Operator: Ida Diaz DCP- Discharge Planning Updated by [id number]: Nasreen Nation on 05/23/20 9:[address] CM received call back from [facility] stating that their facility is closing for 10 days to do "a deep clean" d/t increased COVID activity at their facility. States she will be back in her office 05/31/20 to start accepting referrals for an anticipated re-open date of 06/03/20. CM will contact family about selecting a different [facility]. DCP- Discharge Planning Updated by [id number]: Nasreen Nation on 05/20/20 3:[address] CM called and left message for Tia with [facility] requesting update on status of referral. DCP- Discharge Planning Updated by [id number]: Cassnadra Ling on 05/16/20 8:[address] CM contacted Tia @ [facility]. Faxed new referral. CM will continue to follow and assist as needed with discharge planning / needs. DCP- Discharge Planning Updated by [email or web address]: Ida Diaz on 05/10/20 12:[address] Patient Name: CHON LUI Admission Status: ER Accout number: [id number] Admission Date: 05-04-2020 : 1950 Admission Diagnosis:SEPSIS, UNSPECIFIED ORGANISM Attending: LUIS MIGUEL CORDERO Current LOS: 6 Anticipated DC Date: Planned Disposition: Primary Insurance: MEDICARE A & B Discharge Planning Comments: UPDATED CLINICALS FAXED TO TIA AT [facility], NO BED AVAILABLE AT THIS TIME. STATES POSSIBLE BED OPEN WEDNESDAY. CM TO FOLLOW AND ASSIST NEEDED. Hair Rooting Machine Operator: Ida Diaz DCP- Discharge Planning Updated by [id number]: Ida Diaz on 05/09/20 11:[address] Patient Name: CHON LUI Admission Status: ER Accout number: [id number] Admission Date: 05-04-2020 : 1950 Admission Diagnosis:SEPSIS, UNSPECIFIED ORGANISM Attending: LUIS MIGUEL CORDERO Current LOS: 5 Anticipated DC Date: Planned Disposition: Primary Insurance: MEDICARE A & B Discharge Planning Comments: I AM TALKING WITH TIA AT [facility] TO SEE IF THIS PATIENT WOULD BE APROPRIATE FOR THEM FOR NEXT LEVEL OF CARE. WAITING CALL BACK. CM TO FOLLOW AND ASSIST. 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 THE PLAN IS TO RETURN TO [facility] AT DISCHARGE. SHE IS CURRENTLY ON 2L OF 02 AT [facility]. SHE IS ON 11 LITERS O2 HERE. I CALLED AND SPOKE WITH TYREE AND SHE STATES THEY WILL NEED A COVID TEST AND 02 AT 5 OR BELOW BEFORE THEY CAN TAKE HER BACK. CM TO FOLLOW AND ASSIST NEEDED. Hair Rooting Machine Operator: Ida Diaz DCPIA - Discharge Planning Initial Assessment Updated by [email or web address]: Ida Diaz on 05/10/20 9:48 am * PCP ROSALBA * Preadmission Environment Line Department Supervisor Assisted * Facility Name [facility] * Other Equipment 02 * Additional services required to return to the preadmission environment? No * Can the patient safely return to the preadmission environment? Yes * Has this patient been hospitalized within the prior 30 days at any hospital? Yes Last DP export: 05/24/20 9:57 a Patient Name: CHON LUI Page 88210 at 1019 All edits/amendments must be made on the electronic document DICTATION DATE: 05/28/20 1018 FILER FINISH: NAHUN 05/28/20 1018 RPT#: [id number] DC DATE: STATUS: ADM IN [facility] [address] [place] [address] END OF REPORT
--- NOTE | 2020-05-29 09:08 | MORECARE ---
CASE MANAGEMENT DISCHARGE SUMMARY PATIENT: CHON LUI UNIT: [id number] ADM DATE: 05/04/20 AGE: 69 : 50 SEX: F ROOM/BED: D.2224 AUTHOR: NATALIA HEALY PHYSICIAN: REFERRING PHYSICIAN: LUIS MIGUEL CORDERO MD DATE OF SERVICE: 05/29/20 Discharge Plan Patient Name: CHON LUI Facility: [facility]:[place] : 1950 Planned Disposition: Anticipated Discharge Date: Discharge Date: 05/28/2020 Expected LOS: Initial Reviewer: [id number] Initial Review Date: 05/07/2020 Generated: 05/29/20 10:07 am Comments DCP- Discharge Planning Updated by [id number]: Ida Diaz on 05/28/20 9:[address] Patient Name: CHON LUI Admission Status: ER Accout number: [id number] Admission Date: 05-04-2020 : 1950 Admission Diagnosis:SEPSIS, UNSPECIFIED ORGANISM Attending: LUIS MIGUEL CORDERO Current LOS: 24 Anticipated DC Date: Planned Disposition: Primary Insurance: MEDICARE A & B Discharge Planning Comments: CALLED [facility] AND FAXED CLINICALS, PATIENT READY FOR DC BACK TO THEIR FACILITY. WAITING CALL BACK FROM [facility]. Ssn/Ssbn Assistant Navigator: Ida Diaz DCP- Discharge Planning Updated by [id number]: Ida Diaz on 05/24/20 9:[address] Patient Name: CHON LUI Admission Status: ER Accout number: [id number] Admission Date: 05-04-2020 : 1950 Admission Diagnosis:SEPSIS, UNSPECIFIED ORGANISM Attending: LUIS MIGUEL CORDERO Current LOS: 20 Anticipated DC Date: Planned Disposition: Primary Insurance: MEDICARE A & B Discharge Planning Comments: CM SPOKE WITH PATIENT ABOUT LTAC FACILITIES OUTSIDE [place]. SHE IS AGREEABLE TO LTAC IN [facility]. I WILL FAX REFERRAL TO [facility] TODAY. Ssn/Ssbn Assistant Navigator: Ida Diaz DCP- Discharge Planning Updated by [email or web address]: Nasreen Nation on 05/23/20 9:[address] CM received call back from [facility] stating that their facility is closing for 10 days to do "a deep clean" d/t increased COVID activity at their facility. States she will be back in her office 05/31/20 to start accepting referrals for an anticipated re-open date of 06/03/20. CM will contact family about selecting a different [facility]. DCP- Discharge Planning Updated by [id number]: Nasreen Nation on 05/20/20 3:[address] CM called and left message for Tia with [facility] requesting update on status of referral. DCP- Discharge Planning Updated by [id number]: Cassandra Ling on 05/16/20 8:[address] CM contacted Tia @ [facility]. Faxed new referral. CM will continue to follow and assist as needed with discharge planning / needs. DCP- Discharge Planning Updated by [id number]: Ida Diaz on 05/10/20 12:[address] Patient Name: CHON LUI Admission Status: ER Accout number: [id number] Admission Date: 05-04-2020 : 1950 Admission Diagnosis:SEPSIS, UNSPECIFIED ORGANISM Attending: LUIS MIGUEL CORDERO Current LOS: 6 Anticipated DC Date: Planned Disposition: Primary Insurance: MEDICARE A & B Discharge Planning Comments: UPDATED CLINICALS FAXED TO TIA AT [facility], NO BED AVAILABLE AT THIS TIME. STATES POSSIBLE BED OPEN WEDNESDAY. CM TO FOLLOW AND ASSIST NEEDED. Ssn/Ssbn Assistant Navigator: Ida Diaz DCP- Discharge Planning Updated by [id number]: Ida Diaz on 05/09/20 11:[address] Patient Name: CHON LUI Admission Status: ER Accout number: [id number] Admission Date: 05-04-2020 : 1950 Admission Diagnosis:SEPSIS, UNSPECIFIED ORGANISM Attending: LUIS MIGUEL CORDERO Current LOS: 5 Anticipated DC Date: Planned Disposition: Primary Insurance: MEDICARE A & B Discharge Planning Comments: I AM TALKING WITH TIA AT [facility] TO SEE IF THIS PATIENT WOULD BE APROPRIATE FOR THEM FOR NEXT LEVEL OF CARE. WAITING CALL BACK. CM TO FOLLOW AND ASSIST. 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 THE PLAN IS TO RETURN TO [facility] AT DISCHARGE. SHE IS CURRENTLY ON 2L OF 02 AT [facility]. SHE IS ON 11 LITERS O2 HERE. I CALLED AND SPOKE WITH TYREE AND SHE STATES THEY WILL NEED A COVID TEST AND 02 AT 5 OR BELOW BEFORE THEY CAN TAKE HER BACK. CM TO FOLLOW AND ASSIST NEEDED. 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 No * Can the patient safely return to the preadmission environment? Yes * Has this patient been hospitalized within the prior 30 days at any hospital? Yes Last DP export: 05/28/20 9:19 Patient Name: CHON LUI Page 91227 at 0908 All edits/amendments must be made on the electronic document DICTATION DATE: 05/29/20906 CLIENT SERVICE MANAGER: NAHUN 05/29/20906 RPT#: [id number] DC DATE:05/28/20 STATUS: DIS IN [facility] [address] [place] [address] END OF REPORT
== END 2020-05-28 15:17 | DRG 870 ==
LOC: D.ER 12:23 → D.MS 14:58 → D.EDHOLD 14:58 → D.ICU 14:58 → D.MS 05-06 21:40 → D.ICU 05-10 16:29 → D.MS 05-22 16:28
PROVIDERS: Family Medicine; Internal Medicine Pulmonary Disease; ADMIT Family Medicine; ATTEND Family Medicine
PROC: 5A1955Z Respiratory Ventilation, Greater than 96 Consecutive Hours (ICD-10-PCS; 2020-05-10)
PROC: 06HY33Z Insertion of Infusion Device into Lower Vein, Percutaneous Approach (ICD-10-PCS; 2020-05-11)
PROC: 0W9B3ZZ Drainage of Left Pleural Cavity, Percutaneous Approach (ICD-10-PCS; 2020-05-11)
PROC: 0D20XUZ Change Feeding Device in Upper Intestinal Tract, External Approach (ICD-10-PCS; principal; 2020-05-12)
DX: A41.9 Sepsis, unspecified organism (principal); R65.21 Severe sepsis with septic shock; I50.33 Acute on chronic diastolic (congestive) heart failure; J96.21 Acute and chronic respiratory failure with hypoxia; J15.212 Pneumonia due to Methicillin resistant Staphylococcus aureus; J90 Pleural effusion, not elsewhere classified; E87.1 Hypo-osmolality and hyponatremia; N39.0 Urinary tract infection, site not specified; J44.1 Chronic obstructive pulmonary disease with (acute) exacerbation; E87.6 Hypokalemia; R00.0 Tachycardia, unspecified; I11.0 Hypertensive heart disease with heart failure; Z93.0 Tracheostomy status; Z85.89 Personal history of malignant neoplasm of other organs and systems; D64.9 Anemia, unspecified; F32.9 Major depressive disorder, single episode, unspecified

== ENCOUNTER 2020-10-16 20:15 | Emergency (ER) | payer MEDICARE ==
[~2020-10-16] VITALS: Ht 160 cm; Wt 55.0 kg
[~2020-10-16 20:15] MED LIST changes: +ACIDOPHILUS-PE1 EACH PO; +PULMICORT0.5 MG/21 INH
[2020-10-16 20:16] VITALS: Ht 160 cm; Wt 55.0 kg
[2020-10-16] MEDS ORDERED: LOMOTIL 2.5-0.1 EAC1 PO (20:36)
[2020-10-16 20:56] LABS: BASOPHILS 0.5 % (0-2); EOSINOPHILS 1.9 % (0-7); HEMATOCRIT 31.5 % (36.0-48.0); HEMOGLOBIN 9.9 g/dL (12-16); IMMATURE GRANULOCYTES 0.6 % (0-5); LYMPHOCYTE ABS# 1.58 10x3/uL (1.18-3.74); MCHC 31.4 g/dL (31.0-37.0); MEAN PLATELET VOLUME 8.9 fL (7.4-10.4); MONOCYTES 10.6 % (2-11); NEUTROPHIL ABS# 5.59 10x3/uL (1.56-6.13); NEUTROPHILS 67.4 % (40-80); PLATELET COUNT 328 10x3/uL (130-400); RBC 3.54 10x6/uL (4.00-5.40); RDW 16.2 % (11.5-14.5); WBC 8.3 10x3/uL (4.8-10.8)
[2020-10-16 21:08] LABS: CALC OSMOLALITY 292 mosm/kg (275-300); CALCIUM 8.9 mg/dL (8.5-10.1); CARBON DIOXIDE 34.1 mmol/L (21.0-32.0); CHLORIDE - SERUM 103 mmol/L (98-107); CREATININE - SERUM 0.9 mg/dL (0.6-1.3); GLUCOSE 100 mg/dL (74-106); POTASSIUM - SERUM 4.1 mmol/L (3.5-5.1); SODIUM 142 mmol/L (136-145); UREA NITROGEN 41 mg/dL (7-18); eGFR NON AFRICAN AMERICAN 66 mL/min (90-120)
[2020-10-16 21:14] LABS: ALBUMIN 2.6 g/dL (3.4-5.0); ALKALINE PHOSPHATASE 109 U/L (30-120); ALT (SGPT) 18 U/L (10-68); BILIRUBIN - TOTAL 0.26 mg/dL (0.2-1.3); LIPASE 50 U/L (73-393); MAGNESIUM - SERUM 2.5 mg/dL (1.8-2.4); PROTEIN - SERUM 7.3 g/dL (6.4-8.2)
[2020-10-16 21:15] LABS: TROPONIN-I < 0.017 ng/mL (0.000-0.060)
[2020-10-17 03:05] VITALS: BP 125/50
== END 2020-10-17 01:01 ==
LOC: D.ER 20:15
PROVIDERS: Family Medicine
DX: K94.23 Gastrostomy malfunction (principal); R19.7 Diarrhea, unspecified; I11.0 Hypertensive heart disease with heart failure; I50.9 Heart failure, unspecified; J44.9 Chronic obstructive pulmonary disease, unspecified; K21.9 Gastro-esophageal reflux disease without esophagitis

== ENCOUNTER 2020-10-22 17:22 | Emergency (ER) | payer MEDICARE ==
[~2020-10-22] VITALS: Ht 160 cm; Wt 53.2 kg
[~2020-10-22 17:22] MED LIST changes: +LOMOTIL 2.5-0.1 EAC1 PO
[2020-10-22 17:30] VITALS: Ht 160 cm; Wt 53.2 kg
[2020-10-22 19:31] VITALS: BP 123/60
== END 2020-10-22 19:33 ==
LOC: D.ER 17:22
DX: K94.23 Gastrostomy malfunction (principal); I11.0 Hypertensive heart disease with heart failure; I50.9 Heart failure, unspecified; J44.9 Chronic obstructive pulmonary disease, unspecified; K21.9 Gastro-esophageal reflux disease without esophagitis

== ENCOUNTER 2020-10-25 22:28 | Emergency (ER) | payer MEDICARE ==
[~2020-10-25] VITALS: Ht 160 cm; Wt 53.2 kg
[2020-10-25 22:30] VITALS: BP 115/41; Ht 160 cm; Wt 53.2 kg
== END 2020-10-26 02:37 ==
LOC: D.ER 22:28
DX: K94.23 Gastrostomy malfunction (principal); I11.0 Hypertensive heart disease with heart failure; I50.9 Heart failure, unspecified; J44.9 Chronic obstructive pulmonary disease, unspecified; K21.9 Gastro-esophageal reflux disease without esophagitis

== ENCOUNTER 2020-11-02 18:08 | Emergency (ER) | payer MEDICARE ==
[~2020-11-02] VITALS: Ht 160 cm; Wt 77.3 kg
[2020-11-02 18:12] VITALS: BP 98/55; Ht 160 cm; Wt 77.3 kg
[2020-11-02 19:02] LABS: BASOPHILS 0.3 % (0-2); EOSINOPHILS 6.7 % (0-7); HEMATOCRIT 32.3 % (36.0-48.0); HEMOGLOBIN 9.8 g/dL (12-16); IMMATURE GRANULOCYTES 0.2 % (0-5); LYMPHOCYTE ABS# 2.24 10x3/uL (1.18-3.74); LYMPHOCYTES 25.5 % (15-50); MCH 27.6 pg (26.0-34.0); MCHC 30.3 g/dL (31.0-37.0); MEAN PLATELET VOLUME 8.8 fL (7.4-10.4); MONOCYTES 8.3 % (2-11); NEUTROPHIL ABS# 5.17 10x3/uL (1.56-6.13); PLATELET COUNT 337 10x3/uL (130-400); RBC 3.55 10x6/uL (4.00-5.40); RDW 16.1 % (11.5-14.5); WBC 8.8 10x3/uL (4.8-10.8)
[2020-11-02 19:11] LABS: CALC OSMOLALITY 279 mosm/kg (275-300); CARBON DIOXIDE 33.8 mmol/L (21.0-32.0); CHLORIDE - SERUM 100 mmol/L (98-107); CREATININE - SERUM 0.6 mg/dL (0.6-1.3); GLUCOSE 91 mg/dL (74-106); POTASSIUM - SERUM 4.7 mmol/L (3.5-5.1); SODIUM 138 mmol/L (136-145); UREA NITROGEN 23 mg/dL (7-18); eGFR NON AFRICAN AMERICAN > 90 mL/min (90-120)
[2020-11-02 19:20] LABS: ALBUMIN 2.7 g/dL (3.4-5.0); ALKALINE PHOSPHATASE 128 U/L (30-120); ALT (SGPT) 16 U/L (10-68); AMYLASE - SERUM 29 U/L (25-115); BILIRUBIN - TOTAL 0.17 mg/dL (0.2-1.3); LIPASE 66 U/L (73-393); PROTEIN - SERUM 7.2 g/dL (6.4-8.2)
[2020-11-02 19:33] LABS: TROPONIN-I < 0.017 ng/mL (0.000-0.060)
[2020-11-02 21:23] LABS: BILIRUBIN NEGATIVE (NEGATIVE); KETONE NEGATIVE (NEGATIVE); NITRITE NEGATIVE (NEGATIVE); UROBILINOGEN NORMAL mg/dL (< 2)
[2020-11-02 21:28] LABS: WHITE CELLS - URINE 0-5 HPF (0-4)
[2020-11-02 21:29] LABS: AMORPHOUS SEDIMENT MODERATE LPF (NONE SEEN); BACTERIA FEW HPF (NONE SEEN); SQUAMOUS EPITHELIAL 0-5 HPF (0-4)
== END 2020-11-02 22:34 ==
LOC: D.ER 18:08
PROVIDERS: Family Medicine
DX: Z43.1 Encounter for attention to gastrostomy (principal); R10.9 Unspecified abdominal pain; I50.9 Heart failure, unspecified; J44.9 Chronic obstructive pulmonary disease, unspecified; K21.9 Gastro-esophageal reflux disease without esophagitis

== ENCOUNTER 2020-11-09 15:53 | Inpatient (IN) | payer MEDICARE ==
[~2020-11-09] VITALS: Ht 160 cm; Wt 52.2 kg
[2020-11-09 16:25] LABS: BASOPHILS 0.3 % (0-2); EOSINOPHILS 2.3 % (0-7); HEMATOCRIT 33.6 % (36.0-48.0); HEMOGLOBIN 10.5 g/dL (12-16); IMMATURE GRANULOCYTES 0.3 % (0-5); LYMPHOCYTE ABS# 1.62 10x3/uL (1.18-3.74); LYMPHOCYTES 12.3 % (15-50); MCH 27.6 pg (26.0-34.0); MCHC 31.3 g/dL (31.0-37.0); MCV 88.2 fL (80.0-100.0); MEAN PLATELET VOLUME 8.5 fL (7.4-10.4); MONOCYTES 8.1 % (2-11); NEUTROPHIL ABS# 10.06 10x3/uL (1.56-6.13); NEUTROPHILS 76.7 % (40-80); PLATELET COUNT 438 10x3/uL (130-400); RBC 3.81 10x6/uL (4.00-5.40); RDW 15.8 % (11.5-14.5); WBC 13.1 10x3/uL (4.8-10.8)
[2020-11-09 16:33] LABS: APTT 39.9 SECONDS (22.8-39.4); INR 1.25 (0.85-1.17); PROTIME 14.5 SECONDS (11.6-15.0)
[2020-11-09 16:40] LABS: CALC OSMOLALITY 284 mosm/kg (275-300); CALCIUM 9.4 mg/dL (8.5-10.1); CHLORIDE - SERUM 100 mmol/L (98-107); CREATININE - SERUM 0.7 mg/dL (0.6-1.3); GLUCOSE 130 mg/dL (74-106); POTASSIUM - SERUM 4.5 mmol/L (3.5-5.1); SODIUM 139 mmol/L (136-145); UREA NITROGEN 27 mg/dL (7-18); eGFR NON AFRICAN AMERICAN 88 mL/min (90-120)
[2020-11-09 16:57] LABS: ALBUMIN 2.8 g/dL (3.4-5.0); ALKALINE PHOSPHATASE 139 U/L (30-120); ALT (SGPT) 24 U/L (10-68); BILIRUBIN - TOTAL 0.19 mg/dL (0.2-1.3); CREATINE KINASE 10 UL (21-215); PROTEIN - SERUM 7.5 g/dL (6.4-8.2)
[2020-11-09 16:59] LABS: TROPONIN-I < 0.017 ng/mL (0.000-0.060)
[2020-11-09 17:38] LABS: SARS-CoV-2 ANTIGEN NEGATIVE- SARS-COV-2 (NEGATIVE)
[2020-11-09 21:57] VITALS: BP 135/86
[2020-11-10 01:17] LABS: BILIRUBIN NEGATIVE (NEGATIVE); KETONE NEGATIVE (NEGATIVE); NITRITE NEGATIVE (NEGATIVE); UROBILINOGEN NORMAL mg/dL (< 2)
[2020-11-10 02:53] VITALS: BP 135/86; BMI 20.4
[2020-11-10 04:22] VITALS: BP 141/71
[2020-11-10 05:10] LABS: BASOPHILS 0.2 % (0-2); EOSINOPHILS 0.1 % (0-7); HEMATOCRIT 29.9 % (36.0-48.0); HEMOGLOBIN 9.2 g/dL (12-16); IMMATURE GRANULOCYTES 0.2 % (0-5); LYMPHOCYTE ABS# 1.72 10x3/uL (1.18-3.74); LYMPHOCYTES 12.9 % (15-50); MCH 27.2 pg (26.0-34.0); MCHC 30.8 g/dL (31.0-37.0); MCV 88.5 fL (80.0-100.0); MEAN PLATELET VOLUME 8.7 fL (7.4-10.4); NEUTROPHIL ABS# 10.62 10x3/uL (1.56-6.13); NEUTROPHILS 79.6 % (40-80); PLATELET COUNT 444 10x3/uL (130-400); RBC 3.38 10x6/uL (4.00-5.40); RDW 15.8 % (11.5-14.5); WBC 13.4 10x3/uL (4.8-10.8)
[2020-11-10 05:40] LABS: ALBUMIN 2.4 g/dL (3.4-5.0); ALKALINE PHOSPHATASE 102 U/L (30-120); ALT (SGPT) 21 U/L (10-68); BILIRUBIN - TOTAL 0.43 mg/dL (0.2-1.3); CALCIUM 8.7 mg/dL (8.5-10.1); CARBON DIOXIDE 28.6 mmol/L (21.0-32.0); CHLORIDE - SERUM 103 mmol/L (98-107); CREATININE - SERUM 0.6 mg/dL (0.6-1.3); GLUCOSE 121 mg/dL (74-106); PROTEIN - SERUM 7.4 g/dL (6.4-8.2); SODIUM 138 mmol/L (136-145); VANCOMYCIN - RANDOM 26.7 ug/mL (10.0-20.0); eGFR NON AFRICAN AMERICAN > 90 mL/min (90-120)
[2020-11-10 05:42] LABS: CALC OSMOLALITY 279 mosm/kg (275-300); POTASSIUM - SERUM 3.7 mmol/L (3.5-5.1); UREA NITROGEN 20 mg/dL (7-18)
--- NOTE | 2020-11-10 07:20 | NUR ---
RECIEVE REPORT. RESTING IN BED WITH EYES CLOSED. FAIRCHILD DRAINING BY GRAVITY. VENTIMASK ON. CONTINUE PLAN OF CARE AND SAFETY PRECAUTIONS.
[2020-11-10 09:03] VITALS: BP 98/44
[2020-11-10 16:01] VITALS: BP 94/35
--- NOTE | 2020-11-10 16:54 | NUR ---
ALERT AND ORIENTED X4. SITTING UP IN BED. REPORTS SOB. NOTIFY RESPIRATORY. RESPIRATORY SUCTIONS TRACH. HR-140 WITH COUPLET PACs. REPORTS PAIN 03/25. ADMINISTER MORPHINE ORDERED. PAGE TO INFORM HR CHANGE.
[2020-11-10 17:43] LABS: CREATINE KINASE 13 UL (21-215)
[2020-11-10 18:14] LABS: TROPONIN-I < 0.017 ng/mL (0.000-0.060)
[2020-11-10 19:00] VITALS: BP 122/68
--- NOTE | 2020-11-10 19:00 | NUR ---
REPORT RECEIVED, PT CARE ASSUMED. PT SITTING UP IN BED, AAOX4, REQUESTING RT FOR TRACH CARE, SPOKE WITH RT. DENIES ANY OTHER NEEDS AT THIS TIME, BED LOWEST, SRX2, CL AND CELLPHONE WITHIN REACH. CPOC.
[2020-11-11] VITALS (7 sets, daily range): BP systolic 91–112; BP diastolic 43–74; Ht 160 cm; Wt 52.2 kg
--- NOTE | 2020-11-11 07:20 | NUR ---
RECIEVE REPORT. ALERT AND ORIENTED X4. SITTING UP IN BED. SINUS TACH WITH PACs ON TELEMETRY. EXPRESSES BEING WORRIED ABOUT FAMILY. DENIES ANY OTHER NEEDS. CONTINUE PLAN OF CARE AND SAFETY PRECAUTIONS.
--- NOTE | 2020-11-11 18:31 | NUR ---
ALERT AND ORIENTED X4. SITTING UP IN BED. REQUESTING RESPIRATORY. CALL RESPIRATORY. CONVERT TO UNCONTROLLED AFIB 170 WITH COUPLETS. NOTIFY . CARDIZEM DRIP ORDERED AT 5ml/HR. CONTINUE PLAN OF CARE AND SAFETY PRECAUTIONS.
--- NOTE | 2020-11-11 20:02 | NUR ---
REPORT RECEIVED ON PT. PT IS AAOX4, RESTING IN BED C/O BACK PAIN. PT IS IN UNCONTROLLED A FIB AT A RATE OF 128 BPM WITH PVC'S. PT HAS ONE IV AT TIME OF REPORT. ORDER OBTAINED TO ACCESS PT LEFT CHEST PORT. PORT WAS ACCESSED USING STERILE TECHNIQUE WITH ONE ATTEMPT. PT STARTED ON CARDIZEM AT A RATE OF 5ML/HR. BP 91/54 PRIOR TO INFUSION. RECHECK AFTER 10 MIN OF INFUSION IS 105/49 HEART RATE 124. PT GIVEN NORCO THROUGH PEG TUBE FOR 05/25 BACK PAIN ALONG WITH SCHEDULE MEDICATIONS. PT ASKED TO BRING A FAN FROM HOME. RN EXPLAINED OUR NO FAN POLICY DUE TO COVID. PT VERBALIZED UNDERSTANDING. NO FURTHER NEEDS AT THIS TIME. WILL CONTINUE TO MONITOR
[2020-11-12 00:11] VITALS: BP 102/72
[2020-11-12 05:08] VITALS: BP 106/49
[2020-11-12 08:00] VITALS: BP 113/64
--- NOTE | 2020-11-12 09:10 | NUR ---
NURSE IN ROOM THIS AM TO DO MEDS IN PATIENT'S PEG. PLAN OF CARE REVIEWED AND ASSESSMENT HAS BEEN COMPLETED.PATIENT GIVEN ORAL CARE. NURSE CHANGES PATIENT'S PEG DRESSING AFTER NOTICING THE COLORING WAS DARK GREEN AND YELLOW. PATIENT STATES SHE DOESNT KNOW WHEN THE LAST HER FACILITY HAD CHANGED THIS DRESSING. PATIENT TOLERATED MEDS WELL. CALL LIGHT IN REACH
[2020-11-12 11:00] VITALS: BP 120/67
--- NOTE | 2020-11-12 11:02 | NUR ---
Nutrition Follow-up: Pt in droplet isolation; covid pending. Nursing reports pt tolerating TF @ goal rate. Diet: Jevity 1.5 @ 40 mL/hr + H2O flushes 30 mL q hr No new wt; last wt: 115# (11/11) Labs noted: Glu 121, Alb 2.4 Meds noted: Florajen, Protonix, sodium chloride, Mylanta, Lasix -TF as tolerated. -RD will follow up within 3 days.
--- NOTE | 2020-11-12 11:29 | NUR ---
PAGE INTO DR SANDS R/T GURINDER MARINO AND WANTING TO REMOVE IT. NEW ORDERS.
--- NOTE | 2020-11-12 13:58 | CN ---
PATIENT NAME:CHON LUI MEDICAL RECORD: [id number] : [birth year] LOCATION:D. D.2100 ADMIT DATE: 11/09/20 ACCOUNT: [id number] CONSULTING PHYSICIAN: BRICE CASTELLANOS MD REFERRING PHYSICIAN: CHERELLE NAVARRETE MD DATE OF CONSULTATION: 11/11/2020 HISTORY OF PRESENT ILLNESS: A 70-year-old female with history of lung carcinoma, chronic respiratory failure status post trach, anemia, pneumonia in the past, most recently admitted with sepsis in April 2020 with shortness of breath, over a 2 to 3 day history of cough, generalized malaise, fatigue, does have a small right pleural effusion, questionable infiltrate, noted to have tachycardia on telemetry. We were asked to see her concerning her cardiovascular status. PAST MEDICAL HISTORY: Includes; 1. History of tracheostomy. 2. PEG. 3. Hypertension. 4. Hyponatremia. 5. Obstructive pulmonary disease. 6. Hypothyroidism, on replacement. ALLERGIES: None known. HOME MEDICATIONS: Include Synthroid 175 mcg every day, Protonix 40 mg every day, sodium chloride 1 gram b.i.d., Lasix 10 mg every day, Restoril 7.5 at bedtime, [place] 5/325 every 4 hours p.r.n., aspirin 81 every day, Brovana updraft b.i.d., DuoNeb q.i.d. SOCIAL HISTORY: Currently resides in a skilled nursing. Nonsmoker, nondrinker. PHYSICAL EXAMINATION: GENERAL: Elderly female in no acute distress, appears stated age. VITAL SIGNS: Blood pressure 112/49, pulse 111, frequent ectopics. NECK: No JVD or bruit. HEART: Regular, II/ systolic ejection murmur. LUNGS: Slightly prolonged expiratory phase. Few expiratory wheezes. ABDOMEN: Soft and nontender. EXTREMITIES: Pulses 2+. No edema. DIAGNOSTIC DATA: EKG shows probable multifocal atrial tachycardia. IMPRESSION AND PLAN: Multifocal atrial tachycardia, suspect secondary to underlying intrinsic pulmonary issues. No indication for anticoagulation at this point, she does have organized atrial activity. We will add low-dose digoxin to help her provide some atrial stabilization. Further recommendations based on clinical course. Thank you very much for the consultation. TRANSINT:[id number] Voice Confirmation ID: [id number] DOCUMENT ID: [id number] CONSULT REPORT [id number] CHON LUI GREGORY A MD at 1358 CC: [id number] DICTATION DATE: 11/11/20 1111 TELEPHOTO INSTALLER: 11/11/20 1432 ADM IN [place] [id number] [place] [id number]
--- NOTE | 2020-11-12 13:58 | EC ---
PATIENT:CHON LUI DATE OF SERVICE: 11/09/20 SEX: F MEDICAL RECORD: [id number] DATE OF : [birth year] LOCATION:D.M2 D.210 AGE OF PATIENT: 70 ADMISSION DATE: 11/09/20 REFERRING PHYSICIAN: INTERPRETING PHYSICIAN: BRICE CASTELLANOS MD ECHOCARDIOGRAM REPORT ECHO CHARGES 4 ECHO COMPLETE Date: 11/11/20 CLINICAL DIAGNOSIS: ARRY ECHOCARDIOGRAPHIC MEASUREMENTS (adult normal given) AC root (d.<3.7cm) 3.2 cm LV Septum d (<1.2 cm> 0.8 cm Valve Excursion 1.2 cm LV Septum (systole) 0.9 cm Left Atria (s.<4.0cm> 3.3 cm LVPW d(<1.2cm) 0.9 cm RV (d.<2.3cm) 2.1 cm LVPW (sytole) 1.4 cm LV diastole(<5.6CM) 4.7 cm MV E-F(>70mm/sec) cm LV systole 3.5 cm LVOT Diameter 1.6 cm MV exc.(>10mm) 1.2 cm Est.ejection fraction (50-75%) % DOPPLER: LVIT cm/sec A 142 cm/sec E 85 cm/sec LA cm/sec RVSP 18 mmHg LVOT 116 cm/sec AOP1/2T m/s Asc. Ao 130 cm/sec RVOT 51 cm/sec RA cm/sec PA 49 cm/sec AV Gradient Peak 6.8 mmHg AV Mean 2.7 mmHg AV Area 1.4 cm MV Gradient Peak 9.4 mmHg MV Mean 2.9 mmHg MV Area cm COMMENTS: Ice Cream Freezer Helper: Junaid DICKINSON Shipping And Receiving: 3 Dr. Charles TAPE# Pericardial Effusion N DATE OF SERVICE: Adequate 2D, color flow imaging, spectral Doppler, and M-Mode. FINDINGS: No LVH. LV internal dimensions are normal. Wall motion is normal. EF is greater than or equal to 55%. Aortic valve is tricuspid. No evidence of stenosis by Doppler interrogation. Left atrium is normal. Mitral valve shows no prolapse. Trivial MR. Right side is grossly normal. Trivial TR. TRANSINT:[id number] Voice Confirmation ID: [id number] DOCUMENT ID: [id number] ECHOCARDIOGRAM REPORT [id number] CHON LUI BRICE CASTELLANOS MD at 1358 CC: [id number] DICTATION DATE: 11/12/20827 C D REACTOR OPERATOR: 11/12/20 1314 ADM IN [place] [id number] [place] [id number]
--- NOTE | 2020-11-12 14:00 | NUR ---
NURSE TALKS WTMIREILLE MOELLER AT THIS TIME ABOUT PATIENT, PATIENT IS STILL IN UNCONTROLLED AFIB. PATIENT JUST GOT UP TO 180 ON THE TELE MONITOR. SUNNI ORDERS 5MG IV LOPRESSOR AND TO CHANGE ORDER FOR PATIENT CARDIZEM TO BE INCREASED TO 10MG. NURSE VERBS UNDERSTANDING. CALL LIGHT IN REACH
--- NOTE | 2020-11-12 17:39 | NUR ---
NEW IV STARTED TO PATIENT'S RIGHT WRIST. 22 G. PATIENT SUCTIONED, RESPIRATORY DECIDED PATIENT OXYGENATED BETTER WITHOUT HER SPEAKED BUTTON, SO SHE REMOVED IT AND LEFT IT IN THE ROOM. PATIENT DENIES NEEDS.CALL LIGHT IN REACH
[2020-11-12 19:00] VITALS: BP 110/56
--- NOTE | 2020-11-12 21:38 | NUR ---
PT RESTING IN BED COMFORTABLY. PT AAOX4. PT GIVEN PASSIMERE VALVE TO SPEAK ON THE PHONE WITH DAUGHTER THEN IT WAS REMOVED AND PUT IN A CUP NEAR WINDOW. PT FAIRCHILD REMOVED AND 1000 ML DOCUMENTED UOP. PENDING POST FAIRCHILD REMOVAL VOID. PT GIVEN PAIN MEDICATION ALONG WITH SCHEDULED MEDICATION ORDERED. PT FEEDING BAG AND FLUSH BAG REFILLED. NEW BAG OF CARDIZEM HUNG AT A RATE OF 10ML/HR. WILL MONITOR VITALS.
[2020-11-13] VITALS: BP 110/49
[2020-11-13 04:00] VITALS: BP 112/49
--- NOTE | 2020-11-13 07:15 | NUR ---
RECEIVE SHIFT REPORT. RESTING IN BED WITH EYES CLOSED. NO S/S OF DISTRESS PRESENT AT THIS TIME. CALL LIGHT IN REACH. STATED IN REPORT THAT PATIENT HAS BEEN NPO SINCE MIDNIGHT.
[2020-11-13 07:31] LABS: CREATININE - SERUM 0.6 mg/dL (0.6-1.3); VANCOMYCIN - RANDOM 24.6 ug/mL (10.0-20.0)
[2020-11-13 09:14] VITALS: BP 101/49
--- NOTE | 2020-11-13 15:14 | NUR ---
PATIENT PEG TUBE LEAKING. DRESSING CHANGED YESTERDAY AND IS NOW SATURATED WITH GREEN/ YELLOW DRAINAGE. PAGED DR. NAVARRETE. AWAITING CALL BACK.
[2020-11-13 16:47] VITALS: BP 117/87
[2020-11-13 17:59] VITALS: BP 98/454
--- NOTE | 2020-11-13 20:15 | NUR ---
REPORT RECEIVED, WILL CONT POC. PT A&O, UP IN BED WATCHING TV. NO S/S OF DISTRESS OBSERVED. RR EVEN & UNLABORED ON 40% TRACH COLLAR. BED LOCKED AND LOWERED, CL IN REACH. ASSESSMENT COMPLETED AT THIS TIME. WILL CONT TO MONITOR.
[2020-11-13 22:37] VITALS: BP 86/40
[2020-11-14 03:11] VITALS: BP 103/36
--- NOTE | 2020-11-14 06:23 | NUR ---
PT COMPLAINED OF ATBS CAUSING PAIN TO R HAND IV. IV WAS PATENT AND SITE WAS NOT RED OR IRRITATED. SITED A 22G TO THE R WRIST. ATBS CAN BE ALTERNATED BETWEEN THE IV SITES TO REDUCE IRRITATION TO THE VEINS.
[2020-11-14 06:27] LABS: CREATININE - SERUM 0.5 mg/dL (0.6-1.3); VANCOMYCIN - RANDOM 13.4 ug/mL (10.0-20.0)
[2020-11-14 07:30] VITALS: BP 114/41
[2020-11-14 09:58] LABS: BASOPHILS 0.4 % (0-2); EOSINOPHILS 1.2 % (0-7); HEMATOCRIT 31.1 % (36.0-48.0); HEMOGLOBIN 9.3 g/dL (12-16); IMMATURE GRANULOCYTES 0.1 % (0-5); LYMPHOCYTE ABS# 1.36 10x3/uL (1.18-3.74); LYMPHOCYTES 15.9 % (15-50); MCH 27.2 pg (26.0-34.0); MCHC 29.9 g/dL (31.0-37.0); MCV 90.9 fL (80.0-100.0); MEAN PLATELET VOLUME 8.5 fL (7.4-10.4); MONOCYTES 5.6 % (2-11); NEUTROPHIL ABS# 6.59 10x3/uL (1.56-6.13); NEUTROPHILS 76.8 % (40-80); PLATELET COUNT 367 10x3/uL (130-400); RBC 3.42 10x6/uL (4.00-5.40); RDW 15.3 % (11.5-14.5); WBC 8.6 10x3/uL (4.8-10.8)
[2020-11-14 10:17] LABS: ALBUMIN 2.3 g/dL (3.4-5.0); ALKALINE PHOSPHATASE 93 U/L (30-120); ALT (SGPT) 12 U/L (10-68); BILIRUBIN - TOTAL 0.34 mg/dL (0.2-1.3); CALC OSMOLALITY 279 mosm/kg (275-300); CARBON DIOXIDE 37.5 mmol/L (21.0-32.0); CHLORIDE - SERUM 98 mmol/L (98-107); CREATININE - SERUM 0.6 mg/dL (0.6-1.3); GLUCOSE 94 mg/dL (74-106); PROTEIN - SERUM 7.5 g/dL (6.4-8.2); SODIUM 140 mmol/L (136-145); UREA NITROGEN 14 mg/dL (7-18); eGFR NON AFRICAN AMERICAN > 90 mL/min (90-120)
[2020-11-14 10:22] LABS: POTASSIUM - SERUM 2.8 mmol/L (3.5-5.1)
[2020-11-14 11:30] VITALS: BP 106/61
--- NOTE | 2020-11-14 11:50 | NUR ---
Nutrition Follow-up: TF off. Noted pt has been having drainage around PEG. Plans for Tiffanie gastrostomy by Dr. Arellano tomorrow. Diet: Jevity 1.5 @ 40 mL/hr + H2O flushes 30 mL q hr (off) No new wt; last wt: 115# (11/11) Labs noted: K+ 2.8, Alb 2.3 Meds noted: Florajen, Protonix, Mylanta, Lasix, sodium chloride -Resume TF when medically feasible. -Need new wt. -RD follow-up: 11/18
[2020-11-14 15:00] VITALS: BP 116/64
--- NOTE | 2020-11-14 18:50 | NUR ---
RESTING INBED WATCHING TV. PLEASANT/COOOPERATIVE. NO NEEDS VOICED
[2020-11-14 20:43] VITALS: BP 117/42
[2020-11-15 00:01] VITALS: BP 93/63
[2020-11-15 03:58] LABS: BASOPHILS 0.5 % (0-2); EOSINOPHILS 0.9 % (0-7); HEMOGLOBIN 8.9 g/dL (12-16); IMMATURE GRANULOCYTES 0.2 % (0-5); LYMPHOCYTE ABS# 0.95 10x3/uL (1.18-3.74); LYMPHOCYTES 14.4 % (15-50); MCH 27.1 pg (26.0-34.0); MCHC 29.7 g/dL (31.0-37.0); MCV 91.5 fL (80.0-100.0); MEAN PLATELET VOLUME 8.8 fL (7.4-10.4); MONOCYTES 7.4 % (2-11); NEUTROPHIL ABS# 5.05 10x3/uL (1.56-6.13); NEUTROPHILS 76.6 % (40-80); PLATELET COUNT 396 10x3/uL (130-400); RBC 3.28 10x6/uL (4.00-5.40); RDW 15.3 % (11.5-14.5); WBC 6.6 10x3/uL (4.8-10.8)
[2020-11-15 04:19] LABS: ALBUMIN 2.1 g/dL (3.4-5.0); ALKALINE PHOSPHATASE 82 U/L (30-120); ALT (SGPT) 10 U/L (10-68); BILIRUBIN - TOTAL 0.32 mg/dL (0.2-1.3); CALC OSMOLALITY 272 mosm/kg (275-300); CALCIUM 9.1 mg/dL (8.5-10.1); CARBON DIOXIDE 32.5 mmol/L (21.0-32.0); CHLORIDE - SERUM 100 mmol/L (98-107); CREATININE - SERUM 0.5 mg/dL (0.6-1.3); GLUCOSE 75 mg/dL (74-106); SODIUM 137 mmol/L (136-145); UREA NITROGEN 12 mg/dL (7-18); eGFR NON AFRICAN AMERICAN > 90 mL/min (90-120)
[2020-11-15 04:22] LABS: POTASSIUM - SERUM 4.4 mmol/L (3.5-5.1)
[2020-11-15 04:45] VITALS: BP 94/47
[2020-11-15 08:00] VITALS: BP 107/79
--- NOTE | 2020-11-15 08:08 | NUR ---
SPOKE WITH PT DAUGHTER DEBORAH BLUE [phone] SHE IS UPSET THAT SHE WASN'T NOTIFIED OF HER MOM'S PROCEDURE SCHEDULED FOR TODAY. TO REPLACE HER PEG TUBE. DEBORAH REPORTS THAT SHE IS 13 HOURS AWAY & 2 YEARS AGO CHON CODED WHILE IN SURGERY. SO SHE IS UPSET THAT SHE CAN'T BE HERE FOR HER MOM. WILL GIVE INFO TO NURSE FLAT SURFACER PER FAMILY REQUEST.
--- NOTE | 2020-11-15 08:56 | NUR ---
PATIENT'S DAUGHTER TO CALL VERY UPSET THAT "NO ONE TOLD HER THAT HER MOTHER DIDNT HAVE COVID, THAT HER MOTHER CALLED HER YESTERDAY AND TOLD HER". SHE IS ALSO UPSET THAT NO ONE TOLD HER THAT HER MOTHER IS HAVING A PROCEDURE TODAY. PATIENT IS ALERT AND ORIENTED. DAUGHTER IS IN [place] AND HAS BEEN IN A WRECK AND IS 13 HOURS AWAY. I TOLD HER THAT HER PRIMARY NURSE WILL CALL HER PATIENT LEAVES THE FLOOR AND WHEN SHE IS BACK. EDWARD LAFLEUR APN FOR SURGERY IS AT THE DESK WHEN I ASK THE PRIMARY NURSE TO CALL AND STATES THAT SHE IS GOING TO CALL THE DAUGHTER. NUMBER GIVEN TO HER.
--- NOTE | 2020-11-15 12:37 | NUR ---
PATIETN STATING SHE IS HURTING. GAVE 1 MG OF MORPHINE FIRST PER ANESTHESIA. PT TOLERATED AND IS AWAKE STILL GRIMACING AND MOANING. SHE IS RATING PAIN AT 8.10. SAYS HER STOMACH IS HURTING REALLY BAD AND WOULD LIKE PAIN MEDICINE
--- NOTE | 2020-11-15 19:47 | NUR ---
1300-PT BACK TO ROOM FROM OR/PACU. AWAKE/ALERT. C/O PAIN 10/10 TO ABDOMEN. INCISION C/D/I WITH STERI STRIPS INTACT. PEG TUBE WITH SMALL AMOUNT OF BRIGHT RED BLOOD OOZING FROM SITE. 4X4 PLACED AROUND SITE, CONNECTED TO CATHETER BAG FOR DRAINAGE. CARDIZEM CONTINUES TO INFUSE AT 5ML/HR TO LEFT PAC. WILL CONTINUE TO MONITOR. DAUGHTER UPDATED ON PT STATUS.
--- NOTE | 2020-11-15 19:50 | NUR ---
NOTIFIED DAUGHTER DEBORAH OF PT CONDITION.
[2020-11-15 22:50] VITALS: BP 115/45
[2020-11-16 01:04] VITALS: BP 117/47
[2020-11-16 05:23] LABS: BASOPHILS 0.2 % (0-2); EOSINOPHILS 0.1 % (0-7); HEMATOCRIT 33.6 % (36.0-48.0); HEMOGLOBIN 9.9 g/dL (12-16); IMMATURE GRANULOCYTES 0.2 % (0-5); LYMPHOCYTE ABS# 0.78 10x3/uL (1.18-3.74); LYMPHOCYTES 6.3 % (15-50); MCH 27.2 pg (26.0-34.0); MCHC 29.5 g/dL (31.0-37.0); MCV 92.3 fL (80.0-100.0); MONOCYTES 7.9 % (2-11); NEUTROPHIL ABS# 10.63 10x3/uL (1.56-6.13); NEUTROPHILS 85.3 % (40-80); PLATELET COUNT 482 10x3/uL (130-400); RBC 3.64 10x6/uL (4.00-5.40); RDW 15.1 % (11.5-14.5); WBC 12.5 10x3/uL (4.8-10.8)
[2020-11-16 05:43] LABS: ALBUMIN 2.1 g/dL (3.4-5.0); ALKALINE PHOSPHATASE 78 U/L (30-120); ALT (SGPT) 12 U/L (10-68); BILIRUBIN - TOTAL 0.24 mg/dL (0.2-1.3); CALCIUM 9.4 mg/dL (8.5-10.1); CARBON DIOXIDE 29.4 mmol/L (21.0-32.0); CHLORIDE - SERUM 102 mmol/L (98-107); GLUCOSE 108 mg/dL (74-106); POTASSIUM - SERUM 4.2 mmol/L (3.5-5.1); PROTEIN - SERUM 7.1 g/dL (6.4-8.2); SODIUM 140 mmol/L (136-145); eGFR NON AFRICAN AMERICAN 75 mL/min (90-120)
[2020-11-16 05:44] LABS: CALC OSMOLALITY 281 mosm/kg (275-300); CREATININE - SERUM 0.8 mg/dL (0.6-1.3); UREA NITROGEN 18 mg/dL (7-18)
[2020-11-16 05:47] VITALS: BP 116/47
--- NOTE | 2020-11-16 07:00 | NUR ---
RECEIVED REPORT. ASSUMED CARE OF PATIENT. PATIENT REMAINS IN DROPLET ISOLATION. RESTING WELL WITH EYES OPEN, TRACH COLLAR PATENT. CARDIZEM DRIP INFUSING AT 5. CALL LIGHT WITHIN REACH. NO DISTRESS.
[2020-11-16 08:19] VITALS: BP 112/51
--- NOTE | 2020-11-16 09:14 | NUR ---
medicated for pain at this time. no distress.
[2020-11-16 12:05] VITALS: BP 139/59
--- NOTE | 2020-11-16 12:07 | NUR ---
PATIENT FOUND WITH O2 SAT IN 60S, AT BEDSIDE, O2 AT BEDSIDE AND O2 SAT BACK UP TO 88-89%.
--- NOTE | 2020-11-16 14:37 | NUR ---
SUCTION PATIENT AT THIS TIME WITH SCANT AMOUNT OF THIN YELLOW SECRETIONS. O2 SATURATION 91-92%, ON CONTINUOUS PULSE OX. NO DISTRESS. CALL LIGHT WITHIN REACH.
--- NOTE | 2020-11-16 16:02 | NUR ---
MEDICATED FOR PAIN AT THIS TIME. NO DISTRESS.
[2020-11-16 16:35] VITALS: BP 123/45
--- NOTE | 2020-11-16 19:55 | NUR ---
aaox4, no s/s of distress. reports pain to peg tube site; will medicate per emar. clir, bed in lowest position. denies any other needs or concerns at this time. will cont to monitor.
[2020-11-16 20:30] VITALS: BP 104/46
--- NOTE | 2020-11-16 22:00 | NUR ---
meds passed. peg flushed per protocol. no problems. brief and bed pad changed. purewick in place suctioning well. repositined in bed. hob at 30 degrees. clir,bed in lowest position. denies any other needs or concerns at this time. will cont to monitor.
[2020-11-17 00:30] VITALS: BP 105/64
--- NOTE | 2020-11-17 02:47 | NUR ---
SLEEPING. HOB AT 30 DEGREES. RR EVEN AND NONLABORED. CLIR, BED IN LOWEST POSITION. SR UPX3. WILL CONT TO MONITOR.
[2020-11-17 04:30] VITALS: BP 104/58
[2020-11-17 04:39] LABS: BASOPHILS 0.2 % (0-2); EOSINOPHILS 0.9 % (0-7); HEMATOCRIT 28.6 % (36.0-48.0); HEMOGLOBIN 8.5 g/dL (12-16); IMMATURE GRANULOCYTES 0.3 % (0-5); LYMPHOCYTE ABS# 1.31 10x3/uL (1.18-3.74); LYMPHOCYTES 12.6 % (15-50); MCH 27.2 pg (26.0-34.0); MCHC 29.7 g/dL (31.0-37.0); MCV 91.4 fL (80.0-100.0); MEAN PLATELET VOLUME 9.1 fL (7.4-10.4); MONOCYTES 7.3 % (2-11); NEUTROPHIL ABS# 8.21 10x3/uL (1.56-6.13); NEUTROPHILS 78.7 % (40-80); PLATELET COUNT 387 10x3/uL (130-400); RBC 3.13 10x6/uL (4.00-5.40); RDW 15.5 % (11.5-14.5); WBC 10.4 10x3/uL (4.8-10.8)
[2020-11-17 05:01] LABS: ALKALINE PHOSPHATASE 79 U/L (30-120); ALT (SGPT) 11 U/L (10-68); BILIRUBIN - TOTAL 0.11 mg/dL (0.2-1.3); CALC OSMOLALITY 278 mosm/kg (275-300); CALCIUM 8.8 mg/dL (8.5-10.1); CARBON DIOXIDE 34.3 mmol/L (21.0-32.0); CHLORIDE - SERUM 100 mmol/L (98-107); CREATININE - SERUM 0.7 mg/dL (0.6-1.3); GLUCOSE 153 mg/dL (74-106); PROTEIN - SERUM 6.5 g/dL (6.4-8.2); SODIUM 137 mmol/L (136-145); UREA NITROGEN 17 mg/dL (7-18); eGFR NON AFRICAN AMERICAN 88 mL/min (90-120)
[2020-11-17 05:05] LABS: POTASSIUM - SERUM 3.2 mmol/L (3.5-5.1)
[2020-11-17 08:35] VITALS: BP 112/58
[2020-11-17 12:10] VITALS: BP 114/48
[2020-11-17 16:16] VITALS: BP 120/54
--- NOTE | 2020-11-17 19:17 | MORECARE ---
CASE MANAGEMENT DISCHARGE SUMMARY PATIENT: CHON LUI UNIT: [id number] ADM DATE: 11/09/20 AGE: 70 : 50 SEX: F ROOM/BED: D.210 AUTHOR: MONET,DOC PHYSICIAN: REFERRING PHYSICIAN: CHERELLE NAVARRETE MD DATE OF SERVICE: 11/17/20 Case Management Discharge Planning Summary CT Patient Name: CHON LUI Attending MD : CHERELLE NIETO Medical Record: [id number] Encounter : [id number] Facility : [address] [place] [address] Admission Date : 116:53 Center Discharge Date : [address] [place] [address] Date of : DC Plan ID : [id number] Age/Sex/Martia : 70/ F/W Printed on : 11/17/20 19:16 CT DCP Review Details Anticipated D/C: Expected LOS : Case Status : INITIATED - Initial Reviewe: [id number] Holly Ling Initial Review: 11/09/2020 Planned Disposi: - Final Discharge: - Final Reviewer : : Final Review : Comments CT Entered Date Type Reviewer 11/13/20 10:22 CT Discharge Planning Maryse Simpson Comment UPDATES FAXED TO [facility] ([place], [place]). DCP Focus Questions & Answers [facility] CHON LUI MR#: [id number] /Age/Sex/Mvdlkg11-Wta-28 /70/F /W Attending Physician Name: BERNY NAVARRETE [id number] Patient Account:[id number] [facility] Page -1 of 1 All edits/amendments must be made on the electronic document DICTATION DATE: 11/17/201915 DESKTOP OPERATOR: DM 11/17/201915 RPT#: [id number] DC DATE: STATUS: ADM IN [facility] [address] [place] [address] END OF REPORT
--- NOTE | 2020-11-17 19:30 | NUR ---
RECEIVED REPORT, WILL ASSUME CARE OF PT, DENIES ANY NEEDS AT THIS TIME, BED IS LOW, SRX2, CALL LIGHT IN REACH, WILL CONTINUE PLAN OF CARE
[2020-11-17 22:30] VITALS: BP 104/55
--- NOTE | 2020-11-18 00:25 | NUR ---
CHANGE FEEDING BAG
[2020-11-18 04:00] VITALS: BP 122/46
--- NOTE | 2020-11-18 04:46 | NUR ---
I have reviewed this patient and I concur with the Shift Assessment completed by the Licensed Practical Nurse today this shift.
[2020-11-18 05:00] LABS: BASOPHILS 0.1 % (0-2); EOSINOPHILS 1.8 % (0-7); HEMATOCRIT 30.9 % (36.0-48.0); IMMATURE GRANULOCYTES 0.6 % (0-5); LYMPHOCYTE ABS# 2.04 10x3/uL (1.18-3.74); LYMPHOCYTES 23.4 % (15-50); MCH 27.1 pg (26.0-34.0); MCHC 29.1 g/dL (31.0-37.0); MCV 93.1 fL (80.0-100.0); MEAN PLATELET VOLUME 9.1 fL (7.4-10.4); MONOCYTES 6.8 % (2-11); NEUTROPHIL ABS# 5.85 10x3/uL (1.56-6.13); NEUTROPHILS 67.3 % (40-80); PLATELET COUNT 409 10x3/uL (130-400); RBC 3.32 10x6/uL (4.00-5.40); RDW 15.6 % (11.5-14.5); WBC 8.7 10x3/uL (4.8-10.8)
[2020-11-18 05:29] LABS: ALKALINE PHOSPHATASE 89 U/L (30-120); ALT (SGPT) 10 U/L (10-68); BILIRUBIN - TOTAL 0.16 mg/dL (0.2-1.3); CALC OSMOLALITY 278 mosm/kg (275-300); CALCIUM 8.5 mg/dL (8.5-10.1); CARBON DIOXIDE 37.3 mmol/L (21.0-32.0); CHLORIDE - SERUM 99 mmol/L (98-107); CREATININE - SERUM 0.6 mg/dL (0.6-1.3); GLUCOSE 119 mg/dL (74-106); POTASSIUM - SERUM 3.5 mmol/L (3.5-5.1); PROTEIN - SERUM 6.6 g/dL (6.4-8.2); SODIUM 139 mmol/L (136-145); THYROID STIMULATING HORMONE 0.43 uIU/mL (0.36-3.74); UREA NITROGEN 12 mg/dL (7-18); eGFR NON AFRICAN AMERICAN > 90 mL/min (90-120)
--- NOTE | 2020-11-18 07:00 | NUR ---
RECEIVED REPORT. ASSUMED CARE OF PATIENT. 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 BEDSIDE SHIFT REPORT COMPLETE. WHITE BOARD UPDATED. NO DISTRESS. CALL LIGHT WITHIN REACH.
[2020-11-18 08:58] VITALS: BP 105/46
--- NOTE | 2020-11-18 11:24 | NUR ---
MEDICATED FOR PAIN AT THIS TIME. TOLERATING FEEDING WELL. NO DISTRESS.
--- NOTE | 2020-11-18 12:23 | NUR ---
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 Tolerating TF @ goal rate. Diet: Jevity 1.5 @ 40 mL/hr + H2O flushes 30 mL q hr -provides 1440 kcal (91-111% est needs) & 61 g protein (94-122% est needs) daily No new wt; last wt: 115# (11/11) Labs noted: Glu 119, Alb 2.0 Meds noted: Florajen, Protonix, Mylanta, sodium chloride, Lasix, electrolyte protocol -Nutrition needs unchanged since initial assessment; no new wt available. -Need new wt. -RD will follow up within 3-4 days.
--- NOTE | 2020-11-18 15:26 | NUR ---
PATIENT OFFICE MACHINE INSTALLER LIGHT AGAIN AFTER THIS NURSE JUST LEFT THE ROOM. PATIENT OFFICE MACHINE INSTALLER LIGHT ALL DAY FOR ODD REQUESTS AFTER THE NURSE OR BUILDING CODE INSPECTOR LEAVE THE ROOM. PATIENT NOW WANTING HER CELL PHONE AND IT WAS LYING NEXT TO HER IN SITE ON TOP OF HER BLANKET. NO FURTHER NEEDS.
[2020-11-18 15:53] VITALS: BP 102/42
--- NOTE | 2020-11-18 17:04 | NUR ---
MEDICATED FOR PAIN AT THIS TIME. NO DISTRESS.
--- NOTE | 2020-11-18 19:05 | NUR ---
pt lying in bed, awake, alert no distress noted will continue to monitor
[2020-11-18 20:00] VITALS: BP 121/47
--- NOTE | 2020-11-18 20:35 | NUR ---
PEG PLACEMENT VERIFIED BY AUSCULTATION, NO RESIDUAL NOTED AT THIS TIME. WILL CONTINUE TO MONITOR
--- NOTE | 2020-11-18 20:45 | NUR ---
pt reports her sistere today, tearful at times. Would like a PRN anxiety med if possible for is she needs it. Paged MD medical transcription radiology. Spoke to Dr armendariz regarding cardizem gtt earlier this shift, per Dr Armendariz he will look at cardizem and likely change her to PO. will clarify with medical transcription radiology MD when page is returned spoke to RT, suctioning performed per RT approx [address] minimal to now secretions reported with suctioning
--- NOTE | 2020-11-18 22:45 | NUR ---
pt requested md paged for antianxiety med, paged med longshore equipment operator
--- NOTE | 2020-11-18 23:28 | NUR ---
PT REQUESTED TRACH SX RT REPORTS UNABLE TO DO AT THIS TIME THEY ARE IN ER. TRACH SX PERFORMED, PT TOLERATED WELL O2 SAT 93% THROUGHOUT SCANT AMT WT-YELLOW SECRETIONS NOTED NO DISTRESS NOTED WILL CONTINUE TO MONTIOR
--- NOTE | 2020-11-19 00:20 | NUR ---
SPOKE TO DR OBREGON ATIVAN PRN ORDER RECEIVED FOR ANXIETY. ANTONIETTA URIARTE TO START CARDIZEM 60 MG PO BID AND MARÍA CARDIZEM GTT OFF. SPOKE TO MICHEAL DO, ICU CN TO DETERMINE PROTOCOL ADVICED TO START PO CARDIZEM AT 0900 AND TAPER GTT TO 2.5ML/HR FOR 2 HRS THEN DC IF PT TOLERATES
--- NOTE | 2020-11-19 01:28 | NUR ---
TF BAG AND TUBING CHANGED PRN ATIVAN GIVEN PER PT REQUEST D/T ANXIETY NO ACUTE DISTRESS WILL CONTINUE TO MONITOR
[2020-11-19 04:00] VITALS: BP 124/71
--- NOTE | 2020-11-19 05:44 | NUR ---
PT CONT PULSE OX ALARMING O2 SAT 86% ON 26% TRACH 6 L, CALLED RT NO UD TX AVAILABLE, SUCTION PERFORMED NO SERETIONS NOTED WITH SUCTION BUT PT DID COUGH SEVERAL TIMES, O2 SAT STAYED 85-86% CALLED RT, RT AFVISED INCREASE TO 8 L 30% WHEN I RETURNED TO PT ROOM TO DO THIS SHE HAD IMPROVED TO 92-93% ON 26% 6L, CALLED RT O2 SETTING TO STAY AT 26% 6 L, PT WITH NO ACUTE DISTRESS AT THSI TIME REPORTS SHE IS HOT, DOORS CLOSED TO ROOM CALL LIGHT IN REACH CELL PHONE IN [facility] WILL CONTINUE TO MONITOR
--- NOTE | 2020-11-19 06:05 | NUR ---
pt family called [facility], reports pt called them and said she is in distress. Nurse returned to pt room to check, O2 sat 85-86% pt reports she is hot. Adjusted O2 to 30% 8L, O2 sat immediately improved to 93-98% pt appears to be resting more comfortably. discussed with RT. pt call light in reach will continue to monitor
[2020-11-19 07:28] VITALS: BP 126/73
--- NOTE | 2020-11-19 08:12 | NUR ---
AM MEDS GIVEN AT THIS TIME PER EMAR. IV INFUSING WITHOUT COMPLICATIONS. PT RR EVEN NON LABORED. PT AWAKE AND ALERT, DENIES ANY PAIN OR NEEDS AT THIS TIME. CLWR.
--- NOTE | 2020-11-19 11:19 | NUR ---
MEDS GIVEN PER EMAR. CARDIZEM D/C PER ORDER. PT LYING IN BED WITH HOB RIASED, RR EVEN NON LABORED. NO NEEDS VOICED. CLWR.
--- NOTE | 2020-11-19 14:48 | NUR ---
PT LINENS CHANGED AND SHAVON CARE PROVIDED. PUREWICK CHANGED AT THIS TIME. PT TOLERATED WELL. IV INUFSING WITHOUT DIFFICULTY. NO NEEDS VOICED. CLWR
[2020-11-19 15:00] VITALS: BP 122/70
--- NOTE | 2020-11-19 16:29 | NUR ---
PT SUCTIONED AT THIS TIME PER REQUEST. PLACED VALVE ON TRACH AND PT COUGHED, ASSISTING HERSELF IN CLEARING HER THROAT. PT RR EVEN NON LABORED, O2 AND HR WITHIN NORMAL LIMITS. NO FURTHER NEEDS VOICED. IV INFUSING WITHOUT COMPLICATIONS. CLWR
[2020-11-19 21:00] VITALS: BP 121/51
[2020-11-19 23:56] VITALS: BP 99/43
[2020-11-20 04:00] VITALS: BP 118/44
--- NOTE | 2020-11-20 05:06 | NUR ---
PT PORT DID NOT DRAW BLOOD. LAB NOTIFIED AND WILL STICK PATIENT FOR ORDERED LABS.
[2020-11-20 06:25] LABS: BASOPHILS 0.1 % (0-2); EOSINOPHILS 3.7 % (0-7); HEMATOCRIT 30.4 % (36.0-48.0); HEMOGLOBIN 9.2 g/dL (12-16); IMMATURE GRANULOCYTES 1.1 % (0-5); LYMPHOCYTE ABS# 1.32 10x3/uL (1.18-3.74); LYMPHOCYTES 17.4 % (15-50); MCHC 30.3 g/dL (31.0-37.0); MEAN PLATELET VOLUME 8.8 fL (7.4-10.4); MONOCYTES 7.9 % (2-11); NEUTROPHIL ABS# 5.28 10x3/uL (1.56-6.13); NEUTROPHILS 69.8 % (40-80); PLATELET COUNT 367 10x3/uL (130-400); RBC 3.41 10x6/uL (4.00-5.40); RDW 15.8 % (11.5-14.5); WBC 7.6 10x3/uL (4.8-10.8)
[2020-11-20 06:34] LABS: MCV 89.1 fL (80.0-100.0)
[2020-11-20 07:29] LABS: ALBUMIN 1.9 g/dL (3.4-5.0); ALKALINE PHOSPHATASE 95 U/L (30-120); ALT (SGPT) 11 U/L (10-68); BILIRUBIN - TOTAL 0.23 mg/dL (0.2-1.3); CALC OSMOLALITY 270 mosm/kg (275-300); CALCIUM 8.4 mg/dL (8.5-10.1); CARBON DIOXIDE 32.7 mmol/L (21.0-32.0); CHLORIDE - SERUM 101 mmol/L (98-107); CREATININE - SERUM 0.5 mg/dL (0.6-1.3); GLUCOSE 99 mg/dL (74-106); POTASSIUM - SERUM 3.9 mmol/L (3.5-5.1); PROTEIN - SERUM 6.4 g/dL (6.4-8.2); SODIUM 136 mmol/L (136-145); UREA NITROGEN 9 mg/dL (7-18); eGFR NON AFRICAN AMERICAN > 90 mL/min (90-120)
[2020-11-20 08:01] VITALS: BP 114/50
--- NOTE | 2020-11-20 08:50 | NUR ---
PEG MEDS HELD UNTIL AFTER BRONCH THIS AM. PT PURWICK CHANGED, SHAVON CARE PROVIDED, BM X1. PT AWAKE AND ALERT, NO NEEDS VOICED. CLWR.
--- NOTE | 2020-11-20 10:27 | NUR ---
PT BEING PREPPED FOR BRONCH AT THIS TIME.
--- NOTE | 2020-11-20 11:09 | NUR ---
PT COMPLETED BRONCH BY DR GÓMEZ AT THIS TIME. PT TOLERATED WITH ANXIETY NOTED. MEDS GIVEN INCLUDING PRN ATIVAN D/T ANXIOUSNESS. PT AWAKE AND ALERT, LIGHTS TURNED OFF. SHAVON CARE GIVEN, NEW LINENS PLACED. PT DENIES ANY NEEDS AT THIS TIME. PHONE GIVEN PER REQUEST. CLWR.
[2020-11-20 15:24] VITALS: BP 122/55
--- NOTE | 2020-11-20 15:44 | NUR ---
PT TRACH SUCTIONED PER REQUEST AT THIS TIME. PT RR EVEN NON LABORED. O2 STABLE, NO NEEDS VOICED. CLWR.
[2020-11-20 19:56] VITALS: BP 129/44
[2020-11-20 23:02] VITALS: BP 106/39
[2020-11-21 04:15] VITALS: BP 126/47
[2020-11-21 08:25] VITALS: BP 115/48
--- NOTE | 2020-11-21 10:16 | NUR ---
Nutrition Follow-up: Bronch yesterday. Nursing reports pt tolerating TF @ goal rate. Diet: Jevity 1.5 @ 40 mL/hr + H2O flushes 30 mL q hr No new wt; last wt: 115# (11/11) Labs noted (11/20): Ca 8.4, Alb 1.9 Meds noted: Florajen, Protonix, sodium chloride, Mylanta, Imodium, Lasix, electrolyte protocol -TF as tolerated. -Need new wt. -RD follow-up: 11/18
--- NOTE | 2020-11-21 11:32 | NUR ---
OK TO DISCHARGE PER DR GÓMEZ
[2020-11-21 12:23] VITALS: BP 114/54
[2020-11-21 17:04] VITALS: BP 157/71
[2020-11-21 17:08] LABS: ACID FAST SMEAR Negative (()); AFB SPECIMEN PROCESSING Concentration (())
[2020-11-21 17:10] VITALS: BP 97/70
[2020-11-21 20:49] VITALS: BP 127/53
--- NOTE | 2020-11-21 23:29 | NUR ---
PT RESTING IN BED. PLEASANT/COOPERATIVE. ASKED TO BE SUCTIONED JEVITY INFUSING WITHOUT DIFFICULTY
--- NOTE | 2020-11-21 23:43 | MORECARE ---
CASE MANAGEMENT DISCHARGE SUMMARY PATIENT: CHON LUI UNIT: [id number] ADM DATE: 11/09/20 AGE: 70 : 50 SEX: F ROOM/BED: .[facility] AUTHOR: MONET,DOC PHYSICIAN: REFERRING PHYSICIAN: CHERELLE NAVARRETE MD DATE OF SERVICE: 11/21/20 Case Management Discharge Planning Summary COMMENTS ENTERED DATE: 11/21/20 23:33 CT COMMENT TYPE: Discharge Planning REVIEWER: Cassandra Ling CM received a consult from Dr. Morillo requesting Duval cough assist device. CM spoke with Marixa ext Softricity with resp therapy. She stated that she would speak with Ilia Mccain in am to see exactly what he is wanting for pt. She stated that she will let CM know what he wants so CM can follow through with request. ENTERED DATE: 11/13/20 10:22 CT COMMENT TYPE: Discharge Planning REVIEWER: Maryse Simpson UPDATES FAXED TO [facility]. [facility] REVIEW SUMMARY ANTICIPATED D/C DATE: EXPECTED LOS : CASE STATUS: DCP Initiated INITIAL REVIEW: 11/09/2020 INITIAL REVIEWER: Cassandra Ling FINAL DISCHARGE DISPOSITION: : FINAL REVIEWER: FINAL REVIEW DATE: DCP Focus Questions & Answers QUESTION: ANSWER : PATIENT: CHON LUI ENCOUNTER: [id number] MEDICAL RECORD#: [id number] ADMISSION DATE: 11/09/2020 DISCHARGE DATE: ATTENDING MD: CHERELLE LOERA : AGE: 70 MARITAL STATUS: W DC PLAN ID: [id number] FACILITY: [facility] PRINTED ON: 11/21/20 23:43 CT All edits/amendments must be made on the electronic document DICTATION DATE: 11/21/202342 BOAT PAINTER: NAHUN 11/21/202342 RPT#: [id number] DC DATE: STATUS: ADM IN [place] [address] [place] [address] END OF REPORT
[2020-11-22 01:11] VITALS: BP 108/41
[2020-11-22 04:59] VITALS: BP 103/41
[2020-11-22 08:29] VITALS: BP 115/51
--- NOTE | 2020-11-22 09:34 | MORECARE ---
CASE MANAGEMENT DISCHARGE SUMMARY PATIENT: CHON LUI UNIT: [id number] ADM DATE: 11/09/20 AGE: 70 : 50 SEX: F ROOM/BED: D.2101 AUTHOR: MONET,DOC PHYSICIAN: REFERRING PHYSICIAN: CHERELLE NAVARRETE MD DATE OF SERVICE: 11/22/20 Case Management Discharge Planning Summary COMMENTS ENTERED DATE: 11/22/20 9:25 CT COMMENT TYPE: Discharge Planning REVIEWER: Maryse Simpson CM called [facility] and spoke with Josh about a percussion vest or a Duval Cough assist device. She states they do not have one at their facility and will need to call corporate to see if they can get one for the LT residents and call me back. CM will continue to follow and assist with discharge planning/needs. ENTERED DATE: 11/21/20 23:33 CT COMMENT TYPE: Discharge Planning REVIEWER: Cassandra Ling CM received a consult from Dr. Morillo requesting Duval cough assist device. CM spoke with Marixa [facility] Yordy with resp therapy. She stated that she would speak with Ilia Mccain in am to see exactly what he is wanting for pt. She stated that she will let CM know what he wants so CM can follow through with request. ENTERED DATE: 11/13/20 10:22 CT COMMENT TYPE: Discharge Planning REVIEWER: Maryse Simpson UPDATES FAXED TO [facility]. PAP REVIEW SUMMARY ANTICIPATED D/C DATE: EXPECTED LOS : CASE STATUS: DCP Initiated INITIAL REVIEW: 11/09/2020 INITIAL REVIEWER: Cassandra Ling FINAL DISCHARGE DISPOSITION: : FINAL REVIEWER: FINAL REVIEW DATE: DCP Focus Questions & Answers QUESTION: ANSWER : PATIENT: CHON LUI ENCOUNTER: [id number] MEDICAL RECORD#: [id number] ADMISSION DATE: 11/09/2020 DISCHARGE DATE: ATTENDING MD: CHERELLE LOERA : AGE: 70 MARITAL STATUS: W DC PLAN ID: [id number] FACILITY: [facility] PRINTED ON: 11/22/20 9:34 CT All edits/amendments must be made on the electronic document DICTATION DATE: 11/22/20933 SUPERVISOR TANK STORAGE: NAHUN 11/22/20933 RPT#: [id number] DC DATE: STATUS: ADM IN [facility] [address] [place] [address] END OF REPORT
[2020-11-22 11:11] LABS: FUNGUS STAIN Final report (())
--- NOTE | 2020-11-22 11:42 | MORECARE ---
CASE MANAGEMENT DISCHARGE SUMMARY PATIENT: CHON LUI UNIT: [id number] ADM DATE: 11/09/20 AGE: 70 : 50 SEX: F ROOM/BED: D.2101 AUTHOR: MONET,DOC PHYSICIAN: REFERRING PHYSICIAN: CHERELLE NAVARRETE MD DATE OF SERVICE: 11/22/20 Case Management Discharge Planning Summary COMMENTS ENTERED DATE: 11/22/20 9:25 CT COMMENT TYPE: Discharge Planning REVIEWER: Maryse Simpson CM called [facility] and spoke with Josh about a percussion vest or a Duval Cough assist device. She states they do not have one at their facility and will need to call corporate to see if they can get one for the LT residents and call me back. CM will continue to follow and assist with discharge planning/needs. ENTERED DATE: 11/21/20 23:33 CT COMMENT TYPE: Discharge Planning REVIEWER: Cassandra Ling CM received a consult from Dr. Morillo requesting Duval cough assist device. CM spoke with Marixa [facility] Yordy with resp therapy. She stated that she would speak with Ilia Mccain in am to see exactly what he is wanting for pt. She stated that she will let CM know what he wants so CM can follow through with request. ENTERED DATE: 11/13/20 10:22 CT COMMENT TYPE: Discharge Planning REVIEWER: Maryse Simpson UPDATES FAXED TO [facility]. [facility]P REVIEW SUMMARY ANTICIPATED D/C DATE: EXPECTED LOS : CASE STATUS: DCP Initiated INITIAL REVIEW: 11/09/2020 INITIAL REVIEWER: Cassandra Ling FINAL DISCHARGE DISPOSITION: : FINAL REVIEWER: FINAL REVIEW DATE: DCP Focus Questions & Answers QUESTION: ANSWER : PATIENT: CHON LUI ENCOUNTER: [id number] MEDICAL RECORD#: [id number] ADMISSION DATE: 11/09/2020 DISCHARGE DATE: ATTENDING MD: CHERELLE LOERA : AGE: 70 MARITAL STATUS: W DC PLAN ID: [id number] FACILITY: [facility] PRINTED ON: 11/22/20 11:42 CT All edits/amendments must be made on the electronic document DICTATION DATE: 11/22/20 114 [place] PRODUCT CONSULTANT: NAHUN 11/22/20 1142 RPT#: [id number] DC DATE: STATUS: ADM IN [facility] [address] [place] [address] END OF REPORT
--- NOTE | 2020-11-22 11:53 | MORECARE ---
CASE MANAGEMENT DISCHARGE SUMMARY PATIENT: CHON LUI UNIT: [id number] ADM DATE: 11/09/20 AGE: 70 : 50 SEX: F ROOM/BED: D.2101 AUTHOR: MONET,DOC PHYSICIAN: REFERRING PHYSICIAN: CHERELLE NAVARRETE MD DATE OF SERVICE: 11/22/20 Case Management Discharge Planning Summary COMMENTS ENTERED DATE: 11/22/20 11:37 CT COMMENT TYPE: Discharge Planning REVIEWER: Maryse Simpson CM received an order for a cough assist device. I called [facility], they are using a percussion vest. I called Dr. Morillo and he voiced that a cough assist device would be preferable if facility can accommodate. I spoke with Josh at [facility] and they do not have either one. Josh asks that I order what Dr. Morillo requests from "any DME" and they would need training prior to her discharging back to [facility]. I called patient's daughter and her preference is [facility] or any DME that can supply need. I called [facility] and spoke with Braulio, they cannot get a percussion vest or cough assist device. I called [facility] and they can provide either device. They have the Duval cough assist device in stock and will call [facility] for contract and for teaching ( I spoke with Sandy). I faxed order and clinical to [facility]. ENTERED DATE: 11/22/20 9:25 CT COMMENT TYPE: Discharge Planning REVIEWER: Maryse Simpson CM called [facility] and spoke with Josh about a percussion vest or a Duval Cough assist device. She states they do not have one at their facility and will need to call corporate to see if they can get one for the [facility] residents and call me back. CM will continue to follow and assist with discharge planning/needs. ENTERED DATE: 11/21/20 23:33 CT COMMENT TYPE: Discharge Planning REVIEWER: Cassandra Ling CM received a consult from Dr. Morillo requesting Duval cough assist device. CM spoke with Marixa ext YordyYudi with resp therapy. She stated that she would speak with Ilia Mccain in am to see exactly what he is wanting for pt. She stated that she will let CM know what he wants so CM can follow through with request. ENTERED DATE: 11/13/20 10:22 CT COMMENT TYPE: Discharge Planning REVIEWER: Maryse Simpson UPDATES FAXED TO [facility]. [facility] REVIEW SUMMARY ANTICIPATED D/C DATE: EXPECTED LOS : CASE STATUS: DCP Initiated INITIAL REVIEW: 11/09/2020 INITIAL REVIEWER: Cassandra Ling FINAL DISCHARGE DISPOSITION: : FINAL REVIEWER: FINAL REVIEW DATE: DCP Focus Questions & Answers QUESTION: ANSWER : PATIENT: CHON LUI ENCOUNTER: [id number] MEDICAL RECORD#: [id number] ADMISSION DATE: 11/09/2020 DISCHARGE DATE: ATTENDING MD: CHERELLE LOERA : AGE: 70 MARITAL STATUS: W DC PLAN ID: [id number] FACILITY: [facility] PRINTED ON: 11/22/20 11:53 CT All edits/amendments must be made on the electronic document DICTATION DATE: 11/22/20 115 IN FLIGHT CREW MEMBER: NAHUN 11/22/20 1153 RPT#: [id number] DC DATE: STATUS: ADM IN [facility] [address] [place] [address] END OF REPORT
[2020-11-22 12:23] VITALS: BP 100/37
--- NOTE | 2020-11-22 12:55 | NUR ---
ASSUMMED CARE FROM PRIMARY CARE NURSE. 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 LEFT IP SEEN ACCESSED WITH NS INFUSING AT KVO. TUBE FEEDING TO LEFT UPPER QUADRANT WITH JVITY INFUSING AT 40 CC/HR. TRACH COLOR IN USE WITH CONTINUOUS PULSE OX, SAT IS 100 %. GLASSES ON. ON LOVENOX. DENIES NEEDS AT THIS TIME. ON HEART MONITOR, SR. CALL LIGHT AND CELL PHONE ON RIGHT SIDE.
[2020-11-22 16:45] VITALS: BP 105/42
[2020-11-22 21:14] VITALS: BP 121/49
--- NOTE | 2020-11-22 23:33 | NUR ---
PLEASANT & COOPERATIVE. JEVITY INFUSING WITHOUT DIFFICULTY PERICARE DONE S/T INCONTINENCE OF URINE, PUREWICK REPLACED
[2020-11-23 01:47] VITALS: BP 111/45
[2020-11-23 05:50] VITALS: BP 101/43
[2020-11-23 06:14] LABS: BASOPHILS 0.5 % (0-2); EOSINOPHILS 5.7 % (0-7); HEMOGLOBIN 8.8 g/dL (12-16); IMMATURE GRANULOCYTES 0.8 % (0-5); LYMPHOCYTE ABS# 1.72 10x3/uL (1.18-3.74); LYMPHOCYTES 22.6 % (15-50); MCH 27.1 pg (26.0-34.0); MCHC 30.3 g/dL (31.0-37.0); MCV 89.2 fL (80.0-100.0); MEAN PLATELET VOLUME 9.1 fL (7.4-10.4); MONOCYTES 7.8 % (2-11); NEUTROPHIL ABS# 4.76 10x3/uL (1.56-6.13); NEUTROPHILS 62.6 % (40-80); PLATELET COUNT 386 10x3/uL (130-400); RBC 3.25 10x6/uL (4.00-5.40); RDW 16.2 % (11.5-14.5); WBC 7.6 10x3/uL (4.8-10.8)
[2020-11-23 06:21] LABS: ALBUMIN 2.1 g/dL (3.4-5.0); ALKALINE PHOSPHATASE 110 U/L (30-120); ALT (SGPT) 11 U/L (10-68); BILIRUBIN - TOTAL 0.18 mg/dL (0.2-1.3); CALC OSMOLALITY 267 mosm/kg (275-300); CALCIUM 8.8 mg/dL (8.5-10.1); CARBON DIOXIDE 35.3 mmol/L (21.0-32.0); CHLORIDE - SERUM 99 mmol/L (98-107); CREATININE - SERUM 0.6 mg/dL (0.6-1.3); GLUCOSE 118 mg/dL (74-106); PROTEIN - SERUM 6.6 g/dL (6.4-8.2); SODIUM 134 mmol/L (136-145); UREA NITROGEN 11 mg/dL (7-18); eGFR NON AFRICAN AMERICAN > 90 mL/min (90-120)
[2020-11-23 08:00] VITALS: BP 109/46
[2020-11-23 11:00] VITALS: BP 110/50
[2020-11-23 15:00] VITALS: BP 108/49
--- NOTE | 2020-11-23 17:20 | MORECARE ---
CASE MANAGEMENT DISCHARGE SUMMARY PATIENT: CHON LUI UNIT: [id number] ADM DATE: 11/09/20 AGE: 70 : 50 SEX: F ROOM/BED: D.2101 AUTHOR: MONET,DOC PHYSICIAN: REFERRING PHYSICIAN: CHERELLE NAVARRETE MD DATE OF SERVICE: 11/23/20 Case Management Discharge Planning Summary COMMENTS ENTERED DATE: 11/23/20 17:18 CT COMMENT TYPE: Discharge Planning REVIEWER: Maryse Simpson CM will contact Josh on Wednesday to see if teaching is complete for the Duval cough device and patient can dc to [facility] when stable. ENTERED DATE: 11/22/20 11:37 CT COMMENT TYPE: Discharge Planning REVIEWER: Maryse Simpson CM received an order for a cough assist device. I called [facility], they are using a percussion vest. I called Dr. Morillo and he voiced that a cough assist device would be preferable if facility can accommodate. I spoke with Josh at [facility] and they do not have either one. Josh asks that I order what Dr. Morillo requests from "any DME" and they would need training prior to her discharging back to [facility]. I called patient's daughter and her preference is [facility] or any DME that can supply need. I called [facility] and spoke with Braulio, they cannot get a percussion vest or cough assist device. I called [facility] and they can provide either device. They have the Duval cough assist device in stock and will call [facility] for contract and for teaching ( I spoke with Sandy). I faxed order and clinical to [facility]. ENTERED DATE: 11/22/20 9:25 CT COMMENT TYPE: Discharge Planning REVIEWER: Maryse Simpson CM called [facility] and spoke with Josh about a percussion vest or a Duval Cough assist device. She states they do not have one at their facility and will need to call corporate to see if they can get one for the LTC residents and call me back. CM will continue to follow and assist with discharge planning/needs. ENTERED DATE: 11/21/20 23:33 CT COMMENT TYPE: Discharge Planning REVIEWER: Cassandra Ling CM received a consult from Dr. Morillo requesting Duval cough assist device. CM spoke with Marixakendell Scales with resp therapy. She stated that she would speak with Ilia Mccain in am to see exactly what he is wanting for pt. She stated that she will let CM know what he wants so CM can follow through with request. ENTERED DATE: 11/13/20 10:22 CT COMMENT TYPE: Discharge Planning REVIEWER: Maryse Simpson UPDATES FAXED TO [facility]. [facility] REVIEW SUMMARY ANTICIPATED D/C DATE: EXPECTED LOS : CASE STATUS: DCP Initiated INITIAL REVIEW: 11/09/2020 INITIAL REVIEWER: Cassandra Ling FINAL DISCHARGE DISPOSITION: : FINAL REVIEWER: FINAL REVIEW DATE: DCP Focus Questions & Answers QUESTION: ANSWER : PATIENT: CHON LUI ENCOUNTER: [id number] MEDICAL RECORD#: [id number] ADMISSION DATE: 11/09/2020 DISCHARGE DATE: ATTENDING MD: CHERELLE LOERA : AGE: 70 MARITAL STATUS: W DC PLAN ID: [id number] FACILITY: [facility] PRINTED ON: 11/23/20 17:20 CT All edits/amendments must be made on the electronic document DICTATION DATE: 11/23/201719 DEPENDENCY COUNSELOR: NAHUN 11/23/201719 RPT#: [id number] DC DATE: STATUS: ADM IN [facility] [address] [facility] END OF REPORT
[2020-11-23 20:30] VITALS: BP 134/54
[2020-11-24 00:30] VITALS: BP 114/46
[2020-11-24 04:30] VITALS: BP 139/52
[2020-11-24 08:42] VITALS: BP 108/40
--- NOTE | 2020-11-24 09:35 | NUR ---
RESTING IN BED, NO DSITRESS NOTED, O2 PER TRACH, JEVITY AT 40, YA WELL, IV PER PORT, CONT TO MONITOR
[2020-11-24 11:17] LABS: BASOPHILS 0.6 % (0-2); HEMATOCRIT 31.7 % (36.0-48.0); HEMOGLOBIN 9.5 g/dL (12-16); IMMATURE GRANULOCYTES 0.8 % (0-5); LYMPHOCYTE ABS# 2.16 10x3/uL (1.18-3.74); LYMPHOCYTES 21.4 % (15-50); MCH 27.1 pg (26.0-34.0); MCV 90.3 fL (80.0-100.0); MEAN PLATELET VOLUME 8.7 fL (7.4-10.4); MONOCYTES 6.3 % (2-11); NEUTROPHIL ABS# 6.75 10x3/uL (1.56-6.13); NEUTROPHILS 66.9 % (40-80); PLATELET COUNT 379 10x3/uL (130-400); RBC 3.51 10x6/uL (4.00-5.40); RDW 16.3 % (11.5-14.5)
[2020-11-24 11:21] LABS: WBC 10.1 10x3/uL (4.8-10.8)
[2020-11-24 11:43] VITALS: BP 110/46
[2020-11-24 12:43] LABS: ALBUMIN 2.4 g/dL (3.4-5.0); ALKALINE PHOSPHATASE 126 U/L (30-120); ALT (SGPT) 12 U/L (10-68); BILIRUBIN - TOTAL 0.17 mg/dL (0.2-1.3); CALC OSMOLALITY 269 mosm/kg (275-300); CALCIUM 8.6 mg/dL (8.5-10.1); CARBON DIOXIDE 32.7 mmol/L (21.0-32.0); CHLORIDE - SERUM 98 mmol/L (98-107); CREATININE - SERUM 0.6 mg/dL (0.6-1.3); GLUCOSE 112 mg/dL (74-106); POTASSIUM - SERUM 4.2 mmol/L (3.5-5.1); PROTEIN - SERUM 6.9 g/dL (6.4-8.2); SODIUM 135 mmol/L (136-145); UREA NITROGEN 11 mg/dL (7-18); eGFR NON AFRICAN AMERICAN > 90 mL/min (90-120)
[2020-11-24 16:33] VITALS: BP 106/50
--- NOTE | 2020-11-24 20:28 | NUR ---
ROUNDS MADE BY DR NAVARRETE. PT ASSESSED. NO NEW ORDERS.
[2020-11-24 22:06] VITALS: BP 113/51
[2020-11-25 08:44] VITALS: BP 137/50
--- NOTE | 2020-11-25 12:05 | NUR ---
Nutrition Reassessment/Follow-up: Tolerating TF @ goal rate. Noted BM x 3 today. Diet: Jevity 1.5 @ 40 mL/hr + H2O flushes 30 q hr No new wt; last wt: 115# (11/11) Labs noted: Na 135, Glu 112, Alb 2.4 Meds noted: Florajen, Protonix, sodium chloride, Mylanta, Lasix, Imodium (PRN), electrolyte protocol -Nutrition needs unchanged; no new wt available. -TF as tolerated. -Need new wt. -RD will follow up within 3-4 days if pt still admitted.
--- NOTE | 2020-11-25 13:21 | MORECARE ---
CASE MANAGEMENT DISCHARGE SUMMARY PATIENT: CHON LUI UNIT: [id number] ADM DATE: 11/09/20 AGE: 70 : 50 SEX: F ROOM/BED: D.2101 AUTHOR: MONET,DOC PHYSICIAN: REFERRING PHYSICIAN: CHERELLE NAVARRETE MD DATE OF SERVICE: 11/25/20 Case Management Discharge Planning Summary COMMENTS ENTERED DATE: 11/25/20 13:10 CT COMMENT TYPE: Discharge Planning REVIEWER: Maryse Simpson CM CALLED [facility] AND THEY ARE UNABLE TO INSERVICE [facility] ON THE USE OF THE COUGH ASSIST DEVICE. I CALLED THE RT FROM [facility] (EDWARD) AND SHE TELLS ME THAT IT WOULD TAKE EXTENSIVE TRAINING ON THIS FOR THE FACILITY AND SHE RECOMMENDS AN AFLO VEST SINCE THE PATIENT IS ALREADY USING A VEST HERE AND TOLERATING (PER NURSE) IT WELL. I FAXED THE ORDER TO [facility] AND EDWARD WILL F/U WITH THE FACILITY ON THIS AND GET THEM TRAINED. THE PATIENT WILL NEED TO BE FITTED WITH THE VEST PRIOR TO DISCHARGE. ENTERED DATE: 11/23/20 17:18 CT COMMENT TYPE: Discharge Planning REVIEWER: Maryse Simpson CM will contact Josh on Wednesday to see if teaching is complete for the Duval cough device and patient can dc to [facility] when stable. ENTERED DATE: 11/22/20 11:37 CT COMMENT TYPE: Discharge Planning REVIEWER: Maryse Simpson CM received an order for a cough assist device. I called [facility], they are using a percussion vest. I called Dr. Morillo and he voiced that a cough assist device would be preferable if facility can accommodate. I spoke with Josh at [facility] and they do not have either one. Josh asks that I order what Dr. Morillo requests from "any DME" and they would need training prior to her discharging back to [facility]. I called patient's daughter and her preference is [facility] or any DME that can supply need. I called [facility] and spoke with Braulio, they cannot get a percussion vest or cough assist device. I called [facility] and they can provide either device. They have the Duval cough assist device in stock and will call [facility] for contract and for teaching ( I spoke with Sandy). I faxed order and clinical to [facility]. ENTERED DATE: 11/22/20 9:25 CT COMMENT TYPE: Discharge Planning REVIEWER: Maryse Simpson CM called [facility] and spoke with Josh about a percussion vest or a Duval Cough assist device. She states they do not have one at their facility and will need to call corporate to see if they can get one for the [facility] residents and call me back. CM will continue to follow and assist with discharge planning/needs. ENTERED DATE: 11/21/20 23:33 CT COMMENT TYPE: Discharge Planning REVIEWER: Cassandra Ling CM received a consult from Dr. Morillo requesting Duval cough assist device. CM spoke with Marixa Alvarez with resp therapy. She stated that she would speak with Ilia Mccain in to see exactly what he is wanting for pt. She stated that she will let CM know what he wants so CM can follow through with request. ENTERED DATE: 11/13/20 10:22 CT COMMENT TYPE: Discharge Planning REVIEWER: Maryse Simpson UPDATES FAXED TO [facility]. DCP REVIEW SUMMARY ANTICIPATED D/C DATE: EXPECTED LOS : CASE STATUS: DCP Initiated INITIAL REVIEW: 11/09/2020 INITIAL REVIEWER: Cassandra Ling FINAL DISCHARGE DISPOSITION: : FINAL REVIEWER: FINAL REVIEW DATE: DCP Focus Questions & Answers QUESTION: ANSWER : PATIENT: CHON LUI ENCOUNTER: [id number] MEDICAL RECORD#: [id number] ADMISSION DATE: 11/09/2020 DISCHARGE DATE: ATTENDING MD: CHERELLE LOERA : AGE: 70 MARITAL STATUS: W DC PLAN ID: [id number] FACILITY: [facility] PRINTED ON: 11/25/20 13:21 CT All edits/amendments must be made on the electronic document DICTATION DATE: 11/25/20 132 MVA OPERATOR: NAHUN 11/25/20 1321 RPT#: [id number] DC DATE: STATUS: ADM IN [facility] [address] [place] [address] END OF REPORT
[2020-11-25 13:36] VITALS: BP 122/96
--- NOTE | 2020-11-25 16:28 | MORECARE ---
CASE MANAGEMENT DISCHARGE SUMMARY PATIENT: CHON LUI UNIT: [id number] ADM DATE: 11/09/20 AGE: 70 : 50 SEX: F ROOM/BED: D.2101 AUTHOR: MONET,DOC PHYSICIAN: REFERRING PHYSICIAN: CHERELLE NAVARRETE MD DATE OF SERVICE: 11/25/20 Case Management Discharge Planning Summary COMMENTS ENTERED DATE: 11/25/20 16:17 CT COMMENT TYPE: Discharge Planning REVIEWER: Maryse Moreno from [facility] states they did approve the cost of the AFLO vest for the patient. [facility] will need to measure her and order the Vest and instruct [facility] prior to discharge. ENTERED DATE: 11/25/20 13:10 CT COMMENT TYPE: Discharge Planning REVIEWER: Maryse Simpson CM CALLED [facility] AND THEY ARE UNABLE TO INSERVICE [facility] ON THE USE OF THE COUGH ASSIST DEVICE. I CALLED THE RT FROM [facility] (EDWARD) AND SHE TELLS ME THAT IT WOULD TAKE EXTENSIVE TRAINING ON THIS FOR THE FACILITY AND SHE RECOMMENDS AN AFLO VEST SINCE THE PATIENT IS ALREADY USING A VEST HERE AND TOLERATING (PER NURSE) IT WELL. I FAXED THE ORDER TO [facility] AND EDWARD WILL F/U WITH THE FACILITY ON THIS AND GET THEM TRAINED. THE PATIENT WILL NEED TO BE FITTED WITH THE VEST PRIOR TO DISCHARGE. ENTERED DATE: 11/23/20 17:18 CT COMMENT TYPE: Discharge Planning REVIEWER: Maryse Simpson CM will contact Josh on Wednesday to see if teaching is complete for the Duval cough device and patient can dc to [facility] when stable. ENTERED DATE: 11/22/20 11:37 CT COMMENT TYPE: Discharge Planning REVIEWER: Maryse Simpson CM received an order for a cough assist device. I called [facility], they are using a percussion vest. I called Dr. Morillo and he voiced that a cough assist device would be preferable if facility can accommodate. I spoke with Josh at [facility] and they do not have either one. Josh asks that I order what Dr. Morillo requests from "any DME" and they would need training prior to her discharging back to [facility]. I called patient's daughter and her preference is [facility] or any DME that can supply need. I called [facility] and spoke with Braulio, they cannot get a percussion vest or cough assist device. I called [facility] and they can provide either device. They have the Duval cough assist device in stock and will call [facility] for contract and for teaching ( I spoke with Sandy). I faxed order and clinical to [facility]. ENTERED DATE: 11/22/20 9:25 CT COMMENT TYPE: Discharge Planning REVIEWER: Maryse Simpson CM called [facility] and spoke with Josh about a percussion vest or a Duval Cough assist device. She states they do not have one at their facility and will need to call corporate to see if they can get one for the [facility] residents and call me back. CM will continue to follow and assist with discharge planning/needs. ENTERED DATE: 11/21/20 23:33 CT COMMENT TYPE: Discharge Planning REVIEWER: Cassandra Ling CM received a consult from Dr. Morillo requesting Duval cough assist device. CM spoke with Marixa Alvarez with resp therapy. She stated that she would speak with Ilia Mccain in am to see exactly what he is wanting for pt. She stated that she will let CM know what he wants so CM can follow through with request. ENTERED DATE: 11/13/20 10:22 CT COMMENT TYPE: Discharge Planning REVIEWER: Maryse Simpson UPDATES FAXED TO [facility]. DCP REVIEW SUMMARY ANTICIPATED D/C DATE: EXPECTED LOS : CASE STATUS: DCP Initiated INITIAL REVIEW: 11/09/2020 INITIAL REVIEWER: Cassandra Ling FINAL DISCHARGE DISPOSITION: : FINAL REVIEWER: FINAL REVIEW DATE: DCP Focus Questions & Answers QUESTION: ANSWER : PATIENT: CHON LUI ENCOUNTER: [id number] MEDICAL RECORD#: [id number] ADMISSION DATE: 11/09/2020 DISCHARGE DATE: ATTENDING MD: CHERELLE LOERA : AGE: 70 MARITAL STATUS: W DC PLAN ID: [id number] FACILITY: [facility] PRINTED ON: 11/25/20 16:28 CT All edits/amendments must be made on the electronic document DICTATION DATE: 11/25/201627 [facility] ADMIN: NAHUN 11/25/201627 RPT#: [id number] DC DATE: STATUS: ADM IN [facility] [address] [place] [address] END OF REPORT
[2020-11-25 19:24] VITALS: BP 121/50
[2020-11-26 03:47] VITALS: BP 122/40
--- NOTE | 2020-11-26 05:05 | NUR ---
I have reviewed this patient and I concur with the Shift Assessment completed by the Licensed Practical Nurse today this shift.
--- NOTE | 2020-11-26 08:15 | NUR ---
NURSE IN ROOM TO GIVE MEDS THRU PEG . PATINET IS RESTING WELL IN BED. PATIENT DENIES NEEDS. VITALS WERE CHECKED THIS AM, BP IS A LITTLE LOW. CALL LIGHT IN REACH. NAD NOTED
[2020-11-26 08:17] VITALS: BP 120/46
[2020-11-26 09:32] LABS: BASOPHILS 0.5 % (0-2); EOSINOPHILS 1.7 % (0-7); HEMOGLOBIN 9.2 g/dL (12-16); IMMATURE GRANULOCYTES 0.6 % (0-5); LYMPHOCYTE ABS# 1.67 10x3/uL (1.18-3.74); MCH 27.3 pg (26.0-34.0); MCHC 30.7 g/dL (31.0-37.0); MEAN PLATELET VOLUME 9.1 fL (7.4-10.4); MONOCYTES 7.4 % (2-11); NEUTROPHIL ABS# 5.82 10x3/uL (1.56-6.13); NEUTROPHILS 69.8 % (40-80); PLATELET COUNT 442 10x3/uL (130-400); RBC 3.37 10x6/uL (4.00-5.40); RDW 16.4 % (11.5-14.5); WBC 8.3 10x3/uL (4.8-10.8)
[2020-11-26 09:40] LABS: ALBUMIN 2.5 g/dL (3.4-5.0); ALKALINE PHOSPHATASE 125 U/L (30-120); ALT (SGPT) 15 U/L (10-68); BILIRUBIN - TOTAL 0.26 mg/dL (0.2-1.3); CALC OSMOLALITY 272 mosm/kg (275-300); CALCIUM 9.6 mg/dL (8.5-10.1); CARBON DIOXIDE 34.6 mmol/L (21.0-32.0); CHLORIDE - SERUM 97 mmol/L (98-107); CREATININE - SERUM 0.7 mg/dL (0.6-1.3); GLUCOSE 143 mg/dL (74-106); POTASSIUM - SERUM 4.3 mmol/L (3.5-5.1); PROTEIN - SERUM 7.5 g/dL (6.4-8.2); SODIUM 135 mmol/L (136-145); UREA NITROGEN 14 mg/dL (7-18); eGFR NON AFRICAN AMERICAN 88 mL/min (90-120)
[2020-11-26 12:42] VITALS: BP 116/50
[2020-11-26 15:57] VITALS: BP 118/48
[2020-11-26 20:00] VITALS: BP 99/40
[2020-11-27 00:06] VITALS: BP 102/38
--- NOTE | 2020-11-27 01:51 | NUR ---
TUBE FEEDING SET UP CHANGED
[2020-11-27 05:03] VITALS: BP 123/48
--- NOTE | 2020-11-27 07:00 | NUR ---
PT LYING IN BED. RESP EVEN AND UNLABORED. AAOX4. PT IS ABLE TO COMMUNICATE WELL DESPITE HAVING TRACH. O2 VIA TRACH @ 6 LPM. PT DENIES NEEDS. CLIR. BED IN LOWEST POSITION. SIDE RAILS X2
[2020-11-27 08:00] VITALS: BP 135/50
--- NOTE | 2020-11-27 12:06 | MORECARE ---
CASE MANAGEMENT DISCHARGE SUMMARY PATIENT: CHON LUI UNIT: [id number] ADM DATE: 11/09/20 AGE: 70 : 50 SEX: F ROOM/BED: D.2101 AUTHOR: MONET,DOC PHYSICIAN: REFERRING PHYSICIAN: CHERELLE NAVARRETE MD DATE OF SERVICE: 11/27/20 Case Management Discharge Planning Summary COMMENTS ENTERED DATE: 11/27/20 11:55 CT COMMENT TYPE: Discharge Planning REVIEWER: Cassandra Ling CM spoke [facility] and they are just awaiting delivery of vest. Anticipate delivery within next 24-48 hrs. CM will continue to follow and assist as needed ENTERED DATE: 11/25/20 16:17 CT COMMENT TYPE: Discharge Planning REVIEWER: Maryse Moreno from [facility] states they did approve the cost of the AFLO vest for the patient. [facility] will need to measure her and order the Vest and instruct [facility] prior to discharge. ENTERED DATE: 11/25/20 13:10 CT COMMENT TYPE: Discharge Planning REVIEWER: Maryse Simpson CM CALLED [facility] AND THEY ARE UNABLE TO INSERVICE [facility] ON THE USE OF THE COUGH ASSIST DEVICE. I CALLED THE RT FROM [facility] (EDWARD) AND SHE TELLS ME THAT IT WOULD TAKE EXTENSIVE TRAINING ON THIS FOR THE FACILITY AND SHE RECOMMENDS AN AFLO VEST SINCE THE PATIENT IS ALREADY USING A VEST HERE AND TOLERATING (PER NURSE) IT WELL. I FAXED THE ORDER TO [facility] AND [facility] WILL F/U WITH THE FACILITY ON THIS AND GET THEM TRAINED. THE PATIENT WILL NEED TO BE FITTED WITH THE VEST PRIOR TO DISCHARGE. ENTERED DATE: 11/23/20 17:18 CT COMMENT TYPE: Discharge Planning REVIEWER: Maryse Simpson CM will contact Josh on Wednesday to see if teaching is complete for the Duval cough device and patient can dc to [facility] when stable. ENTERED DATE: 11/22/20 11:37 CT COMMENT TYPE: Discharge Planning REVIEWER: Maryse Simpson CM received an order for a cough assist device. I called [facility], they are using a percussion vest. I called Dr. Morillo and he voiced that a cough assist device would be preferable if facility can accommodate. I spoke with Josh at [facility] and they do not have either one. Josh asks that I order what Dr. Morillo requests from "any DME" and they would need training prior to her discharging back to [facility]. I called patient's daughter and her preference is [facility] or any DME that can supply need. I called [facility] and spoke with Braulio, they cannot get a percussion vest or cough assist device. I called [facility] and they can provide either device. They have the Duval cough assist device in stock and will call [facility] for contract and for teaching ( I spoke with Sandy). I faxed order and clinical to [facility]. ENTERED DATE: 11/22/20 9:25 CT COMMENT TYPE: Discharge Planning REVIEWER: Maryse Simpson CM called [facility] and spoke with Josh about a percussion vest or a Duval Cough assist device. She states they do not have one at their facility and will need to call corporate to see if they can get one for the [facility] residents and call me back. CM will continue to follow and assist with discharge planning/needs. ENTERED DATE: 11/21/20 23:33 CT COMMENT TYPE: Discharge Planning REVIEWER: Cassandra Ling CM received a consult from Dr. Morillo requesting Duval cough assist device. CM spoke with Marixa ext 85Yudi with resp therapy. She stated that she would speak with Ilia Mccain in am to see exactly what he is wanting for pt. She stated that she will let CM know what he wants so CM can follow through with request. ENTERED DATE: 11/13/20 10:22 CT COMMENT TYPE: Discharge Planning REVIEWER: Maryse Simpson UPDATES FAXED TO [facility]. DCP REVIEW SUMMARY ANTICIPATED D/C DATE: EXPECTED LOS : CASE STATUS: DCP Initiated INITIAL REVIEW: 11/09/2020 INITIAL REVIEWER: Cassandra Ling FINAL DISCHARGE DISPOSITION: : FINAL REVIEWER: FINAL REVIEW DATE: DCP Focus Questions & Answers QUESTION: ANSWER : PATIENT: CHON LUI ENCOUNTER: [id number] MEDICAL RECORD#: [id number] ADMISSION DATE: 11/09/2020 DISCHARGE DATE: ATTENDING MD: CHERELLE LOERA : AGE: 70 MARITAL STATUS: W DC PLAN ID: [id number] FACILITY: [facility] PRINTED ON: 11/27/20 12:05 CT All edits/amendments must be made on the electronic document DICTATION DATE: 11/27/201204 CAT DRIVER: NAHUN 11/27/20 120 RPT#: [id number] DC DATE: STATUS: ADM IN [facility] [address] [place] [address] END OF REPORT
[2020-11-27 13:12] LABS: FUNGUS CULTURE RESULT 1 Candida albicans (()); FUNGUS MYCOLOGY CULTURE Preliminary report (())
--- NOTE | 2020-11-27 19:15 | NUR ---
PT AWAKE, ASSESSMENT PER FLOW SHEET, 02 VIA TRACHE IS AT 6LPM, FEEDING PUMP BAG CHANGED OUT PER HI GUZMAN, LEFT CHEST INFUSAPORT SALINE LOCKED, PUREWICK IN PLACE, PT DENIES NEEDS OR PAIN AT THIS TIME, BED IN LOW POSITION, SIDE RAILS X 2, CALL LIGHT IN REACH
[2020-11-27 20:00] VITALS: BP 112/50
--- NOTE | 2020-11-27 22:10 | NUR ---
PT AWAKE, ADM 2100 MEDS PER MD ORDERS VIA PEG TUBE, PT DENIES NEEDS OR PAIN AT THIS TIME, BED IN LOW POSITION, SIDE RAILS X 2, CALL LIGHT IN REACH
--- NOTE | 2020-11-28 02:12 | NUR ---
PT LODGE SALES ASSOCIATE LIGHT, THIS RN AND KETURAH OLIVERA TO ROOM, PT HAD LARGE BROWN WATERY STOOL, PT CLEANED UP WITH WET WIPES, DRAW SHEET, CHUX, AND PURE WICK CHANGED, BUTT PASTE APPLIED, PT REPOSITIONED IN BED, PT DENIES FURTHER NEEDS OR PAIN AT THIS TIME, BED IN LOW POSITION, SIDE RAILS X 2, CALL LIGHT IN REACH
--- NOTE | 2020-11-28 04:31 | NUR ---
PT RESTING WITH EYES CLOSED, RESP QUIET, NO DISTRESS NOTED, LEFT UNDISTURBED AT THIS TIME, PUMPS CLEARED, BED IN LOW POSITION, SIDE RAILS X 2, CALL LIGHT IN REACH
[2020-11-28 08:23] VITALS: BP 114/45
--- NOTE | 2020-11-28 10:05 | NUR ---
MED ROUTE CHANGED TO PEG TUBE. AM MEDS GIVE, SEE EMAR. SCANNED AT THIS TIME BUT WHEN EMAR REOPENED, EVIDENCE OF SCAN MISSING. THIS IS WHY MEDS WERE SCANNED AT A LATER TIME.
[2020-11-28 15:11] VITALS: BP 92/37
--- NOTE | 2020-11-28 19:30 | NUR ---
PT IN BED, AAO X 3, RESP EVEN AND UNLABORED, NO DISTRESS NOTED, CL IN REACH, SR UP X 2.
[2020-11-28 22:48] VITALS: BP 114/55
[2020-11-29 01:00] VITALS: BP 131/53
[2020-11-29 04:00] VITALS: BP 1129/50
--- NOTE | 2020-11-29 04:22 | NUR ---
I have reviewed this patient and I concur with the Shift Assessment completed by the Licensed Practical Nurse today this shift.
[2020-11-29 08:00] VITALS: BP 118/52
--- NOTE | 2020-11-29 12:53 | NUR ---
Nutrition Follow-up: Per nursing, pt tolerating TF @ goal rate. Awaiting placement. Diet: Jevity 1.5 @ 40 mL/hr + H2O flushes 30 mL q hr No new wt; last wt: 115# (11/11) Last BM: 11/29 Labs noted (11/26): Na 135, Glu 143, Alb 2.5 Meds noted: Protonix, sodium chloride, Mylanta, Imodium, Lasix, electrolyte protocol -TF as tolerated. -Need new wt. -RD follow-up: 12/03
[2020-11-29] MEDS ORDERED: IPRAT-ALBUT 0.5-3 ML UPD (13:59)
[2020-11-29] MEDS ORDERED: BROVANA15 MCG/2 M INH (13:59)
[2020-11-29] MEDS ORDERED: LANOXIN125 MCG PEG (14:00)
[2020-11-29] MEDS ORDERED: CARDIZEM60 MG PEG (14:00)
[2020-11-29] MEDS ORDERED: ASPIRIN EC81 MG PO (14:01)
[2020-11-29] MEDS ORDERED: LASIX 40 M40 MG/5 ML PT (14:01)
[2020-11-29] MEDS ORDERED: RESTORIL7.5 MG PO (14:01)
[2020-11-29] MEDS ORDERED: THERMOTABS 1 GM1 GM PEG (14:02)
[2020-11-29] MEDS ORDERED: PROTONIX FOR OR40 MG PEG (14:04)
[2020-11-29] MEDS ORDERED: PROMOD LIQUID P30 M1 PEG (14:04)
[2020-11-29] MEDS ORDERED: IMODIUM2 MG PEG (14:04)
[2020-11-29] MEDS ORDERED: SYNTHROID175 MCG PEG (14:05)
[2020-11-29] MEDS ORDERED: MELATONIN5 MG PEG (14:05)
[2020-11-29] MEDS ORDERED: LOMOTIL 2.5-0.1 EAC1 PO (14:06)
[2020-11-29] MEDS ORDERED: MYLANTA / MAALO30 ML PEG (14:06)
[2020-11-29] MEDS ORDERED: ACIDOPHILUS-PE1 EACH PO (14:06)
[2020-11-29] MEDS ORDERED: MUCOMYST 20% INH (14:07)
[2020-11-29] MEDS ORDERED: PULMICORT0.5 MG/21 INH (14:07)
[2020-11-29] MEDS ORDERED: VISINE EACH EYE (14:07)
[2020-11-29] MEDS ORDERED: ROBITUSSIN DM 110 ML PEG (14:07)
--- NOTE | 2020-11-29 17:41 | NUR ---
REPORT CALLED TO RANDOLPH MIN LPN AT [facility], [facility] CALLED AND SAID WILL BE ABOUT AN HOUR.
[2020-11-29 21:52] VITALS: BP 157/79
[2020-11-29 21:53] VITALS: BP 113/40
--- NOTE | 2020-11-29 22:50 | NUR ---
[facility] HERE TO TRANSPORT PATIENT TO SNF.
--- NOTE | 2020-12-01 13:11 | MORECARE ---
CASE MANAGEMENT DISCHARGE SUMMARY PATIENT: CHON LUI UNIT: [id number] ADM DATE: 11/09/20 AGE: 70 : 50 SEX: F ROOM/BED: D.2101 AUTHOR: MONET,DOC PHYSICIAN: REFERRING PHYSICIAN: CHERELLE NAVARRETE MD DATE OF SERVICE: 12/01/20 Case Management Discharge Planning Summary COMMENTS ENTERED DATE: 11/27/20 11:55 CT COMMENT TYPE: Discharge Planning REVIEWER: Cassandra Ling CM spoke [facility] and they are just awaiting delivery of vest. Anticipate delivery within next 24-48 hrs. CM will continue to follow and assist as needed ENTERED DATE: 11/25/20 16:17 CT COMMENT TYPE: Discharge Planning REVIEWER: Maryse Moreno from [facility] states they did approve the cost of the AFLO vest for the patient. [place] will need to measure her and order the Vest and instruct [facility] prior to discharge. ENTERED DATE: 11/25/20 13:10 CT COMMENT TYPE: Discharge Planning REVIEWER: Maryse Simpson CM CALLED [facility] AND THEY ARE UNABLE TO INSERVICE [facility] ON THE USE OF THE COUGH ASSIST DEVICE. I CALLED THE RT FROM [facility] (EDWARD) AND SHE TELLS ME THAT IT WOULD TAKE EXTENSIVE TRAINING ON THIS FOR THE FACILITY AND SHE RECOMMENDS AN AFLO VEST SINCE THE PATIENT IS ALREADY USING A VEST HERE AND TOLERATING (PER NURSE) IT WELL. I FAXED THE ORDER TO [facility] AND [facility] WILL F/U WITH THE FACILITY ON THIS AND GET THEM TRAINED. THE PATIENT WILL NEED TO BE FITTED WITH THE VEST PRIOR TO DISCHARGE. ENTERED DATE: 11/23/20 17:18 CT COMMENT TYPE: Discharge Planning REVIEWER: Maryse Simpson CM will contact Josh on Wednesday to see if teaching is complete for the Duval cough device and patient can dc to [facility] when stable. ENTERED DATE: 11/22/20 11:37 CT COMMENT TYPE: Discharge Planning REVIEWER: Maryse Simpson CM received an order for a cough assist device. I called [facility], they are using a percussion vest. I called Dr. Morillo and he voiced that a cough assist device would be preferable if facility can accommodate. I spoke with Josh at [facility] and they do not have either one. Josh asks that I order what Dr. Morillo requests from "any DME" and they would need training prior to her discharging back to [facility]. I called patient's daughter and her preference is [facility] or any DME that can supply need. I called [facility] and spoke with Braulio, they cannot get a percussion vest or cough assist device. I called [facility] and they can provide either device. They have the Duval cough assist device in stock and will call [facility] for contract and for teaching ( I spoke with Sandy). I faxed order and clinical to [facility]. ENTERED DATE: 11/22/20 9:25 CT COMMENT TYPE: Discharge Planning REVIEWER: Maryse Simpson CM called [facility] and spoke with Josh about a percussion vest or a Duval Cough assist device. She states they do not have one at their facility and will need to call corporate to see if they can get one for the [facility] residents and call me back. CM will continue to follow and assist with discharge planning/needs. ENTERED DATE: 11/21/20 23:33 CT COMMENT TYPE: Discharge Planning REVIEWER: Cassandra Ling CM received a consult from Dr. Morillo requesting Duval cough assist device. CM spoke with Marixa ext 85Yudi with resp therapy. She stated that she would speak with Ilia Mccain in am to see exactly what he is wanting for pt. She stated that she will let CM know what he wants so CM can follow through with request. ENTERED DATE: 11/13/20 10:22 CT COMMENT TYPE: Discharge Planning REVIEWER: Maryse Simpson UPDATES FAXED TO [facility]. DCP REVIEW SUMMARY ANTICIPATED D/C DATE: EXPECTED LOS : CASE STATUS: DCP Initiated INITIAL REVIEW: 11/09/2020 INITIAL REVIEWER: Cassandra Ling FINAL DISCHARGE DISPOSITION: : FINAL REVIEWER: FINAL REVIEW DATE: DCP Focus Questions & Answers QUESTION: ANSWER : PATIENT: CHON LUI ENCOUNTER: [id number] MEDICAL RECORD#: [id number] ADMISSION DATE: 11/09/2020 DISCHARGE DATE: 11/29/2020 ATTENDING MD: CHERELLE LOERA : AGE: 70 MARITAL STATUS: W DC PLAN ID: [id number] FACILITY: [facility] PRINTED ON: 12/01/20 13:11 CT All edits/amendments must be made on the electronic document DICTATION DATE: 12/01/20 131 TRANSMISSION SPECIALIST: NAHUN 12/01/20 1311 RPT#: [id number] DC DATE:11/29/20 STATUS: DIS IN [facility] [address] [place] [address] END OF REPORT
--- NOTE | 2020-12-02 13:18 | MORECARE ---
CASE MANAGEMENT DISCHARGE SUMMARY PATIENT: CHON LUI UNIT: [id number] ADM DATE: 11/09/20 AGE: 70 : 50 SEX: F ROOM/BED: D.2101 AUTHOR: MONET,DOC PHYSICIAN: REFERRING PHYSICIAN: CHERELLE NAVARRETE MD DATE OF SERVICE: 12/02/20 Case Management Discharge Planning Summary COMMENTS ENTERED DATE: 11/27/20 11:55 CT COMMENT TYPE: Discharge Planning REVIEWER: Cassandra Ling CM spoke [facility] and they are just awaiting delivery of vest. Anticipate delivery within next 24-48 hrs. CM will continue to follow and assist as needed ENTERED DATE: 11/25/20 16:17 CT COMMENT TYPE: Discharge Planning REVIEWER: Maryse Moreno from [facility] states they did approve the cost of the AFLO vest for the patient. Cameron will need to measure her and order the Vest and instruct [facility] prior to discharge. ENTERED DATE: 11/25/20 13:10 CT COMMENT TYPE: Discharge Planning REVIEWER: Maryse Simpson CM CALLED [facility] AND THEY ARE UNABLE TO INSERVICE [facility] ON THE USE OF THE COUGH ASSIST DEVICE. I CALLED THE RT FROM [facility] (EDWARD) AND SHE TELLS ME THAT IT WOULD TAKE EXTENSIVE TRAINING ON THIS FOR THE FACILITY AND SHE RECOMMENDS AN AFLO VEST SINCE THE PATIENT IS ALREADY USING A VEST HERE AND TOLERATING (PER NURSE) IT WELL. I FAXED THE ORDER TO [facility] AND EDWARD WILL F/U WITH THE FACILITY ON THIS AND GET THEM TRAINED. THE PATIENT WILL NEED TO BE FITTED WITH THE VEST PRIOR TO DISCHARGE. ENTERED DATE: 11/23/20 17:18 CT COMMENT TYPE: Discharge Planning REVIEWER: Maryse Simpson CM will contact Josh on Wednesday to see if teaching is complete for the Duval cough device and patient can dc to [facility] when stable. ENTERED DATE: 11/22/20 11:37 CT COMMENT TYPE: Discharge Planning REVIEWER: Maryse Simpson CM received an order for a cough assist device. I called [facility], they are using a percussion vest. I called Dr. Morillo and he voiced that a cough assist device would be preferable if facility can accommodate. I spoke with Josh at [facility] and they do not have either one. Josh asks that I order what Dr. Morillo requests from "any DME" and they would need training prior to her discharging back to [facility]. I called patient's daughter and her preference is [facility] or any DME that can supply need. I called [facility] and spoke with Braulio, they cannot get a percussion vest or cough assist device. I called [facility] and they can provide either device. They have the Duval cough assist device in stock and will call [facility] for contract and for teaching ( I spoke with Sandy). I faxed order and clinical to [facility]. ENTERED DATE: 11/22/20 9:25 CT COMMENT TYPE: Discharge Planning REVIEWER: Maryse Simpson CM called [facility] and spoke with Josh about a percussion vest or a Duval Cough assist device. She states they do not have one at their facility and will need to call corporate to see if they can get one for the [facility] residents and call me back. CM will continue to follow and assist with discharge planning/needs. ENTERED DATE: 11/21/20 23:33 CT COMMENT TYPE: Discharge Planning REVIEWER: Cassandra Ling CM received a consult from Dr. Morillo requesting Duval cough assist device. CM spoke with Marixa ext [id number] with resp therapy. She stated that she would speak with Ilia Mccain in am to see exactly what he is wanting for pt. She stated that she will let CM know what he wants so CM can follow through with request. ENTERED DATE: 11/13/20 10:22 CT COMMENT TYPE: Discharge Planning REVIEWER: Maryse Simpson UPDATES FAXED TO [facility]. DCP REVIEW SUMMARY ANTICIPATED D/C DATE: EXPECTED LOS : CASE STATUS: DCP Initiated INITIAL REVIEW: 11/09/2020 INITIAL REVIEWER: Cassandra Ling FINAL DISCHARGE DISPOSITION: : FINAL REVIEWER: FINAL REVIEW DATE: DCP Focus Questions & Answers QUESTION: ANSWER : PATIENT: CHON LUI ENCOUNTER: [id number] MEDICAL RECORD#: [id number] ADMISSION DATE: 11/09/2020 DISCHARGE DATE: 11/29/2020 ATTENDING MD: CHERELLE LOERA : AGE: 70 MARITAL STATUS: W DC PLAN ID: [id number] FACILITY: [facility] PRINTED ON: 12/02/20 13:18 CT All edits/amendments must be made on the electronic document DICTATION DATE: 12/02/20 1318 AMERICAN HISTORY TEACHER: NAHUN 12/02/20 1318 RPT#: [id number] DC DATE:11/29/20 STATUS: DIS IN [facility] [address] [place] [address] END OF REPORT
== END 2020-11-29 22:51 | DRG 981 ==
LOC: D.ER 15:53 → D.M2 16:53
PROVIDERS: Emergency Medicine; Family Medicine; Internal Medicine Pulmonary Disease; Surgery; ADMIT Legal Medicine; ATTEND Legal Medicine
PROC: 0BDF8ZX Extraction of Right Lower Lung Lobe, Via Natural or Artificial Opening Endoscopic, Diagnostic (ICD-10-PCS; principal; 2020-11-13 11:00)
PROC: 0DB60ZZ Excision of Stomach, Open Approach (ICD-10-PCS; 2020-11-15 12:30)
PROC: 0DH60UZ Insertion of Feeding Device into Stomach, Open Approach (ICD-10-PCS; 2020-11-15 12:30)
PROC: 0B9J8ZX Drainage of Left Lower Lung Lobe, Via Natural or Artificial Opening Endoscopic, Diagnostic (ICD-10-PCS; 2020-11-20)
PROC: 0B9F8ZX Drainage of Right Lower Lung Lobe, Via Natural or Artificial Opening Endoscopic, Diagnostic (ICD-10-PCS; 2020-11-20)
DX: J15.6 Pneumonia due to other Gram-negative bacteria (principal); J96.21 Acute and chronic respiratory failure with hypoxia; J44.0 Chronic obstructive pulmonary disease with (acute) lower respiratory infection; I50.32 Chronic diastolic (congestive) heart failure; K31.6 Fistula of stomach and duodenum; K94.23 Gastrostomy malfunction; Z20.822 Contact with and (suspected) exposure to COVID-19; I11.0 Hypertensive heart disease with heart failure; K21.9 Gastro-esophageal reflux disease without esophagitis; F32.9 Major depressive disorder, single episode, unspecified; D50.9 Iron deficiency anemia, unspecified; E03.9 Hypothyroidism, unspecified; I48.91 Unspecified atrial fibrillation; Y84.9 Medical procedure, unspecified as the cause of abnormal reaction of the patient, or of later complication, without mention of misadventure at the time of the procedure

== ENCOUNTER 2020-11-30 03:56 | Inpatient (IN) | payer MEDICARE ==
[2020-11-30] VITALS (7 sets, daily range): BP systolic 102–153; BP diastolic 47–66; Ht 160 cm; Wt 50.0 kg
[~2020-11-30] VITALS: Ht 160 cm; Wt 50.0 kg
[~2020-11-30 03:56] MED LIST changes: +ASPIRIN EC81 MG PO; +CARDIZEM60 MG PEG; +LANOXIN125 MCG PEG; +MUCOMYST 20% INH; +ROBITUSSIN DM 110 ML PEG; +VISINE EACH EYE
[2020-11-30 04:44] LABS: BASOPHILS 0.1 % (0-2); EOSINOPHILS 0 % (0-7); HEMATOCRIT 31.7 % (36.0-48.0); HEMOGLOBIN 9.9 g/dL (12-16); IMMATURE GRANULOCYTES 0.2 % (0-5); LYMPHOCYTE ABS# 0.94 10x3/uL (1.18-3.74); LYMPHOCYTES 5.8 % (15-50); MCH 27.8 pg (26.0-34.0); MCHC 31.2 g/dL (31.0-37.0); MEAN PLATELET VOLUME 8.7 fL (7.4-10.4); MONOCYTES 3.9 % (2-11); NEUTROPHIL ABS# 14.61 10x3/uL (1.56-6.13); PLATELET COUNT 391 10x3/uL (130-400); RBC 3.56 10x6/uL (4.00-5.40); RDW 16.7 % (11.5-14.5); WBC 16.3 10x3/uL (4.8-10.8)
[2020-11-30 04:54] LABS: CALC OSMOLALITY 275 mosm/kg (275-300); CALCIUM 9.5 mg/dL (8.5-10.1); CARBON DIOXIDE 31.3 mmol/L (21.0-32.0); CHLORIDE - SERUM 98 mmol/L (98-107); CREATININE - SERUM 0.8 mg/dL (0.6-1.3); GLUCOSE 179 mg/dL (74-106); SODIUM 135 mmol/L (136-145); UREA NITROGEN 18 mg/dL (7-18); eGFR NON AFRICAN AMERICAN 75 mL/min (90-120)
[2020-11-30 05:00] LABS: ALBUMIN 2.8 g/dL (3.4-5.0); ALKALINE PHOSPHATASE 105 U/L (30-120); ALT (SGPT) 12 U/L (10-68); PROTEIN - SERUM 8.3 g/dL (6.4-8.2)
--- NOTE | 2020-11-30 07:45 | NUR ---
PT ADMIT ASSESSMENT COMPLETE. SEE FLOWSHEET. RESP FOR TRACH CARE/ O2 MANAGEMENT. PUREWICK IN PLACE FOR URINATION. CL IN REACH. WCTM
[2020-11-30 13:31] LABS: T4 THYROXIN - FREE 1.54 ng/dL (0.76-1.46); THYROID STIMULATING HORMONE 0.38 uIU/mL (0.36-3.74)
--- NOTE | 2020-11-30 14:36 | NUR ---
PT RESTING ON LEFT SIDE. DENIES ANY NEEDS. CL IN REACH. WCTM
--- NOTE | 2020-11-30 16:53 | NUR ---
PT CLEANED UP. PUREWICK REPLACED. CL IN REACH. NO FURTHER NEEDS AT THIS TIME. WCTM
[2020-12-01] VITALS: BP 110/50
[2020-12-01 04:00] VITALS: BP 98/50
[2020-12-01 07:25] LABS: BASOPHILS 0.2 % (0-2); EOSINOPHILS 0.3 % (0-7); IMMATURE GRANULOCYTES 0.3 % (0-5); LYMPHOCYTE ABS# 1.16 10x3/uL (1.18-3.74); LYMPHOCYTES 11.3 % (15-50); MCH 27.2 pg (26.0-34.0); MCV 90.6 fL (80.0-100.0); MEAN PLATELET VOLUME 9.3 fL (7.4-10.4); MONOCYTES 5.9 % (2-11); NEUTROPHIL ABS# 8.39 10x3/uL (1.56-6.13); PLATELET COUNT 321 10x3/uL (130-400); RBC 2.87 10x6/uL (4.00-5.40); RDW 16.7 % (11.5-14.5)
[2020-12-01 07:26] LABS: CALC OSMOLALITY 282 mosm/kg (275-300); CALCIUM 9.1 mg/dL (8.5-10.1); CARBON DIOXIDE 29.5 mmol/L (21.0-32.0); CHLORIDE - SERUM 103 mmol/L (98-107); CREATININE - SERUM 0.6 mg/dL (0.6-1.3); GLUCOSE 95 mg/dL (74-106); HEMOGLOBIN 7.8 g/dL (12-16); MAGNESIUM - SERUM 1.9 mg/dL (1.8-2.4); PHOSPHOROUS 2.9 mg/dL (2.5-4.9); POTASSIUM - SERUM 3.7 mmol/L (3.5-5.1); SODIUM 141 mmol/L (136-145); UREA NITROGEN 19 mg/dL (7-18); WBC 10.2 10x3/uL (4.8-10.8); eGFR NON AFRICAN AMERICAN > 90 mL/min (90-120)
--- NOTE | 2020-12-01 07:30 | NUR ---
PT ALERT AND ORIENTED. CL IN REACH. SCD'S ON. PUREWICK IN PROPER PLACEMENT. NO NEEDS AT THIS TIME. WCTM
[2020-12-01 10:07] VITALS: BP 103/46
--- NOTE | 2020-12-01 12:30 | NUR ---
PT CO OF PAIN. TREATED PER EMAR. CL IN REACH. NO FURTHER NEEDS AT THIS TIME. WCTM
[2020-12-01 14:15] VITALS: BP 103/53
--- NOTE | 2020-12-01 16:34 | NUR ---
PT RESTING. HOB AT 30. PUREWICK IN PROPER PLACEMENT. NO NEEDS AT THIS TIME. CL IN REACH. WCTM
[2020-12-01 18:03] VITALS: BP 108/45
[2020-12-01 20:00] VITALS: BP 98/36
[2020-12-02] VITALS: BP 115/46
--- NOTE | 2020-12-02 05:00 | NUR ---
RESIDUAL AT 0100 WAS 60+ MLS. DECREASED FEEDING RATE FROM 40 TO 20 ML/HR. HEAD OF BED AT 35 DEGREES. DECREASED RATE AGAIN TO 10 AT 0200. RESIDUAL 240+ MLS AT 0500 - TURNED TUBE FEEDING OFF.
[2020-12-02 08:35] VITALS: BP 140/92
[2020-12-02 12:52] VITALS: BP 132/89
--- NOTE | 2020-12-02 14:33 | NUR ---
Nutrition Follow Up: Patient receiving Jevity 1.5 via PEG tube and running at goal rate of 40 cc/hr. Patient meeting 100% of kcal and protein needs from TF. TF @ 40 cc/hr provides: 1440 kcal and 61 g protein BM x 1 on 12/02 SIG MEDS: Protonix, Lovenox, Zofran, Synthroid, Probiotic, NS @ 50 cc/hr SIG LABS: BUN-19(H), Albumin-2.8(L) RECOMMENDATIONS: -Continue Jevity 1.5 via PEG @ goal rate of 40 cc/hr -Water flushes @ 30 cc/hr or per MD -Elevate Head of Bed -Okay to hold TF if residuals become >[address] to follow up on 12/04
[2020-12-02 17:23] VITALS: BP 135/60
--- NOTE | 2020-12-02 19:45 | NUR ---
RECEIVED BEDSIDE REPORT. PT LAYING IN BED A&O X4. PIV TO LEFT HAND PATENT AND INFUSING, NO REDNESS OR SWELLING. TRACH IN PLACE, COLLAR IN PLACE 30%. PUREWICK IN PLACE, DRAINING TO SUCTION. TELEMETRY IN PLACE, SR 80S. PEG TUBE TO MID ABD, CONTINUOUS. EDUCATED PT ON CL AND NEEDS, VERBALIZED UNDERSTANDING. BED LOW, ALARM ON, CL IN REACH.
[2020-12-02 20:00] VITALS: BP 112/76
--- NOTE | 2020-12-02 21:01 | NUR ---
SUCTIONED PT, TOLERATED WELL, NO S/S OF DISTRESS. BED LOW, ALARM ON, CL IN REACH.
[2020-12-03 04:00] VITALS: BP 100/51
--- NOTE | 2020-12-03 08:00 | NUR ---
PATIENT IN BED WITH IV INTACT. NO COMPLAINTS OR SIGNS OF DISTRESS. TRACH COLLAR ON. CALL LIGHT WITHIN REACH.
[2020-12-03 08:52] VITALS: BP 108/62
--- NOTE | 2020-12-03 09:45 | NUR ---
DEEP SUCTIONED PATIENT AT THIS TIME PER REQUEST.
--- NOTE | 2020-12-03 10:45 | NUR ---
PATIENT IV RED AND HURTING. REMOVED WITH CATH TIP INTACT. ACCESSED INFUSAPORT. OK'D BY DR. NAVARRETE FIRST. RESTARTED IVF AND ABX. TRACH COLLAR ON. CALL LIGHT WITHIN REACH.
--- NOTE | 2020-12-03 13:00 | NUR ---
PATIENT DEEP SUCTIONED AT THIS TIME PER REQUEST.
[2020-12-03 13:07] VITALS: BP 118/66
[2020-12-03 16:53] VITALS: BP 137/65
--- NOTE | 2020-12-03 18:30 | NUR ---
PATIENT IN BED. RT AT BEDSIDE. NO COMPLAINTS OR SIGNS OF DISTRESS. IV INTACT. CALL LIGHT WITHIN REACH.
[2020-12-03 20:00] VITALS: BP 150/79
--- NOTE | 2020-12-04 02:42 | NUR ---
I have reviewed this patient and I concur with the Shift Assessment completed by the Licensed Practical Nurse today this shift.
[2020-12-04 04:00] VITALS: BP 130/57
[2020-12-04 08:29] VITALS: BP 114/54
[2020-12-04 10:14] LABS: ALKALINE PHOSPHATASE 96 U/L (30-120); ALT (SGPT) 9 U/L (10-68); BILIRUBIN - TOTAL 0.16 mg/dL (0.2-1.3); CALC OSMOLALITY 279 mosm/kg (275-300); CALCIUM 8.4 mg/dL (8.5-10.1); CARBON DIOXIDE 30.9 mmol/L (21.0-32.0); CHLORIDE - SERUM 103 mmol/L (98-107); CREATININE - SERUM 0.6 mg/dL (0.6-1.3); POTASSIUM - SERUM 3.3 mmol/L (3.5-5.1); PROTEIN - SERUM 6.7 g/dL (6.4-8.2); SODIUM 140 mmol/L (136-145); UREA NITROGEN 7 mg/dL (7-18); eGFR NON AFRICAN AMERICAN > 90 mL/min (90-120)
[2020-12-04 10:15] LABS: GLUCOSE 144 mg/dL (74-106)
[2020-12-04 11:12] LABS: BASOPHILS 0.2 % (0-2); EOSINOPHILS 1.5 % (0-7); HEMATOCRIT 31.1 % (36.0-48.0); HEMOGLOBIN 9.4 g/dL (12-16); IMMATURE GRANULOCYTES 0.2 % (0-5); LYMPHOCYTE ABS# 1.14 10x3/uL (1.18-3.74); LYMPHOCYTES 18.7 % (15-50); MCH 27.4 pg (26.0-34.0); MCHC 30.2 g/dL (31.0-37.0); MCV 90.7 fL (80.0-100.0); MEAN PLATELET VOLUME 9.4 fL (7.4-10.4); MONOCYTES 10.3 % (2-11); NEUTROPHIL ABS# 4.21 10x3/uL (1.56-6.13); NEUTROPHILS 69.1 % (40-80); PLATELET COUNT 333 10x3/uL (130-400); RBC 3.43 10x6/uL (4.00-5.40); RDW 15.9 % (11.5-14.5); WBC 6.1 10x3/uL (4.8-10.8)
[2020-12-04 12:04] VITALS: BP 135/84
--- NOTE | 2020-12-04 15:28 | NUR ---
Nutrition Follow-up: TF order via J-PEG: Jevity 1.5 @ 40mL/hr. Tolerating. - This provides: 1440 kcal and 61gms protein and meets 100% of estimated needs Last BM: 12/03/20 Wt: 115# (11/30/20), no new weight Meds noted: probiotics, abx, NS@50 Labs noted: K 3.3(L), Glu 144(H), Alb 2.0(L) Recommend continue current TF at goal rate. RD will follow-up 12/06/20.
[2020-12-04 17:50] VITALS: BP 115/72
[2020-12-04 20:00] VITALS: BP 126/62
[2020-12-05 04:00] VITALS: BP 140/65; BP 144/65
--- NOTE | 2020-12-05 07:10 | NUR ---
PT IS RESTING IN BED WITH EYES CLOSED. RESPIRATIONS ARE EVEN AND UNLABORED. TRACH COLLAR ON @ 30. PT IS EASILY AROUSED WITH VERBAL STIMULATION AND IS AAOX 4 UPON AROUSAL. PT ANSWERS ALL QUESTIONS APPROPRIATLEY. PUREWICK IN PLACE. PEG TUBE INPLACE WITH TUBE FEEDS AT 30/HR WITH H2O FLUSH WITH 40 Q [address] PRECAUTIONS IN PLACE AND FOLLOWED. FLUID INFUSING TO LEFT CHEST PORT WITHOUT DIFFICULTY. PER ORDER. PORT DRESSING CHANGED ON 12/04/20. SCDS ARE ON BLE. INCENTIVE SPIROMETER AT BEDSIDE AND ENCOURAGED. PT VERBALIZES UNDERSTANDING. BED IS IN THE LOWEST POSITION. CALL LIGHT AND BEDSIDE TABLE ARE WITHIN REACH. SIDE RAILS X 2. PT DENIES FURTHER NEEDS. WILL CONT TO MONITOR.
[2020-12-05 09:12] VITALS: BP 118/63
[2020-12-05 13:46] VITALS: BP 116/64
--- NOTE | 2020-12-05 13:53 | NUR ---
COMPLETE LINEN CHANGE. PUREWICK CHANGED. PT NEEDING MINIMAL ASSISTANCE WITH ROLLING IN THE BED. OT AT BEDSIDE AND ASSISTED WITH COMPLETE LINEN CHANGE. IV INFUSING TO LEFT PORT WITHOUT DIFFICULTY. TRACH COLLAR IN PLACE @ 30%. HOB AT 45 DEGREES. PUREWICK IN CORRECT POSITION AND SET TO SUCTION. BED IS IN THE LOWEST POSITION. CALL LIGHT AND BEDSIDE TABLE ARE WITHIN REACH. SIDE RAILS X 2. DROPLET ISOLATION PRECAUTIONS FOLLOWED. PT DENIES FURTHER NEEDS. WILL CONT TO MONITOR.
[2020-12-05 17:33] VITALS: BP 121/53
--- NOTE | 2020-12-06 02:47 | NUR ---
ASSESSED AT THE BEGINNING OF THE SHIFT. PT IS ALERT AND ORIENTED, ABLE TO USE CALL LIGHT AND INDICATE HER NEEDS. HE DOWES HAVE A TRACH COLLAR AND HAS JEVITY 1.5 INFUSING AT 40 CC'S AN HOUR. WE TRIED A PURE WICK BUT HAVE HAD TO CHANGE THE BED REPEATEDLY.HE TELEMETRY IS SHOWING HER TO BE SR 90'S.THE HOB IS REMAINING UP 30DEGREES OR BAETTER AND SHE HAS BEEN RESTAING WELL.
--- NOTE | 2020-12-06 07:48 | NUR ---
ALERT AND ORIENTED. ASSESSMENT COMPLETE. DENIES NEEDS. BED LOW. CALL COBB AND PERSONAL ITEMS IN REACH. WILL CONTINUE TO MONITOR.
[2020-12-06 10:42] VITALS: BP 117/57
--- NOTE | 2020-12-06 12:16 | NUR ---
DEEP SUCTION PERFORMED PER PATIENT REQUEST.
[2020-12-06 13:29] VITALS: BP 126/70
--- NOTE | 2020-12-06 14:37 | NUR ---
OT NOTE: PT COMPLETED BED MOB TASKS WITH MIN A FOR SIDE ROLLING. PT REQUIRED MAX A FOR LB HYGIENE TASKS. PT REQUIRED MAX A FOR UPWARD POSITIONING IN BED. PT REQUESTED SUCTION AND PURWICK NEEDS REPLACED. NURSING NOTIFIED. [phone] KENNETH CHANCE COTA
--- NOTE | 2020-12-06 14:50 | NUR ---
Nutrition Follow-up TF order: Jevity 1.5 @ 40mL/hr via J-PEG. Tolerating. - This provides: 1440kcal and 62gms protein and meets 100% of estimated needs Last BM: Wt: 115# (11/30/20), no new weight Meds noted: abx, NaCl, probiotics, NS@50 Labs reviewed Recommend continue current TF at goal rate. RD will follow-up 12/09/20
[2020-12-06 17:41] VITALS: BP 126/81
[2020-12-06 20:35] VITALS: BP 144/52
--- NOTE | 2020-12-06 20:35 | NUR ---
SUCTIONED TRACH. MODERATE AMOUNT YELLOWISH MUCOUS SUCTIONED. BROUGHT PT EXTRA BLANKET. WILL CONTINUE TO MONITOR.
--- NOTE | 2020-12-06 23:39 | NUR ---
I have reviewed this patient and I concur with the Shift Assessment completed by the Licensed Practical Nurse today this shift.
[2020-12-07 05:53] VITALS: BP 137/71
--- NOTE | 2020-12-07 07:36 | NUR ---
IN BED RESTING. AROUSES TO VOICE. BED LOW POSITION, CALL LIGHT IN REACH. WILL CONTINUE TO MONITOR.
[2020-12-07 08:52] VITALS: BP 105/49
[2020-12-07 11:45] VITALS: BP 104/49
--- NOTE | 2020-12-07 15:30 | NUR ---
SUCTIONED PATIENT. PATIENT NODS THAT SHE FEELS BETTER. WILL CONTINUE TO MONITOR.
--- NOTE | 2020-12-07 15:36 | NUR ---
PATIENT HAD A BOWEL ACCIDENT. CLEANED UP, PLACED NEW PURWICK. BED LOW POSITION, CALL LIGHT IN REACH. WILL CONTINUE TO MONITOR.
[2020-12-07 16:50] VITALS: BP 121/67
[2020-12-07 21:16] VITALS: BP 140/47
--- NOTE | 2020-12-07 22:00 | NUR ---
WATCHING TV QUEITLY. NO DISTRESS NOTED. O2 @ 5L PER TRACH COLLAR. SUCTIONED PER RESPIRATORY THERAPHY. GTUBE PATENT WITH OSMOLITE 1.5 INFUSING AT 40 CC/HR. CL IN REACH
--- NOTE | 2020-12-08 00:38 | NUR ---
I have reviewed this patient and I concur with the Shift Assessment completed by the Licensed Practical Nurse today this shift.
[2020-12-08 09:20] LABS: BASOPHILS 0.3 % (0-2); EOSINOPHILS 5.1 % (0-7); HEMATOCRIT 31.6 % (36.0-48.0); HEMOGLOBIN 9.5 g/dL (12-16); IMMATURE GRANULOCYTES 1.1 % (0-5); LYMPHOCYTE ABS# 1.73 10x3/uL (1.18-3.74); LYMPHOCYTES 27.7 % (15-50); MCH 27.1 pg (26.0-34.0); MCHC 30.1 g/dL (31.0-37.0); MEAN PLATELET VOLUME 9.1 fL (7.4-10.4); NEUTROPHIL ABS# 3.61 10x3/uL (1.56-6.13); NEUTROPHILS 57.8 % (40-80); PLATELET COUNT 368 10x3/uL (130-400); RBC 3.51 10x6/uL (4.00-5.40); WBC 6.3 10x3/uL (4.8-10.8)
[2020-12-08 09:40] LABS: CALC OSMOLALITY 272 mosm/kg (275-300); CALCIUM 8.9 mg/dL (8.5-10.1); CHLORIDE - SERUM 100 mmol/L (98-107); CREATININE - SERUM 0.5 mg/dL (0.6-1.3); GLUCOSE 99 mg/dL (74-106); POTASSIUM - SERUM 4.3 mmol/L (3.5-5.1); SODIUM 137 mmol/L (136-145); UREA NITROGEN 10 mg/dL (7-18); VANCOMYCIN - TROUGH 20.7 ug/mL (10.0-20.0); eGFR NON AFRICAN AMERICAN > 90 mL/min (90-120)
[2020-12-08 10:56] VITALS: BP 132/55
[2020-12-08 14:36] VITALS: BP 118/45
[2020-12-08 17:43] VITALS: BP 115/51
[2020-12-09 09:07] VITALS: BP 116/44
--- NOTE | 2020-12-09 13:32 | NUR ---
Nutrition reassessment: Dx: aspiration pneumonia Ht: 5'3" Wt: 114# Labs reviewed Meds reviewed Osmolite 1.5 mary infusing via PEG tube @ 40 ml/hr Pt with trach in place +BM Nutritional needs remain the same as initial assessment on 11/30/20. Nutrition diagnosis: Inadequate oral intake R/T trach with PEG tube placement AEB pt with aspiration pneumonia from secretions. Nutrition goals: - TF tolerance of Osmolite 1.5 mary @ 40 ml/hr - Meet 100% of estimate fluid needs - Stable wt Interventions: Osmolite 1.5 mary @ 40 ml/hr is meeting 100% of estimated nutritional needs at this time. Pt currently meeting nutrition goals. RDN follow-up: 12/13/20
[2020-12-09 14:20] VITALS: BP 112/52
--- NOTE | 2020-12-09 15:43 | NUR ---
OT NOTE: PT COMPLETED SUPINE TO SIT WITH MIN A. PT COMPLETED EOB SITTING ENDURANCE WITH CGA. PT REQUIRED MAX A FOR POSITIONING UP IN BED. PT REQUIRED MAX A FOR LB HYGIENE TASKS. [phone] KENNETH CHANCE COTA
[2020-12-09 17:00] VITALS: BP 105/49
[2020-12-09 20:00] VITALS: BP 124/51
--- NOTE | 2020-12-09 23:32 | NUR ---
Assumed care of pt after report/rounds. Pt did c/o back pain initially on assessment. PRN pain med was given and effective for pain/discomfort. Pt lying in bed with O2 to trach. No SOB or dyspnea but, there remains crackles/rales to BUL's. Pt has signinifcant difficulty trying to perform tasks of I.S. use and rarely meets 200. Peg tube placed appropriately and 5cc residual on checks so far this night. Pt is in bed resting at this time.
[2020-12-10 04:00] VITALS: BP 118/48
--- NOTE | 2020-12-10 04:43 | NUR ---
Late entry - Pt did revert to SR for tele after taking scheduled Cardizem.
[2020-12-10 09:03] VITALS: BP 133/55
[2020-12-10 14:12] VITALS: BP 126/62
--- NOTE | 2020-12-10 15:49 | NUR ---
OT NOTE: PT COMPLETED SUPINE TO SIT WITH MOD A. PT COMPLETED EOB SITTING WITH MIN A. PT IS EASILY FATIGUED. PT COMPLETED SIMPLE FACE HYGIENE WITH MIN A. PT REQUIRED TOTAL A FOR POSITIONING IN BED. NURSING AWARE. [phone] KENNETH CHANCE COTA
[2020-12-10 17:56] VITALS: BP 151/65
[2020-12-10 20:00] VITALS: BP 112/46
[2020-12-11 04:00] VITALS: BP 107/42
--- NOTE | 2020-12-11 04:23 | NUR ---
PATIENT HAD PAIN MANAGED WITH THE PRESCRIBED PAIN MEDICATION, SHE HAS HAD HER TUBE FEED TUBING CHANGED, SHE IS CURRENTLY RESTING IN BED,
--- NOTE | 2020-12-11 07:00 | NUR ---
BED LOW POSITION, CALL LIGHT IN REACH. AROUSES TO VOICE. DENIES NEEDS. WILL CONTINUE TO MONTIOR.
[2020-12-11 07:23] LABS: ALBUMIN 2.7 g/dL (3.4-5.0); ALKALINE PHOSPHATASE 151 U/L (30-120); ALT (SGPT) 30 U/L (10-68); BILIRUBIN - TOTAL 0.19 mg/dL (0.2-1.3); CALC OSMOLALITY 268 mosm/kg (275-300); CALCIUM 9.5 mg/dL (8.5-10.1); CHLORIDE - SERUM 98 mmol/L (98-107); CREATININE - SERUM 0.4 mg/dL (0.6-1.3); GLUCOSE 124 mg/dL (74-106); POTASSIUM - SERUM 4.6 mmol/L (3.5-5.1); PROTEIN - SERUM 7.5 g/dL (6.4-8.2); SODIUM 134 mmol/L (136-145); UREA NITROGEN 13 mg/dL (7-18); eGFR NON AFRICAN AMERICAN > 90 mL/min (90-120)
[2020-12-11 08:14] LABS: BASOPHILS 0.2 % (0-2); EOSINOPHILS 1.5 % (0-7); HEMATOCRIT 31.6 % (36.0-48.0); HEMOGLOBIN 9.9 g/dL (12-16); IMMATURE GRANULOCYTES 0.3 % (0-5); LYMPHOCYTE ABS# 1.96 10x3/uL (1.18-3.74); LYMPHOCYTES 15.1 % (15-50); MCH 27.9 pg (26.0-34.0); MCHC 31.3 g/dL (31.0-37.0); MEAN PLATELET VOLUME 9.3 fL (7.4-10.4); MONOCYTES 4.6 % (2-11); NEUTROPHIL ABS# 10.15 10x3/uL (1.56-6.13); NEUTROPHILS 78.3 % (40-80); PLATELET COUNT 430 10x3/uL (130-400); RBC 3.55 10x6/uL (4.00-5.40); RDW 15.9 % (11.5-14.5)
[2020-12-11 09:23] VITALS: BP 119/40
[2020-12-11 13:28] VITALS: BP 109/61
--- NOTE | 2020-12-11 15:21 | NUR ---
OT NOTE: PT REFUSED IN AM. PT REPORTED THAT SHE WOULD TRY IN THE AFTERNOON IF SHE WAS FEELING BETTER. BRIAN BYRNE, OTR/L
[2020-12-11 17:47] VITALS: BP 131/53
[2020-12-11 20:00] VITALS: BP 112/54
--- NOTE | 2020-12-12 02:52 | NUR ---
PATIENT HAS SLEPT WELL, SHE HAS SCD'S ON, PURE WICK CATHETER IN PLACE, SHE IS CURRENTLY RESTING IN BED WITH HER EYES CLOSED.
[2020-12-12 04:00] VITALS: BP 144/54
--- NOTE | 2020-12-12 07:45 | NUR ---
IN BED, AROUSES TO VOICE. BED LOW POSITION, CALL LIGHT IN REACH. WILL CONTINUE TO MONITOR.
[2020-12-12 08:27] VITALS: BP 140/65
[2020-12-12 12:43] VITALS: BP 142/64
--- NOTE | 2020-12-12 17:05 | NUR ---
OT NOTE: PT REQUIRED MOD-MAX A FOR SUPINE TO SIT. PT REQUIRED MOD A FOR STATIC SITTING AT EOB. PT COMPLETED LB HYGIENE TASKS WITH TOTAL A. PT REQUIRED MOD A FOR SIDE ROLLING. PT REQUIRED CUES FOR INCREASED PARTICIPATION. [phone] KENNETH CHANCE COTA
[2020-12-12 18:05] VITALS: BP 128/71
[2020-12-12 20:00] VITALS: BP 157/76
[2020-12-13] VITALS: BP 152/65
--- NOTE | 2020-12-13 03:07 | NUR ---
ASSESSED AT THE BEGINNING OF THE SHIFT. PT IS ALERT AND ORIENTED, ABLE TO VERBALIZE NEEDS. SHE HAS A #6 TRACH WITH COLLAR AT 10 LITERS. SHE IS IN ISOLATIONF FOR ESBC AND REMAINS NPO EXCEPT FOR G-TUBE FEEDINGS. ALL MEDS ARE GIVEN IN HER G-TUBE. SHE HAS OSMOLITE 1.5 INFUSING AT 40CC'S PER HR WITH 30CC'S H20. SHE HAS TELEMETRY IN PLACE SHOWING [address] AND A PUREWICK IN PLACE THAT WORKS SOME OF THE TIME. THE HOB IS UP 30 % AND HER LEFT PORT FORBES NEEDLE IS OUT TO ALLOW THE AREA AROUND THE SITE TO CALM DOWN FROM WHAT LOOKS LIKE A TAPE RASH. SHE HAS REQUESTED AND RECEIVED PAIN MED FOR HER BACK.
[2020-12-13 04:00] VITALS: BP 142/60
[2020-12-13 09:41] VITALS: BP 121/61
--- NOTE | 2020-12-13 10:40 | NUR ---
ASSESSMENT PER FLOW SHEET. PATIENT IS WITHOUT DISTRESS. ISOLATION MAINTAINED. FALL PREVENTION WITH RENETTA MAT.CALL LIGHT IN REACH
[2020-12-13 12:58] VITALS: BP 125/54
--- NOTE | 2020-12-13 13:08 | NUR ---
Nutrition follow-up: Pt NPO Trach; PEG tube with Osmolite 1.5 mary @ 40 ml/hr with 30 ml H2O q hour Pt tolerating TF at goal rate Wt: 114# Labs reviewed Pt currently meeting nutritional goals. RDN follow-up: 12/18/20
[2020-12-13 15:55] VITALS: BP 139/59
--- NOTE | 2020-12-13 17:20 | NUR ---
OT NOTE: PT INITIALLY RESISTANT TO PARTIICPATE IN THERAPY. STATED THAT SHE HAD ALREADY BEEN UP TO EOB WITH THERAPY (HOWEVER, SPOKE WITH P.T. AND SHE DID NOT SIT UP WITH THEM)..PT AGREED TO UE/LE AROM EXS; PRACTICED ROLLING FROM SIDE TO SIDE; FREQ REST BREAKS REQIRED. SIMPLE GROOMING TASKS WITH SET UP BRIAN BYRNE, OTR/L [phone]
--- NOTE | 2020-12-13 18:06 | NUR ---
PATIENT REMAINS WITHOUT DISTRESS. SHE WANTS SUCTIONED FREQUENTLY. I HAVE SUCTIONED HER TWICE TODAY. SHE ALSO ASK FOR RESP TX EARLY. SHE IS WITHOUT CHANGE. CONT PLAN OF CARE
[2020-12-13] MEDS ORDERED: LEVOTHYROXINE150 MCG PEG (19:28)
[2020-12-13 21:12] VITALS: BP 132/54
--- NOTE | 2020-12-14 04:45 | NUR ---
ASSESSED AT THE BEGINNING OF THE SHIFT. PT IS ALERT AND ORIENTED, ABLE TO MAKAE KNOWN HER NEEDS. HE HAS A TRACH COLLAR WITH 10 O2 AND #6 TRACH. HER TUBEL FEEDING HAS GONE ALL NIGHT ORDERED WITH OSMOLITE 1.5 AT 40 CC'S PER HR. ALL MEDS HAVE BEEN GIVEN THRU THE G-TUBE. SHE DID RECEIVE HER PAIN MES TWICE DURING THE NIGHT,ONCE FOR BACK PAIN AND THE 2ND TIME FOR A BAD HEADACHE. IT WAS GIVEN EARLY FOR THE HEADACHE TO GET IT UNDER CONTROL. SHE EMAINS NPO EXCEPT THE G-TUBE.
[2020-12-14 05:56] VITALS: BP 120/52
--- NOTE | 2020-12-14 08:18 | NUR ---
RESTING IN BED WITH EYES EYES CLOSED. TRACH COLLAR PRESENT, CURRENTLY RCVING 10L. NO IV ACCESS. GTUBE PRESENT, FEEDS CURRENTLY AT 40CC/HR. PUREWICK IN PLACE. NO CURRENT S/S OF DISTRESS, WILL CONT TO MONITOR.
[2020-12-14 09:55] VITALS: BP 123/62
[2020-12-14 12:56] VITALS: BP 112/45
--- NOTE | 2020-12-14 17:45 | NUR ---
SUCTIONED PT. SPOKE WITH , PT IS TO BE SUCTIONED Q6 AND PRN!
[2020-12-14 18:16] VITALS: BP 110/50
[2020-12-14 20:52] VITALS: BP 137/76
[2020-12-15 05:25] VITALS: BP 121/41
--- NOTE | 2020-12-15 08:15 | NUR ---
IN BED SUPINE WITH BED IN SEMI-FOWLERS. BREATHING EVEN AND NON LABORED, NO S/S OF DISTRESS NOTED AT THIS TIME. BED IN LOWEST POSITION, BED RAILS X2, CALL LIGHT WITHIN REACH. WILL CONTINUE POC.
--- NOTE | 2020-12-15 10:25 | NUR ---
AAO IN BED, ADMINISTERED MEDICATION VIA PEG TUBE, TOLERATED WELL. PT SITUATED COMFORTABLY IN BED. DENIES ANY NEEDS AT THIS TIME. BED IN LOWEST POSITION, BED RAILS X2, CALL LIGHT WITHIN REACH. WILL CONTINUE POC.
[2020-12-15 11:28] VITALS: BP 121/56
--- NOTE | 2020-12-15 13:25 | NUR ---
ADMINISTERED MEDICATION VIA PEG TUBE, TOLERATED WELL. HR 102 PRIOR TO DIG ADMINISTRATION. RESTING COMFORTABLY. DENIES ANY NEEDS AT THIS TIME. BED IN LOWEST POSITION, BED RAILS X2, CALL LIGHT WITHIN REACH. WILL CONTINUE POC.
[2020-12-15 16:00] VITALS: BP 116/55
--- NOTE | 2020-12-15 17:19 | NUR ---
I have reviewed this patient and I concur with the Shift Assessment completed by the Licensed Practical Nurse today this shift.
--- NOTE | 2020-12-15 17:32 | NUR ---
HAVE MADE 2 CALLS TO THE KITCHEN IN REGARDS TO NEEDING OSMOLITE 1.5 FOR CONTINOUS PEG TUBE FEEDINGS AND NO RESOLVE. ALSO SPOKE WITH DIVINA TORREZ ABOUT NEEDING IT AND WAS INFORMED SHE WOULD TRY TO LOOK FOR SOME.
--- NOTE | 2020-12-15 17:40 | NUR ---
ADMINISTERED PRN NORCO FOR BACK AND TIMED MEDICATION VIA PEG TUBE. TOLERATED WELL. RESTING IN BED WIT HHOB @ 30 DEGREES. PT WAS SUCTIONED AT THIS TIME. DENIES FURTHER NEEDS. WILL CONTINUE POC.
--- NOTE | 2020-12-15 17:45 | NUR ---
3RD CALL MADE TO THE KITCHEN REGARDING PT OSMOLITE. STILL NO RESOLVE. WAITING FOR A CALL BCK FROM DAVID IN DIETARY.
--- NOTE | 2020-12-15 17:50 | NUR ---
OSMOLITE 1.0 BROUGHT UP BY DAVID FROM DIETARY.
--- NOTE | 2020-12-15 18:26 | NUR ---
FULL LINEN CHANGE. CHANGED KANGAROO PEG TUBE BAGS. FRESH WATER AND OSMOLITE 1.5 STARTED AT 40ML/HR. PT SITUATED COMFORTABLY IN BED, HOB >30 DEGREES. DENIES FURTHER NEEDS AT THIS TIME. BED IN LOWEST POSITION, BED RAILS X2, CALL LIGHT WITHIN REACH. WILL CONTINUE POC.
--- NOTE | 2020-12-15 18:30 | NUR ---
CALLED RT ABOUT PATIENT NOT GETTING 1500 BREATHING TREATMENT. STATES HE "THOUGHT SHE WAS GOING HOME AND IS NOT ON THE LIST". STATES HE WILL BE HERE IN ABOUT AN HOUR OR SO TO DO THE SCHEDULED 1900 TREATMENT.
[2020-12-15 18:48] VITALS: BP 118/56
--- NOTE | 2020-12-15 19:20 | NUR ---
RECEIVED REPORT, ASSUMED CARE, BRETAHING SHALLOW, CALL LIGHT IN REACH, FAMILY AT BEDSIDE, REQUESTING TO BE SUCTIONED RESPIRATORY STATED THEY WOULD SUCTION AND GIVE BREATHING TREATMENT, DENIES OTHER NEEDS, BED LOWEST POSITION, HOB GREATER THAN 40, FEEDING AT 40CC, NO S/S OF DISTRESS NOTED, ENCOURAGED PT TO NOTIFY STAFF OF ANY NEEDS
--- NOTE | 2020-12-15 20:11 | MORECARE ---
CASE MANAGEMENT DISCHARGE SUMMARY PATIENT: CHON LUI UNIT: [id number] ADM DATE: 11/30/20 AGE: 70 : 50 SEX: F ROOM/BED: D.2226 AUTHOR: MONET,DOC PHYSICIAN: REFERRING PHYSICIAN: ARTIS OBREGON MD DATE OF SERVICE: 12/15/20 Case Management Discharge Planning Summary COMMENTS ENTERED DATE: 12/15/20 20:06 CT COMMENT TYPE: Discharge Planning REVIEWER: Jayy Obregon FAMILY WANTS TO SPEAK TO MEDICAL PERSONNEL and POSSIBLY MAKE A CHOICE FOR ALTERNATIVE SNF before DC. CM met with patient and daughter, Tanna Gaffney, to complete DC planning and to evaluate needs. Patient lives at [facility]. Tanna stated disappointment at the lack of communication between healthcare personnel and family. Tanna stated that the issue is endemic to both [facility] and [facility]. Patient received DC orders this weekend but [facility], [employer], Racheal stated that the Patient has needs that cannot be met by weekend staff, namely the use of a special pulmonary vest. Racheal stated that the personnel that know how to use the vest are staffed during the week and as such she cannot allow that the patient to DC to [facility] this . Clinical Documents faxed to [facility]. Tanna stated that she has trepidation about sending her mother back to [facility] because her mother was "told" by a physician to change nursing homes. Tanna further stated before her mother is discharged, she would like the following: (1) Tanna would like to speak with a physician or case management tomorrow 12-16-20 regarding the physician's misgivings about [facility]. (2) Tanna would like to discuss an alternative Custodial Facility or LTAC that can accommodate her mother's PEG and TRACH. ELSA gave Tanna a list of SNF. Tanna will research the facilities this evening and make a choice after speaking to medical personnel tomorrow. Tanna stated that her , Ousmane Gaffney, can also make decisions regarding her mother. Patient's pharmacy is at [facility] and the patient utilizes [facility], however, Tanna believes that Dr. Baron should be the primary physician. DC IMM delivered, explained, signed by the patient, and placed in chart. Signed form also left with the patient. CM will continue to follow and will assist as needed with dc plans/needs. DCP REVIEW SUMMARY ANTICIPATED D/C DATE: EXPECTED LOS : CASE STATUS: DCP Initiated INITIAL REVIEW: 11/30/2020 INITIAL REVIEWER: Jayy Obregon FINAL DISCHARGE DISPOSITION: : FINAL REVIEWER: FINAL REVIEW DATE: DCP Focus Questions & Answers DCP Evaluation QUESTION: ANSWER Family / Caregiver's ability to cope with chronic illness: : a. Adequate (ability to meet patient's medical needs, ensures patient attends medical appts.) Patient gives permission to discuss discharge plans with: (name, relationship and number) : Tanna fragoso, Patient's ability to cope with chronic illness : d. No chronic illness Family / Caregiver's ability to cope with chronic illness: : a. Adequate (ability to meet patient's medical needs, ensures patient attends medical appts.) Does the patient have the ability to pay for or attain post discharge needs / services? : Yes Living Arrangements: : Custodial Facility Is there a likelihood that the patient will require additional services to return to the preadmission environment? : Yes Living arrangements comments: : [facility] Patient with capacity for self-care or can be cared for in same environment as prior to hospitalization? : Yes Facility / Agency name and contact information from Question 3 (if applicable): : [facility], Pharmacy name(s): : [facility] Would patient like to participate in any Care Coordination programs (if applicable): : Not applicable Mental health screen: : No mental health history DCP Re-evaluation QUESTION: ANSWER Would patient like to participate in any Care Coordination programs (if applicable): : Not applicable PATIENT: CHON LUI ENCOUNTER: [id number] MEDICAL RECORD#: [id number] ADMISSION DATE: 11/30/2020 DISCHARGE DATE: ATTENDING MD: MARINA: AGE: 70 MARITAL STATUS: W DC PLAN ID: [id number] FACILITY: [facility] PRINTED ON: 12/15/20 20:11 CT All edits/amendments must be made on the electronic document DICTATION DATE: 12/15/202010 TONGER: NAHUN 12/15/202010 RPT#: [id number] DC DATE: STATUS: ADM IN [facility] [address] [place] [address] END OF REPORT
[2020-12-15 22:28] VITALS: BP 113/88
[2020-12-16 09:33] VITALS: BP 113/52
[2020-12-16 13:22] LABS: BASOPHILS 0.3 % (0-2); EOSINOPHILS 0.5 % (0-7); HEMATOCRIT 32.1 % (36.0-48.0); HEMOGLOBIN 10.1 g/dL (12-16); IMMATURE GRANULOCYTES 0.2 % (0-5); LYMPHOCYTE ABS# 1.63 10x3/uL (1.18-3.74); LYMPHOCYTES 18.5 % (15-50); MCH 27.2 pg (26.0-34.0); MCHC 31.5 g/dL (31.0-37.0); MCV 86.5 fL (80.0-100.0); MONOCYTES 10.6 % (2-11); NEUTROPHIL ABS# 6.17 10x3/uL (1.56-6.13); NEUTROPHILS 69.9 % (40-80); PLATELET COUNT 450 10x3/uL (130-400); RBC 3.71 10x6/uL (4.00-5.40); RDW 15.5 % (11.5-14.5); WBC 8.8 10x3/uL (4.8-10.8)
[2020-12-16 13:31] LABS: CALC OSMOLALITY 271 mosm/kg (275-300); CALCIUM 9.7 mg/dL (8.5-10.1); CARBON DIOXIDE 30.7 mmol/L (21.0-32.0); CHLORIDE - SERUM 96 mmol/L (98-107); CREATININE - SERUM 0.4 mg/dL (0.6-1.3); GLUCOSE 143 mg/dL (74-106); POTASSIUM - SERUM 4.8 mmol/L (3.5-5.1); SODIUM 134 mmol/L (136-145); UREA NITROGEN 17 mg/dL (7-18); eGFR NON AFRICAN AMERICAN > 90 mL/min (90-120)
[2020-12-16 13:56] VITALS: BP 125/44
--- NOTE | 2020-12-16 16:36 | NUR ---
OT NOTE: PT REQUIRED MAX A FOR LB HYGIENE TASKS. PT COMPLETED BED MOBILITY WITH MIN A FOR SIDE ROLLING. PT DECLINED TO SIT AT EOB. [phone] KENNETH CHANCE COTA
[2020-12-16 17:05] VITALS: BP 144/82
--- NOTE | 2020-12-16 19:00 | NUR ---
BEDSIDE REPORT RECEIVED AND CARE OF PT ASSUMED. PT LYING IN MID MCNEIL'S POSITION. PEG TUBE PATENT WITH OSMOLITE INFUSING AT 40 ML/HR VIA FEEDING PUMP. TRACH COLAR IN PLACE ON 11L O2. SCD'S IN PLACE. WILL MONITOR FOR NEEDS.
--- NOTE | 2020-12-16 19:30 | NUR ---
LINENS CHANGED DUE TO INCONTINENCE OF URINE. WILL CONTINUE TO MONITOR FOR NEEDS.
--- NOTE | 2020-12-16 20:12 | NUR ---
[facility] MEDICAITONS GIVEN TO INCLUDE NORCO PER REQUEST FOR PAIN...ALL GIVEN VIA PEG TUBE. FLUSHED WITH WATER BEFORE AND AFTER ADMINISTRATION.
[2020-12-16 20:21] VITALS: BP 169/71
--- NOTE | 2020-12-17 03:01 | NUR ---
SUCTIONS TRACH USING STERILE TECHNIQUE. PT TOLERATED WELL.
[2020-12-17 04:30] VITALS: BP 114/55
--- NOTE | 2020-12-17 04:51 | NUR ---
CHANGED OUT FEEDING TUBING AND BAGS. FILLED WITH FRESH WATER AND FORMULA.
[2020-12-17 08:02] VITALS: BP 120/55
[2020-12-17 13:19] VITALS: BP 114/48
[2020-12-17 17:07] VITALS: BP 94/48
--- NOTE | 2020-12-17 19:28 | NUR ---
OT NOTE: PT REQUIRED MOD ASSIST FOR SUPINE TO SIT; PT VERY FEARFUL OF EOB SITTING AND REFUSED TO STAND WITH WALKER. TOLERATED EOB SITTING AND PERFORMED SEVEREL UE/LE EXS WITH MIN ASSIST FOR STATIC SITTING; PT USED PENCIL AND PAD FOR MOST OF COMMUNICATION.. SET UP FOR WASHING HANDS AND FACE WITH WASH CLOTH. BRIAN CARVAJAL, OTR/L [phone]
[2020-12-17 20:23] VITALS: BP 132/52
[2020-12-18 04:30] VITALS: BP 144/63
--- NOTE | 2020-12-18 06:04 | NUR ---
I have reviewed this patient and I concur with the Shift Assessment completed by the Licensed Practical Nurse today this shift.
[2020-12-18 08:15] VITALS: BP 118/60
--- NOTE | 2020-12-18 10:57 | NUR ---
RESTING IN BED, NO DISTRESS NOTED, PEG TUBE TO ABD, MEDS GIVEN THRU PEG, NPO, O2 PER TRACH AT 40%, ALERT AND O, WILL SEND BACK TO [facility] TODAY
[2020-12-18 13:00] VITALS: BP 119/57
--- NOTE | 2020-12-18 13:02 | MORECARE ---
CASE MANAGEMENT DISCHARGE SUMMARY PATIENT: CHON LUI UNIT: [id number] ADM DATE: 11/30/20 AGE: 70 : 50 SEX: F ROOM/BED: D.2226 AUTHOR: MONET,DOC PHYSICIAN: REFERRING PHYSICIAN: ARTIS OBREGON MD DATE OF SERVICE: 12/18/20 Case Management Discharge Planning Summary COMMENTS ENTERED DATE: 12/18/20 12:25 CT COMMENT TYPE: Discharge Planning REVIEWER: Magaly Duran I spoke with patient and daughter about their options of facilities. Per Lyndsey the daughter there were only 2 places who would take her with her PEG and Trach. Luis M said that she would like her to go back there and she would look into other places. She has been there for a year. I called Tomás about her readmission and staff knowing about the vest. He stated that they got a new vest and everyone has been in serviced on it. I also called Issa the DON there and she confirmed that everyone has been taught how to do the vest. Issa stated last time the patient came back on to high flow o2 and had to return. Per our RT patient is on 6L which is her baseline. She will be returning to [facility] via EMS to a care home bed. IMM served and explained. NIDHI signed and daughter aware of plans. CM to follow as needed ENTERED DATE: 12/15/20 20:06 CT COMMENT TYPE: Discharge Planning REVIEWER: Jayy Obregon FAMILY WANTS TO SPEAK TO MEDICAL PERSONNEL and POSSIBLY MAKE A CHOICE FOR ALTERNATIVE SNF before DC. CM met with patient and daughter, Tanna Gaffney, to complete DC planning and to evaluate needs. Patient lives at [facility]. Tanna stated disappointment at the lack of communication between healthcare personnel and family. Tanna stated that the issue is endemic to both [facility] and [facility]. Patient received DC orders this weekend but [facility], Weekend Adjunct Art History Instructor, Racheal stated that the Patient has needs that cannot be met by weekend staff, namely the use of a special pulmonary vest. Racheal stated that the personnel that know how to use the vest are staffed during the week and as such she cannot allow that the patient to DC to [facility] this weekend. Clinical Documents faxed to [facility]. Tanna stated that she has trepidation about sending her mother back to [facility] because her mother was "told" by a physician to change nursing homes. Tanna further stated before her mother is discharged, she would like the following: (1) Tanna would like to speak with a physician or case management tomorrow 12-16-20 regarding the physician's misgivings about [facility]. (2) Tanna would like to discuss an alternative Mc[facility] Facility or LTAC that can accommodate her mother's PEG and TRACH. CM gave Tanna a list of SNF. Tanna will research the facilities this evening and make a choice after speaking to medical personnel tomorrow. Tanna stated that her , Ousmane Gaffney, can also make decisions regarding her mother. Patient's pharmacy is at [facility] and the patient utilizes [facility] Medical Staff, however, Tanna believes that Dr. Baron should be the primary physician. DC IMM delivered, explained, signed by the patient, and placed in chart. Signed form also left with the patient. CM will continue to follow and will assist as needed with dc plans/needs. CAP REVIEW SUMMARY ANTICIPATED D/C DATE: EXPECTED LOS : CASE STATUS: DCP Initiated INITIAL REVIEW: 11/30/2020 INITIAL REVIEWER: Jayy Obregon FINAL DISCHARGE DISPOSITION: : FINAL REVIEWER: FINAL REVIEW DATE: DCP Focus Questions & Answers CAP Evaluation QUESTION: ANSWER Patient's ability to cope with chronic illness : d. No chronic illness Patient gives permission to discuss discharge plans with: (name, relationship and number) : daughter, Tanna Gaffney, Family / Caregiver's ability to cope with chronic illness: : a. Adequate (ability to meet patient's medical needs, ensures patient attends medical appts.) Does the patient have the ability to pay for or attain post discharge needs / services? : Yes Family / Caregiver's ability to cope with chronic illness: : a. Adequate (ability to meet patient's medical needs, ensures patient attends medical appts.) Is there a likelihood that the patient will require additional services to return to the preadmission environment? : Yes Living Arrangements: : [facility] Facility Patient with capacity for self-care or can be cared for in same environment as prior to hospitalization? : Yes Living arrangements comments: : [facility] Facility / Agency name and contact information from Question 3 (if applicable): : Areli Guo, Pharmacy name(s): : [facility] Would patient like to participate in any Care Coordination programs (if applicable): : Not applicable Mental health screen: : No mental health history DCP Re-evaluation QUESTION: ANSWER Would patient like to participate in any Care Coordination programs (if applicable): : Not applicable PATIENT: CHON LUI ENCOUNTER: [id number] MEDICAL RECORD#: [id number] ADMISSION DATE: 11/30/2020 DISCHARGE DATE: ATTENDING MD: MARINA: AGE: 70 MARITAL STATUS: W DC PLAN ID: [id number] FACILITY: [facility] PRINTED ON: 12/18/20 13:01 CT All edits/amendments must be made on the electronic document DICTATION DATE: 12/18/20 1301 MANAGER PROJECT MANAGEMENT: NAHUN 12/18/20 1301 RPT#: [id number] DC DATE: STATUS: ADM IN [facility] [address] [place] [address] END OF REPORT
--- NOTE | 2020-12-18 13:55 | NUR ---
REPORT CALLED TO GI AT [facility]
[2020-12-18] MEDS ORDERED: AUGMENTIN 875-11 TAB PO (15:17)
--- NOTE | 2020-12-18 15:55 | NUR ---
TAKEN PER STRETCHER BACK TO [facility], PEG TUBE FLUSHED TO CLEAR, YA WELL, O2 PER TRACH COLLAR
--- NOTE | 2020-12-18 18:08 | MORECARE ---
CASE MANAGEMENT DISCHARGE SUMMARY PATIENT: CHON LUI UNIT: [id number] ADM DATE: 11/30/20 AGE: 70 : 50 SEX: F ROOM/BED: D.2226 AUTHOR: MONET,DOC PHYSICIAN: REFERRING PHYSICIAN: ARTIS OBREGON MD DATE OF SERVICE: 12/18/20 Case Management Discharge Planning Summary COMMENTS ENTERED DATE: 12/18/20 12:25 CT COMMENT TYPE: Discharge Planning REVIEWER: Magaly Duran I spoke with patient and daughter about their options of facilities. Per Lyndsey the daughter there were only 2 places who would take her with her PEG and Trach. Luis M said that she would like her to go back there and she would look into other places. She has been there for a year. I called Tomás about her readmission and staff knowing about the vest. He stated that they got a new vest and everyone has been in serviced on it. I also called Issa the DON there and she confirmed that everyone has been taught how to do the vest. Issa stated last time the patient came back on to high flow o2 and had to return. Per our RT patient is on 6L which is her baseline. She will be returning to [facility] via EMS to a longterm bed. IMM served and explained. NIDHI signed and daughter aware of plans. CM to follow as needed ENTERED DATE: 12/15/20 20:06 CT COMMENT TYPE: Discharge Planning REVIEWER: Jayy Obregon FAMILY WANTS TO SPEAK TO MEDICAL PERSONNEL and POSSIBLY MAKE A CHOICE FOR ALTERNATIVE SNF before DC. CM met with patient and daughter, Tanna Gaffney, to complete DC planning and to evaluate needs. Patient lives at [facility] ([place] [place] Tanna stated disappointment at the lack of communication between healthcare personnel and family. Tanna stated that the issue is endemic to both [facility] and [facility] ([place], [place] Patient received DC orders this weekend but [facility] [place] Weekend Grain Elevator Clerk, Racheal stated that the Patient has needs that cannot be met by weekend staff, namely the use of a special pulmonary vest. Racheal stated that the personnel that know how to use the vest are staffed during the week and as such she cannot allow that the patient to DC to [facility] [place] this weekend. Clinical Documents faxed to [facility] [place] Tanna stated that she has trepidation about sending her mother back to [facility] [place] because her mother was "told" by a physician to change nursing homes. Tanna further stated before her mother is discharged, she would like the following: (1) Tanna would like to speak with a physician or case management tomorrow 12-16-20 regarding the physician's misgivings about [facility], [place] (2) Tanna would like to discuss an alternative Snf Facility or LTAC that can accommodate her mother's PEG and TRACH. CM gave Tanna a list of SNF. Tanna will research the facilities this evening and make a choice after speaking to medical personnel tomorrow. Tanna stated that her , Ousmane Gaffney, can also make decisions regarding her mother. Patient's pharmacy is at [facility] ([place], [place] and the patient utilizes [facility] [place] Medical Staff, however, Tanna believes that Dr. Baron should be the primary physician. DC IMM delivered, explained, signed by the patient, and placed in chart. Signed form also left with the patient. CM will continue to follow and will assist as needed with dc plans/needs. DCP REVIEW SUMMARY ANTICIPATED D/C DATE: EXPECTED LOS : 0 CASE STATUS: DCP Complete INITIAL REVIEW: 11/30/2020 INITIAL REVIEWER: Jayy Obregon FINAL DISCHARGE DISPOSITION: : FINAL REVIEWER: Magaly Duran FINAL REVIEW DATE: 12/18/2020 DCP Focus Questions & Answers DCP Evaluation QUESTION: ANSWER Patient's ability to cope with chronic illness : d. No chronic illness Patient gives permission to discuss discharge plans with: (name, relationship and number) : daughter, Tanna Gaffney, Family / Caregiver's ability to cope with chronic illness: : a. Adequate (ability to meet patient's medical needs, ensures patient attends medical appts.) Does the patient have the ability to pay for or attain post discharge needs / services? : Yes Family / Caregiver's ability to cope with chronic illness: : a. Adequate (ability to meet patient's medical needs, ensures patient attends medical appts.) Is there a likelihood that the patient will require additional services to return to the preadmission environment? : Yes Living Arrangements: : Snf Facility Patient with capacity for self-care or can be cared for in same environment as prior to hospitalization? : Yes Living arrangements comments: : [facility] ([place], [place]) Facility / Agency name and contact information from Question 3 (if applicable): : [facility] [place]), Pharmacy name(s): : [facility] [place] Pharmacy Would patient like to participate in any Care Coordination programs (if applicable): : Not applicable Mental health screen: : No mental health history DCP Re-evaluation QUESTION: ANSWER Would patient like to participate in any Care Coordination programs (if applicable): : Not applicable PATIENT: CHON LUI ENCOUNTER: [id number] MEDICAL RECORD#: [id number] ADMISSION DATE: 11/30/2020 DISCHARGE DATE: 12/18/2020 ATTENDING MD: MARINA: AGE: 70 MARITAL STATUS: W DC PLAN ID: [id number] FACILITY: [facility] PRINTED ON: 12/18/20 18:08 CT All edits/amendments must be made on the electronic document DICTATION DATE: 12/18/201805 SAVINGS TELLER: NAHUN 12/18/201805 RPT#: [id number] DC DATE:12/18/20 STATUS: DIS IN [facility] [address] [place] [address] END OF REPORT
--- NOTE | 2020-12-19 11:23 | MORECARE ---
CASE MANAGEMENT DISCHARGE SUMMARY PATIENT: CHON LUI UNIT: [id number] ADM DATE: 11/30/20 AGE: 70 : 50 SEX: F ROOM/BED: D.2226 AUTHOR: MONET,DOC PHYSICIAN: REFERRING PHYSICIAN: ARTIS OBREGON MD DATE OF SERVICE: 12/19/20 Case Management Discharge Planning Summary COMMENTS ENTERED DATE: 12/18/20 12:25 CT COMMENT TYPE: Discharge Planning REVIEWER: Magaly Duran I spoke with patient and daughter about their options of facilities. Per Lyndsey the daughter there were only 2 places who would take her with her PEG and Trach. Luis M said that she would like her to go back there and she would look into other places. She has been there for a year. I called Tomás about her readmission and staff knowing about the vest. He stated that they got a new vest and everyone has been in serviced on it. I also called Issa the DON there and she confirmed that everyone has been taught how to do the vest. Issa stated last time the patient came back on to high flow o2 and had to return. Per our RT patient is on 6L which is her baseline. She will be returning to [facility] via EMS to a detention bed. IMM served and explained. NIDHI signed and daughter aware of plans. CM to follow as needed ENTERED DATE: 12/15/20 20:06 CT COMMENT TYPE: Discharge Planning REVIEWER: Jayy Obregon FAMILY WANTS TO SPEAK TO MEDICAL PERSONNEL and POSSIBLY MAKE A CHOICE FOR ALTERNATIVE SNF before DC. CM met with patient and daughter, Tanna Gaffney, to complete DC planning and to evaluate needs. Patient lives at [facility] [place] [place]. Tanna stated disappointment at the lack of communication between healthcare personnel and family. Tanna stated that the issue is endemic to both [facility] and [facility] [place]. Patient received DC orders this weekend but [facility] [place], Weekend Physical Education Aide, Racheal stated that the Patient has needs that cannot be met by weekend staff, namely the use of a special pulmonary vest. Racheal stated that the personnel that know how to use the vest are staffed during the week and as such she cannot allow that the patient to DC to [facility] [place] this weekend. Clinical Documents faxed to [facility] [place]. Tanna stated that she has trepidation about sending her mother back to [facility] [place] because her mother was "told" by a physician to change nursing homes. Tanna further stated before her mother is discharged, she would like the following: (1) Tanna would like to speak with a physician or case management tomorrow 12-16-20 regarding the physician's misgivings about [facility] [place]. (2) Tanna would like to discuss an alternative Correction Facility or LTAC that can accommodate her mother's PEG and TRACH. CM gave Tanna a list of SNF. Tanna will research the facilities this evening and make a choice after speaking to medical personnel tomorrow. Tanna stated that her , Ousmane Gaffney, can also make decisions regarding her mother. Patient's pharmacy is at [facility] [place] and the patient utilizes [facility] [place] Medical Staff, however, Tanna believes that Dr. Baron should be the primary physician. DC IMM delivered, explained, signed by the patient, and placed in chart. Signed form also left with the patient. CM will continue to follow and will assist as needed with dc plans/needs. DCP REVIEW SUMMARY ANTICIPATED D/C DATE: EXPECTED LOS : 0 CASE STATUS: DCP Complete INITIAL REVIEW: 11/30/2020 INITIAL REVIEWER: Jayy Obregon FINAL DISCHARGE DISPOSITION: : FINAL REVIEWER: Magaly Duran FINAL REVIEW DATE: 12/18/2020 DCP Focus Questions & Answers DCP Evaluation QUESTION: ANSWER Family / Caregiver's ability to cope with chronic illness: : a. Adequate (ability to meet patient's medical needs, ensures patient attends medical appts.) Patient's ability to cope with chronic illness : d. No chronic illness Patient gives permission to discuss discharge plans with: (name, relationship and number) : daughterTanna, Does the patient have the ability to pay for or attain post discharge needs / services? : Yes Family / Caregiver's ability to cope with chronic illness: : a. Adequate (ability to meet patient's medical needs, ensures patient attends medical appts.) Is there a likelihood that the patient will require additional services to return to the preadmission environment? : Yes Living Arrangements: : [facility] Facility Patient with capacity for self-care or can be cared for in same environment as prior to hospitalization? : Yes Living arrangements comments: : [facility] [place] [place] Facility / Agency name and contact information from Question 3 (if applicable): : [facility] [place], Pharmacy name(s): : [facility] [place] [facility] Would patient like to participate in any Care Coordination programs (if applicable): : Not applicable Mental health screen: : No mental health history DCP Re-evaluation QUESTION: ANSWER Would patient like to participate in any Care Coordination programs (if applicable): : Not applicable PATIENT: CHON LUI ENCOUNTER: [id number] MEDICAL RECORD#: [id number] ADMISSION DATE: 11/30/2020 DISCHARGE DATE: 12/18/2020 ATTENDING MD: MARINA: AGE: 70 MARITAL STATUS: W DC PLAN ID: [id number] FACILITY: [facility] PRINTED ON: 12/19/20 11:23 CT All edits/amendments must be made on the electronic document DICTATION DATE: 12/19/20 112 INTAKE CLERK: NAHUN 12/19/20 1123 RPT#: [id number] DC DATE:12/18/20 STATUS: DIS IN [facility] [address] [place] [address] END OF REPORT
== END 2020-12-18 15:55 | DRG 177 ==
LOC: D.ER 03:56 → D.MS 05:21
PROVIDERS: Family Medicine; Legal Medicine; ADMIT Emergency Medicine; ATTEND Emergency Medicine
DX: J69.0 Pneumonitis due to inhalation of food and vomit (principal); J96.22 Acute and chronic respiratory failure with hypercapnia; J96.21 Acute and chronic respiratory failure with hypoxia; I50.32 Chronic diastolic (congestive) heart failure; Z93.0 Tracheostomy status; R00.0 Tachycardia, unspecified; J44.9 Chronic obstructive pulmonary disease, unspecified; I11.0 Hypertensive heart disease with heart failure; E03.9 Hypothyroidism, unspecified; F32.9 Major depressive disorder, single episode, unspecified; I48.91 Unspecified atrial fibrillation; K21.9 Gastro-esophageal reflux disease without esophagitis; M19.90 Unspecified osteoarthritis, unspecified site; D50.9 Iron deficiency anemia, unspecified; Z85.118 Personal history of other malignant neoplasm of bronchus and lung

== ENCOUNTER 2020-12-21 11:16 | Inpatient (IN) | payer MEDICARE ==
[~2020-12-21] VITALS: Ht 160 cm; Wt 56.7 kg
[~2020-12-21 11:16] MED LIST changes: +LEVOTHYROXINE150 MCG PEG
[2020-12-21] MEDS ORDERED: [UNRECOGNIZED DRUG - OTHER] (11:27)
[2020-12-21] MEDS ORDERED: BROVANA15 MCG/2 M INH (11:33)
[2020-12-21 11:39] LABS: BASOPHILS 0.3 % (0-2); EOSINOPHILS 1.3 % (0-7); HEMATOCRIT 33.3 % (36.0-48.0); HEMOGLOBIN 10.4 g/dL (12-16); IMMATURE GRANULOCYTES 0.6 % (0-5); LYMPHOCYTE ABS# 1.66 10x3/uL (1.18-3.74); MCH 26.9 pg (26.0-34.0); MCHC 31.2 g/dL (31.0-37.0); MCV 86.3 fL (80.0-100.0); MEAN PLATELET VOLUME 8.9 fL (7.4-10.4); MONOCYTES 8.4 % (2-11); NEUTROPHIL ABS# 8.23 10x3/uL (1.56-6.13); NEUTROPHILS 74.4 % (40-80); PLATELET COUNT 500 10x3/uL (130-400); RBC 3.86 10x6/uL (4.00-5.40); RDW 15.3 % (11.5-14.5); WBC 11.1 10x3/uL (4.8-10.8)
[2020-12-21 11:54] LABS: CALC OSMOLALITY 277 mosm/kg (275-300); CALCIUM 9.7 mg/dL (8.5-10.1); CARBON DIOXIDE 34.4 mmol/L (21.0-32.0); CHLORIDE - SERUM 99 mmol/L (98-107); CREATININE - SERUM 0.7 mg/dL (0.6-1.3); GLUCOSE 125 mg/dL (74-106); POTASSIUM - SERUM 4.8 mmol/L (3.5-5.1); SODIUM 137 mmol/L (136-145); UREA NITROGEN 21 mg/dL (7-18); eGFR NON AFRICAN AMERICAN 88 mL/min (90-120)
[2020-12-21 12:11] LABS: ALBUMIN 2.6 g/dL (3.4-5.0); ALKALINE PHOSPHATASE 124 U/L (30-120); ALT (SGPT) 17 U/L (10-68); CKMB 0.3 U/L (0.0-3.6); CREATINE KINASE 15 UL (21-215); PRO BNP 562 pg/mL (0-125); PROTEIN - SERUM 8.1 g/dL (6.4-8.2)
[2020-12-21 12:12] LABS: TROPONIN-I < 0.017 ng/mL (0.000-0.060)
[2020-12-21 12:43] LABS: APTT 34.4 SECONDS (22.8-39.4)
--- NOTE | 2020-12-21 12:49 | NUR ---
PT. HAD AN ANPAPHYLACTIC REACTION TO VANCOMYCIN. I IMMEDIATELY STOPPED INFUSION AND FLUSHED IV TUBING W/ NS AND NOTIFIED Keshia VAZQUEZ APN.
[2020-12-21 12:53] LABS: INR 1.25 (0.85-1.17); PROTIME 14.6 SECONDS (11.6-15.0)
[2020-12-21 13:00] VITALS: BP 110/42
--- NOTE | 2020-12-21 14:32 | NUR ---
CALL TO [facility] FOR PAPERWORK. SPOKE WITH CHRISTOPHE. SHE WILL FAX RECORDS OVER. DR NAVARRETE AND APRIL HARRELL APN ARE OVER PATIENT CARE AT [facility].
[2020-12-21 14:45] VITALS: BP 107/53; BMI 22.1
--- NOTE | 2020-12-21 14:45 | NUR ---
ALERT AND ORIENTED X4 O2 8L VIA TRACH COLLAR WITH #6 TRACH. LUNGS DIMINISHED TO BLQ WITH EXPIRATORY WHEEZES BUQ ANTERIOR. CAP REFILL <3 SEC. REQUIRES MAX ASSSIT WITH TRANSFERS. OREINTED TO ROOM AND ENCOURGED TO USE CALL LIGHT FOR ASSSIT. FALL PRECAUTIONS IN PLACE WELL SCD'S. PATINET UNABLE TO DO INCENTIVE SPIROMETRY.
--- NOTE | 2020-12-21 18:31 | NUR ---
REMAINS WITHOUT RESPIRATORY DISTRESS. RT HAS PLACED HER ON 9 LITERS PER TRACHE COLLAR,SATS 94%. SHE HAS BEEN INCONTINENT OF URINE AND PUREWICK HAS BEEN PLACED. REDNESS NOTED TO ENTIRE SHAVON AREA AND INNER BUTTOCKS.BUTT PASTE APPLIED.FALL PREVENTION IN PLACE WITH BED ALARM.DR NAVARRETE TO SEE PATIENT AND RENEW MEDICATIONS.FAMILY HAS BEEN TO VISIT.
[2020-12-21 20:00] VITALS: BP 114/49
[2020-12-22] VITALS: BP 99/42
[2020-12-22 04:00] VITALS: BP 127/58
[2020-12-22 06:31] LABS: ALBUMIN 2.5 g/dL (3.4-5.0); ALKALINE PHOSPHATASE 97 U/L (30-120); ALT (SGPT) 16 U/L (10-68); BILIRUBIN - TOTAL 0.16 mg/dL (0.2-1.3); CALC OSMOLALITY 276 mosm/kg (275-300); CALCIUM 9.9 mg/dL (8.5-10.1); CARBON DIOXIDE 30.8 mmol/L (21.0-32.0); CHLORIDE - SERUM 98 mmol/L (98-107); GLUCOSE 127 mg/dL (74-106); POTASSIUM - SERUM 4.6 mmol/L (3.5-5.1); PROTEIN - SERUM 7.8 g/dL (6.4-8.2); SODIUM 136 mmol/L (136-145); UREA NITROGEN 21 mg/dL (7-18)
[2020-12-22 06:32] LABS: BASOPHILS 0 % (0-2); CREATININE - SERUM 0.5 mg/dL (0.6-1.3); EOSINOPHILS 0 % (0-7); HEMATOCRIT 30.5 % (36.0-48.0); HEMOGLOBIN 9.5 g/dL (12-16); IMMATURE GRANULOCYTES 1.1 % (0-5); LYMPHOCYTE ABS# 1.01 10x3/uL (1.18-3.74); LYMPHOCYTES 15.6 % (15-50); MCH 26.7 pg (26.0-34.0); MCHC 31.1 g/dL (31.0-37.0); MCV 85.7 fL (80.0-100.0); MEAN PLATELET VOLUME 8.9 fL (7.4-10.4); NEUTROPHIL ABS# 5.25 10x3/uL (1.56-6.13); NEUTROPHILS 81.3 % (40-80); PLATELET COUNT 446 10x3/uL (130-400); RBC 3.56 10x6/uL (4.00-5.40); RDW 15.3 % (11.5-14.5); WBC 6.5 10x3/uL (4.8-10.8); eGFR NON AFRICAN AMERICAN > 90 mL/min (90-120)
[2020-12-22 07:40] VITALS: BP 116/51
[2020-12-22 08:29] VITALS: BP 100/51
--- NOTE | 2020-12-22 09:23 | NUR ---
ASSESSMENT PER FLOW SHEET. PATIENT IS WITHOUT DISTRESS.STATES FEELS BETTER TODAY.02 SATS 94% ON 9 LITERS PER TRACHE COLLAR.FALL PREVENTION WITH BED ALARM. MONITOR FOR NEEDS. WAITING ON LASIX FROM PHARMACY.LACTINEX WILL BE GIVEN ONE HOUR POST AUGMENTIN.
[2020-12-22] MEDS ORDERED: OSMOLITE 1.5 PEG (10:24)
--- NOTE | 2020-12-22 12:00 | NUR ---
OUT OF BED TO CHAIR WITH PT.
--- NOTE | 2020-12-22 12:03 | NUR ---
SPOKE WITH MARU WITH PT. HE WILL COME AND EVAL PATIENT AND GET HER OUT OF BED.
[2020-12-22 13:34] VITALS: BP 122/57
--- NOTE | 2020-12-22 13:34 | NUR ---
PATIENT WANTS BACK IN BED AT 1400. I INSTRUCTED PATIENT SHE IS TO BE OUT OF BED 6 HOURS PER DAY PER DR GÓMEZ. I ALSO INSTRUCTED HER IT IS PART OF HER THERAPY AND THAT SHE NEEDS TO WAIT UNTIL 1500. I TOLD HER SHE COULD REST IN BETWEEN 3 HOUR SESSIONS, BUT SHE WOULD NEED TO BE BACK UP THIS AFTERNOON AFTER RESTING.MONITOR FOR NEEDS.
--- NOTE | 2020-12-22 15:03 | NUR ---
BACK TO BED AFTER SITTING UP IN CHAIR FOR THREE HOURS. PATIENT INSTRUCTED SHE WOULD GET TO REST FOR A WHILE AND THEN BE BACK UP TO CHAIR FOR AT LEAST TWO HOURS.
[2020-12-22 17:30] VITALS: BP 120/72
--- NOTE | 2020-12-22 18:49 | NUR ---
WITHOUT CHANGE FROM INITIAL SHIFT ASSESSMENT.FAMILY HAS BEEN TO VISIT.CONT PLAN OF CARE
[2020-12-23] VITALS: BP 128/50
--- NOTE | 2020-12-23 02:32 | NUR ---
PATIENT C/O OF DIFFICULTY BREATHING AND SWALLOWING. PULLED PATIENT UP IN BED, ENSURED HOB WAS UP. SUCTIONED PATIENT. SATS INCREASED FROM 90% TO 95%. PATIENT REPORTS RELIEF. WILL CONTINUE TO MONITOR.
[2020-12-23 04:00] VITALS: BP 144/54
--- NOTE | 2020-12-23 06:38 | NUR ---
PIV TO RIGHT WRIST INFILTRATED. PIV REMOVED. PRESSURE DRESSING APPLIED TO SITE. NEW 20G PIV STARTED TO LEFT AC.
[2020-12-23 08:58] VITALS: BP 128/56
[2020-12-23 12:47] VITALS: Ht 160 cm; Wt 56.7 kg
--- NOTE | 2020-12-23 13:32 | NUR ---
PATIENT REFUSED TO SIT ON SOB OR TO SIT IN CHAIR DID SOME BED MOBILTY WILL TRY AGAIN TOMERROL
[2020-12-23 13:53] VITALS: BP 132/81
[2020-12-23 17:36] VITALS: BP 119/50
[2020-12-24] VITALS: BP 113/62
[2020-12-24 04:00] VITALS: BP 126/50
--- NOTE | 2020-12-24 07:19 | NUR ---
PATIENT HAS BEEN AWAKE MOST OF THE SHIFT, PAIN HAS BEEN MANAGED WITH THE PRESCRIBED TYLENOL. SHE IS CURRENTLY RESTING IN BED.
[2020-12-24 09:25] VITALS: BP 121/72
[2020-12-24 12:42] VITALS: BP 115/57
--- NOTE | 2020-12-24 14:03 | NUR ---
PATIENT WAS UP IN CHAIR FOR OVER A HOUR WAS A MOD ASSIT TO TRANSFER TO CHAIR AND BACK TO BED
[2020-12-24 18:14] VITALS: BP 125/71
[2020-12-24 20:00] VITALS: BP 108/61
[2020-12-25 04:00] VITALS: BP 132/73
--- NOTE | 2020-12-25 07:47 | NUR ---
RESTING IN BED WITH EYES CLOSED, EASILY AROUSED TO SPEECH. IV LOCATED TO LEFT AC CURRENTLY SL. TRACH COLLAR PRESENT, CURRENTLY RCVING 8L. FEEDING TUBE PRESENT CURRENTLY RUNNING 40CC CONT. NO CURRENT S/S OF DISTRESS AT THIS TIME, WILL CONT TO MONITOR.
[2020-12-25 09:01] VITALS: BP 130/64
[2020-12-25 09:52] LABS: BASOPHILS 0.3 % (0-2); EOSINOPHILS 1.9 % (0-7); HEMATOCRIT 33.1 % (36.0-48.0); HEMOGLOBIN 10.3 g/dL (12-16); IMMATURE GRANULOCYTES 1.1 % (0-5); LYMPHOCYTES 22.8 % (15-50); MCH 27.1 pg (26.0-34.0); MCHC 31.1 g/dL (31.0-37.0); MCV 87.1 fL (80.0-100.0); MONOCYTES 8.3 % (2-11); NEUTROPHIL ABS# 5.19 10x3/uL (1.56-6.13); NEUTROPHILS 65.6 % (40-80); PLATELET COUNT 442 10x3/uL (130-400); RDW 15.2 % (11.5-14.5); WBC 7.9 10x3/uL (4.8-10.8)
[2020-12-25 09:55] LABS: ALBUMIN 2.5 g/dL (3.4-5.0); ALKALINE PHOSPHATASE 100 U/L (30-120); ALT (SGPT) 21 U/L (10-68); BILIRUBIN - TOTAL 0.12 mg/dL (0.2-1.3); CALC OSMOLALITY 280 mosm/kg (275-300); CALCIUM 8.9 mg/dL (8.5-10.1); CARBON DIOXIDE 33.6 mmol/L (21.0-32.0); CHLORIDE - SERUM 101 mmol/L (98-107); CREATININE - SERUM 0.6 mg/dL (0.6-1.3); GLUCOSE 137 mg/dL (74-106); POTASSIUM - SERUM 3.4 mmol/L (3.5-5.1); PROTEIN - SERUM 7.3 g/dL (6.4-8.2); SODIUM 139 mmol/L (136-145); UREA NITROGEN 14 mg/dL (7-18); eGFR NON AFRICAN AMERICAN > 90 mL/min (90-120)
--- NOTE | 2020-12-25 13:41 | NUR ---
Nutrition follow-up: Pt with trach, PEG tube PEG tube with Osmolite 1.5 mary infusing @ 40 ml/hr; pt tolerating at this time Labs reviewed Wt: 125# +BM Pt tolerating TF at goal rate. Recommendation: Please weigh pt daily during hospital stay. RDN follow-up: 12/30/20
[2020-12-25 13:55] VITALS: BP 147/55
--- NOTE | 2020-12-25 14:04 | NUR ---
UP AND BACK TO BED WITH MOD ASSIT
[2020-12-25 17:46] VITALS: BP 111/42
[2020-12-25 19:41] VITALS: BP 94/46
--- NOTE | 2020-12-26 00:44 | NUR ---
PT IS RESTING IN BED WITH EYES OPEN. PT WAS GIVEN A BATH, PT HAD SMALL BM. PT HAS NO NEEDS AT THE MOMENT WILL CONT TO MONITOR.
[2020-12-26 03:19] VITALS: BP 117/55
--- NOTE | 2020-12-26 03:54 | NUR ---
I have reviewed this patient and I concur with the Shift Assessment completed by the Licensed Practical Nurse today this shift.
--- NOTE | 2020-12-26 08:05 | NUR ---
RESTING IN BED. ON CELL PHONE. SUCTION TRACH PALE YELLOW THICK SPUTUM. GOOD COUGH. TOLERATED WELL. PEG INFUSING WITH OSMOTLITE AT 40 ML HOUR. DENIES PAIN. NO DISTRESS
[2020-12-26 08:34] VITALS: BP 110/49
[2020-12-26 12:49] VITALS: BP 118/59
--- NOTE | 2020-12-26 14:50 | NUR ---
PATIENT REFUSED PT WAS ABLE TO DO SOME BED MOBILTY
[2020-12-26 16:40] VITALS: BP 122/57
--- NOTE | 2020-12-26 17:07 | NUR ---
SUCTION TRACH SEVERAL TIMES. WHITE THICK SPUTUM. GOOD COUGH. VOIDED LARGE AMOUNT INCONT JEIMY URINE. TUBE FEEDING CONTINUES AT 40 ML HOUR OSMOLITE. PERINEAL AREA SLIGHT REDNESS NOTED. MOISTURE BARRIER APPLIED AFTER EACH VOID. PATEINT CAN TURN SELF FROM SIDE TO SIDE. SALINE LOCK IV LEFT FOREARM.
[2020-12-26 20:00] VITALS: BP 113/45
[2020-12-27] VITALS: BP 118/49
--- NOTE | 2020-12-27 01:28 | NUR ---
ASSESSED AT THE BEGINNING OF SHIFT. PT IS ALERT AND ORIENTED, ABLE TO VERBALIZE NEEDS. SHE HAS A G-TUBE WITH FEEDING INFUSING ORDERED AT 40 CC'S AN HR. ALL MEDS HAVE BEEN PLACED IN G-TUBE AND WE ARE PUTTING NYSTOP POWER ON HER RASH WHICH IS TO HER SHAVON AREA. AT HS SHE WAS GIVEN NORCO FOR GENERALIZED PAIN AND WE HAVE CHANGED HER EACH TIME SHE IS INCONT. OF URINE. SHE IS NOT A GOOD SLEEPER AND IS AWAKE OFF AND ON BUT HAS NOT REQUESTED ANY OTHER NEEDS.
[2020-12-27 04:00] VITALS: BP 103/55
[2020-12-27 10:18] VITALS: BP 108/60
--- NOTE | 2020-12-27 11:40 | NUR ---
PATIENT REFUSED TO GO TO CHAIR, ONLY WANTED TO BE MOVED UP IN BED. ASSISTED NSG IN MOVING PATIENT UP IN BED.
[2020-12-27 13:05] VITALS: BP 106/52
[2020-12-27 17:31] VITALS: BP 110/55
--- NOTE | 2020-12-27 19:32 | NUR ---
0700 BEDSIDE REPORT RECEIVED RHONCHI NOTED STERILE DEEP SUCTION PERFORMED
--- NOTE | 2020-12-27 19:34 | NUR ---
1200 DEEP SUCTIONED 4 MORE TIMES THIS AM
[2020-12-27 21:01] VITALS: BP 137/54
--- NOTE | 2020-12-27 23:25 | NUR ---
ASSESSED AT THE BEGINNING OF THE SHIFT. PT IS ALERT AND ORIENTED AND CAN VERBALIZE ANY NEEDS. SHE HAS A TRACH COLLAR AT 35 % AND THE TRACH IS A #6. HER FEEDING OF OSMOLYTE 1.5 IS INFUSING PER G-TUBE AT 40 CC'S . ALL HER HS MEDS WERE GIVEN THROUGH HER G-TUBE. WE ARE PUTTING NYSTOP ON HER SHAVON AREA AND COCCYX FOR A RED RASH WHICH LOOKS BETTER TONIGHT. THE HOB IS UP 30% AND SHE HAD NORCO AT BEDTIME FOR BACK PAIN.
[2020-12-28 01:18] VITALS: BP 117/53
[2020-12-28 06:21] VITALS: BP 110/48
[2020-12-28 06:44] LABS: BASOPHILS 0.1 % (0-2); EOSINOPHILS 1.6 % (0-7); HEMATOCRIT 31.3 % (36.0-48.0); HEMOGLOBIN 9.5 g/dL (12-16); IMMATURE GRANULOCYTES 0.5 % (0-5); LYMPHOCYTE ABS# 1.22 10x3/uL (1.18-3.74); MCH 26.6 pg (26.0-34.0); MCHC 30.4 g/dL (31.0-37.0); MCV 87.7 fL (80.0-100.0); MEAN PLATELET VOLUME 9.2 fL (7.4-10.4); MONOCYTES 5.7 % (2-11); NEUTROPHIL ABS# 9.02 10x3/uL (1.56-6.13); NEUTROPHILS 81.1 % (40-80); PLATELET COUNT 422 10x3/uL (130-400); RBC 3.57 10x6/uL (4.00-5.40); RDW 15.6 % (11.5-14.5); WBC 11.1 10x3/uL (4.8-10.8)
[2020-12-28 07:29] LABS: ALBUMIN 2.5 g/dL (3.4-5.0); ALKALINE PHOSPHATASE 105 U/L (30-120); ALT (SGPT) 13 U/L (10-68); CALC OSMOLALITY 271 mosm/kg (275-300); CALCIUM 9.1 mg/dL (8.5-10.1); CARBON DIOXIDE 28.9 mmol/L (21.0-32.0); CHLORIDE - SERUM 98 mmol/L (98-107); CREATININE - SERUM 0.6 mg/dL (0.6-1.3); GLUCOSE 113 mg/dL (74-106); POTASSIUM - SERUM 4.4 mmol/L (3.5-5.1); PROTEIN - SERUM 7.1 g/dL (6.4-8.2); SODIUM 134 mmol/L (136-145); UREA NITROGEN 20 mg/dL (7-18); eGFR NON AFRICAN AMERICAN > 90 mL/min (90-120)
--- NOTE | 2020-12-28 08:00 | NUR ---
PT AWAKE, ALERT, AND ORIENTED. STATES HER WRIST HURTS. ICE PACK WAS PROVIDED. STATED WHEN SHE COULD HAVE HER NEXT PAIN PILL. RIGHT WRIST HAS COMPLETE RANGE OF MOTION. NOT SWOLLEN OR RED. CL IN REACH. WCTM
[2020-12-28 09:11] VITALS: BP 111/56
--- NOTE | 2020-12-28 11:10 | NUR ---
PT HAD LARGE BM THAT WAS LOOSE. AND URINATED. PT CLEANED UP. FRESH LINENS SUPPLIED. PT SUCTIONED. CL, PHONE, TISSUES, AND TRASH CAN WITHIN REACH. PT RECEIVED SOME GREEN SWABS KIT FOR MOUTH CARE. NO FURTHER NEEDS AT THIS TIME. JAROCHO
[2020-12-28 13:20] VITALS: BP 113/66
[2020-12-28 18:27] VITALS: BP 123/48
--- NOTE | 2020-12-28 19:00 | NUR ---
BEDSIDE REPORT RECEIVED AND CARE OF PT ASSUMED. PT LYING IN HIGH MCNEIL'S POSITION WATCHING TV. IV TO LEFT FA SALINE LOCKED. PEG TUBE PATENT WITH OSMOLITE 1.5 INFUSING VIA FEEDING PUMP AT 40 ML/HR. TRACH COLLER IN PLACE AT 35% O2. WILL MONITOR FOR NEEDS.
--- NOTE | 2020-12-28 20:06 | NUR ---
HS MEDICATIONS GIVEN VIA PEG TUBE. FLUSHED WITH 30 ML WATER BEFORE AND AFTER MEDS.
--- NOTE | 2020-12-28 21:52 | NUR ---
GAVE NORCO VIA PEG TUBE PER PT REQUEST FOR ACHING CHRONIC BACK PAIN AT LEVEL 6/10. ALSO GAVE ROBITUSSIN COUGH MED EARLY, TO NOT HAVE TO WAKE PT IN AN HOUR. WILL CONTINUE TO MONITOR FOR NEEDS.
[2020-12-28 22:08] VITALS: BP 128/47
[2020-12-29 01:24] VITALS: BP 121/50
[2020-12-29 05:54] VITALS: BP 111/56
[2020-12-29 06:21] LABS: BASOPHILS 0.3 % (0-2); EOSINOPHILS 4.7 % (0-7); HEMATOCRIT 30.3 % (36.0-48.0); HEMOGLOBIN 9.3 g/dL (12-16); IMMATURE GRANULOCYTES 0.5 % (0-5); LYMPHOCYTE ABS# 1.52 10x3/uL (1.18-3.74); LYMPHOCYTES 15.4 % (15-50); MCH 26.5 pg (26.0-34.0); MCHC 30.7 g/dL (31.0-37.0); MCV 86.3 fL (80.0-100.0); MEAN PLATELET VOLUME 9.1 fL (7.4-10.4); MONOCYTES 6.8 % (2-11); NEUTROPHIL ABS# 7.15 10x3/uL (1.56-6.13); NEUTROPHILS 72.3 % (40-80); PLATELET COUNT 399 10x3/uL (130-400); RBC 3.51 10x6/uL (4.00-5.40); WBC 9.9 10x3/uL (4.8-10.8)
--- NOTE | 2020-12-29 08:22 | NUR ---
SHIFT ASSESSMENT COMPLETE. PT HAD URINATED AND HAD A BM THAT WAS LOOSE AND LARGE. LINENS CHANGED. PT REPOSITIONED. CL IN REACH. PHONE IN REACH. WCTM
[2020-12-29 09:42] VITALS: BP 104/35
--- NOTE | 2020-12-29 13:53 | NUR ---
REFUSED PT AND NSG PROSIMED TO GO TO CHAIR TOMORROW
[2020-12-29 14:35] VITALS: BP 106/37
[2020-12-29 18:35] VITALS: BP 109/42
--- NOTE | 2020-12-29 19:00 | NUR ---
BEDSIDE REPORT RECEIVED AND CARE OF PT ASSUMED. PT LYING IN MID MCNEIL'S POSITION WATCHING TV. IV TO LEFT FA SALINE LOCKED. PEG TUBE PATENT WITH OSMOLITE 1.5 INFUSING VIA FEEDING PUMP AT 40 ML/HR. TRACH COLLAR IN PLACE AT 35% OXYGEN. WILL MONITOR FOR NEEDS.
[2020-12-29 20:00] VITALS: BP 111/34
--- NOTE | 2020-12-29 20:14 | NUR ---
HS MEDICATIONS GIVEN VIA PEG TUBE TO INCLUDE TYLENOL 650 MG PER PT REQUEST FOR BACK PAIN. PEG TUBE FLUSHED WITH 30 MLS WATER BEFORE AND AFTER MEDS.
--- NOTE | 2020-12-29 21:28 | NUR ---
PAGED RT PER PT REQUEST TO BE SUCTIONED.
--- NOTE | 2020-12-29 22:30 | NUR ---
PT REQUESTING TO BE SUCTIONED AGAIN...VERY CONGESTED. SUCTIONED USING STERILE TECHNIQUE USING 18 GUAGE SUCTION CATHETER.
[2020-12-30] VITALS: BP 143/39
--- NOTE | 2020-12-30 00:34 | NUR ---
PT VERY CONGESTED AGAIN...SUCTIONED TRACH USING STERILE TECHNIQUE. REPLACED GAUZE AROUND TRACH. PT BREATHING EASIER NOW.
--- NOTE | 2020-12-30 01:52 | NUR ---
PT VOMITED APPROX 150 ML OF PHLEM AND FORMULA. PLACED FEEDINGS ON HOLD. RESIDUAL AT 45MLS AT THIS CHECK. SUCTIONED TRACH AND CHANGED GAUZE DRESSING. GAVE PT YANKERS TO SUCTION MOUTH, SHE IS STILL COUGHING UP PHLEM. ALL LINENS AND GOWN CHANGED.
--- NOTE | 2020-12-30 02:10 | NUR ---
SPO2 DROPPING INTO THE 70'S. CALLED RESPIRATORY. PAGED DR OBREGON AND RECEIVED ORDER TO DO CHEST XRAY NOW; GIVE NEBULIZER TX; INCREASE 02 NEEDED; AND CONTINUE TO HOLD FEEDINGS. RESPIRATORY AT BEDSIDE. RADIOLOGY CALLED.
[2020-12-30 04:00] VITALS: BP 120/69
[2020-12-30 06:15] LABS: ALBUMIN 2.7 g/dL (3.4-5.0); ALKALINE PHOSPHATASE 125 U/L (30-120); ALT (SGPT) 16 U/L (10-68); BILIRUBIN - TOTAL 0.11 mg/dL (0.2-1.3); CALC OSMOLALITY 265 mosm/kg (275-300); CALCIUM 9.5 mg/dL (8.5-10.1); CHLORIDE - SERUM 94 mmol/L (98-107); GLUCOSE 149 mg/dL (74-106); POTASSIUM - SERUM 4.2 mmol/L (3.5-5.1); PROTEIN - SERUM 7.9 g/dL (6.4-8.2); SODIUM 130 mmol/L (136-145); UREA NITROGEN 17 mg/dL (7-18); eGFR NON AFRICAN AMERICAN 75 mL/min (90-120)
[2020-12-30 06:16] LABS: CREATININE - SERUM 0.8 mg/dL (0.6-1.3)
[2020-12-30 06:19] LABS: HEMATOCRIT 34.5 % (36.0-48.0); HEMOGLOBIN 10.7 g/dL (12-16); LYMPHOCYTE ABS# 0.64 10x3/uL (1.18-3.74); MCH 26.8 pg (26.0-34.0); MCV 86.5 fL (80.0-100.0); MEAN PLATELET VOLUME 9.3 fL (7.4-10.4); NEUTROPHIL ABS# 19.01 10x3/uL (1.56-6.13); PLATELET COUNT 514 10x3/uL (130-400); RBC 3.99 10x6/uL (4.00-5.40); RDW 15.8 % (11.5-14.5); WBC 20.8 10x3/uL (4.8-10.8)
--- NOTE | 2020-12-30 06:43 | NUR ---
FOUND PATIENT RESTING COMFORTABLY IN BED WITH EYES CLOSED. SPO2 WS 97%. DECREASED FIO2 TO 70% FORM 100%. SPO2 REMAINED IN MID 90'S. WILL CONTINUE TO MONITOR AND WEAN FIO2 TOLERATED. PT STATED SHE DID NOT NEED SUCTIONING AT THIS TIME.
--- NOTE | 2020-12-30 07:25 | NUR ---
RECIEVED BEDSIDE REPORT. IN BED AWAKE. DENIES NEEDS AT THIS TIME. FREE FROM SIGNS OF DISTRESS. BED LOW POSITION, CALL LIGHT IN REACH. WILL CONITNUE TO MONITOR.
[2020-12-30 08:00] VITALS: BP 132/70
--- NOTE | 2020-12-30 12:01 | MORECARE ---
CASE MANAGEMENT DISCHARGE SUMMARY PATIENT: CHON LUI UNIT: [id number] ADM DATE: 12/21/20 AGE: 70 : 50 SEX: F ROOM/BED: D.2224 AUTHOR: MONET,DOC PHYSICIAN: REFERRING PHYSICIAN: CHERELLE NAVARRETE MD DATE OF SERVICE: 12/30/20 Case Management Discharge Planning Summary COMMENTS ENTERED DATE: 12/30/20 11:58 CT COMMENT TYPE: Discharge Planning REVIEWER: Magaly Duran PER DR GÓMEZ THE PATIENT NEEDS TO GO TO ANOTHER PLACE, I SPOKE WITH JANIYA AT [facility] LAST WEEK AND SENT THE REFERRAL OVER TODAY. DCP REVIEW SUMMARY ANTICIPATED D/C DATE: EXPECTED LOS : CASE STATUS: DCP Initiated INITIAL REVIEW: 12/21/2020 INITIAL REVIEWER: Magaly Duran FINAL DISCHARGE DISPOSITION: : FINAL REVIEWER: FINAL REVIEW DATE: DCP Focus Questions & Answers QUESTION: ANSWER : PATIENT: CHON LUI ENCOUNTER: [id number] MEDICAL RECORD#: [id number] ADMISSION DATE: 12/21/2020 DISCHARGE DATE: ATTENDING MD: CHERELLE LOERA : AGE: 70 MARITAL STATUS: W DC PLAN ID: [id number] FACILITY: [facility] PRINTED ON: 12/30/20 12:01 CT All edits/amendments must be made on the electronic document DICTATION DATE: 12/30/20 120 NURSE EMERGENCY ROOM: NAHUN 12/30/20 120 RPT#: [id number] DC DATE: STATUS: ADM IN [facility] [address] [place] [address] END OF REPORT
[2020-12-30 12:37] LABS: LYMPHOCYTES 5 % (15-50); MONOCYTES 7 % (2-11); NEUTROPHILS 82 % (40-80); PLATELET ESTIMATE INCREASED
[2020-12-30 12:38] LABS: ANISOCYTOSIS OCC; ROULEAUX OCC
--- NOTE | 2020-12-30 13:38 | NUR ---
UP IN A CHAIR FOR A HOUR MOD ASSIT TO AND BACK TO CHAIR
--- NOTE | 2020-12-30 14:40 | NUR ---
Nutrition reassessment: TF on hold due to pt with nausea, vomiting. Labs reivewed Na, Cl low; Glucose fair to good control +BM, loose now after Miralax Pt with PEG tube and usual TF regimen if Osmolite 1.5 mary @ 40 ml/hr with 100 ml H2O flush q 4 hours. Wt: 124# Estimated nutritional needs remains the same as initial assessment on 12/23/20 Nutrition diagnosis: Inadequate energy intake R/T nausea, vomiting AEB pts TF turned off at this time. Nutrition goals: - TF will be tolerated at goal rate of 40 ml/hr - Will meet estimated fluid needs without fluid overload - Stable dry wt Nutrition interventions: Recommend restarting Osmolite 1.5 amry @ goal rate of 40 ml/hr and elevated HOB to > 40 degrees while TF infusing. Please weight pt daily RDN follow-up: 01/02/21
--- NOTE | 2020-12-30 14:45 | MORECARE ---
CASE MANAGEMENT DISCHARGE SUMMARY PATIENT: CHON LUI UNIT: [id number] ADM DATE: 12/21/20 AGE: 70 : 50 SEX: F ROOM/BED: D.2224 AUTHOR: MONET,DOC PHYSICIAN: REFERRING PHYSICIAN: CHERELLE NAVARRETE MD DATE OF SERVICE: 12/30/20 Case Management Discharge Planning Summary COMMENTS ENTERED DATE: 12/30/20 14:32 CT COMMENT TYPE: Discharge Planning REVIEWER: Magaly Duran [facility] has clinically denied the patient. Will try another facility. ENTERED DATE: 12/30/20 11:58 CT COMMENT TYPE: Discharge Planning REVIEWER: Magaly Duran PER DR GÓMEZ THE PATIENT NEEDS TO GO TO ANOTHER PLACE, I SPOKE WITH JANIYA AT [facility] LAST WEEK AND SENT THE REFERRAL OVER TODAY. DCP REVIEW SUMMARY ANTICIPATED D/C DATE: EXPECTED LOS : CASE STATUS: DCP Initiated INITIAL REVIEW: 12/21/2020 INITIAL REVIEWER: Magaly Duran FINAL DISCHARGE DISPOSITION: : FINAL REVIEWER: FINAL REVIEW DATE: DCP Focus Questions & Answers QUESTION: ANSWER : PATIENT: CHON LUI ENCOUNTER: [id number] MEDICAL RECORD#: [id number] ADMISSION DATE: 12/21/2020 DISCHARGE DATE: ATTENDING MD: CHERELLE LOERA : AGE: 70 MARITAL STATUS: W DC PLAN ID: [id number] FACILITY: [facility] PRINTED ON: 12/30/20 14:44 CT All edits/amendments must be made on the electronic document DICTATION DATE: 12/30/201443 PORCELAIN TECHNICIAN: NAHUN 12/30/201443 RPT#: [id number] DC DATE: STATUS: ADM IN [facility] [address] [place] [address] END OF REPORT
--- NOTE | 2020-12-30 18:55 | NUR ---
PATIENT RESTING IN BED WITH NO S/S OF DISTRESS AND DENIES NEEDS AT THIS TIME. BED IN LOWEST POSITION AND CALL LIGHT IN REACH. ENCOURAGED PATIENT TO CALL WITH NEEDS.
[2020-12-30 19:56] VITALS: BP 118/41
--- NOTE | 2020-12-30 21:34 | NUR ---
ADMINISTERED MEDS PER ORDERS. PATIENT YA WELL. ENCOURAGED PATIENT TO CALL WITH NEEDS.
[2020-12-31 03:29] VITALS: BP 110/45
--- NOTE | 2020-12-31 05:15 | NUR ---
CHANGED FEEDING TUBE BAGS
--- NOTE | 2020-12-31 07:33 | NUR ---
ALERT AND ORIENTED. ASSESSMENT COMPLETE. DENIES NEEDS. BED LOW. CALL COBB AND PERSONAL ITEMS IN REACH. WILL CONTINUE TO MONITOR.
--- NOTE | 2020-12-31 09:40 | NUR ---
PATIENT CALLED TO BE SUCTIONED. SUCTION PERFORMED. LITTLE OUPUT WITH SUCTION. PATIENT SAT 84%. PULLED UP IN BED. STILL SAT 85%. RT CALLED.
--- NOTE | 2020-12-31 09:50 | NUR ---
SUCTION PERFORMED AGAIN. FIO2 INCREASED TO 100%. RT IN ROOM. PATIENT SAT 86%. ON CONTINUOUS O2 MONITOR.
--- NOTE | 2020-12-31 10:00 | NUR ---
SCHEDULED NEB GIVEN BY RT. LAVAGE PERFORMED BY RT. MUCOUS PLUG BROKE LOOSE.
--- NOTE | 2020-12-31 10:04 | NUR ---
PATIENT SAT 90%. LEFT FIO2 @ 100% PER RT. WILL CONTINUE TO MONITOR. NEB TREATMENT STILL GOING. RT TO COME BACK TO ROOM AFTER TREATMENT.
--- NOTE | 2020-12-31 10:07 | NUR ---
WAS CALLED TO PATIENTS ROOM DUE TO DROPPING SPO2. PT APPEARED TACHYPNEIC. FIO2 WAS 100%. LAVAGED WITH NORMAL SALINE AND SUCTIONED PATIENT. SPO2 INCREASED TO LOW 90'S. UPDRAFT GIVEN.
[2020-12-31 10:12] VITALS: BP 107/62
--- NOTE | 2020-12-31 11:45 | NUR ---
PATIENT SUCTIONED BY RT PER REQUEST.
--- NOTE | 2020-12-31 12:00 | NUR ---
PATIENT REQUESTING TO BE SUCTIONED AGAIN. SPOKE WITH RT GAMING WHO STATES JUST SUCTIONED PATIENT BUT IS COMING TO FLOOR TO GIVE BREATHING TREATMENT AND WILL SEE PATIENT.
--- NOTE | 2020-12-31 12:25 | NUR ---
PATIENT SUCTIONED PER REQUEST. DENIES FURTHER NEEDS. O2 SAT 94%.
[2020-12-31 12:29] VITALS: BP 114/41
[2020-12-31 16:59] VITALS: BP 107/62
--- NOTE | 2020-12-31 17:44 | NUR ---
PATIENT STATES WANTS TO SEE RT. RT NOTIFIED AND ON FLOOR.
[2020-12-31 20:00] VITALS: BP 113/50
[2021-01-01] VITALS: BP 126/40
--- NOTE | 2021-01-01 03:32 | NUR ---
PATIENT HAD PAIN MANAGED WITH THE PRESCRIBED PAIN MEDICATION, TUBE FEEDING LINE AND BAGS CHANGED, SHE APPEARESTO BE RESTING WELL, SHE IS CURRENTLY RESTING IN BED WITH HER EYES CLOSED.
[2021-01-01 04:00] VITALS: BP 106/43
--- NOTE | 2021-01-01 07:19 | NUR ---
RECIEVED BEDSIDE REPORT. RESPIRATORY AT BEDSIDE PERFORMING BREATHING TREATMENT. DENIES NEEDS AT THIS TIME. BED LOW POSITION, CALL LIGHT IN REACH. FREE FROM SIGNS OF DISTRESS. WILL CONTINUE TO MONITOR.
[2021-01-01 08:25] VITALS: BP 108/54
[2021-01-01 12:58] VITALS: BP 126/66
[2021-01-01 13:09] LABS: BASOPHILS 0.4 % (0-2); EOSINOPHILS 2.5 % (0-7); HEMATOCRIT 28.5 % (36.0-48.0); HEMOGLOBIN 9.1 g/dL (12-16); MCH 26.7 pg (26.0-34.0); MCHC 32.1 g/dL (31.0-37.0); MCV 83.1 fL (80.0-100.0); MEAN PLATELET VOLUME 6.7 fL (7.4-10.4); MONOCYTES 6.3 % (2-11); NEUTROPHILS 79.8 % (40-80); RBC 3.43 10x6/uL (4.00-5.40); RDW 16.9 % (11.5-14.5); WBC 10.7 10x3/uL (4.8-10.8)
[2021-01-01 13:12] LABS: PLATELET COUNT 404 10x3/uL (130-400)
[2021-01-01 13:30] LABS: ALBUMIN 2.4 g/dL (3.4-5.0); ALKALINE PHOSPHATASE 116 U/L (30-120); ALT (SGPT) 17 U/L (10-68); BILIRUBIN - TOTAL 0.09 mg/dL (0.2-1.3); CALC OSMOLALITY 269 mosm/kg (275-300); CALCIUM 9.2 mg/dL (8.5-10.1); CARBON DIOXIDE 36.1 mmol/L (21.0-32.0); CHLORIDE - SERUM 95 mmol/L (98-107); CREATININE - SERUM 0.5 mg/dL (0.6-1.3); GLUCOSE 133 mg/dL (74-106); POTASSIUM - SERUM 4.9 mmol/L (3.5-5.1); PROTEIN - SERUM 7.4 g/dL (6.4-8.2); SODIUM 133 mmol/L (136-145); UREA NITROGEN 19 mg/dL (7-18); eGFR NON AFRICAN AMERICAN > 90 mL/min (90-120)
--- NOTE | 2021-01-01 13:49 | MORECARE ---
CASE MANAGEMENT DISCHARGE SUMMARY PATIENT: CHON LUI UNIT: [id number] ADM DATE: 12/21/20 AGE: 70 : 50 SEX: F ROOM/BED: D.2224 AUTHOR: MONET,DOC PHYSICIAN: REFERRING PHYSICIAN: CHERELLE NAVARRETE MD DATE OF SERVICE: 01/01/21 Case Management Discharge Planning Summary COMMENTS ENTERED DATE: 01/01/21 13:35 CT COMMENT TYPE: Discharge Planning REVIEWER: Ida WHITE WITH [facility] HAS VISITED WITH PATIENT AND FAMILY TODAY. I AM FAXING CLINICALS TO THE [facility] AND THEY ARE CONSIDERING TAKING HER. I AM WAITING CALL BACK FROM THEM. SHE WILL NEED TO BE WEANED TO LESS THAN 30% OXYGEN BEFORE SHE COULD DISCHARGE TO NURSING FACILITY. ENTERED DATE: 12/30/20 14:32 CT COMMENT TYPE: Discharge Planning REVIEWER: Magaly Duran [facility] has clinically denied the patient. Will try another facility. ENTERED DATE: 12/30/20 11:58 CT COMMENT TYPE: Discharge Planning REVIEWER: Magaly Duran PER DR GÓMEZ THE PATIENT NEEDS TO GO TO ANOTHER PLACE, I SPOKE WITH JANIYA AT [facility] LAST WEEK AND SENT THE REFERRAL OVER TODAY. DCP REVIEW SUMMARY ANTICIPATED D/C DATE: EXPECTED LOS : CASE STATUS: DCP Initiated INITIAL REVIEW: 12/21/2020 INITIAL REVIEWER: Magaly Duran FINAL DISCHARGE DISPOSITION: : FINAL REVIEWER: FINAL REVIEW DATE: DCP Focus Questions & Answers QUESTION: ANSWER : PATIENT: CHON LUI ENCOUNTER: [id number] MEDICAL RECORD#: [id number] ADMISSION DATE: 12/21/2020 DISCHARGE DATE: ATTENDING MD: CHERELLE LOERA : AGE: 70 MARITAL STATUS: W DC PLAN ID: [id number] FACILITY: [facility] PRINTED ON: 01/01/21 13:49 CT All edits/amendments must be made on the electronic document DICTATION DATE: 01/01/211348 PIPE STRIPPER: NAHUN 01/01/211348 RPT#: [id number] DC DATE: STATUS: ADM IN [facility] [address] [place] [address] END OF REPORT
--- NOTE | 2021-01-01 14:17 | MORECARE ---
CASE MANAGEMENT DISCHARGE SUMMARY PATIENT: CHON LUI UNIT: [id number] ADM DATE: 12/21/20 AGE: 70 : 50 SEX: F ROOM/BED: D.2224 AUTHOR: MONET,DOC PHYSICIAN: REFERRING PHYSICIAN: CHERELLE NAVARRETE MD DATE OF SERVICE: 01/01/21 Case Management Discharge Planning Summary COMMENTS ENTERED DATE: 01/01/21 13:35 CT COMMENT TYPE: Discharge Planning REVIEWER: Ida WHITE WITH [facility] HAS VISITED WITH PATIENT AND FAMILY TODAY. I AM FAXING CLINICALS TO THE [facility] AND THEY ARE CONSIDERING TAKING HER. I AM WAITING CALL BACK FROM THEM. SHE WILL NEED TO BE WEANED TO LESS THAN 30% OXYGEN BEFORE SHE COULD DISCHARGE TO NURSING FACILITY. ENTERED DATE: 12/30/20 14:32 CT COMMENT TYPE: Discharge Planning REVIEWER: Magaly Duran [facility] has clinically denied the patient. Will try another facility. ENTERED DATE: 12/30/20 11:58 CT COMMENT TYPE: Discharge Planning REVIEWER: Magaly Duran PER DR GÓMEZ THE PATIENT NEEDS TO GO TO ANOTHER PLACE, I SPOKE WITH JANIYA AT [facility] LAST WEEK AND SENT THE REFERRAL OVER TODAY. DCP REVIEW SUMMARY ANTICIPATED D/C DATE: EXPECTED LOS : CASE STATUS: DCP Initiated INITIAL REVIEW: 12/21/2020 INITIAL REVIEWER: Magaly Duran FINAL DISCHARGE DISPOSITION: : FINAL REVIEWER: FINAL REVIEW DATE: DCP Focus Questions & Answers DCP Screen QUESTION: ANSWER High Risk Factors: : Polypharmacy (greater than 10 meds) DCP Evaluation QUESTION: ANSWER Patient's ability to cope with chronic illness : d. No chronic illness Would patient like to participate in any Care Coordination programs (if applicable): : Not applicable Mental health screen: : No mental health history DCP Re-evaluation QUESTION: ANSWER Would patient like to participate in any Care Coordination programs (if applicable): : Not applicable PATIENT: CHON LUI ENCOUNTER: [id number] MEDICAL RECORD#: [id number] ADMISSION DATE: 12/21/2020 DISCHARGE DATE: ATTENDING MD: CHERELLE LOERA : AGE: 70 MARITAL STATUS: W DC PLAN ID: [id number] FACILITY: [facility] PRINTED ON: 01/01/21 14:17 CT All edits/amendments must be made on the electronic document DICTATION DATE: 01/01/211416 ETHNOLOGY PROFESSOR: NAHUN 01/01/211416 RPT#: [id number] DC DATE: STATUS: ADM IN [facility] [address] [place] [address] END OF REPORT
--- NOTE | 2021-01-01 14:30 | MORECARE ---
CASE MANAGEMENT DISCHARGE SUMMARY PATIENT: CHON LUI UNIT: [id number] ADM DATE: 12/21/20 AGE: 70 : 50 SEX: F ROOM/BED: D.2224 AUTHOR: MONET,DOC PHYSICIAN: REFERRING PHYSICIAN: CHERELLE NAVARRETE MD DATE OF SERVICE: 01/01/21 Case Management Discharge Planning Summary COMMENTS ENTERED DATE: 01/01/21 13:35 CT COMMENT TYPE: Discharge Planning REVIEWER: Ida WHITE WITH [facility] HAS VISITED WITH PATIENT AND FAMILY TODAY. I AM FAXING CLINICALS TO THE [facility] AND THEY ARE CONSIDERING TAKING HER. I AM WAITING CALL BACK FROM THEM. SHE WILL NEED TO BE WEANED TO LESS THAN 30% OXYGEN BEFORE SHE COULD DISCHARGE TO NURSING FACILITY. ENTERED DATE: 12/30/20 14:32 CT COMMENT TYPE: Discharge Planning REVIEWER: Magaly Duran [facility] has clinically denied the patient. Will try another facility. ENTERED DATE: 12/30/20 11:58 CT COMMENT TYPE: Discharge Planning REVIEWER: Magaly Duran PER DR GÓMEZ THE PATIENT NEEDS TO GO TO ANOTHER PLACE, I SPOKE WITH JANIYA AT [facility] LAST WEEK AND SENT THE REFERRAL OVER TODAY. DCP REVIEW SUMMARY ANTICIPATED D/C DATE: EXPECTED LOS : CASE STATUS: DCP Initiated INITIAL REVIEW: 12/21/2020 INITIAL REVIEWER: Magaly Duran FINAL DISCHARGE DISPOSITION: : FINAL REVIEWER: FINAL REVIEW DATE: DCP Focus Questions & Answers DCP Screen QUESTION: ANSWER High Risk Factors: : Polypharmacy (greater than 10 meds) DCP Evaluation QUESTION: ANSWER Patient's ability to cope with chronic illness : d. No chronic illness Patient and/or caregiver agree upon recommended discharge plan? : Yes Patient's current cognitive status: : *Oriented to person, place, situation, time and present Functional screen assessment: : Unable to manage ADLs without immediate ongoing assistance Physical Status: : Total care dependent Physical Status: : Mobility impaired Living Arrangements: : Jail Facility Other Equipment comments: : TRACH,PEG, RESP VEST Baseline cognitive status: : *Oriented to person, place, situation, time and present Comments: : PULMONARY REQUESTS PATIENT TO GO TO A DIFFERENT NURSING FACILITY . THE [facility] IS LOOKING AT FOR THEIR FACILITY. Facility / Agency name and contact information from Question 3 (if applicable): : [facility] Would patient like to participate in any Care Coordination programs (if applicable): : Not applicable Mental health screen: : No mental health history DCP Re-evaluation QUESTION: ANSWER Would patient like to participate in any Care Coordination programs (if applicable): : Not applicable PATIENT: CHON LUI ENCOUNTER: [id number] MEDICAL RECORD#: [id number] ADMISSION DATE: 12/21/2020 DISCHARGE DATE: ATTENDING MD: CHERELLE LOERA : AGE: 70 MARITAL STATUS: W DC PLAN ID: [id number] FACILITY: [facility] PRINTED ON: 01/01/21 14:29 CT All edits/amendments must be made on the electronic document DICTATION DATE: 01/01/211428 AGRICULTURE TEACHER: NAHUN 01/01/211428 RPT#: [id number] DC DATE: STATUS: ADM IN [facility] [address] [place] [address] END OF REPORT
--- NOTE | 2021-01-01 14:59 | NUR ---
PATIENT REFUSED ALL MOBILITY.
[2021-01-01 17:47] VITALS: BP 117/67
[2021-01-01 20:00] VITALS: BP 100/42
--- NOTE | 2021-01-02 03:20 | NUR ---
PATIENT HAD PAIN MANAGED WITH THE PRESCRIBED PAIN MEDICATIONS, SHE RESTED WELL SO FAR, SHE IS CURRENTLY RESTING IN BED WITH HIS EYES CLOSED.
[2021-01-02 03:59] VITALS: BP 107/46
[2021-01-02 08:25] VITALS: BP 109/47
--- NOTE | 2021-01-02 10:08 | NUR ---
UP TO [place] CHAIR AT THIS TIME WITH CONTINUOUS O2 IN USE WITH O2 SAT AT 96%. C/L IN REACH AT BEDSIDE.
--- NOTE | 2021-01-02 11:28 | NUR ---
I have reviewed this patient and I concur with the Shift Assessment completed by the Licensed Practical Nurse today this shift.
--- NOTE | 2021-01-02 11:44 | NUR ---
PT OUT OF BED AT 1000 AM AND PLACED BACK TO BED AT 1200 NOON. WAS CONSTANTLY ON THE LIGHT WANTIING TO GO BACK TO BED. C/L IN REACH AT BEDSIDE.
[2021-01-02 13:01] VITALS: BP 111/43
--- NOTE | 2021-01-02 13:25 | NUR ---
PATIENT WAS IN CHAIR AND PUT BTB WITH NSG.
--- NOTE | 2021-01-02 14:00 | NUR ---
Nutrition follow-up: Pt NPO Trach/PEG tube with Osmolite 1.5 mary infusing @ goal rate of 40 ml/hr Labs reviewed; Last Wt: 124# Pt is currently tolerating TF at goal rate Recommend: Please get weights 2 x/week Follow-up: 01/07/21
[2021-01-02 17:18] VITALS: BP 110/41
[2021-01-02 20:00] VITALS: BP 115/52
[2021-01-03] VITALS: BP 122/40
--- NOTE | 2021-01-03 03:54 | NUR ---
ASSESSED AT THE BEGINNING OF THE SHIFT. PT IS ALERT AND ORIENTED, ABLE TO VERBALIZE NEEDS WITH COVERING OF TRACH OPENING. SHE CONTINUES TO HAVE OSMOLYTE 1.5 AT 40 CC HR TO HER G-TUBE. NO COMPLAINTS HAVE BEEN VOICED. WE HAVE USED HER NYSTOP POWDER ON HER SHAVON AREA AND HER COCCYX. THEY ARE IMPROVED AND THERE IS LESS REDNESS. WE HAVE THE HOB UP AT 36 DEGREES. ATIVAN WAS GIVEN AND SHE HAS BEEN MORE ABLE TO REST AFTER THAT. HER PAIN MED WAS GIVEN AT THE BEGINNING OF THE SHIFT. SCD'S ARE OFF AT THIS TIME PER HER REQUEST. WE ARE CHANGING HER EACH TIME SHE IS INCONTINENT. OF URINE OR STOOL.
[2021-01-03 04:00] VITALS: BP 115/48
--- NOTE | 2021-01-03 07:23 | NUR ---
RECIEVED BEDSIDE REPORT. IN BED SLEEPING, AROUSES TO VOICE. DENIES NEEDS. TRACH COLLAR AT 35%. TUBE FEED PER ORDERS. BED LOW POSITION, CALL LIGHT IN REACH. WILL CONTINUE TO MONITOR.
[2021-01-03 08:15] VITALS: BP 141/54
--- NOTE | 2021-01-03 10:13 | NUR ---
CHECKED ON PATIENT. CLEANED UP SHEETS AND PADS. SUCTIONED PATIENT PER REQUEST. OXYGEN AT 95%. WILL CONTINUE TO MONITOR.
[2021-01-03 11:43] VITALS: BP 142/55
--- NOTE | 2021-01-03 14:35 | NUR ---
patient refused pt and nsg states sitting in a chiar hurts her back to much and wont go to the chair
[2021-01-03 16:05] VITALS: BP 111/65
[2021-01-03 22:09] VITALS: BP 107/44
--- NOTE | 2021-01-04 03:04 | NUR ---
I have reviewed this patient and I concur with the Shift Assessment completed by the Licensed Practical Nurse today this shift.
[2021-01-04 04:58] VITALS: BP 157/68
[2021-01-04 06:06] LABS: EOSINOPHILS 6.1 % (0-7); HEMATOCRIT 29.2 % (36.0-48.0); HEMOGLOBIN 9.6 g/dL (12-16); LYMPHOCYTES 16.9 % (15-50); MCHC 32.9 g/dL (31.0-37.0); MCV 82.3 fL (80.0-100.0); MEAN PLATELET VOLUME 6.8 fL (7.4-10.4); MONOCYTES 8.2 % (2-11); NEUTROPHILS 67.8 % (40-80); RBC 3.55 10x6/uL (4.00-5.40); WBC 7.2 10x3/uL (4.8-10.8)
[2021-01-04 06:15] LABS: PLATELET COUNT 493 10x3/uL (130-400)
[2021-01-04 06:43] LABS: ALBUMIN 2.4 g/dL (3.4-5.0); ALKALINE PHOSPHATASE 97 U/L (30-120); ALT (SGPT) 16 U/L (10-68); BILIRUBIN - TOTAL 0.21 mg/dL (0.2-1.3); CALC OSMOLALITY 266 mosm/kg (275-300); CALCIUM 9.3 mg/dL (8.5-10.1); CARBON DIOXIDE 30.5 mmol/L (21.0-32.0); CHLORIDE - SERUM 96 mmol/L (98-107); CREATININE - SERUM 0.5 mg/dL (0.6-1.3); GLUCOSE 95 mg/dL (74-106); POTASSIUM - SERUM 4.1 mmol/L (3.5-5.1); PROTEIN - SERUM 7.3 g/dL (6.4-8.2); SODIUM 133 mmol/L (136-145); UREA NITROGEN 15 mg/dL (7-18); eGFR NON AFRICAN AMERICAN > 90 mL/min (90-120)
[2021-01-04 08:24] VITALS: BP 129/52
--- NOTE | 2021-01-04 08:25 | NUR ---
ROUSES TO VERBAL STIMULATION. ORIENTED X3. NO C/O AT THIS TIME. LUNGS ARE CLEAR BIALTERALLY, OCCASSIONAL DRY COUGH NOTED. TRACH PATENT WITH 35% O2. SKIN IS INTACT WITHOUT REDNESS. PEG TUBE PATENT WITH OSMOLYTE 1.5 AT 40 CC HOUR VIA PUMP. DENIES NEEDS. SL TO LEFT AC IS PATENT WITHOUT REDNESS AT INSERTION SITE.
--- NOTE | 2021-01-04 09:30 | NUR ---
INCONTINENT OF URINE. SKIN CARE PER STAFF. LINENS CHANGED. MEDS VIA PEG WITHOUT DIFFICULTY.
--- NOTE | 2021-01-04 11:30 | NUR ---
UP TO CHIAR AT BEDSIDE WITH PT MIN ASSIST OF 2. WILL MONITOR.
[2021-01-04 13:02] VITALS: BP 105/48
--- NOTE | 2021-01-04 13:30 | NUR ---
BACK TO BED WITH 2 PERSON MOD ASSIST. POSITIONED IN BED FOR COMFORT.
--- NOTE | 2021-01-04 13:30 | NUR ---
SUCTIONED PER STAFF.
--- NOTE | 2021-01-04 14:09 | NUR ---
PATIENT MOD ASST TO GET UP TO BEDSIDE. PATIENT MOD ASST TO STAND AND TO TRANSFER TO CHAIR. PATIENT DIDN'T TOLERATE SITTING UP LONG AND WANTED TO GO BACK TO BED ABOUT 30 MINS LATER, PER NSG.
--- NOTE | 2021-01-04 16:01 | NUR ---
RESTING QUIETLY IN BED AT THIS TIME. NO NEEDS NOTED.
[2021-01-04 17:44] VITALS: BP 142/52
[2021-01-04 20:00] VITALS: BP 126/49
[2021-01-05] VITALS: BP 129/54
[2021-01-05 04:00] VITALS: BP 98/64
[2021-01-05 08:50] VITALS: BP 122/54
--- NOTE | 2021-01-05 09:00 | NUR ---
ASSESSMEN PER FLOW SHEET. PATIENT IS WITHOUT DISTRESS.SHE HAS BEEN SUCTIONED THIS AM PER RT. SHE IS WITHOUT DISTRESS.02 12 LITERS VIA TRACHE COLLAR, SATS 94-95%.MONITOR FOR NEEDS
--- NOTE | 2021-01-05 11:51 | NUR ---
ABSOLUTELY REFUSES TO GET OUT OF BED WITH PT.REFUSES TO SIT UP AT BEDSIDE WITH PT.
--- NOTE | 2021-01-05 11:54 | NUR ---
PATIENT REFUSED TO GO TO CHAIR, ALSO REFUSED TO SIT AT THE SIDE OF BED. TRIED TO GET PATIENT TO PARTICIPATE BUT SHE WOULD NOT. PT CAN'T FORCE PATIENT TO CHAIR. INFORMED NSG WELL.
[2021-01-05 13:31] VITALS: BP 103/43
[2021-01-05 17:08] VITALS: BP 108/47
[2021-01-05 20:00] VITALS: BP 137/52
--- NOTE | 2021-01-05 21:32 | NUR ---
PT C/O BACK PAIN 01/23. GAVE 1 TAB NORCO-5 AND OTHER SCHEDULED MEDS PER PEG TUBE. NO RESIDUAL. ALSO, GAVE ATIVAN FOR ANXIETY. NO OTHER NEEDS. ASSESSMENT PER FLOW-SHEET. WILL CONTINUE TO MONITOR.
[2021-01-06] VITALS: BP 129/44
[2021-01-06 04:00] VITALS: BP 125/50
[2021-01-06 10:49] VITALS: BP 115/48
[2021-01-06 12:28] VITALS: BP 120/42
--- NOTE | 2021-01-06 15:51 | NUR ---
FEEDING BAGS CHANGED ON DEPUTY SHERIFF GENERALIST LAST NIGHT, TWO BOTTLES OF OSMOLITE 1.5 ADDED TO BAG AT THIS TIME
--- NOTE | 2021-01-06 17:31 | NUR ---
THREE DIMENSIONAL ART INSTRUCTOR IN WITH PT, PT SUCTIONED, TOLERATED WELL, PT REQUEST FOR PAIN MEDICATION MET
[2021-01-06 18:16] VITALS: BP 124/54
[2021-01-06 20:00] VITALS: BP 107/50
--- NOTE | 2021-01-06 20:30 | NUR ---
PT SITTING UP IN BED WITHOUT DISTRESS, AOX4. HS MEDS GIVEN VIA PEG AT THIS TIME. PT INCONTIENT OF URINE. LINENS CHANGED. DENIES OTHER NEEDS. CL IN REACH
[2021-01-07] VITALS: BP 125/44
[2021-01-07 04:00] VITALS: BP 127/48
--- NOTE | 2021-01-07 04:00 | NUR ---
PT INCONTINENT OF URINE, BED BATH GIVEN AT THIS TIME. LINENS CHANGED. PT TOLERATED WELL. DENIES OTHER NEEDS. CL IN REACH
--- NOTE | 2021-01-07 05:00 | NUR ---
MORNING MEDS GIVEN THROUGH PEG AT THIS TIME AND INCLUDED NORCO FOR PAIN UPON REQUEST. PT SUCTIONED AT THIS TIME. DENIES OTHER NEEDS. CL IN REACH
[2021-01-07 08:23] VITALS: BP 104/49
[2021-01-07 11:27] VITALS: BP 101/46
--- NOTE | 2021-01-07 13:19 | NUR ---
REFUSED PT 2 TIMES WILL TRY AGAIN TOMORROW
--- OUTSIDE RECORDS SUMMARY | 2021-01-07 14:56 | XMS Report ---
Demographics + + + | Address | [address] | | | [place], [place] | | | [address] | + + + | Home Phone | | + + + | Preferred Language | Unknown | + + + | Marital Status | | + + + | Judaism Affiliation | Unknown | + + + | Race | White | + + + | Ethnic Group | Not or | + + + Author + + + | Author | [facility], | | | [facility] | | | [place] | + + + | Organization | [facility], | | | [facility] | | | [place] | + + + | Address | [address] | | | [place] [address] | | | | + + + | Phone | [phone] | + + + Care Team Providers + +------+ + | Care Desulphuring Operator Name | Role | Phone | + +------+ + | DEEPALI MONTAÑO | 3 | [phone] | + +------+ + Reason for Referral Reason for Visit Malfunction of gastrostomy tube Assessment + + + + | Encounter Date | Assessment Date | Assessment | | | | | | | | | + + + + | 01/07/2021 | 01/07/2021 | | | | | | | | | I am going to refer | | | | to her to ENT to see | | | | if she is able to | | | | swallow. In that | | | | event we can just | | | | remove the | | | | gastrostomy tube. For | | | | right now we are | | | | going to focus on | | | | local wound care. | | | | | | | | | | | | | | | | | + + + + Patient Targets + + + + | Encounter Date | Instructions | Goals | | | | | | | | | + + + + | 01/07/2021 | | | | | | | | | | | + + + + Plan of Treatment + + + + + + + | Reminders | | Order | Submit | Provider | Details | | | | Date | Date | | | | | | | | | | | | | | | | | | | | | | | | | | | | | | | + + + + + + + | | | | | | | | | | | | Bairon | | | | | 1 10:00AM | | mar | | | | | | | MD Ilia | | | | | | | | | | Appointme | Office | | | | | | nts | Visit | | | | | | | | | | | | | | | | | | | | | | | | | | | | | | | | | | | | | | | | | | | | | | | | | | | | | | | | | | | | | + + + + + + + | | None | | | | | | | recorded. | | | | | | | | | | | | | | | | | | | | Lab | | | | | | | | | | | | | | | | | | | | | | | | | | | | | | | | | | | | | | | | | | | | | | | | | | | | | | | | | | | | | | + + + + + + + | | | | | | | | | | | | National | | | | | 1 | | Park | | | | | | 1 | Medical | | | | | | | Center, | | | Referral | general | | | 130 | | | | surgeon | | | Medical | | | | referral | | | [address], Hot | | | | | | | [place], | | | | | | | [place], | | | | | | | [address], [address] | | | | | | | (249) | | | | | | | [phone] | | | | | | | | | | | | | | | | | | | | | | | | | | | | | | + + + + + + + | | None | | | | | | | recorded. | | | | | | | | | | | | | | | | | | | | | | | | | | | Procedure | | | | | | | s | | | | | | | | | | | | | | | | | | | | | | | | | | | | | | | | | | | | | | | | | | | | | | | | | | | | | | | | | | | | | | + + + + + + + | | None | | | | | | | recorded. | | | | | | | | | | | | | | | | | | | | | | | | | | | Surgeries | | | | | | | | | | | | | | | | | | | | | | | | | | | | | | | | | | | | | | | | | | | | | | | | | | | | | | | | | | | | | | + + + + + + + | | None | | | | | | | recorded. | | | | | | | | | | | | | | | | | | | | | | | | | | | Imaging | | | | | | | | | | | | | | | | | | | | | | | | | | | | | | | | | | | | | | | | | | | | | | | | | | | | | | | | | | | | | | + + + + + + + Results +--------+--------+--------+--------+--------+--------+--------+--------+ | Date | Name | Descri | Value | Unit | Range | Abnorm | Provid | | | | ption | | | | al | er | | | | | | | | Flag | Detail | | | | | | | | | | | | | | | | | | | | | | | | | | | | | | | | | | | | | | | | | | | | | | | | | | | | | | | +--------+--------+--------+--------+--------+--------+--------+--------+ | 05/13/ | potass | | 4.1 | mmol/L | 3.5-5. | | | | 2021 | ium, | | | | 1 | | | | | serum | | | | | | | | | or | | | | | | | | | plasma | | | | | | | | | | | | | | | | | | | | | | | | | | | | potass | | | | | Nation | | | | ium | | | | | al | | | | ser/pl | | | | | Park | | | | as | | | | | Medica | | | | | | | | | l | | | | | | | | | Center | | | | | | | | | | | | | | | | | | | | | | | | | | | | | | | | | | | | | | | | | | | | | | | | | | | | | | | | | | | | | | | | | | | | | | | | | | | | | | | | | | | | | | | | | | | | | | | | | | | | | | | | | | | | | | | | | | | | | | | | | | | | | | | | | | | | | | | 1910 | | | | | | | | | [address] | | | | | | | | | [address], | | | | | | | | | Hot | | | | | | | | | Spring | | | | | | | | | s, [place], | | | | | | | | | | | | | | | | | | [address]- | | | | | | | | | [address], | | | | | | | | | Ph | | | | | | | | | (501) | | | | | | | | | [address] | | | | | | | | | 00 | | | | | | | | | | | | | | | | | | | | | | | | | | | | | | | | | | | | | | | | | | | | | | | | | | | | | | | | | | | | | | | | | | | | | | | | | | | | | | | | | | | | | | | | | | | | | | | | | | | | +--------+--------+--------+--------+--------+--------+--------+--------+ | 05/16/ | CBC w/ | | 0.3 | % | 0-2 | normal | | | 2021 | auto | | | | | | | | | diff | | | | | | | | | | | | | | | | | | | | | | | | | | | | | | | | | | | | | | | | | | | | | | basoph | | | | | Nation | | | | il % | | | | | al | | | | | | | | | Park | | | | | | | | | Medica | | | | | | | | | l | | | | | | | | | Center | | | | | | | | | | | | | | | | | | | | | | | | | | | | | | | | | | | | | | | | | | | | | | | | | | | | | | | | | | | | | | | | | | | | | | | | | | | | | | | | | | | | | | | | | | | | | | | | | | | | | | | | | | | | | | | | | | | | | | | | | | | | | | | | | | | | | | | 1910 | | | | | | | | | [address] | | | | | | | | | [address], | | | | | | | | | Hot | | | | | | | | | Spring | | | | | | | | | s, [place], | | | | | | | | | | | | | | | | | | [address]- | | | | | | | | | [address], | | | | | | | | | Ph | | | | | | | | | (501) | | | | | | | | | [address] | | | | | | | | | 00 | | | | | | | | | | | | | | | | | | | | | | | | | | | | | | | | | | | | | | | | | | | | | | | | | | | | | | | | | | | | | | | | | | | | | | | | | | | | | | | | | | | | | | | | | | | | | | | | | | | | +--------+--------+--------+--------+--------+--------+--------+--------+ | 05/16/ | CBC w/ | | 4.7 | % | 0-7 | normal | | | 2021 | auto | | | | | | | | | diff | | | | | | | | | | | | | | | | | | | | | | | | | | | | | | | | | | | | | | | | | | | | | | eosino | | | | | Nation | | | | phils | | | | | al | | | | | | | | | Park | | | | | | | | | Medica | | | | | | | | | l | | | | | | | | | Center | | | | | | | | | | | | | | | | | | | | | | | | | | | | | | | | | | | | | | | | | | | | | | | | | | | | | | | | | | | | | | | | | | | | | | | | | | | | | | | | | | | | | | | | | | | | | | | | | | | | | | | | | | | | | | | | | | | | | | | | | | | | | | | | | | | | | | | 1910 | | | | | | | | | [address] | | | | | | | | | [address], | | | | | | | | | Hot | | | | | | | | | Spring | | | | | | | | | s, [place], | | | | | | | | | | | | | | | | | | [address]- | | | | | | | | | [address], | | | | | | | | | Ph | | | | | | | | | (501) | | | | | | | | | [address] | | | | | | | | | 00 | | | | | | | | | | | | | | | | | | | | | | | | | | | | | | | | | | | | | | | | | | | | | | | | | | | | | | | | | | | | | | | | | | | | | | | | | | | | | | | | | | | | | | | | | | | | | | | | | | | | +--------+--------+--------+--------+--------+--------+--------+--------+ | 05/16/ | CBC w/ | | 30.3 | % | 36.0-4 | low | | | 2021 | auto | | | | 8.0 | | | | | diff | | | | | | | | | | | | | | | | | | | | | | | | | | | | | | | | | | | | | | | | | | | | | | HCT | | | | | Nation | | | | vfr | | | | | al | | | | bld | | | | | Park | | | | auto | | | | | Medica | | | | | | | | | l | | | | | | | | | Center | | | | | | | | | | | | | | | | | | | | | | | | | | | | | | | | | | | | | | | | | | | | | | | | | | | | | | | | | | | | | | | | | | | | | | | | | | | | | | | | | | | | | | | | | | | | | | | | | | | | | | | | | | | | | | | | | | | | | | | | | | | | | | | | | | | | | | | [address] | | | | | | | | | [address], | | | | | | | | | Hot | | | | | | | | | Spring | | | | | | | | | s, [place], | | | | | | | | | | | | | | | | | | [address]- | | | | | | | | | [address], | | | | | | | | | Ph | | | | | | | | | (501) | | | | | | | | | 321[address] | | | | | | | | | 00 | | | | | | | | | | | | | | | | | | | | | | | | | | | | | | | | | | | | | | | | | | | | | | | | | | | | | | | | | | | | | | | | | | | | | | | | | | | | | | | | | | | | | | | | | | | | | | | | | | | | +--------+--------+--------+--------+--------+--------+--------+--------+ | 05/16/ | CBC w/ | | 9.3 | g/dL | 12-16 | low | | | 2021 | auto | | | | | | | | | diff | | | | | | | | | | | | | | | | | | | | | | | | | | | | | | | | | | | | | | | | | | | | | | hemogl | | | | | Nation | | | | obin | | | | | al | | | | | | | | | Park | | | | | | | | | Medica | | | | | | | | | l | | | | | | | | | Center | | | | | | | | | | | | | | | | | | | | | | | | | | | | | | | | | | | | | | | | | | | | | | | | | | | | | | | | | | | | | | | | | | | | | | | | | | | | | | | | | | | | | | | | | | | | | | | | | | | | | | | | | | | | | | | | | | | | | | | | | | | | | | | | | | | | | | | [address] | | | | | | | | | [address], | | | | | | | | | Hot | | | | | | | | | Spring | | | | | | | | | s, [place], | | | | | | | | | | | | | | | | | | [address]- | | | | | | | | | [address], | | | | | | | | | Ph | | | | | | | | | (501) | | | | | | | | | [address] | | | | | | | | | 00 | | | | | | | | | | | | | | | | | | | | | | | | | | | | | | | | | | | | | | | | | | | | | | | | | | | | | | | | | | | | | | | | | | | | | | | | | | | | | | | | | | | | | | | | | | | | | | | | | | | | +--------+--------+--------+--------+--------+--------+--------+--------+ | 05/16/ | CBC w/ | | 0.5 | % | 0-5 | normal | | | 2021 | auto | | 0.5 | | | | | | | diff | | | | | | | | | | | | | | | | | | | | | | | | | | | | | | | | | | | | | | | | | | | | | | imm | | | | | Nation | | | | granul | | | | | al | | | | ocytes | | | | | Park | | | | bld | | | | | Medica | | | | ql | | | | | l | | | | auto | | | | | Center | | | | | | | | | | | | | | | | | | | | | | | | | | | | | | | | | | | | | | | | | | | | | | | | | | | | | | | | | | | | | | | | | | | | | | | | | | | | | | | | | | | | | | | | | | | | | | | | | | | | | | | | | | | | | | | | | | | | | | | | | | | | | | | | | | | | | | | 1910 | | | | | | | | | [address] | | | [address], | | | | | | | | | Hot | | | | | | | | | Spring | | | | | | | | | s, [place], | | | | | | | | | | | | | | | | | | [address]- | | | | | | | | | [address], | | | | | | | | | Ph | | | | | | | | | (501) | | | | | | | | | [address] | | | | | | | | | 00 | | | | | | | | | | | | | | | | | | | | | | | | | | | | | | | | | | | | | | | | | | | | | | | | | | | | | | | | | | | | | | | | | | | | | | | | | | | | | | | | | | | | | | | | | | | | | | | | | | | | +--------+--------+--------+--------+--------+--------+--------+--------+ | 05/16/ | CBC w/ | | 1.52 | 10x3/u | 1.18-3 | normal | | | 2021 | auto | | | L | .74 | | | | | diff | | | | | | | | | | | | | | | | | | | | | | | | | | | | | | | | | | | | | | | | | | | | | | absolu | | | | | Nation | | | | te | | | | | al | | | | lympho | | | | | Park | | | | cyte | | | | | Medica | | | | count | | | | | l | | | | | | | | | Center | | | | | | | | | | | | | | | | | | | | | | | | | | | | | | | | | | | | | | | | | | | | | | | | | | | | | | | | | | | | | | | | | | | | | | | | | | | | | | | | | | | | | | | | | | | | | | | | | | | | | | | | | | | | | | | | | | | | | | | | | | | | | | | | | | | | | | | 1910 | | | | | | | | | [address] | | | | | | | | | [address], | | | | | | | | | Hot | | | | | | | | | Spring | | | | | | | | | s, [place], | | | | | | | | | | | | | | | | | | [address]- | | | | | | | | | [address], | | | | | | | | | Ph | | | | | | | | | (501) | | | | | | | | | [address] | | | | | | | | | 00 | | | | | | | | | | | | | | | | | | | | | | | | | | | | | | | | | | | | | | | | | | | | | | | | | | | | | | | | | | | | | | | | | | | | | | | | | | | | | | | | | | | | | | | | | | | | | | | | | | | | +--------+--------+--------+--------+--------+--------+--------+--------+ | 05/16/ | CBC w/ | | 15.4 | % | 15-50 | normal | | | 2021 | auto | | | | | | | | | diff | | | | | | | | | | | | | | | | | | | | | | | | | | | | | | | | | | | | | | | | | | | | | | lympho | | | | | Nation | | | | cytes | | | | | al | | | | | | | | | Park | | | | | | | | | Medica | | | | | | | | | l | | | | | | | | | Center | | | | | | | | | | | | | | | | | | | | | | | | | | | | | | | | | | | | | | | | | | | | | | | | | | | | | | | | | | | | | | | | | | | | | | | | | | | | | | | | | | | | | | | | | | | | | | | | | | | | | | | | | | | | | | | | | | | | | | | | | | | | | | | | | | | | | | | 1910 | | | | | | | | | [address] | | | | | | | | | [address], | | | | | | | | | Hot | | | | | | | | | Spring | | | | | | | | | s, [place], | | | | | | | | | | | | | | | | | | [address]- | | | | | | | | | [address], | | | | | | | | | Ph | | | | | | | | | (501) | | | | | | | | | [address] | | | | | | | | | 00 | | | | | | | | | | | | | | | | | | | | | | | | | | | | | | | | | | | | | | | | | | | | | | | | | | | | | | | | | | | | | | | | | | | | | | | | | | | | | | | | | | | | | | | | | | | | | | | | | | | | +--------+--------+--------+--------+--------+--------+--------+--------+ | 05/16/ | CBC w/ | | 26.5 | pg | 26.0-3 | normal | | | 2021 | auto | | | | 4.0 | | | | | diff | | | | | | | | | | | | | | | | | | | | | | | | | | | | | | | | | | | | | | | | | | | | | | [facility] | | | | | Nation | | | | | | | | | al | | | | | | | | | Park | | | | | | | | | Medica | | | | | | | | | l | | | | | | | | | Center | | | | | | | | | | | | | | | | | | | | | | | | | | | | | | | | | | | | | | | | | | | | | | | | | | | | | | | | | | | | | | | | | | | | | | | | | | | | | | | | | | | | | | | | | | | | | | | | | | | | | | | | | | | | | | | | | | | | | | | | | | | | | | | | | | | | | | | [address] | | | | | | | | | [address] | | | | | | | | | Hot | | | | | | | | | Spring | | | | | | | | | s, [place], | | | | | | | | | | | | | | | | | | [address]- | | | | | | | | | [address], | | | | | | | | | Ph | | | | | | | | | (501) | | | | | | | | | [address] | | | | | | | | | 00 | | | | | | | | | | | | | | | | | | | | | | | | | | | | | | | | | | | | | | | | | | | | | | | | | | | | | | | | | | | | | | | | | | | | | | | | | | | | | | | | | | | | | | | | | | | | | | | | | | | | +--------+--------+--------+--------+--------+--------+--------+--------+ | 05/16/ | CBC w/ | | 30.7 | g/dL | 31.0-3 | low | | | 2021 | auto | | | | 7.0 | | | | | diff | | | | | | | | | | | | | | | | | | | | | | | | | | | | | | | | | | | | | | | | | | | | | | [facility] | | | | | Nation | | | | RBC | | | | | al | | | | auto-m | | | | | Park | | | | cnc | | | | | Medica | | | | | | | | | l | | | | | | | | | Center | | | | | | | | | | | | | | | | | | | | | | | | | | | | | | | | | | | | | | | | | | | | | | | | | | | | | | | | | | | | | | | | | | | | | | | | | | | | | | | | | | | | | | | | | | | | | | | | | | | | | | | | | | | | | | | | | | | | | | | | | | | | | | | | | | | | | | | [address] | | | | | | | | | [address] | | [address], | | | | | | | | | Hot | | | | | | | | | Spring | | | | | | | | | s, [place], | | | | | | | | | | | | | | | | | | [address]- | | | | | | | | | [address], | | | | | | | | | Ph | | | | | | | | | (501) | | | | | | | | | [address] | | | | | | | | | 00 | | | | | | | | | | | | | | | | | | | | | | | | | | | | | | | | | | | | | | | | | | | | | | | | | | | | | | | | | | | | | | | | | | | | | | | | | | | | | | | | | | | | | | | | | | | | | | | | | | | | +--------+--------+--------+--------+--------+--------+--------+--------+ | 05/16/ | CBC w/ | | 86.3 | fL | 80.0-1 | normal | | | 2021 | auto | | | | 00.0 | | | | | diff | | | | | | | | | | | | | | | | | | | | | | | | | | | | | | | | | | | | | | | | | | | | | | MCV | | | | | Nation | | | | | | | | | al | | | | | | | | | Park | | | | | | | | | Medica | | | | | | | | | l | | | | | | | | | Center | | | | | | | | | | | | | | | | | | | | | | | | | | | | | | | | | | | | | | | | | | | | | | | | | | | | | | | | | | | | | | | | | | | | | | | | | | | | | | | | | | | | | | | | | | | | | | | | | | | | | | | | | | | | | | | | | | | | | | | | | | | | | | | | | | | | | | | [address] | | | | | | | | | [address] | | | | | | | | | Hot | | | | | | | | | Spring | | | | | | | | | s, [place], | | | | | | | | | | | | | | | | | | [address]- | | | | | | | | | [address], | | | | | | | | | Ph | | | | | | | | | (501) | | | | | | | | | [address] | | | | | | | | | 00 | | | | | | | | | | | | | | | | | | | | | | | | | | | | | | | | | | | | | | | | | | | | | | | | | | | | | | | | | | | | | | | | | | | | | | | | | | | | | | | | | | | | | | | | | | | | | | | | | | | | +--------+--------+--------+--------+--------+--------+--------+--------+ | 05/16/ | CBC w/ | | 6.8 | % | 2-11 | normal | | | 2021 | auto | | | | | | | | | diff | | | | | | | | | | | | | | | | | | | | | | | | | | | | | | | | | | | | | | | | | | | | | | monocy | | | | | Nation | | | | carlos | | | | | al | | | | | | | | | Park | | | | | | | | | Medica | | | | | | | | | l | | | | | | | | | Center | | | | | | | | | | | | | | | | | | | | | | | | | | | | | | | | | | | | | | | | | | | | | | | | | | | | | | | | | | | | | | | | | | | | | | | | | | | | | | | | | | | | | | | | | | | | | | | | | | | | | | | | | | | | | | | | | | | | | | | | | | | | | | | | | | | | | | | 1910 | | | | | | | | | [address] | | | [address] | | | | | | | | | Hot | | | | | | | | | Spring | | | | | | | | | s, [place], | | | | | | | | | | | | | | | | | | [address]- | | | | | | | | | [address], | | | | | | | | | Ph | | | | | | | | | (501) | | | | | | | | | [address] | | | | | | | | | 00 | | | | | | | | | | | | | | | | | | | | | | | | | | | | | | | | | | | | | | | | | | | | | | | | | | | | | | | | | | | | | | | | | | | | | | | | | | | | | | | | | | | | | | | | | | | | | | | | | | | | +--------+--------+--------+--------+--------+--------+--------+--------+ | 05/16/ | CBC w/ | | 9.1 | fL | 7.4-10 | normal | | | 2021 | auto | | | | .4 | | | | | diff | | | | | | | | | | | | | | | | | | | | | | | | | | | | | | | | | | | | | | | | | | | | | | mean | | | | | Nation | | | | platel | | | | | al | | | | et | | | | | Park | | | | volume | | | | | Medica | | | | | | | | | l | | | | | | | | | Center | | | | | | | | | | | | | | | | | | | | | | | | | | | | | | | | | | | | | | | | | | | | | | | | | | | | | | | | | | | | | | | | | | | | | | | | | | | | | | | | | | | | | | | | | | | | | | | | | | | | | | | | | | | | | | | | | | | | | | | | | | | | | | | | | | | | | | | 1910 | | | | | | | | | [address] | | | | [address], | | | | | | | | | Hot | | | | | | | | | Spring | | | | | | | | | s, [place], | | | | | | | | | | | | | | | | | | [address]- | | | | | | | | | [address]752, | | | | | | | | | Ph | | | | | | | | | (501) | | | | | | | | | 321[address]10 | | | | | | | | | 00 | | | | | | | | | | | | | | | | | | | | | | | | | | | | | | | | | | | | | | | | | | | | | | | | | | | | | | | | | | | | | | | | | | | | | | | | | | | | | | | | | | | | | | | | | | | | | | | | | | | | +--------+--------+--------+--------+--------+--------+--------+--------+ | 05/16/ | CBC w/ | | 7.15 | 10x3/u | 1.56-6 | high | | | 2021 | auto | | | L | .13 | | | | | diff | | | | | | | | | | | | | | | | | | | | | | | | | | | | | | | | | | | | | | | | | | | | | | neutro | | | | | Nation | | | | norma | | | | | al | | | | abs# | | | | | Park | | | | | | | | | [facility] | | | | | | | | | l | | | | | | | | | Center | | | | | | | | | | | | | | | | | | | | | | | | | | | | | | | | | | | | | | | | | | | | | | | | | | | | | | | | | | | | | | | | | | | | | | | | | | | | | | | | | | | | | | | | | | | | | | | | | | | | | | | | | | | | | | | | | | | | | | | | | | | | | | | | | | | | | | | 1910 | | | | | | | | | [address] | | | | | | [address] | | | | | | | | | Hot | | | | | | | | | Spring | | | | | | | | | s, [place], | | | | | | | | | | | | | | | | | | [address]- | | | | | | | | | [address], | | | | | | | | | Ph | | | | | | | | | (501) | | | | | | | | | 321[address]10 | | | | | | | | | 00 | | | | | | | | | | | | | | | | | | | | | | | | | | | | | | | | | | | | | | | | | | | | | | | | | | | | | | | | | | | | | | | | | | | | | | | | | | | | | | | | | | | | | | | | | | | | | | | | | | | | +--------+--------+--------+--------+--------+--------+--------+--------+ | 05/16/ | CBC w/ | | 72.3 | % | 40-80 | normal | | | 2021 | auto | | | | | | | | | diff | | | | | | | | | | | | | | | | | | | | | | | | | | | | | | | | | | | | | | | | | | | | | | neutro | | | | | Nation | | | | phils | | | | | al | | | | nfr | | | | | Park | | | | bld | | | | | [facility] | | | | auto | | | | | l | | | | | | | | | Center | | | | | | | | | | | | | | | | | | | | | | | | | | | | | | | | | | | | | | | | | | | | | | | | | | | | | | | | | | | | | | | | | | | | | | | | | | | | | | | | | | | | | | | | | | | | | | | | | | | | | | | | | | | | | | | | | | | | | | | | | | | | | | | | | | | | | | | 1910 | | | | | | | | | [address] | | | | | | [address] | | | | | | | | | Hot | | | | | | | | | Spring | | | | | | | | | s, [place], | | | | | | | | | | | | | | | | | | [address]- | | | | | | | | | [address]752, | | | | | | | | | Ph | | | | | | | | | (501) | | | | | | | | | 321[address]10 | | | | | | | | | 00 | | | | | | | | | | | | | | | | | | | | | | | | | | | | | | | | | | | | | | | | | | | | | | | | | | | | | | | | | | | | | | | | | | | | | | | | | | | | | | | | | | | | | | | | | | | | | | | | | | | | +--------+--------+--------+--------+--------+--------+--------+--------+ | 05/16/ | CBC w/ | | 399 | 10x3/u | 130-40 | normal | | | 2021 | auto | | | L | 0 | | | | | diff | | | | | | | | | | | | | | | | | | | | | | | | | | | | | | | | | | | | | | | | | | | | | | platel | | | | | Nation | | | | et # | | | | | al | | | | bld | | | | | Park | | | | auto | | | | | [facility] | | | | | | | | | l | | | | | | | | | Center | | | | | | | | | | | | | | | | | | | | | | | | | | | | | | | | | | | | | | | | | | | | | | | | | | | | | | | | | | | | | | | | | | | | | | | | | | | | | | | | | | | | | | | | | | | | | | | | | | | | | | | | | | | | | | | | | | | | | | | | | | | | | | | | | | | | | | | 1910 | | | | | | | | | [address] | | | | [address] | | | | | | | | | Hot | | | | | | | | | Spring | | | | | | | | | s, [place], | | | | | | | | | | | | | | | | | | [phone]- | | | | | | | | | [address], | | | | | | | | | Ph | | | | | | | | | (501) | | | | | | | | | 321[address]10 | | | | | | | | | 00 | | | | | | | | | | | | | | | | | | | | | | | | | | | | | | | | | | | | | | | | | | | | | | | | | | | | | | | | | | | | | | | | | | | | | | | | | | | | | | | | | | | | | | | | | | | | | | | | | | | | +--------+--------+--------+--------+--------+--------+--------+--------+ | 05/16/ | CBC w/ | | 3.51 | 10x6/u | 4.00-5 | low | | | 2021 | auto | | | L | .40 | | | | | diff | | | | | | | | | | | | | | | | | | | | | | | | | | | | | | | | | | | | | | | | | | | | | | RBC # | | | | | Nation | | | | bld | | | | | al | | | | auto | | | | | Park | | | | | | | | | [facility] | | | | | | | | | l | | | | | | | | | Center | | | | | | | | | | | | | | | | | | | | | | | | | | | | | | | | | | | | | | | | | | | | | | | | | | | | | | | | | | | | | | | | | | | | | | | | | | | | | | | | | | | | | | | | | | | | | | | | | | | | | | | | | | | | | | | | | | | | | | | | | | | | | | | | | | | | | | | [address] | | | | | | | | | [address] | | | | | | [address] | | | | | | | | | Hot | | | | | | | | | Spring | | | | | | | | | s, [place], | | | | | | | | | | | | | | | | | | [address]- | | | | | | | | | [address], | | | | | | | | | Ph | | | | | | | | | (501) | | | | | | | | | [address] | | | | | | | | | 00 | | | | | | | | | | | | | | | | | | | | | | | | | | | | | | | | | | | | | | | | | | | | | | | | | | | | | | | | | | | | | | | | | | | | | | | | | | | | | | | | | | | | | | | | | | | | | | | | | | | | +--------+--------+--------+--------+--------+--------+--------+--------+ | 05/16/ | CBC w/ | | 16.0 | % | 11.5-1 | high | | | 2021 | auto | | | | 4.5 | | | | | diff | | | | | | | | | | | | | | | | | | | | | | | | | | | | | | | | | | | | | | | | | | | | | | RDW | | | | | Nation | | | | RBC | | | | | al | | | | auto-R | | | | | Park | | | | TO | | | | | [facility] | | | | | | | | | l | | | | | | | | | Center | | | | | | | | | | | | | | | | | | | | | | | | | | | | | | | | | | | | | | | | | | | | | | | | | | | | | | | | | | | | | | | | | | | | | | | | | | | | | | | | | | | | | | | | | | | | | | | | | | | | | | | | | | | | | | | | | | | | | | | | | | | | | | | | | | | | | | | 1910 | | | | | | | | | [address] | | | | [address] | | | | | | | | | Hot | | | | | | | | | Spring | | | | | | | | | s, [place], | | | | | | | | | | | | | | | | | | [address]- | | | | | | | | | 7752, | | | | | | | | | Ph | | | | | | | | | (501) | | | | | | | | | 321-10 | | | | | | | | | 00 | | | | | | | | | | | | | | | | | | | | | | | | | | | | | | | | | | | | | | | | | | | | | | | | | | | | | | | | | | | | | | | | | | | | | | | | | | | | | | | | | | | | | | | | | | | | | | | | | | | | +--------+--------+--------+--------+--------+--------+--------+--------+ | 05/16/ | CBC w/ | | 9.9 | 10x3/u | 4.8-10 | normal | | | 2021 | auto | | | L | .8 | | | | | diff | | | | | | | | | | | | | | | | | | | | | | | | | | | | | | | | | | | | | | | | | | | | | | WBC | | | | | Nation | | | | | | | | | al | | | | | | | | | Park | | | | | | | | | Medica | | | | | | | | | l | | | | | | | | | Center | | | | | | | | | | | | | | | | | | | | | | | | | | | | | | | | | | | | | | | | | | | | | | | | | | | | | | | | | | | | | | | | | | | | | | | | | | | | | | | | | | | | | | | | | | | | | | | | | | | | | | | | | | | | | | | | | | | | | | | | | | | | | | | | | | | | | | | 1910 | | | | | | | | | [address] | | | [address], | | | | | | | | | Hot | | | | | | | | | Spring | | | | | | | | | s, [place], | | | | | | | | | | | | | | | | | | [address]- | | | | | | | | | 7752, | | | | | | | | | Ph | | | | | | | | | (501) | | | | | | | | | 321-10 | | | | | | | | | 00 | | | | | | | | | | | | | | | | | | | | | | | | | | | | | | | | | | | | | | | | | | | | | | | | | | | | | | | | | | | | | | | | | | | | | | | | | | | | | | | | | | | | | | | | | | | | | | | | | | | | +--------+--------+--------+--------+--------+--------+--------+--------+ | 05/09/ | cultur | | | | | | | | 2021 | e, | | | | | | | | | respir | | | | | | | | | atory | | | | | | | | | | | | | | | | | | | | | | | | | | | | | | | | | | | | | cultur | | | | | Nation | | | | e, | | | | | al | | | | respir | | | | | Park | | | | atory | | | | | Medica | | | | | | | | | l | | | | | | | | | Center | | | | | | | | | | | | | | | | | | | | | | | | | | | | | | | | | | | | | | | | | | | | | | | | | | | | | | | | | | | | | | | | | | | | | | | | | | | | | | | | | | | | | | | | | | | | | | | | | | | | | | | | | | | | | | | | | | | | | | | | | | | | | | | | | | | | | | | 1910 | | | | | | | | | [address] | | | | | | | | [address], | | | | | | | | | Hot | | | | | | | | | Spring | | | | | | | | | s, [place], | | | | | | | | | | | | | | | | | | [address]- | | | | | | | | | 7752, | | | | | | | | | Ph | | | | | | | | | (501) | | | | | | | | | 321-10 | | | | | | | | | 00 | | | | | | | | | | | | | | | | | | | | | | | | | | | | | | | | | | | | | | | | | | | | | | | | | | | | | | | | | | | | | | | | | | | | | | | | | | | | | | | | | | | | | | | | | | | | | | | | | | | | +--------+--------+--------+--------+--------+--------+--------+--------+ | 05/09/ | microb | | 4 | | | interm | | | 2021 | ial | | | | | ediate | | | | respir | | | | | | | | | atory | | | | | | | | | cultur | | | | | | | | | e - | | | | | | | | | stenot | | | | | | | | | rophom | levofl | | | | | Nation | | | onas | oxacin | | | | | al | | | maltop | | | | | | Park | | | hilia | | | | | | Medica | | | - - | | | | | | l | | | gram | | | | | | Center | | | negati | | | | | | | | | ve | | | | | | | | | suscep | | | | | | | | | tibili | | | | | | | | | ty | | | | | | | | | | | | | | | | | | | | | | | | | | | | | | | | | | | | | | | | | | | | | | | | | | | | | | | | | | | | | | | | | | | | | | | | | | | | | | | | | | | | | | | | | | | | | | | | [address] | | | | | | | | | [address] | | | | | | | | | Hot | | | | | | | | | Spring | | | | | | | | | s, [place], | | | | | | | | | | | | | | | | | | [address]- | | | | | | | | | 7752, | | | | | | | | | Ph | | | | | | | | | (501) | | | | | | | | | 321-10 | | | | | | | | | 00 | | | | | | | | | | | | | | | | | | | | | | | | | | | | | | | | | | | | | | | | | | | | | | | | | | | | | | | | | | | | | | | | | | | | | | | | | | | | | | | | | | | | | | | | | | | | | | | | | | | | +--------+--------+--------+--------+--------+--------+--------+--------+ | 05/09/ | microb | | 20 | | | suscep | | | 2021 | ial | | | | | tible | | | | respir | | | | | | | | | atory | | | | | | | | | cultur | | | | | | | | | e - | | | | | | | | | stenot | | | | | | | | | rophom | trimet | | | | | Nation | | | onas | h/sulf | | | | | al | | | maltop | a | | | | | Park | | | hilia | | | | | | Medica | | | - - | | | | | | l | | | gram | | | | | | Center | | | negati | | | | | | | | | ve | | | | | | | | | suscep | | | | | | | | | tibili | | | | | | | | | ty | | | | | | | | | | | | | | | | | | | | | | | | | | | | | | | | | | | | | | | | | | | | | | | | | | | | | | | | | | | | | | | | | | | | | | | | | | | | | | | | | | | | | | | | | | | | | | | | 1910 | | | | | | | | | [address] | | | | | | | | [address], | | | | | | | | | Hot | | | | | | | | | Spring | | | | | | | | | s, [place], | | | | | | | | | | | | | | | | | | [address]- | | | | | | | | | 7752, | | | | | | | | | Ph | | | | | | | | | (501) | | | | | | | | | 321-10 | | | | | | | | | 00 | | | | | | | | | | | | | | | | | | | | | | | | | | | | | | | | | | | | | | | | | | | | | | | | | | | | | | | | | | | | | | | | | | | | | | | | | | | | | | | | | | | | | | | | | | | | | | | | | | | | +--------+--------+--------+--------+--------+--------+--------+--------+ | 05/09/ | microb | | 8 | | | resist | | | 2021 | ial | | | | | ant | | | | respir | | | | | | | | | atory | | | | | | | | | cultur | | | | | | | | | e - | | | | | | | | | stenot | | | | | | | | | rophom | levofl | | | | | Nation | | | onas | oxacin | | | | | al | | | maltop | | | | | | Park | | | hilia | | | | | | Medica | | | - - | | | | | | l | | | gram | | | | | | Center | | | negati | | | | | | | | | ve | | | | | | | | | suscep | | | | | | | | | tibili | | | | | | | | | ty | | | | | | | | | | | | | | | | | | | | | | | | | | | | | | | | | | | | | | | | | | | | | | | | | | | | | | | | | | | | | | | | | | | | | | | | | | | | | | | | | | | | | | | | | | | | | | | | 1910 | | | | | | | | | [address] | | | | | | | | | [address], | | | | | | | | | Hot | | | | | | | | | Spring | | | | | | | | | s, [place], | | | | | | | | | | | | | | | | | | [address]- | | | | | | | | | 7752, | | | | | | | | | Ph | | | | | | | | | (501) | | | | | | | | | 321-10 | | | | | | | | | 00 | | | | | | | | | | | | | | | | | | | | | | | | | | | | | | | | | | | | | | | | | | | | | | | | | | | | | | | | | | | | | | | | | | | | | | | | | | | | | | | | | | | | | | | | | | | | | | | | | | | | +--------+--------+--------+--------+--------+--------+--------+--------+ | 05/09/ | microb | | 20 | | | suscep | | | 2021 | ial | | | | | tible | | | | respir | | | | | | | | | atory | | | | | | | | | cultur | | | | | | | | | e - | | | | | | | | | stenot | | | | | | | | | rophom | trimet | | | | | Nation | | | onas | h/sulf | | | | | al | | | maltop | a | | | | | Park | | | hilia | | | | | | Medica | | | - - | | | | | | l | | | gram | | | | | | Center | | | negati | | | | | | | | | ve | | | | | | | | | suscep | | | | | | | | | tibili | | | | | | | | | ty | | | | | | | | | | | | | | | | | | | | | | | | | | | | | | | | | | | | | | | | | | | | | | | | | | | | | | | | | | | | | | | | | | | | | | | | | | | | | | | | | | | | | | | | | | | | | | | | 1910 | | | | | | | | | [address] | | | | | | | | [address], | | | | | | | | | Hot | | | | | | | | | Spring | | | | | | | | | s, [place], | | | | | | | | | | | | | | | | | | [address]- | | | | | | | | | 7752, | | | | | | | | | Ph | | | | | | | | | (501) | | | | | | | | | 321-10 | | | | | | | | | 00 | | | | | | | | | | | | | | | | | | | | | | | | | | | | | | | | | | | | | | | | | | | | | | | | | | | | | | | | | | | | | | | | | | | | | | | | | | | | | | | | | | | | | | | | | | | | | | | | | | | | +--------+--------+--------+--------+--------+--------+--------+--------+ | 05/09/ | microb | | 2 | | | suscep | | | 2021 | ial | | | | | tible | | | | respir | | | | | | | | | atory | | | | | | | | | cultur | | | | | | | | | e - | | | | | | | | | entero | | | | | | | | | bacter | amikac | | | | | Nation | | | | in | | | | | al | | | aeroge | | | | | | Park | | | michael - | | | | | | Medica | | | - gram | | | | | | l | | | | | | | | | Center | | | negati | | | | | | | | | ve | | | | | | | | | suscep | | | | | | | | | tibili | | | | | | | | | ty | | | | | | | | | | | | | | | | | | | | | | | | | | | | | | | | | | | | | | | | | | | | | | | | | | | | | | | | | | | | | | | | | | | | | | | | | | | | | | | | | | | | | | | | | | | | | | | | [address] | | | | | | | | | [address] | [address] | [address], | | | | | | | | | Hot | | | | | | | | | Spring | | | | | | | | | s, [place], | | | | | | | | | | | | | | | | | | [address]- | | | | | | | | | 7752, | | | | | | | | | Ph | | | | | | | | | (501) | | | | | | | | | 321-10 | | | | | | | | | 00 | | | | | | | | | | | | | | | | | | | | | | | | | | | | | | | | | | | | | | | | | | | | | | | | | | | | | | | | | | | | | | | | | | | | | | | | | | | | | | | | | | | | | | | | | | | | | | | | | | | | +--------+--------+--------+--------+--------+--------+--------+--------+ | 05/09/ | microb | | 1 | | | suscep | | | 2021 | ial | | | | | tible | | | | respir | | | | | | | | | atory | | | | | | | | | cultur | | | | | | | | | e - | | | | | | | | | entero | | | | | | | | | bacter | ceftaz | | | | | Nation | | | | idime | | | | | al | | | aeroge | | | | | | Park | | | michael - | | | | | | Medica | | | - gram | | | | | | l | | | | | | | | | Center | | | negati | | | | | | | | | ve | | | | | | | | | suscep | | | | | | | | | tibili | | | | | | | | | ty | | | | | | | | | | | | | | | | | | | | | | | | | | | | | | | | | | | | | | | | | | | | | | | | | | | | | | | | | | | | | | | | | | | | | | | | | | | | | | | | | | | | | | | | | | | | | | | | [address] | | | | | | | | | [address], | | | | | | | | | Hot | | | | | | | | | Spring | | | | | | | | | s, [place], | | | | | | | | | | | | | | | | | | [address]- | | | | | | | | | 7752, | | | | | | | | | Ph | | | | | | | | | (501) | | | | | | | | | 321-10 | | | | | | | | | 00 | | | | | | | | | | | | | | | | | | | | | | | | | | | | | | | | | | | | | | | | | | | | | | | | | | | | | | | | | | | | | | | | | | | | | | | | | | | | | | | | | | | | | | | | | | | | | | | | | | | | +--------+--------+--------+--------+--------+--------+--------+--------+ | 05/09/ | microb | | 0.25 | | | suscep | | | 2021 | ial | | | | | tible | | | | respir | | | | | | | | | atory | | | | | | | | | cultur | | | | | | | | | e - | | | | | | | | | entero | | | | | | | | | bacter | ciprof | | | | | Nation | | | | loxaci | | | | | al | | | aeroge | n | | | | | Park | | | michael - | | | | | | Medica | | | - gram | | | | | | l | | | | | | | | | Center | | | negati | | | | | | | | | ve | | | | | | | | | suscep | | | | | | | | | tibili | | | | | | | | | ty | | | | | | | | | | | | | | | | | | | | | | | | | | | | | | | | | | | | | | | | | | | | | | | | | | | | | | | | | | | | | | | | | | | | | | | | | | | | | | | | | | | | | | | | | | | | | | | | 1910 | | | | | | | | | [address] | | | | | | | | | [address], | | | | | | | | | Hot | | | | | | | | | Spring | | | | | | | | | s, [place], | | | | | | | | | | | | | | | | | | [address]- | | | | | | | | | 7752, | | | | | | | | | Ph | | | | | | | | | (501) | | | | | | | | | 321-10 | | | | | | | | | 00 | | | | | | | | | | | | | | | | | | | | | | | | | | | | | | | | | | | | | | | | | | | | | | | | | | | | | | | | | | | | | | | | | | | | | | | | | | | | | | | | | | | | | | | | | | | | | | | | | | | | +--------+--------+--------+--------+--------+--------+--------+--------+ | 05/09/ | microb | | 1 | | | suscep | | | 2021 | ial | | | | | tible | | | | respir | | | | | | | | | atory | | | | | | | | | cultur | | | | | | | | | e - | | | | | | | | | entero | | | | | | | | | bacter | ceftri | | | | | Nation | | | | axone | | | | | al | | | aeroge | | | | | | Park | | | michael - | | | | | | Medica | | | - gram | | | | | | l | | | | | | | | | Center | | | negati | | | | | | | | | ve | | | | | | | | | suscep | | | | | | | | | tibili | | | | | | | | | ty | | | | | | | | | | | | | | | | | | | | | | | | | | | | | | | | | | | | | | | | | | | | | | | | | | | | | | | | | | | | | | | | | | | | | | | | | | | | | | | | | | | | | | | | | | | | | | | | 1910 | | | | | | | | | [address] | | | | | | | | | [address], | | | | | | | | | Hot | | | | | | | | | Spring | | | | | | | | | s, [place], | | | | | | | | | | | | | | | | | | [address]- | | | | | | | | | 7752, | | | | | | | | | Ph | | | | | | | | | (501) | | | | | | | | | 321-10 | | | | | | | | | 00 | | | | | | | | | | | | | | | | | | | | | | | | | | | | | | | | | | | | | | | | | | | | | | | | | | | | | | | | | | | | | | | | | | | | | | | | | | | | | | | | | | | | | | | | | | | | | | | | | | | | +--------+--------+--------+--------+--------+--------+--------+--------+ | 05/09/ | microb | | | | | resist | | | 2021 | ial | | | | | ant | | | | respir | | | | | | | | | atory | | | | | | | | | cultur | | | | | | | | | e - | | | | | | | | | entero | | | | | | | | | bacter | cefazo | | | | | Nation | | | | brian | | | | | al | | | aeroge | | | | | | Park | | | michael - | | | | | | Medica | | | - gram | | | | | | l | | | | | | | | | Center | | | negati | | | | | | | | | ve | | | | | | | | | suscep | | | | | | | | | tibili | | | | | | | | | ty | | | | | | | | | | | | | | | | | | | | | | | | | | | | | | | | | | | | | | | | | | | | | | | | | | | | | | | | | | | | | | | | | | | | | | | | | | | | | | | | | | | | | | | | | | | | | | | | [address] | | | | | | | | | [address] | | | [address] | [address] | [address], | | | | | | | | | Hot | | | | | | | | | Spring | | | | | | | | | s, [place], | | | | | | | | | | | | | | | | | | [address]- | | | | | | | | | 7752, | | | | | | | | | Ph | | | | | | | | | (501) | | | | | | | | | 321-10 | | | | | | | | | 00 | | | | | | | | | | | | | | | | | | | | | | | | | | | | | | | | | | | | | | | | | | | | | | | | | | | | | | | | | | | | | | | | | | | | | | | | | | | | | | | | | | | | | | | | | | | | | | | | | | | | +--------+--------+--------+--------+--------+--------+--------+--------+ | 05/09/ | microb | | 1 | | | suscep | | | 2021 | ial | | | | | tible | | | | respir | | | | | | | | | atory | | | | | | | | | cultur | | | | | | | | | e - | | | | | | | | | entero | | | | | | | | | bacter | cefepi | | | | | Nation | | | | me | | | | | al | | | aeroge | | | | | | Park | | | michael - | | | | | | Medica | | | - gram | | | | | | l | | | | | | | | | Center | | | negati | | | | | | | | | ve | | | | | | | | | suscep | | | | | | | | | tibili | | | | | | | | | ty | | | | | | | | | | | | | | | | | | | | | | | | | | | | | | | | | | | | | | | | | | | | | | | | | | | | | | | | | | | | | | | | | | | | | | | | | | | | | | | | | | | | | | | | | | | | | | | | 1910 | | | | | | | | | [address] | | | | | | | | | [address], | | | | | | | | | Hot | | | | | | | | | Spring | | | | | | | | | s, [place], | | | | | | | | | | | | | | | | | | [address]- | | | | | | | | | 7752, | | | | | | | | | Ph | | | | | | | | | (501) | | | | | | | | | 321-10 | | | | | | | | | 00 | | | | | | | | | | | | | | | | | | | | | | | | | | | | | | | | | | | | | | | | | | | | | | | | | | | | | | | | | | | | | | | | | | | | | | | | | | | | | | | | | | | | | | | | | | | | | | | | | | | | +--------+--------+--------+--------+--------+--------+--------+--------+ | 05/09/ | microb | | 64 | | | resist | | | 2021 | ial | | | | | ant | | | | respir | | | | | | | | | atory | | | | | | | | | cultur | | | | | | | | | e - | | | | | | | | | entero | | | | | | | | | bacter | cefoxi | | | | | Nation | | | | tin | | | | | al | | | aeroge | | | | | | Park | | | michael - | | | | | | Medica | | | - gram | | | | | | l | | | | | | | | | Center | | | negati | | | | | | | | | ve | | | | | | | | | suscep | | | | | | | | | tibili | | | | | | | | | ty | | | | | | | | | | | | | | | | | | | | | | | | | | | | | | | | | | | | | | | | | | | | | | | | | | | | | | | | | | | | | | | | | | | | | | | | | | | | | | | | | | | | | | | | | | | | | | | | 1910 | | | | | | | | | [address] | | | | | | | | | [address], | | | | | | | | | Hot | | | | | | | | | Spring | | | | | | | | | s, [place], | | | | | | | | | | | | | | | | | | [address]- | | | | | | | | | 7752, | | | | | | | | | Ph | | | | | | | | | (501) | | | | | | | | | 321-10 | | | | | | | | | 00 | | | | | | | | | | | | | | | | | | | | | | | | | | | | | | | | | | | | | | | | | | | | | | | | | | | | | | | | | | | | | | | | | | | | | | | | | | | | | | | | | | | | | | | | | | | | | | | | | | | | +--------+--------+--------+--------+--------+--------+--------+--------+ | 05/09/ | microb | | 1 | | | suscep | | | 2021 | ial | | | | | tible | | | | respir | | | | | | | | | atory | | | | | | | | | cultur | | | | | | | | | e - | | | | | | | | | entero | | | | | | | | | bacter | gentam | | | | | Nation | | | | icin | | | | | al | | | aeroge | | | | | | Park | | | michael - | | | | | | Medica | | | - gram | | | | | | l | | | | | | | | | Center | | | negati | | | | | | | | | ve | | | | | | | | | suscep | | | | | | | | | tibili | | | | | | | | | ty | | | | | | | | | | | | | | | | | | | | | | | | | | | | | | | | | | | | | | | | | | | | | | | | | | | | | | | | | | | | | | | | | | | | | | | | | | | | | | | | | | | | | | | | | | | | | | | | 1910 | | | | | | | | | [address] | | | | | | | | | [address], | | | | | | | | | Hot | | | | | | | | | Spring | | | | | | | | | s, [place], | | | | | | | | | | | | | | | | | | [address]- | | | | | | | | | 7752, | | | | | | | | | Ph | | | | | | | | | (501) | | | | | | | | | 321-10 | | | | | | | | | 00 | | | | | | | | | | | | | | | | | | | | | | | | | | | | | | | | | | | | | | | | | | | | | | | | | | | | | | | | | | | | | | | | | | | | | | | | | | | | | | | | | | | | | | | | | | | | | | | | | | | | +--------+--------+--------+--------+--------+--------+--------+--------+ | 05/09/ | microb | | 1 | | | suscep | | | 2021 | ial | | | | | tible | | | | respir | | | | | | | | | atory | | | | | | | | | cultur | | | | | | | | | e - | | | | | | | | | entero | | | | | | | | | bacter | levofl | | | | | Nation | | | | oxacin | | | | | al | | | aeroge | | | | | | Park | | | michael - | | | | | | Medica | | | - gram | | | | | | l | | | | | | | | | Center | | | negati | | | | | | | | | ve | | | | | | | | | suscep | | | | | | | | | tibili | | | | | | | | | ty | | | | | | | | | | | | | | | | | | | | | | | | | | | | | | | | | | | | | | | | | | | | | | | | | | | | | | | | | | | | | | | | | | | | | | | | | | | | | | | | | | | | | | | | | | | | | | | | 1910 | | | | | | | | | [address] | | [address] | | | | | | | | | Hot | | | | | | | | | Spring | | | | | | | | | [place], [place], | | | | | | | | | | | | | | | | | | [id number]- | | | | | | | | | [address], | | | | | | | | | Ph | | | | | | | | | (501) | | | | | | | | | 321[address]10 | | | | | | | | | 00 | | | | | | | | | | | | | | | | | | | | | | | | | | | | | | | | | | | | | | | | | | | | | | | | | | | | | | | | | | | | | | | | | | | | | | | | | | | | | | | | | | | | | | | | | | | | | | | | | | | | +--------+--------+--------+--------+--------+--------+--------+--------+ | 05/09/ | microb | | 0.25 | | | suscep | | | 2021 | ial | | | | | tible | | | | respir | | | | | | | | | atory | | | | | | | | | cultur | | | | | | | | | e - | | | | | | | | | entero | | | | | | | | | bacter | merope | | | | | Nation | | | | nem | | | | | al | | | aeroge | | | | | | Park | | | michael - | | | | | | Medica | | | - gram | | | | | | l | | | | | | | | | Center | | | negati | | | | | | | | | ve | | | | | | | | | suscep | | | | | | | | | tibili | | | | | | | | | ty | | | | | | | | | | | | | | | | | | | | | | | | | | | | | | | | | | | | | | | | | | | | | | | | | | | | | | | | | | | | | | | | | | | | | | | | | | | | | | | | | | | | | | | | | | | | | | | | 1910 | | | | | | | | | [address] | | | | [address] | | | | | | | | | Hot | | | | | | | | | Spring | | | | | | | | | [place], [place], | | | | | | | | | | | | | | | | | | [address]- | | | | | | | | | [address], | | | | | | | | | Ph | | | | | | | | | (501) | | | | | | | | | 321[address]10 | | | | | | | | | 00 | | | | | | | | | | | | | | | | | | | | | | | | | | | | | | | | | | | | | | | | | | | | | | | | | | | | | | | | | | | | | | | | | | | | | | | | | | | | | | | | | | | | | | | | | | | | | | | | | | | | +--------+--------+--------+--------+--------+--------+--------+--------+ | 05/09/ | microb | | 20 | | | suscep | | | 2021 | ial | | | | | tible | | | | respir | | | | | | | | | atory | | | | | | | | | cultur | | | | | | | | | e - | | | | | | | | | entero | | | | | | | | | bacter | trimet | | | | | Nation | | | | h/sulf | | | | | al | | | aeroge | a | | | | | Park | | | michael - | | | | | | Medica | | | - gram | | | | | | l | | | | | | | | | Center | | | negati | | | | | | | | | ve | | | | | | | | | suscep | | | | | | | | | tibili | | | | | | | | | ty | | | | | | | | | | | | | | | | | | | | | | | | | | | | | | | | | | | | | | | | | | | | | | | | | | | | | | | | | | | | | | | | | | | | | | | | | | | | | | | | | | | | | | | | | | | | | | | | [address] | | | | | | | | | [address] | | | | | | | | | Hot | | | | | | | | | Spring | | | | | | | | | s, [place], | | | | | | | | | | | | | | | | | | [address]- | | | | | | | | | [address], | | | | | | | | | Ph | | | | | | | | | (501) | | | | | | | | | 321[address]10 | | | | | | | | | 00 | | | | | | | | | | | | | | | | | | | | | | | | | | | | | | | | | | | | | | | | | | | | | | | | | | | | | | | | | | | | | | | | | | | | | | | | | | | | | | | | | | | | | | | | | | | | | | | | | | | | +--------+--------+--------+--------+--------+--------+--------+--------+ | 05/09/ | microb | | 1 | | | suscep | | | 2021 | ial | | | | | tible | | | | respir | | | | | | | | | atory | | | | | | | | | cultur | | | | | | | | | e - | | | | | | | | | entero | | | | | | | | | bacter | tobram | | | | | Nation | | | | ycin | | | | | al | | | aeroge | | | | | | Park | | | michael - | | | | | | Medica | | | - gram | | | | | | l | | | | | | | | | Center | | | negati | | | | | | | | | ve | | | | | | | | | suscep | | | | | | | | | tibili | | | | | | | | | ty | | | | | | | | | | | | | | | | | | | | | | | | | | | | | | | | | | | | | | | | | | | | | | | | | | | | | | | | | | | | | | | | | | | | | | | | | | | | | | | | | | | | | | | | | | | | | | | | 1910 | | | | | | | | | [address] | | | | | | [address] | | [address], | | | | | | | | | Hot | | | | | | | | | Spring | | | | | | | | | s, [place], | | | | | | | | | | | | | | | | | | [address]- | | | | | | | | | [address], | | | | | | | | | Ph | | | | | | | | | (501) | | | | | | | | | 321[address]10 | | | | | | | | | 00 | | | | | | | | | | | | | | | | | | | | | | | | | | | | | | | | | | | | | | | | | | | | | | | | | | | | | | | | | | | | | | | | | | | | | | | | | | | | | | | | | | | | | | | | | | | | | | | | | | | | +--------+--------+--------+--------+--------+--------+--------+--------+ | 05/09/ | microb | | 16 | | | suscep | | | 2021 | ial | | | | | tible | | | | respir | | | | | | | | | atory | | | | | | | | | cultur | | | | | | | | | e - | | | | | | | | | entero | | | | | | | | | bacter | pipera | | | | | Nation | | | | cillin | | | | | al | | | aeroge | /tazob | | | | | Park | | | michael - | actam | | | | | Medica | | | - gram | | | | | | l | | | | | | | | | Center | | | negati | | | | | | | | | ve | | | | | | | | | suscep | | | | | | | | | tibili | | | | | | | | | ty | | | | | | | | | | | | | | | | | | | | | | | | | | | | | | | | | | | | | | | | | | | | | | | | | | | | | | | | | | | | | | | | | | | | | | | | | | | | | | | | | | | | | | | | | | | | | | | | [address] | | | | | | | | | [address] | | | | | | [address] | | | | | | | | | Hot | | | | | | | | | Spring | | | | | | | | | s, [place], | | | | | | | | | | | | | | | | | | [id number]- | | | | | | | | | [address], | | | | | | | | | Ph | | | | | | | | | (501) | | | | | | | | | [address] | | | | | | | | | 00 | | | | | | | | | | | | | | | | | | | | | | | | | | | | | | | | | | | | | | | | | | | | | | | | | | | | | | | | | | | | | | | | | | | | | | | | | | | | | | | | | | | | | | | | | | | | | | | | | | | | +--------+--------+--------+--------+--------+--------+--------+--------+ | | XR, | | | | | | | | | chest, | | | | | | | | | 1 | | | | | | | | | view | | | | | | | | | | | | | | | | | | | | | | | | | | | | | | | | | | | | | | No | | | | Nation | | | | | observ | | | | al | | | | | ation | | | | Park | | | | | record | | | | [facility] | | | | | ed. | | | | l | | | | | | | | | Center | | | | | | | | | | | | | | | | | | ([facility] | | | | | | | | | ng) | | | | | | | | | | | | | | | | | | | | | | | | | | | | | | | | | | | | | | | | | | | | | | | | | | | | | | | | | | | | | | | | | | | | | | | | | | | | | | | | | | | | | | | | | | | | | | | | | | | | | | | | | | | | | | | | | | | | | | | | | | | | | | | | | | | | | | | 1910 | | | | | | | | | [address] | | | | [address] | | | | | | | | | Hot | | | | | | | | | Spring | | | | | | | | | s | | | | | | | | | Nation | | | | | | | | | al | | | | | | | | | Park, | | | | | | | | | [place], | | | | | | | | | [id number], | | | | | | | | | Ph | | | | | | | | | (501) | | | | | | | | | [address] | | | | | | | | | [address] | | | | | | | | | | | | | | | | | | | | | | | | | | | | | | | | | | | | | | | | | | | | | | | | | | | | | | | | | | | | | | | | | | | | | | | | | | | | | | | | | | | | | | | | | | | | | | | | | | | | +--------+--------+--------+--------+--------+--------+--------+--------+ | | XR, | | | | | | | | | chest, | | | | | | | | | 1 | | | | | | | | | view | | | | | | | | | | | | | | | | | | | | | | | | | | | | | | | | | | | | | | No | | | | Nation | | | | | observ | | | | al | | | | | ation | | | | Park | | | | | record | | | | [facility] | | | | | ed. | | | | l | | | | | | | | | Center | | | | | | | | | | | | | | | | | | (Imagi | | | | | | | | | ng) | | | | | | | | | | | | | | | | | | | | | | | | | | | | | | | | | | | | | | | | | | | | | | | | | | | | | | | | | | | | | | | | | | | | | | | | | | | | | | | | | | | | | | | | | | | | | | | | | | | | | | | | | | | | | | | | | | | | | | | | | | | | | | | | | | | | | | | 1910 | | | | | | | | | [address] | | | | | | | | | [address], | | | | | | | | | Hot | | | | | | | | | Spring | | | | | | | | | s | | | | | | | | | Nation | | | | | | | | | al | | | | | | | | | Park, | | | | | | | | | [place], | | | | | | | | | [id number], | | | | | | | | | Ph | | | | | | | | | (501) | | | | | | | | | [address] | | | | | | | | | 75 | | | | | | | | | | | | | | | | | | | | | | | | | | | | | | | | | | | | | | | | | | | | | | | | | | | | | | | | | | | | | | | | | | | | | | | | | | | | | | | | | | | | | | | | | | | | | | | | | | | | +--------+--------+--------+--------+--------+--------+--------+--------+ | | XR, | | | | | | | | | chest, | | | | | | | | | 1 | | | | | | | | | view | | | | | | | | | | | | | | | | | | | | | | | | | | | | | | | | | | | | | | No | | | | Nation | | | | | observ | | | | al | | | | | ation | | | | Park | | | | | record | | | | [facility] | | | | | ed. | | | | l | | | | | | | | | Center | | | | | | | | | | | | | | | | | | (Imagi | | | | | | | | | ng) | | | | | | | | | | | | | | | | | | | | | | | | | | | | | | | | | | | | | | | | | | | | | | | | | | | | | | | | | | | | | | | | | | | | | | | | | | | | | | | | | | | | | | | | | | | | | | | | | | | | | | | | | | | | | | | | | | | | | | | | | | | | | | | | | | | | | | | 1910 | | | | | | | | | [address] | | | | | | | | | [address] | | | | | | | | | Hot | | | | | | | | | Spring | | | | | | | | | s | | | | | | | | | Nation | | | | | | | | | al | | | | | | | | | Park, | | | | | | | | | [place], | | | | | | | | | [id number], | | | | | | | | | Ph | | | | | | | | | (501) | | | | | | | | | [address] | | | | | | | | | 75 | | | | | | | | | | | | | | | | | | | | | | | | | | | | | | | | | | | | | | | | | | | | | | | | | | | | | | | | | | | | | | | | | | | | | | | | | | | | | | | | | | | | | | | | | | | | | | | | | | | | +--------+--------+--------+--------+--------+--------+--------+--------+ | | XR, | | | | | | | | | chest, | | | | | | | | | 1 | | | | | | | | | view | | | | | | | | | | | | | | | | | | | | | | | | | | | | | | | | | | | | | | No | | | | Nation | | | | | observ | | | | al | | | | | ation | | | | Park | | | | | record | | | | [facility] | | | | | ed. | | | | l | | | | | | | | | Center | | | | | | | | | | | | | | | | | | (Imagi | | | | | | | | | ng) | | | | | | | | | | | | | | | | | | | | | | | | | | | | | | | | | | | | | | | | | | | | | | | | | | | | | | | | | | | | | | | | | | | | | | | | | | | | | | | | | | | | | | | | | | | | | | | | | | | | | | | | | | | | | | | | | | | | | | | | | | | | | | | | | | | | | | | 1910 | | | | | | | | | [address] | | | | | | | | | [address], | | | | | | | | | Hot | | | | | | | | | Spring | | | | | | | | | s | | | | | | | | | Nation | | | | | | | | | al | | | | | | | | | Park, | | | | | | | | | [place], | | | | | | | | | [id number], | | | | | | | | | Ph | | | | | | | | | (501) | | | | | | | | | [address] | | | | | | | | | 75 | | | | | | | | | | | | | | | | | | | | | | | | | | | | | | | | | | | | | | | | | | | | | | | | | | | | | | | | | | | | | | | | | | | | | | | | | | | | | | | | | | | | | | | | | | | | | | | | | | | | +--------+--------+--------+--------+--------+--------+--------+--------+ Problems +---------+---------+---------+---------+---------+---------+---------+ | Name | Status | Last | Onset | Resolut | Lateral | Problem | | | | Modifie | Date | ion | ity | Type | | | | d Date | | Date | | | | | | | | | | | | | | | | | | | | | | | | | | | | | | | | | | | | | | | | | | | +---------+---------+---------+---------+---------+---------+---------+ | Candidi | Active | | | | | | | asis of | | 019 | 019 | | | | | skin | | | | | | | | | | | | | | | | | | | | | | | | | | | | | | | | | | | | | | | | | | | | | | | +---------+---------+---------+---------+---------+---------+---------+ | Maligna | Active | | | | | | | nt | | 018 | 018 | | | | | tumor | | | | | | | | of | | | | | | | | pharynx | | | | | | | | | | | | | | | | | | | | | | | | | | | | | | | | | | | | | | | | | | | | | | | | | | | | | | | +---------+---------+---------+---------+---------+---------+---------+ | Maligna | Active | | | | | | | nt | | 018 | 018 | | | | | tumor | | | | | | | | of lung | | | | | | | | | | | | | | | | | | | | | | | | | | | | | | | | | | | | | | | | | | | | | | | | | | | | | | | +---------+---------+---------+---------+---------+---------+---------+ | Hypothy | Active | | | | | | | roidism | | 018 | 018 | | | | | | | | | | | | | | | | | | | | | | | | | | | | | | | | | | | | | | | | | | | | | | | | | | | | +---------+---------+---------+---------+---------+---------+---------+ | Hyperch | Active | | | | | | | olester | | 018 | 018 | | | | | olemia | | | | | | | | | | | | | | | | | | | | | | | | | | | | | | | | | | | | | | | | | | | | | | | +---------+---------+---------+---------+---------+---------+---------+ | Coronar | Active | | | | | | | y | | 018 | 018 | | | | | arterio | | | | | | | | scleros | | | | | | | | is in | | | | | | | | pauma | | | | | | | | artery | | | | | | | | | | | | | | | | | | | | | | | | | | | | | | | | | | | | | | | | | | | | | | | +---------+---------+---------+---------+---------+---------+---------+ | Pneumon | Active | | | | | | | ia | | 019 | 019 | | | | | | | | | | | | | | | | | | | | | | | | | | | | | | | | | | | | | | | | | | | | +---------+---------+---------+---------+---------+---------+---------+ | Malfunc | Active | | | | | | | tion of | | 020 | 020 | | | | | | | | | | | | | gastros | | | | | | | | samm | | | | | | | | tube | | | | | | | | | | | | | | | | | | | | | | | | | | | | | | | | | | | | | | | | | | | | | | | +---------+---------+---------+---------+---------+---------+---------+ | Pyogeni | Active | | | | | | | c | | 020 | 020 | | | | | granulo | | | | | | | | ma | | | | | | | | | | | | | | | | | | | | | | | | | | | | | | | | | | | | | | | | | | | | | | | +---------+---------+---------+---------+---------+---------+---------+ | Dysphag | Active | | | | | | | ia | | 021 | 021 | | | | | | | | | | | | | | | | | | | | | | | | | | | | | | | | | | | | | | | | | | | | +---------+---------+---------+---------+---------+---------+---------+ Procedures Surgical History + + + + + | Date | Name | Laterality | Status | | | | | | | | | | | | | | | | + + + + + | | | | active | | | | | | | | Knee | | | | | arthroscopy/ayad | | | | | tyler | | | | | | | | | | | | | | | | | | | | | | | | | | | | + + + + + | | | | active | | | | | | | | Other | | | | | | | | | | | | | | | | | | | | | | | | | | | | + + + + + Imaging Results None recorded. Medical Equipment None Reported. Allergies No known drug allergies - True Medications + + + + + + + | Name | Sig | Start | Stop Date | Status | Note | | | | Date | | | | | | | | | | | | | | | | | | | | | | | | | | | | | | | | + + + + + + + | | | | | active | | | | | | | | | | | | | | | | | | | | | | | | | | | | | | | | | | | | | | | | | | | | | compound | | | | | | | drug | | | | | | | | | | | | | | | | | | | | | | | | | | | | | | | | | | | | | | | | | | | | | | | | | | | | | | | | | | | | | | | | | | | | | | | | | | | | + + + + + + + | | | | | active | | | | | | | | | | | | | | | | | | | | | | | | | TK 1 | | | | | | | T PO QD | | | | | | | | | | | | | levothyro | | | | | | | xine 175 | | | | | | | mcg | | | | | | | tablet | | | | | | | | | | | | | | | | | | | | | | | | | | | | | | | | | | | | | | | | | | | | | | | | | | | | | | | | | | | | | | | | | | | | | | | | | | | | + + + + + + + | | | | | active | | | | | | | | | | | | | | | | | | | | | | | | | | | | | | | | | | | | | | | | | | | | | lidocaine | | | | | | | HCl 10 | | | | | | | mg/mL (1 | | | | | | | %) | | | | | | | injection | | | | | | | solution | | | | | | | | | | | | | | | | | | | | | | | | | | | | | | | | | | | | | | | | | | | | | | | | | | | | | | | | | | | | | | | | | | | | | | | | | | | | + + + + + + + | | | | | completed | | | | | | | | | | | | | 08/04/202 | | | | | | | 0 | | | | | GIVE | | | | | | | 1 T VIA | | | | | | | PEG TUBE | | | | | | levothyro | | | | | | | xine 137 | | | | | | | mcg | | | | | | | tablet | | | | | | | | | | | | | | | | | | | | | | | | | | | | | | | | | | | | | | | | | | | | | | | | | | | | | | | | | | | | | | | | | | | | | | | | | | | | + + + + + + + | | | | | completed | | | | | | | | | | | | | 08/04/202 | | | | | | | 0 | | | | | | | | | | | | | | | | | | | | | | | | | prednison | | | | | | | e 10 mg | | | | | | | tablet | | | | | | | | | | | | | | | | | | | | | | | | | | | | | | | | | | | | | | | | | | | | | | | | | | | | | | | | | | | | | | | | | | | | | | | | | | | | + + + + + + + | | | | | completed | | | | | | | | | | | | | 08/04/202 | | | | | | | 0 | | | | | | | | | | | | | | | | | | | | | | | | | doxycycli | | | | | | | ne | | | | | | | hyclate | | | | | | | 100 mg | | | | | | | capsule | | | | | | | | | | | | | | | | | | | | | | | | | | | | | | | | | | | | | | | | | | | | | | | | | | | | | | | | | | | | | | | | | | | | | | | | | | | | + + + + + + + | | | | | active | | | | | | | | | | | | | | | | | | | | | | | | | Take | | | | | | | 1 tablet | | | | | | | every day | | | | | | atorvasta | by oral | | | | | | tin 20 mg | route at | | | | | | tablet | bedtime. | | | | | | | | | | | | | | | | | | | | | | | | | | | | | | | | | | | | | | | | | | | | | | | | | | | | | | | | | | | | | | | | | | | | | | | | | | | + + + + + + + | | | | | active | | | | | | | | | | | | | | | | | | | | | | | | | | | | | | | | | | | | | | | | | | | | | ipratropi | | | | | | | um 0.5 | | | | | | | mg-albute | | | | | | | rol 3 mg | | | | | | | (2.5 mg | | | | | | | base)/3 | | | | | | | mL | | | | | | | nebulizat | | | | | | | ion soln | | | | | | | | | | | | | | | | | | | | | | | | | | | | | | | | | | | | | | | | | | | | | | | | | | | | | | | | | | | | | | | | | | | | | | | | | | | | + + + + + + + | | | | | completed | | | | | | | | | | | | | 08/04/202 | | | | | | | 0 | | | | | TAKE | | | | | | | 10ML BY | | | | | | | MOUTH | | | | | | Carafate | EVERY 4 | | | | | | 100 mg/mL | HOURS | | | | | | oral | | | | | | | suspensio | | | | | | | n | | | | | | | | | | | | | | | | | | | | | | | | | | | | | | | | | | | | | | | | | | | | | | | | | | | | | | | | | | | | | | | | | | | | | | | | | | | | + + + + + + + | | | | | active | | | | | | | | | | | | | | | | | | | | | | | | | USE 1 | | | | | | | VIAL IN | | | | | | | NEBULIZER | | | | | | albuterol | QID PRN | | | | | | sulfate | COUGH | | | | | | 2.5 mg/3 | | | | | | | mL (0.083 | | | | | | | %) | | | | | | | solution | | | | | | | for | | | | | | | nebulizat | | | | | | | ion | | | | | | | | | | | | | | | | | | | | | | | | | | | | | | | | | | | | | | | | | | | | | | | | | | | | | | | | | | | | | | | | | | | | | | | | | | | | + + + + + + + | | | | | active | | | | | | | | | | | | | | | | | | | | | | | | | | | | | | | | | | | | | | | | | | | | | furosemid | | | | | | | e 10 | | | | | | | mg/mL | | | | | | | oral | | | | | | | solution | | | | | | | | | | | | | | | | | | | | | | | | | | | | | | | | | | | | | | | | | | | | | | | | | | | | | | | | | | | | | | | | | | | | | | | | | | | | + + + + + + + | | | | | active | | | | | | | | | | | | | | | | | | | | | | | | | TAKE | | | | | | | 2 TABLETS | | | | | | | (500 MG) | | | | | | azithromy | BY ORAL | | | | | | wilder 250 | ROUTE | | | | | | mg tablet | ONCE | | | | | | | DAILY FOR | | | | | | | 1 DAY | | | | | | | THEN 1 | | | | | | | TABLET | | | | | | | (250 MG) | | | | | | | BY ORAL | | | | | | | ROUTE | | | | | | | ONCE | | | | | | | DAILY FOR | | | | | | | 4 DAYS | | | | | | | | | | | | | | | | | | | | | | | | | | | | | | | | | | | | | | | | | | | | | | | | | | | | | | | | | | | | | + + + + + + + | | | | | completed | | | | | | | | | | | | | 08/04/202 | | | | | | | 0 | | | | | TAKE | | | | | | | 1 TABLET | | | | | | | BY MOUTH | | | | | | citalopra | EVERY DAY | | | | | | m 10 mg | | | | | | | tablet | | | | | | | | | | | | | | | | | | | | | | | | | | | | | | | | | | | | | | | | | | | | | | | | | | | | | | | | | | | | | | | | | | | | | | | | | | | | + + + + + + + | | | | | active | | | | | | | | | | | | | | | | | | | | | | | | | | | | | | | | | | | | | | | | | | | | | hydrocodo | | | | | | | ne 5 | | | | | | | mg-acetam | | | | | | | inophen | | | | | | | 325 mg | | | | | | | tablet | | | | | | | | | | | | | | | | | | | | | | | | | | | | | | | | | | | | | | | | | | | | | | | | | | | | | | | | | | | | | | | | | | | | | | | | | | | | + + + + + + + | | | | | active | | | | | | | | | | | | 03/18/201 | | | | | | | 9 | | | | | | Take | | | | | | | one | | | | | | | tablet | | | | | | ondansetr | [id number] | | | | | | on HCl 4 | rs as | | | | | | mg tablet | needed | | | | | | | | | | | | | | | | | | | | | | | | | | | | | | | | | | | | | | | | | | | | | | | | | | | | | | | | | | | | | | | | | | | | | | | | | | | + + + + + + + | | | | | completed | | | | | | | | | | | | | 08/04/202 | | | | | | | 0 | | | | | | | | | | | | | | | | | | | | | | | | | prednison | | | | | | | e 20 mg | | | | | | | tablet | | | | | | | | | | | | | | | | | | | | | | | | | | | | | | | | | | | | | | | | | | | | | | | | | | | | | | | | | | | | | | | | | | | | | | | | | | | | + + + + + + + | | | | | active | | | | | | | | | | | | | | | | | | | | | | | | | Take | | | | | | | 1 tablet | | | | | | | every day | | | | | | clopidogr | by oral | | | | | | el 75 mg | route. | | | | | | tablet | | | | | | | | | | | | | | | | | | | | | | | | | | | | | | | | | | | | | | | | | | | | | | | | | | | | | | | | | | | | | | | | | | | | | | | | | | | | + + + + + + + | | | | | completed | | | | | | | | | | | | | /04/202 | | | | | | | 0 | | | | | | | | | | | | | | | | | | | | | | | | | ciproflox | | | | | | | acin 500 | | | | | | | mg tablet | | | | | | | | | | | | | | | | | | | | | | | | | | | | | | | | | | | | | | | | | | | | | | | | | | | | | | | | | | | | | | | | | | | | | | | | | | | | + + + + + + + | | | | | active | | | | | | | | | | | | | | | | | | | | | | | | | | | | | | | | | | | | | | | | | | | | | sulfameth | | | | | | | oxazole | | | | | | | 800 | | | | | | | mg-trimet | | | | | | | hoprim | | | | | | | 160 mg | | | | | | | tablet | | | | | | | | | | | | | | | | | | | | | | | | | | | | | | | | | | | | | | | | | | | | | | | | | | | | | | | | | | | | | | | | | | | | | | | | | | | | + + + + + + + | | | | | active | | | | | | | | | | | | | | | | | | | | | | | | | Take | | | | | | | 1 tablet | | | | | | | twice a | | | | | | tramadol | day by | | | | | | 50 mg | oral | | | | | | tablet | route as | | | | | | | needed. | | | | | | | | | | | | | | | | | | | | | | | | | | | | | | | | | | | | | | | | | | | | | | | | | | | | | | | | | | | | | | | | | | | | + + + + + + + | | | | | active | | | | | | | | | | | | | | | | | | | | | | | | | | | | | | | | | | | | | | | | | | | | | temazepam | | | | | | | 7.5 mg | | | | | | | capsule | | | | | | | | | | | | | | | | | | | | | | | | | | | | | | | | | | | | | | | | | | | | | | | | | | | | | | | | | | | | | | | | | | | | | | | | | | | | + + + + + + + | | | | | completed | | | | | | | | | | | | | 03/19/ | | | | | | | 0 | | | | | TAKE | | | | | | | 1 TABLET | | | | | | | BY MOUTH | | | | | | levothyro | EVERY DAY | | | | | | xine 75 | | | | | | | mcg | | | | | | | tablet | | | | | | | | | | | | | | | | | | | | | | | | | | | | | | | | | | | | | | | | | | | | | | | | | | | | | | | | | | | | | | | | | | | | | | | | | | | | + + + + + + + | | | | | completed | | | | | | | | | | | | | 03/19/ | | | | | | | 0 | | | | | | | | | | | | | | | | | | | | | | | | | amoxicill | | | | | | | in 400 | | | | | | | mg-potass | | | | | | | ium | | | | | | | clavulana | | | | | | | te 57 | | | | | | | mg/5 mL | | | | | | | oral | | | | | | | suspensio | | | | | | | n | | | | | | | | | | | | | | | | | | | | | | | | | | | | | | | | | | | | | | | | | | | | | | | | | | | | | | | | | | | | | | | | | | | | | | | | | | | | + + + + + + + | | | | | active | | | | | | | | | | | | | | | | | | | | | | | | | | | | | | | | | | | | | | | | | | | | | ceftriaxo | | | | | | | ne 1 gram | | | | | | | solution | | | | | | | for | | | | | | | injection | | | | | | | | | | | | | | | | | | | | | | | | | | | | | | | | | | | | | | | | | | | | | | | | | | | | | | | | | | | | | | | | | | | | | | | | | | | | + + + + + + + | | | | | active | | | | | | | | | | | | | | | | | | | | | | | | | GIVE | | | | | | | 2 TS VIA | | | | | | | PEG TUBE | | | | | | citalopra | D | | | | | | m 20 mg | | | | | | | tablet | | | | | | | | | | | | | | | | | | | | | | | | | | | | | | | | | | | | | | | | | | | | | | | | | | | | | | | | | | | | | | | | | | | | | | | | | | | | + + + + + + + | | | | | active | | | | | | | | | | | | | | | | | | | | | | | | | | | | | | | | | | | | | | | | | | | | | metoclopr | | | | | | | amide 5 | | | | | | | mg tablet | | | | | | | | | | | | | | | | | | | | | | | | | | | | | | | | | | | | | | | | | | | | | | | | | | | | | | | | | | | | | | | | | | | | | | | | | | | | + + + + + + + | | | | | active | | | | | | | | | | | | | | | | | | | | | | | | | | | | | | | | | | | | | | | | | | | | | temazepam | | | | | | | 15 mg | | | | | | | capsule | | | | | | | | | | | | | | | | | | | | | | | | | | | | | | | | | | | | | | | | | | | | | | | | | | | | | | | | | | | | | | | | | | | | | | | | | | | | + + + + + + + | | | | | active | | | | | | | | | | | | | | | | | | | | | | | | | | | | | | | | | | | | | | | | | | | | | tamsulosi | | | | | | | n 0.4 mg | | | | | | | capsule | | | | | | | | | | | | | | | | | | | | | | | | | | | | | | | | | | | | | | | | | | | | | | | | | | | | | | | | | | | | | | | | | | | | | | | | | | | | + + + + + + + | | | | | completed | | | | | | | | | | | | | 08/04/202 | | | | | | | 0 | | | | | | | | | | | | INJECT | | | | | | | PER | | | | | | Humulin R | SLIDING | | | | | | Regular | SCALE Q 6 | | | | | | U-100 | HOURS | | | | | | Insulin | | | | | | | 100 | | | | | | | unit/mL | | | | | | | injection | | | | | | | solution | | | | | | | | | | | | | | | | | | | | | | | | | | | | | | | | | | | | | | | | | | | | | | | | | | | | | | | | | | | | | | | | | | | | | | | | | | | | + + + + + + + | | | | | active | | | | | | | | | | | | | | | | | | | | | | | | | | | | | | | | | | | | | | | | | | | | | pantopraz | | | | | | | ole 40 mg | | | | | | | | | | | | | | tablet,de | | | | | | | layed | | | | | | | release | | | | | | | | | | | | | | | | | | | | | | | | | | | | | | | | | | | | | | | | | | | | | | | | | | | | | | | | | | | | | | | | | | | | | | | | | | | | + + + + + + + | | | | | completed | | | | | | | | | | | | | 08/04/202 | | | | | | | 0 | | | | | | | | | | | | | | | | | | | | | | | | | cephalexi | | | | | | | n 250 | | | | | | | mg/5 mL | | | | | | | oral | | | | | | | suspensio | | | | | | | n | | | | | | | | | | | | | | | | | | | | | | | | | | | | | | | | | | | | | | | | | | | | | | | | | | | | | | | | | | | | | | | | | | | | | | | | | | | | + + + + + + + | | | | | completed | | | | | | | | | | | | | 08/04/202 | | | | | | | 0 | | | | | | | | | | | | | | | | | | | | | | | | | nystatin | | | | | | | 100,000 | | | | | | | unit/gram | | | | | | | topical | | | | | | | cream | | | | | | | | | | | | | | | | | | | | | | | | | | | | | | | | | | | | | | | | | | | | | | | | | | | | | | | | | | | | | | | | | | | | | | | | | | | | + + + + + + + | | | | | active | | | | | | | | | | | | | | | | | | | | | | | | | APPLY | | | | | | | TO THE | | | | | | | AFFECTED | | | | | | clotrimaz | AND | | | | | | ole-betam | SURROUNDI | | | | | | ethasone | NG AREAS | | | | | | 1 %-0.05 | OF SKIN | | | | | | % topical | BY | | | | | | cream | TOPICAL | | | | | | | ROUTE 2 | | | | | | | TIMES PER | | | | | | | DAY IN | | | | | | | THE | | | | | | | MORNING | | | | | | | AND | | | | | | | EVENING | | | | | | | FOR 2 | | | | | | | WEEKS | | | | | | | | | | | | | | | | | | | | | | | | | | | | | | | | | | | | | | | | | | | | | | | | | | | | | | | | | | | | | + + + + + + + | | | | | completed | | | | | | | | | | | | | 08/04/202 | | | | | | | 0 | | | | | | | | | | | | | | | | | | | | | | | | | levothyro | | | | | | | xine 150 | | | | | | | mcg | | | | | | | tablet | | | | | | | | | | | | | | | | | | | | | | | | | | | | | | | | | | | | | | | | | | | | | | | | | | | | | | | | | | | | | | | | | | | | | | | | | | | | + + + + + + + | | | | | active | | | | | | | | | | | | | | | | | | | | | | | | | | | | | | | | | | | | | | | | | | | | | budesonid | | | | | | | e 0.5 | | | | | | | mg/2 mL | | | | | | | suspensio | | | | | | | n for | | | | | | | nebulizat | | | | | | | ion | | | | | | | | | | | | | | | | | | | | | | | | | | | | | | | | | | | | | | | | | | | | | | | | | | | | | | | | | | | | | | | | | | | | | | | | | | | | + + + + + + + | | | | | completed | | | | | | | | | | | | | 08/04/202 | | | | | | | 0 | | | | | | | | | | | | | | | | | | | | | | | | | mupirocin | | | | | | | 2 % | | | | | | | topical | | | | | | | ointment | | | | | | | | | | | | | | | | | | | | | | | | | | | | | | | | | | | | | | | | | | | | | | | | | | | | | | | | | | | | | | | | | | | | | | | | | | | | + + + + + + + | | | | | active | | | | | | | | | | | | | | | | | | | | | | | | | | | | | | | | | | | | | | | | | | | | | furosemid | | | | | | | e 20 mg | | | | | | | tablet | | | | | | | | | | | | | | | | | | | | | | | | | | | | | | | | | | | | | | | | | | | | | | | | | | | | | | | | | | | | | | | | | | | | | | | | | | | | + + + + + + + | | | | | active | | | | | | | | | | | | | | | | | | | | | | | | | Take | | | | | | | 1 tablet | | | | | | | every day | | | | | | Aspir-81 | by oral | | | | | | mg | route. | | | | | | tablet,de | | | | | | | layed | | | | | | | release | | | | | | | | | | | | | | | | | | | | | | | | | | | | | | | | | | | | | | | | | | | | | | | | | | | | | | | | | | | | | | | | | | | | | | | | | | | | + + + + + + + | | | | | active | | | | | | | | | | | | | | | | | | | | | | | | | | | | | | | | | | | | | | | | | | | | | levofloxa | | | | | | | wilder 500 | | | | | | | mg tablet | | | | | | | | | | | | | | | | | | | | | | | | | | | | | | | | | | | | | | | | | | | | | | | | | | | | | | | | | | | | | | | | | | | | | | | | | | | | + + + + + + + | | | | | completed | | | | | | | | | | | | | 08/04/202 | | | | | | | 0 | | | | | | | | | | | | | | | | | | | | | | | | | levofloxa | | | | | | | wilder 750 | | | | | | | mg tablet | | | | | | | | | | | | | | | | | | | | | | | | | | | | | | | | | | | | | | | | | | | | | | | | | | | | | | | | | | | | | | | | | | | | | | | | | | | | + + + + + + + | | | | | active | | | | | | | | | | | | | | | | | | | | | | | | | | | | | | | | | | | | | | | | | | | | | scopolami | | | | | | | ne 1 mg | | | | | | | over 3 | | | | | | | days | | | | | | | transderm | | | | | | | al patch | | | | | | | | | | | | | | | | | | | | | | | | | | | | | | | | | | | | | | | | | | | | | | | | | | | | | | | | | | | | | | | | | | | | | | | | | | | | + + + + + + + | | | | | completed | | | | | | | | | | | | | 08/04/202 | | | | | | | 0 | | | | | | | | | | | | | | | | | | | | | | | | | ondansetr | | | | | | | on 4 mg | | | | | | | disintegr | | | | | | | ating | | | | | | | tablet | | | | | | | | | | | | | | | | | | | | | | | | | | | | | | | | | | | | | | | | | | | | | | | | | | | | | | | | | | | | | | | | | | | | | | | | | | | | + + + + + + + | | | | | active | | | | | | | | | | | | | | | | | | | | | | | | | | | | | | | | | | | | | | | | | | | | | cefdinir | | | | | | | 300 mg | | | | | | | capsule | | | | | | | | | | | | | | | | | | | | | | | | | | | | | | | | | | | | | | | | | | | | | | | | | | | | | | | | | | | | | | | | | | | | | | | | | | | | + + + + + + + | | | | | completed | | | | | | | | | | | | | 08/04/202 | | | | | | | 0 | | | | | | | | | | | | | | | | | | | | | | | | | dextrose | | | | | | | 5 % and | | | | | | | 0.45 % | | | | | | | sodium | | | | | | | chloride | | | | | | | intraveno | | | | | | | us | | | | | | | solution | | | | | | | | | | | | | | | | | | | | | | | | | | | | | | | | | | | | | | | | | | | | | | | | | | | | | | | | | | | | | | | | | | | | | | | | | | | | + + + + + + + | | | | | active | | | | | | | | | | | | | | | | | | | | | | | | | | | | | | | | | | | | | | | | | | | | | doxycycli | | | | | | | ne | | | | | | | hyclate | | | | | | | 100 mg | | | | | | | tablet | | | | | | | | | | | | | | | | | | | | | | | | | | | | | | | | | | | | | | | | | | | | | | | | | | | | | | | | | | | | | | | | | | | | | | | | | | | | + + + + + + + | | | | | active | | | | | | | | | | | | | | | | | | | | | | | | | Take | | | | | | | 10 mL | | | | | | | twice a | | | | | | ranitidin | day by | | | | | | e 15 | oral | | | | | | mg/mL | route as | | | | | | oral | directed. | | | | | | syrup | | | | | | | | | | | | | | | | | | | | | | | | | | | | | | | | | | | | | | | | | | | | | | | | | | | | | | | | | | | | | | | | | | | | | | | | | | | | + + + + + + + | | | | | completed | | | | | | | | | | | | | 08/04/202 | | | | | | | 0 | | | | | | | | | | | | | | | | | | | | | | | | | amoxicill | | | | | | | in 875 | | | | | | | mg-potass | | | | | | | ium | | | | | | | clavulana | | | | | | | te 125 mg | | | | | | | tablet | | | | | | | | | | | | | | | | | | | | | | | | | | | | | | | | | | | | | | | | | | | | | | | | | | | | | | | | | | | | | | | | | | | | | | | | | | | | + + + + + + + | | | | | completed | | | | | | | | | | | | | 08/04/202 | | | | | | | 0 | | | | | | | | | | | | | | | | | | | | | | | | | ceftriaxo | | | | | | | ne 2 gram | | | | | | | solution | | | | | | | for | | | | | | | injection | | | | | | | | | | | | | | | | | | | | | | | | | | | | | | | | | | | | | | | | | | | | | | | | | | | | | | | | | | | | | | | | | | | | | | | | | | | | + + + + + + + | | | | | active | | | | | | | | | | | | | | | | | | | | | | | | | TAKE | | | | | | | 1 TABLET | | | | | | | BY MOUTH | | | | | | cyclobenz | EVERY 8 | | | | | | aprine 5 | HOURS | | | | | | mg tablet | NEEDED | | | | | | | | | | | | | | | | | | | | | | | | | | | | | | | | | | | | | | | | | | | | | | | | | | | | | | | | | | | | | | | | | | | | | | | | | | | + + + + + + + | | | | | active | | | | | | | | | | | | | | | | | | | | | | | | | Take | | | | | | | 1 tablet | | | | | | | twice a | | | | | | metoprolo | day by | | | | | | l | oral | | | | | | tartrate | route. | | | | | | 25 mg | | | | | | | tablet | | | | | | | | | | | | | | | | | | | | | | | | | | | | | | | | | | | | | | | | | | | | | | | | | | | | | | | | | | | | | | | | | | | | | | | | | | | | + + + + + + + | | | | | completed | | | | | | | | | | | | | 08/04/202 | | | | | | | 0 | | | | | | | | | | | | | | | | | | | | | | | | | hydrocodo | | | | | | | ne 7.5 | | | | | | | mg-acetam | | | | | | | inophen | | | | | | | 325 mg/15 | | | | | | | mL oral | | | | | | | solution | | | | | | | | | | | | | | | | | | | | | | | | | | | | | | | | | | | | | | | | | | | | | | | | | | | | | | | | | | | | | | | | | | | | | | | | | | | | + + + + + + + | | | | | active | | | | | | | | | | | | | | | | | | | | | | | | | | | | | | | | | | | | | | | | | | | | | Brovana | | | | | | | 15 mcg/2 | | | | | | | mL | | | | | | | solution | | | | | | | for | | | | | | | nebulizat | | | | | | | ion | | | | | | | | | | | | | | | | | | | | | | | | | | | | | | | | | | | | | | | | | | | | | | | | | | | | | | | | | | | | | | | | | | | | | | | | | | | | + + + + + + + | | | | | active | | | | | | | | | | | | | | | | | | | | | | | | | | | | | | | | | | | | | | | | | | | | | pantopraz | | | | | | | ole DR 40 | | | | | | | mg | | | | | | | granules | | | | | | | delayed-r | | | | | | | elease | | | | | | | for susp | | | | | | | in packet | | | | | | | | | | | | | | | | | | | | | | | | | | | | | | | | | | | | | | | | | | | | | | | | | | | | | | | | | | | | | | | | | | | | | | | | | | | | + + + + + + + | | | | | active | | | | | | | | | | | | | | | | | | | | | | | | | | | | | | | | | | | | | | | | | | | | | diclofena | | | | | | | c 1 % | | | | | | | topical | | | | | | | gel | | | | | | | | | | | | | | | | | | | | | | | | | | | | | | | | | | | | | | | | | | | | | | | | | | | | | | | | | | | | | | | | | | | | | | | | | | | | + + + + + + + History of Present Illness None recorded. Physical Exam + + + | | | | | | | | | | | | + + + | | None recorded. | | Notes: | | | | | | | | + + + Review of Systems None recorded. Vitals None Recorded Social History + + + | | Former Smoker (Formerly) | | Smoking Status | | | | | | | | + + + | Sex | Unknown | | | | + + + Functional Status None recorded. Mental Status None recorded. Family History + + + + + + + | Relations | Descripti | Onset Age | of | Resolved | Notes | | hip | on | | this Age | Age | | | | | | | | | | | | | | | | | | | | | | | | | | | | | | + + + + + + + | Father | No | | | | | | | current | | | | | | | problems | | | | | | | or | | | | | | | disabilit | | | | | | | y | | | | | | | | | | | | | | | | | | | | | | | | | | | | | | | | | + + + + + + + | Mother | No | | | | | | | current | | | | | | | problems | | | | | | | or | | | | | | | disabilit | | | | | | | y | | | | | | | | | | | | | | | | | | | | | | | | | | | | | | | | | + + + + + + + Medical History + + + | Condition | Response | | | | + + + | Seizures/Epilepsy | N | | | | + + + | Bleeding Disorder | N | | | | + + + | Relative with stroke/cva | N | | | | + + + | Swelling in legs/feet | N | | | | + + + | HIV or AIDS | N | | | | + + + | Angina | N | | | | + + + | Kidney Stones | N | | | | + + + | Urinary Tract Infection | N | | | | + + + | Breast Cancer | N | | | | + + + | Gastric Reflux | N | | | | + + + | Recent Change in Bowel Habits | N | | | | + + + | Deep Vein Thrombosis | N | | | | + + + | Bloating | N | | | | + + + | Back Pain | N | | | | + + + | Asthma | N | | | | + + + | Alcoholism | N | | | | + + + | Circulation Problems | N | | | | + + + | Breast Pain | N | | | | + + + | Stroke | N | | | | + + + | Diabetes | N | | | | + + + | Constipation | N | | | | + + + | Insomnia | N | | | | + + + | Swelling of Ankles, Feet or Hands | N | | | | | | | + + + | Peptic Ulcer (stomach or duodenal) | N | | | | | | | + + + | Blurred Vision | N | | | | + + + | Cancer | Y | | | | + + + | Colon Polyps | N | | | | + + + | Regurgitation | N | | | | + + + | Headache | N | | | | + + + | Thyroid Problems | N | | | | + + + | Heart Murmur | N | | | | + + + | Good Pastures | N | | | | + + + | Shortness of Breath | N | | | | + + + | Hepatitis | N | | | | + + + | Difficulty Walking | N | | | | + + + | Heart Disease | N | | | | + + + | Yellow Jaundice | N | | | | + + + | Ulcerative Colitis | N | | | | + + + | Rectal Bleeding | N | | | | + + + | Muscle Pain | N | | | | + + + | GERD | N | | | | + + + | Complication To Anesthesia | N | | | | + + + | Breast Lump | N | | | | + + + | Lung Disease | N | | | | + + + | Glaucoma | N | | | | + + + | Pancreatitis | N | | | | + + + | Gastrointestinal Disease | N | | | | + + + | Blood in Urine | N | | | | + + + | Recent Weight Change | N | | | | + + + | Depression | N | | | | + + + | Cold feet and legs | N | | | | + + + | Wheezing | N | | | | + + + | Sores on legs | N | | | | + + + | Warfarin Management | N | | | | + + + | Difficulty Swallowing | N | | | | + + + | Fatigue | N | | | | + + + | Rheumatic Fever | N | | | | + + + | Black, Tarry Stools | N | | | | + + + | High Blood Pressure | Y | | | | + + + | Frequent Urination | N | | | | + + + | Discolored feet and legs | N | | | | + + + | Numbness | N | | | | + + + | Aortic Aneurysm | N | | | | + + + | STOMACH OR GI ULCERS | N | | | | + + + | Kidney Failure | N | | | | + + + | Emphysema | N | | | | + + + | Gallbladder disease | N | | | | + + + | Fever | N | | | | + + + | Spitting up Blood | N | | | | + + + | Anemia | N | | | | + + + | Mouth Sores | N | | | | + + + | Kidney Disease | N | | | | + + + | Diarrhea | N | | | | + + + | Palpitation | N | | | | + + + | Hearing Loss | N | | | | + + + | Blood Clots | N | | | | + + + | Diverticulitis | N | | | | + + + | High Cholesterol | N | | | | + + + | Abdominal Pain | N | | | | + + + | Leg or Foot Ulcers | N | | | | + + + | Memory Loss or Confusion | N | | | | + + + | Chronic or frequent cough | N | | | | + + + | Burning with Urination | N | | | | + + + | Bleeding or Bruising tendency | N | | | | + + + | Enlarged Glands | N | | | | + + + | Excessive Thirst or Urination | N | | | | + + + | Ringing in Ears | N | | | | + + + | Nausea or Vomiting | N | | | | + + + | Osteoporosis | N | | | | + + + | Poor Appetite | N | | | | + + + | Hiatal Hernia | N | | | | + + + | Loss of Appetite | N | | | | + + + | Varicose Veins | N | | | | + + + | Reflux | N | | | | + + + | Mitral Valve Prolapse | N | | | | + + + | Arthritis | N | | | | + + + | Liver Disease | N | | | | + + + | Peripheral Arterial Disease | N | | | | + + + | Itching | N | | | | + + + | Gallstones | N | | | | + + + | Peripheral Vascular Disease (PVD) | N | | | | | | | + + + | Elevated Cholesterol | N | | | | + + + | Gout | N | | | | + + + | Joint Pain or Swelling | N | | | | + + + | Abnormal Mammogram | N | | | | + + + | Sexually Transmitted Disease | N | | | | + + + | Phlebitis | N | | | | + + + | Blood Transfusions | N | | | | + + + | Angioplasty (balloon) | N | | | | + + + | Heartburn | N | | | | + + + | Crohns Disease | N | | | | + + + | Heat or cold intolerance | N | | | | + + + | Belching | N | | | | + + + Gynecological History No gynecological history recorded. Obstetrics History GPAL: G 3 P 0 0 0 0 Immunizations None recorded. Past Encounters None Reported. Goals Section + + + + + + + | Goal | Descripti | Status | Start | Updated | Updated | | | on | | Date | by | on | | | | | | | | | | | | | | | | | | | | | | | | | | | | | + + + + + + + + + | None Recorded | + + Health Concerns Section + + | Related Observation | + + | None Recorded | + + + + + + + | Concern | Status | Updated by | Updated on | | | | | | | | | | | | | | | | + + + + + | None Recorded | | | | | | | | | | | | | | | | | | | + + + + +"
[2021-01-07 16:00] VITALS: BP 106/43
[2021-01-07 20:00] VITALS: BP 113/47
--- NOTE | 2021-01-07 20:00 | NUR ---
PT SITTING UP IN BED WITHOUT DISTRESS, AOX4. REQUESTED AND GIVEN NORCO FOR PAIN WITH HS MEDS VIA PEG TUBE. PT INCONTINENT OF URINE, CHANGED LINENS AND PROVIDED SHAVON CARE. DENIES OTHER NEEDS AT THIS TIME. CL IN REACH
--- NOTE | 2021-01-08 02:00 | NUR ---
PT REQUESTED AND GIVEN NORCO FOR PAIN. ATTEMPTED TO SUCTION PT AT THIS TIME WITH VERY LITTLE SPUTUM OUT. PT REQUESTED PRN BREATHING TRX FOR CONGESTION. CALLED RESP WHO CAME TO BEDSIDE AND GAVE TREATMENT AND SUCTIONED PT. PT DENIES OTHER NEEDS AT THIS TIME. CL IN REACH
[2021-01-08 04:00] VITALS: BP 113/53
[2021-01-08 06:20] LABS: BASOPHILS 0.6 % (0-2); EOSINOPHILS 11.8 % (0-7); HEMATOCRIT 28.9 % (36.0-48.0); HEMOGLOBIN 9.3 g/dL (12-16); LYMPHOCYTES 25.1 % (15-50); MCH 26.8 pg (26.0-34.0); MCHC 32.1 g/dL (31.0-37.0); MCV 83.5 fL (80.0-100.0); MEAN PLATELET VOLUME 6.6 fL (7.4-10.4); MONOCYTES 6.9 % (2-11); NEUTROPHILS 55.6 % (40-80); PLATELET COUNT 500 10x3/uL (130-400); RBC 3.47 10x6/uL (4.00-5.40); WBC 6.8 10x3/uL (4.8-10.8)
[2021-01-08 07:02] LABS: ALBUMIN 2.5 g/dL (3.4-5.0); ALKALINE PHOSPHATASE 103 U/L (30-120); ALT (SGPT) 16 U/L (10-68); BILIRUBIN - TOTAL 0.17 mg/dL (0.2-1.3); CALC OSMOLALITY 269 mosm/kg (275-300); CALCIUM 9.1 mg/dL (8.5-10.1); CARBON DIOXIDE 31.8 mmol/L (21.0-32.0); CHLORIDE - SERUM 99 mmol/L (98-107); CREATININE - SERUM 0.6 mg/dL (0.6-1.3); GLUCOSE 142 mg/dL (74-106); POTASSIUM - SERUM 4.6 mmol/L (3.5-5.1); PROTEIN - SERUM 7.3 g/dL (6.4-8.2); SODIUM 133 mmol/L (136-145); UREA NITROGEN 17 mg/dL (7-18); eGFR NON AFRICAN AMERICAN > 90 mL/min (90-120)
--- NOTE | 2021-01-08 09:25 | NUR ---
PT SITTING UP IN BED WATCHING TV. RESP EVEN AND UNLABORED. DENIES PAIN AT THIS TIME. TRACH IN PLACE WITH TRACH COLLAR, O2 @ 10. O2 SATS 96-98%. PEG TUBE INTACT TO LEFT UPPER QUAD WITH OSMOLITE 1.5 INFUSING @ 40ML/HR. PT YA FEEDINGS WELL. NO RESIDUAL. PT DENIES FURTHER NEEDS AT THIS TIME. AM MEDICATIONS ADMINISTERED PER MD ORDERS AT THIS TIME. CL WITHIN REACH. ENCOURAGED TO CALL WITH NEEDS. CONTINUE POC
[2021-01-08 09:26] VITALS: BP 125/50
--- NOTE | 2021-01-08 14:35 | NUR ---
Nutrition reassessment: Pt sleeping at time of RD visit Osmolite 1.5 mary continues at 40 ml/hr goal Labs reviewed; Na low Wt: 125# on 12/23/20 Strict NPO with frequent suctioning Estimated needs remain the same as initial assessment on 12/23/20 Nutrition diagnosis, goals are the same as previous reassessment on 12/30/20 Nutrition interventions: Continue TF of osmolite 1.5 mary @ 40 ml/hr with current flush Recommendations: RDN will order wt x 3 per week. Follow-up: 01/14/21
[2021-01-08 14:41] VITALS: BP 110/38
[2021-01-08 17:41] VITALS: BP 132/67
--- NOTE | 2021-01-08 18:15 | NUR ---
SUCTIONED PER PATIENT REQUEST. SMALL AMOUNT OF WHITISH SPUTUM RECOVERD. PATIENT ABLE TO COUGH AND CLEAR AIRWAY.
[2021-01-08 20:00] VITALS: BP 108/48
--- NOTE | 2021-01-08 20:00 | NUR ---
ALERT RESTING IN BED, DENIES NEEDS AT THSI TIME, SEE SHIFT ASSESSMENT, TRACH COLLAR IN PLACE WITH 02 AT 10L, O2 SAT 96%, CALL LIGHT IN REAC
[2021-01-09] VITALS: BP 148/64
[2021-01-09 04:00] VITALS: BP 108/50
[2021-01-09 07:50] VITALS: BP 119/52
--- NOTE | 2021-01-09 11:19 | NUR ---
DECREASED TO 30% TRACH COLLAR. SAT 94% HR 97
[2021-01-09 12:17] VITALS: BP 118/52
--- NOTE | 2021-01-09 13:09 | MORECARE ---
CASE MANAGEMENT DISCHARGE SUMMARY PATIENT: CHON LUI UNIT: [id number] ADM DATE: 12/21/20 AGE: 70 : 50 SEX: F ROOM/BED: D.2228 AUTHOR: MONET,DOC PHYSICIAN: REFERRING PHYSICIAN: CHERELLE NAVARRETE MD DATE OF SERVICE: 01/09/21 Case Management Discharge Planning Summary COMMENTS ENTERED DATE: 01/01/21 13:35 CT COMMENT TYPE: Discharge Planning REVIEWER: Ida WHITE WITH [facility] HAS VISITED WITH PATIENT AND FAMILY TODAY. I AM FAXING CLINICALS TO THE [facility] AND THEY ARE CONSIDERING TAKING HER. I AM WAITING CALL BACK FROM THEM. SHE WILL NEED TO BE WEANED TO LESS THAN 30% OXYGEN BEFORE SHE COULD DISCHARGE TO NURSING FACILITY. ENTERED DATE: 12/30/20 14:32 CT COMMENT TYPE: Discharge Planning REVIEWER: Magaly Duran [facility] has clinically denied the patient. Will try another facility. ENTERED DATE: 12/30/20 11:58 CT COMMENT TYPE: Discharge Planning REVIEWER: Magaly Duran PER DR GÓMEZ THE PATIENT NEEDS TO GO TO ANOTHER PLACE, I SPOKE WITH JANIYA AT [facility] LAST WEEK AND SENT THE REFERRAL OVER TODAY. DCP REVIEW SUMMARY ANTICIPATED D/C DATE: EXPECTED LOS : CASE STATUS: DCP Initiated INITIAL REVIEW: 12/21/2020 INITIAL REVIEWER: Ida Diaz FINAL DISCHARGE DISPOSITION: : FINAL REVIEWER: FINAL REVIEW DATE: DCP Focus Questions & Answers DCP Screen QUESTION: ANSWER High Risk Factors: : Polypharmacy (greater than 10 meds) DCP Evaluation QUESTION: ANSWER Patient's ability to cope with chronic illness : d. No chronic illness Patient and/or caregiver agree upon recommended discharge plan? : Yes Patient's current cognitive status: : *Oriented to person, place, situation, time and present Functional screen assessment: : Unable to manage ADLs without immediate ongoing assistance Physical Status: : Total care dependent Physical Status: : Mobility impaired Living Arrangements: : Senior Care Facility Other Equipment comments: : TRACH,PEG, RESP VEST Baseline cognitive status: : *Oriented to person, place, situation, time and present Comments: : PULMONARY REQUESTS PATIENT TO GO TO A DIFFERENT NURSING FACILITY . [facility] IS LOOKING AT FOR THEIR FACILITY. Facility / Agency name and contact information from Question 3 (if applicable): : [facility] Would patient like to participate in any Care Coordination programs (if applicable): : Not applicable Mental health screen: : No mental health history DCP Re-evaluation QUESTION: ANSWER Would patient like to participate in any Care Coordination programs (if applicable): : Not applicable PATIENT: CHON LUI ENCOUNTER: [id number] MEDICAL RECORD#: [id number] ADMISSION DATE: 12/21/2020 DISCHARGE DATE: ATTENDING MD: CHERELLE LOERA : AGE: 70 MARITAL STATUS: W DC PLAN ID: [id number] FACILITY: [facility] PRINTED ON: 01/09/21 13:09 CT All edits/amendments must be made on the electronic document DICTATION DATE: 01/09/21 1309 GLOVE OPERATOR: NAHUN 01/09/21 1309 RPT#: [id number] DC DATE: STATUS: ADM IN [facility] [address] [place] [address] END OF REPORT
--- NOTE | 2021-01-09 14:07 | MORECARE ---
CASE MANAGEMENT DISCHARGE SUMMARY PATIENT: CHON LUI UNIT: [id number] ADM DATE: 12/21/20 AGE: 70 : 50 SEX: F ROOM/BED: D.2228 AUTHOR: MONET,DOC PHYSICIAN: REFERRING PHYSICIAN: CHERELLE NAVARRETE MD DATE OF SERVICE: 01/09/21 Case Management Discharge Planning Summary COMMENTS ENTERED DATE: 01/09/21 13:51 CT COMMENT TYPE: Discharge Planning REVIEWER: Ida Diaz UPDATES FAXED TO CHRISTOPHER AT [facility] FOR PLACEMENT FOR THIS PATIENT. [facility] MAY POTENTIALLY TAKE THIS PATIENT. SHE IS AT 35 Fio2 now and should be stable to dc to [facility] when auth is approved. Trach should be changed today per pulmonary order. CM to follow and assist as needed. ENTERED DATE: 01/01/21 13:35 CT COMMENT TYPE: Discharge Planning REVIEWER: Ida Emily WHITE WITH [facility] HAS VISITED WITH PATIENT AND FAMILY TODAY. I AM FAXING CLINICALS TO [facility] AND THEY ARE CONSIDERING TAKING HER. I AM WAITING CALL BACK FROM THEM. SHE WILL NEED TO BE WEANED TO LESS THAN 30% OXYGEN BEFORE SHE COULD DISCHARGE TO NURSING FACILITY. ENTERED DATE: 12/30/20 14:32 CT COMMENT TYPE: Discharge Planning REVIEWER: Magaly Duran [facility] has clinically denied the patient. Will try another facility. ENTERED DATE: 12/30/20 11:58 CT COMMENT TYPE: Discharge Planning REVIEWER: Magaly Duran PER DR GÓMEZ THE PATIENT NEEDS TO GO TO ANOTHER PLACE, I SPOKE WITH JANIYA AT [facility] LAST WEEK AND SENT THE REFERRAL OVER TODAY. DCP REVIEW SUMMARY ANTICIPATED D/C DATE: EXPECTED LOS : CASE STATUS: DCP Initiated INITIAL REVIEW: 12/21/2020 INITIAL REVIEWER: Ida Diaz FINAL DISCHARGE DISPOSITION: : FINAL REVIEWER: FINAL REVIEW DATE: DCP Focus Questions & Answers DCP Screen QUESTION: ANSWER High Risk Factors: : Polypharmacy (greater than 10 meds) DCP Evaluation QUESTION: ANSWER Patient's ability to cope with chronic illness : d. No chronic illness Patient and/or caregiver agree upon recommended discharge plan? : Yes Patient's current cognitive status: : *Oriented to person, place, situation, time and present Functional screen assessment: : Unable to manage ADLs without immediate ongoing assistance Physical Status: : Total care dependent Physical Status: : Mobility impaired Living Arrangements: : Long Term Facility Other Equipment comments: : TRACH,PEG, RESP VEST Baseline cognitive status: : *Oriented to person, place, situation, time and present Comments: : PULMONARY REQUESTS PATIENT TO GO TO A DIFFERENT NURSING FACILITY . [facility] IS LOOKING AT FOR THEIR FACILITY. Facility / Agency name and contact information from Question 3 (if applicable): : [facility] Would patient like to participate in any Care Coordination programs (if applicable): : Not applicable Mental health screen: : No mental health history DCP Re-evaluation QUESTION: ANSWER Would patient like to participate in any Care Coordination programs (if applicable): : Not applicable PATIENT: CHON LUI ENCOUNTER: [id number] MEDICAL RECORD#: [id number] ADMISSION DATE: 12/21/2020 DISCHARGE DATE: ATTENDING MD: CHERELLE LOERA : AGE: 70 MARITAL STATUS: W DC PLAN ID: [id number] FACILITY: [facility] PRINTED ON: 01/09/21 14:07 CT All edits/amendments must be made on the electronic document DICTATION DATE: 01/09/211406 MANUFACTURING TEST TECHNICIAN: NAHUN 01/09/21 140 RPT#: [id number] DC DATE: STATUS: ADM IN [facility] [address] [place] [address] END OF REPORT
--- NOTE | 2021-01-09 14:23 | NUR ---
1405-- CHANGED TRACH TO #6 SHILLEY FENESTRATED CUFFLESS AT BEDISIDE. NO ISSUES AND PATIENT MAINTAIN A SAT OF 94% AFTER CHANGE OUT.
[2021-01-09 17:07] VITALS: BP 117/72
[2021-01-09 20:00] VITALS: BP 153/59
[2021-01-10] VITALS (7 sets, daily range): BP systolic 110–151; BP diastolic 46–95
--- NOTE | 2021-01-10 07:40 | NUR ---
ALERT AND ORIENTED. ASSESSMENT COMPLETE. DENIES NEEDS. BED LOW. CALL COBB AND PERSONAL ITEMS IN REACH. WILL CONTINUE TO MONITOR.
--- NOTE | 2021-01-10 10:32 | NUR ---
PATIENT AGREED TO GET UP TO BEDSIDE AND THEN TO CHAIR. PATIENT WAS MOD ASST TO GET UP TO BEDSIDE. PATIENT STARTED TO PUSH HERSELF BACKWARDS TO LAY DOWN AND THEN REFUSED TO KEEP TRYING TO SIT UP.
[2021-01-10 10:50] LABS: BASOPHILS 0.7 % (0-2); EOSINOPHILS 5.6 % (0-7); HEMATOCRIT 31.3 % (36.0-48.0); LYMPHOCYTES 21.8 % (15-50); MCH 26.5 pg (26.0-34.0); MEAN PLATELET VOLUME 6.3 fL (7.4-10.4); MONOCYTES 5.4 % (2-11); NEUTROPHILS 66.5 % (40-80); PLATELET COUNT 534 10x3/uL (130-400); RBC 3.77 10x6/uL (4.00-5.40); WBC 9.3 10x3/uL (4.8-10.8)
[2021-01-10 11:00] LABS: ALBUMIN 2.6 g/dL (3.4-5.0); ALKALINE PHOSPHATASE 118 U/L (30-120); ALT (SGPT) 22 U/L (10-68); BILIRUBIN - TOTAL 0.15 mg/dL (0.2-1.3); CALC OSMOLALITY 278 mosm/kg (275-300); CALCIUM 9.1 mg/dL (8.5-10.1); CARBON DIOXIDE 33.5 mmol/L (21.0-32.0); CHLORIDE - SERUM 100 mmol/L (98-107); CREATININE - SERUM 0.6 mg/dL (0.6-1.3); GLUCOSE 117 mg/dL (74-106); POTASSIUM - SERUM 4.4 mmol/L (3.5-5.1); PROTEIN - SERUM 7.7 g/dL (6.4-8.2); SODIUM 138 mmol/L (136-145); UREA NITROGEN 17 mg/dL (7-18); eGFR NON AFRICAN AMERICAN > 90 mL/min (90-120)
--- NOTE | 2021-01-10 12:21 | NUR ---
SUCTION PERFORMED PER PATIENT REQUEST. ALSO REQUESTING PRN BREATHING TREATMENT. RT CALEB NOTIFIED.
--- NOTE | 2021-01-10 18:42 | NUR ---
CALLED RT TO PATIENT'S ROOM PER PATIENT REQUEST FOR BREATHING TX.
--- NOTE | 2021-01-11 03:15 | NUR ---
I have reviewed this patient and I concur with the Shift Assessment completed by the Licensed Practical Nurse today this shift.
[2021-01-11 05:38] VITALS: BP 131/58
--- NOTE | 2021-01-11 09:10 | NUR ---
AAOX4 UPON ENTERING. ADMINISTERED MEDICATIONS VIA PEG TUBE, TOLERATED WELL. SUCTIONED PER REQUEST. SITUATED COMFORTABLY IN BED. DENIES FURTHER NEEDS. BED IN LOWEST POSITION, BED RAILS X2, CALL LIGHT WITHIN REACH. WILL CONTINUE POC. ASSESSMENT PERFORMED AT THIS TIME.
[2021-01-11 10:28] VITALS: BP 139/66
--- NOTE | 2021-01-11 11:38 | NUR ---
ADMINISTERED MEDICATION VIA PEG TUBE. TOLERATED WELL. DENIES ANY NEEDS AT THIS TIME. WILL CONTINUE POC.
[2021-01-11 14:19] VITALS: BP 113/42
--- NOTE | 2021-01-11 16:17 | NUR ---
PRN TYLENOL FOR HEADACHE. VIA PEG TUBE, NO DIFFICULTIES. RESTING COMFORTABLY. DENIES ANY NEEDS AT THIS TIME. WILL CONTINUE POC.
--- NOTE | 2021-01-11 16:35 | NUR ---
I have reviewed this patient and I concur with the Shift Assessment completed by the Licensed Practical Nurse today this shift.
--- NOTE | 2021-01-11 17:43 | NUR ---
MEDICINCE VIA PEG TUBE, TOLERATED WELL. CHANGED KANGAROO BAGS FILLED WITH WATER AND OSMOLITE 1.5 PER ORDER. RESTING COMFORTABLY. DENIES FURTHER NEEDS AT THIS TIME. WILL CONTINUE POC.
[2021-01-11 18:36] VITALS: BP 121/59
[2021-01-11 21:03] VITALS: BP 101/62
--- NOTE | 2021-01-12 02:58 | NUR ---
I have reviewed this patient and I concur with the Shift Assessment completed by the Licensed Practical Nurse today this shift.
[2021-01-12 05:13] VITALS: BP 126/62
[2021-01-12 09:56] VITALS: BP 136/83
--- NOTE | 2021-01-12 13:51 | NUR ---
PATIENT REQUESTED TO BE SUCTIONED AGAIN, NO OTHER NEEDS AT THIS TIME, ENCOURAGED PATIENT TO COUGH SO THAT I COULD GET OUT MUCH POSSIBLE. CL IN REACH CONTINUE WITH PLAN OF CARE
[2021-01-12 14:06] VITALS: BP 118/52
--- NOTE | 2021-01-12 18:00 | NUR ---
I have reviewed this patient and I concur with the Shift Assessment completed by the Licensed Practical Nurse today this shift.
[2021-01-12 18:38] VITALS: BP 68/50
[2021-01-12 20:00] VITALS: BP 103/42
[2021-01-13] VITALS: BP 121/54
--- NOTE | 2021-01-13 02:50 | NUR ---
I have reviewed this patient and I concur with the Shift Assessment completed by the Licensed Practical Nurse today this shift.
[2021-01-13 04:00] VITALS: BP 62/53
[2021-01-13 10:02] VITALS: BP 111/41
[2021-01-13 13:32] VITALS: BP 103/40
--- NOTE | 2021-01-13 15:54 | NUR ---
I have reviewed this patient and I concur with the Shift Assessment completed by the Licensed Practical Nurse today this shift.
[2021-01-13 16:52] VITALS: BP 122/47
[2021-01-13 20:00] VITALS: BP 103/40
[2021-01-14 04:00] VITALS: BP 107/48
[2021-01-14 06:37] LABS: ALBUMIN 2.6 g/dL (3.4-5.0); ALKALINE PHOSPHATASE 114 U/L (30-120); ALT (SGPT) 27 U/L (10-68); BASOPHILS 0.7 % (0-2); BILIRUBIN - TOTAL 0.19 mg/dL (0.2-1.3); CALC OSMOLALITY 272 mosm/kg (275-300); CALCIUM 8.7 mg/dL (8.5-10.1); CARBON DIOXIDE 37.7 mmol/L (21.0-32.0); CHLORIDE - SERUM 97 mmol/L (98-107); CREATININE - SERUM 0.6 mg/dL (0.6-1.3); EOSINOPHILS 3.7 % (0-7); GLUCOSE 105 mg/dL (74-106); HEMATOCRIT 29.7 % (36.0-48.0); HEMOGLOBIN 9.7 g/dL (12-16); LYMPHOCYTES 26.2 % (15-50); MCH 27.1 pg (26.0-34.0); MCHC 32.6 g/dL (31.0-37.0); MCV 83.2 fL (80.0-100.0); MEAN PLATELET VOLUME 6.9 fL (7.4-10.4); MONOCYTES 8.2 % (2-11); NEUTROPHILS 61.2 % (40-80); PLATELET COUNT 463 10x3/uL (130-400); PROTEIN - SERUM 7.6 g/dL (6.4-8.2); RBC 3.57 10x6/uL (4.00-5.40); RDW 17.3 % (11.5-14.5); SODIUM 135 mmol/L (136-145); UREA NITROGEN 21 mg/dL (7-18); WBC 7.2 10x3/uL (4.8-10.8); eGFR NON AFRICAN AMERICAN > 90 mL/min (90-120)
[2021-01-14 08:49] VITALS: BP 129/44
--- NOTE | 2021-01-14 11:42 | MORECARE ---
CASE MANAGEMENT DISCHARGE SUMMARY PATIENT: CHON LUI UNIT: [id number] ADM DATE: 12/21/20 AGE: 70 : 50 SEX: F ROOM/BED: D.2228 AUTHOR: MONET,DOC PHYSICIAN: REFERRING PHYSICIAN: CHERELLE NAVARRETE MD DATE OF SERVICE: 01/14/21 Case Management Discharge Planning Summary COMMENTS ENTERED DATE: 01/14/21 11:33 CT COMMENT TYPE: Discharge Planning REVIEWER: Ida Diaz REFERRAL FAXED TO [facility] FOR PLACEMENT. WAITING CALL BACK. ENTERED DATE: 01/09/21 13:51 CT COMMENT TYPE: Discharge Planning REVIEWER: Ida Emily UPDATES FAXED TO CHRISTOPHER AT [facility] FOR PLACEMENT FOR THIS PATIENT. [facility] GARCIA MAY POTENTIALLY TAKE THIS PATIENT. SHE IS AT 35 Fio2 now and should be stable to dc to long term when auth is approved. Trach should be changed today per pulmonary order. CM to follow and assist as needed. ENTERED DATE: 01/01/21 13:35 CT COMMENT TYPE: Discharge Planning REVIEWER: Ida WHITE WITH [facility] HAS VISITED WITH PATIENT AND FAMILY TODAY. I AM FAXING CLINICALS TO THE [facility] AND THEY ARE CONSIDERING TAKING HER. I AM WAITING CALL BACK FROM THEM. SHE WILL NEED TO BE WEANED TO LESS THAN 30% OXYGEN BEFORE SHE COULD DISCHARGE TO NURSING FACILITY. ENTERED DATE: 12/30/20 14:32 CT COMMENT TYPE: Discharge Planning REVIEWER: Magaly Milton [facility] has clinically denied the patient. Will try another facility. ENTERED DATE: 12/30/20 11:58 CT COMMENT TYPE: Discharge Planning REVIEWER: Magaly Duran PER DR GÓMEZ THE PATIENT NEEDS TO GO TO ANOTHER PLACE, I SPOKE WITH JANIYA AT [facility] LAST WEEK AND SENT THE REFERRAL OVER TODAY. DCP REVIEW SUMMARY ANTICIPATED D/C DATE: EXPECTED LOS : CASE STATUS: DCP Initiated INITIAL REVIEW: 12/21/2020 INITIAL REVIEWER: Ida Diaz FINAL DISCHARGE DISPOSITION: : FINAL REVIEWER: FINAL REVIEW DATE: DCP Focus Questions & Answers DCP Screen QUESTION: ANSWER High Risk Factors: : Polypharmacy (greater than 10 meds) DCP Evaluation QUESTION: ANSWER Patient's current cognitive status: : *Oriented to person, place, situation, time and present Patient and/or caregiver agree upon recommended discharge plan? : Yes Patient's ability to cope with chronic illness : d. No chronic illness Physical Status: : Mobility impaired Physical Status: : Total care dependent Functional screen assessment: : Unable to manage ADLs without immediate ongoing assistance Living Arrangements: : Prison Facility Baseline cognitive status: : *Oriented to person, place, situation, time and present Other Equipment comments: : TRACH,PEG, RESP VEST Facility / Agency name and contact information from Question 3 (if applicable): : [facility] MORTICIAN Comments: : PULMONARY REQUESTS PATIENT TO GO TO A DIFFERENT NURSING FACILITY . THE [facility] IS LOOKING AT FOR THEIR FACILITY. Would patient like to participate in any Care Coordination programs (if applicable): : Not applicable Mental health screen: : No mental health history DCP Re-evaluation QUESTION: ANSWER Would patient like to participate in any Care Coordination programs (if applicable): : Not applicable PROVIDER NETWORKING REVIEW DATE: 01/14/2021 SERVICE TYPE: Prison Facility REVIEWER: Ida Diaz PATIENT: CHON LUI ENCOUNTER: [id number] MEDICAL RECORD#: [id number] ADMISSION DATE: 12/21/2020 DISCHARGE DATE: ATTENDING MD: CHERELLE LOERA : AGE: 70 MARITAL STATUS: W DC PLAN ID: [id number] FACILITY: [facility] PRINTED ON: 01/14/21 11:42 CT All edits/amendments must be made on the electronic document DICTATION DATE: 01/14/21 1142 CLIENT DEVELOPMENT CONSULTANT: NAHUN 01/14/21 1142 RPT#: [id number] DC DATE: STATUS: ADM IN [facility] [address] [place] [address] END OF REPORT
[2021-01-14 11:56] VITALS: BP 119/51
--- NOTE | 2021-01-14 13:42 | NUR ---
Nutrition reassessment: Pt continues with Osmolite 1.5 mary infusing @ 40 ml/hr with water flush 30 ml/hr via PEG tube. Labs reviewed +BM No new wt since 12/23/20 +BM Osmolite @ 40 ml/hr with 30 ml/hr flush providin kcal, 60 gm protein, 1338 ml fluid per 24 hours Estimated needs based on Actual BW of 124#: [id number] kcal (25-30 ActBW), 56-68 gms protein (1.0-1.2 gm/kg ActBW) 2899-7921 ml free fluid Pt is currently meeting 85-102% estimated kcal needs, 88-107% estimated protein needs and 79-95% estimated fluid needs (pt is also getting fluid with medications) Nutrition diagnosis: Remains the same as initial assessment on 12/23/20 Nutrition goals: - Continued TF tolerance of TF at goal rate - Stable dry wt - Meet est fluid needs without fluid overload Nutrition interventions: Recommend getting a current wt on pt to evaluate TF regimen. After new wt please wt pt 3x/week. RDN will follow-up on continued progress toward goals and for any change in condition in 3-5 days.
--- NOTE | 2021-01-14 14:51 | MORECARE ---
CASE MANAGEMENT DISCHARGE SUMMARY PATIENT: CHON LUI UNIT: [id number] ADM DATE: 12/21/20 AGE: 70 : 50 SEX: F ROOM/BED: D.2228 AUTHOR: MONET,DOC PHYSICIAN: REFERRING PHYSICIAN: CHERELLE NAVARRETE MD DATE OF SERVICE: 01/14/21 Case Management Discharge Planning Summary COMMENTS ENTERED DATE: 01/14/21 14:46 CT COMMENT TYPE: Discharge Planning REVIEWER: Ida Diaz CM SPOKE WITH SUZIE ANDREA AND GROUND CREW LINES PERSON FELIBERTO AT [facility]. THEY COULD HAVE HER SUCTIONING ORDERED EVERY 4 HRS AND PRN AT THEIR FACILITY. THEY FEEL LIKE SUCTIONING IS NOT THE PROBLEM WITH HER. SHE REFUSES TO WEAR HER VEST. SHE IS ALSO A FULL CODE, THEREFORE IF HER SATS DROP THEY HAVE TO CALL EMS. PATIENT WANTS TO RETURN BACK TO [facility]. CM TO FOLLOW AND ASSIST NEEDED. ENTERED DATE: 01/14/21 11:33 CT COMMENT TYPE: Discharge Planning REVIEWER: Ida Diaz REFERRAL FAXED TO [facility] FOR PLACEMENT. WAITING CALL BACK. ENTERED DATE: 01/09/21 13:51 CT COMMENT TYPE: Discharge Planning REVIEWER: Ida Diaz UPDATES FAXED TO CHRISTOPHER AT [facility] FOR PLACEMENT FOR THIS PATIENT. [facility] MAY POTENTIALLY TAKE THIS PATIENT. SHE IS AT 35 Fio2 now and should be stable to dc to assisted when auth is approved. Trach should be changed today per pulmonary order. CM to follow and assist as needed. ENTERED DATE: 01/01/21 13:35 CT COMMENT TYPE: Discharge Planning REVIEWER: Ida WHITE WITH [facility] HAS VISITED WITH PATIENT AND FAMILY TODAY. I AM FAXING CLINICALS TO THE [facility] AND THEY ARE CONSIDERING TAKING HER. I AM WAITING CALL BACK FROM THEM. SHE WILL NEED TO BE WEANED TO LESS THAN 30% OXYGEN BEFORE SHE COULD DISCHARGE TO NURSING FACILITY. ENTERED DATE: 12/30/20 14:32 CT COMMENT TYPE: Discharge Planning REVIEWER: Magaly Duran [facility] has clinically denied the patient. Will try another facility. ENTERED DATE: 12/30/20 11:58 CT COMMENT TYPE: Discharge Planning REVIEWER: Magaly Duran PER DR GÓMEZ THE PATIENT NEEDS TO GO TO ANOTHER PLACE, I SPOKE WITH JANIYA AT [facility] LAST WEEK AND SENT THE REFERRAL OVER TODAY. DCP REVIEW SUMMARY ANTICIPATED D/C DATE: EXPECTED LOS : CASE STATUS: DCP Initiated INITIAL REVIEW: 12/21/2020 INITIAL REVIEWER: Ida Diaz FINAL DISCHARGE DISPOSITION: : FINAL REVIEWER: FINAL REVIEW DATE: DCP Focus Questions & Answers DCP Screen QUESTION: ANSWER High Risk Factors: : Polypharmacy (greater than 10 meds) DCP Evaluation QUESTION: ANSWER Patient's current cognitive status: : *Oriented to person, place, situation, time and present Patient and/or caregiver agree upon recommended discharge plan? : Yes Patient's ability to cope with chronic illness : d. No chronic illness Physical Status: : Mobility impaired Physical Status: : Total care dependent Functional screen assessment: : Unable to manage ADLs without immediate ongoing assistance Living Arrangements: : Care Home Facility Baseline cognitive status: : *Oriented to person, place, situation, time and present Other Equipment comments: : TRACH,PEG, RESP VEST Facility / Agency name and contact information from Question 3 (if applicable): : [facility] INTERMEDIATE Comments: : PULMONARY REQUESTS PATIENT TO GO TO A DIFFERENT NURSING FACILITY . THE [facility] IS LOOKING AT FOR THEIR FACILITY. Would patient like to participate in any Care Coordination programs (if applicable): : Not applicable Mental health screen: : No mental health history DCP Re-evaluation QUESTION: ANSWER Would patient like to participate in any Care Coordination programs (if applicable): : Not applicable PROVIDER NETWORKING REVIEW DATE: 01/14/2021 SERVICE TYPE: Care Home Facility REVIEWER: Ida Diaz PATIENT: CHON LUI ENCOUNTER: [id number] MEDICAL RECORD#: [id number] ADMISSION DATE: 12/21/2020 DISCHARGE DATE: ATTENDING MD: CHERELLE LOERA : AGE: 70 MARITAL STATUS: W DC PLAN ID: [id number] FACILITY: [facility] PRINTED ON: 01/14/21 14:51 CT All edits/amendments must be made on the electronic document DICTATION DATE: 01/14/211449 ADVERTISING MATERIAL DISTRIBUTOR: NAHUN 01/14/21 145 RPT#: [id number] DC DATE: STATUS: ADM IN [facility] [address] [place] [address] END OF REPORT
[2021-01-14 16:31] VITALS: BP 110/49
[2021-01-14 19:35] VITALS: BP 140/52
--- NOTE | 2021-01-15 02:49 | NUR ---
I have reviewed this patient and I concur with the Shift Assessment completed by the Licensed Practical Nurse today this shift.
--- NOTE | 2021-01-15 04:00 | NUR ---
TRACH SUCTION PERFORMED PER REQUEST, PT REPORTS RELIEF. CPOC.
[2021-01-15 05:15] VITALS: BP 134/48
--- NOTE | 2021-01-15 06:47 | NUR ---
TRACH SUCTION PERFORMED PER REQUEST, REPORTS RELIEF. CPOC.
[2021-01-15 08:10] VITALS: BP 107/55
[2021-01-15 11:31] VITALS: BP 121/59
--- NOTE | 2021-01-15 13:58 | NUR ---
REFUSED PT MULPITAL TIMES
[2021-01-15 15:25] VITALS: BP 116/58
[2021-01-15 20:00] VITALS: BP 119/74
--- NOTE | 2021-01-16 03:12 | NUR ---
I have reviewed this patient and I concur with the Shift Assessment completed by the Licensed Practical Nurse today this shift.
--- NOTE | 2021-01-16 03:30 | NUR ---
TRACH SUCTION PERFORMED PER REQUEST. REPORTS RELIEF. SPO2 96% ON 10L. CPOC
[2021-01-16 04:00] VITALS: BP 108/51
[2021-01-16 06:22] LABS: BASOPHILS 0.9 % (0-2); EOSINOPHILS 4.4 % (0-7); HEMATOCRIT 32.3 % (36.0-48.0); HEMOGLOBIN 10.1 g/dL (12-16); LYMPHOCYTES 23.9 % (15-50); MCH 26.3 pg (26.0-34.0); MCHC 31.3 g/dL (31.0-37.0); MCV 83.9 fL (80.0-100.0); MEAN PLATELET VOLUME 6.9 fL (7.4-10.4); NEUTROPHILS 61.8 % (40-80); PLATELET COUNT 469 10x3/uL (130-400); RBC 3.85 10x6/uL (4.00-5.40); RDW 17.6 % (11.5-14.5); WBC 6.6 10x3/uL (4.8-10.8)
[2021-01-16 06:36] LABS: CALC OSMOLALITY 276 mosm/kg (275-300); CALCIUM 9.2 mg/dL (8.5-10.1); CARBON DIOXIDE 33.5 mmol/L (21.0-32.0); CHLORIDE - SERUM 99 mmol/L (98-107); CREATININE - SERUM 0.6 mg/dL (0.6-1.3); GLUCOSE 147 mg/dL (74-106); POTASSIUM - SERUM 4.1 mmol/L (3.5-5.1); SODIUM 136 mmol/L (136-145); UREA NITROGEN 17 mg/dL (7-18); eGFR NON AFRICAN AMERICAN > 90 mL/min (90-120)
--- NOTE | 2021-01-16 07:54 | MORECARE ---
CASE MANAGEMENT DISCHARGE SUMMARY PATIENT: CHON LUI UNIT: [id number] ADM DATE: 12/21/20 AGE: 70 : 50 SEX: F ROOM/BED: D.2217 AUTHOR: MONET,DOC PHYSICIAN: REFERRING PHYSICIAN: CHERELLE NAVARRETE MD DATE OF SERVICE: 01/16/21 Case Management Discharge Planning Summary COMMENTS ENTERED DATE: 01/16/21 7:42 CT COMMENT TYPE: Discharge Planning REVIEWER: Magaly Davisken RECEIVED A MESSAGE FROM AYANA AT [facility] STATING THAT THEY CAN NOT ACCEPT THIS PATIENT. ENTERED DATE: 01/14/21 14:46 CT COMMENT TYPE: Discharge Planning REVIEWER: Ida Diaz CM SPOKE WITH SUZIE ANDREA AND INCENDIARIES SUPERVISOR [facility] THEY COULD HAVE HER SUCTIONING ORDERED EVERY 4 HRS AND PRN AT THEIR FACILITY. THEY FEEL LIKE SUCTIONING IS NOT THE PROBLEM WITH HER. SHE REFUSES TO WEAR HER VEST. SHE IS ALSO A FULL CODE, THEREFORE IF HER SATS DROP THEY HAVE TO CALL EMS. PATIENT [facility]S [facility]. CM TO FOLLOW AND ASSIST NEEDED. ENTERED DATE: 01/14/21 11:33 CT COMMENT TYPE: Discharge Planning REVIEWER: Ida Diaz REFERRAL FAXED TO [facility] FOR PLACEMENT. WAITING CALL BACK. ENTERED DATE: 01/09/21 13:51 CT COMMENT TYPE: Discharge Planning REVIEWER: Ida Diaz UPDATES FAXED TO CHRISTOPHER AT [facility] FOR PLACEMENT FOR THIS PATIENT. [facility] MAY POTENTIALLY TAKE THIS PATIENT. SHE IS AT 35 Fio2 now and should be stable to dc to fdc when auth is approved. Trach should be changed today per pulmonary order. CM to follow and assist as needed. ENTERED DATE: 01/01/21 13:35 CT COMMENT TYPE: Discharge Planning REVIEWER: Ida WHITE WITH [facility] HAS VISITED WITH PATIENT AND FAMILY TODAY. I AM FAXING CLINICALS TO THE [facility] AND THEY ARE CONSIDERING TAKING HER. I AM WAITING CALL BACK FROM THEM. SHE WILL NEED TO BE WEANED TO LESS THAN 30% OXYGEN BEFORE SHE COULD DISCHARGE TO NURSING FACILITY. ENTERED DATE: 12/30/20 14:32 CT COMMENT TYPE: Discharge Planning REVIEWER: Magaly Duran [facility] has clinically denied the patient. Will try another facility. ENTERED DATE: 12/30/20 11:58 CT COMMENT TYPE: Discharge Planning REVIEWER: Magaly Duran PER DR GÓMEZ THE PATIENT NEEDS TO GO TO ANOTHER PLACE, I SPOKE WITH JANIYA AT [facility] LAST WEEK AND SENT THE REFERRAL OVER TODAY. DCP REVIEW SUMMARY ANTICIPATED D/C DATE: EXPECTED LOS : CASE STATUS: DCP Initiated INITIAL REVIEW: 12/21/2020 INITIAL REVIEWER: Ida Diaz FINAL DISCHARGE DISPOSITION: : FINAL REVIEWER: FINAL REVIEW DATE: DCP Focus Questions & Answers DCP Screen QUESTION: ANSWER High Risk Factors: : Polypharmacy (greater than 10 meds) DCP Evaluation QUESTION: ANSWER Patient's ability to cope with chronic illness : d. No chronic illness Patient and/or caregiver agree upon recommended discharge plan? : Yes Patient's current cognitive status: : *Oriented to person, place, situation, time and present Functional screen assessment: : Unable to manage ADLs without immediate ongoing assistance Physical Status: : Total care dependent Physical Status: : Mobility impaired Living Arrangements: : Fdc Facility Other Equipment comments: : TRACH,PEG, RESP VEST Baseline cognitive status: : *Oriented to person, place, situation, time and present Comments: : PULMONARY REQUESTS PATIENT TO GO TO A DIFFERENT NURSING FACILITY . THE [facility] IS LOOKING AT FOR THEIR FACILITY. Facility / Agency name and contact information from Question 3 (if applicable): : [facility] Would patient like to participate in any Care Coordination programs (if applicable): : Not applicable Mental health screen: : No mental health history DCP Re-evaluation QUESTION: ANSWER Would patient like to participate in any Care Coordination programs (if applicable): : Not applicable PROVIDER NETWORKING REVIEW DATE: 01/14/2021 SERVICE TYPE: Fdc Facility REVIEWER: Ida Diaz PATIENT: CHON LUI ENCOUNTER: [id number] MEDICAL RECORD#: [id number] ADMISSION DATE: 12/21/2020 DISCHARGE DATE: ATTENDING MD: CHERELLE LOERA : AGE: 70 MARITAL STATUS: W DC PLAN ID: [id number] FACILITY: [facility] PRINTED ON: 01/16/21 7:54 CT All edits/amendments must be made on the electronic document DICTATION DATE: 01/16/21753 TRANSMISSION SUPERVISOR: NAHUN 01/16/21 075 RPT#: [id number] DC DATE: STATUS: ADM IN [facility] [address] [place] [address] END OF REPORT
[2021-01-16 09:52] VITALS: BP 117/57
[2021-01-16 12:36] VITALS: BP 125/70
[2021-01-16 16:33] VITALS: BP 119/60
[2021-01-16 20:00] VITALS: BP 136/43
[2021-01-17 08:42] VITALS: BP 122/42
--- NOTE | 2021-01-17 10:24 | NUR ---
ADMINISTERED MORNING MEDICATION VIA PEG TUBE, TOELRATED WELL. LEFT SUPINE INCLINED IN BED. DENIES ANY NEEDS AT THIS TIME. BED IN LOWEST POSITION, BED RAILS X2, CALL LIGHT WITHIN REACH. WILL CONTINUE POC. ASSESSMENT PERFORMED AT THIS TIME.
--- NOTE | 2021-01-17 11:39 | MORECARE ---
CASE MANAGEMENT DISCHARGE SUMMARY PATIENT: CHON LUI UNIT: [id number] ADM DATE: 12/21/20 AGE: 70 : 50 SEX: F ROOM/BED: D.2217 AUTHOR: MONET,DOC PHYSICIAN: REFERRING PHYSICIAN: CHERELLE NAVARRETE MD DATE OF SERVICE: 01/17/21 Case Management Discharge Planning Summary COMMENTS ENTERED DATE: 01/17/21 11:33 CT COMMENT TYPE: Discharge Planning REVIEWER: Magaly Roger REACHED OUT TO [facility] ABOUT TRACH PATIENTS SHE WAS AYAAN GTO MAKE A PHONE CALL AND GET BACK WITH ME ENTERED DATE: 01/17/21 11:28 CT COMMENT TYPE: Discharge Planning REVIEWER: Magaly Duran CALLED [facility] [place] AND THEY DO NOT TAKE TRACH PATIENTS ENTERED DATE: 01/16/21 7:42 CT COMMENT TYPE: Discharge Planning REVIEWER: Magaly Roger RECEIVED A MESSAGE FROM AYANA AT [facility] STATING THAT THEY CAN NOT ACCEPT THIS PATIENT. ENTERED DATE: 01/14/21 14:46 CT COMMENT TYPE: Discharge Planning REVIEWER: Ida Diaz CM SPOKE WITH SUZIE ANDREA AND METER/RELAY CRAFTSMAN FELIBERTO AT [facility]. THEY COULD HAVE HER SUCTIONING ORDERED EVERY 4 HRS AND PRN AT THEIR FACILITY. THEY FEEL LIKE SUCTIONING IS NOT THE PROBLEM WITH HER. SHE REFUSES TO WEAR HER VEST. SHE IS ALSO A FULL CODE, THEREFORE IF HER SATS DROP THEY HAVE TO CALL EMS. PATIENT WANTS TO RETURN BACK TO [facility]. CM TO FOLLOW AND ASSIST NEEDED. ENTERED DATE: 01/14/21 11:33 CT COMMENT TYPE: Discharge Planning REVIEWER: Ida Diaz REFERRAL FAXED TO [facility] FOR PLACEMENT. WAITING CALL BACK. ENTERED DATE: 01/09/21 13:51 CT COMMENT TYPE: Discharge Planning REVIEWER: Ida Diaz UPDATES FAXED TO CHRISTOPHER AT [facility] FOR PLACEMENT FOR THIS PATIENT. [facility] MAY POTENTIALLY TAKE THIS PATIENT. SHE IS AT 35 Fio2 now and should be stable to dc to jail when auth is approved. Trach should be changed today per pulmonary order. CM to follow and assist as needed. ENTERED DATE: 01/01/21 13:35 CT COMMENT TYPE: Discharge Planning REVIEWER: Ida Diaz CHRISTOPHER WITH [facility] HAS VISITED WITH PATIENT AND FAMILY TODAY. I AM FAXING CLINICALS TO THE [facility] AND THEY ARE CONSIDERING TAKING HER. I AM WAITING CALL BACK FROM THEM. SHE WILL NEED TO BE WEANED TO LESS THAN 30% OXYGEN BEFORE SHE COULD DISCHARGE TO NURSING FACILITY. ENTERED DATE: 12/30/20 14:32 CT COMMENT TYPE: Discharge Planning REVIEWER: Magaly Guo has clinically denied the patient. Will try another facility. ENTERED DATE: 12/30/20 11:58 CT COMMENT TYPE: Discharge Planning REVIEWER: Magaly CHAHAL DR GÓMEZ THE PATIENT NEEDS TO GO TO ANOTHER PLACE, I SPOKE WITH JANIYA AT [facility] LAST WEEK AND SENT THE REFERRAL OVER TODAY. DCP REVIEW SUMMARY ANTICIPATED D/C DATE: EXPECTED LOS : CASE STATUS: DCP Initiated INITIAL REVIEW: 12/21/2020 INITIAL REVIEWER: Ida Diaz FINAL DISCHARGE DISPOSITION: : FINAL REVIEWER: FINAL REVIEW DATE: DCP Focus Questions & Answers DCP Screen QUESTION: ANSWER High Risk Factors: : Polypharmacy (greater than 10 meds) DCP Evaluation QUESTION: ANSWER Patient and/or caregiver agree upon recommended discharge plan? : Yes Patient's current cognitive status: : *Oriented to person, place, situation, time and present Patient's ability to cope with chronic illness : d. No chronic illness Functional screen assessment: : Unable to manage ADLs without immediate ongoing assistance Physical Status: : Total care dependent Physical Status: : Mobility impaired Living Arrangements: : Snf Facility Other Equipment comments: : TRACH,PEG, RESP VEST Baseline cognitive status: : *Oriented to person, place, situation, time and present Comments: : PULMONARY REQUESTS PATIENT TO GO TO A DIFFERENT NURSING FACILITY . THE [facility] IS LOOKING AT FOR THEIR FACILITY. Facility / Agency name and contact information from Question 3 (if applicable): : [facility] Would patient like to participate in any Care Coordination programs (if applicable): : Not applicable Mental health screen: : No mental health history DCP Re-evaluation QUESTION: ANSWER Would patient like to participate in any Care Coordination programs (if applicable): : Not applicable PROVIDER NETWORKING REVIEW DATE: 01/14/2021 SERVICE TYPE: Snf Facility REVIEWER: Ida Diaz PATIENT: CHON LUI ENCOUNTER: [id number] MEDICAL RECORD#: [id number] ADMISSION DATE: 12/21/2020 DISCHARGE DATE: ATTENDING MD: CHERELLE LOERA : AGE: 70 MARITAL STATUS: W DC PLAN ID: [id number] FACILITY: [facility] PRINTED ON: 01/17/21 11:39 CT All edits/amendments must be made on the electronic document DICTATION DATE: 01/17/21 113 LAYOUT INSPECTOR: NAHUN 01/17/21 1139 RPT#: [id number] DC DATE: STATUS: ADM IN [facility] [address] [place] [address] END OF REPORT
--- NOTE | 2021-01-17 12:24 | NUR ---
RESTING IN BED, EYES CLOSED. BREATHING IS EVEN AND UNLABORED. BED IN LOWEST POSITION, BED RAILS X2, CALL LIGHT WITHIN REACH. WILL CONTINUE POC.
[2021-01-17 12:53] VITALS: BP 116/81
--- NOTE | 2021-01-17 13:54 | NUR ---
Nutrition Follow-up: TF: Osmolite 1.5 @ 40mL + H2O @ 30mL/hr via PEG. Continues to tolerate TF at goal rate. Last BM: 01/16/21 x 5 Wt: 125# (12/23/20)- no new weight Meds noted: reglan, miralax, NaCl, lasix, probiotics Labs reviewed. Recommend continue current TF order. Current TF order meets estimated energy and protein needs. Recommend getting new weight. RD will follow-up 12/21/20.
--- NOTE | 2021-01-17 15:42 | NUR ---
ADMINISTERED MEDICATION VIA PEG TUBE. TOLERATED WELL. RESTING IN BED WITH EYES CLOSED. BED IN LOWEST POSITION, BED RAILS X2, CALL LIGHT WITHIN REACH. WILL CONTINUE POC.
[2021-01-17 17:05] VITALS: BP 120/57
[2021-01-17 21:57] VITALS: BP 138/74
--- NOTE | 2021-01-18 04:03 | NUR ---
MED ADMINISTERED VIA PEG TUBE, TOLERATED WELL. PT CHUCKS CHANGE, INCONTINENT OF URINE. NO OTHER NEEDS AT THE MOMENT WILL CONT POC.
--- NOTE | 2021-01-18 04:38 | NUR ---
I have reviewed this patient and I concur with the Shift Assessment completed by the Licensed Practical Nurse today this shift.
--- NOTE | 2021-01-18 09:00 | NUR ---
ASSESSMENT PER FLOW SHEET. PATIENT IS WITHOUT DISTRESS.MONITOR FOR NEEDS.CALL LIGHT IN REACH
[2021-01-18 09:28] VITALS: BP 133/61
[2021-01-18 12:16] VITALS: BP 125/72
--- NOTE | 2021-01-18 14:16 | NUR ---
PT EDUCATED ON CLEAN SELF SUCTIONED TECHNIQUE....NO QUESTIONS FROM PT VERBAL STATES SHE UNDERSTANDS, WILL FOLLOW UP
--- NOTE | 2021-01-18 14:52 | NUR ---
WANTS TO REST THIS AFTERNOON. BLINDS CLOSED PER PATIENT REQUEST.
[2021-01-18 17:08] VITALS: BP 130/78
--- NOTE | 2021-01-18 19:00 | NUR ---
BEDSIDE REPORT RECEIVED AND CARE OF PT ASSUMED. PT LYING IN [place] POSITION WATCHING TV. TRACH COLLOR IN PLACE AT 10L O2. PEG TUBE PATENT WITH OSMOLITE 1.5 INFUSING AT 40 ML/HR VIA FEEDING PUMP. WILL MONITOR FOR NEEDS.
[2021-01-18 20:00] VITALS: BP 105/52
--- NOTE | 2021-01-18 21:20 | NUR ---
HS MEDICATIONS GIVEN VIA PEG TUBE. TUBE FLUSHED WITH 30 ML WATER BEFORE AND AFTER MEDS.
--- NOTE | 2021-01-18 21:30 | NUR ---
SUCTIONED TRACH PER PT REQUEST...VERY CONGESTED AND YEILDED COPIOUS AMOUNTS OF MUCUS.
--- NOTE | 2021-01-19 00:40 | NUR ---
BEDDING CHANGED DUE TO INCONTINCE OF URINE. O2 SATS DROPPED INTO THE 80'S DURING BED CHANGE. RT AT BEDSIDE.
--- NOTE | 2021-01-19 00:50 | NUR ---
PRN UPDRAFT TREATMENT GIVEN BY RT.
[2021-01-19 00:53] VITALS: BP 150/60
[2021-01-19 04:28] VITALS: BP 132/70
--- NOTE | 2021-01-19 04:50 | NUR ---
CHANGED OUT ALL FEEDING BAGS AND TUBING.
--- NOTE | 2021-01-19 05:01 | NUR ---
PT VERY CONGESTED AND O2 SATS AT 82%. SUCTIONED USING STERILE TECHNIQUE. SPO2 UP TO 92% AFTER SUCTIONING.
[2021-01-19 08:53] VITALS: BP 145/63
[2021-01-19 12:58] VITALS: BP 127/57
--- NOTE | 2021-01-19 13:24 | NUR ---
ASSESSENT PER FLOW SHEET. PATIENT IS WITHOUT DISTRESS. MONITOR FOR NEEDS. CALL LIGHT IN REACH.
--- NOTE | 2021-01-19 16:33 | NUR ---
SUCTIONED USING PATHOLOGY SECRETARY PER PATIENT REQUEST.MEDS ORDERED FOR PAIN PER MAR
[2021-01-19 17:11] VITALS: BP 112/48
--- NOTE | 2021-01-19 19:00 | NUR ---
BEDSIDE REPORT RECEIVED AND CARE OF PT ASSUMED. PT LYING IN MID MCNEIL'S POSITION WATCHING TV. PEG TUBE PATENT WITH OSMOLITE INFUSING AT 40 ML/HR VIA FEEDING PUMP. TRACH COLLAR IN PLACE AT 10 L O2. WILL MONITOR CLOSELY FOR NEEDS.
[2021-01-19 20:00] VITALS: BP 133/59
--- NOTE | 2021-01-19 20:37 | NUR ---
HS MEDICATIONS GIVEN VIA PEG TUBE. FLUSHED WITH 30 CC WATER BEFORE AND AFTER MEDS.
--- NOTE | 2021-01-19 23:50 | NUR ---
ALL BEDDING CHANGED DUE TO INCONTINCE OF URINE. POSTIONED FOR COMFORT.
[2021-01-20] VITALS: BP 129/53
--- NOTE | 2021-01-20 00:01 | NUR ---
GAVE NORCO PO AND ATIVAN PO FOR C/O PAIN AND ANXIETY. WILL CONTINUE TO MONITOR CLOSELY FOR NEEDS.
--- NOTE | 2021-01-20 04:00 | NUR ---
PT HAS BEEN RESTING SINCE RECEIVING NORCO AND ATIVAN AT MIDNIGHT, WITH SPO2 STAYING 98% - 100% PER CONTINUOUS PULSE OX MONITOR. WILL CONTINUE TO MONITOR CLOSELY FOR NEEDS. CALL LIGHT WITHIN REACH.
--- NOTE | 2021-01-20 04:31 | NUR ---
CHANGED OUT ALL FEEDING TUBING AND BAGS. RE-STARTED FEEDING VIA PUMP PER ORDER.
[2021-01-20 10:07] VITALS: BP 114/42
--- NOTE | 2021-01-20 10:36 | NUR ---
REFUSED PT AND NSG
[2021-01-20 12:50] VITALS: BP 129/49
--- NOTE | 2021-01-20 14:33 | NUR ---
I have reviewed this patient and I concur with the Shift Assessment completed by the Licensed Practical Nurse today this shift.
--- NOTE | 2021-01-20 16:08 | NUR ---
PATIENT REQUESTED TO BE SUCTIONED, DEEP SUCTIONED PATIENT, ADMINISTERED SCHEDULED MEDS PER MAR. CONTINUE WITH PLAN OF CARE
--- NOTE | 2021-01-20 19:00 | NUR ---
BEDSIDE REPORT RECEIVED AND CARE OF PT ASSUMED. PT LYING IN MID [place]NE[place]'S POSITION WATCHING TV. TRACH COLLAR IN USE AT 10 L O2. PEG TUBE PATENT WITH OSMOLITE 1.5 INFUSING AT 40 ML/HR VIA FEEDING PUMP. WILL MONITOR FOR NEEDS.
[2021-01-20 19:34] VITALS: BP 109/48
--- NOTE | 2021-01-20 21:09 | NUR ---
HS MEDICATIONS GIVEN TO INCLUDE NORCO AND ATIVAN PO PER PRN ORDER, PER REQUEST FOR PAIN AND ANXIETY. WILL MONITOR FOR EFFECTIVENESS.
--- NOTE | 2021-01-21 03:32 | NUR ---
GAVE NORCO PER PEG TUBE FOR C/O HEADACHE. WILL MONITOR FOR EFFECTIVENESS.
--- NOTE | 2021-01-21 03:58 | NUR ---
SUCTIONED TRACH PER PT REQUEST, USING STERILE TECHNIQUE.
[2021-01-21 04:03] VITALS: BP 155/64
--- NOTE | 2021-01-21 05:10 | NUR ---
CHANGED ALL FEEDING TUBING AND BAGS. GAVE AM MEDICATIONS VIA PEG TUBE AND FLUSHED TUBE WITH 30 ML WATER BEFORE AND AFTER. SUCTIONED TRACH AND CLEANED AREA SURROUNDING TRACH AND REPLACED DRESSING. CHANGED OUT SUCTION CANNISTER.
--- NOTE | 2021-01-21 07:23 | MORECARE ---
CASE MANAGEMENT DISCHARGE SUMMARY PATIENT: CHON LUI UNIT: [id number] ADM DATE: 12/21/20 AGE: 70 : 50 SEX: F ROOM/BED: D.2217 AUTHOR: MONET,DOC PHYSICIAN: REFERRING PHYSICIAN: CHERELLE NAVARRETE MD DATE OF SERVICE: 01/21/21 Case Management Discharge Planning Summary COMMENTS ENTERED DATE: 01/21/21 7:15 CT COMMENT TYPE: Discharge Planning REVIEWER: Magaly Duran LATE ENTRY 01/17/21 [facility] [place] CAN NOT TAKE TRACH PATIENTS AT THIS TIME ENTERED DATE: 01/17/21 11:33 CT COMMENT TYPE: Discharge Planning REVIEWER: Magaly Duran REACHED OUT TO [facility] AT [facility] ABOUT TRACH PATIENTS SHE WAS AYAAN GTO MAKE A PHONE CALL AND GET BACK WITH ME ENTERED DATE: 01/17/21 11:28 CT COMMENT TYPE: Discharge Planning REVIEWER: Magaly Duran CALLED [facility] IN [place] AND THEY DO NOT TAKE TRACH PATIENTS ENTERED DATE: 01/16/21 7:42 CT COMMENT TYPE: Discharge Planning REVIEWER: Magaly Duran RECEIVED A MESSAGE FROM AYANA AT [facility] STATING THAT THEY CAN NOT ACCEPT THIS PATIENT. ENTERED DATE: 01/14/21 14:46 CT COMMENT TYPE: Discharge Planning REVIEWER: Ida Diaz CM SPOKE WITH SUZIE ANDREA AND ACADEMIC AFFAIRS VICE PRESIDENT FELIBERTO AT [facility]. THEY COULD HAVE HER SUCTIONING ORDERED EVERY 4 HRS AND PRN AT THEIR FACILITY. THEY FEEL LIKE SUCTIONING IS NOT THE PROBLEM WITH HER. SHE REFUSES TO WEAR HER VEST. SHE IS ALSO A FULL CODE, THEREFORE IF HER SATS DROP THEY HAVE TO CALL EMS. PATIENT WANTS TO RETURN BACK TO [facility]. CM TO FOLLOW AND ASSIST NEEDED. ENTERED DATE: 01/14/21 11:33 CT COMMENT TYPE: Discharge Planning REVIEWER: Ida Emily REFERRAL FAXED TO [facility] FOR PLACEMENT. WAITING CALL BACK. ENTERED DATE: 01/09/21 13:51 CT COMMENT TYPE: Discharge Planning REVIEWER: Ida Diaz UPDATES FAXED TO CHRISTOPHER AT [facility] FOR PLACEMENT FOR THIS PATIENT. [facility] MAY POTENTIALLY TAKE THIS PATIENT. SHE IS AT 35 Fio2 now and should be stable to dc to prison when auth is approved. Trach should be changed today per pulmonary order. CM to follow and assist as needed. ENTERED DATE: 01/01/21 13:35 CT COMMENT TYPE: Discharge Planning REVIEWER: Ida WHITE WITH [facility] HAS VISITED WITH PATIENT AND FAMILY TODAY. I AM FAXING CLINICALS TO THE [facility] AND THEY ARE CONSIDERING TAKING HER. I AM WAITING CALL BACK FROM THEM. SHE WILL NEED TO BE WEANED TO LESS THAN 30% OXYGEN BEFORE SHE COULD DISCHARGE TO NURSING FACILITY. ENTERED DATE: 12/30/20 14:32 CT COMMENT TYPE: Discharge Planning REVIEWER: Magaly Duran [facility] has clinically denied the patient. Will try another facility. ENTERED DATE: 12/30/20 11:58 CT COMMENT TYPE: Discharge Planning REVIEWER: Magaly Duran PER DR GÓMEZ THE PATIENT NEEDS TO GO TO ANOTHER PLACE, I SPOKE WITH JANIYA AT [facility] [place] LAST WEEK AND SENT THE REFERRAL OVER TODAY. DCP REVIEW SUMMARY ANTICIPATED D/C DATE: EXPECTED LOS : CASE STATUS: DCP Initiated INITIAL REVIEW: 12/21/2020 INITIAL REVIEWER: Ida Diaz FINAL DISCHARGE DISPOSITION: : FINAL REVIEWER: FINAL REVIEW DATE: DCP Focus Questions & Answers DCP Screen QUESTION: ANSWER High Risk Factors: : Polypharmacy (greater than 10 meds) DCP Evaluation QUESTION: ANSWER Patient's current cognitive status: : *Oriented to person, place, situation, time and present Patient and/or caregiver agree upon recommended discharge plan? : Yes Patient's ability to cope with chronic illness : d. No chronic illness Physical Status: : Mobility impaired Physical Status: : Total care dependent Functional screen assessment: : Unable to manage ADLs without immediate ongoing assistance Living Arrangements: : Senior Living Facility Baseline cognitive status: : *Oriented to person, place, situation, time and present Other Equipment comments: : TRACH,PEG, RESP VEST Facility / Agency name and contact information from Question 3 (if applicable): : [facility] Comments: : PULMONARY REQUESTS PATIENT TO GO TO A DIFFERENT NURSING FACILITY . THE [facility] IS LOOKING AT FOR THEIR FACILITY. Would patient like to participate in any Care Coordination programs (if applicable): : Not applicable Mental health screen: : No mental health history DCP Re-evaluation QUESTION: ANSWER Would patient like to participate in any Care Coordination programs (if applicable): : Not applicable PROVIDER NETWORKING REVIEW DATE: 01/14/2021 SERVICE TYPE: Senior Living Facility REVIEWER: Ida Diaz PATIENT: CHON LUI ENCOUNTER: [id number] MEDICAL RECORD#: [id number] ADMISSION DATE: 12/21/2020 DISCHARGE DATE: ATTENDING MD: CHERELLE LOERA : AGE: 70 MARITAL STATUS: W DC PLAN ID: [id number] FACILITY: [facility] PRINTED ON: 01/21/21 7:23 CT All edits/amendments must be made on the electronic document DICTATION DATE: 01/21/21722 MATERIAL REQUISITIONER: NAHUN 01/21/21722 RPT#: [id number] DC DATE: STATUS: ADM IN [facility] [address] [place] [address] END OF REPORT
--- NOTE | 2021-01-21 08:21 | MORECARE ---
CASE MANAGEMENT DISCHARGE SUMMARY PATIENT: CHON LUI UNIT: [id number] ADM DATE: 12/21/20 AGE: 70 : 50 SEX: F ROOM/BED: D.2217 AUTHOR: MONET,DOC PHYSICIAN: REFERRING PHYSICIAN: CHERELLE NAVARRETE MD DATE OF SERVICE: 01/21/21 Case Management Discharge Planning Summary COMMENTS ENTERED DATE: 01/21/21 7:15 CT COMMENT TYPE: Discharge Planning REVIEWER: Magaly Duran LATE ENTRY 01/17/21 [facility] [place] CAN NOT TAKE TRACH PATIENTS AT THIS TIME ENTERED DATE: 01/17/21 11:33 CT COMMENT TYPE: Discharge Planning REVIEWER: Magaly Duran REACHED OUT TO [facility] AT [facility] ABOUT TRACH PATIENTS SHE WAS AYAAN GTO MAKE A PHONE CALL AND GET BACK WITH ME ENTERED DATE: 01/17/21 11:28 CT COMMENT TYPE: Discharge Planning REVIEWER: Magaly Duran CALLED [facility] IN [place] AND THEY DO NOT TAKE TRACH PATIENTS ENTERED DATE: 01/16/21 7:42 CT COMMENT TYPE: Discharge Planning REVIEWER: Magaly Duran RECEIVED A MESSAGE FROM AYANA AT [facility] STATING THAT THEY CAN NOT ACCEPT THIS PATIENT. ENTERED DATE: 01/14/21 14:46 CT COMMENT TYPE: Discharge Planning REVIEWER: Ida Diaz CM SPOKE WITH SUZIE ANDREA AND COMPANY LABORER FELBIERTO AT [facility]. THEY COULD HAVE HER SUCTIONING ORDERED EVERY 4 HRS AND PRN AT THEIR FACILITY. THEY FEEL LIKE SUCTIONING IS NOT THE PROBLEM WITH HER. SHE REFUSES TO WEAR HER VEST. SHE IS ALSO A FULL CODE, THEREFORE IF HER SATS DROP THEY HAVE TO CALL EMS. PATIENT WANTS TO RETURN BACK TO [facility]. CM TO FOLLOW AND ASSIST NEEDED. ENTERED DATE: 01/14/21 11:33 CT COMMENT TYPE: Discharge Planning REVIEWER: Ida Emily REFERRAL FAXED TO [facility] FOR PLACEMENT. WAITING CALL BACK. ENTERED DATE: 01/09/21 13:51 CT COMMENT TYPE: Discharge Planning REVIEWER: Ida Diaz UPDATES FAXED TO CHRISTOPHER AT [facility] FOR PLACEMENT FOR THIS PATIENT. [facility] MAY POTENTIALLY TAKE THIS PATIENT. SHE IS AT 35 Fio2 now and should be stable to dc to snf when auth is approved. Trach should be changed today per pulmonary order. CM to follow and assist as needed. ENTERED DATE: 01/01/21 13:35 CT COMMENT TYPE: Discharge Planning REVIEWER: Ida WHITE WITH [facility] HAS VISITED WITH PATIENT AND FAMILY TODAY. I AM FAXING CLINICALS TO THE [facility] AND THEY ARE CONSIDERING TAKING HER. I AM WAITING CALL BACK FROM THEM. SHE WILL NEED TO BE WEANED TO LESS THAN 30% OXYGEN BEFORE SHE COULD DISCHARGE TO NURSING FACILITY. ENTERED DATE: 12/30/20 14:32 CT COMMENT TYPE: Discharge Planning REVIEWER: Magaly Duran [facility] has clinically denied the patient. Will try another facility. ENTERED DATE: 12/30/20 11:58 CT COMMENT TYPE: Discharge Planning REVIEWER: Magaly Duran PER DR GÓMEZ THE PATIENT NEEDS TO GO TO ANOTHER PLACE, I SPOKE WITH JANIYA AT [facility] LAST WEEK AND SENT THE REFERRAL OVER TODAY. DCP REVIEW SUMMARY ANTICIPATED D/C DATE: EXPECTED LOS : CASE STATUS: DCP Initiated INITIAL REVIEW: 12/21/2020 INITIAL REVIEWER: Ida Diaz FINAL DISCHARGE DISPOSITION: : FINAL REVIEWER: FINAL REVIEW DATE: DCP Focus Questions & Answers DCP Screen QUESTION: ANSWER High Risk Factors: : Polypharmacy (greater than 10 meds) DCP Evaluation QUESTION: ANSWER Patient's current cognitive status: : *Oriented to person, place, situation, time and present Patient and/or caregiver agree upon recommended discharge plan? : Yes Patient's ability to cope with chronic illness : d. No chronic illness Physical Status: : Mobility impaired Physical Status: : Total care dependent Functional screen assessment: : Unable to manage ADLs without immediate ongoing assistance Living Arrangements: : Jail Facility Baseline cognitive status: : *Oriented to person, place, situation, time and present Other Equipment comments: : TRACH,PEG, RESP VEST Facility / Agency name and contact information from Question 3 (if applicable): : [facility] Comments: : PULMONARY REQUESTS PATIENT TO GO TO A DIFFERENT NURSING FACILITY . THE [facility] IS LOOKING AT FOR THEIR FACILITY. Would patient like to participate in any Care Coordination programs (if applicable): : Not applicable Mental health screen: : No mental health history DCP Re-evaluation QUESTION: ANSWER Would patient like to participate in any Care Coordination programs (if applicable): : Not applicable PROVIDER NETWORKING REVIEW DATE: 01/14/2021 SERVICE TYPE: Jail Facility REVIEWER: Ida Diaz PATIENT: CHON LUI ENCOUNTER: [id number] MEDICAL RECORD#: [id number] ADMISSION DATE: 12/21/2020 DISCHARGE DATE: ATTENDING MD: CHERELLE LOERA : AGE: 70 MARITAL STATUS: W DC PLAN ID: [id number] FACILITY: [facility] PRINTED ON: 01/21/21 8:20 CT All edits/amendments must be made on the electronic document DICTATION DATE: 01/21/21819 [place] HOLD: NAHUN 01/21/21819 RPT#: [id number] DC DATE: STATUS: ADM IN [facility] [address] [place] [address] END OF REPORT
[2021-01-21 08:33] LABS: BASOPHILS 0.5 % (0-2); HEMATOCRIT 31.8 % (36.0-48.0); HEMOGLOBIN 10.2 g/dL (12-16); LYMPHOCYTES 18.2 % (15-50); MCH 26.6 pg (26.0-34.0); MCHC 32.1 g/dL (31.0-37.0); MCV 82.9 fL (80.0-100.0); MEAN PLATELET VOLUME 6.3 fL (7.4-10.4); MONOCYTES 7.2 % (2-11); NEUTROPHILS 71.1 % (40-80); RBC 3.83 10x6/uL (4.00-5.40); RDW 17.5 % (11.5-14.5); WBC 8.8 10x3/uL (4.8-10.8)
[2021-01-21 08:47] LABS: ALBUMIN 2.7 g/dL (3.4-5.0); ALKALINE PHOSPHATASE 139 U/L (30-120); ALT (SGPT) 30 U/L (10-68); BILIRUBIN - TOTAL 0.12 mg/dL (0.2-1.3); CALC OSMOLALITY 275 mosm/kg (275-300); CALCIUM 8.9 mg/dL (8.5-10.1); CHLORIDE - SERUM 98 mmol/L (98-107); CREATININE - SERUM 0.7 mg/dL (0.6-1.3); GLUCOSE 139 mg/dL (74-106); POTASSIUM - SERUM 4.2 mmol/L (3.5-5.1); PROTEIN - SERUM 7.7 g/dL (6.4-8.2); SODIUM 136 mmol/L (136-145); UREA NITROGEN 18 mg/dL (7-18); eGFR NON AFRICAN AMERICAN 88 mL/min (90-120)
[2021-01-21 08:56] VITALS: BP 106/72
[2021-01-21 09:25] LABS: PLATELET COUNT 365 10x3/uL (130-400)
[2021-01-21] MEDS ORDERED: IPRAT-ALBUT 0.5-3 ML INH ×2 (09:52→09:53)
[2021-01-21] MEDS ORDERED: K-DUR20 MEQ PO (09:57)
[2021-01-21] MEDS ORDERED: VISINE EACH EYE (09:58)
[2021-01-21] MEDS ORDERED: NYSTATIN1 PWD TOPICAL (10:01)
--- NOTE | 2021-01-21 12:20 | MORECARE ---
CASE MANAGEMENT DISCHARGE SUMMARY PATIENT: CHON LUI UNIT: [id number] ADM DATE: 12/21/20 AGE: 70 : 50 SEX: F ROOM/BED: D.2217 AUTHOR: MONET,DOC PHYSICIAN: REFERRING PHYSICIAN: CHERELLE NAVARRETE MD DATE OF SERVICE: 01/21/21 Case Management Discharge Planning Summary COMMENTS ENTERED DATE: 01/21/21 12:16 CT COMMENT TYPE: Discharge Planning REVIEWER: Magaly NAVARRETE STATED THAT THE PATIENT WANTS TO GO BACK TO [facility] AND SHE IS READY TO BE DISCHARGED, I HAVE NOTIFIED [facility] AND SPOKE WITH RAUL SHE WILL BE GOING TO A SKILLED BED ENTERED DATE: 01/21/21 7:15 CT COMMENT TYPE: Discharge Planning REVIEWER: Magaly Duran LATE ENTRY 01/17/21 [facility] [place] CAN NOT TAKE TRACH PATIENTS AT THIS TIME ENTERED DATE: 01/17/21 11:33 CT COMMENT TYPE: Discharge Planning REVIEWER: Magaly Duran REACHED OUT TO [facility] AT [facility] ABOUT TRACH PATIENTS SHE WAS AYAAN GTO MAKE A PHONE CALL AND GET BACK WITH ME ENTERED DATE: 01/17/21 11:28 CT COMMENT TYPE: Discharge Planning REVIEWER: Magaly Duran CALLED [facility] IN [place] AND THEY DO NOT TAKE TRACH PATIENTS ENTERED DATE: 01/16/21 7:42 CT COMMENT TYPE: Discharge Planning REVIEWER: Magaly Duran RECEIVED A MESSAGE FROM AYANA AT [facility] STATING THAT THEY CAN NOT ACCEPT THIS PATIENT. ENTERED DATE: 01/14/21 14:46 CT COMMENT TYPE: Discharge Planning REVIEWER: Ida Diaz CM SPOKE WITH SUZIE ANDREA AND DISULFURIZER TENDER FELIBERTO AT [facility]. THEY COULD HAVE HER SUCTIONING ORDERED EVERY 4 HRS AND PRN AT THEIR FACILITY. THEY FEEL LIKE SUCTIONING IS NOT THE PROBLEM WITH HER. SHE REFUSES TO WEAR HER VEST. SHE IS ALSO A FULL CODE, THEREFORE IF HER SATS DROP THEY HAVE TO CALL EMS. PATIENT WANTS TO RETURN BACK TO [facility]. CM TO FOLLOW AND ASSIST NEEDED. ENTERED DATE: 01/14/21 11:33 CT COMMENT TYPE: Discharge Planning REVIEWER: Ida Diaz REFERRAL FAXED TO [facility] FOR PLACEMENT. WAITING CALL BACK. ENTERED DATE: 01/09/21 13:51 CT COMMENT TYPE: Discharge Planning REVIEWER: Ida Diaz UPDATES FAXED TO CHRISTOPHER AT [facility] FOR PLACEMENT FOR THIS PATIENT. [facility] MAY POTENTIALLY TAKE THIS PATIENT. SHE IS AT 35 Fio2 now and should be stable to dc to senior care when auth is approved. Trach should be changed today per pulmonary order. CM to follow and assist as needed. ENTERED DATE: 01/01/21 13:35 CT COMMENT TYPE: Discharge Planning REVIEWER: Ida WHITE WITH [facility] HAS VISITED WITH PATIENT AND FAMILY TODAY. I AM FAXING CLINICALS TO THE [facility] AND THEY ARE CONSIDERING TAKING HER. I AM WAITING CALL BACK FROM THEM. SHE WILL NEED TO BE WEANED TO LESS THAN 30% OXYGEN BEFORE SHE COULD DISCHARGE TO NURSING FACILITY. ENTERED DATE: 12/30/20 14:32 CT COMMENT TYPE: Discharge Planning REVIEWER: Magaly Duran [facility] has clinically denied the patient. Will try another facility. ENTERED DATE: 12/30/20 11:58 CT COMMENT TYPE: Discharge Planning REVIEWER: Magaly Duran PER DR GÓMEZ THE PATIENT NEEDS TO GO TO ANOTHER PLACE, I SPOKE WITH JANIYA AT [facility] LAST WEEK AND SENT THE REFERRAL OVER TODAY. DCP REVIEW SUMMARY ANTICIPATED D/C DATE: EXPECTED LOS : CASE STATUS: DCP Initiated INITIAL REVIEW: 12/21/2020 INITIAL REVIEWER: Ida Diaz FINAL DISCHARGE DISPOSITION: 83 : Discharged/Trans to a Long-Term Facility (SNF) with Medicare Certification with a planned FINAL REVIEWER: FINAL REVIEW DATE: NVP Focus Questions & Answers DCP Screen QUESTION: ANSWER High Risk Factors: : Polypharmacy (greater than 10 meds) DCP Evaluation QUESTION: ANSWER Patient's current cognitive status: : *Oriented to person, place, situation, time and present Patient and/or caregiver agree upon recommended discharge plan? : Yes Patient's ability to cope with chronic illness : d. No chronic illness Physical Status: : Mobility impaired Physical Status: : Total care dependent Functional screen assessment: : Unable to manage ADLs without immediate ongoing assistance Living Arrangements: : Long-Term Facility Baseline cognitive status: : *Oriented to person, place, situation, time and present Other Equipment comments: : TRACH,PEG, RESP VEST Facility / Agency name and contact information from Question 3 (if applicable): : [facility] CLERK Comments: : PULMONARY REQUESTS PATIENT TO GO TO A DIFFERENT NURSING FACILITY . THE [facility] IS LOOKING AT FOR THEIR FACILITY. Would patient like to participate in any Care Coordination programs (if applicable): : Not applicable Mental health screen: : No mental health history DCP Re-evaluation QUESTION: ANSWER Would patient like to participate in any Care Coordination programs (if applicable): : Not applicable PROVIDER NETWORKING REVIEW DATE: 01/14/2021 SERVICE TYPE: Long-Term Facility REVIEWER: Ida Diaz PATIENT: CHON LUI ENCOUNTER: [id number] MEDICAL RECORD#: [id number] ADMISSION DATE: 12/21/2020 DISCHARGE DATE: ATTENDING MD: CHERELLE LOERA : AGE: 70 MARITAL STATUS: W DC PLAN ID: [id number] FACILITY: [facility] PRINTED ON: 01/21/21 12:20 CT All edits/amendments must be made on the electronic document DICTATION DATE: 01/21/21 122 INTERLOCKING MACHINE OPERATOR: NAHUN 01/21/21 1220 RPT#: [id number] DC DATE: STATUS: ADM IN [facility] [address] [place] [address] END OF REPORT
--- NOTE | 2021-01-21 12:41 | NUR ---
REPORT WAS CALLED AND GIVEN TO CHARGE NURSE AT THIS TIME. NO C/O NOTED OR VOICED. WILL CONTINUE TO OBSERVE FOR NEEDS. C/L IN REACH AT BEDSIDE.
--- NOTE | 2021-01-21 13:34 | MORECARE ---
CASE MANAGEMENT DISCHARGE SUMMARY PATIENT: CHON LUI UNIT: [id number] ADM DATE: 12/21/20 AGE: 70 : 50 SEX: F ROOM/BED: D.2217 AUTHOR: MONET,DOC PHYSICIAN: REFERRING PHYSICIAN: CHERELLE NAVARRETE MD DATE OF SERVICE: 01/21/21 Case Management Discharge Planning Summary COMMENTS ENTERED DATE: 01/21/21 12:16 CT COMMENT TYPE: Discharge Planning REVIEWER: Magaly NAVARRETE STATED THAT THE PATIENT WANTS TO GO BACK TO [facility] AND SHE IS READY TO BE DISCHARGED, I HAVE NOTIFIED [facility] AND SPOKE WITH RAUL SHE WILL BE GOING TO A SKILLED BED ENTERED DATE: 01/21/21 7:15 CT COMMENT TYPE: Discharge Planning REVIEWER: Magaly Duran LATE ENTRY 01/17/21 [facility] CAN NOT TAKE TRACH PATIENTS AT THIS TIME ENTERED DATE: 01/17/21 11:33 CT COMMENT TYPE: Discharge Planning REVIEWER: Magaly Duran REACHED OUT TO [facility] AT [facility] ABOUT TRACH PATIENTS SHE WAS AYAAN GTO MAKE A PHONE CALL AND GET BACK WITH ME ENTERED DATE: 01/17/21 11:28 CT COMMENT TYPE: Discharge Planning REVIEWER: Magaly Duran CALLED [facility] IN [place] AND THEY DO NOT TAKE TRACH PATIENTS ENTERED DATE: 01/16/21 7:42 CT COMMENT TYPE: Discharge Planning REVIEWER: Magaly Duran RECEIVED A MESSAGE FROM AYANA AT [facility] STATING THAT THEY CAN NOT ACCEPT THIS PATIENT. ENTERED DATE: 01/14/21 14:46 CT COMMENT TYPE: Discharge Planning REVIEWER: Ida Diaz CM SPOKE WITH SUZIE ANDREA AND UNIX ADMINISTRATOR FELIBERTO AT [facility]. THEY COULD HAVE HER SUCTIONING ORDERED EVERY 4 HRS AND PRN AT THEIR FACILITY. THEY FEEL LIKE SUCTIONING IS NOT THE PROBLEM WITH HER. SHE REFUSES TO WEAR HER VEST. SHE IS ALSO A FULL CODE, THEREFORE IF HER SATS DROP THEY HAVE TO CALL EMS. PATIENT WANTS TO RETURN BACK TO [facility]. CM TO FOLLOW AND ASSIST NEEDED. ENTERED DATE: 01/14/21 11:33 CT COMMENT TYPE: Discharge Planning REVIEWER: Ida Diaz REFERRAL FAXED TO [facility] FOR PLACEMENT. WAITING CALL BACK. ENTERED DATE: 01/09/21 13:51 CT COMMENT TYPE: Discharge Planning REVIEWER: Ida Diaz UPDATES FAXED TO CHRISTOPHER AT [facility] FOR PLACEMENT FOR THIS PATIENT. [facility] MAY POTENTIALLY TAKE THIS PATIENT. SHE IS AT 35 Fio2 now and should be stable to dc to fpc when auth is approved. Trach should be changed today per pulmonary order. CM to follow and assist as needed. ENTERED DATE: 01/01/21 13:35 CT COMMENT TYPE: Discharge Planning REVIEWER: Ida WHITE WITH [facility] HAS VISITED WITH PATIENT AND FAMILY TODAY. I AM FAXING CLINICALS TO THE [facility] AND THEY ARE CONSIDERING TAKING HER. I AM WAITING CALL BACK FROM THEM. SHE WILL NEED TO BE WEANED TO LESS THAN 30% OXYGEN BEFORE SHE COULD DISCHARGE TO NURSING FACILITY. ENTERED DATE: 12/30/20 14:32 CT COMMENT TYPE: Discharge Planning REVIEWER: Magaly Duran [facility] has clinically denied the patient. Will try another facility. ENTERED DATE: 12/30/20 11:58 CT COMMENT TYPE: Discharge Planning REVIEWER: Magaly Duran PER DR GÓMEZ THE PATIENT NEEDS TO GO TO ANOTHER PLACE, I SPOKE WITH JANIYA AT [facility] LAST WEEK AND SENT THE REFERRAL OVER TODAY. DCP REVIEW SUMMARY ANTICIPATED D/C DATE: EXPECTED LOS : CASE STATUS: DCP Initiated INITIAL REVIEW: 12/21/2020 INITIAL REVIEWER: Ida Diaz FINAL DISCHARGE DISPOSITION: 83 : Discharged/Trans to a Prison Facility (SNF) with Medicare Certification with a planned FINAL REVIEWER: FINAL REVIEW DATE: SCP Focus Questions & Answers DCP Screen QUESTION: ANSWER High Risk Factors: : Polypharmacy (greater than 10 meds) DCP Evaluation QUESTION: ANSWER Patient's current cognitive status: : *Oriented to person, place, situation, time and present Patient and/or caregiver agree upon recommended discharge plan? : Yes Patient's ability to cope with chronic illness : d. No chronic illness Physical Status: : Mobility impaired Physical Status: : Total care dependent Functional screen assessment: : Unable to manage ADLs without immediate ongoing assistance Living Arrangements: : Prison Facility Baseline cognitive status: : *Oriented to person, place, situation, time and present Other Equipment comments: : TRACH,PEG, RESP VEST Facility / Agency name and contact information from Question 3 (if applicable): : [facility] Comments: : PULMONARY REQUESTS PATIENT TO GO TO A DIFFERENT NURSING FACILITY . THE [facility] IS LOOKING AT FOR THEIR FACILITY. Would patient like to participate in any Care Coordination programs (if applicable): : Not applicable Mental health screen: : No mental health history DCP Re-evaluation QUESTION: ANSWER Would patient like to participate in any Care Coordination programs (if applicable): : Not applicable PROVIDER NETWORKING REVIEW DATE: 01/14/2021 SERVICE TYPE: Prison Facility REVIEWER: Ida Diaz PATIENT: CHON LUI ENCOUNTER: [id number] MEDICAL RECORD#: [id number] ADMISSION DATE: 12/21/2020 DISCHARGE DATE: 01/21/2021 ATTENDING MD: CHERELLE LOERA : AGE: 70 MARITAL STATUS: W DC PLAN ID: [id number] FACILITY: [facility] PRINTED ON: 01/21/21 13:34 CT All edits/amendments must be made on the electronic document DICTATION DATE: 01/21/211332 SMALL BATTERY PLATE ASSEMBLER: NAHUN 01/21/21 1333 RPT#: [id number] DC DATE:01/21/21 STATUS: DIS IN [facility] [address] [place] [address] END OF REPORT
--- NOTE | 2021-01-21 14:00 | MORECARE ---
CASE MANAGEMENT DISCHARGE SUMMARY PATIENT: CHON LUI UNIT: [id number] ADM DATE: 12/21/20 AGE: 70 : 50 SEX: F ROOM/BED: D.2217 AUTHOR: MONET,DOC PHYSICIAN: REFERRING PHYSICIAN: CHERELLE NAVARRETE MD DATE OF SERVICE: 01/21/21 Case Management Discharge Planning Summary COMMENTS ENTERED DATE: 01/21/21 13:52 CT COMMENT TYPE: Discharge Planning REVIEWER: Magaly Duran Imm done but was unable to sign ENTERED DATE: 01/21/21 13:48 CT COMMENT TYPE: Discharge Planning REVIEWER: Magaly Duran I called and spoke with the patient's daughter about her being discharged back to [facility] ENTERED DATE: 01/21/21 12:16 CT COMMENT TYPE: Discharge Planning REVIEWER: Magaly NAVARRETE STATED THAT THE PATIENT [facility] AND SHE IS READY TO BE DISCHARGED, I HAVE NOTIFIED [facility] AND SPOKE WITH RAUL SHE WILL BE GOING TO A SKILLED BED ENTERED DATE: 01/21/21 7:15 CT COMMENT TYPE: Discharge Planning REVIEWER: Magaly Duran LATE ENTRY 01/17/21 [facility] [place] CAN NOT TAKE TRACH PATIENTS AT THIS TIME ENTERED DATE: 01/17/21 11:33 CT COMMENT TYPE: Discharge Planning REVIEWER: Magaly Duran REACHED OUT TO ROSALBA AT [facility] ABOUT TRACH PATIENTS SHE WAS AYAAN GTO MAKE A PHONE CALL AND GET BACK WITH ME ENTERED DATE: 01/17/21 11:28 CT COMMENT TYPE: Discharge Planning REVIEWER: Magaly Duran CALLED [facility] IN [place] AND THEY DO NOT TAKE TRACH PATIENTS ENTERED DATE: 01/16/21 7:42 CT COMMENT TYPE: Discharge Planning REVIEWER: Magaly Duran RECEIVED A MESSAGE FROM AYANA AT [facility] STATING THAT THEY CAN NOT ACCEPT THIS PATIENT. ENTERED DATE: 01/14/21 14:46 CT COMMENT TYPE: Discharge Planning REVIEWER: Ida Diaz CM SPOKE WITH SUZIE ANDREA AND YOUTH CARE SPECIALIST FELIBERTO AT [facility]. THEY COULD HAVE HER SUCTIONING ORDERED EVERY 4 HRS AND PRN AT THEIR FACILITY. THEY FEEL LIKE SUCTIONING IS NOT THE PROBLEM WITH HER. SHE REFUSES TO WEAR HER VEST. SHE IS ALSO A FULL CODE, THEREFORE IF HER SATS DROP THEY HAVE TO CALL EMS. PATIENT WANTS TO RETURN BACK TO [facility]. CM TO FOLLOW AND ASSIST NEEDED. ENTERED DATE: 01/14/21 11:33 CT COMMENT TYPE: Discharge Planning REVIEWER: Ida Diaz REFERRAL FAXED TO [facility] FOR PLACEMENT. WAITING CALL BACK. ENTERED DATE: 01/09/21 13:51 CT COMMENT TYPE: Discharge Planning REVIEWER: Ida Diaz UPDATES FAXED TO CHRISTOPHER AT [facility] FOR PLACEMENT FOR THIS PATIENT. [facility] MAY POTENTIALLY TAKE THIS PATIENT. SHE IS AT 35 Fio2 now and should be stable to dc to half-way when auth is approved. Trach should be changed today per pulmonary order. CM to follow and assist as needed. ENTERED DATE: 01/01/21 13:35 CT COMMENT TYPE: Discharge Planning REVIEWER: Ida Emily WHITE WITH [facility]/THE [facility] HAS VISITED WITH PATIENT AND FAMILY TODAY. I AM FAXING CLINICALS TO THE [facility] AND THEY ARE CONSIDERING TAKING HER. I AM WAITING CALL BACK FROM THEM. SHE WILL NEED TO BE WEANED TO LESS THAN 30% OXYGEN BEFORE SHE COULD DISCHARGE TO NURSING FACILITY. ENTERED DATE: 12/30/20 14:32 CT COMMENT TYPE: Discharge Planning [facility] Will [facility] another facility. ENTERED DATE: 12/30/20 11:58 CT COMMENT TYPE: Discharge Planning REVIEWER: Magaly Duran PER DR GÓMEZ THE PATIENT NEEDS TO GO TO ANOTHER PLACE, I SPOKE WITH JANIYA AT [facility] LAST WEEK AND SENT THE REFERRAL OVER TODAY. DCP REVIEW SUMMARY ANTICIPATED D/C DATE: EXPECTED LOS : CASE STATUS: DCP Initiated INITIAL REVIEW: 12/21/2020 INITIAL REVIEWER: Ida Diaz FINAL DISCHARGE DISPOSITION: 83 : Discharged/Trans to a [facility] (SNF) with Medicare Certification with a planned FINAL REVIEWER: FINAL REVIEW DATE: DCP Focus Questions & Answers DCP Screen QUESTION: ANSWER High Risk Factors: : Polypharmacy (greater than 10 meds) DCP Evaluation QUESTION: ANSWER Patient's current cognitive status: : *Oriented to person, place, situation, time and present Patient and/or caregiver agree upon recommended discharge plan? : Yes Patient's ability to cope with chronic illness : d. No chronic illness Physical Status: : Mobility impaired Physical Status: : Total care dependent Functional screen assessment: : Unable to manage ADLs without immediate ongoing assistance Living Arrangements: : [facility] Facility Baseline cognitive status: : *Oriented to person, place, situation, time and present Other Equipment comments: : TRACH,PEG, RESP VEST Facility / Agency name and contact information from Question 3 (if applicable): : [facility] Comments: : PULMONARY REQUESTS PATIENT TO GO TO A DIFFERENT NURSING FACILITY . THE [facility] IS LOOKING AT FOR THEIR FACILITY. Would patient like to participate in any Care Coordination programs (if applicable): : Not applicable Mental health screen: : No mental health history DCP Re-evaluation QUESTION: ANSWER Would patient like to participate in any Care Coordination programs (if applicable): : Not applicable PROVIDER NETWORKING REVIEW DATE: 01/14/2021 SERVICE TYPE: [facility] REVIEWER: Ida Diaz PATIENT: CHON LUI ENCOUNTER: [id number] MEDICAL RECORD#: [id number] ADMISSION DATE: 12/21/2020 DISCHARGE DATE: 01/21/2021 ATTENDING MD: CHERELLE LOERA : AGE: 70 MARITAL STATUS: W DC PLAN ID: [id number] FACILITY: [facility] PRINTED ON: 01/21/21 14:00 CT All edits/amendments must be made on the electronic document DICTATION DATE: 01/21/21 1400 SINTER PRESS OPERATOR: NAHUN 01/21/21 1400 RPT#: [id number] DC DATE:01/21/21 STATUS: DIS IN [facility] [address] [place] [address] END OF REPORT
--- NOTE | 2021-01-21 14:13 | MORECARE ---
CASE MANAGEMENT DISCHARGE SUMMARY PATIENT: CHON LUI UNIT: [id number] ADM DATE: 12/21/20 AGE: 70 : 50 SEX: F ROOM/BED: D.2217 AUTHOR: MOENT,DOC PHYSICIAN: REFERRING PHYSICIAN: CHERELLE NAVARRETE MD DATE OF SERVICE: 01/21/21 Case Management Discharge Planning Summary COMMENTS ENTERED DATE: 01/21/21 13:52 CT COMMENT TYPE: Discharge Planning REVIEWER: Magaly Duran Imm done but was unable to sign ENTERED DATE: 01/21/21 13:48 CT COMMENT TYPE: Discharge Planning REVIEWER: Magaly Duran I called and spoke with the patient's daughter about her being discharged back to [facility] [place] ENTERED DATE: 01/21/21 12:16 CT COMMENT TYPE: Discharge Planning REVIEWER: Magaly NAVARRETE STATED THAT THE PATIENT WANTS TO GO BACK TO [facility] AND SHE IS READY TO BE DISCHARGED, I HAVE NOTIFIED [facility] AND SPOKE WITH RAUL SHE WILL BE GOING TO A SKILLED BED ENTERED DATE: 01/21/21 7:15 CT COMMENT TYPE: Discharge Planning REVIEWER: Magaly Duran LATE ENTRY 01/17/21 [facility] OR [place] CAN NOT TAKE TRACH PATIENTS AT THIS TIME ENTERED DATE: 01/17/21 11:33 CT COMMENT TYPE: Discharge Planning REVIEWER: Magaly Duran REACHED OUT TO ROSALBA AT [facility] ABOUT TRACH PATIENTS SHE WAS AYAAN GTO MAKE A PHONE CALL AND GET BACK WITH ME ENTERED DATE: 01/17/21 11:28 CT COMMENT TYPE: Discharge Planning REVIEWER: Magaly Duran CALLED [facility] IN [place] AND THEY DO NOT TAKE TRACH PATIENTS ENTERED DATE: 01/16/21 7:42 CT COMMENT TYPE: Discharge Planning REVIEWER: Magaly Duran RECEIVED A MESSAGE FROM AYANA AT [facility] STATING THAT THEY CAN NOT ACCEPT THIS PATIENT. ENTERED DATE: 01/14/21 14:46 CT COMMENT TYPE: Discharge Planning REVIEWER: Ida Diaz CM SPOKE WITH SUZIE ANDREA AND SUPERVISOR SMALL APPLIANCE ASSEMBLY FELIBERTO AT [facility]. THEY COULD HAVE HER SUCTIONING ORDERED EVERY 4 HRS AND PRN AT THEIR FACILITY. THEY FEEL LIKE SUCTIONING IS NOT THE PROBLEM WITH HER. SHE REFUSES TO WEAR HER VEST. SHE IS ALSO A FULL CODE, THEREFORE IF HER SATS DROP THEY HAVE TO CALL EMS. PATIENT WANTS TO RETURN BACK TO [facility]. CM TO FOLLOW AND ASSIST NEEDED. ENTERED DATE: 01/14/21 11:33 CT COMMENT TYPE: Discharge Planning REVIEWER: Ida Diaz REFERRAL FAXED TO [facility] FOR PLACEMENT. WAITING CALL BACK. ENTERED DATE: 01/09/21 13:51 CT COMMENT TYPE: Discharge Planning REVIEWER: Ida Diaz UPDATES FAXED TO CHRISTOPHER AT [facility] FOR PLACEMENT FOR THIS PATIENT. [facility] MAY POTENTIALLY TAKE THIS PATIENT. SHE IS AT 35 Fio2 now and should be stable to [facility] when auth is approved. Trach should be changed today per pulmonary order. CM to follow and assist as needed. ENTERED DATE: 01/01/21 13:35 CT COMMENT TYPE: Discharge Planning REVIEWER: Ida Emily WHITE WITH [facility] HAS VISITED WITH PATIENT AND FAMILY TODAY. I AM FAXING CLINICALS TO THE [facility] AND THEY ARE CONSIDERING TAKING HER. I AM WAITING CALL BACK FROM THEM. SHE WILL NEED TO BE WEANED TO LESS THAN 30% OXYGEN BEFORE SHE COULD DISCHARGE TO NURSING FACILITY. ENTERED DATE: 12/30/20 14:32 CT COMMENT TYPE: Discharge Planning [facility] another facility. ENTERED DATE: 12/30/20 11:58 CT COMMENT TYPE: Discharge Planning REVIEWER: Magaly Duran PER DR GÓMEZ THE PATIENT NEEDS TO GO TO ANOTHER PLACE, I SPOKE WITH JANIYA AT [facility] LAST WEEK AND SENT THE REFERRAL OVER TODAY. DCP REVIEW SUMMARY ANTICIPATED D/C DATE: EXPECTED LOS : CASE STATUS: DCP Initiated INITIAL REVIEW: 12/21/2020 INITIAL REVIEWER: Ida Diaz FINAL DISCHARGE DISPOSITION: 83 : Discharged/Trans to a [facility] (SNF) with Medicare Certification with a planned FINAL REVIEWER: FINAL REVIEW DATE: DCP Focus Questions & Answers DCP Screen QUESTION: ANSWER High Risk Factors: : Polypharmacy (greater than 10 meds) DCP Evaluation QUESTION: ANSWER Patient's current cognitive status: : *Oriented to person, place, situation, time and present Patient and/or caregiver agree upon recommended discharge plan? : Yes Patient's ability to cope with chronic illness : d. No chronic illness Physical Status: : Mobility impaired Physical Status: : Total care dependent Functional screen assessment: : Unable to manage ADLs without immediate ongoing assistance Living Arrangements: : [facility] Baseline cognitive status: : *Oriented to person, place, situation, time and present Other Equipment comments: : TRACH,PEG, RESP VEST Facility / Agency name and contact information from Question 3 (if applicable): : [facility]P Comments: : PULMONARY REQUESTS PATIENT TO GO TO A DIFFERENT NURSING FACILITY . [facility] IS LOOKING AT FOR THEIR FACILITY. Would patient like to participate in any Care Coordination programs (if applicable): : Not applicable Mental health screen: : No mental health history DCP Re-evaluation QUESTION: ANSWER Would patient like to participate in any Care Coordination programs (if applicable): : Not applicable PROVIDER NETWORKING REVIEW DATE: 01/14/2021 SERVICE TYPE: [facility] REVIEWER: Ida Diaz PATIENT: CHON LUI ENCOUNTER: [id number] MEDICAL RECORD#: [id number] ADMISSION DATE: 12/21/2020 DISCHARGE DATE: 01/21/2021 ATTENDING MD: CHERELLE OLERA : AGE: 70 MARITAL STATUS: W DC PLAN ID: [id number] FACILITY: [facility] PRINTED ON: 01/21/21 14:13 CT All edits/amendments must be made on the electronic document DICTATION DATE: 01/21/21 141 LIGHT BULB ASSEMBLER: NAHUN 01/21/21 141 RPT#: [id number] DC DATE:01/21/21 STATUS: DIS IN [facility] [address] [place] [address] END OF REPORT
== END 2021-01-21 13:32 | DRG 193 ==
LOC: D.ER 11:16 → D.MS 12:38
PROVIDERS: Emergency Medicine; Family Medicine; Internal Medicine Pulmonary Disease; ADMIT Legal Medicine; ATTEND Legal Medicine
DX: J18.9 Pneumonia, unspecified organism (principal); J96.21 Acute and chronic respiratory failure with hypoxia; J96.22 Acute and chronic respiratory failure with hypercapnia; J44.0 Chronic obstructive pulmonary disease with (acute) lower respiratory infection; I50.32 Chronic diastolic (congestive) heart failure; I48.91 Unspecified atrial fibrillation; F32.9 Major depressive disorder, single episode, unspecified; D64.9 Anemia, unspecified; Z93.0 Tracheostomy status; I11.0 Hypertensive heart disease with heart failure; K21.9 Gastro-esophageal reflux disease without esophagitis; E03.9 Hypothyroidism, unspecified; M19.90 Unspecified osteoarthritis, unspecified site; D50.9 Iron deficiency anemia, unspecified; Z85.118 Personal history of other malignant neoplasm of bronchus and lung; K59.00 Constipation, unspecified